=== PATIENT | male | born 1950 | race Caucasian/White ===

== ENCOUNTER → 2017-02-02 | Outpatient (CLI) | payer OTHER ==
[~2017-02-02] MED LIST: AMIT25TA9 PO; AMLO5TAB2 PO; ASP81CT PO; ASPI-84; ATOR40TA PO; ATRV10T PO; AVOD0.5CAP PO; CCLB10TRX; CYCL10TA9 PO; DICY20TA10 PO; DULO30CA; FESO8TAB PO; FLUT12AE4 IH; FLUT16SP22 NS; FLUT1DIS26 IH; HC A28.3 PR; HYDR-1231 PO; HYDR-31; HYDR-3583 PO; HYDR-3816 PO; HYDR1TAB75; HYOS0.1217 PO; HYOS0.1283 SL; MELA1TAB10 PO; NAPR500T3 PO; ONDA8TAB12 PO; ONDA8TAB9 PO; OSLT75C PO; PANT40TA2 PO; PNT40TEC; PREG150C PO; PROM25SU43 RC; PROP20TA23; PROP20TA5 PO; RABE20TA PO; SERT50TA9 PO; SIMV40TA2; SUCR1TAB36 PO; SUMA100T3 PO; TAMS0.4C2 PO; TMSL.4C; TRAM50TA2; TRM50T PO
--- NOTE | 2017-02-02 15:50 | Diagnostic Imaging Report ---
Non-vascular ultrasound of the lateral aspect of the left foot. INDICATION: Red painful lump for 35 years. FINDINGS: There is a 2 x 1.4 x 2.6 cm hyperechoic poorly defined lesion with no internal vascularity demonstrated with color Doppler seen along the lateral aspect of the left foot. Etiology is uncertain. IMPRESSION: 2 cm nonspecific hyperechoic mass corresponding to the palpable lesion in the lateral left aspect of the foot. Correlate clinically and with MRI evaluation if needed. Dictated by: Dictated on workstation # [id number]
== END ==
LOC: RAD 13:36
PROVIDERS: ATTEND Nurse Practitioner Community Health
DX: Q27.9 Congenital malformation of peripheral vascular system, unspecified (principal); R22.42 Localized swelling, mass and lump, left lower limb
CPT/HCPCS: 76881

== ENCOUNTER 2017-02-28 05:34 | Outpatient (CLI) | payer OTHER ==
[~2017-02-28] VITALS: Ht 172.7 cm; Wt 72.6 kg
== END 2017-02-28 11:19 ==
LOC: PREOP 05:34
PROVIDERS: ATTEND Surgery
DX: Z01.818 Encounter for other preprocedural examination (principal); R22.42 Localized swelling, mass and lump, left lower limb

== ENCOUNTER 2017-03-04 07:40 | Day surgery (SDC) | payer OTHER ==
[~2017-03-04] VITALS: Ht 172.7 cm; Wt 72.6 kg
[2017-03-04] MEDS ORDERED: ceFAZolin 1,000 MG (ANCEF) VIAL ONE (07:51)
[2017-03-04] MEDS ORDERED: NS (IVPB) 50 ML ONE ×2 (07:52→10:21)
[2017-03-04 08:05] VITALS: BP 160/104
[2017-03-04] MEDS ORDERED: FAMOTIDINE 20MG/2ML IV (PEPCID) IV ONE (08:15)
[2017-03-04] MEDS ORDERED: meTOprolol 5 MG/5 ML (LOPRESSOR) VIAL IV ONE (08:15)
[2017-03-04] MEDS: LACTATED RINGERS 1,000 ML IV PRN ×2 (08:24→11:12)
[2017-03-04] MEDS ORDERED: TIOT18CA2 IH (09:10)
[2017-03-04] MEDS ORDERED: fentaNYL INJECTION 100 MCG/2 ML AMP ONE (10:09)
[2017-03-04] MEDS ORDERED: ONDANSETRON 4 MG/2 ML (SDV) Z0FRAN ONE (10:09)
[2017-03-04] MEDS ORDERED: SEVOFLURANE (ULTANE) 15 ML INHAL SOLN ONE (10:09)
[2017-03-04] MEDS ORDERED: proPOfol 200 MG/20 ML (DIPRIVAN) VIAL IV ONE (10:09)
[2017-03-04] MEDS ORDERED: LIDOCAINE PF 2% 5 ML (XYLOCAINE) VIAL ONE (10:09)
[2017-03-04] MEDS ORDERED: MIDAZOLAM 2 MG/2 ML (VERSED) VIAL ONE ×2 (10:12→10:13)
[2017-03-04] MEDS ORDERED: BUP/EPI 0.25% 1:200,000 (MARCAINE) 10 ML VIAL IJ ONE (10:15)
--- NOTE | 2017-03-04 10:16 | Progress Note-Pre Operative ---
Pre-Operative Progress Note H&P Reviewed The H&P was reviewed, patient examined and no changes noted. Date Seen by Provider: Mar 04, 2017 Time Seen by Provider: 10:15 Date H&P Reviewed: Mar 04, 2017 Time H&P Reviewed: 10:16 Pre-Operative Diagnosis: lump of left foot SHINE ALLEN MD Mar 04, 2017 10:16 am
[2017-03-04] MEDS ORDERED: CLINDAMYCIN 600 MG/4ML (CLEOCIN) VIAL ONE (10:21)
[2017-03-04] MEDS ORDERED: LACTATED RINGERS 1,000 ML IV ONE (10:41)
--- NOTE | 2017-03-04 11:03 | Progress Note-Post Operative ---
Post-Operative Progess Note Surgeon (s)/Data Communications Engineer (s) Surgeon SHINE ALLEN MD Data Communications Engineer: NOT APPLICABLE Pre-Operative Diagnosis lump of left foot Post-Operative Diagnosis SAME Procedure & Operative Findings Date of Procedure 03/04/17 Procedure Performed/Findings EXCISION Anesthesia Type gEN. Estimated Blood Loss Estimated blood loss (mL): MINIMAL Specimens/Packing Specimens Removed LUMP FROM LEFT SHINE ALLEN MD Mar 04, 2017 11:03 am
[2017-03-04] MEDS ORDERED: HYDR-3812 PO (11:04)
--- NOTE | 2017-03-04 11:05 | Discharge Inst-Simple/Standard ---
Discharge Inst-Standard Discharge Medications New, Converted or Re-Newed RX: RX on Chart Patient Instructions/Follow Up Plan of Care/Instructions/FU: LEFT FOOT TO BE KEPT ELEVATED. dRESSING TO BE REPLACED WITH A bAND-aID IN 48 HOURS. fOLLOW-UP WITH MY NURSE IN 2 WEEKS FOR SUTURE REMOVAL Activity as Tolerated: Yes Discharge Diet: No Restrictions SHINE ALLEN MD Mar 04, 2017 11:05 am
[2017-03-04] MEDS ORDERED: morphine INJ 10 MG/ML 1ML (SYR OR VIAL) IVP PRN (11:15)
[2017-03-04] MEDS ORDERED: MEPERIDINE (DEMEROL) INJ 50 MG/ML IVP PRN (11:15)
[2017-03-04 12:10] VITALS: BP 155/100
[2017-03-04 12:40] VITALS: BP 150/85
--- NOTE | 2017-03-04 12:42 | OPERATIVE REPORT ---
DATE OF SERVICE: 03/04/2017 PREOPERATIVE DIAGNOSIS: A 2 cm lump, left lateral foot. POSTOPERATIVE DIAGNOSIS: A 2 cm lump, left lateral foot. OPERATION: Excision. SURGEON: Shine Allen MD ANESTHESIA: General anesthesia. BLOOD LOSS: Minimal. FLUIDS: 800 mL of crystalloids. TYPE OF WOUND: Type 1 was (clean wound). INDICATION FOR PROCEDURE: This gentleman presented with a painful lump along the lateral aspect of the left foot requiring histological diagnosis. He was offered formal excision to achieve this. Informed consent was obtained after reviewing the operative details and complications of postoperative wound infection and recurrence. DESCRIPTION OF PROCEDURE: He was placed supine on the operating table and general anesthesia induced. Clindamycin was administered intravenously as prophylaxis against wound infection. The left foot was prepared and draped in the usual sterile manner. Pre-emptive analgesia was established using 0.25% Marcaine with epinephrine. An elliptical incision about 4 cm long was made and the lesion excised down to the subcutaneous tissue. The defect was then closed using interrupted 3-0 nylon sutures. A nonadherent dressing was applied. He tolerated the procedure well, was extubated in the operating room and taken to the recovery room in a stable condition. Holland, sponges and instruments were correct at the end of the operation. Job ID: [id number] DocumentID: [id number] Dictated Date: 03/04/2017 11:02:14 Hospice Registered Nurse Date: 03/04/2017 12:41:45 Dictated By: SHINE ALLEN MD [facility]
[2017-03-07] MEDS ORDERED: ceFAZolin 1 GM/NS 50 ML IVPB IV ONE ×2 (07:45)
--- OUTSIDE RECORDS SUMMARY | 2017-03-09 12:07 | XMS REPORT ---
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
--- OUTSIDE RECORDS SUMMARY | 2017-03-09 12:08 | XMS REPORT ---
Author Author LASHAY BLACK [facility] Address [address] [place] [address] Care Team Providers Care Nursing Care Partner Name Role Phone LASHAY BLACK Unavailable PROBLEMS Type Condition ICD9-CM Code [id number] Code Onset Dates Condition Status SNOMED Code Problem Cervicalgia M54.2 Active 86092638 Problem Anxiety F41.9 Active 75724604 Problem Unspecified asthma, uncomplicated J45.909 Active 058984061 Problem Hypertension I10 Active 68447752 Problem Chronic obstructive pulmonary disease, unspecified J44.9 Active [id number] ALLERGIES No Known Allergies SOCIAL HISTORY No smoking Hx information available PLAN OF CARE VITAL SIGNS MEDICATIONS No Known Medications RESULTS No Results PROCEDURES No Known procedures IMMUNIZATIONS No Known Immunizations
--- OUTSIDE RECORDS SUMMARY | 2017-03-09 12:08 | XMS REPORT ---
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
--- OUTSIDE RECORDS SUMMARY | 2017-03-09 12:08 | XMS REPORT ---
Author Author LASHAY BLACK Organization [employer] Address Unknown Phone Unavailable Care Team Providers Care Volunteer Services Manager Name Role Phone LASHAY BLACK CP Unavailable Allergies No Known Allergies Problems Problem Type Condition Code Onset Dates Condition Status Problem Unspecified hearing loss 389.9 Active Problem Other chronic pain 338.29 Active Problem Asthma, unspecified, with (acute) exacerbation 493.92 Active Assessment Cervicalgia M54.2 Active Problem Anxiety F41.9 Active Problem Hypertension I10 Active Problem Cervicalgia M54.2 Active Problem Postconcussion syndrome 310.2 Active Problem Post-traumatic headache, unspecified 339.20 Active Problem Cervicalgia 723.1 Active 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
--- OUTSIDE RECORDS SUMMARY | 2017-03-09 12:08 | XMS REPORT ---
Author Author LASHAY BLACK [facility] Address [address] [place] [address] Care Team Providers Care Wood Crew Supervisor Name Role Phone LASHAY BLACK Unavailable PROBLEMS Type Condition ICD9-CM Code AYA13-LO Code Onset Dates Condition Status SNOMED Code Problem Cervicalgia M54.2 Active 46938663 Problem Anxiety F41.9 Active 80935402 Problem Unspecified asthma, uncomplicated J45.909 Active 322332607 Assessment Other chronic pain G89.29 Aug, Active 34884550 Problem Hypertension I10 Active 29506609 Problem Chronic obstructive pulmonary disease, unspecified J44.9 Active [id number] ALLERGIES No Known Allergies SOCIAL HISTORY No smoking Hx information available PLAN OF CARE VITAL SIGNS MEDICATIONS Medication Instructions Dosage Frequency Start Date End Date Duration Status Hydrocodone-Acetaminophen 7.5-325 MG Orally 3 times a day 1 tablet as needed for pain 8h Nov, 28 days Active RESULTS No Results PROCEDURES No Known procedures IMMUNIZATIONS No Known Immunizations
--- OUTSIDE RECORDS SUMMARY | 2017-03-09 12:08 | XMS REPORT ---
Author Author LASHAY BLACK Organization [employer] Address Unknown Phone Unavailable Care Team Providers Care Machine Shop Worker Name Role Phone LASHAY BLACK CP Unavailable [...] Start Date End Date Status Dosage Hydrocodone-Acetaminophen [facility] [address]-91 7.5-325 MG December 12, 2014 take 1 tablet by Oral route 3 times per day as needed for pain PRN Must last 28 days Results No Known Results Summary Purpose eClinicalWorks Submission
--- OUTSIDE RECORDS SUMMARY | 2017-03-09 12:08 | XMS REPORT ---
Author Author HAZEL VELA [facility] eClinical[employer] Address Unknown Phone Unavailable Care Team Providers Care Junior Architect Name Role Phone HAZEL VELA CP Unavailable Allergies, Adverse Reactions, Alerts Substance Reaction Event Type Penicillin V Potassium Info Not Available Drug Allergy Penicillamine Info Not Available Drug Allergy Cardura XL Info Not Available Drug Allergy Problems Problem Type Condition Code Onset Dates Condition Status Assessment Chest pain R07.9 Active Problem Asthma, unspecified, with (acute) exacerbation 493.92 Active Problem Unspecified hearing loss 389.9 Active Problem Hypertension I10 Active Problem Cervicalgia 723.1 Active Problem Anxiety F41.9 Active Problem Post-traumatic headache, unspecified 339.20 Active Problem Other chronic pain 338.29 Active 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 cyclobenzaprine [facility] [address]-88 10 mg November 25, 2014 1 tablet by Oral route 3 times per day PRN Hydrocodone-Acetaminophen [facility] [address]-70 7.5-325 MG Orally 3 times a day December 12, 2014 1 tablet as needed for pain Aspirin Adult Low Strength [facility] [address]-61 81 MG Orally Once a day 1 tablet Ibuprofen [facility] [address]-81 200 MG Orally every 6 hrs 1 tablet as needed Naproxen [facility] 48398300432 500 MG TAKE ONE TABLET BY MOUTH TWICE DAILY WITH FOOD Lidoderm [facility] [address]-03 5 %(700 mg/patch) Jun 28, 2012 1 PATCH by Topical route 1 time per day(remove patch(s) after 12 hours) Bentyl [facility] [address]-16 20 MG Orally Four times a day Oct 27, 2015 February 24, 2016 1 tablet Avodart [facility] [address]-38 0.5 MG Aug 13, 2014 take 1 capsule (0.5 mg) by oral route once daily Imitrex [facility] [address]-17 25 MG Orally Twice a day 1 tablet as needed Tamsulosin HCl [facility] [address]-66 0.4 MG Orally Once a day 1 capsule 30 minutes after the same meal each day Flonase Allergy Relief [facility] [address]-85 50 MCG/ACT Nasally twice a day December 18, 2015 1 spray in each nostril Advair Diskus [facility] [address]-59 250 mcg-50 mcg Inhalation May 03, 2014 1 puffs 2 times per day Lyrica [facility] [address]-48 150 MG Orally Twice a day February 18, 2015 1 capsule Sertraline HCl [facility] [address]-21 100 MG Orally Once a day 1 tablet Procedures Procedure Coding System Code Date Office Visit, Est Pt., Level 4 CPT-4 31064 December 31, 2015 MEASURE BLOOD OXYGEN LEVEL CPT-4 01593 December 31, 2015 Vital Signs Date/Time: December 31, 2015 Cardiac Monitoring Heart Rate 72 bpm Weight 172 lbs Height 68 in BMI 26.15 Index Oximetry 96 % Blood Pressure Diastolic 80 mmHg Blood Pressure Systolic 120 mmHg Results No Known Results Summary Purpose eClinicalWorks Submission
--- OUTSIDE RECORDS SUMMARY | 2017-03-09 12:08 | XMS REPORT ---
Author Author LASHAY BLACK Organization [employer] Address Unknown Phone Unavailable Care Team Providers Care Industrial Engineering Analyst Name Role Phone LASHAY BLACK CP Unavailable [...] Start Date End Date Status Dosage Hydrocodone-Acetaminophen [facility] [address]-74 7.5-325 MG December 12, 2014 take 1 tablet by Oral route 3 times per day as needed for pain PRN Must last 28 days Results No Known Results Summary Purpose eClinicalWorks Submission
--- OUTSIDE RECORDS SUMMARY | 2017-03-09 12:10 | XMS REPORT | Continuity of Care Document ---
Author Author [facility] Address Unknown Phone Unavailable Allergies Active Description Code Type Severity Reaction Onset Reported/Identified Relationship to Patient Clinical Status Yes Penicillins [id number] Drug Allergy Unknown N/A 07/11/2007 Yes Penicillins Drug Allergy N/A N/A 02/19/2010 Yes Penicillins Drug Allergy 02/19/2010 Yes Cardura XL 4 mg Tablet Extended Rel 24 hr Drug Allergy N/A N/A 04/20/2012 Yes Cardura XL 4 mg Tablet Extended Rel 24 hr Drug Allergy 04/20/2012 Medications Problems Date Dx Coded Attending Type Code Diagnosis Diagnosed By 08/21/2008 PARADISE LOPEZ DO 569.3 Bleeding Rectal 08/21/2008 PARADISE LOPEZ DO 719.42 Pain In Joint Involving Upper Arm 08/21/2008 PARADISE LOPEZ DO 719.46 Pain In Joint Involving Lower Leg 08/21/2008 PARADISE LOPEZ DO 569.3 Bleeding Rectal 08/21/2008 PARADISE LOPEZ DO 719.42 Pain In Joint Involving Upper Arm 08/21/2008 PARADISE LOPEZ DO 719.46 Pain In Joint Involving Lower Leg 08/21/2008 LASHAY BLACK APRN S 569.3 Bleeding Rectal 08/21/2008 LASHAY BLACK APRN S 719.42 Pain In Joint Involving Upper Arm 08/21/2008 LASHAY BLACK APRN S 719.46 Pain In Joint Involving Lower Leg 08/21/2008 569.3 Bleeding Rectal 08/21/2008 719.42 Pain In Joint Involving Upper Arm 08/21/2008 719.46 Pain In Joint Involving Lower Leg 08/21/2008 PARADISE LOPEZ DO 569.3 Bleeding Rectal 08/21/2008 PARADISE LOPEZ DO 719.42 Pain In Joint Involving Upper Arm 08/21/2008 PARADISE LOPEZ DO 719.46 Pain In Joint Involving Lower Leg 08/21/2008 LOPEZ DO, PARADISE K 569.3 Bleeding Rectal 08/21/2008 LOPEZ DO PARADISE K 719.42 Pain In Joint Involving Upper Arm 08/21/2008 LOPEZ DO, PARADISE K 719.46 Pain In Joint Involving Lower Leg 08/21/2008 LOPEZ DO, PARADISE K 569.3 Bleeding Rectal 08/21/2008 LOPEZ DO PARADISE K 719.42 Pain In Joint Involving Upper Arm 08/21/2008 LOPEZ DO PARADISE K 719.46 Pain In Joint Involving Lower Leg 08/21/2008 SOFIA CHILDS LASHAY S 569.3 Bleeding Rectal 08/21/2008 SOFIA CHILDS LASHAY S 719.42 Pain In Joint Involving Upper Arm 08/21/2008 SOFIA CHILDS LASHAY S 719.46 Pain In Joint Involving Lower Leg 08/21/2008 SOFIA CHILDS LASHAY S 569.3 Bleeding Rectal 08/21/2008 ARNAV BLACK APRNNDA S 719.42 Pain In Joint Involving Upper Arm 08/21/2008 ARNAV BLACK APRNNDA S 719.46 Pain In Joint Involving Lower Leg 08/21/2008 ESVIN LINDA MD 569.3 Bleeding Rectal 08/21/2008 ESVIN LINDA MD 719.42 Pain In Joint Involving Upper Arm 08/21/2008 ESVIN LINDA MD 719.46 Pain In Joint Involving Lower Leg 08/21/2008 SOFIA CHILDS LASHAY S 569.3 Bleeding Rectal 08/21/2008 ARNAV BLACK APRNNDA S 719.42 Pain In Joint Involving Upper Arm 08/21/2008 SOFIA CHILDS LASHAY S 719.46 Pain In Joint Involving Lower Leg 08/21/2008 SOFIA CHILDS LASHAY S 569.3 Bleeding Rectal 08/21/2008 SOFIA CHILDS LASHAY S 719.42 Pain In Joint Involving Upper Arm 08/21/2008 SOFIA CHILDS LASHAY S 719.46 Pain In Joint Involving Lower Leg 08/21/2008 SOFIA CHILDS LASHAY S 569.3 Bleeding Rectal 08/21/2008 SOFIA CHILDS LASHAY S 719.42 Pain In Joint Involving Upper Arm 08/21/2008 SOFIA JOB ANALYST LASHAY S 719.46 Pain In Joint Involving Lower Leg 08/21/2008 SOFIA JOB ANALYST, LASHAY S 569.3 Bleeding Rectal 08/21/2008 SOFIA JOB ANALYST, LASHAY S 719.42 Pain In Joint Involving Upper Arm 08/21/2008 SOFIA JOB ANALYST, LASHAY S 719.46 Pain In Joint Involving Lower Leg 08/21/2008 SOFIA JOB ANALYST, LASHAY S 569.3 Bleeding Rectal 08/21/2008 SOFIA JOB ANALYST, LASHAY S 719.42 Pain In Joint Involving Upper Arm 08/21/2008 SOFIA JOB ANALYST, LASHAY S 719.46 Pain In Joint Involving Lower Leg 08/21/2008 SOFIA JOB ANALYST LASHAY S 569.3 Bleeding Rectal 08/21/2008 SOFIA JOB ANALYST LASHAY S 719.42 Pain In Joint Involving Upper Arm 08/21/2008 SOFIA JOB ANALYST LASHAY S 719.46 Pain In Joint Involving Lower Leg 08/21/2008 HALEY DPM, KRYSTLE 569.3 Bleeding Rectal 08/21/2008 HALEY DPM, KRYSTLE 719.42 Pain In Joint Involving Upper Arm 08/21/2008 HALEY DPM, KRYSTLE 719.46 Pain In Joint Involving Lower Leg 08/21/2008 MADL JOB ANALYST, RAJIV L 569.3 Bleeding Rectal 08/21/2008 MADL JOB ANALYST, RAJIV L 719.42 Pain In Joint Involving Upper Arm 08/21/2008 MADL JOB ANALYST, RAJIV L 719.46 Pain In Joint Involving Lower Leg 08/21/2008 SOFIA JOB ANALYST, LASHAY S 569.3 Bleeding Rectal 08/21/2008 SOFIA JOB ANALYST, LASHAY S 719.42 Pain In Joint Involving Upper Arm 08/21/2008 SOFIA JOB ANALYST, LASHAY S 719.46 Pain In Joint Involving Lower Leg 09/23/2008 LOPEZ DO, PARADISE K 272.0 HYPERCHOLESTEROLEMIA PURE 09/23/2008 LOPEZ DO, PARADISE K 401.1 HYPERTENSION, BENIGN ESSENTIAL 09/23/2008 LOPEZ DO, PARADISE K 272.0 HYPERCHOLESTEROLEMIA PURE 09/23/2008 LOPEZ DO, PARADISE K 401.1 HYPERTENSION, BENIGN ESSENTIAL 09/23/2008 SOFIA JOB ANALYST, LASHAY S 272.0 HYPERCHOLESTEROLEMIA PURE 09/23/2008 SOFIA JOB ANALYST, LASHAY S 401.1 HYPERTENSION, BENIGN ESSENTIAL 09/23/2008 272.0 HYPERCHOLESTEROLEMIA PURE 09/23/2008 401.1 HYPERTENSION, BENIGN ESSENTIAL 09/23/2008 LOPEZ DO, PARADISE K 272.0 HYPERCHOLESTEROLEMIA PURE 09/23/2008 LOPEZ DO, PARADISE K 401.1 HYPERTENSION, BENIGN ESSENTIAL 09/23/2008 LOPEZ DO, PARADISE K 272.0 HYPERCHOLESTEROLEMIA PURE 09/23/2008 LOPEZ DO, PARADISE K 401.1 HYPERTENSION, BENIGN ESSENTIAL 09/23/2008 LOPEZ DO, PARADISE K 272.0 HYPERCHOLESTEROLEMIA PURE 09/23/2008 LOPEZ DO, PARADISE K 401.1 HYPERTENSION, BENIGN ESSENTIAL 09/23/2008 SOFIA JOB ANALYST, LASHAY S 272.0 HYPERCHOLESTEROLEMIA PURE 09/23/2008 SOFIA JOB ANALYST, LASHAY S 401.1 HYPERTENSION, BENIGN ESSENTIAL 09/23/2008 SOFIA JOB ANALYST, LASHAY S 272.0 HYPERCHOLESTEROLEMIA PURE 09/23/2008 SOFIA JOB ANALYST, LASHAY S 401.1 HYPERTENSION, BENIGN ESSENTIAL 09/23/2008 ESVIN LINDA MD 272.0 HYPERCHOLESTEROLEMIA PURE 09/23/2008 ESVIN LINDA MD 401.1 HYPERTENSION, BENIGN ESSENTIAL 09/23/2008 SOFIA JOB ANALYST, LASHAY S 272.0 HYPERCHOLESTEROLEMIA PURE 09/23/2008 SOFIA JOB ANALYST, LASHAY S 401.1 HYPERTENSION, BENIGN ESSENTIAL 09/23/2008 SOFIA JOB ANALYST, LASHAY S 272.0 HYPERCHOLESTEROLEMIA PURE 09/23/2008 SOFIA JOB ANALYST, LASHAY S 401.1 HYPERTENSION, BENIGN ESSENTIAL 09/23/2008 SOFIA JOB ANALYST, LASHAY S 272.0 HYPERCHOLESTEROLEMIA PURE 09/23/2008 SOFIA JOB ANALYST, ALSHAY S 401.1 HYPERTENSION, BENIGN ESSENTIAL 09/23/2008 SOFIA JOB ANALYST, LASHAY S 272.0 HYPERCHOLESTEROLEMIA PURE 09/23/2008 SOFIA JOB ANALYST, LASHAY S 401.1 HYPERTENSION, BENIGN ESSENTIAL 09/23/2008 SOFIA JOB ANALYST, LASHAY S 272.0 HYPERCHOLESTEROLEMIA PURE 09/23/2008 SOFIA JOB ANALYST, LASHAY S 401.1 HYPERTENSION, BENIGN ESSENTIAL 09/23/2008 SOFIA JOB ANALYST, LASHAY S 272.0 HYPERCHOLESTEROLEMIA PURE 09/23/2008 SOFIA JOB ANALYST, LASHAY S 401.1 HYPERTENSION, BENIGN ESSENTIAL 09/23/2008 HALEY DPM, KRYSTLE 272.0 HYPERCHOLESTEROLEMIA PURE 09/23/2008 HALEY DPM, KRYSTLE 401.1 HYPERTENSION, BENIGN ESSENTIAL 09/23/2008 MADL JOB ANALYST, RAJIV L 272.0 HYPERCHOLESTEROLEMIA PURE 09/23/2008 MADL JOB ANALYST, RAJIV L 401.1 HYPERTENSION, BENIGN ESSENTIAL 09/23/2008 SOFIA OLMOSN, LASHAY S 272.0 HYPERCHOLESTEROLEMIA PURE 09/23/2008 SOFIA JOB ANALYST, LASHAY S 401.1 HYPERTENSION, BENIGN ESSENTIAL 10/03/2008 PARADISE LOPEZ DO K 719.47 Pain In Joint Involving Ankle And Foot 10/03/2008 PARADISE LOPEZ DO K 719.47 Pain In Joint Involving Ankle And Foot 10/03/2008 LASHAY BLACK APRN S 719.47 Pain In Joint Involving Ankle And Foot 10/03/2008 719.47 Pain In Joint Involving Ankle And Foot 10/03/2008 PARADISE LOPEZ DO K 719.47 Pain In Joint Involving Ankle And Foot 10/03/2008 PARADISE LOPEZ DO K 719.47 Pain In Joint Involving Ankle And Foot 10/03/2008 PARADISE LOPEZ DO K 719.47 Pain In Joint Involving Ankle And Foot 10/03/2008 LASHAY BLACK APRN S 719.47 Pain In Joint Involving Ankle And Foot 10/03/2008 LASHAY BLACK APRN 719.47 Pain In Joint Involving Ankle And Foot 10/03/2008 ESVIN LINDA MD 719.47 Pain In Joint Involving Ankle And Foot 10/03/2008 LASHAY BLACK APRN S 719.47 Pain In Joint Involving Ankle And Foot 10/03/2008 LASHAY BLACK APRN S 719.47 Pain In Joint Involving Ankle And Foot 10/03/2008 LASHAY BLACK APRN S 719.47 Pain In Joint Involving Ankle And Foot 10/03/2008 LASHAY BLACK APRN S 719.47 Pain In Joint Involving Ankle And Foot 10/03/2008 SOFIA JOB ANALYST, LASHAY S 719.47 Pain In Joint Involving Ankle And Foot 10/03/2008 SOFIA JOB ANALYST, LASHAY S 719.47 Pain In Joint Involving Ankle And Foot 10/03/2008 HALEY DPKRYSTLE Gutierrez 719.47 Pain In Joint Involving Ankle And Foot 10/03/2008 MADL JOB ANALYST, RAJIV L 719.47 Pain In Joint Involving Ankle And Foot 10/03/2008 SOFIA JOB ANALYST, LASHAY S 719.47 Pain In Joint Involving Ankle And Foot 10/25/2008 LOPEZ DO, PARADISE K 726.79 Other Enthesopathy Of Ankle And Tarsus 10/25/2008 LOPEZ DO, PARADISE K 726.79 Other Enthesopathy Of Ankle And Tarsus 10/25/2008 SOFIA JOB ANALYST, LASHAY S 726.79 Other Enthesopathy Of Ankle And Tarsus 10/25/2008 726.79 Other Enthesopathy Of Ankle And Tarsus 10/25/2008 LOPEZ DO, PARADISE K 726.79 Other Enthesopathy Of Ankle And Tarsus 10/25/2008 LOPEZ DO, PARADISE K 726.79 Other Enthesopathy Of Ankle And Tarsus 10/25/2008 LOPEZ DO, PARADISE K 726.79 Other Enthesopathy Of Ankle And Tarsus 10/25/2008 SOFIA JOB ANALYST, LASHAY S 726.79 Other Enthesopathy Of Ankle And Tarsus 10/25/2008 SOFIA JOB ANALYST, LASHAY S 726.79 Other Enthesopathy Of Ankle And Tarsus 10/25/2008 ESVIN LINDA MD 726.79 Other Enthesopathy Of Ankle And Tarsus 10/25/2008 SOFIA JOB ANALYST, LASHAY S 726.79 Other Enthesopathy Of Ankle And Tarsus 10/25/2008 SOFIA JOB ANALYST, LASHAY S 726.79 Other Enthesopathy Of Ankle And Tarsus 10/25/2008 SOFIA JOB ANALYST, LASHAY S 726.79 Other Enthesopathy Of Ankle And Tarsus 10/25/2008 SOFIA JOB ANALYST, LASHAY S 726.79 Other Enthesopathy Of Ankle And Tarsus 10/25/2008 SOFIA JOB ANALYST, LASHAY S 726.79 Other Enthesopathy Of Ankle And Tarsus 10/25/2008 SOFIA JOB ANALYST, LASHAY S 726.79 Other Enthesopathy Of Ankle And Tarsus 10/25/2008 HALEY DPM, KRYSTLE 726.79 Other Enthesopathy Of Ankle And Tarsus 10/25/2008 MADL JOB ANALYST, RAJIV L 726.79 Other Enthesopathy Of Ankle And Tarsus 10/25/2008 SOFIA JOB ANALYST, LASHAY S 726.79 Other Enthesopathy Of Ankle And Tarsus 05/14/2009 LOPEZ DO, PARADISE K 789.00 Abdominal Pain Of Childhood 05/14/2009 LOPEZ DO, PARADISE K 789.00 Abdominal Pain Of Childhood 05/14/2009 SOFIA JOB ANALYST, LASHAY S 789.00 Abdominal Pain Of Childhood 05/14/2009 789.00 Abdominal Pain Of Childhood 05/14/2009 LOPEZ DO, PARADISE K 789.00 Abdominal Pain Of Childhood 05/14/2009 LOPEZ DO, PARADISE K 789.00 Abdominal Pain Of Childhood 05/14/2009 LOPEZ DO, PARADISE K 789.00 Abdominal Pain Of Childhood 05/14/2009 SOFIA JOB ANALYST, LASHAY S 789.00 Abdominal Pain Of Childhood 05/14/2009 SOFIA JOB ANALYST, LASHAY S 789.00 Abdominal Pain Of Childhood 05/14/2009 ESVIN LINDA MD 789.00 Abdominal Pain Of Childhood 05/14/2009 SOFIA JOB ANALYST, LASHAY S 789.00 Abdominal Pain Of Childhood 05/14/2009 SOFIA JOB ANALYST, LASHAY S 789.00 Abdominal Pain Of Childhood 05/14/2009 SOFIA JOB ANALYST, LASHAY S 789.00 Abdominal Pain Of Childhood 05/14/2009 SOFIA JOB ANALYST, LASHAY S 789.00 Abdominal Pain Of Childhood 05/14/2009 SOFIA JOB ANALYST, LASHAY S 789.00 Abdominal Pain Of Childhood 05/14/2009 SOFIA JOB ANALYST, LASHAY S 789.00 Abdominal Pain Of Childhood 05/14/2009 HALEY DPM, KRYSTLE 789.00 Abdominal Pain Of Childhood 05/14/2009 MADL JOB ANALYST, RAJIV L 789.00 Abdominal Pain Of Childhood 05/14/2009 SOFIA OLMOSN, LASHAY S 789.00 Abdominal Pain Of Childhood 05/21/2009 LOPEZ DO, PARADISE K 601.0 Prostatitis Acute Bacterial 05/21/2009 LOPEZ DO, PARADISE K 601.0 Prostatitis Acute Bacterial 05/21/2009 SOFIA JOB ANALYST, LASHAY S 601.0 Prostatitis Acute Bacterial 05/21/2009 601.0 Prostatitis Acute Bacterial 05/21/2009 LOPEZ DO, PARADISE K 601.0 Prostatitis Acute Bacterial 05/21/2009 LOPEZ DO, PARADISE K 601.0 Prostatitis Acute Bacterial 05/21/2009 LOPEZ DO, PARADISE K 601.0 Prostatitis Acute Bacterial 05/21/2009 SOFIA JOB ANALYST, LASHAY S 601.0 Prostatitis Acute Bacterial 05/21/2009 SOFIA JOB ANALYST, LASHAY S 601.0 Prostatitis Acute Bacterial 05/21/2009 ESVIN LINDA MD 601.0 Prostatitis Acute Bacterial 05/21/2009 SOFIA JOB ANALYST, LASHAY S 601.0 Prostatitis Acute Bacterial 05/21/2009 SOFIA JOB ANALYST, LASHAY S 601.0 Prostatitis Acute Bacterial 05/21/2009 SOFIA JOB ANALYST, LASHAY S 601.0 Prostatitis Acute Bacterial 05/21/2009 SOFIA JOB ANALYST, LASHAY S 601.0 Prostatitis Acute Bacterial 05/21/2009 SOFIA JOB ANALYST, LASHAY S 601.0 Prostatitis Acute Bacterial 05/21/2009 SOFIA JOB ANALYST, LASHAY S 601.0 Prostatitis Acute Bacterial 05/21/2009 HALEY WELCH, KRYSTLE 601.0 Prostatitis Acute Bacterial 05/21/2009 FIORDALIZA JOB ANALYST, RAJIV L 601.0 Prostatitis Acute Bacterial 05/21/2009 SOFIA JOB ANALYST, LASHAY S 601.0 Prostatitis Acute Bacterial 02/19/2010 LOPEZ DO, PARADISE K 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 02/19/2010 LOPEZ DO, PARADISE K 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 02/19/2010 SOFIA OLMOSN, LASHAY S 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 02/19/2010 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 02/19/2010 LOPEZ DO, PARADISE K 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 02/19/2010 LOPEZ DO, PARADISE K 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 02/19/2010 LOPEZ DO, PARADISE K 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 02/19/2010 SOFIA JOB ANALYST, LASHAY S 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 02/19/2010 SOFIA JOB ANALYST, LASHAY S 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 02/19/2010 ESVIN LINDA MD 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 02/19/2010 SOFIA JOB ANALYST, LASHAY S 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 02/19/2010 SOFIA JOB ANALYST, LASHAY S 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 02/19/2010 SOFIA JOB ANALYST, LASHAY S 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 02/19/2010 SOFIA JOB ANALYST, LASHAY S 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 02/19/2010 SOFIA JOB ANALYST, LASHAY S 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 02/19/2010 SOFIA JOB ANALYST, LASHAY S 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 02/19/2010 HALEY DPM, KRYSTLE 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 02/19/2010 MADL JOB ANALYST, RAJIV L 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 02/19/2010 SOFIA JOB ANALYST, LASHAY S 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 06/22/2010 LOPEZ DO, PARADISE K 788.1 Dysuria 06/22/2010 LOPEZ DO, PARADISE K 788.1 Dysuria 06/22/2010 SOFIA JOB ANALYST, LASHAY S 788.1 Dysuria 06/22/2010 788.1 Dysuria 06/22/2010 LOPEZ DO, PARADISE K 788.1 Dysuria 06/22/2010 LOPEZ DO, PARADISE K 788.1 Dysuria 06/22/2010 LOPEZ DO, PARADISE K 788.1 Dysuria 06/22/2010 SOFIA JOB ANALYST, LASHAY S 788.1 Dysuria 06/22/2010 SOFIA JOB ANALYST, LASHAY S 788.1 Dysuria 06/22/2010 ESVIN LINDA MD 788.1 Dysuria 06/22/2010 SOFIA JOB ANALYST, LASHAY S 788.1 Dysuria 06/22/2010 SOFIA JOB ANALYST, LASHAY S 788.1 Dysuria 06/22/2010 SOFIA JOB ANALYST, LASHAY S 788.1 Dysuria 06/22/2010 SOFIA JOB ANALYST, LASHAY S 788.1 Dysuria 06/22/2010 SOFIA JOB ANALYST, LASHAY S 788.1 Dysuria 06/22/2010 SOFIA JOB ANALYST, LASHAY S 788.1 Dysuria 06/22/2010 HALEY DPM, KRYSTLE 788.1 Dysuria 06/22/2010 MADL JOB ANALYST, RAJIV L 788.1 Dysuria 06/22/2010 SOFIA JOB ANALYST, LASHAY S 788.1 Dysuria 06/29/2010 LOPEZ DO, PARADISE K 465.9 Acute Upper Respiratory Infections Of Unspecified Site 06/29/2010 LOPEZ DO PARADISE K V70.0 GENERAL MEDICAL EXAM, ROUTINE, AT HEALTH CARE FACILITY 06/29/2010 LOPEZ DO PARADISE K 465.9 Acute Upper Respiratory Infections Of Unspecified Site 06/29/2010 LOPEZ DO PARADISE K V70.0 GENERAL MEDICAL EXAM, ROUTINE, AT HEALTH CARE FACILITY 06/29/2010 SOFIA CHILDS LASHAY S 465.9 Acute Upper Respiratory Infections Of Unspecified Site 06/29/2010 SOFIA CHILDS LASHAY S V70.0 GENERAL MEDICAL EXAM, ROUTINE, AT HEALTH CARE FACILITY 06/29/2010 465.9 Acute Upper Respiratory Infections Of Unspecified Site 06/29/2010 V70.0 GENERAL MEDICAL EXAM, ROUTINE, AT HEALTH CARE FACILITY 06/29/2010 LOPEZ DO, PARADISE K 465.9 Acute Upper Respiratory Infections Of Unspecified Site 06/29/2010 LOPEZ DO PARADISE K V70.0 GENERAL MEDICAL EXAM, ROUTINE, AT HEALTH CARE FACILITY 06/29/2010 LOPEZ DO PARADISE K 465.9 Acute Upper Respiratory Infections Of Unspecified Site 06/29/2010 LOPEZ DO, PARADISE K V70.0 GENERAL MEDICAL EXAM, ROUTINE, AT HEALTH CARE FACILITY 06/29/2010 LOPEZ DO, PARADISE K 465.9 Acute Upper Respiratory Infections Of Unspecified Site 06/29/2010 LOPEZ DO, PARADISE K V70.0 GENERAL MEDICAL EXAM, ROUTINE, AT HEALTH CARE FACILITY 06/29/2010 SOFIA CHILDS LASHAY S 465.9 Acute Upper Respiratory Infections Of Unspecified Site 06/29/2010 SOFIA JOB ANALYST, LASHAY S V70.0 GENERAL MEDICAL EXAM, ROUTINE, AT HEALTH CARE FACILITY 06/29/2010 SOFIA JOB ANALYST, LASHAY S 465.9 Acute Upper Respiratory Infections Of Unspecified Site 06/29/2010 SOFIA JOB ANALYST, LASHAY S V70.0 GENERAL MEDICAL EXAM, ROUTINE, AT HEALTH CARE FACILITY 06/29/2010 ESVIN LINDA MD 465.9 Acute Upper Respiratory Infections Of Unspecified Site 06/29/2010 ESVIN LINDA MD V70.0 GENERAL MEDICAL EXAM, ROUTINE, AT HEALTH CARE FACILITY 06/29/2010 SOFIA JOB ANALYST, LASHAY S 465.9 Acute Upper Respiratory Infections Of Unspecified Site 06/29/2010 SOFIA JOB ANALYST, LASHAY S V70.0 GENERAL MEDICAL EXAM, ROUTINE, AT HEALTH CARE FACILITY 06/29/2010 SOFIA JOB ANALYST, LASHAY S 465.9 Acute Upper Respiratory Infections Of Unspecified Site 06/29/2010 SOFIA JOB ANALYST, LASHAY S V70.0 GENERAL MEDICAL EXAM, ROUTINE, AT HEALTH CARE FACILITY 06/29/2010 SOFIA JOB ANALYST, LASHAY S 465.9 Acute Upper Respiratory Infections Of Unspecified Site 06/29/2010 SOFIA JOB ANALYST, LASHAY S V70.0 GENERAL MEDICAL EXAM, ROUTINE, AT HEALTH CARE FACILITY 06/29/2010 SOFIA JOB ANALYST, LASHAY S 465.9 Acute Upper Respiratory Infections Of Unspecified Site 06/29/2010 SOFIA JOB ANALYST, LASHAY S V70.0 GENERAL MEDICAL EXAM, ROUTINE, AT HEALTH CARE FACILITY 06/29/2010 SOFIA JOB ANALYST, LASHAY S 465.9 Acute Upper Respiratory Infections Of Unspecified Site 06/29/2010 SOFIA JOB ANALYST, LASHAY S V70.0 GENERAL MEDICAL EXAM, ROUTINE, AT HEALTH CARE FACILITY 06/29/2010 SOFIA JOB ANALYST, LASHAY S 465.9 Acute Upper Respiratory Infections Of Unspecified Site 06/29/2010 SOFIA JOB ANALYST, LASHAY S V70.0 GENERAL MEDICAL EXAM, ROUTINE, AT HEALTH CARE FACILITY 06/29/2010 HALEY DPM, KRYSTLE 465.9 Acute Upper Respiratory Infections Of Unspecified Site 06/29/2010 HALEY DPM, KRYSTLE V70.0 GENERAL MEDICAL EXAM, ROUTINE, AT HEALTH CARE FACILITY 06/29/2010 MADL JOB ANALYST, ARJIV L 465.9 Acute Upper Respiratory Infections Of Unspecified Site 06/29/2010 MADL JOB ANALYST, RAJIV L V70.0 GENERAL MEDICAL EXAM, ROUTINE, AT HEALTH CARE FACILITY 06/29/2010 SOFIA JOB ANALYST, LASHAY S 465.9 Acute Upper Respiratory Infections Of Unspecified Site 06/29/2010 SOFIA JOB ANALYST, LASHAY S V70.0 GENERAL MEDICAL EXAM, ROUTINE, AT HEALTH CARE FACILITY 07/06/2010 LOPEZ DO, PARADISE K 702.0 Actinic Keratosis 07/06/2010 LOPEZ DO, PARADISE K 702.0 Actinic Keratosis 07/06/2010 SOFIA JOB ANALYST, LASHAY S 702.0 Actinic Keratosis 07/06/2010 702.0 Actinic Keratosis 07/06/2010 LOPEZ DO, PARADISE K 702.0 Actinic Keratosis 07/06/2010 LOPEZ DO, PARADISE K 702.0 Actinic Keratosis 07/06/2010 LOPEZ DO, PARADISE K 702.0 Actinic Keratosis 07/06/2010 SOFIA JOB ANALYST, LASHAY S 702.0 Actinic Keratosis 07/06/2010 SOFIA JOB ANALYST, LASHAY S 702.0 Actinic Keratosis 07/06/2010 ALEXEI WELLER, ESVIN 702.0 Actinic Keratosis 07/06/2010 SOFIA JOB ANALYST, LASHAY S 702.0 Actinic Keratosis 07/06/2010 SOFIA JOB ANALYST, LASHAY S 702.0 Actinic Keratosis 07/06/2010 SOFIA JOB ANALYST, LASHAY S 702.0 Actinic Keratosis 07/06/2010 SOFIA JOB ANALYST, LASHAY S 702.0 Actinic Keratosis 07/06/2010 SOFIA JOB ANALYST, LASHAY S 702.0 Actinic Keratosis 07/06/2010 SOFIA JOB ANALYST, LASHAY S 702.0 Actinic Keratosis 07/06/2010 KRYSTLE MAN DPM 702.0 Actinic Keratosis 07/06/2010 MADL JOB ANALYST, RAJIV L 702.0 Actinic Keratosis 07/06/2010 SOFIA JOB ANALYST, LASHAY S 702.0 Actinic Keratosis 09/29/2010 Ot 530.81 ESOPHAGEAL REFLUX 09/29/2010 Ot 553.3 DIAPHRAGMATIC HERNIA 09/29/2010 Ot 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 09/29/2010 Ot 709.9 SKIN DISORDER NOS 09/29/2010 Ot V76.51 SCREEN MAL NEOP-COLON 06/15/2011 PARADISE LOPEZ DO K 729.1 Myalgia And Myositis Unspecified 06/15/2011 PARADISE LOPEZ DO K 729.1 Myalgia And Myositis Unspecified 06/15/2011 SOFIA CHILDS LASHAY S 729.1 Myalgia And Myositis Unspecified 06/15/2011 729.1 Myalgia And Myositis Unspecified 06/15/2011 PARADISE LOPEZ DO K 729.1 Myalgia And Myositis Unspecified 06/15/2011 PARADISE LOPEZ DO K 729.1 Myalgia And Myositis Unspecified 06/15/2011 PARADISE LOPEZ DO K 729.1 Myalgia And Myositis Unspecified 06/15/2011 SOFIA JOB ANALYST, LASHAY S 729.1 Myalgia And Myositis Unspecified 06/15/2011 SOFIA JOB ANALYST, LASHAY S 729.1 Myalgia And Myositis Unspecified 06/15/2011 ALEXEI WELLER, ESVIN 729.1 Myalgia And Myositis Unspecified 06/15/2011 SOFIA JOB ANALYST, LASHAY S 729.1 Myalgia And Myositis Unspecified 06/15/2011 SOFIA JOB ANALYST, LASHAY S 729.1 Myalgia And Myositis Unspecified 06/15/2011 SOFIA JOB ANALYST, LASHAY S 729.1 Myalgia And Myositis Unspecified 06/15/2011 SOFIA JOB ANALYST, LASHAY S 729.1 Myalgia And Myositis Unspecified 06/15/2011 SOFIA JOB ANALYST, LASHAY S 729.1 Myalgia And Myositis Unspecified 06/15/2011 SOFIA JOB ANALYST, LASHAY S 729.1 Myalgia And Myositis Unspecified 06/15/2011 HALEY WELCH, KRYSTLE 729.1 Myalgia And Myositis Unspecified 06/15/2011 MADL JOB ANALYSTRAJIV 729.1 Myalgia And Myositis Unspecified 06/15/2011 SOFIA JOB ANALYST, LASHAY S 729.1 Myalgia And Myositis Unspecified 07/27/2011 LOPEZ DO, PARADISE K 461.9 Sinusitis Acute 07/27/2011 LOPEZ DO, PARADISE K 466.0 Bronchitis, Acute 07/27/2011 LOPEZ DO, PARADISE K 461.9 Sinusitis Acute 07/27/2011 LOPEZ DO, PARADISE K 466.0 Bronchitis, Acute 07/27/2011 SOFIA JOB ANALYST, LASHAY S 461.9 Sinusitis Acute 07/27/2011 SOFIA JOB ANALYST, LASHAY S 466.0 Bronchitis, Acute 07/27/2011 461.9 Sinusitis Acute 07/27/2011 466.0 Bronchitis, Acute 07/27/2011 LOPEZ DO, PARADISE K 461.9 Sinusitis Acute 07/27/2011 LOPEZ DO, PARADISE K 466.0 Bronchitis, Acute 07/27/2011 LOPEZ DO, PARADISE K 461.9 Sinusitis Acute 07/27/2011 LOPEZ DO, PARADISE K 466.0 Bronchitis, Acute 07/27/2011 LOPEZ DO, PARADISE K 461.9 Sinusitis Acute 07/27/2011 LOPEZ DO, PARADISE K 466.0 Bronchitis, Acute 07/27/2011 SOFIA JOB ANALYST, LASHAY S 461.9 Sinusitis Acute 07/27/2011 SOFIA JOB ANALYST, LASHAY S 466.0 Bronchitis, Acute 07/27/2011 SOFIA JOB ANALYST, LASHAY S 461.9 Sinusitis Acute 07/27/2011 SOFIA JOB ANALYST, LASHAY S 466.0 Bronchitis, Acute 07/27/2011 ESVIN LINDA MD 461.9 Sinusitis Acute 07/27/2011 ESVIN LINDA MD 466.0 Bronchitis, Acute 07/27/2011 SOFIA JOB ANALYST, LASHAY S 461.9 Sinusitis Acute 07/27/2011 SOFIA JOB ANALYST, LASHAY S 466.0 Bronchitis, Acute 07/27/2011 SOFIA JOB ANALYST, LASHAY S 461.9 Sinusitis Acute 07/27/2011 SOFIA JOB ANALYST, LASHAY S 466.0 Bronchitis, Acute 07/27/2011 SOFIA JOB ANALYST, LASHAY S 461.9 Sinusitis Acute 07/27/2011 SOFIA JOB ANALYST, LASHAY S 466.0 Bronchitis, Acute 07/27/2011 SOFIA JOB ANALYST, LASHAY S 461.9 Sinusitis Acute 07/27/2011 SOFIA JOB ANALYST, LASHAY S 466.0 Bronchitis, Acute 07/27/2011 SOFIA JOB ANALYST, LASHAY S 461.9 Sinusitis Acute 07/27/2011 SOFIA JOB ANALYST, LASHAY S 466.0 Bronchitis, Acute 07/27/2011 SOFIA JOB ANALYST, LASHAY S 461.9 Sinusitis Acute 07/27/2011 SOFIA JOB ANALYST, LASHAY S 466.0 Bronchitis, Acute 07/27/2011 HALEY DPM, KRYSTLE 461.9 Sinusitis Acute 07/27/2011 HALEY DPM, KRYSTLE 466.0 Bronchitis, Acute 07/27/2011 MADL JOB ANALYST, RAJIV L 461.9 Sinusitis Acute 07/27/2011 MADL JOB ANALYST, RAJIV L 466.0 Bronchitis, Acute 07/27/2011 SOFIA JOB ANALYST, LASHAY S 461.9 Sinusitis Acute 07/27/2011 SOFIA JOB ANALYST, LASHAY S 466.0 Bronchitis, Acute 08/20/2011 LOPEZ DO, PARADISE K 455.6 UNSPECIFIED HEMORRHOIDS WITHOUT COMPLICATION 08/20/2011 LOEPZ DO, PARADISE K 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 AND OTHER LOWER URINARY TRACT SYMPTOMS (LUTS) 08/20/2011 LOPEZ DO, PARADISE K 455.6 UNSPECIFIED HEMORRHOIDS WITHOUT COMPLICATION 08/20/2011 LOPEZ DO, PARADISE K 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 AND OTHER LOWER URINARY TRACT SYMPTOMS (LUTS) 08/20/2011 SOFIA JOB ANALYST, LASHAY S 455.6 UNSPECIFIED HEMORRHOIDS WITHOUT COMPLICATION 08/20/2011 SOFIA JOB ANALYST, LASHAY S 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 AND OTHER LOWER URINARY TRACT SYMPTOMS (LUTS) 08/20/2011 455.6 UNSPECIFIED HEMORRHOIDS WITHOUT COMPLICATION 08/20/2011 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 AND OTHER LOWER URINARY TRACT SYMPTOMS (LUTS) 08/20/2011 LOPEZ DO, PARADISE K 455.6 UNSPECIFIED HEMORRHOIDS WITHOUT COMPLICATION 08/20/2011 LOPEZ DO, PARADISE K 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 AND OTHER LOWER URINARY TRACT SYMPTOMS (LUTS) 08/20/2011 LOPEZ DO, PARADISE K 455.6 UNSPECIFIED HEMORRHOIDS WITHOUT COMPLICATION 08/20/2011 LOPEZ DO, PARADISE K 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 AND OTHER LOWER URINARY TRACT SYMPTOMS (LUTS) 08/20/2011 LOPEZ DO, PARADISE K 455.6 UNSPECIFIED HEMORRHOIDS WITHOUT COMPLICATION 08/20/2011 LOPEZ DO, PARADISE K 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 AND OTHER LOWER URINARY TRACT SYMPTOMS (LUTS) 08/20/2011 SOFIA JOB ANALYST, LASHAY S 455.6 UNSPECIFIED HEMORRHOIDS WITHOUT COMPLICATION 08/20/2011 SOFIA JOB ANALYST, LASHAY S 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 AND OTHER LOWER URINARY TRACT SYMPTOMS (LUTS) 08/20/2011 SOFIA JOB ANALYST, LASHAY S 455.6 UNSPECIFIED HEMORRHOIDS WITHOUT COMPLICATION 08/20/2011 SOFIA JOB ANALYST, LASHAY S 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 AND OTHER LOWER URINARY TRACT SYMPTOMS (LUTS) 08/20/2011 ESVIN LINDA MD 455.6 UNSPECIFIED HEMORRHOIDS WITHOUT COMPLICATION 08/20/2011 ESVIN LINDA MD 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 AND OTHER LOWER URINARY TRACT SYMPTOMS (LUTS) 08/20/2011 SOFIA JOB ANALYST, LASHAY S 455.6 UNSPECIFIED HEMORRHOIDS WITHOUT COMPLICATION 08/20/2011 SOFIA JOB ANALYST, LASHAY S 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 AND OTHER LOWER URINARY TRACT SYMPTOMS (LUTS) 08/20/2011 SOFIA JOB ANALYST, LASHAY S 455.6 UNSPECIFIED HEMORRHOIDS WITHOUT COMPLICATION 08/20/2011 SOFIA JOB ANALYST, LASHAY S 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 AND OTHER LOWER URINARY TRACT SYMPTOMS (LUTS) 08/20/2011 SOIFA JOB ANALYST, LASHAY S 455.6 UNSPECIFIED HEMORRHOIDS WITHOUT COMPLICATION 08/20/2011 SOFIA JOB ANALYST, LASHAY S 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 AND OTHER LOWER URINARY TRACT SYMPTOMS (LUTS) 08/20/2011 SOFIA JOB ANALYST, LASHAY S 455.6 UNSPECIFIED HEMORRHOIDS WITHOUT COMPLICATION 08/20/2011 SOFIA JOB ANALYST, LASHAY S 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 AND OTHER LOWER URINARY TRACT SYMPTOMS (LUTS) 08/20/2011 SOFIA JOB ANALYST, LASHAY S 455.6 UNSPECIFIED HEMORRHOIDS WITHOUT COMPLICATION 08/20/2011 SOFIA JOB ANALYST, LASHAY S 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 AND OTHER LOWER URINARY TRACT SYMPTOMS (LUTS) 08/20/2011 SOFIA JOB ANALYST, LASHAY S 455.6 UNSPECIFIED HEMORRHOIDS WITHOUT COMPLICATION 08/20/2011 SOFIA JOB ANALYST, LASHAY S 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 AND OTHER LOWER URINARY TRACT SYMPTOMS (LUTS) 08/20/2011 HALEY DPM, KRYSTLE 455.6 UNSPECIFIED HEMORRHOIDS WITHOUT COMPLICATION 08/20/2011 HALEY DPM, KRYSTLE 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 AND OTHER LOWER URINARY TRACT SYMPTOMS (LUTS) 08/20/2011 MADL JOB ANALYST, RAJIV L 455.6 UNSPECIFIED HEMORRHOIDS WITHOUT COMPLICATION 08/20/2011 MADL JOB ANALYST, RAJIV L 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 AND OTHER LOWER URINARY TRACT SYMPTOMS (LUTS) 08/20/2011 SOFIA JOB ANALYST, LASHAY S 455.6 UNSPECIFIED HEMORRHOIDS WITHOUT COMPLICATION 08/20/2011 SOFIA JOB ANALYST, LASHAY S 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 AND OTHER LOWER URINARY TRACT SYMPTOMS (LUTS) 10/28/2011 LOPEZ DO PARADISE K 558.9 OTHER AND UNSPECIFIED NONINFECTIOUS GASTROENTERITIS AND COLITIS 10/28/2011 LOPEZ DO PARADISE K 564.00 CONSTIPATION 10/28/2011 LOPEZ DO PARADISE K 558.9 OTHER AND UNSPECIFIED NONINFECTIOUS GASTROENTERITIS AND COLITIS 10/28/2011 LOPEZ DO PARADISE K 564.00 CONSTIPATION 10/28/2011 SOFIA JOB ANALYST, LASHAY S 558.9 OTHER AND UNSPECIFIED NONINFECTIOUS GASTROENTERITIS AND COLITIS 10/28/2011 SOFIA JOB ANALYST, LASHAY S 564.00 CONSTIPATION 10/28/2011 558.9 OTHER AND UNSPECIFIED NONINFECTIOUS GASTROENTERITIS AND COLITIS 10/28/2011 564.00 CONSTIPATION 10/28/2011 LOPEZ DO, PARADISE K 558.9 OTHER AND UNSPECIFIED NONINFECTIOUS GASTROENTERITIS AND COLITIS 10/28/2011 LOPEZ DO, PARADISE K 564.00 CONSTIPATION 10/28/2011 LOPEZ DO, PARADISE K 558.9 OTHER AND UNSPECIFIED NONINFECTIOUS GASTROENTERITIS AND COLITIS 10/28/2011 LOPEZ DO, PARADISE K 564.00 CONSTIPATION 10/28/2011 LOPEZ DO, PARADISE K 558.9 OTHER AND UNSPECIFIED NONINFECTIOUS GASTROENTERITIS AND COLITIS 10/28/2011 LOPEZ DO, PARADISE K 564.00 CONSTIPATION 10/28/2011 ARNAV BLACK APRNNDA S 558.9 OTHER AND UNSPECIFIED NONINFECTIOUS GASTROENTERITIS AND COLITIS 10/28/2011 SOFIA CHILDS LASHAY S 564.00 CONSTIPATION 10/28/2011 SOFIA CHILDS LASHAY S 558.9 OTHER AND UNSPECIFIED NONINFECTIOUS GASTROENTERITIS AND COLITIS 10/28/2011 SOFIA CHILDS LASHAY S 564.00 CONSTIPATION 10/28/2011 ESVIN LINDA MD 558.9 OTHER AND UNSPECIFIED NONINFECTIOUS GASTROENTERITIS AND COLITIS 10/28/2011 ESVIN LINDA MD 564.00 CONSTIPATION 10/28/2011 ARNAV BLACK APRNNDA S 558.9 OTHER AND UNSPECIFIED NONINFECTIOUS GASTROENTERITIS AND COLITIS 10/28/2011 SOFIA JOB ANALYST, LASHAY S 564.00 CONSTIPATION 10/28/2011 SOFIA JOB ANALYST, LASHAY S 558.9 OTHER AND UNSPECIFIED NONINFECTIOUS GASTROENTERITIS AND COLITIS 10/28/2011 SOFIA JOB ANALYST, LASHAY S 564.00 CONSTIPATION 10/28/2011 SOFIA JOB ANALYST, LASHAY S 558.9 OTHER AND UNSPECIFIED NONINFECTIOUS GASTROENTERITIS AND COLITIS 10/28/2011 SOFIA JOB ANALYST, LASHAY S 564.00 CONSTIPATION 10/28/2011 SOFIA CHILDS LASHAY S 558.9 OTHER AND UNSPECIFIED NONINFECTIOUS GASTROENTERITIS AND COLITIS 10/28/2011 SOFIA JOB ANALYST, LASHAY S 564.00 CONSTIPATION 10/28/2011 SOFIA JOB ANALYST, LASHAY S 558.9 OTHER AND UNSPECIFIED NONINFECTIOUS GASTROENTERITIS AND COLITIS 10/28/2011 SOFIA JOB ANALYST, LASHAY S 564.00 CONSTIPATION 10/28/2011 SOFIA JOB ANALYST, LASHAY S 558.9 OTHER AND UNSPECIFIED NONINFECTIOUS GASTROENTERITIS AND COLITIS 10/28/2011 SOFIA JOB ANALYST, LASHAY S 564.00 CONSTIPATION 10/28/2011 HALEY DPM, KRYSTLE 558.9 OTHER AND UNSPECIFIED NONINFECTIOUS GASTROENTERITIS AND COLITIS 10/28/2011 HALEY DPM, KRYSTLE 564.00 CONSTIPATION 10/28/2011 MADL JOB ANALYST, RAJIV L 558.9 OTHER AND UNSPECIFIED NONINFECTIOUS GASTROENTERITIS AND COLITIS 10/28/2011 MADL JOB ANALYST, RAJIV L 564.00 CONSTIPATION 10/28/2011 SOFIA JOB ANALYST, LASHAY S 558.9 OTHER AND UNSPECIFIED NONINFECTIOUS GASTROENTERITIS AND COLITIS 10/28/2011 SOFIA JOB ANALYST, LASHAY S 564.00 CONSTIPATION 12/09/2011 LOPEZ DO, PARADISE K 338.29 CHRONIC PAIN 12/09/2011 LOPEZ DO, PARADISE K 338.29 CHRONIC PAIN 12/09/2011 SOFIA JOB ANALYST, LASHAY S 338.29 CHRONIC PAIN 12/09/2011 338.29 CHRONIC PAIN 12/09/2011 LOPEZ DO, PARADISE K 338.29 CHRONIC PAIN 12/09/2011 LOPEZ DO, PARADISE K 338.29 CHRONIC PAIN 12/09/2011 LOPEZ DO, PARADISE K 338.29 CHRONIC PAIN 12/09/2011 SOFIA JOB ANALYST, LASHAY S 338.29 CHRONIC PAIN 12/09/2011 SOFIA JOB ANALYST, LASHAY S 338.29 CHRONIC PAIN 12/09/2011 ESVIN LINDA MD 338.29 CHRONIC PAIN 12/09/2011 SOFIA JOB ANALYST, LASHAY S 338.29 CHRONIC PAIN 12/09/2011 SOFIA JOB ANALYST, LASHAY S 338.29 CHRONIC PAIN 12/09/2011 SOFIA JOB ANALYST, LASHAY S 338.29 CHRONIC PAIN 12/09/2011 SOFIA JOB ANALYST, LASHAY S 338.29 CHRONIC PAIN 12/09/2011 SOFIA JOB ANALYST, LASHAY S 338.29 CHRONIC PAIN 12/09/2011 SOFIA JOB ANALYST, LASHAY S 338.29 CHRONIC PAIN 12/09/2011 HALEY DPM, KRYSTLE 338.29 CHRONIC PAIN 12/09/2011 MADL JOB ANALYST, RAJIV L 338.29 CHRONIC PAIN 12/09/2011 SOFIA JOB ANALYST, LASHAY S 338.29 CHRONIC PAIN 12/23/2011 LOPEZ DO, PARADISE K 723.1 CERVICALGIA 12/23/2011 LOPEZ DO, PARADISE K 785.6 ENLARGEMENT OF LYMPH NODES 12/23/2011 LOPEZ DO, PARADISE K 723.1 CERVICALGIA 12/23/2011 LOPEZ DO, PARADISE K 785.6 ENLARGEMENT OF LYMPH NODES 12/23/2011 SOFIA JOB ANALYST, LASHAY S 723.1 CERVICALGIA 12/23/2011 SOFIA JOB ANALYST, LASHAY S 785.6 ENLARGEMENT OF LYMPH NODES 12/23/2011 723.1 CERVICALGIA 12/23/2011 785.6 ENLARGEMENT OF LYMPH NODES 12/23/2011 LOPEZ DO, PARADISE K 723.1 CERVICALGIA 12/23/2011 LOPEZ DO, PARADISE K 785.6 ENLARGEMENT OF LYMPH NODES 12/23/2011 LOPEZ DO, PARADISE K 723.1 CERVICALGIA 12/23/2011 LOPEZ DO, PARADISE K 785.6 ENLARGEMENT OF LYMPH NODES 12/23/2011 LOPEZ DO, PARADISE K 723.1 CERVICALGIA 12/23/2011 LOPEZ DO, PARADISE K 785.6 ENLARGEMENT OF LYMPH NODES 12/23/2011 SOFIA JOB ANALYST, LASHAY S 723.1 CERVICALGIA 12/23/2011 SOFIA JOB ANALYST, LASHAY S 785.6 ENLARGEMENT OF LYMPH NODES 12/23/2011 SOFIA JOB ANALYST, LASHAY S 723.1 CERVICALGIA 12/23/2011 SOFIA JOB ANALYST, LASHAY S 785.6 ENLARGEMENT OF LYMPH NODES 12/23/2011 ESVIN LINDA MD 723.1 CERVICALGIA 12/23/2011 ESVIN LINDA MD 785.6 ENLARGEMENT OF LYMPH NODES 12/23/2011 SOFIA JOB ANALYST, LASHAY S 723.1 CERVICALGIA 12/23/2011 SOFIA JOB ANALYST, LASHAY S 785.6 ENLARGEMENT OF LYMPH NODES 12/23/2011 SOFIA JOB ANALYST, LASHAY S 723.1 CERVICALGIA 12/23/2011 SOFIA JOB ANALYST, LASHAY S 785.6 ENLARGEMENT OF LYMPH NODES 12/23/2011 SOFIA JOB ANALYST, LASHAY S 723.1 CERVICALGIA 12/23/2011 SOFIA JOB ANALYST, LASHAY S 785.6 ENLARGEMENT OF LYMPH NODES 12/23/2011 SOFIA JOB ANALYST, LASHAY S 723.1 CERVICALGIA 12/23/2011 SOFIA JOB ANALYST, LASHAY S 785.6 ENLARGEMENT OF LYMPH NODES 12/23/2011 SOFIA JOB ANALYST, LASHAY S 723.1 CERVICALGIA 12/23/2011 SOFIA JOB ANALYST, LASHAY S 785.6 ENLARGEMENT OF LYMPH NODES 12/23/2011 SOFIA JOB ANALYST, LASHAY S 723.1 CERVICALGIA 12/23/2011 SOFIA JOB ANALYST, LASHAY S 785.6 ENLARGEMENT OF LYMPH NODES 12/23/2011 HALEY DPM, KRYSTLE 723.1 CERVICALGIA 12/23/2011 HALEY DPM, KRYSTLE 785.6 ENLARGEMENT OF LYMPH NODES 12/23/2011 MADL JOB ANALYST, RAJIV L 723.1 CERVICALGIA 12/23/2011 MADL JOB ANALYST, RAJIV L 785.6 ENLARGEMENT OF LYMPH NODES 12/23/2011 SOFIA JOB ANALYST, LASHAY S 723.1 CERVICALGIA 12/23/2011 SOFIA JOB ANALYST, LASHAY S 785.6 ENLARGEMENT OF LYMPH NODES 03/14/2012 LOPEZ DO, PARADISE K 389.9 UNSPECIFIED HEARING LOSS 03/14/2012 LOPEZ DO, PARADISE K 690.10 SEBORRHEIC DERMATITIS UNSPECIFIED 03/14/2012 LOPEZ DO, PARADISE K 389.9 UNSPECIFIED HEARING LOSS 03/14/2012 LOPEZ DO, PARADISE K 690.10 SEBORRHEIC DERMATITIS UNSPECIFIED 03/14/2012 SOFIA JOB ANALYST, LASHAY S 389.9 UNSPECIFIED HEARING LOSS 03/14/2012 SOFIA JOB ANALYST, LASHAY S 690.10 SEBORRHEIC DERMATITIS UNSPECIFIED 03/14/2012 389.9 UNSPECIFIED HEARING LOSS 03/14/2012 690.10 SEBORRHEIC DERMATITIS UNSPECIFIED 03/14/2012 LOPEZ DO, PARADISE K 389.9 UNSPECIFIED HEARING LOSS 03/14/2012 LOPEZ DO, PARADISE K 690.10 SEBORRHEIC DERMATITIS UNSPECIFIED 03/14/2012 LOPEZ DO, PARADISE K 389.9 UNSPECIFIED HEARING LOSS 03/14/2012 LOPEZ DO, PARADISE K 690.10 SEBORRHEIC DERMATITIS UNSPECIFIED 03/14/2012 LOPEZ DO, PARADISE K 389.9 UNSPECIFIED HEARING LOSS 03/14/2012 LOPEZ DO, PARADISE K 690.10 SEBORRHEIC DERMATITIS UNSPECIFIED 03/14/2012 ARNAV BLACK APRNNDA S 389.9 UNSPECIFIED HEARING LOSS 03/14/2012 BOB BLACK APRNA S 690.10 SEBORRHEIC DERMATITIS UNSPECIFIED 03/14/2012 BOB BLACK APRNA S 389.9 UNSPECIFIED HEARING LOSS 03/14/2012 LASHAY BLACK APRN S 690.10 SEBORRHEIC DERMATITIS UNSPECIFIED 03/14/2012 ESVIN LINDA MD 389.9 UNSPECIFIED HEARING LOSS 03/14/2012 ESVIN LINDA MD 690.10 SEBORRHEIC DERMATITIS UNSPECIFIED 03/14/2012 BOB BLACK APRNA S 389.9 UNSPECIFIED HEARING LOSS 03/14/2012 BOB BLACK APRNA S 690.10 SEBORRHEIC DERMATITIS UNSPECIFIED 03/14/2012 ARNAV BLACK APRNNDA S 389.9 UNSPECIFIED HEARING LOSS 03/14/2012 ARNAV BLACK APRNNDA S 690.10 SEBORRHEIC DERMATITIS UNSPECIFIED 03/14/2012 ARNAV BLACK APRNNDA S 389.9 UNSPECIFIED HEARING LOSS 03/14/2012 ARNAV BLACK APRNNDA S 690.10 SEBORRHEIC DERMATITIS UNSPECIFIED 03/14/2012 SOFIA CHILDS LASHAY S 389.9 UNSPECIFIED HEARING LOSS 03/14/2012 ARNAV BLACK APRNNDA S 690.10 SEBORRHEIC DERMATITIS UNSPECIFIED 03/14/2012 SOFIA CHILDS LASHAY S 389.9 UNSPECIFIED HEARING LOSS 03/14/2012 ARNAV BLACK APRNNDA S 690.10 SEBORRHEIC DERMATITIS UNSPECIFIED 03/14/2012 SOFIA JOB ANALYST, LASHAY S 389.9 UNSPECIFIED HEARING LOSS 03/14/2012 SOFIA JOB ANALYST, LASHAY S 690.10 SEBORRHEIC DERMATITIS UNSPECIFIED 03/14/2012 HALEY DPM, KRYSTLE 389.9 UNSPECIFIED HEARING LOSS 03/14/2012 HALEY DPM, KRYSTLE 690.10 SEBORRHEIC DERMATITIS UNSPECIFIED 03/14/2012 MADL JOB ANALYST, RAJIV L 389.9 UNSPECIFIED HEARING LOSS 03/14/2012 MADL JOB ANALYST, RAJIV L 690.10 SEBORRHEIC DERMATITIS UNSPECIFIED 03/14/2012 SOFIA JOB ANALYST, LASHAY S 389.9 UNSPECIFIED HEARING LOSS 03/14/2012 SOFIA JOB ANALYST, LASHAY S 690.10 SEBORRHEIC DERMATITIS UNSPECIFIED 07/11/2012 PARADISE LOPEZ DO K 493.92 ASTHMA WITH ACUTE EXACERBATION 07/11/2012 PARADISE LOPEZ DO K 493.92 ASTHMA WITH ACUTE EXACERBATION 07/11/2012 SOFIA CHILDS, LASHAY S 493.92 ASTHMA WITH ACUTE EXACERBATION 07/11/2012 493.92 ASTHMA WITH ACUTE EXACERBATION 07/11/2012 PARADISE LOPEZ DO K 493.92 ASTHMA WITH ACUTE EXACERBATION 07/11/2012 PARADISE LOPEZ DO K 493.92 ASTHMA WITH ACUTE EXACERBATION 07/11/2012 PARADISE LOPEZ DO K 493.92 ASTHMA WITH ACUTE EXACERBATION 07/11/2012 SOFIA CHILDS, LASHAY S 493.92 ASTHMA WITH ACUTE EXACERBATION 07/11/2012 SOFIA CHILDS, LASHAY S 493.92 ASTHMA WITH ACUTE EXACERBATION 07/11/2012 ESVIN LINDA MD 493.92 ASTHMA WITH ACUTE EXACERBATION 07/11/2012 SOFIA JOB ANALYST, LASHAY S 493.92 ASTHMA WITH ACUTE EXACERBATION 07/11/2012 SOFIA JOB ANALYST, LASHAY S 493.92 ASTHMA WITH ACUTE EXACERBATION 07/11/2012 SOFIA JOB ANALYST, LASHAY S 493.92 ASTHMA WITH ACUTE EXACERBATION 07/11/2012 SOFIA JOB ANALYST, LASHAY S 493.92 ASTHMA WITH ACUTE EXACERBATION 07/11/2012 SOFIA JOB ANALYST, LASHAY S 493.92 ASTHMA WITH ACUTE EXACERBATION 07/11/2012 SOFIA JOB ANALYST, LASHAY S 493.92 ASTHMA WITH ACUTE EXACERBATION 07/11/2012 HALEY DPMKRYSTLE 493.92 ASTHMA WITH ACUTE EXACERBATION 07/11/2012 MAGDALENOKuldeep JOB ANALYSTRAJIV 493.92 ASTHMA WITH ACUTE EXACERBATION 07/11/2012 SOFIA JOB ANALYST, LASHAY S 493.92 ASTHMA WITH ACUTE EXACERBATION 08/07/2012 LOPEZ DO, PARADISE K 729.2 NEURALGIA NEURITIS AND RADICULITIS UNSPECIFIED 08/07/2012 LOPEZ DO, PARADISE K V05.8 ZOSTAVAX DX 08/07/2012 LOPEZ DO, PARADISE K 729.2 NEURALGIA NEURITIS AND RADICULITIS UNSPECIFIED 08/07/2012 LOPEZ DO, PARADISE K V05.8 ZOSTAVAX DX 08/07/2012 SOFIA CHILDS, LASHAY S 729.2 NEURALGIA NEURITIS AND RADICULITIS UNSPECIFIED 08/07/2012 ARNAV BLACK APRNNDA S V05.8 ZOSTAVAX DX 08/07/2012 729.2 NEURALGIA NEURITIS AND RADICULITIS UNSPECIFIED 08/07/2012 V05.8 ZOSTAVAX DX 08/07/2012 LOPEZ DO, PARADISE K 729.2 NEURALGIA NEURITIS AND RADICULITIS UNSPECIFIED 08/07/2012 LOPEZ DO, PARADISE K V05.8 ZOSTAVAX DX 08/07/2012 LOPEZ DO, PARADISE K 729.2 NEURALGIA NEURITIS AND RADICULITIS UNSPECIFIED 08/07/2012 LOPEZ DO, PARADISE K V05.8 ZOSTAVAX DX 08/07/2012 LOPEZ DO, PARADISE K 729.2 NEURALGIA NEURITIS AND RADICULITIS UNSPECIFIED 08/07/2012 LOPEZ DO, PARADISE K V05.8 ZOSTAVAX DX 08/07/2012 SOFIA JOB ANALYST, LASHAY S 729.2 NEURALGIA NEURITIS AND RADICULITIS UNSPECIFIED 08/07/2012 SOFIA JOB ANALYST, LASHAY S V05.8 ZOSTAVAX DX 08/07/2012 SOFIA JOB ANALYST, LASHAY S 729.2 NEURALGIA NEURITIS AND RADICULITIS UNSPECIFIED 08/07/2012 ARNAV BLACK APRNNDA S V05.8 ZOSTAVAX DX 08/07/2012 ESVIN LINDA MD 729.2 NEURALGIA NEURITIS AND RADICULITIS UNSPECIFIED 08/07/2012 ESVIN LINDA MD V05.8 ZOSTAVAX DX 08/07/2012 SOFIA JOB ANALYST, LASHAY S 729.2 NEURALGIA NEURITIS AND RADICULITIS UNSPECIFIED 08/07/2012 SOFIA JOB ANALYST, LASHAY S V05.8 ZOSTAVAX DX 08/07/2012 SOFIA JOB ANALYST, LASHAY S 729.2 NEURALGIA NEURITIS AND RADICULITIS UNSPECIFIED 08/07/2012 SOFIA JOB ANALYST, LASHAY S V05.8 ZOSTAVAX DX 08/07/2012 SOFIA JOB ANALYST, LASHAY S 729.2 NEURALGIA NEURITIS AND RADICULITIS UNSPECIFIED 08/07/2012 SOFIA JOB ANALYST, LASHAY S V05.8 ZOSTAVAX DX 08/07/2012 SOFIA JOB ANALYST, LASHAY S 729.2 NEURALGIA NEURITIS AND RADICULITIS UNSPECIFIED 08/07/2012 SOFIA JOB ANALYST, LASHAY S V05.8 ZOSTAVAX DX 08/07/2012 SOFIA JOB ANALYST, LASHAY S 729.2 NEURALGIA NEURITIS AND RADICULITIS UNSPECIFIED 08/07/2012 SOFIA JOB ANALYST, LASHAY S V05.8 ZOSTAVAX DX 08/07/2012 SOFIA JOB ANALYST, LASHAY S 729.2 NEURALGIA NEURITIS AND RADICULITIS UNSPECIFIED 08/07/2012 SOFIA JOB ANALYST, LASHAY S V05.8 ZOSTAVAX DX 08/07/2012 HALEY DPM, KRYSTLE 729.2 NEURALGIA NEURITIS AND RADICULITIS UNSPECIFIED 08/07/2012 HALEY DPM, KRYSTLE V05.8 ZOSTAVAX DX 08/07/2012 MADL JOB ANALYST, RAJIV L 729.2 NEURALGIA NEURITIS AND RADICULITIS UNSPECIFIED 08/07/2012 MADL JOB ANALYST, RAJIV L V05.8 ZOSTAVAX DX 08/07/2012 SOFIA JOB ANALYST, LASHAY S 729.2 NEURALGIA NEURITIS AND RADICULITIS UNSPECIFIED 08/07/2012 SOFIA CHILDS LASHAY S V05.8 ZOSTAVAX DX 10/29/2012 Ot 487.1 FLU W RESP MANIFEST NEC 10/29/2012 Ot 786.2 COUGH 06/25/2013 LOPEZ DO, PARADISE K V04.81 FLU SHOT 06/25/2013 LOPEZ DO, PARADISE K V04.81 FLU SHOT 06/25/2013 LOPEZ DO, PARADISE K V04.81 FLU SHOT 06/25/2013 SOFIA JOB ANALYST, LASHAY S V04.81 FLU SHOT 06/25/2013 SOFIA JOB ANALYST, LASHAY S V04.81 FLU SHOT 06/25/2013 ESVIN LINDA MD V04.81 FLU SHOT 06/25/2013 SOFIA JOB ANALYST, LASHAY S V04.81 FLU SHOT 06/25/2013 SOFIA JOB ANALYST, LASHAY S V04.81 FLU SHOT 06/25/2013 SOFIA JOB ANALYST, LASHAY S V04.81 FLU SHOT 06/25/2013 SOFIA JOB ANALYST, LASHAY S V04.81 FLU SHOT 06/25/2013 SOFIA JOB ANALYST, LASHAY S V04.81 FLU SHOT 06/25/2013 SOFIA JOB ANALYST, LASHAY S V04.81 FLU SHOT 06/25/2013 HALEY DPM, KRYSTLE V04.81 FLU SHOT 06/25/2013 BEATRIZ MANCERA APRNNYA L V04.81 FLU SHOT 06/25/2013 SOFIA CHILDS LASHAY S V04.81 FLU SHOT 07/25/2013 LOPEZ DO, PARADISE K 786.2 COUGH 07/25/2013 LOPEZ DO, PARADISE K 786.2 COUGH 07/25/2013 SOFIA CHILDS, LASHAY S 786.2 COUGH 07/25/2013 SOFIA CHILDS, LASHAY S 786.2 COUGH 07/25/2013 ESVIN LINDA MD 786.2 COUGH 07/25/2013 SOFIA JOB ANALYST, LASHAY S 786.2 COUGH 07/25/2013 SOFIA JOB ANALYST, LASHAY S 786.2 COUGH 07/25/2013 SOFIA OLMOSN, LASHAY S 786.2 COUGH 07/25/2013 SOFIA OLMOSN, LASHAY S 786.2 COUGH 07/25/2013 SOFIA JOB ANALYST, LASHAY S 786.2 COUGH 07/25/2013 SOFIA JOB ANALYST, LASHAY S 786.2 COUGH 07/25/2013 HALEY DPM, KRYSTLE 786.2 COUGH 07/25/2013 MADL JOB ANALYST, RAJIV L 786.2 COUGH 07/25/2013 SOFIA JOB ANALYST, LASHAY S 786.2 COUGH 08/23/2013 LOPEZ DO, PARADISE K 338.11 PAIN - ACUTE PAIN DUE TO TRAUMA 08/23/2013 LOPEZ DO, PARADISE K 733.92 CHONDROMALACIA 08/23/2013 SOFIA JOB ANALYST, LASHAY S 338.11 PAIN - ACUTE PAIN DUE TO TRAUMA 08/23/2013 SOFIA JOB ANALYST, LASHAY S 733.92 CHONDROMALACIA 08/23/2013 SOFIA JOB ANALYST, LASHAY S 338.11 PAIN - ACUTE PAIN DUE TO TRAUMA 08/23/2013 SOFIA JOB ANALYST, LASHAY S 733.92 CHONDROMALACIA 08/23/2013 ESVIN LINDA MD 338.11 PAIN - ACUTE PAIN DUE TO TRAUMA 08/23/2013 ESVIN LINDA MD 733.92 CHONDROMALACIA 08/23/2013 SOFIA JOB ANALYST, LASHAY S 338.11 PAIN - ACUTE PAIN DUE TO TRAUMA 08/23/2013 SOFIA JOB ANALYST, LASHAY S 733.92 CHONDROMALACIA 08/23/2013 SOFIA JOB ANALYST, LASHAY S 338.11 PAIN - ACUTE PAIN DUE TO TRAUMA 08/23/2013 SOFIA JOB ANALYST, LASHAY S 733.92 CHONDROMALACIA 08/23/2013 SOFIA JOB ANALYST, LASHAY S 338.11 PAIN - ACUTE PAIN DUE TO TRAUMA 08/23/2013 SOFIA JOB ANALYST, LASHAY S 733.92 CHONDROMALACIA 08/23/2013 SOFIA JOB ANALYST, LASHAY S 338.11 PAIN - ACUTE PAIN DUE TO TRAUMA 08/23/2013 SOFIA JOB ANALYST, LASHAY S 733.92 CHONDROMALACIA 08/23/2013 SOFIA JOB ANALYST, LASHAY S 338.11 PAIN - ACUTE PAIN DUE TO TRAUMA 08/23/2013 SOFIA JOB ANALYST, LASHAY S 733.92 CHONDROMALACIA 08/23/2013 ARNAV BLACK APRNNDA S 338.11 PAIN - ACUTE PAIN DUE TO TRAUMA 08/23/2013 ARNAV BLACK APRNNDA S 733.92 CHONDROMALACIA 08/23/2013 HALEY DPM, KRYSTLE 338.11 PAIN - ACUTE PAIN DUE TO TRAUMA 08/23/2013 HALEY DPM, KRYSTLE 733.92 CHONDROMALACIA 08/23/2013 MADL JOB ANALYST, RAJIV L 338.11 PAIN - ACUTE PAIN DUE TO TRAUMA 08/23/2013 MADL JOB ANALYST, RAJIV L 733.92 CHONDROMALACIA 08/23/2013 SOFIA CHILDS LASHAY S 338.11 PAIN - ACUTE PAIN DUE TO TRAUMA 08/23/2013 ARNAV BLACK APRNNDA S 733.92 CHONDROMALACIA 10/16/2013 ARNAV BLACK APRNNDA S 389.9 HEARING LOSS UNSPEC 10/16/2013 ARNAV BLACK APRNNDA S 729.5 PAIN- HAND 10/16/2013 ARNAV BLACK APRNNDA S 389.9 HEARING LOSS UNSPEC 10/16/2013 ARNAV BLACK APRNNDA S 729.5 PAIN- HAND 10/16/2013 ESVIN LINDA MD 389.9 HEARING LOSS UNSPEC 10/16/2013 ESVIN LINDA MD 729.5 PAIN- HAND 10/16/2013 ARNAV BLACK APRNNDA S 389.9 HEARING LOSS UNSPEC 10/16/2013 ARNAV BLACK APRNNDA S 729.5 PAIN- HAND 10/16/2013 ARNAV BLACK APRNNDA S 389.9 HEARING LOSS UNSPEC 10/16/2013 SOFIA CHILDS LASHAY S 729.5 PAIN- HAND 10/16/2013 SOFIA CHILDS LASHAY S 389.9 HEARING LOSS UNSPEC 10/16/2013 ARNAV BLACK APRNNDA S 729.5 PAIN- HAND 10/16/2013 SOFIA CHILDS LASHAY S 389.9 HEARING LOSS UNSPEC 10/16/2013 ARNAV BLACK APRNNDA S 729.5 PAIN- HAND 10/16/2013 ARNAV BLACK APRNNDA S 389.9 HEARING LOSS UNSPEC 10/16/2013 SOFIA JOB ANALYST, LASHAY S 729.5 PAIN- HAND 10/16/2013 SOFIA JOB ANALYST, LASHAY S 389.9 HEARING LOSS UNSPEC 10/16/2013 SOFIA JOB ANALYST, LASHAY S 729.5 PAIN- HAND 10/16/2013 HALEY DPM, KRYSTLE 389.9 HEARING LOSS UNSPEC 10/16/2013 HALEY DPM, KRYSTLE 729.5 PAIN- HAND 10/16/2013 MADL JOB ANALYST, RAJIV L 389.9 HEARING LOSS UNSPEC 10/16/2013 MADL JOB ANALYST, RAJIV L 729.5 PAIN- HAND 10/16/2013 SOFIA JOB ANALYST, LASHAY S 389.9 HEARING LOSS UNSPEC 10/16/2013 SOFIA JOB ANALYST, LASHAY S 729.5 PAIN- HAND 02/22/2014 ALEXEI WELLER, ESVIN 728.85 SPASM OF MUSCLE 02/22/2014 SOFIA JOB ANALYST, LASHAY S 728.85 SPASM OF MUSCLE 02/22/2014 SOFIA JOB ANALYST, LASHAY S 728.85 SPASM OF MUSCLE 02/22/2014 SOFIA JOB ANALYST, LASHAY S 728.85 SPASM OF MUSCLE 02/22/2014 SOFIA JOB ANALYST, LASHAY S 728.85 SPASM OF MUSCLE 02/22/2014 SOFIA JOB ANALYST, LASHAY S 728.85 SPASM OF MUSCLE 02/22/2014 SOFIA JOB ANALYST, LASHAY S 728.85 SPASM OF MUSCLE 02/22/2014 HALEY DPM, KRYSTLE 728.85 SPASM OF MUSCLE 02/22/2014 MADL JOB ANALYST, RAJIV L 728.85 SPASM OF MUSCLE 02/22/2014 SOFIA JOB ANALYST, LASHAY S 728.85 SPASM OF MUSCLE 03/26/2014 SOFIA JOB ANALYST, LASHAY S 719.47 PAIN- FOOT 03/26/2014 SOFIA JOB ANALYST, LASHAY S 787.91 DIARRHEA 03/26/2014 SOFIA JOB ANALYST, LASHAY S 789.04 ABDOMINAL PAIN LEFT LOWER QUADRANT 03/26/2014 SOFIA JOB ANALYST, LASHAY S 719.47 PAIN- FOOT 03/26/2014 SOFIA CHILDS, LASHAY S 787.91 DIARRHEA 03/26/2014 SOFIA JOB ANALYST, LASHAY S 789.04 ABDOMINAL PAIN LEFT LOWER QUADRANT 03/26/2014 SOFIA JOB ANALYST, LASHAY S 719.47 PAIN- FOOT 03/26/2014 SOFIA JOB ANALYST, LASHAY S 787.91 DIARRHEA 03/26/2014 SOFIA JOB ANALYST, LASHAY S 789.04 ABDOMINAL PAIN LEFT LOWER QUADRANT 03/26/2014 SOFIA JOB ANALYST, LASHAY S 719.47 PAIN- FOOT 03/26/2014 SOFIA JOB ANALYST, LASHAY S 787.91 DIARRHEA 03/26/2014 SOFIA JOB ANALYST, LASHAY S 789.04 ABDOMINAL PAIN LEFT LOWER QUADRANT 03/26/2014 SOFIA JOB ANALYST, LASHAY S 719.47 PAIN- FOOT 03/26/2014 SOFIA JOB ANALYST, LASHAY S 787.91 DIARRHEA 03/26/2014 SOFIA JOB ANALYST, LASHAY S 789.04 ABDOMINAL PAIN LEFT LOWER QUADRANT 03/26/2014 SOFIA JOB ANALYST, LASHAY S 719.47 PAIN- FOOT 03/26/2014 SOFIA JOB ANALYST, LASHAY S 787.91 DIARRHEA 03/26/2014 SOFIA JOB ANALYST, LASHAY S 789.04 ABDOMINAL PAIN LEFT LOWER QUADRANT 03/26/2014 HALEY DPM, KRYSTLE 719.47 PAIN- FOOT 03/26/2014 HALEY DPM, KRYSTLE 787.91 DIARRHEA 03/26/2014 HALEY DPM, KRYSTLE 789.04 ABDOMINAL PAIN LEFT LOWER QUADRANT 03/26/2014 MADL JOB ANALYST, RAJVI L 719.47 PAIN- FOOT 03/26/2014 MADL JOB ANALYST, RAJIV L 787.91 DIARRHEA 03/26/2014 MADL JOB ANALYST, RAJIV L 789.04 ABDOMINAL PAIN LEFT LOWER QUADRANT 03/26/2014 SOFIA JOB ANALYST, LASHAY S 719.47 PAIN- FOOT 03/26/2014 SOFIA JOB ANALYST, LASHAY S 787.91 DIARRHEA 03/26/2014 SOFIA JOB ANALYST, LASHAY S 789.04 ABDOMINAL PAIN LEFT LOWER QUADRANT 04/30/2014 SOFIA JOB ANALYST, LASHAY S 719.40 ARTHRAIGIA UNSPEC 04/30/2014 SOFIA JOB ANALYST, LASHAY S 719.40 ARTHRAIGIA UNSPEC 04/30/2014 SOFIA JOB ANALYST, LASHAY S 719.40 ARTHRAIGIA UNSPEC 04/30/2014 SOFIA JOB ANALYST, LASHAY S 719.40 ARTHRAIGIA UNSPEC 04/30/2014 SOFIA JOB ANALYST, LASHAY S 719.40 ARTHRAIGIA UNSPEC 04/30/2014 HALEY DPM, KRYSTLE 719.40 ARTHRAIGIA UNSPEC 04/30/2014 MADL JOB ANALYST, RAJIV L 719.40 ARTHRAIGIA UNSPEC 04/30/2014 SOFIA JOB ANALYST, LASHAY S 719.40 ARTHRAIGIA UNSPEC 06/26/2014 CAMILA WELLER, DANGELO A Ot 723.1 06/26/2014 CAMILA WELLER, DANGELO A Ot 847.0 06/26/2014 CAMILA WELLER, DANGELO A Ot 959.01 06/26/2014 CAMILA WELLER, DANGELO A Ot E000.8 06/26/2014 CAMILA WELLER, DANGELO A Ot E812.0 07/04/2014 SOFIA JOB ANALYST, LASHAY S 289.3 LYMPHADENITIS (PRIMARY) 07/04/2014 SOFIA JOB ANALYST, LASHAY S 339.20 POSTTRAUMATIC HEADACHE UNSPECIFIED 07/04/2014 SOFIA JOB ANALYST, LASHAY S V03.82 PPV23 (PNEUMOVAX) DX 07/04/2014 SOFIA JOB ANALYST, LASHAY S V06.1 TDAP DX 07/04/2014 SOFIA JOB ANALYST, LASHAY S 289.3 LYMPHADENITIS (PRIMARY) 07/04/2014 SOFIA JOB ANALYST, LASHAY S 339.20 POSTTRAUMATIC HEADACHE UNSPECIFIED 07/04/2014 SOFIA JOB ANALYST, LASHAY S V03.82 PPV23 (PNEUMOVAX) DX 07/04/2014 SOFIA JOB ANALYST, LASHAY S V06.1 TDAP DX 07/04/2014 SOFIA JOB ANALYST, LASHAY S 289.3 LYMPHADENITIS (PRIMARY) 07/04/2014 SOFIA JOB ANALYST, LASHAY S 339.20 POSTTRAUMATIC HEADACHE UNSPECIFIED 07/04/2014 SOFIA JOB ANALYST, LASHAY S V03.82 PPV23 (PNEUMOVAX) DX 07/04/2014 SOFIA CHILDS, LASHAY S V06.1 TDAP DX 07/04/2014 HALEY DPM, KRYSTLE 289.3 LYMPHADENITIS (PRIMARY) 07/04/2014 HALEY DPM, KRYSTLE 339.20 POSTTRAUMATIC HEADACHE UNSPECIFIED 07/04/2014 HALEY DPM, KRYSTLE V03.82 PPV23 (PNEUMOVAX) DX 07/04/2014 HALEY DPM, KRYSTLE V06.1 TDAP DX 07/04/2014 MADL JOB ANALYST, RAJIV L 289.3 LYMPHADENITIS (PRIMARY) 07/04/2014 MADL JOB ANALYST, RAJIV L 339.20 POSTTRAUMATIC HEADACHE UNSPECIFIED 07/04/2014 MADL JOB ANALYST, RAJIV L V03.82 PPV23 (PNEUMOVAX) DX 07/04/2014 MADL JOB ANALYST, RAJIV L V06.1 TDAP DX 07/04/2014 BOB BLACK APRNA S 289.3 LYMPHADENITIS (PRIMARY) 07/04/2014 ARNAV BLACK APRNNDA S 339.20 POSTTRAUMATIC HEADACHE UNSPECIFIED 07/04/2014 ARNAV BLACK APRNNDA S V03.82 PPV23 (PNEUMOVAX) DX 07/04/2014 ARNAV BLACK APRNNDA S V06.1 TDAP DX 07/30/2014 BOB BLACK APRNA S 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 07/30/2014 ARNAV BLACK APRNNDA S 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 07/30/2014 HALEY DPM, KRYSTLE 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 07/30/2014 MAGDALENOL JOB ANALYST, RAJIV L 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 07/30/2014 ARNAV BLACK APRNNDA S 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 07/31/2014 LASHAY BLACK TUBE MOUNTER Ot 289.3 08/13/2014 LASHAY BLACK TUBE MOUNTER Ot 782.2 09/06/2014 HALEY DPM, KRYSTLE 727.42 GANGLION OF TENDON SHEATH 09/06/2014 MADL JOB ANALYST, RAJIV L 727.42 GANGLION OF TENDON SHEATH 09/06/2014 LASHAY BLACK APRN S 727.42 GANGLION OF TENDON SHEATH 10/04/2014 MAGDALENOL JOB ANALYSTRAJIV Almaguer L 465.9 UPPER RESPIRATORY INFECTION 10/04/2014 MADL JOB ANALYST, RAJIV L 719.41 PAIN IN JOINT INVOLVING SHOULDER REGION 10/04/2014 LASHAY BLACK APRN S 465.9 UPPER RESPIRATORY INFECTION 10/04/2014 LASHAY BLACK APRN S 719.41 PAIN IN JOINT INVOLVING SHOULDER REGION 10/31/2014 LASHAY BLACK TUBE MOUNTER Ot 289.3 10/31/2014 LASHAY BLACKP Ot 339.20 10/31/2014 LASHAY BLACKP Ot 782.2 12/09/2014 LASHAY BLACK APRN S 723.1 CERVICALGIA 12/09/2014 LASHAY BLACK APRN S 729.2 NEURALGIA NEURITIS AND RADICULITIS UNSPECIFIED 12/17/2014 Ot 573.8 12/17/2014 Ot 574.20 12/17/2014 Ot 530.81 12/17/2014 Ot 553.3 12/17/2014 Ot 569.3 12/17/2014 Ot 574.20 12/17/2014 Ot 709.9 12/17/2014 Ot V72.63 12/17/2014 Ot V72.81 12/17/2014 Ot V74.8 12/17/2014 LASHAY BLACKP Ot 289.3 12/19/2014 LASHAY BLACKP Ot 723.1 12/19/2014 LASHAY BLACKP Ot 729.2 12/19/2014 LASHAY BLACKP Ot V57.1 12/23/2014 LASHAY BLACKP Ot 723.1 12/23/2014 LASHAY BLACKP Ot 729.2 12/23/2014 LASHAY BLACKP Ot V57.1 12/31/2014 Ot 573.8 12/31/2014 Ot 574.20 12/31/2014 Ot 530.81 12/31/2014 Ot 553.3 12/31/2014 Ot 569.3 12/31/2014 Ot 574.20 12/31/2014 Ot 709.9 12/31/2014 Ot V72.63 12/31/2014 Ot V72.81 12/31/2014 Ot V74.8 12/31/2014 LASHAY BLACKP Ot 289.3 12/31/2014 LASHAY BLACK TUBE MOUNTER Ot 723.1 12/31/2014 LASHAY BLACKP Ot 729.2 12/31/2014 LASHAY BLACK TUBE MOUNTER Ot V57.1 12/31/2014 LASHAY BLACKP Ot 723.0 12/31/2014 LASHAY BLACKP Ot 723.1 12/31/2014 LASHAY BLACKP Ot 729.2 12/31/2014 LASHAY BLACKP Ot V57.1 12/31/2014 LASHAY BLACKP Ot 723.1 12/31/2014 LASHAY BLACKP Ot 729.2 12/31/2014 LASHAY BLACK TUBE MOUNTER Ot V57.1 02/14/2015 LASHAY BLACKP Ot 723.1 CERVICALGIA 02/14/2015 LASHAY BLACKP Ot 729.2 NEURALGIA/NEURITIS NOS 02/14/2015 LASHAY BLACKP Ot V57.1 PHYSICAL THERAPY NEC 11/18/2015 Ot 573.8 11/18/2015 Ot 574.20 11/18/2015 Ot 530.81 11/18/2015 Ot 553.3 11/18/2015 Ot 569.3 11/18/2015 Ot 574.20 11/18/2015 Ot 709.9 11/18/2015 Ot V72.63 11/18/2015 Ot V72.81 11/18/2015 Ot V74.8 11/18/2015 LASHAY BLACKP Ot 289.3 11/18/2015 LASHAY BLACKP Ot 723.0 11/18/2015 LASHAY BLACKP Ot M54.2 11/19/2015 Ot 573.8 11/19/2015 Ot 574.20 11/19/2015 Ot 530.81 11/19/2015 Ot 553.3 11/19/2015 Ot 569.3 11/19/2015 Ot 574.20 11/19/2015 Ot 709.9 11/19/2015 Ot V72.63 11/19/2015 Ot V72.81 11/19/2015 Ot V74.8 11/19/2015 SOFIALASHAY CRUZ TUBE MOUNTER Ot 289.3 11/19/2015 SOFIA LASHAY TUBE MOUNTER Ot 723.0 11/19/2015 SOFIAARNAVLASHAY TUBE MOUNTER Ot M54.2 11/20/2015 ERIC LOPEZ JOB ANALYST Ot I10 ESSENTIAL (PRIMARY) HYPERTENSION 11/20/2015 ERIC LOPEZ JOB ANALYST Ot R51 HEADACHE 11/21/2015 JERSON MORGAN MD Ot I10 ESSENTIAL (PRIMARY) HYPERTENSION 11/21/2015 JERSON MORGAN MD Ot R10.84 GENERALIZED ABDOMINAL PAIN 11/21/2015 JERSON MORGAN MD Ot R11.2 NAUSEA WITH VOMITING, UNSPECIFIED 11/21/2015 JERSON MORGAN MD Ot R51 HEADACHE 11/21/2015 JERSON MORGAN MD Ot Z79.899 OTHER MOCK UP BUILDER (CURRENT) DRUG THERAPY 11/21/2015 JERSON MORGAN MD, Ot Z87.891 PERSONAL HISTORY OF NICOTINE DEPENDENCE 11/21/2015 JERSON MORGAN MD Ot I10 11/21/2015 JERSON MORGAN MD Ot R10.84 11/21/2015 JERSON MORGAN MD Ot R11.2 11/21/2015 JERSON MORGAN MD Ot R51 11/21/2015 JERSON MORGAN MD Ot Z79.899 11/21/2015 JERSON MORGAN MD Ot Z87.891 02/02/2016 MORELIA HERNANDEZ DO Ot G89.29 OTHER CHRONIC PAIN 02/02/2016 MORELIA HERNANDEZ DO Ot K57.90 DVRTCLOS OF INTEST, PART UNSP, W/O PERF 02/02/2016 MORELIA HERNANDEZ DO Ot M54.5 LOW BACK PAIN 02/02/2016 MORELIA HERNANDEZ DO Ot R11.2 NAUSEA WITH VOMITING, UNSPECIFIED 02/02/2016 DAVID DO, OMRELIA K Ot R19.7 DIARRHEA, UNSPECIFIED 02/02/2016 DAVID DO, MORELIA K Ot Z79.891 MOCK UP BUILDER (CURRENT) USE OF OPIATE ANALGE 02/03/2016 DAVID DO, MORELIA K Ot G89.29 OTHER CHRONIC PAIN 02/03/2016 DAVID DO, MORELIA K Ot K57.90 DVRTCLOS OF INTEST, PART UNSP, W/O PERF 02/03/2016 DAVID DO, MORELIA K Ot M54.5 LOW BACK PAIN 02/03/2016 DAVID DO, MORELIA K Ot R11.2 NAUSEA WITH VOMITING, UNSPECIFIED 02/03/2016 DAVID DO, MORELIA K Ot R19.7 DIARRHEA, UNSPECIFIED 02/03/2016 DAVID DO, MORELIA K Ot Z79.891 ALF (CURRENT) USE OF OPIATE ANALGE 02/08/2016 DAVID DO, MORELIA K Ot G89.29 OTHER CHRONIC PAIN 02/08/2016 DAVID DO, MORELIA K Ot K57.90 DVRTCLOS OF INTEST, PART UNSP, W/O PERF 02/08/2016 DAVID DO, MORELIA K Ot M54.5 LOW BACK PAIN 02/08/2016 DAVID DO, MORELIA K Ot R11.2 NAUSEA WITH VOMITING, UNSPECIFIED 02/08/2016 DAVID DO, MORELIA K Ot R19.7 DIARRHEA, UNSPECIFIED 02/08/2016 DAVID DO, MORELIA K Ot Z79.891 MOCK UP BUILDER (CURRENT) USE OF OPIATE ANALGE 02/28/2016 DAVID DO, MORELIA K Ot G89.29 OTHER CHRONIC PAIN 02/28/2016 DAVID DO, MORELIA K Ot K57.90 DVRTCLOS OF INTEST, PART UNSP, W/O PERF 02/28/2016 DAVID DO, MORELIA K Ot M54.5 LOW BACK PAIN 02/28/2016 DAVID DO, MORELIA K Ot R11.2 NAUSEA WITH VOMITING, UNSPECIFIED 02/28/2016 DAVID DO, MORELIA K Ot R19.7 DIARRHEA, UNSPECIFIED 02/28/2016 DAVID DO, MORELIA K Ot Z79.891 ALF (CURRENT) USE OF OPIATE ANALGE 03/08/2016 Ot 573.8 LIVER DISORDERS NEC 03/08/2016 Ot 574.20 CHOLELITHIASIS NOS 03/08/2016 Ot 530.81 ESOPHAGEAL REFLUX 03/08/2016 Ot 553.3 DIAPHRAGMATIC HERNIA 03/08/2016 Ot 569.3 RECTAL ANAL HEMORRHAGE 03/08/2016 Ot 574.20 CHOLELITHIASIS NOS 03/08/2016 Ot 709.9 SKIN DISORDER NOS 03/08/2016 Ot V72.63 PRE-PROCEDURAL LABORATORY EXAMINATION 03/08/2016 Ot V72.81 [id number]-[id number] CARDIOVASCULAR 03/08/2016 Ot V74.8 SCREEN-BACTERIAL DIS NEC 03/08/2016 LASHAY BLACK Ot 289.3 LYMPHADENITIS NOS 03/08/2016 LASHAY BLACK Ot 723.0 CERVICAL SPINAL STENOSIS 03/08/2016 LASHAY BLACK Ot M54.2 CERVICALGIA 03/08/2016 MIRIAN WELLER FACC, ALI FACP CCDS Ot R07.9 CHEST PAIN, UNSPECIFIED 03/08/2016 Ot R07.9 CHEST PAIN, UNSPECIFIED 03/08/2016 MIRIAN WELLER FACC, ALI FACP CCDS Ot R07.9 CHEST PAIN, UNSPECIFIED 03/10/2016 Ot 573.8 LIVER DISORDERS NEC 03/10/2016 Ot 574.20 CHOLELITHIASIS NOS 03/10/2016 Ot 530.81 ESOPHAGEAL REFLUX 03/10/2016 Ot 553.3 DIAPHRAGMATIC HERNIA 03/10/2016 Ot 569.3 RECTAL ANAL HEMORRHAGE 03/10/2016 Ot 574.20 CHOLELITHIASIS NOS 03/10/2016 Ot 709.9 SKIN DISORDER NOS 03/10/2016 Ot V72.63 PRE-PROCEDURAL LABORATORY EXAMINATION 03/10/2016 Ot V72.81 LSOU-[id number]-KRDOTEMZA CARDIOVASCULAR 03/10/2016 Ot V74.8 SCREEN-BACTERIAL DIS NEC 03/10/2016 LASHAY BLACK Ot 289.3 LYMPHADENITIS NOS 03/10/2016 LASHAY BLACKP Ot 723.0 CERVICAL SPINAL STENOSIS 03/10/2016 LASHAY BLACKP Ot M54.2 CERVICALGIA 03/10/2016 MIRIAN WELLER FACC, ALI FACP CCDS Ot R07.9 CHEST PAIN, UNSPECIFIED 03/10/2016 Ot R07.9 CHEST PAIN, UNSPECIFIED 03/10/2016 JACKSON DO, KODY L Ot E86.0 DEHYDRATION 03/10/2016 JACKSON DO, KODY L Ot T67.5XXA HEAT EXHAUSTION, UNSPECIFIED, INITIAL EN 03/16/2016 LASHAY BLACK TUBE MOUNTER Ot M25.50 PAIN IN UNSPECIFIED JOINT 03/16/2016 LASHAY BLACK TUBE MOUNTER Ot R50.9 FEVER, UNSPECIFIED 05/25/2016 Ot R07.9 CHEST PAIN, UNSPECIFIED 05/25/2016 LASHAY BLACK TUBE MOUNTER Ot M25.50 PAIN IN UNSPECIFIED JOINT 05/25/2016 LASHAY BLACK TUBE MOUNTER Ot R50.9 FEVER, UNSPECIFIED 06/09/2016 LASHAY BLACK TUBE MOUNTER Ot 289.3 LYMPHADENITIS NOS 06/09/2016 LASHAY BLACK TUBE MOUNTER Ot 723.0 CERVICAL SPINAL STENOSIS 06/09/2016 LASHAY BLACK TUBE MOUNTER Ot M54.2 CERVICALGIA 06/09/2016 MIRIAN WELLER FAC, HAZEL BENNETT CCDS Ot R07.9 CHEST PAIN, UNSPECIFIED 06/09/2016 Ot R07.9 CHEST PAIN, UNSPECIFIED 06/09/2016 LASHAY BLACK TUBE MOUNTER Ot M25.50 PAIN IN UNSPECIFIED JOINT 06/09/2016 LASHAY BLACK TUBE MOUNTER Ot R50.9 FEVER, UNSPECIFIED 06/09/2016 DIMA FOSS APRN Ot G47.33 OBSTRUCTIVE SLEEP APNEA (ADULT) ( PEDIATR 06/14/2016 DIMA FOSS APRN Ot G47.33 OBSTRUCTIVE SLEEP APNEA (ADULT) ( PEDIATR 06/14/2016 DIMA FOSS APRN Ot J45.909 UNSPECIFIED ASTHMA, UNCOMPLICATED 06/14/2016 DIMA FOSS APRN Ot R06.02 SHORTNESS OF BREATH 06/14/2016 DIMA FOSS APRN Ot G47.33 OBSTRUCTIVE SLEEP APNEA (ADULT) ( PEDIATR 09/02/2016 ESTEVAN KINGSLEY DO Ot K21.9 GASTRO-ESOPHAGEAL REFLUX DISEASE WITHOUT 09/02/2016 ESTEVAN KINGSLEY DO Ot R19.7 DIARRHEA, UNSPECIFIED 09/02/2016 ESTEVAN KINGSLEY DO Ot Z01.818 ENCOUNTER FOR OTHER PREPROCEDURAL EXAMIN 09/03/2016 KINGSLEY DO, ESTEVAN D Ot K21.9 GASTRO-ESOPHAGEAL REFLUX DISEASE WITHOUT 09/03/2016 KINGSLEY DO, ESTEVAN D Ot R19.7 DIARRHEA, UNSPECIFIED 09/03/2016 KINGSLEY ARNAV [place]ENN[place] D Ot Z01.818 ENCOUNTER FOR OTHER PREPROCEDURAL EXAMIN 09/07/2016 DIMA FOSS APRN Ot G47.33 OBSTRUCTIVE SLEEP APNEA (ADULT) ( PEDIATR 09/07/2016 DIMA FOSS JOB ANALYST Ot J45.909 UNSPECIFIED ASTHMA, UNCOMPLICATED 09/07/2016 DIMA FOSS JOB ANALYST Ot R06.02 SHORTNESS OF BREATH 09/07/2016 KINGSLEY DO ESTEVAN D Ot D12.4 BENIGN NEOPLASM OF DESCENDING COLON 09/07/2016 KINGSLEY DO ESTEVAN D Ot K25.7 CHRONIC GASTRIC ULCER WITHOUT HEMORRHAGE 09/07/2016 KINGSLEY DO ESTEVAN D Ot K29.70 GASTRITIS, UNSPECIFIED, WITHOUT BLEEDING 09/07/2016 KINGSLEY DO ESTEVAN D Ot K44.9 DIAPHRAGMATIC HERNIA WITHOUT OBSTRUCTION 09/07/2016 KINGSLEY DO ESTEVAN D Ot K57.30 DVRTCLOS OF LG INT W/O PERFORATION OR AB 09/07/2016 KINGSLEY DO ESTEVAN D Ot R19.7 DIARRHEA, UNSPECIFIED 09/09/2016 KINGSLEY DO ESTEVAN D Ot D12.4 BENIGN NEOPLASM OF DESCENDING COLON 09/09/2016 KINGSLEY DO ESTEVAN D Ot K25.7 CHRONIC GASTRIC ULCER WITHOUT HEMORRHAGE 09/09/2016 KINGSLEY DO ESTEVAN D Ot K29.70 GASTRITIS, UNSPECIFIED, WITHOUT BLEEDING 09/09/2016 KINSGLEY DO ESTEVAN D Ot K44.9 DIAPHRAGMATIC HERNIA WITHOUT OBSTRUCTION 09/09/2016 KINGSLEY DO ESTEVAN D Ot K57.30 DVRTCLOS OF LG INT W/O PERFORATION OR AB 09/09/2016 KINGSLEY DO ESTEVAN D Ot R19.7 DIARRHEA, UNSPECIFIED 10/04/2016 DIMA FOSS APRN Ot G47.33 OBSTRUCTIVE SLEEP APNEA (ADULT) ( PEDIATR 10/04/2016 DIMA FOSS APRN Ot J45.909 UNSPECIFIED ASTHMA, UNCOMPLICATED 10/04/2016 DIMA FOSS APRN Ot R06.02 SHORTNESS OF BREATH 02/02/2017 SOFIA, LASHAY TUBE MOUNTER Ot 289.3 LYMPHADENITIS NOS 02/02/2017 LASHAY BLACK TUBE MOUNTER Ot 723.0 CERVICAL SPINAL STENOSIS 02/02/2017 BOB BLACKA TUBE MOUNTER Ot M54.2 CERVICALGIA 02/02/2017 MIRIAN HA, ALI [facility] CCDS Ot R07.9 CHEST PAIN, UNSPECIFIED 02/02/2017 Ot R07.9 CHEST PAIN, UNSPECIFIED 02/02/2017 LASHAY BLACK TUBE MOUNTER Ot M25.50 PAIN IN UNSPECIFIED JOINT 02/02/2017 LASHAY BLACK TUBE MOUNTER Ot R50.9 FEVER, UNSPECIFIED 02/02/2017 DIMA FOSS APRN Ot G47.33 OBSTRUCTIVE SLEEP APNEA (ADULT) ( PEDIATR 02/02/2017 DIMA FOSS APRN Ot J45.909 UNSPECIFIED ASTHMA, UNCOMPLICATED 02/02/2017 DIMA FOSS APRN Ot R06.02 SHORTNESS OF BREATH 02/18/2017 LASHAY BLACKP Ot 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 02/18/2017 LASHAY BLACK TUBE MOUNTER Ot R22.42 LOCALIZED SWELLING, MASS AND LUMP, LEFT 02/28/2017 LASHAY BLACK TUBE MOUNTER Ot 289.3 LYMPHADENITIS NOS 02/28/2017 LASHAY BLACK TUBE MOUNTER Ot 723.0 CERVICAL SPINAL STENOSIS 02/28/2017 LASHAY BLACK TUBE MOUNTER Ot M54.2 CERVICALGIA 02/28/2017 MIRIAN WELLER FACC, ALI [facility] CCDS Ot R07.9 CHEST PAIN, UNSPECIFIED 02/28/2017 Ot R07.9 CHEST PAIN, UNSPECIFIED 02/28/2017 LASHAY BLACK TUBE MOUNTER Ot M25.50 PAIN IN UNSPECIFIED JOINT 02/28/2017 LASHAY BLACK TUBE MOUNTER Ot R50.9 FEVER, UNSPECIFIED 02/28/2017 DIMA FOSS APRN Ot G47.33 OBSTRUCTIVE SLEEP APNEA (ADULT) ( PEDIATR 02/28/2017 DIMA FOSS APRN Ot J45.909 UNSPECIFIED ASTHMA, UNCOMPLICATED 02/28/2017 DIMA FOSS APRN Ot R06.02 SHORTNESS OF BREATH 02/28/2017 LASHAY BLACK TUBE MOUNTER Ot 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 02/28/2017 LASHAY BLACK [facility] Ot R22.42 LOCALIZED SWELLING, MASS AND LUMP, LEFT Procedures Code Description Performed By Performed On General S Jonah Navarrete 07/14/2012 60274 ROUTINE VENIPUNCTURE 07/21/2012 94179 CMP 07/21/2012 96372 LIPID PANEL 07/21 2291969 GFR CALC (RESULT ONLY) 07/21/2012 Podiatry Krystle Man 08/07/2012 66075 URINE DRUG SCREEN (IN-HOUSE) 10/11/2012 58857 XRAY KNEE RIGHT 3 VIEWS 06/25/2013 80191 URINE DRUG SCREEN (IN-HOUSE) 06/25/2013 26561 JOINT INJECTION- LARGE JOINT (SPECIFY MEDCIN DESCRIPTION) 06/30/2013 ORTHOPEDI EDUARDO GOMES 07/25/2013 44601 XRAY RIBS LEFT UNILATERAL 2 OR MORE VIEWS 08/23/2013 71816 XRAY HAND RIGHT MIN 3 VIEWS 10/16/2013 22746 ROUTINE VENIPUNCTURE 01/09/2014 45514 CBC 01/09/2014 2242411 GFR CALC (RESULT ONLY) 01/09/2014 82613 CMP 01/09/2014 74694 LIPID PANEL 01/09 67772 PSA TOTAL 2013 36021 TSH 01/09/2014 509060 [employer] DRUG SCREEN 01/11/2014 02786 ROUTINE VENIPUNCTURE 03/26/2014 71066 UA W/ CULTURE IF INDICATED 03/26/2014 69450 CBC 03/26/2014 62969 ROUTINE VENIPUNCTURE 04/30/2014 60739 SED/ESR RATE (IN HOUSE) 04/30/2014 76038 URIC ACID 2013 76229 CRP 04/30/2014 70127 RA FACTOR 2013 40867 ASO 05/01/2014 ANAANA TONY ANALYZER (SCREEN) 05/01/2014 073680 [employer] DRUG SCREEN 05/17/2014 53080 ROUTINE VENIPUNCTURE 07/04/2014 90993 CBC 07/05/2014 80225 US HEAD (SOFT TISSUE) ULTRASOUND, HEAD 07/10/2014 52791 MRI SOFT TISSUE NECK, W AND W/O CONTRAST 07/24/2014 50151 XRAY FOOT LEFT COMP MIN 3 VIEWS 07/30/2014 497922 [employer] DRUG SCREEN 08/13/2014 00933 ASPIRATE/INJ GANGLION CYST 09/06/2014 03191 XRAY SHOULDER RIGHT COMP 2 VIEWS 10/04/2014 05433 INFLUENZA A & B (IN-HOUSE) 10/04/2014 02089 EMG, ONE LIMB 07/2015 Neurology Ronda Jamaa 11/27/2014 40006 MRI SPINE (CERVICAL) W/O CONTRAST 12/17/2014 Results Test Result Range Methicillin resistant Staphylococcus aureus (MRSA) screening culture - 08:07 Methicillin resistant Staphylococcus aureus (MRSA) screening culture NEG NRG Encounters ACCT No. Visit Date/Time Discharge Status Pt. Type Provider Facility Loc./Unit Complaint [id number] 11/27/2014 00:00:00 11/27/2014 23: 59:59 CLS Outpatient LASHAY BLACK APRN [id number] 10/04/2014 08:27:00 10/04/2014 23: 59:59 CLS Outpatient FIORDALIZA OLMOSTripp RAJIV Kuldeep [id number] 09/06/2014 09:42:00 09/06/2014 23: 59:59 CLS Outpatient KRYSTLE MAN DPM [id number] 08/13/2014 09:10:00 08/13/2014 23: 59:59 CLS Outpatient LASHAY BLACK APRN [id number] 07/30/2014 08:38:00 07/30/2014 23: 59:59 CLS Outpatient LASHAY BLACK APRN [id number] 07/04/2014 17:44:00 07/04/2014 23: 59:59 CLS Outpatient LASHAY BLACK APRN [id number] 05/15/2014 09:11:00 05/15/2014 23: 59:59 CLS Outpatient LASHAY BLACK APRN [id number] 04/30/2014 08:35:00 04/30/2014 23: 59:59 CLS Outpatient LASHAY BLACK APRN [id number] 03/26/2014 11:24:00 03/26/2014 23: 59:59 CLS Outpatient LASHAY BLACK APRN [id number] 02/22/2014 13:14:00 02/22/2014 23: 59:59 CLS Outpatient ESVIN ILNDA MD [id number] 01/09/2014 08:29:00 01/09/2014 23: 59:59 CLS Outpatient LASHAY BLACK APRN [id number] 10/16/2013 10:54:00 10/16/2013 23: 59:59 CLS Outpatient LASHAY BLACK APRN Lea [id number] 08/23/2013 15:46:00 08/23/2013 23: 59:59 CLS Outpatient PARADISE LOPEZ DO [id number] 07/25/2013 15:57:00 07/25/2013 23: 59:59 CLS Outpatient PARADISE LOPEZ DO [id number] 06/29/2013 13:19:00 06/29/2013 23: 59:59 CLS Outpatient PARADISE LOPEZ DO [id number] 10/11/2012 14:34:00 10/11/2012 23: 59:59 CLS Outpatient LASHAY BLACK APRN Lea [id number] 08/07/2012 09:13:00 08/07/2012 23: 59:59 CLS Outpatient PARADISE LOPEZ DO [id number] 07/11/2012 15:52:00 07/11/2012 23:59 :59 CLS Outpatient PARADISE LOPEZ DO [id number] 02/23/2013 10:20:00 Document Registration
--- OUTSIDE RECORDS SUMMARY | 2017-03-09 12:10 | XMS REPORT ---
Author Author ALFREDO CISNEROS Organization [employer] Address Unknown Phone Unavailable Care Team Providers Care Audit Machine Operator Name Role Phone ALFREDO CISNEROS CP Unavailable Allergies, Adverse Reactions, Alerts Substance Reaction Event Type Penicillin V Potassium Info Not Available Drug Allergy Cardura XL Info Not Available Drug Allergy Problems Problem Type Condition Code Onset Dates Condition Status Problem Other chronic pain 338.29 Active Problem Postconcussion syndrome 310.2 Active Problem Post-traumatic headache, unspecified 339.20 Active Problem Diarrhea, unspecified type R19.7 Active Problem Cervicalgia M54.2 Active Problem Chronic obstructive pulmonary disease, unspecified COPD type J44.9 Active Problem Cervicalgia 723.1 Active 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 Problem Anxiety F41.9 Active Problem Hypertension I10 Active Assessment Diarrhea, unspecified type R19.7 Active Assessment Chronic obstructive pulmonary disease, unspecified COPD type J44.9 Active Problem Unspecified hearing loss 389.9 Active Problem Asthma, unspecified, with (acute) exacerbation 493.92 Active Medications Medication Code System Code Instructions Start Date End Date Status Dosage Flonase Allergy Relief [facility] [address]-79 50 MCG/ACT Nasally twice a day December 18, 2015 1 spray in each nostril ProAir HFA [facility] [address]-24 108 (90 Base) MCG/ACT Inhalation every 4 hrs Aug 17, 2016 2 puffs as needed Advair Diskus [facility] [address]-60 250 mcg-50 mcg Inhalation May 03, 2014 1 puffs 2 times per day Procedures Procedure Coding System Code Date Office Visit, Est Pt., Level 4 CPT-4 52460 Aug 17, 2016 Vital Signs Date/Time: Aug 17, 2016 Cardiac Monitoring Heart Rate 70 bpm Weight 177 lbs Height 68 in BMI 26.91 Index Blood Pressure Diastolic 88 mmHg Blood Pressure Systolic 130 mmHg Results No Known Results Summary Purpose [employer] Submission
--- OUTSIDE RECORDS SUMMARY | 2017-03-09 12:11 | XMS REPORT ---
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 Problem Postconcussion syndrome 310.2 Active Problem Cervicalgia 723.1 Active Problem Asthma, unspecified, with (acute) exacerbation 493.92 Active Problem Unspecified hearing loss 389.9 Active Problem Post-traumatic headache, unspecified 339.20 Active Problem Other chronic pain 338.29 Active Medications Medication Code System Code Instructions Start Date End Date Status Dosage Hydrocodone-Acetaminophen [facility] [address]-87 7.5-325 MG December 12, 2014 take 1 tablet by Oral route 3 times per day as needed for pain PRN Must last 28 days Results No Known Results Summary Purpose [employer] Submission
--- OUTSIDE RECORDS SUMMARY | 2017-03-09 12:11 | XMS REPORT ---
Author Author LASHAY BLACK Organization [employer] Address Unknown Phone Unavailable Care Team Providers Care Ladle Repairman Name Role Phone LASHAY BLACK CP Unavailable [...] Start Date End Date Status Dosage Hydrocodone-Acetaminophen [facility] [address]-84 7.5-325 MG December 12, 2014 take 1 tablet by Oral route 3 times per day as needed for pain PRN Must last 28 days Results No Known Results Summary Purpose eClinicalWorks Submission
--- OUTSIDE RECORDS SUMMARY | 2017-03-09 12:11 | XMS REPORT ---
Author Author LASHAY BLACK [facility] eClinicalWorks Address Unknown Phone Unavailable Care Team Providers Care Bobbin Drier Name Role Phone LASHAY BLACK Unavailable Allergies, Adverse Reactions, Alerts Substance Reaction Event Type Penicillin V Potassium Info Not Available Drug Allergy Cardura XL Info Not Available Drug Allergy Problems Problem Type Condition Code Onset Dates Condition Status Problem Unspecified hearing loss 389.9 Active Problem Other chronic pain 338.29 Active Problem Asthma, unspecified, with (acute) exacerbation 493.92 Active Assessment Other chronic pain G89.29 Active Assessment Mouth pain K13.79 Active Problem Anxiety F41.9 Active Problem Hypertension I10 Active Problem Cervicalgia M54.2 Active Problem Postconcussion syndrome 310.2 Active Problem Post-traumatic headache, unspecified 339.20 Active Problem Cervicalgia 723.1 Active 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 Medications Medication Code System Code Instructions Start Date End Date Status Dosage Peridex [facility] [address]-65 0.12 % Mouth/Throat swish and spit 2 times a day Jun 15, 2016 Jun 25, 2016 5 ml Flonase Allergy Relief [facility] [address]-25 50 MCG/ACT Nasally twice a day December 18, 2015 1 spray in each nostril Avodart [facility] 09361723599 0.5 MG TAKE ONE TABLET BY MOUTH ONCE DAILY Naproxen [facility] 42394451991 500 MG TAKE ONE TABLET BY MOUTH TWICE DAILY WITH FOOD Advair Diskus [facility] [address]-51 250 mcg-50 mcg Inhalation May 03, 2014 1 puffs 2 times per day Flomax [facility] 99357916345 0.4 MG TAKE ONE CAPSULE BY MOUTH DAILY Propranolol HCl [facility] [address]-42 60 MG Orally Twice a day TAKE ONE TABLET BY MOUTH TWICE DAILY cyclobenzaprine [facility] [address]-20 10 mg November 25, 2014 1 tablet by Oral route 3 times per day PRN Tamsulosin HCl [facility] [address]-57 0.4 MG Orally Once a day 1 capsule 30 minutes after the same meal each day Hydrocodone-Acetaminophen [facility] [address]-92 7.5-325 MG Orally 3 times a day December 12, 2014 1 tablet as needed for pain Amitriptyline HCl [facility] 22727133796 25 MG TAKE ONE TO TWO TABLETS BY MOUTH ONCE DAILY AT BEDTIME. Sertraline HCl [facility] [address]-69 100 MG Orally Once a day 1 tablet Aspirin Adult Low Strength [facility] [address]-23 81 MG Orally Once a day 1 tablet Procedures Procedure Coding System Code Date No Charge CPT-4 87733 Jun 15, 2016 Office Visit, Est Pt., Level 3 CPT-4 29220 Jun 15, 2016 Vital Signs Date/Time: Jun 15, 2016 Cardiac Monitoring Heart Rate 80 bpm Weight 175.0 lbs Height 68 in BMI 26.61 Index Blood Pressure Diastolic 90 mmHg Blood Pressure Systolic 130 mmHg Results Name Result Date Reference Range Unit Abnormality Flag [employer] Summary Purpose eClinicalWorks Submission
--- OUTSIDE RECORDS SUMMARY | 2017-03-09 12:11 | XMS REPORT ---
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 Problem Postconcussion syndrome 310.2 Active Problem Cervicalgia 723.1 Active Problem Asthma, unspecified, with (acute) exacerbation 493.92 Active Problem Unspecified hearing loss 389.9 Active Problem Post-traumatic headache, unspecified 339.20 Active Problem Other chronic pain 338.29 Active Medications No Known Medications Procedures Procedure Coding System Code Date SINGLE IMMUNIZATION ADMIN CPT-4 55091 Jul 03, 2015 FLUARIX QUAD (3 & UP)-GSK-2014 CPT-4 93712 Jul 03, 2015 Results No Known Results Immunizations Vaccine Administration Date FLUARIX QUAD (3 & UP)-GSK-2014Jul 03, 2015 Summary Purpose eClinicalWorks Submission
--- OUTSIDE RECORDS SUMMARY | 2017-03-09 12:11 | XMS REPORT ---
Author Author LASHAY BLACK Organization eClinicalWorks Address Unknown Phone Unavailable Care Team Providers Care Fundraising Assistant Name Role Phone LASHAY BLACK CP Unavailable [...] Instructions Start Date End Date Status Dosage Advair Diskus [facility] [address]-72 250 mcg-50 mcg Inhalation May 03, 2014 1 puffs 2 times per day Avodart [facility] [address]-17 0.5 MG Aug 13, 2014 take 1 capsule (0.5 mg) by oral route once daily Results No Known Results Summary Purpose eClinicalWorks Submission
--- OUTSIDE RECORDS SUMMARY | 2017-03-09 12:11 | XMS REPORT ---
Author Author LASHAY BLACK [facility] Address [address] [place] [address] Care Team Providers Care Admittance Attendant Name Role Phone LASHAY BLACK Unavailable PROBLEMS Type Condition ICD9-CM Code FVV89-UF Code Onset Dates Condition Status SNOMED Code Problem Cervicalgia M54.2 Active 23285660 Problem Anxiety F41.9 Active 12059563 Problem Unspecified asthma, uncomplicated J45.909 Active 074081989 Problem Hypertension I10 Active 05804224 Problem Chronic obstructive pulmonary disease, unspecified J44.9 Active [id number] ALLERGIES No Known Allergies SOCIAL HISTORY No smoking Hx information available PLAN OF CARE VITAL SIGNS MEDICATIONS Medication Instructions Dosage Frequency Start Date End Date Duration Status Lyrica 150 MG Orally Twice a day 1 capsule 12h Feb, 28 days Active RESULTS No Results PROCEDURES No Known procedures IMMUNIZATIONS No Known Immunizations
--- OUTSIDE RECORDS SUMMARY | 2017-03-09 12:11 | XMS REPORT ---
Author Author LASHAY BLACK Organization eClinicalWorks Address Unknown Phone Unavailable Care Team Providers Care Gear Cutting Machine Operator Name Role Phone LASHAY BLACK CP Unavailable Allergies No Known Allergies Problems Problem Type Condition Code Onset Dates Condition Status Problem Unspecified hearing loss 389.9 Active Problem Other chronic pain 338.29 Active Problem Asthma, unspecified, with (acute) exacerbation 493.92 Active Assessment Other chronic pain G89.29 Active Problem Anxiety F41.9 Active Problem Hypertension I10 Active Problem Cervicalgia M54.2 Active Problem Postconcussion syndrome 310.2 Active Problem Post-traumatic headache, unspecified 339.20 Active Problem Cervicalgia 723.1 Active 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
--- OUTSIDE RECORDS SUMMARY | 2017-03-09 12:11 | XMS REPORT ---
Author Author LASHAY BLACK [facility] eClinicalWorks Address Unknown Phone Unavailable Care Team Providers Care Parking Garage Manager Name Role Phone LASHAY BLACK CP Unavailable Allergies No Known Allergies Problems Problem Type Condition Code Onset Dates Condition Status Problem Unspecified hearing loss 389.9 Active Problem Other chronic pain 338.29 Active Problem Asthma, unspecified, with (acute) exacerbation 493.92 Active Assessment Hypertension I10 Active Problem Anxiety F41.9 Active Problem Hypertension I10 Active Problem Cervicalgia M54.2 Active Problem Postconcussion syndrome 310.2 Active Problem Post-traumatic headache, unspecified 339.20 Active Problem Cervicalgia 723.1 Active 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 74607175394 500 MG TAKE ONE TABLET BY MOUTH TWICE DAILY WITH FOOD Aspirin Adult Low Strength [facility] [address]-48 81 MG Orally Once a day 1 tablet [address]omax [facility] 28701050306 0.4 MG TAKE ONE CAPSULE BY MOUTH DAILY Amitriptyline HCl [facility] 32273946533 25 MG TAKE ONE TO TWO TABLETS BY MOUTH ONCE DAILY AT BEDTIME. Hydrocodone-Acetaminophen [facility] [address]-91 7.5-325 MG Orally 3 times a day December 12, 2014 1 tablet as needed for pain Advair Diskus [facility] [address]-77 250 mcg-50 mcg Inhalation May 03, 2014 1 puffs 2 times per day cyclobenzaprine [facility] [address]-78 10 mg November 25, 2014 1 tablet by Oral route 3 times per day PRN Tamsulosin HCl [facility] [address]-51 0.4 MG Orally Once a day 1 capsule 30 minutes after the same meal each day Avodart [facility] 25104775636 0.5 MG TAKE ONE TABLET BY MOUTH ONCE DAILY Sertraline HCl [facility] [address]-28 100 MG Orally Once a day 1 tablet Flonase Allergy Relief [facility] [address]-41 50 MCG/ACT Nasally twice a day December 18, 2015 1 spray in each nostril Propranolol HCl CR [facility] [address]-54 120 MG Orally Once a day Jul 15, 2016 1 capsule Results No Known Results Summary Purpose eClinicalWorks Submission
--- OUTSIDE RECORDS SUMMARY | 2017-03-09 12:12 | XMS REPORT ---
Author Author HEDY RICHMOND [facility] eClinicalWorks Address Unknown Phone Unavailable Care Team Providers Care Assistant Athletic Trainer Name Role Phone HEDY RICHMOND CP Unavailable Allergies, Adverse Reactions, Alerts Substance Reaction Event Type Penicillin V Potassium Info Not Available Drug Allergy Cardura XL Info Not Available Drug Allergy Problems Problem Type Condition Code Onset Dates Condition Status Problem Unspecified hearing loss 389.9 Active Problem Other chronic pain 338.29 Active Problem Asthma, unspecified, with (acute) exacerbation 493.92 Active Assessment Skin tags, multiple acquired L91.8 Active Problem Anxiety F41.9 Active Problem Hypertension I10 Active Problem Cervicalgia M54.2 Active Problem Postconcussion syndrome 310.2 Active Problem Post-traumatic headache, unspecified 339.20 Active Problem Cervicalgia 723.1 Active 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 Medications Medication Code System Code Instructions Start Date End Date Status Dosage Sertraline HCl [facility] [address]-83 100 MG Orally Once a day 1 tablet Naproxen [facility] 59967398115 500 MG TAKE ONE TABLET BY MOUTH TWICE DAILY WITH FOOD cyclobenzaprine [facility] [address]-31 10 mg November 25, 2014 1 tablet by Oral route 3 times per day PRN Flomax [facility] 29690112374 0.4 MG TAKE ONE CAPSULE BY MOUTH DAILY Hydrocodone-Acetaminophen [facility] [address]-46 7.5-325 MG Orally 3 times a day December 12, 2014 1 tablet as needed for pain Aspirin Adult Low Strength [facility] [address]-80 81 MG Orally Once a day 1 tablet Flonase Allergy Relief [facility] [address]-94 50 MCG/ACT Nasally twice a day December 18, 2015 1 spray in each nostril Tamsulosin HCl [facility] [address]-16 0.4 MG Orally Once a day 1 capsule 30 minutes after the same meal each day Amitriptyline HCl [facility] 28584340900 25 MG TAKE ONE TO TWO TABLETS BY MOUTH ONCE DAILY AT BEDTIME. Avodart [facility] 29168389849 0.5 MG TAKE ONE TABLET BY MOUTH ONCE DAILY Propranolol HCl CR [facility] [address]-22 120 MG Orally Once a day Jul 15, 2016 1 capsule Advair Diskus [facility] [address]-40 250 mcg-50 mcg Inhalation May 03, 2014 1 puffs 2 times per day Procedures Procedure Coding System Code Date Office Visit, Est Pt., Level 2 CPT-4 39687 Jul 23, 2016 REMOVAL OF SKIN TAGS CPT-4 23401 Jul 23, 2016 Vital Signs Date/Time: Jul 23, 2016 Cardiac Monitoring Heart Rate 74 bpm Weight 172.5 lbs Height 68 in BMI 26.23 Index Blood Pressure Diastolic 77 mmHg Blood Pressure Systolic 134 mmHg Results No Known Results Summary Purpose eClinicalWorks Submission
--- OUTSIDE RECORDS SUMMARY | 2017-03-09 12:12 | XMS REPORT ---
Author Author LASHAY BLACK Organization eClinicalWorks Address Unknown Phone Unavailable Care Team Providers Care Tourist Home Keeper Name Role Phone LASHAY BLACK CP Unavailable [...] Start Date End Date Status Dosage Lyrica [facility] [address]-11 150 MG Orally Twice a day February 18, 2015 1 capsule Results No Known Results Summary Purpose eClinicalWorks Submission
--- OUTSIDE RECORDS SUMMARY | 2017-03-09 12:12 | XMS REPORT ---
Author Author LASHAY BLACK [facility] eClinicalWorks Address Unknown Phone Unavailable Care Team Providers Care Hotel Services Supervisor Name Role Phone LASHAY BLACK Unavailable Allergies, Adverse Reactions, Alerts Substance Reaction Event Type Penicillin V Potassium Info Not Available Drug Allergy Penicillamine Info Not Available Drug Allergy Cardura XL Info Not Available Drug Allergy Problems Problem Type Condition Code Onset Dates Condition Status Assessment Fatigue R53.83 Active Assessment Chest pain, unspecified R07.9 Active Assessment Irritable bowel syndrome with diarrhea K58.0 Active Assessment Degenerative disc disease, cervical M50.30 Active 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 Problem Postconcussion syndrome 310.2 Active Problem Cervicalgia 723.1 Active Problem Asthma, unspecified, with (acute) exacerbation 493.92 Active Problem Unspecified hearing loss 389.9 Active Problem Post-traumatic headache, unspecified 339.20 Active Problem Other chronic pain 338.29 Active Medications Medication Code System Code Instructions Start Date End Date Status Dosage Propranolol HCl [facility] 24494119771 20 MG TAKE ONE TABLET BY MOUTH TWICE DAILY Amitriptyline HCl [facility] 24938167574 25 MG TAKE ONE TO TWO TABLETS BY MOUTH ONCE DAILY AT BEDTIME. Aspirin Adult Low Strength [facility] [address]-58 81 MG Orally Once a day 1 tablet Hydrocodone-Acetaminophen [facility] [address]-08 7.5-325 MG December 12, 2014 take 1 tablet by Oral route 3 times per day as needed for pain PRN Must last 28 days Advair Diskus [facility] [address]-12 250 mcg-50 mcg Inhalation May 03, 2014 1 puffs 2 times per day Lidoderm [facility] [address]-26 5 %(700 mg/patch) Jun 28, 2012 1 PATCH by Topical route 1 time per day(remove patch(s) after 12 hours) Naproxen [facility] 44672845261 500 MG TAKE ONE TABLET BY MOUTH TWICE DAILY WITH FOOD Lyrica [facility] [address]-31 150 MG Orally Twice a day February 18, 2015 1 capsule Flomax [facility] 23564448742 0.4 MG TAKE ONE CAPSULE BY MOUTH DAILY cyclobenzaprine [facility] [address]-47 10 mg November 25, 2014 1 tablet by Oral route 3 times per day PRN Bentyl [facility] [address]-02 20 MG Orally Four times a day Oct 27, 2015 February 24, 2016 1 tablet Avodart [facility] [address]-16 0.5 MG Aug 13, 2014 take 1 capsule (0.5 mg) by oral route once daily Sertraline HCl [facility] 19499214274 50 MG Orally Once a day 1 tablet Procedures Procedure Coding System Code Date COMPREHEN METABOLIC PANEL CPT-4 55273 Oct 27, 2015 ASSAY OF MAGNESIUM CPT-4 80899 Oct 27, 2015 COMPLETE CBC W/AUTO DIFF WBC CPT-4 38691 Oct 27, 2015 ASSAY THYROID STIM HORMONE CPT-4 20702 Oct 27, 2015 C-REACTIVE PROTEIN, HS CPT-4 83766 Oct 27, 2015 Office Visit, Est Pt., Level 3 CPT-4 37896 Oct 27, 2015 VENIPUNCT, ROUTINE* CPT-4 14713 Oct 27, 2015 Vital Signs Date/Time: Oct 27, 2015 Temperature 97.2 F Weight 167.4 lbs Height 68 in BMI 25.45 Index Blood Pressure Diastolic 90 mmHg Blood Pressure Systolic 130 mmHg Cardiac Monitoring Heart Rate 116 bpm Results Name Result Date Reference Range Unit Abnormality Flag TSH ----TSH 0.581 [id number] 0.450-4.500 uIU/mL CBC ----Basos 1 45962641 % ----MCV 88 02153375 79-97 fL ----Hematocrit 43.9 25585139 37.5-51.0 % ----Eos 1 75784134 % ----MCHC 35.5 23305274 31.5-35.7 g/dL ----Monocytes 9 59909790 % ----MCH 31.3 15993801 26.6-33.0 pg ----Lymphs 14 71510517 % ----Eos (Absolute) 0.1 07287998 0.0-0.4 x10E3/uL ----WBC 8.1 [id number] 3.4-10.8 x10E3/uL ----Monocytes(Absolute) 0.7 29338648 0.1-0.9 x10E3/uL ----Lymphs (Absolute) 1.1 81166931 0.7-3.1 x10E3/uL ----Hemoglobin 15.6 00918129 12.6-17.7 g/dL ----Neutrophils (Absolute) 6.0 33737504 1.4-7.0 x10E3/uL ----RBC 4.99 [id number] 4.14-5.80 x10E6/uL ----Immature Grans (Abs) 0.0 47078377 0.0-0.1 x10E3/uL ----Immature Granulocytes 0 88581734 % ----Neutrophils 75 12157282 % ----Baso (Absolute) 0.1 52179409 0.0-0.2 x10E3/uL ----RDW 14.0 71726212 12.3-15.4 % ----Platelets 265 36260909 150-379 x10E3/uL ROUTINE VENIPUNCTURE MAGNESIUM, SERUM ----Magnesium, Serum 2.0 13250515 1.6-2.3 mg/dL CRP, CARDIAC ----C-Reactive Protein, Cardiac 0.76 [id number] 0.00-3.00 mg/L CMP ----Creatinine, Serum 1.00 97705716 0.76-1.27 mg/dL ----BUN 16 47396458 8-27 mg/dL ----eGFR If Africn Am 92 99108618 >59 mL/min/1.73 ----eGFR If NonAfricn Am 80 02171191 >59 mL/min/1.73 ----Sodium, Serum 138 32306315 134-144 mmol/L ----BUN/Creatinine Ratio 16 68159904 10-22 ----Chloride, Serum 99 14668354 97-108 mmol/L ----Potassium, Serum 3.9 01301372 3.5-5.2 mmol/L ----Carbon Dioxide, Total 23 47467376 18-29 mmol/L ----Protein, Total, Serum 6.8 39793846 6.0-8.5 g/dL ----Calcium, Serum 9.7 39725297 8.6-10.2 mg/dL ----Globulin, Total 2.4 07812149 1.5-4.5 g/dL ----Albumin, Serum 4.4 17161595 3.6-4.8 g/dL ----Bilirubin, Total 0.6 20151027 0.0-1.2 mg/dL ----Glucose, Serum 76 75490497 65-99 mg/dL ----A/G Ratio 1.8 83612901 1.1-2.5 ----ALT (SGPT) 27 20151027 0-44 IU/L ----Alkaline Phosphatase, S 73 38021804 39-117 IU/L ----AST (SGOT) 28 [id number] 0-40 IU/L Summary Purpose eClinicalWorks Submission
--- OUTSIDE RECORDS SUMMARY | 2017-03-09 12:12 | XMS REPORT ---
Author Author LASHAY BLACK [facility] eClinicalWorks Address Unknown Phone Unavailable Care Team Providers Care Recreational Counselor Name Role Phone LASHAY BLACK Unavailable Allergies, Adverse Reactions, Alerts Substance Reaction Event Type Penicillamine Info Not Available Drug Allergy Cardura Xl 4 Mg Tablet Extended Rel 24 Hr Info Not Available Non Drug Allergy Problems Problem Type Condition Code Onset Dates Condition Status Assessment Post-traumatic headache, unspecified, not intractable G44.309 Active Assessment Cervicalgia M54.2 Active Assessment Headache R51 Active Assessment Unspecified intracranial injury without loss of consciousness, sequela S06.9X0S Active 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 Problem Postconcussion syndrome 310.2 Active Problem Cervicalgia 723.1 Active Problem Asthma, unspecified, with (acute) exacerbation 493.92 Active Problem Unspecified hearing loss 389.9 Active Problem Post-traumatic headache, unspecified 339.20 Active Problem Other chronic pain 338.29 Active Medications Medication Code System Code Instructions Start Date End Date Status Dosage Hydrocodone-Acetaminophen [facility] [address]-41 7.5-325 MG Rx to be filled on 07/24/15 December 12, 2014 take 1 tablet by Oral route 3 times per day as needed for pain PRN Must last 28 days Propranolol HCl [facility] 64686731858 20 MG TAKE ONE TABLET BY MOUTH TWICE DAILY Avodart [facility] [address]-09 0.5 MG Aug 13, 2014 take 1 capsule (0.5 mg) by oral route once daily Flomax [facility] 82391694075 0.4 MG TAKE ONE CAPSULE BY MOUTH DAILY Lyrica [facility] [address]-77 150 MG Orally Twice a day February 18, 2015 1 capsule Aspirin Adult Low Strength [facility] [address]-43 81 MG Orally Once a day 1 tablet Naproxen [facility] 96584761661 500 MG TAKE ONE TABLET BY MOUTH TWICE DAILY WITH FOOD Lidoderm [facility] [address]-45 5 %(700 mg/patch) Jun 28, 2012 1 PATCH by Topical route 1 time per day(remove patch(s) after 12 hours) cyclobenzaprine [facility] [address]-60 10 mg November 25, 2014 1 tablet by Oral route 3 times per day PRN Ibuprofen [facility] [address]-51 200 MG Orally every 6 hrs 1 tablet as needed Advair Diskus [facility] [address]-08 250 mcg-50 mcg Inhalation May 03, 2014 1 puffs 2 times per day Amitriptyline HCl [facility] 37810474080 25 MG TAKE ONE TO TWO TABLETS BY MOUTH ONCE DAILY AT BEDTIME. Sertraline HCl [facility] 46362101507 50 MG Orally Once a day 1 tablet Procedures Procedure Coding System Code Date Office Visit, Est Pt., Level 3 CPT-4 21053 Aug 13, 2015 Vital Signs Date/Time: Aug 13, 2015 Temperature 97.8 F Weight 168 lbs Height 68 in BMI 25.54 Index Blood Pressure Diastolic 82 mmHg Blood Pressure Systolic 130 mmHg Cardiac Monitoring Heart Rate 88 bpm Results No Known Results Summary Purpose eClinicalWorks Submission
--- OUTSIDE RECORDS SUMMARY | 2017-03-09 12:12 | XMS REPORT ---
Author Author LASHAY BLACK [facility] Address [address] [place] [address] Care Team Providers Care Speech Coach Name Role Phone LASHAY BLACK Unavailable PROBLEMS Type Condition ICD9-CM Code GQZ46-GX Code Onset Dates Condition Status SNOMED Code Assessment Other chronic pain G89.29 May, Active 23648764 Problem Cervicalgia M54.2 Active 69861464 Problem Anxiety F41.9 Active 00557548 Problem Unspecified asthma, uncomplicated J45.909 Active 632335303 Assessment Pain in right knee M25.561 May, Active 34629349 Problem Hypertension I10 Active 02439470 Problem Chronic obstructive pulmonary disease, unspecified J44.9 Active 60065041419750312 ALLERGIES Substance Reaction Event Type Date Status Penicillin V Potassium Unknown Drug Allergy May, Active Cardura XL Unknown Drug Allergy May, Active SOCIAL HISTORY No smoking Hx information available PLAN OF CARE VITAL SIGNS Height 68 in 2016-05-20 Weight 176.0 lbs 2016-05-20 Heart Rate 72 bpm 2016-05-20 Respiratory Rate 18 2016-05-20 BMI 26.76 kg/m2 2016-05-20 Blood pressure systolic 133 mmHg 2016-05-20 Blood pressure diastolic 83 mmHg 2016-05-20 MEDICATIONS Medication Instructions Dosage Frequency Start Date End Date Duration Status Aspirin Adult Low Strength 81 MG Orally Once a day 1 tablet 24h Active Sertraline HCl 100 MG Orally Once a day 1 tablet 24h Active Flonase Allergy Relief 50 MCG/ACT Nasally twice a day 1 spray in each nostril 12h Nov, Active Tamsulosin HCl 0.4 MG Orally Once a day 1 capsule 30 minutes after the same meal each day 24h 90 Active Avodart 0.5 MG TAKE ONE TABLET BY MOUTH ONCE DAILY 30 Active Propranolol HCl 60 MG Orally Twice a day TAKE ONE TABLET BY MOUTH TWICE DAILY 12h 30 Active cyclobenzaprine 10 mg 1 tablet by Oral route 3 times per day PRN Nov 30 Active Advair Diskus 250 mcg-50 mcg 1 puffs 2 times per day Apr, Active Naproxen 500 MG TAKE ONE TABLET BY MOUTH TWICE DAILY WITH FOOD 30 Active Flomax 0.4 MG TAKE ONE CAPSULE BY MOUTH DAILY 30 Active Hydrocodone-Acetaminophen 7.5-325 MG Orally 3 times a day 1 tablet as needed for pain 8h Nov, 28 days Active Lyrica 150 MG Orally Twice a day 1 capsule 12h Feb, 28 days Active Amitriptyline HCl 25 MG TAKE ONE TO TWO TABLETS BY MOUTH ONCE DAILY AT BEDTIME. 30 Active RESULTS No Results PROCEDURES Procedure Date Ordered Related Diagnosis Body Site JOINT INJECTION-LARGE JOINT 2016-05-20 N/A X-RAY EXAM OF KNEE, 3 May 20, 2016 Office Visit, Est Pt., Level 3 May 20, 2016 DRAIN/INJECT, JOINT/BURSA May 20, 2016 IMMUNIZATIONS No Known Immunizations
--- OUTSIDE RECORDS SUMMARY | 2017-03-09 12:13 | XMS REPORT ---
Author Author LASHAY BLACK Organization eClinicalWorks Address Unknown Phone Unavailable Care Team Providers Care Full Stack Php Developer Name Role Phone LASHAY BLACK CP Unavailable Allergies No Known Allergies Problems Problem Type Condition Code Onset Dates Condition Status Problem Unspecified hearing loss 389.9 Active Problem Other chronic pain 338.29 Active Problem Asthma, unspecified, with (acute) exacerbation 493.92 Active Problem Anxiety F41.9 Active Problem Hypertension I10 Active Problem Cervicalgia M54.2 Active Problem Postconcussion syndrome 310.2 Active Problem Post-traumatic headache, unspecified 339.20 Active Problem Cervicalgia 723.1 Active 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
--- OUTSIDE RECORDS SUMMARY | 2017-03-09 12:13 | XMS REPORT ---
Author Author LASHAY BLACK Organization eClinicalWorks Address Unknown Phone Unavailable Care Team Providers Care Poultry Farmer Egg Name Role Phone LASHAY BLACK CP Unavailable [...] Start Date End Date Status Dosage Lyrica [facility] [address]-06 150 MG Orally Twice a day February 18, 2015 1 capsule Results No Known Results Summary Purpose eClinicalWorks Submission
--- OUTSIDE RECORDS SUMMARY | 2017-03-09 12:13 | XMS REPORT ---
Author Author LASHAY BLACK Organization eClinicalWorks Address Unknown Phone Unavailable Care Team Providers Care Aircraft Avionics Technician Name Role Phone LASHAY BLACK CP Unavailable [...] Start Date End Date Status Dosage Lyrica [facility] [address]-67 150 MG Orally Twice a day February 18, 2015 1 capsule Results No Known Results Summary Purpose eClinicalWorks Submission
--- OUTSIDE RECORDS SUMMARY | 2017-03-09 12:13 | XMS REPORT ---
Author Author LASHAY BLACK Organization eClinical[employer] Address Unknown Phone Unavailable Care Team Providers Care Event Host Name Role Phone LASHAY BLACK CP Unavailable [...] Date End Date Status Dosage Hydrocodone-Acetaminophen [facility] [address]-22 7.5-325 MG Rx to be filled on 07/24/15 December 12, 2014 take 1 tablet by Oral route 3 times per day as needed for pain PRN Must last 28 days Results No Known Results Summary Purpose eClinicalWorks Submission
== END 2017-03-04 12:48 | disposition home or self-care (01) ==
LOC: SDC 07:40
PROVIDERS: ATTEND Surgery
DX: C44.709 Unspecified malignant neoplasm of skin of left lower limb, including hip (principal); J44.9 Chronic obstructive pulmonary disease, unspecified; J45.909 Unspecified asthma, uncomplicated; I10 Essential (primary) hypertension; F17.220 Nicotine dependence, chewing tobacco, uncomplicated; Z79.899 Other long term (current) drug therapy
CPT/HCPCS: 87081

== ENCOUNTER 2017-04-27 16:27 | Emergency (ER) | payer OTHER ==
[~2017-04-27] VITALS: Ht 172.7 cm; Wt 72.6 kg
[~2017-04-27 16:27] MED LIST changes: +HYDR-3812 PO; -NAPR500T3 PO; +NAPR500T4 PO; +TIOT18CA2 IH
--- OUTSIDE RECORDS SUMMARY | 2017-04-27 16:33 | XMS REPORT | Clinical Summary ---
Author Author [facility] Organization [facility] Address Unknown Phone Unavailable Care Team Providers Care Chancellor Name Role Phone PCP Unavailable Source Comments Some departments are not documenting in the electronic medical record. If you do not see the information that you expected, contact Release of Information in the Health Information Management department at [phone] for further assistance in locating additional records.[facility] Allergies Not on File Current Medications Not on file Active Problems Not on file Encounters Date Type Specialty Care Team Description 03/23/2017 Telephone Oncology Katy Saucedo, disaster recovery analyst from Last 3 Months Social History Tobacco Use Types Packs/Day Years Used Date Never Assessed Sex Assigned at Date Recorded Not on file Last Filed Vital Signs Not on file Plan of Treatment Health Maintenance Due Date Last Done Comments HEPATITIS C SCREENING 1950 PHYSICAL (COMPREHENSIVE) 1959 EXAM PERTUSSIS VACCINE 1963 TETANUS VACCINE 1969 COLORECTAL CANCER 2002 SCREENING SHINGLES VACCINE 2012 INFLUENZA VACCINE 05/20/2017 Results Not on filefrom Last 3 Months
--- OUTSIDE RECORDS SUMMARY | 2017-04-27 16:33 | XMS REPORT | Encounter Summary ---
Author Author [facility] Organization [facility] Address Unknown Phone Unavailable Care Team Providers Care Income Tax Manager Name Role Phone PCP Unavailable Reason for Visit * Reason Comments Referral Encounter Details Date Type Department Care Team Description 03/23/2017 Telephone [facility] Katy Saucedo, [facility] Exam [address] [place] [id number] Social History Tobacco Use Types Packs/Day Years Used Date Never Assessed Sex Assigned at Date Recorded Not on file as of this encounter Plan of Treatment Not on fileas of this encounter Visit Diagnoses Not on filein this encounter
[2017-04-27] MEDS ORDERED: TETANUS,DIPTH,PERTUSS P/F (BOOSTRIX) 0.5 ML VIAL IM STA (16:39)
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
--- NOTE | 2017-04-27 17:10 | Diagnostic Imaging Report ---
PROCEDURE: CT head and CT cervical spine without contrast. TECHNIQUE: Multiple contiguous axial images were obtained through the brain and cervical spine without the use of intravenous contrast. Sagittal and coronal reformations through the cervical spine were then performed. INDICATION: Injury. The patient was thrown from a horse. FINDINGS: CT head: There is no intracranial hemorrhage, edema or mass effect. There is no hydrocephalus. No extra-axial fluid collection is seen. The calvarium appears unremarkable. The orbits and the paranasal sinuses appear unremarkable. CT cervical spine: There is straightening of the cervical curvature. There is minimal anterior translation of C4 over C5 and minimal posterior translation of C5 over C6. There are prominent posterior osteophytes at C5/C6 level. Also at this level, there is moderate disc height loss seen. The alignment at the facet joints, at the lateral masses of C1 and C2 and at the atlanto-occipital joints is satisfactory. There is no widening of the predental space. Significant degenerative changes at the facet joints of C3/C4 and C4/C5 are seen, worse on the left side. There is bilateral severe foramina stenosis at C5/C6 level and moderate to severe foraminal stenosis on the left side at C4/C5. No fracture is seen. IMPRESSION: CT head: Unremarkable exam. CT cervical spine: Prominent degenerative disc and facet changes, worst at C5/C6 level with mild alignment abnormalities around C5 level are also probably degenerative related. No fracture is seen. Dictated by: Dictated on workstation # [id number]
[2017-04-27] MEDS ORDERED: LIDOCAINE 1% INJ 20 ML (XYLOCAINE) VIAL ONE (17:19)
[2017-04-27] MEDS ORDERED: LIDOCAINE 1% INJ 20 ML (XYLOCAINE) VIAL INJ STA (17:22)
[2017-04-27] MEDS ORDERED: KETOROLAC 30 MG/ML VIAL IVP STA (17:22)
[2017-04-27] MEDS ORDERED: fentaNYL INJECTION 100 MCG/2 ML AMP IVP STA (17:22)
[2017-04-27] MEDS ORDERED: ONDANSETRON 4 MG/2 ML (SDV) Z0FRAN IVP ONE (17:30)
[2017-04-27] MEDS ORDERED: ONDA8TAB9 PO (17:47)
[2017-04-27] MEDS ORDERED: CEPH-507 PO (17:47)
[2017-04-27] MEDS ORDERED: MECLIZINE 25 MG (ANTIVERT) TAB PO ONE (18:15)
[2017-04-27 18:45] VITALS: BP 135/82
== END 2017-04-27 18:45 | disposition home or self-care (01) ==
LOC: EDUNIT# 16:27 → ER 16:28
DX: S06.0X0A Concussion without loss of consciousness, initial encounter (principal); S01.01XA Laceration without foreign body of scalp, initial encounter; J44.9 Chronic obstructive pulmonary disease, unspecified; G47.30 Sleep apnea, unspecified; E78.00 Pure hypercholesterolemia, unspecified; I10 Essential (primary) hypertension; G43.909 Migraine, unspecified, not intractable, without status migrainosus; N40.0 Benign prostatic hyperplasia without lower urinary tract symptoms; K21.9 Gastro-esophageal reflux disease without esophagitis; M19.90 Unspecified osteoarthritis, unspecified site; M54.9 Dorsalgia, unspecified; G89.29 Other chronic pain; Z87.891 Personal history of nicotine dependence; Z90.49 Acquired absence of other specified parts of digestive tract; V80.010A Animal-rider injured by fall from or being thrown from horse in noncollision accident, initial encounter; W22.09XA Striking against other stationary object, initial encounter
CPT/HCPCS: 12001; 70450; 72125; 90471; 90715; 96374; 96375

== ENCOUNTER → 2017-07-06 | Outpatient (CLI) | payer OTHER ==
[~2017-07-06] MED LIST changes: +CEPH-507 PO; +GADOBUTROL 7.5 MMOL/7.5 ML (GADAVIST) VIAL IV ONE; +IOHEXOL 350 MG/ML 100 ML (OMNIPAQUE 350) VIAL IV ONE; +NAPR500T3 PO; -NAPR500T4 PO; +NS 100 ML (IVPB) BAG IV ONE
[2017-07-06 14:10] LABS: RED BLOOD COUNT 4.93 10^6/uL (4.35-5.85); WHITE BLOOD COUNT 6.5 10^3/uL (4.3-11.0)
[2017-07-06 14:11] LABS: BASOPHILS # (AUTO) 0.1 10^3/uL (0.0-0.1); BASOPHILS % (AUTO) 1 % (0-10); EOSINOPHILS # (AUTO) 0.2 10^3/uL (0.0-0.3); EOSINOPHILS % (AUTO) 4 % (0-10); LYMPHOCYTES # (AUTO) 1.4 X 10^3 (1.0-4.0); LYMPHOCYTES % (AUTO) 21 % (12-44); MEAN CORPUSCULAR HEMOGLOBIN 31 PG (25-34); MEAN CORPUSCULAR HGB CONC 34 G/DL (32-36); MEAN CORPUSCULAR VOLUME 91 FL (80-99); MEAN PLATELET VOLUME 9.2 FL (7.4-10.4); MONOCYTES # (AUTO) 0.4 X 10^3 (0.0-1.0); MONOCYTES % (AUTO) 6 % (0-12); NEUTROPHILS # (AUTO) 4.5 X 10^3 (1.8-7.8); NEUTROPHILS % (AUTO) 68 % (42-75); PLATELET COUNT 219 10^3/uL (130-400); RED CELL DISTRIBUTION WIDTH 12.7 % (10.0-14.5)
[2017-07-06 14:31] LABS: ALANINE AMINOTRANSFERASE 20 U/L (0-55); ANION GAP 8 MMOL/L (5-14); ASPARTATE AMINO TRANSFERASE 13 U/L (5-34); BILIRUBIN,TOTAL 0.6 MG/DL (0.1-1.0); BLOOD UREA NITROGEN 8 MG/DL (7-18); BUN/CREATININE RATIO 8; CALCIUM 9.1 MG/DL (8.5-10.1); CARBON DIOXIDE 23 MMOL/L (21-32); CHLORIDE 104 MMOL/L (98-107); CREATININE SERUM 0.96 MG/DL (0.60-1.30); GFR ESTIMATED > 60; GLUCOSE 148 MG/DL (70-105); POTASSIUM 4.1 MMOL/L (3.6-5.0); SODIUM 135 MMOL/L (135-145)
--- NOTE | 2017-07-06 17:11 | Diagnostic Imaging Report ---
PROCEDURE: MRI left lower extremity with and without contrast. TECHNIQUE: Multiplanar, multisequence pre and post contrast-enhanced MRI of the left lower extremity was accomplished. 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 7 mL of Gadavist is administered intravenously. FINDINGS: There is mild thickening and enhancement along the lateral aspect of the hindfoot with no discrete enhancing mass seen. These are probably related to the postsurgical changes based on the provided history of recent resection. In the subcutaneous tissues and in the muscles along the plantar aspect, there is normal signal with no soft tissue mass. There is no evidence of tumor extension into the bone. There is minimal fluid within the peroneal tendon sheaths suggestive of mild tenosynovitis. The alignment of the osseous structures along the tarsal bones, the tarsometatarsal joints and at the ankle and subtalar joints is satisfactory. There is however a minimal effusion at the ankle joint. The plantar fascia is not thickened. The Achilles tendon appears unremarkable. The extensor and flexor tendons visualized appear grossly unremarkable. IMPRESSION: There is skin thickening and minimal enhancement seen along the lateral lower aspect of the left foot at the skin level compatible with history of recent skin cancer resection. There is no definite nodular enhancement to suggest an obvious remaining tumor. There is no evidence of tumor extension into the deeper aspect of the subcutaneous fat or into the muscular layer. Dictated by: Dictated on workstation # [id number]
--- NOTE | 2017-07-06 18:10 | Diagnostic Imaging Report ---
PROCEDURE: CT chest, abdomen, and pelvis with contrast. TECHNIQUE: Multiple contiguous axial images were obtained through the chest, abdomen, and pelvis after the administration of intravenous contrast. INDICATION: Skin cancer. 100 mL of Omnipaque 350 is administered intravenously. FINDINGS: CT CHEST: There is a 7 mm nodule along the mid aspect of the right major fissure. This is partially visualized on CT abdomen from 02/02/2016 exam and is probably stable. Along the major fissure on the left side, a 7 mm nodule is also seen. This is above the level of the previous abdominal exam and no prior study is available for comparison. There is no significant consolidation or mass. The heart size is normal. No pleural or pericardial effusion. There is a low density right paratracheal lesion with density just above simple fluid. This could represent a duplication cyst rather than an enlarged lymph node. No mediastinal mass is seen otherwise. No axillary lymphadenopathy. No hilar lymphadenopathy seen. The osseous structures appear grossly unremarkable. CT ABDOMEN AND PELVIS: The liver demonstrates multiple hypoattenuating lesions generally similar to 02/02/2016 exam. This is up to 1.7 x 0.8 cm in the right hepatic dome likely related to hepatic cysts. Cholecystectomy clips are seen. The spleen, the adrenal glands, and the pancreas appear unremarkable. The kidneys have symmetric enhancement. No hydronephrosis. The urinary bladder appears unremarkable. There is diverticulosis. No diverticulitis. There is moderate amount of fecal material seen in the colon. The abdominal aorta is normal in caliber. No para-aortic significantly enlarged lymph node is seen. There are surgical changes with a mesh seen that has radiopaque markers along the inguinal regions probably related to prior hernia repair. There is asymmetric thickening in the left seminal vesicle laterally. This appears similar to 2016 exam. Mild thickening of the urinary bladder wall could relate to cystitis. The prostate is enlarged measuring 5 cm in transverse dimension. No retroperitoneal or pelvic lymphadenopathy or mass is seen. The osseous structures demonstrate mild degenerative changes. IMPRESSION: CT CHEST: 1. There are pulmonary nodules along the major fissure on both sides up to 7 mm in size. These are nonspecific in etiology. Followup exams recommended. 2. Low attenuation lobulated lesion in the right paratracheal area with density just above simple fluid is favored to be a duplication cyst rather than related to a lymph node enlargement. Followup exams or PET/CT evaluation would be helpful. CT ABDOMEN AND PELVIS: 1. Multiple low-attenuation lesions in the liver are likely cysts. 2. Asymmetric soft tissue thickening in the left seminal vesicles appear similar to 2016 exam, probably benign or a normal variant given its stability. 3. Mild urinary bladder wall thickening which could correlate with cystitis. 4. Diverticulosis. No diverticulitis. Dictated by: Dictated on workstation # [id number]
== END ==
LOC: RAD 13:57
PROVIDERS: ATTEND Internal Medicine Hematology
DX: C44.99 Other specified malignant neoplasm of skin, unspecified (principal); R91.8 Other nonspecific abnormal finding of lung field; K76.9 Liver disease, unspecified; K57.30 Diverticulosis of large intestine without perforation or abscess without bleeding; Z98.890 Other specified postprocedural states
CPT/HCPCS: 36415; 71260; 73720; 74177; 80053; 85025

== ENCOUNTER 2018-05-26 08:10 | Emergency (ER) | payer SELFPAY ==
[~2018-05-26] VITALS: Ht 172.7 cm; Wt 72.6 kg
[~2018-05-26 08:10] MED LIST changes: +ACHD5005 PO; -GADOBUTROL 7.5 MMOL/7.5 ML (GADAVIST) VIAL IV ONE; +HYDR-34 PO; -HYDR-3812 PO; -HYDR-3816 PO; -IOHEXOL 350 MG/ML 100 ML (OMNIPAQUE 350) VIAL IV ONE; +NAPR-915 PO; -NAPR500T3 PO; -NS 100 ML (IVPB) BAG IV ONE
[2018-05-26] MEDS ORDERED: ASPIRIN 81 MG CHEW (CHILDREN'S ASA) PO ONE (08:15)
[2018-05-26] MEDS ORDERED: NITROGLYCERIN 0.4 MG SL TABS BTL 25'S SL PRN (08:15)
--- OUTSIDE RECORDS SUMMARY | 2018-05-26 08:15 | XMS REPORT | Clinical Summary ---
Author Author [facility] Organization [facility] Address Unknown Phone Unavailable Care Team Providers Care Solution Architect Name Role Phone Alida Fabiannda CLINICAL SPECIALIST VASCULAR PCP Source Comments Some departments are not documenting in the electronic medical record. If you do not see the information that you expected, contact Release of Information in the Health Information Management department at [phone] for further assistance in locating additional records.[facility] Allergies Not on File Current Medications Prescription Sig. Disp. Refills Start End Date Status Date amitriptyline (ELAVIL) 25 TAKE 1 TO 2 TABLETS BY 0 06/27/20 Active mg tablet MOUTH ONCE DAILY AT 17 BEDTIME amLODIPine (NORVASC) 10 TAKE ONE TABLET BY MOUTH 1 06/29/20 Active mg tablet ONCE DAILY 17 dicyclomine (BENTYL) 20 TAKE ONE TABLET BY MOUTH 0 05/31/20 Active mg tablet FOUR TIMES DAILY 17 fluticasone (FLONASE) 50 USE ONE SPRAY IN EACH 0 05/24/20 Active mcg/actuation nasal spray NOSTRIL TWICE DAILY 17 HYDROcodone/acetaminophen TAKE ONE TABLET BY MOUTH 0 05/31/20 Active (NORCO) 7.5/325 mg tablet NEEDED FOR PAIN 3 17 TIMES A DAY pantoprazole DR TAKE ONE TABLET BY MOUTH 1 06/20/20 Active (PROTONIX) 40 mg tablet ONCE DAILY 17 INDERAL LA 120 mg capsule TAKE ONE CAPSULE BY MOUTH 0 06/07/20 Active ONCE DAILY 17 INDERAL LA 160 mg Cs24 TAKE ONE CAPSULE BY MOUTH 1 06/29/20 Active capsule ONCE DAILY 17 CARAFATE 1 gram tablet TAKE ONE TABLET BY MOUTH 1 05/10/20 Active FOUR TIMES DAILY BEFORE 17 MEALS AND AT BEDTIME trimethoprim/sulfamethoxa TAKE 1 TABLET BY MOUTH 0 03/17/20 Active zole (BACTRIM DS) 160/800 TWICE DAILY FOR 7 DAYS 17 mg tablet sumatriptan succinate TAKE ONE TABLET BY MOUTH 3 06/14/20 Active (IMITREX) 100 mg tablet TWICE DAILY NEEDED 17 FLOMAX 0.4 mg capsule TAKE ONE CAPSULE BY MOUTH 0 06/27/20 Active ONCE DAILY AFTER THE SAME 17 MEALS EACH DAY SPIRIVA WITH HANDIHALER INHALE CONTENTS OF ONE 6 06/09/20 Active 18 mcg capsule for CAPSULE BY MOUTH ONCE 17 inhaler DAILY (TWO INHALATIONS PER ONE CAPSULE) Active Problems Problem Noted Date Melanoma (HCC) 07/15/2017 Overview: Added automatically from request for surgery [id number] 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 Mr Hyman is a very pleasant 67 year old gentleman with past medical history of HTN, HLD, RODOLFO, COPD, recently diagnosed syringoid eccrine carcinoma who is presenting to to establish care and seek opinion from medical oncology. Patient was seen in the primary care clinic earlier this year and was noticed to have an abnormal growth on the lateral surface of the left foot. He was referred to a general surgeon down in [place], [place] and underwent excision of the lesion. Pathology came back for syringoid eccrine carcinoma which was invading the skeletal muscle and margins were positive. He was subsequently referred to for expert surgical opinion. However, patient does not have insurance and did not want to come up to due to financial constraints. After months of going back and forth, family was able to convince him to come down and meet the medical oncology team to discuss his diagnosis and subsequent plan for treatment and management. He tells me that if need any imaging and labs to be done, he can get them at [facility] since they have some sort of arrangement with that hospital and we can get work up done as needed. He is otherwise doing well. Other than pain multiple accidental injuries and dyspnea COPD, he does not believe he has many other ongoing issues. His weight is stable. Patient denies any fevers, chills, headaches, weakness, paresthesias, numbness, cough, shortness of air, chest pain, palpitations, syncope, leg swelling, nausea, vomiting, abdominal pain, diarrhea, joint pains, skin rash. Pathology: 03/06/17 Path Skin and subcutaneous tissue, left foot, excision --Malignant cutaneous adnexal neoplasm, favor syringoid eccrine carcinoma, with prominent perineural invasion and extension into the subcutaneous tissue and skeletal muscle; tumor extensively involves deep and transverse surgical margins. See full pathology report. Plan This is a particular rare tumor and we were only able to find case reports regarding management. We did see case reports of metastatic disease. He does have concerning risk factors for metastatic disease including deep invasion, involvement of surgical margins and perineural invasion. We do think it is important to obtain CT CAP to rule out metastatic disease before pursuing local treatment. In order to plan local treatment, MRI of the foot will be required. Patient/family stated that they have been able to get lab/imaging done [facility] [address] somehow and can get whatever we need through that hospital. So Ирина, our CNC, will arrange for this to be completed. We will also get routine labs as well. Once the imaging is available for review, I plan on discussing his case at the [facility]. RTC planned in 2 weeks after completion of imaging. Social History Tobacco Use Types Packs/Day Years Used Date Never Assessed Sex Assigned at Date Recorded Not on file Last Filed Vital Signs Vital Sign Reading Time Taken Blood Pressure 138/90 07/01/2017 9:44 AM CDT Pulse 65 07/01/2017 9:44 AM CDT Temperature 36.9 C (98.5 F) 07/01/2017 9:44 AM CDT Respiratory Rate 16 07/01/2017 9:44 AM CDT Oxygen Saturation 99% 07/01/2017 9:44 AM CDT Inhaled Oxygen - - Concentration Weight 75.8 kg (167 lb 3.2 oz) 07/01/2017 9:44 AM CDT Height 177.8 cm (5' 10") 07/01/2017 9:44 AM CDT Body Mass Index 23.99 07/01/2017 9:44 AM CDT Plan of Treatment Health Maintenance Due Date Last Done Comments HEPATITIS C SCREENING 1952 PHYSICAL (COMPREHENSIVE) 1959 EXAM PERTUSSIS VACCINE 1963 TETANUS VACCINE 1969 COLORECTAL CANCER 2002 SCREENING SHINGLES RECOMBINANT 2002 VACCINE (1 of 2) PNEUMONIA (PCV13/PPSV23) 2017 VACCINES (1 of 2 - PCV13) INFLUENZA VACCINE 06/19/2018 07/23/2008 Results Not on filefrom Last 3 Months
--- OUTSIDE RECORDS SUMMARY | 2018-05-26 08:16 | XMS REPORT ---
Author Author LASHAY BLACK Organization [facility] Address [address] [place] [address] Care Team Providers Care Truant Officer Name Role Phone LASHAY BLACK Unavailable PROBLEMS Type Condition ICD9-CM Code [id number] Code Onset Dates Condition Status SNOMED Code Problem Irritable bowel syndrome with diarrhea K58.0 Active 876245398 Problem Venous vascular malformations Q27.9 Active 593422705 Problem Chronic obstructive pulmonary disease, unspecified COPD type J44.9 Active 56832271 Problem Primary insomnia F51.01 Active 8412249 Problem Migraine without aura and without status migrainosus, not intractable G43.009 Active 776440181 Problem 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 114211181 Problem Hypercholesterolemia E78.00 Active 13987752 Problem Post concussion syndrome F07.81 Active 05134954 Problem Other headache syndrome G44.89 Active 735236139 Problem Decreased renal function N28.9 Active 35031968 Problem Unspecified asthma, uncomplicated J45.909 Active 639963833 Problem Cervicalgia M54.2 Active 53232142 Problem Other chronic pain G89.29 Active 97259394 Problem Hypertension I10 Active 11598066 Problem Idiopathic sleep related nonobstructive alveolar 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 Active 82874981 Problem Anxiety F41.9 Active 08102159 Problem Obstructive sleep apnea G47.33 Active 04918541 ALLERGIES No Information ENCOUNTERS Encounter Location Date Diagnosis [facility] [address] [facility] [id number], [place] [address] Apr, Other chronic pain G89.29 [facility] [address] [id number] [address] Mar, Other chronic pain G89.29 [facility] [address] [facility] [id number], [place] [address] Mar, Decreased renal function N28.9 [facility] [place] [facility] [id number] [place] [address] 55059- 5682 Feb, Xyphoidalgia R07.89 [facility] [id number] [place] [address] 53902- 7408 January, Arthralgia, unspecified joint M25.50 and Other chronic pain G89.29 [place] [address] [address]287- 8277 Dec, Drug-induced constipation K59.03 ; Fatigue, unspecified type R53.83 ; Forgetfulness R68.89 ; Other chronic pain G89.29 and Primary insomnia F51.01 [place] [address] 67245- 8906 Nov, [place] [address] 06405- 2565 Oct, Other chronic pain G89.29 [facility] [id number] [place] [address] 46869- 0050 Sep, Other chronic pain G89.29 [facility] [address] 76506- 5921 Sep, Other chronic pain G89.29 [place] [id number] [place] [address] 61186- 7817 Aug, Other chronic pain G89.29 [facility] [address] 35910- 5496 Jul, Other chronic pain G89.29 ; Encounter for immunization Z23 and Side effects of treatment, initial encounter T88.9XXA [place] [address] 16137- 6714 Jul, Other chronic pain G89.29 [facility] [id number] [place] [address] 04457 -8677 Jul, [facility] [address] [place] [address] 2048 Jul, Encounter for immunization Z23 [place] [address] 90834- 8862 Jun, Hypertension I10 ; Other headache syndrome G44.89 ; Post concussion syndrome F07.81 and Other chronic pain G89.29 [place] [address] 61835- 6559 May, [place] [address] 35007- 4167 May, Migraine without aura and without status migrainosus, not intractable G43.009 [place] [address] 91033- 0980 May, 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 [address]09- 9814 May, Other chronic pain G89.29 [place] [address] 27061- 9349 Apr, Chronic obstructive pulmonary disease, unspecified COPD type J44.9 [place] [address] 42553- 8541 Apr, Chronic obstructive pulmonary disease, unspecified COPD type J44.9 [place] [address] 00714- 8577 Apr, Other chronic pain G89.29 ; Irritable bowel syndrome with diarrhea K58.0 and Hypercholesterolemia E78.00 [place] [id number] [place] [address] 80703- 6462 Apr, Other chronic pain G89.29 [place] [address] 30195- 2854 Mar, Other chronic pain G89.29 [place] [address] 15810- 9232 Feb, 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 [facility] [address], [place] [address] 6617 Feb, Other chronic pain G89.29 [facility] [id number] [place] [address] 12831- 3454 Feb, [facility] [id number] [place] [address] 86660- 5950 January, [facility] [id number] [place] [address] 60045- 1995 January, Other chronic pain G89.29 [facility] [id number] [place] [address] 38943- 5826 January, [facility] [id number] [place] [address] 70889- 2206 January, [facility] [id number] [place] [address] 92882- 1044 January, Other chronic pain G89.29 ; Irritable bowel syndrome with diarrhea K58.0 and Hypercholesterolemia E78.00 [facility] [id number] [place] [address] 08001- 2140 January, Other chronic pain G89.29 ; Hypertension I10 ; Irritable bowel syndrome with diarrhea K58.0 ; Chronic obstructive pulmonary disease, unspecified COPD type J44.9 and Venous vascular malformations Q27.9 [facility] [id number], [place] [address] January, Acute otitis externa of right ear, unspecified type H60.501 [facility] [id number] [place] [address] 94440- 4712 Dec, Other chronic pain G89.29 [facility] [id number] [place] [address] 08875- 4514 Dec, Hypertension I10 [facility] [id number] [place] [address] 22027- 3403 Nov, Other chronic pain G89.29 [facility] [id number] [place] [address] 45492- 1911 Oct, Other chronic pain G89.29 [facility] [id number] [place] [address] 57186- 3517 Sep, Other chronic pain G89.29 [facility] [address] 72366- 0328 Sep, Hypertension I10 [facility] [id number] [place] [address] 96381- 6624 Sep, Other chronic pain G89.29 [facility] [address] 97479- 2932 Aug, Arthralgia, unspecified joint M25.50 ; Other chronic pain G89.29 ; Obstructive sleep apnea G47.33 and Idiopathic sleep related nonobstructive alveolar 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 [place] [id number] [place] [address] 37166- 9942 Aug, [facility] [address] 83581- 6831 Aug, Other chronic pain G89.29 [facility] [id number] [place] [address] 19027- 5300 Jul, Chronic obstructive pulmonary disease, unspecified COPD type J44.9 and Diarrhea, unspecified type R19.7 [facility] [id number] [place] [address] 92855- 1627 Jul, Other chronic pain G89.29 [facility] [id number] [place] [address] 59095- 3267 Jul, Skin tags, multiple acquired L91.8 [facility] [id number] [place] [address] 94862- 7651 Jun, [facility] [address] 99032- 0391 Jun, Hypertension I10 [place] [id number] [place] [address] 43644- 3973 May, Mouth pain K13.79 and Other chronic pain G89.29 [place] [id number] [place] [address] 20434- 9954 May, [place] [address] 94256- 0632 May, [place] [address] 24591- 4356 May, Pain in right knee M25.561 and Other chronic pain G89.29 [place] [address] 61635- 5097 Apr, Cervicalgia M54.[address] 15287- 7284 Mar, Cervicalgia M54.2 [place] [address] 59340- 3203 Feb, Fever, unspecified fever cause R50.9 and Arthralgia, unspecified joint M25.50 [place] [id number] [place] [address] 23090- 1373 15 Feb, 2016 Hypertension I10 and Chronic pain syndrome G89.4 [place] [id number] [place] [address] 21121- 1514 Feb, Cervicalgia M54.2 [place] [id number] [place] [address] 82411- 3960 January, [place] [address] 64098- 5008 13 Dec, 2015 Chest pain R07.9 ; Family history of early CAD Z82.49 ; Hypertension I10 ; Fatigue R53.83 and History of IBS Z87.19 [place] [id number] [place] [address] 75322- 5650 Dec, [facility] [id number] [place] [address] 77567- 1975 Nov, Allergic rhinitis J30.9 [facility] [address] 32632- 0789 Nov, [facility] [address] 18910- 8479 Nov, Hypertension I10 and Anxiety F41.9 [facility] [address] 87975- 3270 Nov, [place] [address] 97160- 2188 Oct, [place] [address] 17367- 2259 Oct, Chest pain R07.9 ; Family history of early CAD Z82.49 ; Hypertension I10 ; Fatigue R53.83 and History of IBS Z87.19 [place] [id number] [place] [address] 37777- 3932 Oct, [place] [address] 48624- 4476 Oct, Chest pain, unspecified R07.9 [place] [id number] [place] [address] 77888- 0173 08 Oct, 2015 Chest pain, unspecified R07.9 ; Irritable bowel syndrome with diarrhea K58.0 ; Fatigue R53.83 and Degenerative disc disease, cervical M50.30 [facility] [id number] [place] [address] 14969- 4734 Oct, [facility] [id number] [place] [address] 60580- 3044 Oct, [facility] [id number] [place] [address] 01398- 5538 Sep, [facility] [address] [id number] [address]- 2190 Sep, [facility] [id number] [place] [address] 60052- 9321 Aug, [facility] [id number] [place] [address] 03097- 1746 Aug, [facility] [id number] [place] [address] 217313- 2430 Aug, [facility] [id number] [place] [address] 31861- 1007 Jul, Cervicalgia M54.2 ; Headache R51 ; Post-traumatic headache, unspecified, not intractable G44.309 and Unspecified intracranial injury without loss of consciousness, sequela S06.9X0S [facility] [id number] [place] [address] 38326- 9474 Jul, [facility] [id number] [place] [address] 62030- 8636 Jul, [facility] [id number] [place] [address] 32459- 0713 Jun, [facility] [id number] [place] [address] 34198- 1550 Jun, Encounter for immunization Z23 [facility] [id number] [place] [address] 20207- 5499 Jun, [facility] [id number] [place] [address] 33906- 5632 May, [facility] [id number] [place] [address] 66393- 1627 May, [facility] [id number] [place] [address] 70401- 6755 Apr, [facility] [id number] [place] [address] 49595- 7162 Apr, [facility] [id number] [place] [address]- 1486 Apr, [facility] [address] [id number] [place] [address]- 4106 Mar, [facility] [place] [facility] [address] [id number] [place] [address]- 3307 Mar, [facility] [place] [facility] [address] [id number] [place] [address]- 3163 Mar, [facility] [place] [facility] [address] [id number] [place] [address]- 1942 Feb, [facility] [place] [facility] [address] [id number] [place] [address]- 4250 Feb, [facility] [place] [facility] [address] [id number] [place] [address]- 1463 January, [facility] [place] [facility] [address] [id number] [place] [address]- 7380 January, [facility] [place] [facility] [address] [id number] [place] [address]- 9676 Dec, [facility] [place] [facility] [address] [id number] [place] [address]- 2378 Dec, [facility] [place] [facility] [address] [id number] [place] [address]- 6417 Nov, [facility] [place] [facility] [address] [id number] [place] [address]- 3674 Nov, [facility] [place] [facility] [address] [id number] [place] [address]- 1058 Nov, [facility] [place] [facility] [address] [id number] [place] [address]- 6444 Nov, [facility] [place] [facility] [address] [id number] [place] [address]- 7071 Nov, [facility] [place] [facility] [address] [id number] [place] [address]- 2473 Nov, [facility] [place] [facility] [address] [id number] [place] [address]- 9910 Nov, [facility] [place] [facility] [address] [id number] [place] [address]- 1063 Nov, [facility] [place] [facility] [address] [id number] [place] [address]- 3434 Nov, [facility] [place] [facility] [address] [id number] [place] [address]- 3967 Nov, [facility] [place] [facility] [address] [id number] [place] [address]- 5075 Nov, [facility] [place] [facility] [address] [id number] [place] [address]- 9695 Nov, [facility] [place] [facility] [address] [id number] [place] [address]- 8545 Nov, [facility] [place] [facility] [address] [id number] [place] [address]- 3323 Nov, [facility] [place] [facility] [address] [id number] [place] [address]- 0844 Oct, [facility] [place] [facility] [address] [id number] [place] [address]- 5515 Oct, [facility] [place] [facility] [address] [id number] [place] [address]- 9715 Oct, [facility] [place] [facility] [address] [id number], [place] [address]- 2427 Oct, [facility] [place] [facility] [address] [id number] [place] [address]- 2173 Sep, [facility] [place] [facility] [address] [id number] [place] [address]- 1579 Sep, [facility] [place] [facility] [address] [id number] [place] [address]- 1080 Sep, [facility] [place] [facility] [address] [id number] [place] [address]- 1525 Sep, [facility] [address] [id number] [place] [address]- 5998 Sep, [facility] [place] [facility] [address] [id number] [place] [address]- 8150 Sep, [facility] [place] [facility] [address] [id number] [place] [address]- 5259 Sep, [facility] [place] [facility] [address] [id number] [place] [address]- 5163 Sep, [facility] [place] [facility] [address] [id number] [place] [address]- 6462 Aug, [facility] [place] [facility] [address] [id number] [place] [address]- 0011 Aug, [facility] [place] [facility] [address] [id number] [place] [address]- 5856 Aug, [facility] [place] [facility] [address] [id number] [place] [address]- 9070 Aug, [facility] [place] [facility] [address] [id number] [place] [address]- 9419 Aug, [facility] [place] [facility] [address] [id number] [place] [address]- 9018 Aug, [facility] [place] [facility] [address] [id number] [place] [address]- 7065 Aug, [facility] [place] [facility] [address] [id number] [place] [address]- 8865 Aug, [facility] [place] [facility] [address] [id number] [place] [address]- 3693 Jul, [facility] [place] [facility] [address] [id number] [place] [address]- 1955 Jul, [facility] [place] [facility] [address] [id number] [place] [address]- 1099 Jul, [facility] [place] [facility] [address] [id number] [place] [address]- 9389 Jul, [facility] [place] [facility] [address] [id number] [place] [address]- 8221 Jul, [facility] [place] [facility] [address] [id number] [place] [address]- 2492 Jul, [facility] [place] [facility] [address] [id number] [place] [address]- 3733 Jul, [facility] [place] [facility] [address] [id number] [place] [address]- 9142 Jul, [facility] [place] [facility] [address] [id number] [place] [address]- 4830 Jul, [facility] [place] [facility] [address] [id number] [place] [address]- 9645 Jul, [facility] [place] [facility] [address] [id number] [place] [address]- 7507 Jul, [facility] [place] [facility] [address] [id number] [place] [address]- 5510 Jun, [facility] [place] [facility] [address] [id number] [place] [address]- 8253 Jun, [facility] [place] [facility] [address] [id number] [place] [address]- 9920 Jun, [facility] [place] [facility] [address] [id number] [place] [address]- 5237 Jun, [facility] [place] [facility] [address] [id number] [place] [address]- 0670 Jun, [facility] [place] [facility] [address] [id number] [place] [address]- 0615 Jun, [facility] [place] [facility] [address] [id number] [place] [address]- 1583 Jun, [facility] [place] [facility] [address] [id number], [place] [address]- 2950 Jun, [facility] [place] [facility] [address] [id number] [place] [address]- 4428 Jun, [facility] [place] [facility] [address] [id number] [place] [address]- 6301 Jun, [facility] [place] [facility] [address] [id number] [place] [address]- 6488 Jun, [facility] [place] [facility] [address] [id number] [place] [address]- 9684 Jun, [facility] [place] [facility] [address] [id number] [place] [address]- 2050 Jun, [facility] [place] [facility] [address] [id number] [place] [address]- 9347 Jun, [facility] [place] [facility] [address] [id number] [place] [address]- 3988 Jun, [facility] [place] [facility] [address] [id number] [place] [address]- 0908 Jun, [facility] [place] [facility] [address] [id number] [place] [address]- 8313 Jun, [facility] [place] [facility] [address] [id number] [place] [address]- 4635 25 May, 2013 [facility] [place] [facility] [address] [id number], [place] [address]- 0823 11 May, 2013 [facility] [place] [facility] [address] [id number], [place] [address]- 7818 11 May, 2013 [facility] [place] [facility] [address] [id number] [place] [address]- 3925 04 Sep, 2013 [facility] [place] [facility] [address] [id number] [place] [address]- 8049 04 Sep, 2013 [facility] [place] [facility] [address] [id number] [place] [address]- 7941 03 Sep, 2013 [facility] [place] [facility] [address] [id number] [place] [address]- 8371 May, [facility] [place] [facility] [address] [id number] [place] [address]- 4507 Apr, [facility] [place] [facility] [address] [id number] [place] [address]- 3018 Apr, [facility] [place] [facility] [address] [id number] [place] [address]- 4522 Apr, [facility] [place] [facility] [address] [id number] [place] [address]- 9101 Apr, [facility] [place] [facility] [address] [id number] [place] [address]- 7439 Apr, [facility] [place] [facility] [address] [id number] [place] [address]- 6139 Apr, [facility] [place] [facility] [address] [id number] [place] [address]- 5352 Apr, [facility] [place] [facility] [address] [id number] [place] [address]- 4333 Apr, [facility] [place] [facility] [address] [id number] [place] [address] Apr, [facility] [place] [facility] [address] [id number] [place] [address] Apr, [facility] [place] [facility] [address] [id number] [place] [address] Apr, [facility] [place] [facility] [address] [id number] [place] [address] Mar, [facility] [place] [facility] [address] [id number] [place] [address] Mar, [facility] [place] [facility] [address] [id number] [place] [address] Mar, [facility] [place] [facility] [address] [id number] [place] [address] Mar, [facility] [place] [facility] [address] [id number] [place] [address] Feb, [facility] [place] [facility] [address] [id number] [place] [address] Feb, [facility] [place] [facility] [address] [id number] [place] [address] Feb, [facility] [place] [facility] [address] [id number] [place] [address] Feb, [facility] [place] [facility] [address] [id number] [place] [address] Feb, [facility] [place] [facility] [address] [id number] [place] [address] Feb, [facility] [place] [facility] [address] [id number] [place] [address]- [address] Feb, [facility] [place] [facility] [address] [id number] [place] [address] Feb, [facility] [place] [facility] [address] [id number] [place] [address] January, [facility] [place] [facility] [address] [id number] [place] [address] January, [facility] [place] [facility] [address] [id number] [place] [address] January, [facility] [place] [facility] [address] [id number] [place] [address] January, [facility] [place] [facility] [address] [id number] [place] [address] Dec, [facility] [place] [facility] [address] [id number] [place] [address] Dec, [facility] [place] [facility] [address] [id number] [place] [address] Dec, [facility] [place] [facility] [address] [id number] [place] [address] Dec, [facility] [address] [id number] [place] [address] Dec, [facility] [place] [facility] [address] [id number] [place] [address] Dec, [facility] [place] [facility] [address] [id number] [place] [address] Dec, [facility] [place] [facility] [address] [id number] [place] [address] Dec, [facility] [place] [facility] [address] [id number] [place] [address] Dec, [facility] [place] [facility] [address] [id number] [place] [address] Dec, [facility] [place] [facility] [address] [id number] [place] [address] Nov, [facility] [place] [facility] [address] [id number] [place] [address] Nov, [facility] [place] [facility] [address] [id number] [place] [address] Nov, [facility] [place] [facility] [address] [id number] [place] [address] Nov, [facility] [place] [facility] [address] [id number] [place] [address] Nov, [facility] [place] [facility] [address] [id number] [place] [address] Oct, [facility] [place] [facility] [address] [id number] [place] [address] Oct, [facility] [place] [facility] [address] [id number] [place] [address] Sep, [facility] [place] [facility] [address] [id number] [place] [address]- [address] Sep, [facility] [place] [facility] [address] [id number] [place] [address] Sep, [facility] [place] [facility] [address] [id number] [place] [address] Sep, [facility] [place] [facility] [address] [id number] [place] [address] Aug, [facility] [place] [facility] [address] [id number] [place] [address]- [address] Aug, [facility] [place] [facility] [address] [id number] [place] [address] Aug, [facility] [place] [facility] [address] [id number] [place] [address] Aug, [facility] [place] [facility] [address] [id number] [place] [address] Aug, [facility] [place] [facility] [address] [id number] [place] [address]- [address]40 Aug, [facility] [place] [facility] [address] [id number] [place] [address] Aug, [facility] [place] [facility] [address] [id number] [place] [address] Aug, [facility] [place] [facility] [address] [facility] [id number] [place] [address] Jul, [facility] [place] [facility] [address] [id number] [place] [address] Jul, [facility] [place] [facility] [address] [id number] [place] [address] 285[address] Jul, [facility] [place] [facility] [address] [id number] [place] [address]853 Jul, [facility] [place] [facility] [address] [id number] [place] [address] Jun, [facility] [place] [facility] [address] [id number] [place] [address] 15 Jun, 2013 [facility] [address] [id number] [place] [address] Jun, [facility] [place] [facility] [address] [id number] [place] [address] 8466 Jun, [facility] [place] [facility] [address] [facility] [id number] [place] [address] 2546 Jun, [facility] [place] [facility] [address] [id number] [place] [address] May, [facility] [place] [facility] [address] [id number] [place] [address] Apr, [facility] [place] [facility] [address] [id number] [place] [address] 4676 Apr, [facility] [place] [facility] [address] [id number] [place] [address] Mar, [facility] [place] [facility] [address] [id number], [place] [address] 118[address] Feb, [facility] [place] [facility] [address] [id number], [place] [address] Feb, [facility] [place] [facility] [address] [facility] [id number], [place] [address] January, [facility] [place] [facility] [address] [id number], [place] [address] January, [facility] [place] [facility] [address] [id number], [place] [address]46 January, [facility] [place] [facility] [address] [id number] [place] [address]- [address]46 Nov, [facility] [place] [facility] [address] [id number], [place] [address] Oct, [facility] [place] [facility] [address] [facility] [id number], [place] [address]- 2546 Oct, [facility] [place] [facility] [address] [id number] [place] [address]106 Oct, [facility] [address] [id number] [place] [address] 7747 Sep, [facility] [address] [id number] [place] [address]041 Sep, [facility] [address] [id number] [place] [address]- [address]357 Aug, [facility] [address] [id number] [place] [address] 6714 Aug, [facility] [address] [id number] [place] [address]366 Jul, [facility] [address] [id number] [place] [address] 8061 Jul, [facility] [address] [id number] [place] [address] 2072 Jul, [facility] [address] [id number] [place] [address]- 0445 Jul, [facility] [address] [id number] [place] [address] 3838 Jul, [facility] [address] [id number] [place] [address] 5981 Jul, [facility] [address] [id number] [place] [address] 9218 Jul, [facility] [address] [id number] [place] [address] 1364 Jul, [facility] [place] [facility] [address] [id number] [place] [address] 2008 Jul, [facility] [place] [facility] [address] [id number] [place] [address]307 Jul, [facility] [address] [id number] [place] [address] 5975 Jul, [facility] [place] [facility] [address] [id number] [place] [address] 2914 Jul, [facility] [place] [facility] [address] [id number] [place] [address]- 0346 Jul, [facility] [place] [facility] [address] [id number] [place] [address]- 5005 Jul, [facility] [place] [facility] [address] [id number] [place] [address]- 1153 Jun, [facility] [place] [facility] [address] [id number] [place] [address] Jun, [facility] [place] [facility] [address] [id number] [place] [address]- 1296 Jun, [facility] [place] [facility] [address] [id number] [place] [address]- 6590 Jun, [facility] [place] [facility] [address] [id number], [place] [address] Jun, [facility] [place] [facility] [address] [id number] [place] [address]- 1005 Jun, [facility] [place] [facility] [address] [facility] [id number], [place] [address]- 3[address] Jun, [facility] [place] [facility] [address] [facility] [id number], [place] [address]- 9878 Apr, [facility] [place] [facility] [address] [id number], [place] [address] 8329 Apr, [facility] [place] [facility] [address] [id number], [place] [address]- 0186 Mar, [facility] [place] [facility] [address] [id number], [place] [address]266 Feb, [facility] [place] [facility] [address] [facility] [id number], [place] [address]- 6796 Feb, [facility] [place] [facility] [address] [id number], [place] [address]- 2539 January, [facility] [address] [id number] [place] [address] 7264 January, [facility] [place] [facility] [address] [id number] [place] [address]- 5831 Dec, [facility] [address] [id number] [place] [address]- 5646 Dec, [facility] [place] [facility] [address] [id number] [place] [address] 3443 Nov, [facility] [address] [id number] [place] [address]- 8873 Oct, [facility] [place] [facility] [address] [id number] [place] [address]- 7856 Oct, [facility] [address] [id number] [place] [address]- 3234 Oct, [facility] [place] [facility] [address] [id number] [place] [address]- 7037 Sep, [facility] [address] [id number] [place] [address]- 9298 Aug, [facility] [address] [facility] [id number] [place] [address] 1850 Aug, [facility] [address] [id number] [place] [address]- 5515 Aug, [facility] [place] [facility] [address] [id number] [place] [address]- 8215 05 Aug, 2011 [facility] [place] [facility] [address] [id number] [place] [address]- 4229 Aug, [facility] [place] [facility] [address] [id number] [place] [address]- 9640 Jul, [facility] [place] [facility] [address] [id number] [place] [address]- 7119 Jul, [facility] [address] [facility] [id number], [place] [address]- 0424 Jul, [facility] [address] [facility] [id number], [place] [address]- 2917 Jul, [facility] [address] [facility] [id number], [place] [address]- 1086 Aug, [facility] [address] [facility] [id number] [place] [address]- 2000 Aug, [facility] [address] [facility] [id number] [place] [address]- 7234 Aug, [facility] [address] [facility] [id number] [place] [address]- 0797 Jun, [facility] [id number] [place] [address]- 4215 Jun, [facility] [id number] [place] [address]- 7517 Jun, [facility] [id number], [place] [address]- 9479 Jun, [facility] [id number] [place] [address]55[address]- 3955 Jun, [facility] [id number], [place] [address]- 0317 Jul, [facility] [id number], [place] [address] 4782 Jul, [facility] [id number], [place] [address]- 9858 Jun, [facility] [id number], [place] [address] 3245 Jun, IMMUNIZATIONS No Known Immunizations SOCIAL HISTORY Never Assessed REASON FOR VISIT Controlled Med Refill/PRN PLAN OF CARE VITAL SIGNS MEDICATIONS Medication Instructions Dosage Frequency Start Date End Date Duration Status Hydrocodone-Acetaminophen 7.5-325 MG Orally 3 times a day 1 tablet as needed for pain 8h 11 Justino, 2018 28 days Active RESULTS No Results PROCEDURES No Known procedures INSTRUCTIONS MEDICATIONS ADMINISTERED No Known Medications MEDICAL (GENERAL) HISTORY Type Description Date Medical History hypertension Medical History IBS Medical History lap band Medical History depression Medical History COPD Surgical History Gallbladder removal Surgical History Lap Band Surgical History Left Arm Repair Surgical History Right Leg Repair x2 Surgical History appendectomy Surgical History cysts removed from hand Surgical History hernia repair Surgical History colonoscopy - unsure of date Surgical History Left Foot Cyst removal 02/2017 Surgical History Horse fell on the PT and he had anum in his head 05/2017 Hospitalization History Surgeries Hospitalization History High bp, nausea 01/2016
--- OUTSIDE RECORDS SUMMARY | 2018-05-26 08:17 | XMS REPORT ---
Author Author LASHAY BLACK Organization 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 Role Phone LASHAY BLACK Unavailable PROBLEMS Type Condition ICD9-CM Code [id number] Code Onset Dates Condition Status SNOMED Code Problem Irritable bowel syndrome with diarrhea K58.0 Active 302803002 Problem Venous vascular malformations Q27.9 Active 971766786 Problem Chronic obstructive pulmonary disease, unspecified COPD type J44.9 Active 04233171 Problem Primary insomnia F51.01 Active 8593946 Problem Migraine without aura and without status migrainosus, not intractable G43.009 Active 252633159 Problem 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 255639093 Problem Hypercholesterolemia E78.00 Active 97233419 Problem Post concussion syndrome F07.81 Active 37655302 Problem Other headache syndrome G44.89 Active 154713742 Problem Decreased renal function N28.9 Active 88999353 Problem Unspecified asthma, uncomplicated J45.909 Active 625663134 Problem Cervicalgia M54.2 Active 09781131 Problem Other chronic pain G89.29 Active 98724790 Problem Hypertension I10 Active 36220477 Problem Idiopathic sleep related nonobstructive alveolar 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 Active 26588716 Problem Anxiety F41.9 Active 18749928 Problem Obstructive sleep apnea G47.33 Active 42303196 ALLERGIES No Information ENCOUNTERS Encounter Location Date Diagnosis [facility] [address] [facility] [id number] [address] Apr, Other chronic pain G89.29 [facility] [address] [id number] [address] Mar, Other chronic pain G89.29 [facility] [address] [facility] [id number], [place] [address] Mar, Decreased renal function N28.9 [facility] [place] [facility] [id number] [place] [address] 17196- 6644 Feb, Xyphoidalgia R07.89 [facility] [id number] [place] [address] 60088- 5130 January, Arthralgia, unspecified joint M25.50 and Other chronic pain G89.29 [place] [address] [address]54- 1375 Dec, Drug-induced constipation K59.03 ; Fatigue, unspecified type R53.83 ; Forgetfulness R68.89 ; Other chronic pain G89.29 and Primary insomnia F51.01 [place] [address] 00203- 8961 Nov, [place] [address] 52248- 2815 Oct, Other chronic pain G89.29 [facility] [id number] [place] [address] 30147- 3939 Sep, Other chronic pain G89.29 [facility] [address] 51829- 7771 Sep, Other chronic pain G89.29 [place] [id number] [place] [address] 58757- 2108 Aug, Other chronic pain G89.29 [facility] [address] 34408- 3438 Jul, Other chronic pain G89.29 ; Encounter for immunization Z23 and Side effects of treatment, initial encounter T88.9XXA [place] [address] 86882- 0965 Jul, Other chronic pain G89.[address] [facility] [id number] [place] [address] 87126 -5799 Jul, [facility] [address] [place] [address]- 4[address] Jul, Encounter for immunization Z23 [place] [address] 34116- 2663 Jun, Hypertension I10 ; Other headache syndrome G44.89 ; Post concussion syndrome F07.81 and Other chronic pain G89.29 [place] [address] 90838- 2041 May, [place] [address] 53275- 0823 May, Migraine without aura and without status migrainosus, not intractable G43.009 [place] [address] 63204- 7293 May, 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 24183- 6222 May, Other chronic pain G89.29 [place] [address] 62940- 9279 Apr, Chronic obstructive pulmonary disease, unspecified COPD type J44.9 [place] [address] 71860- 9469 Apr, Chronic obstructive pulmonary disease, unspecified COPD type J44.9 [place] [address] 73394- 0997 Apr, Other chronic pain G89.29 ; Irritable bowel syndrome with diarrhea K58.0 and Hypercholesterolemia E78.00 [place] [id number] [place] [address] 83269- 9765 Apr, Other chronic pain G89.29 [place] [address] 40880- 6750 Mar, Other chronic pain G89.29 [place] [address] 17656- 5987 Feb, 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 [address] [address] 1695 Feb, Other chronic pain G89.29 [facility] [address] [place] [address] 15872- 5623 Feb, [facility] [id number] [place] [address] 16033- 2484 January, [facility] [id number] [place] [address] 22541- 1154 January, Other chronic pain G89.29 [facility] [id number] [place] [address] 71982- 8166 January, [facility] [id number] [place] [address] 57246- 9223 January, [facility] [id number] [place] [address] 34878- 2047 January, Other chronic pain G89.29 ; Irritable bowel syndrome with diarrhea K58.[address] [facility] [id number] [place] [address] 92485- 1057 January, Other chronic pain G89.29 ; Hypertension I10 ; Irritable bowel syndrome with diarrhea K58.0 ; Chronic obstructive pulmonary disease, unspecified COPD type J44.9 and Venous vascular malformations Q27.[address] [facility] [address] [address] January, Acute otitis externa of right ear, unspecified type H60.501 [facility] [address] [place] [address] 02290- 6778 Dec, Other chronic pain G89.29 [facility] [id number] [place] [address] 54931- 2725 Dec, Hypertension I10 [facility] [id number] [place] [address] 25257- 1117 Nov, Other chronic pain G89.29 [facility] [id number] [place] [address] 82304- 5220 Oct, Other chronic pain G89.29 [facility] [id number] [place] [address] 84889- 8301 Sep, Other chronic pain G89.29 [facility] [address] 90906- 4069 Sep, Hypertension I10 [facility] [id number] [place] [address] 23606- 6145 Sep, Other chronic pain G89.29 [facility] [address] 17756- 6091 Aug, Arthralgia, unspecified joint M25.50 ; Other chronic pain G89.29 ; Obstructive sleep apnea G47.33 and Idiopathic sleep related nonobstructive alveolar 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 [place] [id number] [place] [address] 94604- 7695 Aug, [facility] [address] 77478- 9009 Aug, Other chronic pain G89.29 [facility] [id number] [place] [address] 89792- 7873 Jul, Chronic obstructive pulmonary disease, unspecified COPD type J44.9 and Diarrhea, unspecified type R19.7 [facility] [id number] [place] [address] 96391- 4011 Jul, Other chronic pain G89.29 [facility] [id number] [place] [address] 74756- 1100 Jul, Skin tags, multiple acquired L91.8 [facility] [id number] [place] [address] 08470- 7531 Jun, [facility] [address] 98625- 6828 Jun, Hypertension I10 [place] [id number] [place] [address] 72192- 5655 May, Mouth pain K13.79 and Other chronic pain G89.29 [place] [id number] [place] [address] 92153- 0571 May, [place] [address] 04636- 3427 May, [place] [address] 08613- 0163 May, Pain in right knee M25.561 and Other chronic pain G89.29 [place] [address] 02613- 0673 Apr, Cervicalgia M54.[address] 88900- 2585 Mar, Cervicalgia M54.2 [place] [address] 33572- 4659 Feb, Fever, unspecified fever cause R50.9 and Arthralgia, unspecified joint M25.50 [place] [id number] [place] [address] 65077- 8438 15 Feb, 2016 Hypertension I10 and Chronic pain syndrome G89.4 [place] [id number] [place] [address] 02216- 7491 Feb, Cervicalgia M54.2 [place] [id number] [place] [address] 17857- 7636 January, [place] [address] 88813- 5431 13 Dec, 2015 Chest pain R07.9 ; Family history of early CAD Z82.49 ; Hypertension I10 ; Fatigue R53.83 and History of IBS Z87.19 [place] [id number] [place] [address] 44344- 9696 Dec, [facility] [id number] [place] [address] 27046- 6764 Nov, Allergic rhinitis J30.9 [facility] [address] 55511- 4944 Nov, [facility] [address] 40087- 3398 Nov, Hypertension I10 [address]9 [facility] [address] 88432- 0444 Nov, [place] [address] 22821- 7251 Oct, [place] [address] 67834- 9332 Oct, Chest pain R07.9 ; Family history of early CAD Z82.49 ; Hypertension I10 ; Fatigue R53.83 and History of IBS Z87.19 [place] [id number] [place] [address] 84425- 3171 Oct, [place] [address] 15914- 9044 Oct, Chest pain, unspecified R07.9 [place] [id number] [place] [address] 08420- 0693 08 Oct, 2015 Chest pain, unspecified R07.9 ; Irritable bowel syndrome with diarrhea K58.0 ; Fatigue R53.83 and Degenerative disc disease, cervical M50.30 [facility] [id number] [place] [address] 92674- 8874 Oct, [facility] [id number] [place] [address] 16664- 8825 Oct, [facility] [id number] [place] [address] 05635- 5805 Sep, [facility] [address] [id number] [address]- 8403 Sep, [facility] [id number] [place] [address] 09833- 9877 Aug, [facility] [id number] [place] [address] 63972- 6198 Aug, [facility] [id number] [place] [address] 759430- 5703 Aug, [facility] [id number] [place] [address] 06604- 2478 Jul, Cervicalgia M54.2 ; Headache R51 ; Post-traumatic headache, unspecified, not intractable G44.309 and Unspecified intracranial injury without loss of consciousness, sequela S06.9X0S [facility] [address] [place] [address] 11171- 1404 Jul, [facility] [id number] [place] [address] 82835- 8344 Jul, [facility] [address] [place] [address] 40075- 7410 Jun, [facility] [id number] [place] [address] 26095- 1013 Jun, Encounter for immunization Z23 [facility] [address] [place] [address] 47132- 7850 Jun, [facility] [id number] [place] [address] 64591- 2374 May, [facility] [address] [place] [address] 34144- 7943 May, [facility] [id number] [place] [address] 58781- 5031 Apr, [facility] [address] [place] [address] 32810- 4140 Apr, [facility] [id number] [place] [address]- 1128 Apr, [facility] [address] [id number] [place] [address]- 6068 Mar, [facility] [place] [facility] [address] [id number] [place] [address]- 5490 Mar, [facility] [place] [facility] [address] [id number] [place] [address]- 5900 Mar, [facility] [place] [facility] [address] [id number] [place] [address]- 7816 Feb, [facility] [place] [facility] [address] [id number] [place] [address]- 4198 Feb, [facility] [place] [facility] [address] [id number] [place] [address]- 8366 January, [facility] [place] [facility] [address] [id number] [place] [address]- 0388 January, [facility] [place] [facility] [address] [id number] [place] [address]- 6253 Dec, [facility] [place] [facility] [address] [id number] [place] [address]- 9980 Dec, [facility] [place] [facility] [address] [id number] [place] [address]- 1987 Nov, [facility] [place] [facility] [address] [id number] [place] [address]- 8757 Nov, [facility] [place] [facility] [address] [id number] [place] [address]- 5704 Nov, [facility] [place] [facility] [address] [id number] [place] [address]- 6089 Nov, [facility] [place] [facility] [address] [id number] [place] [address]- 4602 Nov, [facility] [place] [facility] [address] [id number] [place] [address]- 6617 Nov, [facility] [place] [facility] [address] [id number] [place] [address]- 8544 Nov, [facility] [place] [facility] [address] [id number] [place] [address]- 3835 Nov, [facility] [place] [facility] [address] [id number] [place] [address]- 5873 Nov, [facility] [place] [facility] [address] [id number] [place] [address]- 8231 Nov, [facility] [place] [facility] [address] [id number] [place] [address]- 5380 Nov, [facility] [place] [facility] [address] [id number] [place] [address]- 6436 Nov, [facility] [place] [facility] [address] [id number] [place] [address]- 3757 Nov, [facility] [place] [facility] [address] [id number] [place] [address]- 9984 Nov, [facility] [place] [facility] [address] [id number] [place] [address]- 0832 Oct, [facility] [place] [facility] [address] [id number] [place] [address]- 2979 Oct, [facility] [place] [facility] [address] [id number] [place] [address]- 5299 Oct, [facility] [place] [facility] [address] [id number], [place] [address]- 6252 Oct, [facility] [place] [facility] [address] [id number] [place] [address]- 6960 Sep, [facility] [place] [facility] [address] [id number] [place] [address]- 5784 Sep, [facility] [place] [facility] [address] [id number] [place] [address]- 3453 Sep, [facility] [place] [facility] [address] [id number] [place] [address]- 0335 Sep, [facility] [address] [id number] [place] [address]- 7738 Sep, [facility] [place] [facility] [address] [id number] [place] [address]- 1474 Sep, [facility] [place] [facility] [address] [id number] [place] [address]- 3597 Sep, [facility] [place] [facility] [address] [id number] [place] [address]- 6212 Sep, [facility] [place] [facility] [address] [id number] [place] [address]- 4649 Aug, [facility] [place] [facility] [address] [id number] [place] [address]- 2377 Aug, [facility] [place] [facility] [address] [id number] [place] [address]- 3703 Aug, [facility] [place] [facility] [address] [id number] [place] [address]- 8494 Aug, [facility] [place] [facility] [address] [id number] [place] [address]- 8233 Aug, [facility] [place] [facility] [address] [id number] [place] [address]- 6428 Aug, [facility] [place] [facility] [address] [id number] [place] [address]- 6956 Aug, [facility] [place] [facility] [address] [id number] [place] [address]- 1595 Aug, [facility] [place] [facility] [address] [id number] [place] [address]- 2696 Jul, [facility] [place] [facility] [address] [id number] [place] [address]- 0887 Jul, [facility] [place] [facility] [address] [id number] [place] [address]- 4659 Jul, [facility] [place] [facility] [address] [id number] [place] [address]- 7839 Jul, [facility] [place] [facility] [address] [id number] [place] [address]- 4211 Jul, [facility] [place] [facility] [address] [id number] [place] [address]- 9235 Jul, [facility] [place] [facility] [address] [id number] [place] [address]- 5787 Jul, [facility] [place] [facility] [address] [id number] [place] [address]- 5531 Jul, [facility] [place] [facility] [address] [id number] [place] [address]- 6242 Jul, [facility] [place] [facility] [address] [id number] [place] [address]- 9327 Jul, [facility] [place] [facility] [address] [id number] [place] [address]- 3720 Jul, [facility] [place] [facility] [address] [id number] [place] [address]- 8661 Jun, [facility] [place] [facility] [address] [id number] [place] [address]- 2577 Jun, [facility] [place] [facility] [address] [id number] [place] [address]- 9450 Jun, [facility] [place] [facility] [address] [id number] [place] [address]- 4202 Jun, [facility] [place] [facility] [address] [id number] [place] [address]- 8643 Jun, [facility] [place] [facility] [address] [id number] [place] [address]- 3576 Jun, [facility] [place] [facility] [address] [id number] [place] [address]- 9709 Jun, [facility] [place] [facility] [address] [id number], [place] [address]- 6578 Jun, [facility] [place] [facility] [address] [id number] [place] [address]- 8884 Jun, [facility] [place] [facility] [address] [id number] [place] [address]- 9034 Jun, [facility] [place] [facility] [address] [id number] [place] [address]- 8697 Jun, [facility] [place] [facility] [address] [id number] [place] [address]- 9128 Jun, [facility] [place] [facility] [address] [id number] [place] [address]- 5326 Jun, [facility] [place] [facility] [address] [id number] [place] [address]- 0487 Jun, [facility] [place] [facility] [address] [id number] [place] [address]- 9971 Jun, [facility] [place] [facility] [address] [id number] [place] [address]- 7381 Jun, [facility] [place] [facility] [address] [id number] [place] [address]- 7707 Jun, [facility] [place] [facility] [address] [id number] [place] [address]- 2113 25 May, 2013 [facility] [place] [facility] [address] [id number], [place] [address]- 9185 11 May, 2013 [facility] [place] [facility] [address] [id number], [place] [address]- 7769 11 May, 2013 [facility] [place] [facility] [address] [id number] [place] [address]- 0695 04 Sep, 2013 [facility] [place] [facility] [address] [id number] [place] [address]- 7032 04 Sep, 2013 [facility] [place] [facility] [address] [id number] [place] [address]- 3615 03 Sep, 2013 [facility] [place] [facility] [address] [id number] [place] [address] May, [facility] [place] [facility] [address] [id number] [place] [address] Apr, [facility] [place] [facility] [address] [id number] [place] [address] Apr, [facility] [place] [facility] [address] [id number] [place] [address] Apr, [facility] [place] [facility] [address] [id number] [place] [address] Apr, [facility] [place] [facility] [address] [id number] [place] [address] Apr, [facility] [place] [facility] [address] [id number] [place] [address] Apr, [facility] [place] [facility] [address] [id number] [place] [address] Apr, [facility] [place] [facility] [address] [id number] [place] [address] Apr, [facility] [place] [facility] [address] [id number] [place] [address] Apr, [facility] [place] [facility] [address] [id number] [place] [address] Apr, [facility] [place] [facility] [address] [id number] [place] [address] Apr, [facility] [place] [facility] [address] [id number] [place] [address] Mar, [facility] [place] [facility] [address] [id number] [place] [address] Mar, [facility] [place] [facility] [address] [id number] [place] [address] Mar, [facility] [place] [facility] [address] [id number] [place] [address] Mar, [facility] [place] [facility] [address] [id number] [place] [address] Feb, [facility] [place] [facility] [address] [id number] [place] [address] Feb, [facility] [place] [facility] [address] [id number] [place] [address] Feb, [facility] [place] [facility] [address] [id number] [place] [address] Feb, [facility] [place] [facility] [address] [id number] [place] [address] Feb, [facility] [place] [facility] [address] [id number] [place] [address] Feb, [facility] [place] [facility] [address] [id number] [place] [address] Feb, [facility] [place] [facility] [address] [id number] [place] [address] Feb, [facility] [place] [facility] [address] [id number] [place] [address] January, [facility] [place] [facility] [address] [id number] [place] [address] January, [facility] [place] [facility] [address] [id number] [place] [address] January, [facility] [place] [facility] [address] [id number] [place] [address] January, [facility] [place] [facility] [address] [id number] [place] [address] Dec, [facility] [place] [facility] [address] [id number] [place] [address] Dec, [facility] [place] [facility] [address] [id number] [place] [address] Dec, [facility] [place] [facility] [address] [id number] [place] [address] Dec, [facility] [address] [id number] [place] [address] Dec, [facility] [place] [facility] [address] [id number] [place] [address] Dec, [facility] [place] [facility] [address] [id number] [place] [address] Dec, [facility] [place] [facility] [address] [id number] [place] [address] Dec, [facility] [place] [facility] [address] [id number] [place] [address] Dec, [facility] [place] [facility] [address] [id number] [place] [address] Dec, [facility] [place] [facility] [address] [id number] [place] [address] Nov, [facility] [place] [facility] [address] [id number] [place] [address] Nov, [facility] [place] [facility] [address] [id number] [place] [address] Nov, [facility] [place] [facility] [address] [id number] [place] [address] Nov, [facility] [place] [facility] [address] [address] [id number] [place] [address] Nov, [facility] [place] [facility] [address] [id number] [place] [address] Oct, [facility] [place] [facility] [address] [id number] [place] [address] Oct, [facility] [place] [facility] [address] [id number] [place] [address] Sep, [facility] [place] [facility] [address] [id number] [place] [address] Sep, [facility] [place] [facility] [address] [id number] [place] [address] Sep, [facility] [place] [facility] [address] [id number] [place] [address] Sep, [facility] [place] [facility] [address] [id number] [place] [address] Aug, [facility] [place] [facility] [address] [id number] [place] [address] Aug, [facility] [place] [facility] [address] [id number] [place] [address] Aug, [facility] [place] [facility] [address] [id number] [place] [address] Aug, [facility] [place] [facility] [address] [id number] [place] [address] Aug, [facility] [place] [facility] [address] [id number] [place] [address] 9420 Aug, [facility] [place] [facility] [address] [id number] [place] [address] 4626 Aug, [facility] [place] [facility] [address] [id number] [place] [address] Aug, [facility] [place] [facility] [address] [facility] [id number] [place] [address] Jul, [facility] [place] [facility] [address] [id number] [place] [address] 6684 Jul, [facility] [place] [facility] [address] [id number] [place] [address] 9549 Jul, [facility] [place] [facility] [address] [id number] [place] [address] Jul, [facility] [place] [facility] [address] [id number] [place] [address] Jun, [facility] [place] [facility] [address] [id number] [place] [address] 15 Jun, 2013 [facility] [address] [id number] [place] [address] Jun, [facility] [place] [facility] [address] [id number] [place] [address] 3096 Jun, [facility] [place] [facility] [address] [facility] [id number] [place] [address] 2546 Jun, [facility] [place] [facility] [address] [id number] [place] [address] 5788 May, [facility] [place] [facility] [address] [id number] [place] [address]- [address] Apr, [facility] [place] [facility] [address] [id number] [place] [address] 9666 Apr, [facility] [place] [facility] [address] [id number] [place] [address] 48[address] Mar, [facility] [place] [facility] [address] [id number], [place] [address] Feb, [facility] [place] [facility] [address] [id number], [place] [address] Feb, [facility] [place] [facility] [address] [facility] [id number][place] [address] January, [facility] [place] [facility] [address] [id number], [place] [address] January, [facility] [place] [facility] [address] [id number], [place] [address] January, [facility] [place] [facility] [address] [id number] [place] [address]46 Nov, [facility] [place] [facility] [address] [id number], [place] [address] Oct, [facility] [place] [facility] [address] [facility] [id number], [place] [address] Oct, [facility] [place] [facility] [address] [id number] [place] [address]85 Oct, [facility] [address] [id number] [place] [address]161 Sep, [facility] [address] [id number] [place] [address] Sep, [facility] [address] [id number] [place] [address] 0000 Aug, [facility] [address] [id number] [place] [address] 0744 Aug, [facility] [address] [id number] [place] [address]- 0068 Jul, [facility] [address] [id number] [place] [address] 1637 Jul, [facility] [address] [id number] [place] [address]- 0549 Jul, [facility] [address] [id number] [place] [address] 5[address] Jul, [facility] [address] [id number] [place] [address] 74[address] Jul, [facility] [address] [id number] [place] [address] 7588 Jul, [facility] [address] [id number] [place] [address]- 4847 Jul, [facility] [address] [id number] [place] [address] 5857 Jul, [facility] [place] [facility] [address] [id number] [place] [address]- 8787 Jul, [facility] [place] [facility] [address] [id number] [place] [address] 4544 Jul, [facility] [address] [id number] [place] [address]- 1875 Jul, [facility] [place] [facility] [address] [id number] [place] [address]- 4582 Jul, [facility] [place] [facility] [address] [id number] [place] [address]- 4116 Jul, [facility] [place] [facility] [address] [id number] [place] [address]- 7046 Jul, [facility] [place] [facility] [address] [id number] [place] [address] 8930 Jun, [facility] [place] [facility] [address] [id number] [place] [address] Jun, [facility] [place] [facility] [address] [id number] [place] [address]- 2286 Jun, [facility] [place] [facility] [address] [id number] [place] [address]- 1328 Jun, [facility] [place] [facility] [address] [id number], [place] [address] Jun, [facility] [place] [facility] [address] [id number] [place] [address]- 7281 Jun, [facility] [place] [facility] [address] [facility] [id number], [place] [address]- 4338 Jun, [facility] [place] [facility] [address] [facility] [id number], [place] [address] 1378 Apr, [facility] [place] [facility] [address] [id number], [place] [address]- 9763 Apr, [facility] [place] [facility] [address] [id number], [place] [address]- 4708 Mar, [facility] [place] [facility] [address] [id number], [place] [address]- 7016 Feb, [facility] [place] [facility] [address] [facility] [id number], [place] [address]- 6146 Feb, [facility] [place] [facility] [address] [id number], [place] [address]- 8191 January, [facility] [address] [id number] [place] [address]- 1059 January, [facility] [place] [facility] [address] [id number] [place] [address]- 0560 Dec, [facility] [address] [id number] [place] [address]- 0046 Dec, [facility] [place] [facility] [address] [id number] [place] [address]- 5693 Nov, [facility] [address] [id number] [place] [address] 1971 Oct, [facility] [place] [facility] [address] [id number] [place] [address] 1956 Oct, [facility] [address] [id number] [place] [address]- 3225 Oct, [facility] [place] [facility] [address] [id number] [place] [address]- 0936 Sep, [facility] [address] [id number] [place] [address]- 8332 Aug, [facility] [address] [facility] [id number] [place] [address]- 8568 Aug, [facility] [address] [id number] [place] [address]- 3907 Aug, [facility] [place] [facility] [address] [id number] [place] [address]- 8165 05 Aug, 2011 [facility] [place] [facility] [address] [id number] [place] [address]- 2490 Aug, [facility] [place] [facility] [address] [id number] [place] [address]- 4322 Jul, [facility] [place] [facility] [address] [id number] [place] [address]- [address] Jul, [facility] [address] [facility] [id number], [place] [address] Jul, [facility] [address] [facility] [id number] [address]99 Jul, [facility] [address] [facility] [id number] [address] 8659 Aug, [facility] [address] [facility] [id number] [place] [address]- 2784 Aug, [facility] [address] [facility] [id number] [place] [address]- 1543 Aug, [facility] [id number] [place] [address]- 9772 Jun, [facility] [id number] [place] [address]- 9366 Jun, [facility] [id number] [place] [address]- 5392 Jun, [facility] [id number] [address]15 Jun, [facility] [id number] [place] [address]- 6686 Jun, [facility] [address] [address] 0382 Jul, [facility] [address] [address] 7033 Jul, [facility] [address] [id number], [place] [address] Jun, [facility] [address] [address] 8773 Jun, IMMUNIZATIONS No Known Immunizations SOCIAL HISTORY Never Assessed REASON FOR VISIT lab order PLAN OF CARE VITAL SIGNS MEDICATIONS Unknown Medications RESULTS No Results PROCEDURES No Known [...]
--- OUTSIDE RECORDS SUMMARY | 2018-05-26 08:18 | XMS REPORT ---
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 Name Role Phone LASHAY BLACK Unavailable PROBLEMS Type Condition ICD9-CM Code CLM97-PF Code Onset Dates Condition Status SNOMED Code Problem Irritable bowel syndrome with diarrhea K58.0 Active 311618137 Problem Venous vascular malformations Q27.9 Active 788451177 Problem Chronic obstructive pulmonary disease, unspecified COPD type J44.9 Active 76074367 Problem Primary insomnia F51.01 Active 2603448 Problem Migraine without aura and without status migrainosus, not intractable G43.009 Active 978104739 Problem 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 487696536 Problem Hypercholesterolemia E78.00 Active 17999846 Problem Post concussion syndrome F07.81 Active 71885999 Problem Other headache syndrome G44.89 Active 475376802 Problem Decreased renal function N28.9 Active 67757771 Problem Unspecified asthma, uncomplicated J45.909 Active 998189361 Problem Cervicalgia M54.2 Active 31031125 Problem Other chronic pain G89.29 Active 03588364 Problem Hypertension I10 Active 63625148 Problem Idiopathic sleep related nonobstructive alveolar 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 Active 44180487 Problem Anxiety F41.9 Active 37686298 Problem Obstructive sleep apnea G47.33 Active 83992949 ALLERGIES Substance Reaction Event Type Date Status Prevagen Unknown Drug Allergy Feb, Active Penicillin V Potassium Unknown Drug Allergy Feb, Active Cardura XL Unknown Drug Allergy Feb, Active ENCOUNTERS Encounter Location Date Diagnosis [facility] [address] [facility] [id number] [address] Apr, Other chronic pain G89.29 [facility] [address] [facility] [id number] [place] [address] 70[address] Mar, Other chronic pain G89.29 [facility] [id number] [place] [address] 31459- 6743 Mar, Decreased renal function N28.9 [facility] [id number] [place] [address] 00924- 2903 Feb, Xyphoidalgia R07.89 [facility] [id number] [place] [address] 93014- 2689 January, Arthralgia, unspecified joint M25.50 and Other chronic pain G89.29 [facility] [id number] [place] [address] 46689- 6380 Dec, Drug-induced constipation K59.03 ; Fatigue, unspecified type R53.83 ; Forgetfulness R68.89 ; Other chronic pain G89.29 and Primary insomnia F51.01 [facility] [id number] [place] [address] 96313- 8536 Nov, [facility] [id number] [place] [address] 57084- 7696 Oct, Other chronic pain G89.29 [facility] [id number] [place] [address] 83508- 7854 Sep, Other chronic pain G89.29 [facility] [id number] [place] [address] 24681- 7263 Sep, Other chronic pain G89.29 [facility] [id number] [place] [address] 36768- 5127 Aug, Other chronic pain G89.29 [facility] [id number] [place] [address] 10946- 2271 Jul, Other chronic pain G89.29 ; Encounter for immunization Z23 and Side effects of treatment, initial encounter T88.9XXA [facility] [id number] [place] [address] 59108- 6827 07 Jul, 2017 Other chronic pain G89.29 [facility] [id number] [place] [address] 70161 -2023 Jul, [place] [address] 48606- 0439 Jul, Encounter for immunization Z23 [place] [id number] [place] [address] 60366- 5588 Jun, Hypertension I10 ; Other headache syndrome G44.89 ; Post concussion syndrome F07.81 and Other chronic pain G89.29 [place] [address] 25169- 5359 May, [place] [address] 08016- 2449 May, Migraine without aura and without status migrainosus, not intractable G43.009 [place] [id number] [place] [address] 51613- 5320 May, 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 [place] [id number] [place] [address] 43385- 8363 May, Other chronic pain G89.29 [place] [address] 54717- 5905 Apr, Chronic obstructive pulmonary disease, unspecified COPD type J44.9 [place] [id number] [place] [address] 20000- 3189 Apr, Chronic obstructive pulmonary disease, unspecified COPD type J44.9 [place] [id number] [place] [address] 11082- 1490 Apr, Other chronic pain G89.29 ; Irritable bowel syndrome with diarrhea K58.0 and Hypercholesterolemia E78.00 [place] [id number] [place] [address] 40078- 6278 Apr, Other chronic pain G89.29 [place] [id number] [place] [address] 70976- 9754 Mar, Other chronic pain G89.29 [facility] [id number] [address] 4626 Feb, 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 [facility] [id number] [place] [address] 27363- 2988 Feb, Other chronic pain G89.29 [facility] [id number] [place] [address] 77823- 7923 Feb, [facility] [id number] [place] [address] 16180- 2058 January, [place] [id number] [place] [address] 06533- 1889 January, Other chronic pain G89.29 [facility] [id number] [place] [address] 45620- 3114 January, [facility] [id number] [place] [address] 86137- 8847 January, [facility] [id number] [place] [address] 67764- 5131 January, Other chronic pain G89.29 ; Irritable bowel syndrome with diarrhea K58.0 and Hypercholesterolemia E78.00 [facility] [id number] [place] [address] 38647- 3781 January, Other chronic pain G89.29 ; Hypertension I10 ; Irritable bowel syndrome with diarrhea K58.0 ; Chronic obstructive pulmonary disease, unspecified COPD type J44.9 and Venous vascular malformations Q27.9 [facility] [id number] [place] [address] 33227 -8441 January, Acute otitis externa of right ear, unspecified type H60.501 [facility] [id number] [place] [address] 96267- 7781 Dec, Other chronic pain G89.29 [facility] [id number] [place] [address] 16614- 8786 Dec, Hypertension I10 [facility] [id number] [place] [address] 95869- 7930 Nov, Other chronic pain G89.29 [facility] [id number] [place] [address] 90285- 3975 Oct, Other chronic pain G89.29 [facility] [id number] [place] [address] 14391- 7360 Sep, Other chronic pain G89.29 [facility] [id number] [place] [address] 78949- 6111 Sep, Hypertension I10 [facility] [address] 83587- 9195 Sep, Other chronic pain G89.29 [facility] [id number] [place] [address] 71824- 2963 Aug, Arthralgia, unspecified joint M25.50 ; Other chronic pain G89.29 ; Obstructive sleep apnea G47.33 and Idiopathic sleep related nonobstructive alveolar 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 [place] [id number] [place] [address] 57963- 1529 Aug, [facility] [id number] [place] [address] 18396- 6935 Aug, Other chronic pain G89.29 [facility] [id number] [place] [address] 07230- 6509 Jul, Chronic obstructive pulmonary disease, unspecified COPD type J44.9 and Diarrhea, unspecified type R19.7 [facility] [id number] [place] [address] 39545- 4607 Jul, Other chronic pain G89.29 [facility] [id number] [place] [address] 79203- 5279 Jul, Skin tags, multiple acquired L91.8 [facility] [id number] [place] [address] 88478- 5455 Jun, [facility] [id number] [place] [address] 37765- 9279 Jun, Hypertension I10 [place] [id number] [place] [address] 88599- 9922 May, Mouth pain K13.79 and Other chronic pain G89.29 [place] [id number] [place] [address] 99394- 1927 May, [place] [id number] [place] [address] 42969- 1511 May, [place] [address] 50712- 2907 May, Pain in right knee M25.561 and Other chronic pain G89.29 [place] [id number] [place] [address] 08673- 3640 Apr, Cervicalgia M54.2 [place] [id number] [place] [address] 94491- 1717 Mar, Cervicalgia M54.2 [place] [address] 21548- 6560 Feb, Fever, unspecified fever cause R50.9 and Arthralgia, unspecified joint M25.50 [place] [id number] [place] [address] 84017- 1564 Feb, Hypertension I10 and Chronic pain syndrome G89.4 [place] [id number] [place] [address] 78207- 3599 08 Feb, 2016 Cervicalgia M54.2 [place] [id number] [place] [address] 65035- 9844 January, [place] [id number] [place] [address] 84352- 6413 13 Dec, 2015 Chest pain R07.9 ; Family history of early CAD Z82.49 ; Hypertension I10 ; Fatigue R53.83 and History of IBS Z87.19 [place] [id number] [place] [address] 55452- 7961 Dec, [place] [address] 03044- 5739 Nov, Allergic rhinitis J30.9 [place] [address] 50414- 0305 Nov, [place] [address] 89873- 7752 Nov, Hypertension I10 and Anxiety F41.9 [place] [address] 30159- 6315 Nov, [place] [address] 52699- 2494 Oct, [place] [address] 03642- 1577 Oct, Chest pain R07.9 ; Family history of early CAD Z82.49 ; Hypertension I10 ; Fatigue R53.83 and History of IBS Z87.19 [place] [address] 62794- 0193 Oct, [place] [id number] [place] [address] 87827- 7352 Oct, Chest pain, unspecified R07.9 [place] [address] 25493- 9442 Oct, Chest pain, unspecified R07.9 ; Irritable bowel syndrome with diarrhea K58.0 ; Fatigue R53.83 and Degenerative disc disease, cervical M50.30 [place] [id number] [place] [address] 42757- 1303 08 Oct, 2015 [place] [address] 00084- 4503 Oct, [place] [id number] [place] [address] 96166- 7243 Sep, [facility] [id number] [place] [address] 27258- 3180 Sep, [facility] [id number] [place] [address] 38796- 6941 Aug, [facility] [id number] [place] [address] 19840- 1627 Aug, [facility] [id number] [place] [address] 64436- 8005 Aug, [facility] [id number] [place] [address] 93983- 0779 Jul, Cervicalgia M54.2 ; Headache R51 ; Post-traumatic headache, unspecified, not intractable G44.309 and Unspecified intracranial injury without loss of consciousness, sequela S06.9X0S [facility] [id number] [place] [address] 61151- 4502 Jul, [facility] [id number] [place] [address] 39030- 3655 Jul, [facility] [id number] [place] [address] 91120- 6795 Jun, [facility] [id number] [place] [address] 46983- 9759 Jun, Encounter for immunization Z23 [facility] [id number] [place] [address] 29039- 1200 Jun, [facility] [id number] [place] [address] 13715- 5451 May, [facility] [id number] [place] [address] [id number]- 6471 May, [facility] [id number] [place] [address] 86401- 6664 Apr, [facility] [place] [facility] [address] [id number] [place] [address]- 3630 Apr, [facility] [place] [facility] [address] [id number] [place] [address]- 8735 Apr, [facility] [place] [facility] [address] [id number] [place] [address]- 9196 Mar, [facility] [place] [facility] [address] [id number] [place] [address]- 3940 Mar, [facility] [place] [facility] [address] [id number] [place] [address]- 6981 Mar, [facility] [place] [facility] [address] [id number] [place] [address]- 4799 Feb, [facility] [place] [facility] [address] [id number] [place] [address]- 9836 Feb, [facility] [place] [facility] [address] [id number] [place] [address]- 2918 January, [facility] [place] [facility] [address] [id number] [place] [address]- 8393 January, [facility] [place] [facility] [address] [id number] [place] [address]- 0937 Dec, [facility] [place] [facility] [address] [id number] [place] [address]- 7679 Dec, [facility] [place] [facility] [address] [id number] [place] [address]- 9187 Nov, [facility] [place] [facility] [address] [id number] [place] [address]- 3830 Nov, [facility] [place] [facility] [address] [id number] [place] [address]- 2415 Nov, [facility] [place] [facility] [address] [id number] [place] [address]- 2387 Nov, [facility] [place] [facility] [address] [id number] [place] [address]- 8818 Nov, [facility] [place] [facility] [address] [id number] [place] [address]- 6123 Nov, [facility] [place] [facility] [address] [id number] [place] [address]- 3605 Nov, [facility] [place] [facility] [address] [id number] [place] [address]- 1203 Nov, [facility] [place] [facility] [address] [id number] [place] [address]- 4757 Nov, [facility] [place] [facility] [address] [id number] [place] [address]- 7326 Nov, [facility] [place] [facility] [address] [id number] [place] [address]- 1953 Nov, [facility] [place] [facility] [address] [id number] [place] [address]- 7392 Nov, [facility] [place] [facility] [address] [id number] [place] [address]- 6616 Nov, [facility] [place] [facility] [address] [id number] [place] [address]- 1143 Nov, [facility] [place] [facility] [address] [id number] [place] [address]- 3764 Oct, [facility] [place] [facility] [address] [id number] [place] [address]- 8277 Oct, [facility] [place] [facility] [address] [id number] [place] [address]- 6179 Oct, [facility] [place] [facility] [address] [id number] [place] [address]- 1965 Oct, [facility] [place] [facility] [address] [id number] [place] [address]- 6049 Sep, [facility] [place] [facility] [address] [id number] [place] [address]- 7768 Sep, [facility] [place] [facility] [address] [id number] [place] [address]- 1982 Sep, [facility] [address] [id number] [place] [address]- 1766 Sep, [facility] [address] [id number] [place] [address]- 5348 Sep, [facility] [address] [id number] [place] [address]- 9523 Sep, [facility] [address] [id number] [place] [address]- 3081 Sep, [facility] [address] [id number] [place] [address]- 7384 Sep, [facility] [address] [id number] [place] [address]- 0371 Aug, [facility] [address] [id number] [place] [address]- 6255 Aug, [facility] [address] [id number] [place] [address]- 1056 Aug, [facility] [address] [id number] [place] [address]- 0182 Aug, [facility] [address] [id number] [place] [address]- 0450 Aug, [facility] [place] [facility] [address] [id number] [place] [address]- 1169 Aug, [facility] [address] [id number] [place] [address]- 3335 Aug, [facility] [place] [facility] [address] [id number] [place]36 Aug, [facility] [place] [facility] [address] [id number] [place] [address]- 9580 Jul, [facility] [place] [facility] [address] [id number] [place] [address]- 6915 Jul, [facility] [place] [facility] [address] [id number] [place] [address]- 3047 Jul, [facility] [place] [facility] [address] [id number] [place] [address]- 1586 Jul, [facility] [place] [facility] [address] [id number] [place] [address]- 4031 Jul, [facility] [place] [facility] [address] [id number] [place] [address]- 8836 Jul, [facility] [place] [facility] [address] [id number] [place] [address]- 1184 Jul, [facility] [place] [facility] [address] [id number] [place] [address]- 2716 Jul, [facility] [place] [facility] [address] [id number] [place] [address]- 3328 Jul, [facility] [place] [facility] [address] [id number] [place] [address]- 7564 Jul, [facility] [place] [facility] [address] [id number] [place] [address]- 3362 Jul, [facility] [place] [facility] [address] [id number] [place] [address]- 8940 Jun, [facility] [place] [facility] [address] [id number] [place] [address]- 0003 Jun, [facility] [place] [facility] [address] [id number] [place] [address]- 1502 Jun, [facility] [place] [facility] [address] [id number] [place] [address]- 3743 Jun, [facility] [place] [facility] [address] [id number] [place] [address]- 5087 Jun, [facility] [place] [facility] [address] [id number] [place] [address]- 9944 Jun, [facility] [place] [facility] [address] [id number] [place] [address]- 1895 Jun, [facility] [place] [facility] [address] [id number] [place] [address]- 1927 Jun, [facility] [place] [facility] [address] [id number] [place] [address]- 3908 Jun, [facility] [place] [facility] [address] [id number] [place] [address]- 4374 24 Jun, 2014 [facility] [place] [facility] [address] [id number] [place] [address]- 8997 17 Jun, 2014 [facility] [place] [facility] [address] [id number] [place] [address]- 1494 Jun, [facility] [place] [facility] [address] [id number] [place] [address]- 4559 Jun, [facility] [place] [facility] [address] [id number] [place] [address]- 7540 Jun, [facility] [place] [facility] [address] [id number] [place] [address]- 8396 Jun, [facility] [place] [facility] [address] [id number] [place] [address]- 1280 Jun, [facility] [place] [facility] [address] [facility] [id number] [place] [address]- 6731 07 Jun, 2014 [facility] [place] [facility] [address] [id number] [place] [address]- 6962 25 May, 2013 [facility] [place] [facility] [address] [id number] [place] [address]- 8923 11 May, 2013 [facility] [place] [facility] [address] [id number] [place] [address] 11 May, 2013 [facility] [place] [facility] [address] [id number] [place] [address] 04 Sep, 2013 [facility] [place] [facility] [address] [facility] [id number] [place] [address] 04 Sep, 2013 [facility] [place] [facility] [address] [id number] [place] [address] May, [facility] [place] [facility] [address] [id number] [place] [address] May, [facility] [place] [facility] [address] [id number] [place] [address] Apr, [facility] [place] [facility] [address] [id number] [place] [address] Apr, [facility] [place] [facility] [address] [id number] [place] [address] Apr, [facility] [place] [facility] [address] [id number] [place] [address] Apr, [facility] [place] [facility] [address] [id number] [place] [address] Apr, [facility] [place] [facility] [address] [id number] [place] [address] Apr, [facility] [place] [facility] [address] [id number] [place] [address] Apr, [facility] [place] [facility] [address] [id number] [place] [address] Apr, [facility] [place] [facility] [address] [id number] [place] [address] Apr, [facility] [place] [facility] [address] [id number] [place] [address] Apr, [facility] [place] [facility] [address] [id number] [place] [address] Apr, [facility] [place] [facility] [address] [id number] [place] [address] Mar, [facility] [place] [facility] [address] [id number] [place] [address] Mar, [facility] [place] [facility] [address] [id number] [place] [address] Mar, [facility] [place] [facility] [address] [id number] [place] [address] Mar, [facility] [place] [facility] [address] [id number] [place] [address] Feb, [facility] [place] [facility] [address] [id number] [place] [address] Feb, [facility] [place] [facility] [address] [id number] [place] [address] Feb, [facility] [place] [facility] [address] [id number] [place] [address] Feb, [facility] [place] [facility] [address] [id number] [place] [address] Feb, [facility] [place] [facility] [address] [id number] [place] [address] Feb, [facility] [place] [facility] [address] [id number] [place] [address] Feb, [facility] [place] [facility] [address] [id number] [place] [address] Feb, [facility] [place] [facility] [address] [id number] [place] [address] January, [facility] [place] [facility] [address] [id number] [place] [address] January, [facility] [place] [facility] [address] [id number] [place] [address] January, [facility] [place] [facility] [address] [id number] [place] [address] January, [facility] [place] [facility] [address] [id number] [place] [address] Dec, [facility] [place] [facility] [address] [id number] [place] [address] Dec, [facility] [place] [facility] [address] [id number] [place] [address] Dec, [facility] [place] [facility] [address] [id number] [place] [address] Dec, [facility] [place] [facility] [address] [id number] [place] [address] Dec, [facility] [place] [facility] [address] [id number] [place] [address] Dec, [facility] [place] [facility] [address] [id number] [place] [address] Dec, [facility] [place] [facility] [address] [id number] [place] [address] Dec, [facility] [place] [facility] [address] [id number] [place] [address] Dec, [facility] [place] [facility] [address] [id number] [place] [address] Dec, [facility] [place] [facility] [address] [id number] [place] [address] Nov, [facility] [place] [facility] [address] [id number] [place] [address] Nov, [facility] [place] [facility] [address] [id number] [place] [address] Nov, [facility] [place] [facility] [address] [id number] [place] [address] Nov, [facility] [place] [facility] [address] [id number] [place] [address] Nov, [facility] [place] [facility] [address] [id number] [place] [address] Oct, [facility] [place] [facility] [address] [id number] [place] [address] Oct, [facility] [place] [facility] [address] [id number] [place] [address] Sep, [facility] [place] [facility] [address] [id number] [place] [address] Sep, [facility] [address] [id number] [place] [address] Sep, [facility] [address] [id number] [place] [address] Sep, [facility] [address] [id number] [place] [address] Aug, [facility] [address] [id number] [place] [address] Aug, [facility] [address] [id number] [place] [address] Aug, [facility] [address] [id number] [place] [address] Aug, [facility] [address] [id number] [place] [address] Aug, [facility] [address] [id number] [place] [address] Aug, [facility] [address] [id number] [place] [address] Aug, [facility] [place] [facility] [address] [id number] [place] [address] Aug, [facility] [place] [facility] [address] [id number] [place] [address] Jul, [facility] [place] [facility] [address] [id number] [place] [address] Jul, [facility] [place] [facility] [address] [id number] [place] [address] Jul, [facility] [place] [facility] [address] [id number] [place] [address] Jul, [facility] [place] [facility] [address] [id number] [place] [address] 15 Jun, 2013 [facility] [place] [facility] [address] [id number] [place] [address] 15 Jun, 2013 [facility] [place] [facility] [address] [id number] [place] [address] 132[address] Jun, [facility] [place] [facility] [address] [id number] [place] [address] Jun, [facility] [place] [facility] [address] [id number] [place] [address] 8144 Jun, [facility] [place] [facility] [address] [id number] [place] [address] 44[address] May, [facility] [place] [facility] [address] [id number] [place] [address] Apr, [facility] [place] [facility] [address] [id number] [place] [address] 79[address] Apr, [facility] [place] [facility] [address] [id number] [place] [address] Mar, [facility] [place] [facility] [address] [id number] [place] [address] 7028 Feb, [facility] [place] [facility] [address] [id number] [place] [address] 99[address] Feb, [facility] [place] [facility] [address] [id number] [place] [address] January, [facility] [place] [facility] [address] [id number] [place] [address] 69[address] January, [facility] [place] [facility] [address] [id number] [place] [address] 8712 January, [facility] [place] [facility] [address] [id number] [place] [address] 8694 Nov, [facility] [place] [facility] [address] [id number] [place] [address]463 Oct, [facility] [place] [facility] [address] [id number] [place] [address] 05 Oct, 2012 [facility] [place] [facility] [address] [id number] [place] [address] 36[address] Oct, [facility] [place] [facility] [address] [id number] [place] [address] 73[address] Sep, [facility] [place] [facility] [address] [id number] [place] [address] Sep, [facility] [place] [facility] [address] [id number] [place] [address] Aug, [facility] [place] [facility] [address] [id number] [place] [address] 7651 Aug, [facility] [place] [facility] [address] [id number] [place] [address]- 9686 Jul, [facility] [place] [facility] [address] [id number] [place] [address]- 78[address] Jul, [facility] [place] [facility] [address] [id number] [place] [address] 8970 Jul, [facility] [place] [facility] [address] [id number] [place] [address]- [address]605 Jul, [facility] [place] [facility] [address] [id number] [place] [address] 47[address] Jul, [facility] [place] [facility] [address] [id number] [place] [address]- 5467 Jul, [facility] [place] [facility] [address] [id number] [place] [address]- 0980 Jul, [facility] [place] [facility] [address] [id number] [place] [address] 2735 Jul, [facility] [place] [facility] [address] [id number] [place] [address]- 2516 Jul, [facility] [place] [facility] [address] [id number] [place] [address] Jul, [facility] [place] [facility] [address] [id number] [place] [address]- 1364 Jul, [facility] [place] [facility] [address] [id number] [place] [address]- 3028 Jul, [facility] [place] [facility] [address] [facility] [id number] [place] [address]- 3965 Jul, [facility] [place] [facility] [address] [id number] [place] [address] 9900 Jul, [facility] [place] [facility] [address] [id number] [place] [address]- 3357 Jun, [facility] [place] [facility] [address] [id number] [place] [address]- 8036 Jun, [facility] [place] [facility] [address] [facility] [id number] [place] [address]- 5521 Jun, [facility] [place] [facility] [address] [id number] [place] [address]- 3097 Jun, [facility] [place] [facility] [address] [facility] [id number] [place] [address]- 5644 Jun, [facility] [place] [facility] [address] [facility] [id number] [place] [address]- 4227 Jun, [facility] [place] [facility] [address] [facility] [id number] [place] [address]- 8559 Jun, [facility] [place] [facility] [address] [id number] [place] [address]- 5[address] Apr, [facility] [place] [facility] [address] [id number] [place] [address]- 5419 Apr, [facility] [place] [facility] [address] [facility] [id number] [place] [address]- 28[address] Mar, [facility] [place] [facility] [address] [facility] [id number] [place] [address]- 4534 Feb, [facility] [place] [facility] [address] [id number] [place] [address]- 4830 Feb, [facility] [address] [id number] [place] [address]- 5254 January, [facility] [address] [id number] [place] [address]- 4836 January, [facility] [address] [id number] [place] [address]- 9816 Dec, [facility] [address] [id number] [place] [address]- 3076 Dec, [facility] [address] [id number] [place] [address]- 7032 Nov, [facility] [address] [id number] [place] [address]- 3616 Oct, [facility] [address] [facility] [id number] [place] [address]- 1040 Oct, [facility] [address] [facility] [id number] [place] [address]- 7147 Oct, [facility] [address] [id number] [place] [address]- [address]93 Sep, [facility] [address] [facility] [id number] [place] [address]- 5910 Aug, [facility] [address] [id number] [place] [address]- 3666 14 Aug, 2011 [facility] [address] [id number] [place] [address]- 9341 Aug, [facility] [place] [facility] [address] [id number] [place] [address]- 7641 05 Aug, 2011 [facility] [place] [facility] [address] [facility] [id number] [place] [address]- 2546 02 Aug, 2011 [facility] [address] [facility] [id number] [place] [address]- 5847 Jul, [facility] [address] [facility] [id number] [place] [address]- [address]882 Jul, [facility] [address] [facility] [id number] [place] [address]- 5936 Jul, [facility] [address] [facility] [id number] [place] [address]- 6446 Jul, [facility] [address] [facility] [id number] [place] [address]- 7976 Aug, [facility] [address] [facility] [id number] [place] [address]- 0319 Aug, [facility] [address] [facility] [id number] [place] [address]- 5476 Aug, [facility] [address] [facility] [id number] [place] [address]- 0835 Jun, [facility] [address] [facility] [id number] [place] [address]- 6613 Jun, [facility] [address] [facility] [id number] [place] [address]- 4953 Jun, [facility] [address] [facility] [id number] [place] [address]- 7868 Jun, [facility] [id number] [address]- [address] Jun, [facility] [address] [id number] [place] [address]- 9672 Jul, [facility] [address] [facility] [id number] [place] [address]- 7201 Jul, [facility] [address] [facility] [id number] [place] [address]- 6448 Jun, [facility] [address] [facility] [id number] [place] [address]- 4[address] Jun, IMMUNIZATIONS No Known Immunizations SOCIAL HISTORY Never Assessed REASON FOR VISIT Stomach ache, PT reports he has some pain in his chest that he is able to get rid of but not this time. PT notes its a hard lump -[facility] PLAN OF CARE Activity Details Follow Up 2 Months Reason:abd pain VITAL SIGNS Height 68 in 2018-03-15 Weight 162.2 lbs 2018-03-15 Temperature 97.6 degrees Fahrenheit 2018-03-15 Heart Rate 76 bpm 2018-03-15 Respiratory Rate 20 2018-03-15 Oximetry on room air:98 % 2018-03-15 BMI 24.66 kg/m2 2018-03-15 Blood pressure systolic 120 mmHg 2018-03-15 Blood pressure diastolic 80 mmHg 2018-03-15 MEDICATIONS Medication Instructions Dosage Frequency Start Date End Date Duration Status Flonase Allergy Relief 50 MCG/ACT Nasally twice a day 1 spray in each nostril 12h Nov, Active Flomax 0.4 MG TAKE ONE CAPSULE BY MOUTH DAILY 30 Active Tamsulosin HCl 0.4 MG Orally Once a day 1 capsule 30 minutes after the same meal each day 24h 30 Active Sertraline HCl 100 MG Orally Once a day 1 tablet 24h 90 Active Imitrex 100 MG Orally Twice a day 1 tablet as needed 12h Active Amlodipine Besylate 10 mg Orally Once a day 1 tablet 24h Jun, 90 days Active Advair Diskus 250 mcg-50 mcg 1 puffs 2 times per day Apr, Active Aricept 5 mg Orally Once a day 1 tablet at bedtime 24h Dec, 30 day(s) Active Amitriptyline HCl 25 MG TAKE ONE TO TWO TABLETS BY MOUTH ONCE DAILY AT BEDTIME. 30 Active Hydrocodone-Acetaminophen 7.5-325 MG Orally 3 times a day 1 tablet as needed for pain 8h Oct, 28 days Active Bentyl 20 MG Orally Four times a day 1 tablet 6h 30 Active Propranolol HCl ER 160 MG Orally Once a day 1 capsule 24h Jun, 90 days Active ProAir HFA 108 (90 Base) MCG/ACT Inhalation every 4 hrs 2 puffs as needed 4h Jul, Active Spiriva HandiHaler 18 MCG Inhalation Once a day 1 capsule 24h January, 30 days Active Aspirin Adult Low Strength 81 MG Orally Once a day 1 tablet 24h Active cyclobenzaprine 10 mg 1 tablet by Oral route 3 times per day PRN Nov 30 Active Carafate 1 GM TAKE ONE TABLET BY MOUTH FOUR TIMES DAILY BEFORE MEALS AND AT BEDTIME 30 Active Protonix 40 MG Orally Once a day 1 capsule 24h Active PredniSONE 20 mg Orally Once a day 2 tablet 24h Feb, Mar, 05 days Active Ondansetron HCl 8 MG TAKE ONE TABLET BY MOUTH THREE TIMES DAILY NEEDED FOR NAUSEA 6 Active RESULTS No Results PROCEDURES Procedure Date Ordered Result Body Site COMPLETE CBC W/AUTO DIFF WBC March 15, 2018 COMPREHEN METABOLIC PANEL March 15, 2018 RBC SED RATE, NONAUTOMATED March 15, 2018 C-REACTIVE PROTEIN March 15, 2018 X-RAY EXAM CHEST 2 VIEWS March 15, 2018 INSTRUCTIONS MEDICATIONS ADMINISTERED No Known Medications MEDICAL [...]
--- OUTSIDE RECORDS SUMMARY | 2018-05-26 08:18 | XMS REPORT ---
Author Author LASHAY BLACK Organization [facility] Address [address] [place] [address] Care Team Providers Care Performance Instructor Name Role Phone LASHAY BLACK Unavailable PROBLEMS Type Condition ICD9-CM Code [id number] Code Onset Dates Condition Status SNOMED Code Problem Irritable bowel syndrome with diarrhea K58.0 Active 138309966 Problem Venous vascular malformations Q27.9 Active 049484498 Problem Chronic obstructive pulmonary disease, unspecified COPD type J44.9 Active 89782642 Problem Primary insomnia F51.01 Active 0882810 Problem Migraine without aura and without status migrainosus, not intractable G43.009 Active 516441245 Problem 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 829431435 Problem Hypercholesterolemia E78.00 Active 93429241 Problem Post concussion syndrome F07.81 Active 19524641 Problem Other headache syndrome G44.89 Active 310958499 Problem Decreased renal function N28.9 Active 99117986 Problem Unspecified asthma, uncomplicated J45.909 Active 710266276 Problem Cervicalgia M54.2 Active 15246889 Problem Other chronic pain G89.29 Active 51380603 Problem Hypertension I10 Active 55961368 Problem Idiopathic sleep related nonobstructive alveolar 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 Active 72417550 Problem Anxiety F41.9 Active 25876880 Problem Obstructive sleep apnea G47.33 Active 42983243 ALLERGIES No Information ENCOUNTERS Encounter Location Date Diagnosis [facility] [address] [facility] [id number] [address] Apr, Other chronic pain G89.29 [facility] [address] [id number] [address] Mar, Other chronic pain G89.29 [facility] [address] [facility] [id number], [place] [address] Mar, Decreased renal function N28.9 [facility] [place] [facility] [id number] [place] [address] 55232- 8745 Feb, Xyphoidalgia R07.89 [facility] [id number] [place] [address] 03438- 9352 January, Arthralgia, unspecified joint M25.50 and Other chronic pain G89.29 [place] [address] [address]187- 0040 Dec, Drug-induced constipation K59.03 ; Fatigue, unspecified type R53.83 ; Forgetfulness R68.89 ; Other chronic pain G89.29 and Primary insomnia F51.01 [place] [address] 72654- 8809 Nov, [place] [address] 10361- 3601 Oct, Other chronic pain G89.29 [facility] [id number] [place] [address] 32819- 9866 Sep, Other chronic pain G89.29 [facility] [address] 49055- 4829 Sep, Other chronic pain G89.29 [place] [id number] [place] [address] 58185- 1067 Aug, Other chronic pain G89.29 [facility] [address] 46880- 9016 Jul, Other chronic pain G89.29 ; Encounter for immunization Z23 and Side effects of treatment, initial encounter T88.9XXA [place] [address] 64556- 5971 Jul, Other chronic pain G89.29 [facility] [id number] [place] [address] 78496 -2787 Jul, [facility] [address] [place] [address]- 67[address] Jul, Encounter for immunization Z23 [place] [address] 63751- 0938 Jun, Hypertension I10 ; Other headache syndrome G44.89 ; Post concussion syndrome F07.81 and Other chronic pain G89.29 [place] [address] 43116- 9320 May, [place] [address] 13369- 1164 May, Migraine without aura and without status migrainosus, not intractable G43.009 [place] [address] 96706- 1500 May, 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 17547- 4855 May, Other chronic pain G89.29 [place] [address] 34975- 1092 Apr, Chronic obstructive pulmonary disease, unspecified COPD type J44.9 [place] [address] 20914- 7735 Apr, Chronic obstructive pulmonary disease, unspecified COPD type J44.9 [place] [address] 35957- 6651 Apr, Other chronic pain G89.29 ; Irritable bowel syndrome with diarrhea K58.0 and Hypercholesterolemia E78.00 [place] [id number] [place] [address] 57390- 9642 Apr, Other chronic pain G89.29 [place] [address] 74381- 0052 Mar, Other chronic pain G89.29 [place] [address] 99692- 2725 Feb, 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 [facility] [address] [address] 0957 Feb, Other chronic pain G89.29 [facility] [id number] [place] [address] 84629- 1689 Feb, [facility] [id number] [place] [address] 61762- 4037 January, [facility] [id number] [place] [address] 05727- 7392 January, Other chronic pain G89.29 [facility] [id number] [place] [address] 45692- 7336 January, [facility] [id number] [place] [address] 76137- 6206 January, [facility] [id number] [place] [address] 89171- 0133 January, Other chronic pain G89.29 ; Irritable bowel syndrome with diarrhea K58.0 and Hypercholesterolemia E78.00 [facility] [id number] [place] [address] 43990- 8751 January, Other chronic pain G89.29 ; Hypertension I10 ; Irritable bowel syndrome with diarrhea K58.0 ; Chronic obstructive pulmonary disease, unspecified COPD type J44.9 and Venous vascular malformations Q27.9 [facility] [address] [address] January, Acute otitis externa of right ear, unspecified type H60.501 [facility] [id number] [place] [address] 01804- 7386 Dec, Other chronic pain G89.29 [facility] [id number] [place] [address] 54394- 5730 Dec, Hypertension I10 [facility] [id number] [place] [address] 89082- 2838 Nov, Other chronic pain G89.29 [facility] [id number] [place] [address] 38828- 3398 Oct, Other chronic pain G89.29 [facility] [id number] [place] [address] 35402- 6961 Sep, Other chronic pain G89.29 [facility] [address] 69526- 4620 Sep, Hypertension I10 [facility] [id number] [place] [address] 57229- 5901 Sep, Other chronic pain G89.29 [facility] [address] 52656- 2159 Aug, Arthralgia, unspecified joint M25.50 ; Other chronic pain G89.29 ; Obstructive sleep apnea G47.33 and Idiopathic sleep related nonobstructive alveolar 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 [place] [id number] [place] [address] 59110- 0784 Aug, [facility] [address] 04363- 5215 Aug, Other chronic pain G89.29 [facility] [id number] [place] [address] 47863- 8457 Jul, Chronic obstructive pulmonary disease, unspecified COPD type J44.9 and Diarrhea, unspecified type R19.7 [facility] [id number] [place] [address] 09831- 6199 Jul, Other chronic pain G89.29 [facility] [id number] [place] [address] 33179- 0704 Jul, Skin tags, multiple acquired L91.8 [facility] [id number] [place] [address] 97793- 5979 Jun, [facility] [address] 41358- 9732 Jun, Hypertension I10 [place] [id number] [place] [address] 82035- 1933 May, Mouth pain K13.79 and Other chronic pain G89.29 [place] [id number] [place] [address] 34216- 0049 May, [place] [address] 65386- 3188 May, [place] [address] 05800- 0800 May, Pain in right knee M25.561 and Other chronic pain G89.29 [place] [address] 28255- 4410 Apr, Cervicalgia M54.[address] 58609- 8022 Mar, Cervicalgia M54.2 [place] [address] 80005- 2613 Feb, Fever, unspecified fever cause R50.9 and Arthralgia, unspecified joint M25.50 [place] [id number] [place] [address] 93221- 4986 15 Feb, 2016 Hypertension I10 and Chronic pain syndrome G89.4 [place] [id number] [place] [address] 33027- 3589 Feb, Cervicalgia M54.2 [place] [id number] [place] [address] 72207- 5875 January, [place] [address] 28626- 2191 13 Dec, 2015 Chest pain R07.9 ; Family history of early CAD Z82.49 ; Hypertension I10 ; Fatigue R53.83 and History of IBS Z87.19 [place] [id number] [place] [address] 05990- 3748 Dec, [facility] [id number] [place] [address] 75784- 6199 Nov, Allergic rhinitis J30.9 [facility] [address] 98525- 9745 Nov, [facility] [address] 69553- 6907 Nov, Hypertension I10 and Anxiety F41.9 [facility] [address] 70156- 2573 Nov, [place] [address] 58832- 8898 Oct, [place] [address] 30891- 6463 Oct, Chest pain R07.9 ; Family history of early CAD Z82.49 ; Hypertension I10 ; Fatigue R53.83 and History of IBS Z87.19 [place] [id number] [place] [address] 76705- 9971 Oct, [place] [address] 54583- 3821 Oct, Chest pain, unspecified R07.9 [place] [id number] [place] [address] 86734- 5410 08 Oct, 2015 Chest pain, unspecified R07.9 ; Irritable bowel syndrome with diarrhea K58.0 ; Fatigue R53.83 and Degenerative disc disease, cervical M50.30 [facility] [id number] [place] [address] 44332- 7240 Oct, [facility] [id number] [place] [address] 59189- 1047 Oct, [facility] [id number] [place] [address] 72954- 0263 Sep, [facility] [address] [id number] [address]- 9944 Sep, [facility] [id number] [place] [address] 71808- 0093 Aug, [facility] [id number] [place] [address] 94972- 9332 Aug, [facility] [id number] [place] [address] 518478- 2403 Aug, [facility] [id number] [place] [address] 72454- 5178 Jul, Cervicalgia M54.2 ; Headache R51 ; Post-traumatic headache, unspecified, not intractable G44.309 and Unspecified intracranial injury without loss of consciousness, sequela S06.9X0S [facility] [id number] [place] [address] 17297- 9209 Jul, [facility] [id number] [place] [address] 84815- 4463 Jul, [facility] [id number] [place] [address] 64394- 9524 Jun, [facility] [id number] [place] [address] 01702- 9530 Jun, Encounter for immunization Z23 [facility] [id number] [place] [address] 89289- 9918 Jun, [facility] [id number] [place] [address] 03314- 1919 May, [facility] [id number] [place] [address] 98485- 8744 May, [facility] [id number] [place] [address] 47549- 1548 Apr, [facility] [id number] [place] [address] 23602- 8372 Apr, [facility] [id number] [place] [address]- 6742 Apr, [facility] [address] [id number] [place] [address]- 6383 Mar, [facility] [place] [facility] [address] [id number] [place] [address]- 6707 Mar, [facility] [place] [facility] [address] [id number] [place] [address]- 2393 Mar, [facility] [place] [facility] [address] [id number] [place] [address]- 7353 Feb, [facility] [place] [facility] [address] [id number] [place] [address]- 0214 Feb, [facility] [place] [facility] [address] [id number] [place] [address]- 5455 January, [facility] [place] [facility] [address] [id number] [place] [address]- 8783 January, [facility] [place] [facility] [address] [id number] [place] [address]- 6507 Dec, [facility] [place] [facility] [address] [id number] [place] [address]- 7280 Dec, [facility] [place] [facility] [address] [id number] [place] [address]- 0322 Nov, [facility] [place] [facility] [address] [id number] [place] [address]- 2906 Nov, [facility] [place] [facility] [address] [id number] [place] [address]- 9360 Nov, [facility] [place] [facility] [address] [id number] [place] [address]- 6603 Nov, [facility] [place] [facility] [address] [id number] [place] [address]- 0702 Nov, [facility] [place] [facility] [address] [id number] [place] [address]- 1938 Nov, [facility] [place] [facility] [address] [id number] [place] [address]- 8969 Nov, [facility] [place] [facility] [address] [id number] [place] [address]- 1276 Nov, [facility] [place] [facility] [address] [id number] [place] [address]- 1293 Nov, [facility] [place] [facility] [address] [id number] [place] [address]- 3132 Nov, [facility] [place] [facility] [address] [id number] [place] [address]- 2036 Nov, [facility] [place] [facility] [address] [id number] [place] [address]- 2426 Nov, [facility] [place] [facility] [address] [id number] [place] [address]- 9566 Nov, [facility] [place] [facility] [address] [id number] [place] [address]- 7092 Nov, [facility] [place] [facility] [address] [id number] [place] [address]- 9707 Oct, [facility] [place] [facility] [address] [id number] [place] [address]- 3166 Oct, [facility] [place] [facility] [address] [id number] [place] [address]- 5652 Oct, [facility] [place] [facility] [address] [id number] [address]- 2378 Oct, [facility] [place] [facility] [address] [id number] [place] [address]- 2013 Sep, [facility] [place] [facility] [address] [id number] [place] [address]- 8855 Sep, [facility] [place] [facility] [address] [id number] [place] [address]- 0298 Sep, [facility] [place] [facility] [address] [id number] [place] [address]- 2023 Sep, [facility] [address] [id number] [place] [address]- 8265 Sep, [facility] [place] [facility] [address] [id number] [place] [address]- 7719 Sep, [facility] [place] [facility] [address] [id number] [place] [address]- 7131 Sep, [facility] [place] [facility] [address] [id number] [place] [address]- 3686 Sep, [facility] [place] [facility] [address] [id number] [place] [address]- 1421 Aug, [facility] [place] [facility] [address] [id number] [place] [address]- 7099 Aug, [facility] [place] [facility] [address] [id number] [place] [address]- 0098 Aug, [facility] [place] [facility] [address] [id number] [place] [address]- 2733 Aug, [facility] [place] [facility] [address] [id number] [place] [address]- 3340 Aug, [facility] [place] [facility] [address] [id number] [place] [address]- 7990 Aug, [facility] [place] [facility] [address] [id number] [place] [address]- 8483 Aug, [facility] [place] [facility] [address] [id number] [place] [address]- 2846 Aug, [facility] [place] [facility] [address] [id number] [place] [address]- 4718 Jul, [facility] [place] [facility] [address] [id number] [place] [address]- 8239 Jul, [facility] [place] [facility] [address] [id number] [place] [address]- 7043 Jul, [facility] [place] [facility] [address] [id number] [place] [address]- 7848 Jul, [facility] [place] [facility] [address] [id number] [place] [address]- 4019 Jul, [facility] [place] [facility] [address] [id number] [place] [address]- 5435 Jul, [facility] [place] [facility] [address] [id number] [place] [address]- 9150 Jul, [facility] [place] [facility] [address] [id number] [place] [address]- 7085 Jul, [facility] [place] [facility] [address] [id number] [place] [address]- 3396 Jul, [facility] [place] [facility] [address] [id number] [place] [address]- 7577 Jul, [facility] [place] [facility] [address] [id number] [place] [address]- 0643 Jul, [facility] [place] [facility] [address] [id number] [place] [address]- 2496 Jun, [facility] [place] [facility] [address] [id number] [place] [address]- 2219 Jun, [facility] [place] [facility] [address] [id number] [place] [address]- 2849 Jun, [facility] [place] [facility] [address] [id number] [place] [address]- 1252 Jun, [facility] [place] [facility] [address] [id number] [place] [address]- 7479 Jun, [facility] [place] [facility] [address] [id number] [place] [address]- 0071 Jun, [facility] [place] [facility] [address] [id number] [place] [address]- 8926 Jun, [facility] [place] [facility] [address] [id number], [place] [address]- 8835 Jun, [facility] [place] [facility] [address] [id number] [place] [address]- 0120 Jun, [facility] [place] [facility] [address] [id number] [place] [address]- 7172 Jun, [facility] [place] [facility] [address] [id number] [place] [address]- 5988 Jun, [facility] [place] [facility] [address] [id number] [place] [address]- 5932 Jun, [facility] [place] [facility] [address] [id number] [place] [address]- 1636 Jun, [facility] [place] [facility] [address] [id number] [place] [address]- 2612 Jun, [facility] [place] [facility] [address] [id number] [place] [address]- 1191 Jun, [facility] [place] [facility] [address] [id number] [place] [address]- 0040 Jun, [facility] [place] [facility] [address] [id number] [place] [address]- 9056 Jun, [facility] [place] [facility] [address] [id number] [place] [address]- 0281 25 May, 2013 [facility] [place] [facility] [address] [id number], [place] [address]- 7486 11 May, 2013 [facility] [place] [facility] [address] [id number], [place] [address]- 3329 11 May, 2013 [facility] [place] [facility] [address] [id number] [place] [address]- 1723 04 Sep, 2013 [facility] [place] [facility] [address] [id number] [place] [address]- 6523 04 Sep, 2013 [facility] [place] [facility] [address] [id number] [place] [address]- 9294 03 Sep, 2013 [facility] [place] [facility] [address] [id number] [place] [address]- 6029 May, [facility] [place] [facility] [address] [id number] [place] [address]- 9741 Apr, [facility] [place] [facility] [address] [id number] [place] [address]- 7152 Apr, [facility] [place] [facility] [address] [id number] [place] [address]- 1575 Apr, [facility] [place] [facility] [address] [id number] [place] [address]- 1047 Apr, [facility] [place] [facility] [address] [id number] [place] [address]- 2603 Apr, [facility] [place] [facility] [address] [id number] [place] [address]- 8128 Apr, [facility] [place] [facility] [address] [id number] [place] [address]- 9173 Apr, [facility] [place] [facility] [address] [id number] [place] [address]- 7921 Apr, [facility] [place] [facility] [address] [id number] [place] [address]- 1482 Apr, [facility] [place] [facility] [address] [id number] [place] [address]- 3560 Apr, [facility] [place] [facility] [address] [id number] [place] [address] Apr, [facility] [place] [facility] [address] [id number] [place] [address] Mar, [facility] [place] [facility] [address] [id number] [place] [address] Mar, [facility] [place] [facility] [address] [id number] [place] [address] Mar, [facility] [place] [facility] [address] [id number] [place] [address] Mar, [facility] [place] [facility] [address] [id number] [place] [address] Feb, [facility] [place] [facility] [address] [id number] [place] [address] Feb, [facility] [place] [facility] [address] [id number] [place] [address] Feb, [facility] [place] [facility] [address] [id number] [place] [address] Feb, [facility] [place] [facility] [address] [id number] [place] [address] Feb, [facility] [place] [facility] [address] [id number] [place] [address] Feb, [facility] [place] [facility] [address] [id number] [place] [address] Feb, [facility] [place] [facility] [address] [id number] [place] [address] Feb, [facility] [place] [facility] [address] [id number] [place] [address] January, [facility] [place] [facility] [address] [id number] [place] [address] January, [facility] [place] [facility] [address] [id number] [place] [address] January, [facility] [place] [facility] [address] [id number] [place] [address] January, [facility] [place] [facility] [address] [id number] [place] [address] Dec, [facility] [place] [facility] [address] [id number] [place] [address] Dec, [facility] [place] [facility] [address] [id number] [place] [address] Dec, [facility] [place] [facility] [address] [id number] [place] [address] Dec, [facility] [address] [id number] [place] [address] Dec, [facility] [place] [facility] [address] [id number] [place] [address] Dec, [facility] [place] [facility] [address] [id number] [place] [address] Dec, [facility] [place] [facility] [address] [id number] [place] [address] Dec, [facility] [place] [facility] [address] [id number] [place] [address] Dec, [facility] [place] [facility] [address] [id number] [place] [address] Dec, [facility] [place] [facility] [address] [id number] [place] [address] Nov, [facility] [place] [facility] [address] [id number] [place] [address] Nov, [facility] [place] [facility] [address] [id number] [place] [address] Nov, [facility] [place] [facility] [address] [id number] [place] [address] Nov, [facility] [place] [facility] [address] [id number] [place] [address] Nov, [facility] [place] [facility] [address] [id number] [place] [address] Oct, [facility] [place] [facility] [address] [id number] [place] [address] Oct, [facility] [place] [facility] [address] [id number] [place] [address] Sep, [facility] [place] [facility] [address] [id number] [place] [address] Sep, [facility] [place] [facility] [address] [id number] [place] [address] Sep, [facility] [place] [facility] [address] [id number] [place] [address] Sep, [facility] [place] [facility] [address] [id number] [place] [address] Aug, [facility] [place] [facility] [address] [id number] [place] [address] Aug, [facility] [place] [facility] [address] [id number] [place] [address] Aug, [facility] [place] [facility] [address] [id number] [place] [address] Aug, [facility] [facility] [address] [id number] [place] [address] Aug, [facility] [place] [facility] [address] [id number] [place] [address] Aug, [facility] [place] [facility] [address] [id number] [place] [address] Aug, [facility] [place] [facility] [address] [id number] [place] [address] Aug, [facility] [place] [facility] [address] [facility] [id number] [place] [address] Jul, [facility] [place] [facility] [address] [id number] [place] [address] Jul, [facility] [place] [facility] [address] [id number] [place] [address] Jul, [facility] [place] [address] [id number] [place] [address] Jul, [facility] [address] [id number] [place] [address] Jun, [facility] [place] [facility] [address] [id number] [place] [address] 15 Jun, 2013 [facility] [address] [id number] [place] [address] Jun, [facility] [place] [facility] [address] [id number] [place] [address]646 Jun, [facility] [place] [facility] [address] [facility] [id number] [place] [address]46 Jun, [facility] [place] [facility] [address] [id number] [place] [address] 9080 May, [facility] [place] [facility] [address] [id number] [place] [address] 7780 Apr, [facility] [place] [facility] [address] [id number] [place] [address] 7716 Apr, [facility] [place] [facility] [address] [id number] [place] [address] Mar, [facility] [address] [id number], [place] [address] Feb, [facility] [address] [id number], [place] [address] Feb, [facility] [address] [facility] [id number], [place] [address] January, [facility] [address] [id number], [place] [address]46 January, [facility] [address] [id number], [place] [address] January, [facility] [address] [id number] [place] [address]- [address] Nov, [facility] [address] [id number], [place] [address] Oct, [facility] [address] [facility] [id number], [place] [address] Oct, [facility] [address] [id number] [place] [address]378 Oct, [facility] [address] [id number] [place] [address]481 Sep, [facility] [address] [id number] [place] [address] Sep, [facility] [address] [id number] [place] [address] Aug, [facility] [address] [id number] [place] [address] 8680 Aug, [facility] [address] [id number] [place] [address] 8958 Jul, [facility] [address] [id number] [place] [address] 3961 Jul, [facility] [address] [id number] [place] [address]- 6947 Jul, [facility] [address] [id number] [place] [address] 6[address] Jul, [facility] [address] [id number] [place] [address]- [address] Jul, [facility] [address] [id number] [place] [address] 9413 Jul, [facility] [address] [id number] [place] [address]- 1688 Jul, [facility] [address] [id number] [place] [address] 6662 Jul, [facility] [address] [id number] [place] [address] 7558 Jul, [facility] [address] [id number] [place] [address] 5877 Jul, [facility] [address] [id number] [place] [address]- 7447 Jul, [facility] [address] [id number] [place] [address]- 7657 Jul, [facility] [address] [id number] [place] [address]- 2906 Jul, [facility] [address] [id number] [place] [address]- 0783 Jul, [facility] [address] [id number] [place] [address]- 9660 Jun, [facility] [address] [id number] [place] [address] Jun, [facility] [address] [id number] [place] [address]- 3166 Jun, [facility] [address] [id number] [place] [address]- 1552 Jun, [facility] [address] [id number], [place] [address]- 2628 Jun, [facility] [address] [id number] [place] [address]- 9270 Jun, [facility] [address] [facility] [id number], [place] [address] Jun, [facility] [address] [facility] [id number], [place] [address]- 9539 Apr, [facility] [address] [id number], [place] [address] 7479 Apr, [facility] [address] [id number], [place] [address]30 Mar, [facility] [address] [id number], [place] [address]- 3096 Feb, [facility] [address] [facility] [id number], [place] [address] 8666 Feb, [facility] [address] [id number], [place] [address] 5188 January, [facility] [address] [id number] [place] [address]- 0753 January, [facility] [address] [id number] [place] [address]- 8512 Dec, [facility] [address] [id number] [place] [address]- 1716 Dec, [facility] [address] [id number] [place] [address]- 8251 Nov, [facility] [address] [id number] [place] [address]- 2061 Oct, [facility] [address] [id number] [place] [address]- 7506 Oct, [facility] [address] [id number] [place] [address]- 4541 Oct, [facility] [address] [id number] [place] [address]- 9286 Sep, [facility] [address] [id number] [place] [address]- 4449 Aug, [facility] [address] [facility] [id number] [place] [address]- 1358 Aug, [facility] [address] [id number] [place] [address]- 1838 Aug, [facility] [address] [id number] [place] [address]- 1763 05 Aug, 2011 [facility] [address] [id number] [place] [address]- 0369 Aug, [facility] [address] [id number] [place] [address]- 0402 Jul, [facility] [address] [id number] [place] [address]- 9042 Jul, [facility] [address] [facility] [id number], [place] [address]101 Jul, [facility] [address] [facility] [id number] [place] [address]- 9002 Jul, [facility] [address] [facility] [id number], [place] [address]- 0165 Aug, [facility] [address] [facility] [id number] [place] [address]- 5417 Aug, [facility] [address] [facility] [id number] [place] [address]- 9928 Aug, [facility] [id number] [place] [address] 850001- 5963 Jun, [facility] [id number] [place] [address] 512433- 0035 Jun, [facility] [id number] [place] [address]- 3240 Jun, [facility] [id number], [place] [address]- 1853 Jun, [facility] [id number], [place] [address]- 0532 Jun, [facility] [id number], [place] [address]- 6640 Jul, [facility] [id number], [place] [address]- 0321 Jul, [facility] [address] [id number], [place] [address]- 7179 Jun, [facility] [id number] [id number] Jun, IMMUNIZATIONS No Known Immunizations SOCIAL HISTORY Never Assessed REASON FOR VISIT Pain management (chronic) PLAN OF CARE Activity Details Follow Up 3 Months Reason:chornic pain VITAL SIGNS Height 68 in 2018-02-15 Temperature 97.6 degrees Fahrenheit 2018-02-15 Heart Rate 68 bpm 2018-02-15 Respiratory Rate 20 2018-02-15 Blood pressure systolic 112 mmHg 2018-02-15 Blood pressure diastolic 78 mmHg 2018-02-15 MEDICATIONS Unknown Medications RESULTS No Results PROCEDURES [...]
--- OUTSIDE RECORDS SUMMARY | 2018-05-26 08:19 | XMS REPORT ---
Author Author LASHAY BLACK Organization [facility] [place] Address [address] [place] [address] Care Team Providers Care C[employer]er [employer] Name Role Phone LASHAY BLACK Unavailable PROBLEMS Type Condition ICD9-CM Code RHO53-TY Code Onset Dates Condition Status SNOMED Code Problem Irritable bowel syndrome with diarrhea K58.0 Active 438305886 Problem Venous vascular malformations Q27.9 Active 267543974 Problem Chronic obstructive pulmonary disease, unspecified COPD type J44.9 Active 28503939 Problem Primary insomnia F51.01 Active 5722531 Problem Migraine without aura and without status migrainosus, not intractable G43.009 Active 755864611 Problem 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 774939854 Problem Hypercholesterolemia E78.00 Active 58563732 Problem Post concussion syndrome F07.81 Active 58971062 Problem Other headache syndrome G44.89 Active 118319873 Problem Decreased renal function N28.9 Active 31673205 Problem Unspecified asthma, uncomplicated J45.909 Active 167289507 Problem Cervicalgia M54.2 Active 72298956 Problem Other chronic pain G89.29 Active 60846410 Problem Hypertension I10 Active 84521493 Problem Idiopathic sleep related nonobstructive alveolar 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 Active 14152720 Problem Anxiety F41.9 Active 59912530 Problem Obstructive sleep apnea G47.33 Active 68460049 ALLERGIES Substance Reaction Event Type Date Status Prevagen Unknown Drug Allergy Dec, Active Penicillin V Potassium Unknown Drug Allergy Dec, Active Cardura XL Unknown Drug Allergy Dec, Active ENCOUNTERS Encounter Location Date Diagnosis [facility] [place] [address] [facility] [id number] [address] Mar, Other chronic pain G89.29 [facility] [place] [address] [facility] [id number] [address] Mar, Decreased renal function N28.9 [facility] [place] [address] [place] [id number] [place] [address] 27250- 1487 Feb, Xyphoidalgia R07.89 [facility] [place] [address] [address] January, Arthralgia, unspecified joint M25.50 and Other chronic pain G89.29 [place] [address] 462357- 5297 Dec, Drug-induced constipation K59.03 ; Fatigue, unspecified type R53.83 ; Forgetfulness R68.89 ; Other chronic pain G89.29 and Primary insomnia F51.01 [place] [address] 48787- 20[address] Nov, [place] [address] 11022- 9335 Oct, Other chronic pain G89.29 [facility] [place] [address] [address]- [address] Sep, Other chronic pain G89.29 [facility] [place] [address] [address]- 3011 Sep, Other chronic pain G89.29 [place] [address] 42906- 1910 Aug, Other chronic pain G89.29 [facility] [place] [address] [address]- [address] Jul, Other chronic pain G89.29 ; Encounter for immunization Z23 and Side effects of treatment, initial encounter T88.9XXA [facility] [place] [address] 12[address]- 7250 Jul, Other chronic pain G89.29 [facility] [address] [place] [id number] [place] [address] 85677 -9990 Jul, [facility] [place] [address] [place] [address] Jul, Encounter for immunization Z23 [place] [address] 27374- 8343 Jun, Hypertension I10 ; Other headache syndrome G44.89 ; Post concussion syndrome F07.81 and Other chronic pain G89.29 [place] [address] 10309- 7260 May, [place] [address] 10038- 3368 May, Migraine without aura and without status migrainosus, not intractable G43.009 [place] [address] 56920- 2646 May, 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 [address]77- 7906 May, Other chronic pain G89.29 [place] [address] 35484- 2779 Apr, Chronic obstructive pulmonary disease, unspecified COPD type J44.9 [place] [address] 71008- 9330 Apr, Chronic obstructive pulmonary disease, unspecified COPD type J44.9 [place] [address] [place] [id number] [place] [address] 69859- 9940 Apr, Other chronic pain G89.29 ; Irritable bowel syndrome with diarrhea K58.0 and Hypercholesterolemia E78.00 [place] [address] 49521- 6059 Apr, Other chronic pain G89.29 [place] [address] 20555- 2664 Mar, Other chronic pain G89.29 [place] [address] [place] [id number] [place] [address] 09598- 0084 Feb, 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 [facility] [place] [address] [address] Feb, Other chronic pain G89.29 [facility] [place] [address] [place] [address] 91858- 5298 Feb, [facility] [place] [address] [place] [address] 55490- 8659 January, [facility] [place] [address] [place] [id number] [place] [address] 29215- 2595 January, Other chronic pain G89.29 [facility] [place] [address] [place] [id number] [place] [address] 11608- 5337 January, [facility] [place] [address] [place] [id number] [place] [address] 14543- 0774 January, [facility] [place] [address] [place] [id number] [place] [address] 40506- 1781 January, Other chronic pain G89.29 ; Irritable bowel syndrome with diarrhea K58.0 and Hypercholesterolemia E78.00 [facility] [place] [address] [place] [id number] [place] [address] 62827- 9928 January, Other chronic pain G89.29 ; Hypertension I10 ; Irritable bowel syndrome with diarrhea K58.0 ; Chronic obstructive pulmonary disease, unspecified COPD type J44.9 and Venous vascular malformations Q27.9 [facility] [address], [place] [address] January, Acute otitis externa of right ear, unspecified type H60.501 [facility] [place] [address], [place] [address] Dec, Other chronic pain G89.29 [facility] [place] [address] [place] [address] 53243- 4920 Dec, Hypertension I10 [facility] [place] [address] [place] [address] 73589- 4283 Nov, Other chronic pain G89.29 [facility] [place] [address] [place] [address] 21326- 1594 Oct, Other chronic pain G89.29 [facility] [place] [address] [place] [id number] [place] [address] 40377- 8510 Sep, Other chronic pain G89.29 [facility] [place] [address] [place] [id number] [place] [address] 70026- 0594 Sep, Hypertension I10 [facility] [place] [address] [place] [id number] [place] [address] 66980- 5278 Sep, Other chronic pain G89.29 [facility] [place] [address] 84367- 8873 Aug, Arthralgia, unspecified joint M25.50 ; Other chronic pain G89.29 ; Obstructive sleep apnea G47.33 and Idiopathic sleep related nonobstructive alveolar 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 [place] [address] [place] [id number] [place] [address] 51907- 6517 Aug, [facility] [place] [address] [place] [id number] [place] [address] 71319- 7433 Aug, Other chronic pain G89.29 [facility] [place] [address] [place] [id number] [place] [address] 10859- 3996 Jul, Chronic obstructive pulmonary disease, unspecified COPD type J44.9 and Diarrhea, unspecified type R19.7 [place] [address] [place] [id number] [place] [address] 55602- 3032 Jul, Other chronic pain G89.29 [facility] [place] [address] [place] [id number] [place] [address] 09520- 4999 Jul, Skin tags, multiple acquired L91.8 [facility] [place] [address] [place] [id number] [place] [address] 06634- 5197 Jun, [facility] [place] [address] [place] [id number] [place] [address] 21035- 7402 Jun, Hypertension I10 [place] [address] [place] [address] 13298- 5089 May, Mouth pain K13.79 and Other chronic pain G89.29 [place] [address] [place] [id number] [place] [address] 36565- 6942 May, [place] [address] [place] [id number] [place] [address] 82277- 1056 May, [place] [address] [place] [id number] [place] [address] 02253- 8970 May, Pain in right knee M25.561 and Other chronic pain G89.29 [place] [address] 02803- 4755 Apr, Cervicalgia M54.2 [place] [id number] [place] [address] 49788- 8629 Mar, Cervicalgia M54.2 [place] [address] [place] [id number] [place] [address] 33864- 1696 Feb, Fever, unspecified fever cause R50.9 and Arthralgia, unspecified joint M25.50 [place] [address] [place] [id number] [place] [address] 32222- 3825 15 Feb, 2016 Hypertension I10 and Chronic pain syndrome G89.4 [place] [id number] [place] [address] 20642- 1037 Feb, Cervicalgia M54.2 [place] [address] [place] [id number] [place] [address] 96044- 4597 January, [place] [address] 99968- 4391 13 Dec, 2015 Chest pain R07.9 ; Family history of early CAD Z82.49 ; Hypertension I10 ; Fatigue R53.83 and History of IBS Z87.19 [place] [id number] [place] [address] 61157- 6738 Dec, [facility] [place] [address] [address]- 8085 Nov, Allergic rhinitis J30.9 [facility] [place] [address] [place] [id number] [place] [address] 76095- 0991 14 Nov, 2015 [facility] [place] [address] [place] [id number] [place] [address] 38203- 6047 Nov, Hypertension I10 and Anxiety F41.9 [facility] [place] [address] [place] [id number] [place] [address] 78070- 3895 Nov, [facility] [place] [address] [place] [id number] [place] [address] 40389- 4404 Oct, [place] [address] [place] [id number] [place] [address] 21970- 3175 Oct, Chest pain R07.9 ; Family history of early CAD Z82.49 ; Hypertension I10 ; Fatigue R53.83 and History of IBS Z87.19 [place] [address] [place] [id number] [place] [address] 96866- 0290 Oct, [facility] [place] [address] [place] [id number] [place] [address] 87307- 4502 Oct, Chest pain, unspecified R07.9 [facility] [place] [address] [place] [id number] [place] [address] 83309- 6340 08 Oct, 2015 Chest pain, unspecified R07.9 ; Irritable bowel syndrome with diarrhea K58.0 ; Fatigue R53.83 and Degenerative disc disease, cervical M50.30 [facility] [place] [address] [place] [id number] [place] [address] 14282- 4317 Oct, [facility] [place] [address] [place] [id number] [place] [address] 20660- 3337 Oct, [facility] [place] [address] [place] [address] 28134- 8377 Sep, [facility] [place] [address] [place] [id number] [place] [address] 63477- 2660 Sep, [facility] [place] [address] [place] [id number] [place] [address] 29020- 6448 Aug, [facility] [place] [address] [place] [id number] [place] [address] 81521- 1244 Aug, [facility] [place] [address] [place] [id number] [place] [address] 683788- 1575 Aug, [facility] [place] [address] [place] [id number] [place] [address] 95325- 7442 Jul, Cervicalgia M54.2 ; Headache R51 ; Post-traumatic headache, unspecified, not intractable G44.309 and Unspecified intracranial injury without loss of consciousness, sequela S06.9X0S [facility] [place] [address] [place] [id number] [place] [address] 10557- 0372 Jul, [facility] [place] [address] [place] [id number] [place] [address] 05724- 3792 Jul, [facility] [place] [address] [place] [id number] [place] [address] 71783- 2948 Jun, [facility] [place] [address] [place] [id number] [place] [address] 51024- 4595 Jun, Encounter for immunization Z23 [facility] [place] [address] [place] [id number] [place] [address] 29844- 7356 Jun, [facility] [place] [address] [place] [id number] [place] [address] 64893- 5774 May, [facility] [place] [address] [place] [id number] [place] [address] 30669- 3631 May, [facility] [place] [address] [place] [id number] [place] [address] 45121- 7411 Apr, [facility] [place] [address] [place] [id number] [place] [address] 25195- 9542 Apr, [facility] [place] [address] [place] [address]- 8043 Apr, [facility] [place] [facility] [address] [id number] [place] [address]- 8723 Mar, [facility] [place] [facility] [address] [id number] [place] [address]- 7187 Mar, [facility] [place] [facility] [address] [id number] [place] [address]- 5014 Mar, [facility] [place] [facility] [address] [id number] [place] [address]- 6949 Feb, [facility] [place] [facility] [address] [id number] [place] [address]- 2441 Feb, [facility] [place] [facility] [address] [id number] [place] [address]- 3173 January, [facility] [place] [facility] [address] [id number] [place] [address]- 1364 January, [facility] [place] [facility] [address] [id number] [place] [address]- 4332 Dec, [facility] [place] [facility] [address] [id number] [place] [address]- 3133 Dec, [facility] [place] [facility] [address] [id number] [place] [address]- 5202 Nov, [facility] [place] [facility] [address] [id number] [place] [address]- 6158 Nov, [facility] [place] [facility] [address] [id number] [place] [address]- 8672 Nov, [facility] [place] [facility] [address] [id number] [place] [address]- 0922 Nov, [facility] [place] [facility] [address] [id number] [place] 3104 Nov, [facility] [place] [facility] [address] [id number] [place] [address]- 8174 Nov, [facility] [place] [facility] [address] [id number] [place] [address]- 7483 Nov, [facility] [place] [facility] [address] [id number] [place] [address]- 7330 Nov, [facility] [place] [facility] [address] [id number] [place] [address]- 1253 Nov, [facility] [place] [facility] [address] [id number] [place] [address]- 9315 Nov, [facility] [place] [facility] [address] [id number] [place] [address]- 0071 Nov, [facility] [place] [facility] [address] [id number] [place] [address]- 2239 Nov, [facility] [place] [facility] [address] [id number] [place] [address]- 7195 Nov, [facility] [place] [facility] [address] [id number] [place] [address]- 4468 Nov, [facility] [place] [facility] [address] [id number] [place] [address]- 2519 Oct, [facility] [place] [facility] [address] [id number] [place] [address]- 6116 Oct, [facility] [place] [facility] [address] [id number] [place] [address]- 3840 Oct, [facility] [place] [facility] [address] [id number], [place] [address]- 5182 Oct, [facility] [place] [facility] [address] [id number] [place] [address]- 9961 Sep, [facility] [place] [facility] [address] [id number] [place] [address]- 9705 Sep, [facility] [place] [facility] [address] [id number], [place] [address]- 4438 Sep, [facility] [place] [facility] [address] [id number], [place] [address]- 5433 Sep, [facility] [address] [id number] [place] [address]- 3849 Sep, [facility] [place] [facility] [address] [id number] [place] [address]- 4445 Sep, [facility] [place] [facility] [address] [facility] [id number] [place] [address]- 6727 Sep, [facility] [place] [facility] [address] [id number] [place] [address]- 9216 Sep, [facility] [place] [facility] [address] [id number] [place] [address]- 9961 Aug, [facility] [place] [facility] [address] [id number] [place] [address]- 6399 Aug, [facility] [place] [facility] [address] [facility] [id number] [place] [address]- 4418 Aug, [facility] [place] [facility] [address] [id number] [place] [address]- 2796 Aug, [facility] [place] [facility] [address] [id number] [place] [address]- 9862 Aug, [facility] [place] [facility] [address] [facility] [id number] [place] [address]- 9765 Aug, [facility] [place] [facility] [address] [id number] [place] [address]- 8794 Aug, [facility] [place] [facility] [address] [id number], [place] [address]- 3470 Aug, [facility] [place] [facility] [address] [id number] [place] [address]- 0998 Jul, [facility] [place] [facility] [address] [id number] [place] [address]- 0963 Jul, [facility] [place] [facility] [address] [facility] [id number] [place] [address]- 6749 Jul, [facility] [place] [facility] [address] [id number] [place] [address]- 8637 Jul, [facility] [place] [facility] [address] [id number] [place] [address]- 2394 Jul, [facility] [place] [facility] [address] [id number] [place] [address]- 4150 Jul, [facility] [place] [facility] [address] [id number] [place] [address]- 3390 Jul, [facility] [place] [facility] [address] [id number] [place] [address]- 5936 Jul, [facility] [place] [facility] [address] [id number] [place] [address]- 9876 Jul, [facility] [place] [facility] [address] [id number] [place] [address]- 4720 Jul, [facility] [place] [facility] [address] [id number] [place] [address]- 6840 Jul, [facility] [place] [facility] [address] [id number] [place] [address]- 7847 Jun, [facility] [place] [facility] [address] [id number] [place] [address] Jun, [facility] [place] [facility] [address] [id number] [place] [address] Jun, [facility] [place] [facility] [address] [id number] [place] [address] Jun, [facility] [place] [facility] [address] [id number] [place] [address] Jun, [facility] [place] [facility] [address] [id number] [place] [address] Jun, [facility] [place] [facility] [address] [id number] [place] [address] Jun, [facility] [place] [facility] [address] [id number] [place] [address] Jun, [facility] [place] [facility] [address] [id number] [place] [address] Jun, [facility] [place] [facility] [address] [id number] [place] [address] Jun, [facility] [place] [facility] [address] [id number] [place] [address] Jun, [facility] [place] [facility] [address] [id number] [place] [address] Jun, [facility] [place] [facility] [address] [id number] [place] [address] Jun, [facility] [place] [facility] [address] [id number] [place] [address] Jun, [facility] [place] [facility] [address] [id number] [place] [address] Jun, [facility] [place] [facility] [address] [id number] [place] [address] Jun, [facility] [place] [facility] [address] [id number] [place] [address] Jun, [facility] [place] [facility] [address] [id number] [place] [address] 25 May, 2013 [facility] [place] [facility] [address] [id number], [place] [address] 11 May, 2013 [facility] [place] [facility] [address] [id number], [place] [address] 11 May, 2013 [facility] [place] [facility] [address] [id number] [place] [address] 04 Sep, 2013 [facility] [place] [facility] [address] [id number], [place] [address] 04 Sep, 2013 [facility] [place] [facility] [address] [id number], [place] [address] 03 Sep, 2013 [facility] [place] [facility] [address] [id number] [place] [address] May, [facility] [place] [facility] [address] [id number] [place] [address] Apr, [facility] [place] [facility] [address] [id number] [place] [address] Apr, [facility] [place] [facility] [address] [id number] [place] [address] Apr, [facility] [place] [facility] [address] [id number] [place] [address] Apr, [facility] [place] [facility] [address] [id number] [place] [address] Apr, [facility] [place] [facility] [address] [id number] [place] [address] Apr, [facility] [place] [facility] [address] [id number] [place] [address] Apr, [facility] [place] [facility] [address] [id number] [place] [address] Apr, [facility] [place] [facility] [address] [id number] [place] [address] Apr, [facility] [place] [facility] [address] [id number] [place] [address] Apr, [facility] [place] [facility] [address] [id number] [place] [address] Apr, [facility] [place] [facility] [address] [id number] [place] [address] Mar, [facility] [place] [facility] [address] [id number] [place] [address] Mar, [facility] [place] [facility] [address] [id number] [place] [address] 80[address] Mar, [facility] [place] [facility] [address] [id number] [place] [address] Mar, [facility] [place] [facility] [address] [id number] [place] [address] Feb, [facility] [place] [facility] [address] [id number] [place] [address] 36[address] Feb, [facility] [place] [facility] [address] [id number] [place] [address] Feb, [facility] [place] [facility] [address] [id number] [place] [address] Feb, [facility] [place] [facility] [address] [id number] [place] [address]227 Feb, [facility] [place] [facility] [address] [id number] [place] [address] Feb, [facility] [place] [facility] [address] [id number] [place] [address] 70[address] Feb, [facility] [place] [facility] [address] [id number] [place] [address] Feb, [facility] [place] [facility] [address] [id number] [place] [address] 7098 January, [facility] [place] [facility] [address] [id number] [place] [address] January, [facility] [place] [facility] [address] [id number] [place] [address] 1481 January, [facility] [place] [facility] [address] [id number] [place] [address]300 January, [facility] [place] [facility] [address] [id number] [place] [address]951 Dec, [facility] [place] [facility] [address] [id number] [place] [address] 8329 Dec, [facility] [place] [facility] [address] [id number] [place] [address] 9332 Dec, [facility] [place] [facility] [address] [id number] [place] [address] 9072 Dec, [facility] [place] [facility] [address] [id number] [place] [address] 4524 Dec, [facility] [place] [facility] [address] [id number] [place] [address] 5079 Dec, [facility] [place] [facility] [address] [id number] [place] [address] 5055 Dec, [facility] [place] [facility] [address] [id number] [place] [address] 1675 Dec, [facility] [place] [facility] [address] [id number] [place] [address] 0557 Dec, [facility] [place] [facility] [address] [id number] [place] [address] 5654 Dec, [facility] [place] [facility] [address] [id number] [place] [address] 8678 Nov, [facility] [place] [facility] [address] [id number] [place] [address]- 1138 Nov, [facility] [place] [facility] [address] [id number] [place] [address] 6865 Nov, [facility] [place] [facility] [address] [id number] [place] [address] 9483 Nov, [facility] [place] [facility] [address] [id number] [place] [address] 1330 Nov, [facility] [place] [facility] [address] [id number] [place] [address]- 5529 Oct, [facility] [place] [facility] [address] [id number] [place] [address] 1769 Oct, [facility] [place] [facility] [address] [id number] [place] [address] 3877 Sep, [facility] [place] [facility] [address] [id number] [place] [address] 3607 Sep, [facility] [place] [facility] [address] [id number] [place] [address] 8918 Sep, [facility] [address] [id number] [place] [address] 1175 Sep, [facility] [place] [facility] [address] [id number] [place] [address]- 7176 Aug, [facility] [place] [facility] [address] [id number] [place] [address] 9940 Aug, [facility] [place] [facility] [address] [id number] [place] [address] 4274 Aug, [facility] [place] [facility] [address] [id number] [place] [address] Aug, [facility] [place] [facility] [address] [id number] [place] [address] 4696 Aug, [facility] [place] [facility] [address] [id number] [place] [address]- 5518 Aug, [facility] [address] [id number] [place] [address] 2634 Aug, [facility] [place] [facility] [address] [id number] [place] [address] 5[address] Aug, [facility] [place] [facility] [address] [id number] [place] [address] 2915 Jul, [facility] [place] [facility] [address] [id number] [place] [address] Jul, [facility] [place] [facility] [address] [id number] [place] [address] 8232 Jul, [facility] [place] [facility] [address] [id number] [place] [address] 5857 Jul, [facility] [place] [facility] [address] [id number] [place] [address] 2446 Jun, [facility] [place] [facility] [address] [id number] [place] [address] 7607 Jun, [facility] [address] [id number] [place] [address] 2749 Jun, [facility] [place] [facility] [address] [id number] [place] [address]- 2460 Jun, [facility] [place] [facility] [address] [id number] [place] [address] 6554 Jun, [facility] [place] [facility] [address] [id number] [place] [address]- 0698 May, [facility] [place] [facility] [address] [id number] [place] [address] 7955 Apr, [facility] [place] [facility] [address] [id number] [place] [address]- 1665 Apr, [facility] [place] [facility] [address] [id number] [place] [address] 8729 Mar, [facility] [place] [facility] [address] [id number], [place] [address] Feb, [facility] [place] [facility] [address] [id number] [place] [address] 5009 Feb, [facility] [place] [facility] [address] [id number], [place] [address]168 January, [facility] [place] [facility] [address] [id number], [place] [address] 69[address] January, [facility] [place] [facility] [address] [id number], [place] [address] 86[address] January, [facility] [place] [facility] [address] [id number] [place] [address]- 3627 Nov, [facility] [place] [facility] [address] [id number], [place] [address] 7622 Oct, [facility] [place] [facility] [address] [id number] [place] [address]- 5758 Oct, [facility] [place] [facility] [address] [id number] [place] [address]- 0091 Oct, [facility] [address] [id number] [place] [address]- 4767 Sep, [facility] [place] [facility] [address] [id number] [place] [address]- 6238 Sep, [facility] [address] [id number] [place] [address]- 1409 Aug, [facility] [place] [facility] [address] [id number] [place] [address]- 0195 Aug, [facility] [address] [id number] [place] [address]- 0070 Jul, [facility] [place] [facility] [address] [id number] [place] [address]- 4408 Jul, [facility] [address] [id number] [place] [address]- 3248 Jul, [facility] [place] [facility] [address] [id number] [place] [address]- 5919 Jul, [facility] [place] [facility] [address] [id number] [place] [address]- 1824 Jul, [facility] [place] [facility] [address] [id number] [place] [address]- 9779 Jul, [facility] [place] [facility] [address] [id number] [place] [address]- 8406 Jul, [facility] [place] [facility] [address] [id number] [place] [address]- 3809 Jul, [facility] [place] [facility] [address] [id number] [place] [address]- 4327 Jul, [facility] [place] [facility] [address] [id number] [place] [address]- 0509 Jul, [facility] [place] [facility] [address] [id number] [place] [address]- 8019 Jul, [facility] [place] [facility] [address] [id number] [place] [address] 2549 Jul, [facility] [place] [facility] [address] [id number] [place] [address]- 7938 Jul, [facility] [place] [facility] [address] [id number] [place] [address]- 0522 Jul, [facility] [place] [facility] [address] [id number] [place] [address]- 8538 Jun, [facility] [place] [facility] [address] [id number] [place] [address]- 0924 Jun, [facility] [place] [facility] [address] [id number] [place] [address]- 2459 Jun, [facility] [place] [facility] [address] [id number] [place] [address]- 4021 Jun, [facility] [place] [facility] [address] [id number] [place] [address]- 3002 Jun, [facility] [place] [facility] [address] [id number] [place] [address]- 9984 Jun, [facility] [place] [facility] [address] [id number] [place] [address]- 6884 Jun, [facility] [place] [facility] [address] [id number] [place] [address]- 3509 Apr, [facility] [place] [facility] [address] [id number], [place] [address]- 3621 Apr, [facility] [place] [facility] [address] [id number] [place] [address]- 1767 Mar, [facility] [place] [facility] [address] [id number] [place] [address]- 7566 Feb, [facility] [place] [facility] [address] [id number] [place] [address] 2546 Feb, [facility] [place] [facility] [address] [id number] [place] [address]- 7437 January, [facility] [address] [id number] [place] [address]- 6318 January, [facility] [place] [facility] [address] [id number] [place] [address]- 1796 Dec, [facility] [address] [id number] [place] [address]- 8786 Dec, [facility] [place] [facility] [address] [id number] [place] [address]- 5045 Nov, [facility] [address] [id number] [place] [address]- 9955 Oct, [facility] [place] [facility] [address] [id number] [place] [address]- 9916 Oct, [facility] [address] [facility] [id number] [place] [address]- 6780 Oct, [facility] [place] [facility] [address] [id number] [place] [address]- 3224 Sep, [facility] [address] [facility] [id number] [place] [address]- 7178 Aug, [facility] [place] [facility] [address] [facility] [id number] [place] [address]- 9324 Aug, [facility] [address] [id number] [place] [address]- 1309 Aug, [facility] [place] [facility] [address] [id number] [place] [address]- 6860 Aug, [facility] [place] [facility] [address] [id number] [place] [address]- 9587 Aug, [facility] [place] [facility] [address] [facility] [id number] [place] [address]- 8305 Jul, [facility] [place] [facility] [address] [facility] [id number] [place] [address]- 6182 Jul, [facility] [place] [facility] [address] [facility] [id number], [place] [address]- 7810 Jul, [facility] [place] [address], [place] [address] Jul, [facility] [place] [address] [facility] [id number], [place] [address] 2548 Aug, [facility] [place] [address] [facility] [id number], [place] [address] 2547 Aug, [facility] [place] [address] [facility] [id number], [place] [address]- 2758 Aug, [facility] [place] [id number] [place] [address]- 3904 Jun, [facility] [place] [id number] [address]20 Jun, [facility] [place] [id number] [address]32 Jun, [facility] [place] [id number], [place] [address]- 1013 Jun, [facility] [place] [address], [place] [address]- 7033 Jun, [facility] [place] [address], [place] [address]- 9992 Jul, [facility] [place] [address] [address] Jul, [facility] [place] [address], [place] [address]- 2554 Jun, [facility] [place] [address] [address] Jun, IMMUNIZATIONS No Known Immunizations SOCIAL HISTORY Never Assessed REASON FOR VISIT Pain management (chronic)-Kvng RODRIGUEZ, PT battels with constipation, forgetfulness, and tired PLAN OF CARE Activity Details Follow Up 4 Weeks Reason:forgetfulness VITAL SIGNS Height 68 in 2017-12-21 Weight 167.9 lbs 2017-12-21 Temperature 97.7 degrees Fahrenheit 2017-12-21 Heart Rate 78 bpm 2017-12-21 Respiratory Rate 20 2017-12-21 BMI 25.53 kg/m2 2017-12-21 Blood pressure systolic 126 mmHg 2017-12-21 Blood pressure diastolic 68 mmHg 2017-12-21 MEDICATIONS Medication Instructions Dosage Frequency Start Date End Date Duration Status Flonase Allergy Relief 50 MCG/ACT Nasally twice a day 1 spray in each nostril 12h Nov, Active ProAir HFA 108 (90 Base) MCG/ACT Inhalation every 4 hrs 2 puffs as needed 4h Jul, Active Tamsulosin HCl 0.4 MG Orally Once a day 1 capsule 30 minutes after the same meal each day 24h 30 Active Flomax 0.4 MG TAKE ONE CAPSULE BY MOUTH DAILY 30 Active Spiriva HandiHaler 18 MCG Inhalation Once a day 1 capsule 24h January, 30 days Active Amitriptyline HCl 25 MG TAKE ONE TO TWO TABLETS BY MOUTH ONCE DAILY AT BEDTIME. 30 Active Advair Diskus 250 mcg-50 mcg 1 puffs 2 times per day Apr, Active Cortisporin 3.5-67805-4 Otic Three times a day 4 drops into affected ear 8h January, 10 days Not-Taking Naproxen 500 MG TAKE ONE TABLET BY MOUTH TWICE DAILY WITH FOOD 30 Not-Taking Imitrex 100 MG Orally Twice a day 1 tablet as needed 12h Active Bentyl 20 MG Orally Four times a day 1 tablet 6h 30 Active Carafate 1 GM TAKE ONE TABLET BY MOUTH FOUR TIMES DAILY BEFORE MEALS AND AT BEDTIME 30 Active Aspirin Adult Low Strength 81 MG Orally Once a day 1 tablet 24h Active Hydrocodone-Acetaminophen 7.5-325 MG Orally 3 times a day 1 tablet as needed for pain 8h Oct, 28 days Active Amlodipine Besylate 10 mg Orally Once a day 1 tablet 24h Jun, 90 days Active cyclobenzaprine 10 mg 1 tablet by Oral route 3 times per day PRN Nov 30 Active Aricept 5 mg Orally Once a day 1 tablet at bedtime 24h Dec, 30 day(s) Active Sertraline HCl 100 MG Orally Once a day 1 tablet 24h 90 Active Propranolol HCl ER 160 MG Orally Once a day 1 capsule 24h Jun, 90 days Not-Taking RESULTS No Results PROCEDURES Procedure Date Ordered Result Body Site DRUG SCREEN AMPHETAMINES 09/20December 21, 2017 DRUG TEST PRSMV CHEM ANLYZR December 21, 2017 COMPLETE CBC W/AUTO DIFF WBC December 21, 2017 ASSAY THYROID STIM HORMONE December 21, 2017 VENIPUNCT, ROUTINE* December 21, 2017 COMPREHEN METABOLIC PANEL December 21, 2017 INSTRUCTIONS MEDICATIONS ADMINISTERED No Known Medications MEDICAL [...]
--- OUTSIDE RECORDS SUMMARY | 2018-05-26 08:20 | XMS REPORT ---
Author Author LASHAY BLACK Organization [facility] Address [address] [place] [address] Care Team Providers Care Billing Control Clerk Name Role Phone LASHAY BLACK Unavailable PROBLEMS Type Condition ICD9-CM Code [id number] Code Onset Dates Condition Status SNOMED Code Problem Irritable bowel syndrome with diarrhea K58.0 Active 642113810 Problem Venous vascular malformations Q27.9 Active 058491584 Problem Chronic obstructive pulmonary disease, unspecified COPD type J44.9 Active 84324997 Problem Primary insomnia F51.01 Active 5375788 Problem Migraine without aura and without status migrainosus, not intractable G43.009 Active 400850310 Problem 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 662529080 Problem Hypercholesterolemia E78.00 Active 25539901 Problem Post concussion syndrome F07.81 Active 20246454 Problem Other headache syndrome G44.89 Active 953229020 Problem Decreased renal function N28.9 Active 72955036 Problem Unspecified asthma, uncomplicated J45.909 Active 041279490 Problem Cervicalgia M54.2 Active 14845881 Problem Other chronic pain G89.29 Active 33334902 Problem Hypertension I10 Active 70006180 Problem Idiopathic sleep related nonobstructive alveolar 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 Active 13188094 Problem Anxiety F41.9 Active 71884802 Problem Obstructive sleep apnea G47.33 Active 49657489 ALLERGIES No Information ENCOUNTERS Encounter Location Date Diagnosis [facility] [address] [facility] [id number] [address] Mar, Other chronic pain G89.29 [facility] [address] [id number] [address] Mar, Decreased renal function N28.9 [facility] [address] [facility] [id number], [place] [address] Feb, Xyphoidalgia R07.89 [facility] [id number] [place] [address] 45126- 7044 January, Arthralgia, unspecified joint M25.50 and Other chronic pain G89.29 [facility] [id number] [place] [address] 76952- 0101 Dec, Drug-induced constipation K59.03 ; Fatigue, unspecified type R53.83 ; Forgetfulness R68.89 ; Other chronic pain G89.29 and Primary insomnia F51.01 [facility] [id number] [place] [address] 46931- 4570 Nov, [place] [id number] [place] [address] 79194- 4774 Oct, Other chronic pain G89.29 [facility] [id number] [place] [address] 54140- 6328 Sep, Other chronic pain G89.29 [facility] [id number] [place] [address] 37448- 5364 Sep, Other chronic pain G89.29 [facility] [id number] [place] [address] 84052- 8074 05 Aug, 2017 Other chronic pain G89.29 [facility] [id number] [place] [address] 10313- 5895 Jul, Other chronic pain G89.29 ; Encounter for immunization Z23 and Side effects of treatment, initial encounter T88.9XXA [facility] [id number] [place] [address] 88471- 1785 07 Jul, 2017 Other chronic pain G89.29 [facility] [id number] [place] [address] 51734 -2517 Jul, [facility] [id number] [place] [address] 92007- 5473 Jul, Encounter for immunization Z23 [facility] [address] [place] [address]- 2778 Jun, Hypertension I10 ; Other headache syndrome G44.89 ; Post concussion syndrome F07.81 and Other chronic pain G89.29 [facility] [id number] [place] [address] 59322- 6283 May, [place] [id number] [place] [address] 62336- 4683 May, Migraine without aura and without status migrainosus, not intractable G43.009 [facility] [id number] [place] [address] 57295- 1478 22 May, 2017 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 [place] [address] 87567- 4734 May, Other chronic pain G89.29 [place] [address] 39826- 6111 Apr, Chronic obstructive pulmonary disease, unspecified COPD type J44.9 [facility] [id number] [place] [address] 88451- 3026 Apr, Chronic obstructive pulmonary disease, unspecified COPD type J44.9 [facility] [id number] [place] [address] 28824- 2776 Apr, Other chronic pain G89.29 ; Irritable bowel syndrome with diarrhea K58.0 and Hypercholesterolemia E78.00 [facility] [id number] [place] [address] 87038- 8668 Apr, Other chronic pain G89.29 [facility] [facility] [id number] [place] [address] 68445- 4072 Mar, Other chronic pain G89.29 [facility] [facility] [id number] [place] [address] 89948- 7058 Feb, 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 [place] [address] 68730- 5374 Feb, Other chronic pain G89.29 [facility] [address] [address] 6084 Feb, [facility] [id number] [place] [address] 96042- 1392 January, [facility] [id number] [place] [address] 88393- 3688 January, Other chronic pain G89.29 [facility] [id number] [place] [address] 68477- 8661 January, [facility] [id number] [place] [address] 52692- 5204 January, [facility] [id number] [place] [address] 83110- 7003 January, Other chronic pain G89.29 ; Irritable bowel syndrome with diarrhea K58.0 and Hypercholesterolemia E78.00 [facility] [id number] [place] [address] 83850- 3749 January, Other chronic pain G89.29 ; Hypertension I10 ; Irritable bowel syndrome with diarrhea K58.0 ; Chronic obstructive pulmonary disease, unspecified COPD type J44.9 and Venous vascular malformations Q27.9 [facility] [address] [address] January, Acute otitis externa of right ear, unspecified type H60.501 [facility] [address] [address]- 3105 Dec, Other chronic pain G89.29 [facility] [address] [place] [address] 02070- 5620 Dec, Hypertension I10 [facility] [id number] [place] [address] 36890- 4193 Nov, Other chronic pain G89.29 [facility] [address] [place] [address] 12446- 5110 Oct, Other chronic pain G89.29 [facility] [address] [place] [address] 13487- 3887 Sep, Other chronic pain G89.29 [facility] [id number] [place] [address] 31842- 2660 Sep, Hypertension I10 [facility] [id number] [place] [address] 87600- 9510 Sep, Other chronic pain G89.29 [facility] [id number] [place] [address] 24756- 7297 Aug, Arthralgia, unspecified joint M25.50 ; Other chronic pain G89.29 ; Obstructive sleep apnea G47.33 and Idiopathic sleep related nonobstructive alveolar 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 [facility] [id number] [place] [address] 95819- 5586 Aug, [facility] [id number] [place] [address] 43212- 3505 Aug, Other chronic pain G89.29 [facility] [id number] [place] [address] 12489- 5542 Jul, Chronic obstructive pulmonary disease, unspecified COPD type J44.9 and Diarrhea, unspecified type R19.7 [facility] [id number] [place] [address] 42876- 3339 Jul, Other chronic pain G89.29 [facility] [id number] [place] [address] 51104- 5230 Jul, Skin tags, multiple acquired L91.8 [facility] [id number] [place] [address] 16641- 8369 Jun, [facility] [id number] [place] [address] 73877- 7005 Jun, Hypertension I10 [facility] [id number] [place] [address] 99352- 6067 May, Mouth pain K13.79 and Other chronic pain G89.29 [place] [facility] [id number] [place] [address] 32333- 1872 May, [place] [id number] [place] [address] 66177- 0653 May, [place] [id number] [place] [address] 42842- 9667 May, Pain in right knee M25.561 and Other chronic pain G89.29 [place] [address] 71786- 1892 Apr, Cervicalgia M54.2 [place] [address] 85923- 3820 Mar, Cervicalgia M54.2 [place] [address] 45749- 0133 Feb, Fever, unspecified fever cause R50.9 and Arthralgia, unspecified joint M25.50 [place] [id number] [place] [address] 86386- 6168 15 Feb, 2016 Hypertension I10 and Chronic pain syndrome G89.4 [facility] [facility] [id number] [place] [address] 18277- 9173 08 Feb, 2016 Cervicalgia M54.2 [place] [id number] [place] [address] 98439- 7866 January, [place] [id number] [place] [address] 18774- 1826 13 Dec, 2015 Chest pain R07.9 ; Family history of early CAD Z82.49 ; Hypertension I10 ; Fatigue R53.83 and History of IBS Z87.19 [place] [id number] [place] [address] 41703- 5470 Dec, [place] [address] 87091- 6240 Nov, Allergic rhinitis J30.9 [facility] [id number] [place] [address] 14219- 8189 Nov, [facility] [address] 20274- 3808 Nov, Hypertension I10 and Anxiety F41.9 [facility] [address] 03772- 3456 Nov, [facility] [address] 00499- 0330 Oct, [place] [address] 20836- 6766 Oct, Chest pain R07.9 ; Family history of early CAD Z82.49 ; Hypertension I10 ; Fatigue R53.83 and History of IBS Z87.19 [place] [address] 43511- 0268 Oct, [place] [id number] [place] [address] 10744- 8425 Oct, Chest pain, unspecified R07.9 [place] [address] 94784- 7787 08 Oct, 2015 Chest pain, unspecified R07.9 ; Irritable bowel syndrome with diarrhea K58.0 ; Fatigue R53.83 and Degenerative disc disease, cervical M50.30 [place] [id number] [place] [address] 59131- 5342 Oct, [facility] [id number] [place] [address] 65822- 1468 Oct, [facility] [address] 32389- 5271 Sep, [facility] [id number] [place] [address] 77567- 2140 Sep, [place] [address] [place] [address]- 8311 Aug, [facility] [id number] [place] [address] 60281- 5246 Aug, [facility] [id number] [place] [address] 490309- 9760 Aug, [facility] [id number] [place] [address] 55189- 7664 Jul, Cervicalgia M54.2 ; Headache R51 ; Post-traumatic headache, unspecified, not intractable G44.309 and Unspecified intracranial injury without loss of consciousness, sequela S06.9X0S [facility] [id number] [place] [address] 93438- 7898 Jul, [facility] [id number] [place] [address] 29518- 6128 Jul, [facility] [id number] [place] [address] 70816- 5214 Jun, [facility] [id number] [place] [address] 91641- 9109 Jun, Encounter for immunization Z23 [facility] [id number] [place] [address] 54017- 5086 Jun, [facility] [id number] [place] [address] 06101- 5084 May, [facility] [id number] [place] [address] 21197- 9474 May, [facility] [id number] [place] [address] 30823- 6678 Apr, [facility] [id number] [place] [address] 02802- 8332 Apr, [facility] [id number] [place] [address] 686749- 4541 Apr, [facility] [id number] [place] [address] 13926- 2100 Mar, [facility] [place] [facility] [address] [id number] [place] [address]- 8141 Mar, [facility] [place] [facility] [address] [id number] [place] [address]- 2563 Mar, [facility] [place] [facility] [address] [id number] [place] [address]- 9885 Feb, [facility] [place] [facility] [address] [id number] [place] [address]- 2361 Feb, [facility] [place] [facility] [address] [id number] [place] [address]- 1039 January, [facility] [place] [facility] [address] [id number] [place] [address]- 6744 January, [facility] [place] [facility] [address] [facility] [id number] [place] [address]- 4124 Dec, [facility] [place] [facility] [address] [id number] [place] [address]- 2329 Dec, [facility] [place] [facility] [address] [id number] [place] [address]- 3758 Nov, [facility] [place] [facility] [address] [facility] [id number] [place] [address]- 7441 Nov, [facility] [place] [facility] [address] [id number] [place] [address]- 8959 Nov, [facility] [place] [facility] [address] [id number] [place] [address]- 4589 Nov, [facility] [place] [facility] [address] [id number] [place] [address]- 0093 Nov, [facility] [place] [facility] [address] [facility] [id number] [place] [address]- 5536 Nov, [facility] [place] [facility] [address] [facility] [id number] [place] [address]- 5210 Nov, [facility] [place] [facility] [address] [id number] [place] [address]- 7235 Nov, [facility] [place] [facility] [address] [id number] [place] [address]- 2822 Nov, [facility] [place] [facility] [address] [id number] [place] [address]- 5819 Nov, [facility] [place] [facility] [address] [id number] [place] [address]- 2128 Nov, [facility] [place] [facility] [address] [id number] [place] [address]- 1374 Nov, [facility] [place] [facility] [address] [id number] [place] [address]- 5195 Nov, [facility] [place] [facility] [address] [id number] [place] [address]- 9323 Nov, [facility] [place] [facility] [address] [id number] [place] [address]- 4212 Oct, [facility] [place] [facility] [address] [id number] [place] [address]- 2764 Oct, [facility] [place] [facility] [address] [id number] [place] [address]- 8002 Oct, [facility] [place] [facility] [address] [id number] [place] [address]- 1913 Oct, [facility] [place] [facility] [address] [id number] [place] [address]- 3226 Sep, [facility] [place] [facility] [address] [id number] [place] [address]- 4633 Sep, [facility] [place] [facility] [address] [id number] [place] [address]- 3005 Sep, [facility] [place] [facility] [address] [id number] [place] [address]- 6067 Sep, [facility] [place] [facility] [address] [id number] [place] [address]- 8581 Sep, [facility] [place] [facility] [address] [id number] [place] [address]- 6956 Sep, [facility] [place] [facility] [address] [id number] [place] [address]- 5286 Sep, [facility] [place] [facility] [address] [id number] [place] [address]- 4583 Sep, [facility] [place] [facility] [address] [id number] [place] [address]- 2663 Aug, [facility] [place] [facility] [address] [id number] [place] [address]- 6161 Aug, [facility] [place] [facility] [address] [id number] [place] [address]- 0381 Aug, [facility] [place] [facility] [address] [id number] [place] [address]- 1786 Aug, [facility] [place] [facility] [address] [id number] [place] [address]- 1111 Aug, [facility] [place] [facility] [address] [id number] [place] [address]- 2186 Aug, [facility] [place] [facility] [address] [id number] [place] [address]- 8669 Aug, [facility] [place] [facility] [address] [id number] [place] [address]- 9680 Aug, [facility] [place] [facility] [address] [id number] [place] [address]- 3230 Jul, [facility] [place] [facility] [address] [id number] [place] [address]- 9092 Jul, [facility] [place] [facility] [address] [id number] [place] [address]- 6548 Jul, [facility] [place] [facility] [address] [id number] [place] [address]- 4180 Jul, [facility] [place] [facility] [address] [id number] [place] [address]- 7651 Jul, [facility] [place] [facility] [address] [id number] [place] [address]- 0185 Jul, [facility] [place] [facility] [address] [id number] [place] [address]- 3758 Jul, [facility] [place] [facility] [address] [id number] [place] [address]- 4181 Jul, [facility] [place] [facility] [address] [id number] [place] [address]- 0129 Jul, [facility] [place] [facility] [address] [id number] [place] [address]- 1657 Jul, [facility] [place] [facility] [address] [id number] [place] [address]- 6094 Jul, [facility] [place] [facility] [address] [id number] [place] [address]- 6632 Jun, [facility] [place] [facility] [address] [id number] [place] [address]- 2888 Jun, [facility] [place] [facility] [address] [id number] [place] [address]- 1164 Jun, [facility] [place] [facility] [address] [id number] [place] [address]- 6346 Jun, [facility] [place] [facility] [address] [id number] [place] [address]- 0064 Jun, [facility] [place] [facility] [address] [id number] [place] [address]- 8681 Jun, [facility] [place] [facility] [address] [id number] [place] [address]- 6757 Jun, [facility] [place] [facility] [address] [id number] [place] [address]- 5326 Jun, [facility] [place] [facility] [address] [id number] [place] [address]- 0579 Jun, [facility] [place] [facility] [address] [id number] [place] [address]- 8702 24 Jun, 2014 [facility] [place] [facility] [address] [id number] [place] [address]- 1613 Jun, [facility] [place] [facility] [address] [id number] [place] [address]- 7796 Jun, [facility] [place] [facility] [address] [id number] [place] [address]- 6482 Jun, 2013 [facility] [place] [facility] [address] [id number] [place] [address]- 6657 Jun, [facility] [place] [facility] [address] [id number] [place] [address]- 9013 Jun, [facility] [place] [facility] [address] [id number] [place] [address]- 7953 Jun, [facility] [place] [facility] [address] [id number] [place] [address]- 9508 Jun, [facility] [place] [facility] [address] [id number] [place] [address]- 9712 25 Sep, 2013 [facility] [place] [facility] [address] [id number], [place] [address]- 0727 11 Sep, 2013 [facility] [place] [facility] [address] [id number], [place] [address]- 0507 11 Sep, 2013 [facility] [place] [facility] [address] [id number], [place] [address]- 7593 04 Sep, 2013 [facility] [place] [facility] [address] [id number], [place] [address]- 6048 04 Sep, 2013 [facility] [place] [facility] [address] [id number], [place] [address]- 9604 03 Sep, 2013 [facility] [place] [facility] [address] [id number], [place] [address]- 5342 03 Sep, 2013 [facility] [place] [facility] [address] [id number], [place] [address]- 1150 Apr, [facility] [place] [facility] [address] [id number] [place] [address]- 4395 Apr, [facility] [place] [facility] [address] [id number] [place] [address]- 7230 Apr, [facility] [place] [facility] [address] [id number] [place] [address]- 6742 Apr, [facility] [place] [facility] [address] [id number] [place] [address]- 2223 Apr, [facility] [place] [facility] [address] [id number] [place] [address]- 6836 Apr, [facility] [place] [facility] [address] [id number] [place] [address] Apr, [facility] [place] [facility] [address] [id number] [place] [address] Apr, [facility] [place] [facility] [address] [id number] [place] [address] Apr, [facility] [place] [facility] [address] [id number] [place] [address] Apr, [facility] [place] [facility] [address] [id number] [place] [address] Apr, [facility] [place] [facility] [address] [id number] [place] [address] Mar, [facility] [place] [facility] [address] [id number] [place] [address] Mar, [facility] [place] [facility] [address] [id number] [place] [address] Mar, [facility] [place] [facility] [address] [id number] [place] [address] Mar, [facility] [place] [facility] [address] [id number] [place] [address] Feb, [facility] [place] [facility] [address] [id number] [place] [address] Feb, [facility] [place] [facility] [address] [id number] [place] [address] Feb, [facility] [place] [facility] [address] [id number] [place] [address] Feb, [facility] [place] [facility] [address] [id number] [place] [address] Feb, [facility] [place] [facility] [address] [id number] [place] [address] Feb, [facility] [place] [facility] [address] [id number] [place] [address] Feb, [facility] [place] [facility] [address] [id number] [place] [address] Feb, [facility] [place] [facility] [address] [id number] [place] [address] January, [facility] [place] [facility] [address] [id number] [place] [address] January, [facility] [place] [facility] [address] [id number] [place] [address] January, [facility] [place] [facility] [address] [id number] [place] [address] January, [facility] [place] [facility] [address] [id number] [place] [address] Dec, [facility] [place] [facility] [address] [id number] [place] [address] Dec, [facility] [place] [facility] [address] [id number] [place] [address]- [address] Dec, [facility] [place] [facility] [address] [id number] [place] [address] Dec, [facility] [place] [facility] [address] [id number] [place] [address] Dec, [facility] [place] [facility] [address] [id number] [place] [address] Dec, [facility] [place] [facility] [address] [id number] [place] [address] Dec, [facility] [place] [facility] [address] [id number] [place] [address]- [address] Dec, [facility] [place] [facility] [address] [id number] [place] [address] Dec, [facility] [place] [facility] [address] [id number] [place] [address] Dec, [facility] [place] [facility] [address] [id number] [place] [address] Nov, [facility] [place] [facility] [address] [id number] [place] [address] Nov, [facility] [place] [facility] [address] [id number] [place] [address] Nov, [facility] [place] [facility] [address] [id number] [place] [address] Nov, [facility] [place] [facility] [address] [id number] [place] [address] Nov, [facility] [place] [facility] [address] [id number] [place] [address] Oct, [facility] [place] [facility] [address] [id number] [place] [address] Oct, [facility] [place] [facility] [address] [id number] [place] [address] Sep, [facility] [place] [facility] [address] [id number] [place] [address] Sep, [facility] [place] [facility] [address] [id number] [place] Sep, [facility] [place] [facility] [address] [id number] [place] [address] Sep, [facility] [address] [id number] [place] [address] Aug, [facility] [facility] [address] [id number] [place] [address] Aug, [facility] [address] [id number] [place] [address] 05 Aug, 2013 [facility] [address] [id number] [place] [address] Aug, [facility] [address] [id number] [place] [address] Aug, [facility] [address] [id number] [place] [address] Aug, [facility] [address] [facility] [id number] [place] [address] Aug, [facility] [address] [id number] [place] [address] Aug, [facility] [address] [id number] [place] [address] Jul, [facility] [address] [facility] [id number] [place] [address] Jul, [facility] [place] [facility] [address] [id number] [place] [address] Jul, [facility] [place] [facility] [address] [facility] [id number], [place] [address] Jul, [facility] [place] [facility] [address] [id number] [place] [address] 15 Jun, 2013 [facility] [place] [facility] [address] [facility] [id number] [place] [address] Jun, [facility] [place] [facility] [address] [id number] [place] [address] Jun, [facility] [place] [facility] [address] [id number] [place] [address] Jun, [facility] [place] [facility] [address] [id number] [place] [address] Jun, [facility] [place] [facility] [address] [id number] [place] [address] 07[address] May, [facility] [place] [facility] [address] [id number] [place] [address] Apr, [facility] [place] [facility] [address] [id number] [place] [address]26 Apr, [facility] [place] [facility] [address] [id number] [place] [address] Mar, [facility] [place] [facility] [address] [id number] [place] [address] Feb, [facility] [place] [facility] [address] [id number] [place] [address] Feb, [facility] [place] [facility] [address] [id number] [place] [address] January, [facility] [place] [facility] [address] [id number] [place] [address] January, [facility] [place] [facility] [address] [id number] [place] [address] January, [facility] [place] [facility] [address] [id number], [place] [address] Nov, [facility] [place] [facility] [address] [id number] [place] [address] Oct, [facility] [place] [facility] [address] [id number] [place] [address]46 Oct, [facility] [place] [facility] [address] [id number] [place] [address]46 Oct, [facility] [place] [facility] [address] [id number], [place] [address] Sep, [facility] [place] [facility] [address] [id number] [place] [address] Sep, [facility] [place] [facility] [address] [id number] [place] [address] Aug, [facility] [place] [facility] [address] [id number] [place] [address] Aug, [facility] [place] [facility] [address] [id number] [place] [address] 8437 Jul, [facility] [place] [facility] [address] [id number] [place] [address] 8457 Jul, [facility] [place] [facility] [address] [id number] [place] [address] Jul, [facility] [place] [facility] [address] [id number] [place] [address] 0781 Jul, [facility] [place] [facility] [address] [id number], [place] [address] Jul, [facility] [place] [facility] [address] [id number] [place] [address] Jul, [facility] [place] [facility] [address] [id number] [place] [address]45 Jul, [facility] [place] [facility] [address] [id number] [place] [address] Jul, [facility] [place] [facility] [address] [id number], [place] [address] Jul, [facility] [place] [facility] [address] [id number], [place] [address] Jul, [facility] [place] [facility] [address] [id number], [place] [address] Jul, [facility] [place] [facility] [address] [id number], [place] [address] Jul, [facility] [place] [facility] [address] [id number] [place] [address] 4198 Jul, [facility] [place] [facility] [address] [id number] [place] [address] 1144 Jul, [facility] [place] [facility] [address] [id number] [place] [address] 7159 Jun, [facility] [place] [facility] [address] [id number] [place] [address] 7521 Jun, [facility] [place] [facility] [address] [id number] [place] [address] 6[address] Jun, [facility] [place] [facility] [address] [id number] [place] [address]- 0983 Jun, [facility] [place] [facility] [address] [id number] [place] [address] 2174 Jun, [facility] [place] [facility] [address] [id number] [place] [address] 7340 Jun, [facility] [place] [facility] [address] [id number] [place] [address]- 2487 Jun, [facility] [place] [facility] [address] [id number] [place] [address] 2947 Apr, [facility] [place] [facility] [address] [id number] [place] [address] 1649 Apr, [facility] [place] [facility] [address] [id number] [place] [address] 3291 Mar, [facility] [place] [facility] [address] [id number] [place] [address] 7939 Feb, [facility] [place] [facility] [address] [id number] [place] [address] 2206 Feb, [facility] [place] [facility] [address] [id number] [place] [address] 4864 January, [facility] [place] [facility] [address] [id number] [place] [address] 2407 January, [facility] [address] [id number] [place] [address] 6445 Dec, [facility] [place] [facility] [address] [id number] [place] [address] 7289 Dec, [facility] [place] [facility] [address] [id number] [place] [address]- 9455 Nov, [facility] [place] [facility] [address] [id number] [place] [address] 1905 Oct, [facility] [place] [facility] [address] [id number] [place] [address] Oct, [facility] [place] [facility] [address] [id number] [place] [address]- 5203 Oct, [facility] [place] [facility] [address] [id number] [place] [address]- 2063 Sep, [facility] [place] [facility] [address] [id number] [place] [address] 5997 Aug, [facility] [place] [facility] [address] [id number] [place] [address]- 5457 Aug, [facility] [place] [facility] [address] [id number] [place] [address]- 2756 Aug, [facility] [place] [facility] [address] [id number] [place] [address]- 1628 Aug, [facility] [place] [facility] [address] [id number], [place] [address]70 Aug, [facility] [place] [facility] [address] [id number] [place] [address]- 1634 Jul, [facility] [place] [facility] [address] [id number] [place] [address]- 9765 Jul, [facility] [place] [facility] [address] [id number] [place] [address]- 0972 Jul, [facility] [place] [facility] [id number], [place] [address] 08 Jul, 2011 [facility] [id number], [place] [address] Aug, [facility] [id number], [place] [address] 4036 Aug, [facility] [id number], [place] [address]- 8437 Aug, [facility] [id number], [place] [address]- 9444 Jun, [facility] [id number] [place] [address]- [address]35 Jun, [facility] [id number], [place] [address]- 8527 Jun, [facility] [id number] [place] [address]- [address]443 Jun, [facility] [id number], [place] [address] Jun, [facility] [id number], [place] [address] 3318 Jul, [facility] [address], [place] [address] 459[address] Jul, [facility] [id number], [place] [address]- [address] Jun, [facility] [id number], [place] [address] Jun, IMMUNIZATIONS No Known Immunizations SOCIAL HISTORY Never Assessed REASON FOR VISIT [place] Update PLAN OF CARE VITAL SIGNS MEDICATIONS Unknown [...]
--- OUTSIDE RECORDS SUMMARY | 2018-05-26 08:21 | XMS REPORT ---
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 Role Phone LASHAY BLACK Unavailable PROBLEMS Type Condition ICD9-CM Code [id number] Code Onset Dates Condition Status SNOMED Code Problem Irritable bowel syndrome with diarrhea K58.0 Active 033215466 Problem Venous vascular malformations Q27.9 Active 182918309 Problem Chronic obstructive pulmonary disease, unspecified COPD type J44.9 Active 63275728 Problem Primary insomnia F51.01 Active 6279384 Problem Migraine without aura and without status migrainosus, not intractable G43.009 Active 227804959 Problem 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33 Active 08430851 ALLERGIES No Information ENCOUNTERS Encounter Location Date Diagnosis [facility] [address] [facility] [id number] [address] Mar, Decreased renal function N28.9 [facility] [address] [id number] [address] Feb, Xyphoidalgia R07.89 [facility] [address] [id number] [address] January, Arthralgia, unspecified joint M25.50 and Other chronic pain G89.29 [facility] [id number] [place] [address] 01795- 7812 Dec, Drug-induced constipation K59.03 ; Fatigue, unspecified type R53.83 ; Forgetfulness R68.89 ; Other chronic pain G89.29 and Primary insomnia F51.01 [facility] [address] [address]- [address] Nov, [place] [id number] [place] [address] 46680- 6461 Oct, Other chronic pain G89.29 [place] [address] 28730- 7604 Sep, Other chronic pain G89.29 [place] [id number] [place] [address] 03318- 7658 Sep, Other chronic pain G89.29 [place] [id number] [place] [address] 37130- 2466 Aug, Other chronic pain G89.29 [place] [address] 9[address]01- 4062 Jul, Other chronic pain G89.29 ; Encounter for immunization Z23 and Side effects of treatment, initial encounter T88.9XXA [facility] [id number] [place] [address] 63577- 1082 Jul, Other chronic pain G89.29 [facility] [id number] [place] [address] 41240 -0608 Jul, [facility] [address] 90923- 2103 Jul, Encounter for immunization Z23 [facility] [id number] [place] [address] 55750- 0241 Jun, Hypertension I10 ; Other headache syndrome G44.89 ; Post concussion syndrome F07.81 and Other chronic pain G89.29 [place] [id number] [place] [address] 18455- 6069 May, [facility] [id number] [place] [address] 20826- 4146 25 May, 2017 Migraine without aura and without status migrainosus, not intractable G43.009 [place] [id number] [place] [address] 22646- 2045 May, 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 [place] [id number] [place] [address] 44902- 7830 May, Other chronic pain G89.29 [place] [id number] [place] [address] 44426- 3216 Apr, Chronic obstructive pulmonary disease, unspecified COPD type J44.9 [place] [id number] [place] [address] 11988- 7330 Apr, Chronic obstructive pulmonary disease, unspecified COPD type J44.9 [place] [id number] [place] [address] 68646- 4885 Apr, Other chronic pain G89.29 ; Irritable bowel syndrome with diarrhea K58.0 and Hypercholesterolemia E78.00 [place] [id number] [place] [address] 21593- 3995 Apr, Other chronic pain G89.29 [place] [id number] [place] [address] 46500- 9418 Mar, Other chronic pain G89.29 [place] [id number] [place] [address] 40291- 3925 Feb, 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 [facility] [id number] [place] [address] 01005- 3988 Feb, Other chronic pain G89.29 [place] [id number] [place] [address] 67438- 4879 Feb, [facility] [address] [address] 269[address] January, [facility] [id number] [place] [address] 11730- 8097 January, Other chronic pain G89.29 [facility] [id number] [place] [address] 88540- 9373 January, [facility] [id number] [place] [address] 48988- 7847 January, [facility] [id number] [place] [address] 18498- 9936 January, Other chronic pain G89.29 ; Irritable bowel syndrome with diarrhea K58.0 and Hypercholesterolemia E78.00 [facility] [id number] [place] [address] 45646- 5228 January, Other chronic pain G89.29 ; Hypertension I10 ; Irritable bowel syndrome with diarrhea K58.0 ; Chronic obstructive pulmonary disease, unspecified COPD type J44.9 and Venous vascular malformations Q27.9 [facility] [id number] [place] [address] 38756 -8774 January, Acute otitis externa of right ear, unspecified type H60.501 [facility] [id number] [place] [address] 75869- 8236 Dec, Other chronic pain G89.29 [facility] [id number] [place] [address] 73785- 9946 Dec, Hypertension I10 [facility] [id number] [place] [address] 95667- 8395 Nov, Other chronic pain G89.29 [facility] [id number] [place] [address] 57205- 4155 Oct, Other chronic pain G89.29 [facility] [id number] [place] [address] 06548- 9863 Sep, Other chronic pain G89.29 [facility] [id number] [place] [address] 51200- 7385 Sep, Hypertension I10 [facility] [address] 50794- 9023 Sep, Other chronic pain G89.29 [facility] [address] 54617- 6098 Aug, Arthralgia, unspecified joint M25.50 ; Other chronic pain G89.29 ; Obstructive sleep apnea G47.33 and Idiopathic sleep related nonobstructive alveolar 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 [place] [address] 32406- 8709 Aug, [place] [address] 31326- 5056 Aug, Other chronic pain G89.29 [place] [address] 77664- 4504 Jul, Chronic obstructive pulmonary disease, unspecified COPD type J44.9 and Diarrhea, unspecified type R19.7 [place] [id number] [place] [address] 81213- 0554 Jul, Other chronic pain G89.29 [place] [id number] [place] [address] 10739- 7367 Jul, Skin tags, multiple acquired L91.8 [facility] [address] 05062- 2575 Jun, [place] [address] 74165- 5803 Jun, Hypertension I10 [facility] [address] 49595- 6708 May, Mouth pain K13.79 and Other chronic pain G89.29 [place] [address] 85185- 7932 May, [facility] [id number] [place] [address] 13065- 1111 May, [place] [address] 49812- 8705 May, Pain in right knee M25.561 and Other chronic pain G89.29 [place] [address] 07020- 8438 Apr, Cervicalgia M54.2 [place] [address] 50116- 8942 Mar, Cervicalgia M54.2 [place] [address] 37996- 3504 Feb, Fever, unspecified fever cause R50.9 and Arthralgia, unspecified joint M25.50 [place] [address] 02098- 2552 15 Feb, 2016 Hypertension I10 and Chronic pain syndrome G89.4 [place] [address] 27912- 4266 Feb, Cervicalgia M54.2 [place] [id number] [place] [address] 17535- 5991 January, [place] [id number] [place] [address] 95619- 6740 Dec, Chest pain R07.9 ; Family history of early CAD Z82.49 ; Hypertension I10 ; Fatigue R53.83 and History of IBS Z87.19 [place] [address] 73711- 8222 Dec, [place] [address] 60154- 0660 31 Nov, 2015 Allergic rhinitis J30.9 [place] [address] 31881- 7845 14 Nov, 2015 [facility] [id number] [place] [address] 82803- 2482 Nov, Hypertension I10 and Anxiety F41.9 [place] [address] 73907- 1604 Nov, [facility] [address] 06625- 6886 Oct, [facility] [address] 49348- 4006 Oct, Chest pain R07.9 ; Family history of early CAD Z82.49 ; Hypertension I10 ; Fatigue R53.83 and History of IBS Z87.19 [place] [address] 82028- 3045 Oct, [place] [address] 57807- 6455 Oct, Chest pain, unspecified R07.9 [place] [id number] [place] [address] 09964- 0805 Oct, Chest pain, unspecified R07.9 ; Irritable bowel syndrome with diarrhea K58.0 ; Fatigue R53.83 and Degenerative disc disease, cervical M50.30 [place] [id number] [place] [address] 03585- 2452 Oct, [facility] [id number] [place] [address] 76786- 6902 Oct, [facility] [id number] [place] [address] 95470- 8819 Sep, [facility] [address] 98974- 3924 Sep, [facility] [id number] [place] [address] 22411- 4834 Aug, [facility] [address] 59624- 9773 Aug, [facility] [id number] [place] [address] 06480- 1395 Aug, [facility] [id number] [place] [address] 554992- 4170 Jul, Cervicalgia M54.2 ; Headache R51 ; Post-traumatic headache, unspecified, not intractable G44.309 and Unspecified intracranial injury without loss of consciousness, sequela S06.9X0S [facility] [id number] [place] [address] 77930- 8343 Jul, [facility] [id number] [place] [address] 98817- 9630 Jul, [facility] [id number] [place] [address] 12943- 1587 Jun, [facility] [id number] [place] [address] 86341- 9481 Jun, Encounter for immunization Z23 [facility] [id number] [place] [address] 55229- 3370 Jun, [facility] [id number] [place] [address] 34208- 0162 May, [facility] [id number] [place] [address] 37195- 2418 May, [facility] [id number] [place] [address] 21168- 6108 Apr, [facility] [id number] [place] [address] 70029- 5912 Apr, [facility] [id number] [place] [address] 914816- 9628 Apr, [facility] [id number] [place] [address] 852860- 2680 Mar, [facility] [id number] [place] [address] 67717- 9283 Mar, [facility] [place] [facility] [address] [id number] [place] [address]- 8161 Mar, [facility] [place] [facility] [address] [id number] [place] [address]- 1642 Feb, [facility] [place] [facility] [address] [id number] [place] [address]- 1384 Feb, [facility] [place] [facility] [address] [id number] [place] [address]- 8181 January, [facility] [place] [facility] [address] [id number] [place] [address]- 8715 January, [facility] [place] [facility] [address] [id number] [place] [address]- 7866 Dec, [facility] [place] [facility] [address] [id number] [place] [address]- 9673 Dec, [facility] [place] [facility] [address] [id number] [place] [address]- 2923 Nov, [facility] [place] [facility] [address] [id number] [place] [address]- 2949 Nov, [facility] [place] [facility] [address] [id number] [place] [address]- 8283 Nov, [facility] [place] [facility] [address] [id number] [place] [address]- 0706 Nov, [facility] [place] [facility] [address] [id number], [place] [address]- 4465 Nov, [facility] [place] [facility] [address] [id number] [place] [address]- 7107 Nov, [facility] [place] [facility] [address] [id number] [place] [address]- 4379 Nov, [facility] [place] [facility] [address] [id number] [place] [address]- 7199 Nov, [facility] [place] [facility] [address] [id number] [place] [address]- 2417 Nov, [facility] [place] [facility] [address] [id number] [place] [address]- 3685 Nov, [facility] [place] [facility] [address] [id number] [place] [address]- 0435 Nov, [facility] [place] [facility] [address] [id number] [place] [address]- 3464 Nov, [facility] [place] [facility] [address] [id number] [place] [address]- 2900 Nov, [facility] [place] [facility] [address] [id number] [place] [address]- 5316 Nov, [facility] [place] [facility] [address] [id number] [place] [address]- 7574 Oct, [facility] [place] [facility] [address] [id number] [place] [address]- 4635 Oct, [facility] [place] [facility] [address] [id number] [place] [address]- 5987 Oct, [facility] [place] [facility] [address] [id number] [place] [address]- 3944 Oct, [facility] [place] [facility] [address] [facility] [id number] [place] [address]- 8678 Sep, [facility] [place] [facility] [address] [id number] [place] [address]- 1766 Sep, [facility] [place] [facility] [address] [id number] [place] [address]- 9327 Sep, [facility] [place] [facility] [address] [id number] [place] [address]- 2956 Sep, [facility] [place] [facility] [address] [id number] [place] [address]- 6345 Sep, [facility] [place] [facility] [address] [id number] [place] [address]- 1704 Sep, [facility] [place] [facility] [address] [id number] [place] [address]- 1437 Sep, [facility] [place] [facility] [address] [id number] [place] [address]- 9810 Sep, [facility] [place] [facility] [address] [id number] [place] [address]- 3770 Aug, [facility] [place] [facility] [address] [id number] [place] [address]- 7137 Aug, [facility] [place] [facility] [address] [id number] [place] [address]- 7132 Aug, [facility] [place] [facility] [address] [id number] [place] [address]- 3859 Aug, [facility] [place] [facility] [address] [id number] [place] [address]- 8905 Aug, [facility] [place] [facility] [address] [id number] [place] [address]- 2953 Aug, [facility] [place] [facility] [address] [id number] [place] [address]- 8454 Aug, [facility] [place] [facility] [address] [id number] [place] [address]- 4756 Aug, [facility] [place] [facility] [address] [id number] [place] [address]- 1124 Jul, [facility] [place] [facility] [address] [id number] [place] [address]- 3000 Jul, [facility] [place] [facility] [address] [id number] [place] [address]- 2110 Jul, [facility] [place] [facility] [address] [id number] [place] 5072 Jul, [facility] [place] [facility] [address] [id number] [place] 2418 Jul, [facility] [place] [facility] [address] [id number] [place] [address]- 2482 Jul, [facility] [place] [facility] [address] [id number] [place] [address]- 9428 Jul, [facility] [place] [facility] [address] [id number] [place] [address]- 5058 Jul, [facility] [place] [facility] [address] [id number] [place] [address]- 5404 Jul, [facility] [place] [facility] [address] [id number] [place] [address]- 0429 Jul, [facility] [place] [facility] [address] [id number] [place] [address]- 8267 Jul, [facility] [place] [facility] [address] [id number] [place] [address]- 5821 Jun, [facility] [place] [facility] [address] [id number] [place] [address]- 3550 Jun, [facility] [place] [facility] [address] [id number] [place] [address]- 6114 Jun, [facility] [place] [facility] [address] [id number] [place] [address]- 6891 Jun, [facility] [place] [facility] [address] [id number] [place] [address]- 6673 Jun, [facility] [place] [facility] [address] [id number] [place] [address]- 8546 Jun, [facility] [place] [facility] [address] [id number], [place] [address]- 7445 Jun, [facility] [place] [facility] [address] [id number] [place] [address]- 6437 Jun, [facility] [place] [facility] [address] [id number] [place] [address]- 9625 Jun, [facility] [place] [facility] [address] [id number], [place] [address]- 1984 Jun, [facility] [place] [facility] [address] [id number] [place] [address]- 8620 17 Jun, 2013 [facility] [place] [facility] [address] [id number] [place] [address]- 4360 16 Jun, 2013 [facility] [place] [facility] [address] [id number] [place] 3806 16 Jun, 2013 [facility] [place] [facility] [address] [id number] [place] [address]- 3049 Jun, 2013 [facility] [place] [facility] [address] [id number] [place] [address]- 7762 Jun, 2013 [facility] [place] [facility] [address] [id number] [place] [address]- 9521 Jun, [facility] [place] [facility] [address] [id number] [place] [address]- 6461 Jun, 2013 [facility] [place] [facility] [address] [id number] [place] [address]- 4505 25 May, 2013 [facility] [place] [facility] [address] [id number] [place] [address] 2544 11 May, 2013 [facility] [place] [facility] [address] [id number] [place] [address]- 2548 11 May, 2013 [facility] [place] [facility] [address] [id number] [place] [address] 2545 04 May, 2013 [facility] [place] [facility] [address] [id number] [place] [address]- 2544 04 May, 2013 [facility] [place] [facility] [address] [id number] [place] [address] 2544 03 May, 2013 [facility] [place] [facility] [address] [id number] [place] [address] 2546 May, 2013 [facility] [place] [facility] [address] [id number] [place] [address]- 4724 Apr, [facility] [place] [facility] [address] [id number] [place] [address]- 8006 Apr, [facility] [place] [facility] [address] [id number] [place] [address]- 0161 Apr, [facility] [place] [facility] [address] [id number] [place] [address]- 7985 Apr, [facility] [place] [facility] [address] [id number] [place] [address]- 5367 Apr, [facility] [place] [facility] [address] [id number] [place] [address]- 2098 Apr, [facility] [place] [facility] [address] [id number] [place] [address]- 9820 Apr, [facility] [place] [facility] [address] [id number] [place] [address]- 3948 Apr, [facility] [place] [facility] [address] [id number] [place] [address]- 7023 Apr, [facility] [place] [facility] [address] [id number] [place] [address]- 2151 Apr, [facility] [place] [facility] [address] [id number] [place] [address]- 0425 Apr, [facility] [place] [facility] [address] [id number] [place] [address]- 8761 Mar, [facility] [place] [facility] [address] [id number] [place] [address]- 9054 Mar, [facility] [place] [facility] [address] [id number], [place] [address]- 2499 Mar, [facility] [place] [facility] [address] [id number] [place] [address]- 0377 Mar, [facility] [place] [facility] [address] [id number] [place] [address] Feb, [facility] [place] [facility] [address] [id number] [place] [address] Feb, [facility] [place] [facility] [address] [id number] [place] [address] Feb, [facility] [place] [facility] [address] [id number] [place] [address] Feb, [facility] [place] [facility] [address] [id number] [place] [address] Feb, [facility] [place] [facility] [address] [id number] [place] [address] Feb, [facility] [place] [facility] [address] [id number] [place] [address] Feb, [facility] [place] [facility] [address] [id number] [place] [address] Feb, [facility] [place] [facility] [address] [id number] [place] [address] January, [facility] [place] [facility] [address] [id number] [place] [address] January, [facility] [place] [facility] [address] [id number] [place] [address] January, [facility] [place] [facility] [address] [id number] [place] [address] January, [facility] [place] [facility] [address] [id number] [place] [address] Dec, [facility] [place] [facility] [address] [id number] [place] [address] Dec, [facility] [place] [facility] [address] [id number] [place] [address] Dec, [facility] [place] [facility] [address] [id number] [place] [address]- [address] Dec, [facility] [place] [facility] [address] [id number] [place] [address]- [address] Dec, [facility] [place] [facility] [address] [id number] [place] [address]- [address] Dec, [facility] [place] [facility] [address] [id number] [place] [address]- [address] Dec, [facility] [place] [facility] [address] [id number] [place] [address]- [address] Dec, [facility] [place] [facility] [address] [id number] [place] [address]- [address] Dec, [facility] [place] [facility] [address] [id number] [place] [address]- [address] Dec, [facility] [place] [facility] [address] [id number] [place] [address]- [address] Nov, [facility] [place] [facility] [address] [id number] [place] [address] Nov, [facility] [place] [facility] [address] [id number] [place] [address]- [address] Nov, [facility] [place] [facility] [address] [id number] [place] [address]- [address] Nov, [facility] [place] [facility] [address] [id number] [place] [address]- [address] Nov, [facility] [place] [facility] [address] [id number] [place] [address]- [address] Oct, [facility] [place] [facility] [address] [id number] [place] [address] Oct, [facility] [place] [facility] [address] [id number] [place] [address]- [address] Sep, [facility] [place] [facility] [address] [id number] [place] [address]- [address] Sep, [facility] [place] [facility] [address] [id number] [place] [address]- [address] Sep, [facility] [place] [facility] [address] [id number] [place] [address] Sep, [facility] [place] [facility] [address] [id number], [place] [address] Aug, [facility] [place] [facility] [address] [id number] [place] [address] Aug, [facility] [place] [facility] [address] [id number], [place] [address] Aug, [facility] [place] [facility] [address] [facility] [id number] [place] [address]- [address]26 Aug, [facility] [place] [facility] [address] [id number], [place] [address] Aug, [facility] [place] [facility] [address] [facility] [id number] [place] [address]- [address] Aug, [facility] [place] [facility] [address] [facility] [id number] [place] [address]- [address] Aug, [facility] [place] [facility] [address] [facility] [id number], [place] [address] Aug, [facility] [place] [facility] [address] [facility] [id number], [place] [address] Jul, [facility] [place] [facility] [address] [facility] [id number], [place] [address] Jul, [facility] [place] [facility] [address] [facility] [id number], [place] [address] Jul, [facility] [place] [facility] [address] [facility] [id number][place] [address] Jul, [facility] [place] [facility] [address] [facility] [id number], [place] [address] Jun, [facility] [place] [facility] [address] [facility] [id number], [place] [address] Jun, [facility] [place] [facility] [address] [facility] [id number], [place] [address] Jun, [facility] [place] [facility] [address] [facility] [id number], [place] [address] Jun, [facility] [place] [facility] [address] [id number] [place] [address] 07 Jun, 2013 [facility] [address] [id number] [place] [address] May, [facility] [place] [facility] [address] [id number] [place] [address] Apr, [facility] [place] [facility] [address] [id number] [place] [address] Apr, [facility] [place] [facility] [address] [id number] [place] [address] Mar, [facility] [place] [facility] [address] [id number] [place] [address] Feb, [facility] [place] [facility] [address] [id number] [place] [address] Feb, [facility] [place] [facility] [address] [id number] [place] [address] January, [facility] [address] [id number] [place] [address] January, [facility] [place] [facility] [address] [id number] [place] [address] January, [facility] [place] [facility] [address] [id number] [place] [address] Nov, [facility] [place] [facility] [address] [id number] [place] [address] Oct, [facility] [place] [facility] [address] [id number] [place] [address] Oct, [facility] [place] [facility] [address] [id number] [place] [address] Oct, [facility] [place] [facility] [address] [id number] [place] [address] Sep, [facility] [place] [facility] [address] [id number] [place] [address] Sep, [facility] [place] [facility] [address] [id number] [place] [address]- [address] Aug, [facility] [place] [facility] [address] [id number] [place] [address] 8589 Aug, [facility] [place] [facility] [address] [id number] [place] [address] 2797 Jul, [facility] [place] [facility] [address] [id number] [place] [address]- [address]32 Jul, [facility] [place] [facility] [address] [id number] [place] [address]- 8676 Jul, [facility] [place] [facility] [address] [id number] [place] [address]- 8271 Jul, [facility] [place] [facility] [address] [id number] [place] [address] 60[address] Jul, [facility] [place] [facility] [address] [id number], [place] [address] Jul, [facility] [place] [facility] [address] [id number] [place] [address] 79[address] Jul, [facility] [place] [facility] [address] [id number] [place] [address]- 0710 Jul, [facility] [place] [facility] [address] [id number], [place] [address] Jul, [facility] [place] [facility] [address] [id number], [place] [address] Jul, [facility] [place] [facility] [address] [id number], [place] [address]- [address] Jul, [facility] [place] [facility] [address] [id number], [place] [address] Jul, [facility] [place] [facility] [address] [id number], [place] [address] Jul, [facility] [place] [facility] [address] [id number] [place] [address]- 7769 Jul, [facility] [address] [id number] [place] [address]- [address]171 Jun, [facility] [place] [facility] [address] [id number] [place] [address]- 7[address] Jun, [facility] [address] [id number] [place] [address]- 7335 Jun, [facility] [place] [facility] [address] [id number] [place] [address]- 5860 Jun, [facility] [address] [id number] [place] [address]- 6[address] Jun, [facility] [place] [facility] [address] [id number] [place] [address]- 7739 Jun, [facility] [address] [id number] [place] [address]- 7614 Jun, [facility] [address] [id number] [place] [address]- 2828 Apr, [facility] [place] [facility] [address] [id number] [place] [address]- 0633 Apr, [facility] [address] [id number] [place] [address]- [address] Mar, [facility] [place] [facility] [address] [id number] [place] [address]- [address]60 Feb, [facility] [place] [facility] [address] [id number] [place] [address]- 1488 Feb, [facility] [place] [facility] [address] [id number] [place] [address]800 January, [facility] [place] [facility] [address] [id number] [place] [address]- 6546 January, [facility] [place] [facility] [address] [id number] [place] [address]- 2934 Dec, [facility] [place] [facility] [address] [id number] [place] [address]- 0073 Dec, [facility] [place] [facility] [address] [id number] [place] [address]- 6206 Nov, [facility] [place] [facility] [address] [id number] [place] [address]- 7156 Oct, [facility] [place] [facility] [address] [id number] [place] [address]- 2250 Oct, [facility] [place] [facility] [address] [id number] [place] [address]- 0213 Oct, [facility] [place] [facility] [address] [id number] [place] [address]- 4013 Sep, [facility] [place] [facility] [address] [id number] [place] [address]- [address]48 14 Aug, 2011 [facility] [place] [facility] [address] [id number] [place] [address]- 9465 14 Aug, 2011 [facility] [place] [facility] [address] [id number] [place] [address]- 9863 Aug, [facility] [place] [facility] [address] [id number] [place] [address]- 0973 Aug, [facility] [place] [facility] [address] [id number] [place] [address]- 0660 Aug, [facility] [place] [facility] [address] [id number], [place] [address] Jul, [facility] [place] [facility] [address] [id number] [place] [address]- 3923 Jul, [facility] [place] [facility] [address] [id number] [place] [address]- 0411 Jul, [facility] [place] [facility] [address] [id number] [place] [address]- 0202 Jul, [facility] [place] [facility] [id number], [place] [address] Aug, [facility] [id number], [place] [address] Aug, [facility] [id number], [place] [address]- 79[address] Aug, [facility] [id number] [place] [address]- 8986 Jun, [facility] [id number] [place] [address]- 2590 Jun, [facility] [id number] [place] [address]- 8653 Jun, [facility] [id number] [place] [address]- 9477 Jun, [facility] [id number] [place] [address]- 2704 Jun, [facility] [id number] [place] [address]- 5662 Jul, [facility] [id number] [place] [address]- 4204 Jul, [facility] [id number], [place] [address]- [address] Jun, [facility] [id number], [place] [address] 8757 Jun, IMMUNIZATIONS No Known Immunizations SOCIAL HISTORY Never Assessed REASON FOR VISIT Controlled Med Refill 11/16/17 PLAN OF CARE VITAL SIGNS MEDICATIONS Medication Instructions Dosage Frequency Start Date End Date Duration Status Hydrocodone-Acetaminophen 7.5-325 MG Orally 3 times a day 1 tablet as needed for pain 8h Oct, 28 days Active RESULTS No Results PROCEDURES [...]
--- OUTSIDE RECORDS SUMMARY | 2018-05-26 08:22 | XMS REPORT ---
Author Author LASHAY BLACK Organization [facility] Address [address] [place] [address] Care Team Providers Care Aviation Engineer Name Role Phone LASHAY BLACK Unavailable PROBLEMS Type Condition ICD9-CM Code [id number] Code Onset Dates Condition Status SNOMED Code Problem Irritable bowel syndrome with diarrhea K58.0 Active 479817872 Problem Venous vascular malformations Q27.9 Active 160437595 Problem Chronic obstructive pulmonary disease, unspecified COPD type J44.9 Active 33298266 Problem Primary insomnia F51.01 Active 8434774 Problem Migraine without aura and without status migrainosus, not intractable G43.009 Active 293123984 Problem 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 044154765 Problem Hypercholesterolemia E78.00 Active 89922284 Problem Post concussion syndrome F07.81 Active 71540977 Problem Other headache syndrome G44.89 Active 369169664 Problem Unspecified asthma, uncomplicated J45.909 Active 340303172 Problem Cervicalgia M54.2 Active 54962568 Problem Other chronic pain G89.29 Active 31527443 Problem Hypertension I10 Active 05769412 Problem Idiopathic sleep related nonobstructive alveolar 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 Active 53833023 Problem Anxiety F41.9 Active 30629112 Problem Obstructive sleep apnea G47.33 Active 44285782 ALLERGIES Substance Reaction Event Type Date Status Penicillin V Potassium Unknown Drug Allergy Jun, Active Cardura XL Unknown Drug Allergy Jun, Active ENCOUNTERS Encounter Location Date Diagnosis [facility] [address] [facility] [id number] [address] January, [facility] [address] [facility] [id number], [place] [address] Dec, Drug-induced constipation K59.03 ; Fatigue, unspecified type R53.83 ; Forgetfulness R68.89 ; Other chronic pain G89.29 and Primary insomnia F51.01 [facility] [id number] [place] [address] 00299- 2851 Nov, [facility] [id number] [place] [address] 80236- 0816 Oct, Other chronic pain G89.29 [facility] [id number] [place] [address] 86876- 8737 Sep, Other chronic pain G89.29 [facility] [id number] [place] [address] 62998- 9949 Sep, Other chronic pain G89.29 [place] [address] [address]- [address] 05 Aug, 2017 Other chronic pain G89.29 [facility] [id number] [place] [address] 67299- 6301 Jul, Other chronic pain G89.29 ; Encounter for immunization Z23 and Side effects of treatment, initial encounter T88.9XXA [facility] [id number] [place] [address] 93756- 9012 07 Jul, 2017 Other chronic pain G89.29 [facility] [id number] [place] [address] 07160 -5071 Jul, [facility] [id number] [place] [address] 05815- 9592 Jul, Encounter for immunization Z23 [facility] [id number] [place] [address] 25910- 7245 Jun, Hypertension I10 ; Other headache syndrome G44.89 ; Post concussion syndrome F07.81 and Other chronic pain G89.29 [facility] [id number] [place] [address] 09060- 8640 May, [facility] [id number] [place] [address] 80111- 5644 May, Migraine without aura and without status migrainosus, not intractable G43.009 [facility] [address] [address] May, 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 [facility] [id number] [place] [address] 93128- 9506 May, Other chronic pain G89.29 [facility] [id number] [place] [address] 43399- 8846 Apr, Chronic obstructive pulmonary disease, unspecified COPD type J44.9 [facility] [id number] [place] [address] 37236- 0907 Apr, Chronic obstructive pulmonary disease, unspecified COPD type J44.9 [facility] [id number] [place] [address] 66899- 8993 Apr, Other chronic pain G89.29 ; Irritable bowel syndrome with diarrhea K58.0 and Hypercholesterolemia E78.00 [facility] [id number] [place] [address] 98073- 7593 Apr, Other chronic pain G89.29 [facility] [id number] [place] [address] 84072- 3207 Mar, Other chronic pain G89.29 [facility] [id number] [place] [address] 54384- 8822 Feb, 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 [facility] [id number] [place] [address] 61706- 5288 Feb, Other chronic pain G89.29 [facility] [address], [place] [address] 3737 Feb, [facility] [id number] [place] [address] 79433- 1916 January, [facility] [id number] [place] [address] 51549- 9675 January, Other chronic pain G89.29 [facility] [id number] [address] 6380 January, [facility] [id number] [place] [address] 43656- 4194 January, [facility] [id number] [place] [address] 17560- 8185 January, Other chronic pain G89.29 ; Irritable bowel syndrome with diarrhea K58.0 and Hypercholesterolemia E78.00 [facility] [id number] [place] [address] 37529- 1177 January, Other chronic pain G89.29 ; Hypertension I10 ; Irritable bowel syndrome with diarrhea K58.0 ; Chronic obstructive pulmonary disease, unspecified COPD type J44.9 and Venous vascular malformations Q27.9 [facility] [id number] [place] [address] 71845 -9330 January, Acute otitis externa of right ear, unspecified type H60.501 [facility] [id number] [place] [address] 07674- 6665 Dec, Other chronic pain G89.29 [facility] [id number] [place] [address] 05725- 8924 Dec, Hypertension I10 [facility] [id number] [place] [address] 81798- 1419 Nov, Other chronic pain G89.29 [facility] [id number] [place] [address] 62275- 7642 Oct, Other chronic pain G89.29 [facility] [id number] [place] [address] 82507- 9428 Sep, Other chronic pain G89.29 [facility] [id number] [place] [address] 50675- 2539 Sep, Hypertension I10 [facility] [id number] [place] [address] 18145- 3133 Sep, Other chronic pain G89.29 [facility] [id number] [place] [address] 26709- 8981 Aug, Arthralgia, unspecified joint M25.50 ; Other chronic pain G89.29 ; Obstructive sleep apnea G47.33 and Idiopathic sleep related nonobstructive alveolar 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 [facility] [id number] [place] [address] 66521- 4885 Aug, [place] [id number] [place] [address] 69732- 3386 Aug, Other chronic pain G89.29 [place] [id number] [place] [address] 42465- 1533 Jul, Chronic obstructive pulmonary disease, unspecified COPD type J44.9 and Diarrhea, unspecified type R19.7 [place] [id number] [place] [address] 74551- 5514 Jul, Other chronic pain G89.29 [place] [id number] [place] [address] 15178- 7843 Jul, Skin tags, multiple acquired L91.8 [place] [id number] [place] [address] 65311- 7812 Jun, [place] [id number] [place] [address] 65311- 6070 Jun, Hypertension I10 [place] [id number] [place] [address] 85779- 7642 May, Mouth pain K13.79 and Other chronic pain G89.29 [facility] [id number] [place] [address] 72735- 4143 May, [place] [id number] [place] [address] 61613- 8232 May, [facility] [id number] [place] [address] 76072- 7121 May, Pain in right knee M25.561 and Other chronic pain G89.29 [place] [address], [place] [address]- 1646 Apr, Cervicalgia M54.2 [place] [id number] [place] [address] 47618- 8443 Mar, Cervicalgia M54.2 [place] [id number] [place] [address] 88562- 2104 27 Feb, 2016 Fever, unspecified fever cause R50.9 and Arthralgia, unspecified joint M25.50 [place] [id number] [place] [address] 83608- 2899 15 Feb, 2016 Hypertension I10 and Chronic pain syndrome G89.4 [place] [id number] [place] [address] 58528- 8086 08 Feb, 2016 Cervicalgia M54.2 [place] [id number] [place] [address] 19150- 6597 January, [place] [id number] [place] [address] 05048- 2683 13 Dec, 2015 Chest pain R07.9 ; Family history of early CAD Z82.49 ; Hypertension I10 ; Fatigue R53.83 and History of IBS Z87.19 [place] [id number] [place] [address] 86374- 4636 Dec, [place] [id number] [place] [address] 68418- 7448 Nov, Allergic rhinitis J30.9 [place] [id number] [place] [address] 15151- 2621 Nov, [place] [id number] [place] [address] 65847- 0411 Nov, Hypertension I10 and Anxiety F41.9 [place] [id number] [place] [address] 34307- 2960 Nov, [place] [id number] [place] [address] 64655- 6099 Oct, [facility] [id number] [place] [address] 66193- 7229 Oct, Chest pain R07.9 ; Family history of early CAD Z82.49 ; Hypertension I10 ; Fatigue R53.83 and History of IBS Z87.19 [facility] [address] 91520- 6553 Oct, [facility] [id number] [place] [address] 48061- 4360 Oct, Chest pain, unspecified R07.9 [place] [address] 53458- 4732 08 Oct, 2015 Chest pain, unspecified R07.9 ; Irritable bowel syndrome with diarrhea K58.0 ; Fatigue R53.83 and Degenerative disc disease, cervical M50.30 [facility] [id number] [place] [address] 73833- 0490 Oct, [facility] [id number] [place] [address] 01950- 1301 Oct, [facility] [id number] [place] [address] 12140- 0764 Sep, [facility] [id number] [place] [address] 22173- 4172 Sep, [facility] [id number] [place] [address] 07926- 6740 Aug, [facility] [id number] [place] [address] 25854- 6790 Aug, [facility] [id number] [place] [address] 15480- 4836 Aug, [facility] [id number] [place] [address] 73899- 3370 Jul, Cervicalgia M54.2 ; Headache R51 ; Post-traumatic headache, unspecified, not intractable G44.309 and Unspecified intracranial injury without loss of consciousness, sequela S06.9X0S [facility] [id number] [place] [address] 643775- 6620 Jul, [facility] [id number] [place] [address] 23083- 1096 Jul, [facility] [id number] [place] [address] 81662- 9678 Jun, [facility] [id number] [place] [address] 67111- 9569 Jun, Encounter for immunization Z23 [facility] [id number] [place] [address] 33954- 5830 Jun, [facility] [id number] [place] [address] 97175- 4220 May, [facility] [id number] [place] [address] 35892- 0025 May, [facility] [id number] [place] [address] 52892- 3894 Apr, [facility] [id number] [place] [address] 68027- 6931 Apr, [facility] [address], [place] [address]- 5392 Apr, [facility] [id number] [place] [address] 95934- 2627 Mar, [facility] [id number] [place] [address] 858227- 6790 Mar, [facility] [id number] [place] [address] 60590- 8030 Mar, [facility] [id number] [address]- 0740 Feb, [facility] [address] [place] [address]- 8463 Feb, [facility] [place] [facility] [address] [id number] [place] [address]- 8267 January, [facility] [place] [facility] [address] [id number] [place] [address]- 7154 January, [facility] [place] [facility] [address] [id number] [place] [address]- 5982 Dec, [facility] [place] [facility] [address] [id number] [place] [address]- 5337 Dec, [facility] [place] [facility] [address] [id number] [place] [address]- 5410 Nov, [facility] [place] [facility] [address] [id number] [place] [address]- 8717 Nov, [facility] [place] [facility] [address] [id number] [place] [address]- 9946 Nov, [facility] [place] [facility] [address] [id number] [place] [address]- 1463 Nov, [facility] [place] [facility] [address] [id number] [place] [address]- 3193 Nov, [facility] [place] [facility] [address] [id number] [place] [address]- 6245 Nov, [facility] [place] [facility] [address] [id number] [place] [address]- 6010 Nov, [facility] [place] [facility] [address] [id number] [place] [address]- 8931 Nov, [facility] [place] [facility] [address] [id number] [place] [address]- 5507 Nov, [facility] [place] [facility] [address] [id number] [place] 1445 Nov, [facility] [place] [facility] [address] [id number] [place] [address]- 0093 Nov, [facility] [place] [facility] [address] [id number] [place] [address]- 9919 Nov, [facility] [place] [facility] [address] [id number] [place] [address]- 6249 Nov, [facility] [place] [facility] [address] [id number] [place] [address]- 9338 Nov, [facility] [place] [facility] [address] [id number] [place] [address]- 0921 Oct, [facility] [place] [facility] [address] [id number] [place] [address]- 0061 Oct, [facility] [place] [facility] [address] [id number] [place] [address]- 1461 Oct, [facility] [place] [facility] [address] [id number] [place] [address]- 6455 Oct, [facility] [place] [facility] [address] [id number] [place] [address]- 8432 Sep, [facility] [place] [facility] [address] [id number] [place] [address]- 7190 Sep, [facility] [place] [facility] [address] [id number] [place] [address]- 0957 Sep, [facility] [place] [facility] [address] [id number] [place] [address]- 1207 Sep, [facility] [place] [facility] [address] [id number] [place] [address]- 3102 Sep, [facility] [place] [facility] [address] [id number] [place] [address]- 3951 Sep, [facility] [place] [facility] [address] [id number] [place] [address]- 7031 Sep, [facility] [place] [facility] [address] [id number] [place] [address]- 5178 Sep, [facility] [place] [facility] [address] [id number] [place] [address]- 6793 Aug, [facility] [place] [facility] [address] [id number] [place] [address]- 1619 Aug, [facility] [place] [facility] [address] [id number] [place] [address]- 9566 Aug, [facility] [place] [facility] [address] [id number] [place] [address]- 1227 Aug, [facility] [place] [facility] [address] [id number] [place] [address]- 3387 Aug, [facility] [place] [facility] [address] [id number] [place] [address]- 2163 Aug, [facility] [place] [facility] [address] [id number] [place] [address]- 6613 Aug, [facility] [place] [facility] [address] [id number] [place] [address]- 3130 Aug, [facility] [place] [facility] [address] [id number] [place] [address]- 0347 Jul, [facility] [place] [facility] [address] [id number] [place] [address]- 6986 Jul, [facility] [place] [facility] [address] [id number] [place] [address]- 9732 Jul, [facility] [place] [facility] [address] [id number] [place] [address]- 3192 Jul, [facility] [place] [facility] [address] [id number], [place] [address]- 1597 Jul, [facility] [place] [facility] [address] [id number] [place] [address]- 6801 Jul, [facility] [place] [facility] [address] [id number] [place] [address]- 6258 Jul, [facility] [place] [facility] [address] [id number] 3003 Jul, [facility] [place] [facility] [address] [id number] [place] [address]- 0915 Jul, [facility] [place] [facility] [address] [id number] [place] [address]- 1652 Jul, [facility] [place] [facility] [address] [id number] [place] [address]- 4324 Jul, [facility] [place] [facility] [address] [id number] [place] [address]- 3357 Jun, [facility] [place] [facility] [address] [id number] [place] 9519 Jun, [facility] [place] [facility] [address] [id number] [place] [address]- 5992 Jun, [facility] [place] [facility] [address] [id number] [place] [address]- 1053 Jun, [facility] [place] [facility] [address] [id number] [place] [address]- 8806 Jun, [facility] [place] [facility] [address] [id number] [place] [address]- 3829 Jun, [facility] [place] [facility] [address] [id number] [place] [address]- 3703 Jun, [facility] [place] [facility] [address] [id number] [place] [address]- 3916 Jun, [facility] [place] [facility] [address] [id number] [place] [address]- 1932 Jun, [facility] [place] [facility] [address] [id number] [place] 9118 24 Jun, 2014 [facility] [place] [facility] [address] [id number] [place] [address]- 6688 Jun, [facility] [place] [facility] [address] [id number] [place] [address]- 3161 16 Jun, 2014 [facility] [place] [facility] [address] [id number] [place] [address]- 6800 16 Jun, 2014 [facility] [place] [facility] [address] [id number] [place] [address]- 7400 Jun, [facility] [place] [facility] [address] [id number] [place] [address]- 4630 Jun, [facility] [place] [facility] [address] [id number] [place] [address]- 9752 Jun, [facility] [place] [facility] [address] [id number] [place] [address]- 9155 Jun, [facility] [place] [facility] [address] [id number] [place] [address] 25 May, 2013 [facility] [place] [facility] [address] [id number] [place] [address] May, 2013 [facility] [place] [facility] [address] [id number] [place] [address] May, 2013 [facility] [place] [facility] [address] [id number], [place] [address] 04 May, 2013 [facility] [place] [facility] [address] [id number] [place] [address] 04 May, 2013 [facility] [place] [facility] [address] [id number] [place] [address] May, [facility] [place] [facility] [address] [id number], [place] [address] May, 2013 [facility] [place] [facility] [address] [id number], [place] [address] Apr, [facility] [place] [facility] [address] [id number] [place] [address] Apr, [facility] [place] [facility] [address] [id number], [place] [address] Apr, [facility] [place] [facility] [address] [id number] [place] [address] Apr, [facility] [place] [facility] [address] [id number] [place] [address] Apr, [facility] [place] [facility] [address] [id number] [place] [address] Apr, [facility] [place] [facility] [address] [id number] [place] [address] Apr, [facility] [place] [facility] [address] [id number] [place] [address] Apr, [facility] [place] [facility] [address] [id number] [place] [address] Apr, [facility] [place] [facility] [address] [id number] [place] [address] Apr, [facility] [place] [facility] [address] [id number] [place] [address] Apr, [facility] [place] [facility] [address] [id number] [place] [address] Mar, [facility] [place] [facility] [address] [id number] [place] [address] Mar, [facility] [place] [facility] [address] [id number] [place] [address] Mar, [facility] [place] [facility] [address] [id number] [place] [address] Mar, [facility] [place] [facility] [address] [id number] [place] [address] Feb, [facility] [place] [facility] [address] [id number] [place] [address] Feb, [facility] [place] [facility] [address] [id number] [place] [address] Feb, [facility] [place] [facility] [address] [id number] [place] [address] Feb, [facility] [place] [facility] [address] [id number] [place] [address] Feb, [facility] [place] [facility] [address] [id number] [place] [address] Feb, [facility] [place] [facility] [address] [id number] [place] [address] Feb, [facility] [place] [facility] [address] [id number] [place] [address] Feb, [facility] [place] [facility] [address] [id number] [place] [address] January, [facility] [place] [facility] [address] [id number] [place] [address] January, [facility] [place] [facility] [address] [id number] [place] [address] January, [facility] [place] [facility] [address] [id number] [place] [address] January, [facility] [place] [facility] [address] [id number] [place] [address] Dec, [facility] [place] [facility] [address] [id number] [place] [address] Dec, [facility] [place] [facility] [address] [id number] [place] [address] Dec, [facility] [place] [facility] [address] [id number] [place] [address] Dec, [facility] [place] [facility] [address] [id number] [place] [address] Dec, [facility] [place] [facility] [address] [id number] [place] [address] Dec, [facility] [place] [facility] [address] [id number] [place] [address]79 Dec, [facility] [place] [facility] [address] [id number] [place] [address] Dec, [facility] [place] [facility] [address] [id number] [place] [address] Dec, [facility] [place] [facility] [address] [id number] [place] [address] Dec, [facility] [place] [facility] [address] [id number] [place] [address] Nov, [facility] [place] [facility] [address] [id number] [place] [address] Nov, [facility] [place] [facility] [address] [id number] [place] [address] Nov, [facility] [place] [facility] [address] [id number] [place] [address] Nov, [facility] [place] [facility] [address] [id number] [place] [address] Nov, [facility] [place] [facility] [address] [facility] [id number] [place] [address] Oct, [facility] [place] [facility] [address] [id number] [place] [address] Oct, [facility] [place] [facility] [address] [id number] [place] [address] Sep, [facility] [place] [facility] [address] [facility] [id number] [place] [address] Sep, [facility] [place] [facility] [address] [id number] [place] [address] Sep, [facility] [place] [facility] [address] [id number] [place] [address] Sep, [facility] [place] [facility] [address] [id number] [place] [address] Aug, [facility] [place] [facility] [address] [id number] [place] [address] Aug, [facility] [place] [facility] [address] [facility] [id number] [place] [address] Aug, [facility] [place] [facility] [address] [id number] [place] [address] 05 Aug, 2012 [facility] [place] [facility] [address] [id number] [place] [address] Aug, [facility] [place] [facility] [address] [id number] [place] [address] Aug, [facility] [place] [facility] [address] [id number] [place] [address] Aug, [facility] [place] [facility] [address] [id number] [place] [address] 1298 Aug, [facility] [place] [facility] [address] [id number] [place] [address] Jul, [facility] [place] [facility] [address] [id number] [place] [address] Jul, [facility] [place] [facility] [address] [id number] [place] [address] Jul, [facility] [place] [facility] [address] [id number] [place] [address] Jul, [facility] [place] [facility] [address] [id number] [place] [address] Jun, [facility] [place] [facility] [address] [facility] [id number] [place] [address] Jun, [facility] [place] [facility] [address] [id number] [place] [address]26 Jun, [facility] [place] [facility] [address] [id number] [place] [address] 45[address] Jun, [facility] [place] [facility] [address] [id number] [place] [address]98 Jun, [facility] [place] [facility] [address] [id number] [place] [address] May, [facility] [place] [facility] [address] [id number] [place] [address] Apr, [facility] [address] [id number] [place] [address] Apr, [facility] [place] [facility] [address] [id number] [place] [address] Mar, [facility] [place] [facility] [address] [id number] [place] [address] 1417 Feb, [facility] [place] [facility] [address] [id number] [place] [address] Feb, [facility] [place] [facility] [address] [id number] [place] [address] January, [facility] [place] [facility] [address] [id number] [place] [address] January, [facility] [place] [facility] [address] [id number] [place] [address] January, [facility] [place] [facility] [address] [id number] [place] [address] 7668 Nov, [facility] [place] [facility] [address] [id number] [place] [address] Oct, [facility] [place] [facility] [address] [id number] [place] [address] Oct, [facility] [place] [facility] [address] [id number] [place] [address] 9206 Oct, [facility] [place] [facility] [address] [id number], [place] [address] Sep, [facility] [place] [facility] [address] [id number] [place] [address] 285[address] Sep, [facility] [place] [facility] [address] [id number] [place] [address] Aug, [facility] [place] [facility] [address] [id number] [place] [address] 2546 Aug, [facility] [place] [facility] [address] [id number] [place] [address] 8616 Jul, [facility] [place] [facility] [address] [id number] [place] [address] Jul, [facility] [place] [facility] [address] [id number] [place] [address] Jul, [facility] [place] [facility] [address] [id number] [place] [address] 9665 Jul, [facility] [place] [facility] [address] [id number] [place] [address] 9845 Jul, [facility] [place] [facility] [address] [id number] [place] [address] 74[address] Jul, [facility] [place] [facility] [address] [id number] [place] [address] 2488 Jul, [facility] [place] [facility] [address] [id number] [place] [address]- 5498 Jul, [facility] [place] [facility] [address] [id number] [place] [address] 6539 Jul, [facility] [place] [facility] [address] [id number] [place] [address] 7182 Jul, [facility] [place] [facility] [address] [facility] [id number] [place] [address]26 Jul, [facility] [place] [facility] [address] [id number] [place] [address] 3330 Jul, [facility] [place] [facility] [address] [id number], [place] [address] Jul, [facility] [place] [facility] [address] [id number] [place] [address] 7966 Jul, [facility] [place] [facility] [address] [id number] [place] [address] 6960 Jun, [facility] [place] [facility] [address] [id number] [place] [address] 6854 Jun, [facility] [place] [facility] [address] [id number] [place] [address] 4409 Jun, [facility] [place] [facility] [address] [id number] [place] [address] 9777 Jun, [facility] [place] [facility] [address] [id number] [place] [address]- 5428 Jun, [facility] [place] [facility] [address] [id number] [place] [address]- 6313 Jun, [facility] [place] [facility] [address] [id number] [place] [address]- 7294 Jun, [facility] [place] [facility] [address] [id number] [place] [address]- 7281 Apr, [facility] [place] [facility] [address] [id number] [place] [address] 5608 Apr, [facility] [place] [facility] [address] [id number] [place] [address]- 2082 Mar, [facility] [place] [facility] [address] [id number] [place] [address]- 7148 Feb, [facility] [place] [facility] [address] [id number] [place] [address]- 9827 Feb, [facility] [place] [facility] [address] [id number] [place] [address] 56[address] January, [facility] [place] [facility] [address] [id number], [place] [address] January, [facility] [place] [facility] [address] [id number] [place] [address]- 6033 Dec, [facility] [place] [facility] [address] [id number] [place] [address]- 3025 Dec, [facility] [place] [facility] [address] [id number] [place] [address]- 3336 Nov, [facility] [place] [facility] [address] [id number], [place] [address] Oct, [facility] [address] [id number] [place] [address]- 4355 Oct, [facility] [address] [id number] [place] [address]- 9716 08 Oct, 2011 [facility] [address] [id number] [place] [address]- 9160 Sep, [facility] [address] [id number] [place] [address]- 0480 14 Aug, 2011 [facility] [address] [id number] [place] [address] 14 Aug, 2011 [facility] [address] [id number] [place] [address]- 7999 Aug, [facility] [address] [facility] [id number] [place] [address]- 8170 05 Aug, 2011 [facility] [address] [id number] [place] [address]- [address]336 Aug, [facility] [address] [id number] [place] [address]- 8416 Jul, [facility] [address] [facility] [id number] [place] [address] 8050 Jul, [facility] [address] [id number] [place] [address]- 0303 Jul, [facility] [place] [facility] [address] [id number] [place] [address]- 0128 Jul, [facility] [place] [facility] [address] [id number] [place] [address]- 4042 29 Aug, 2010 [facility] [place] [facility] [address] [id number] [place] [address]- 1097 28 Aug, 2010 [facility] [place] [facility] [address] [facility] [id number] [place] [address]- 0662 13 Aug, 2010 [facility] [place] [facility] [id number], [place] [address] Jun, [facility] [id number], [place] [address] Jun, [facility] [id number], [place] [address] 2540 Jun, [facility] [id number] [address] Jun, [facility] [id number] Jun, [facility] [id number] [place] [address] 48[address]73- 3877 Jul, [facility] [address] [id number], [place] [address] Jul, [facility] [address] [id number], [place] [address] 4[address] Jun, [facility] [id number], [place] [address] 1768 Jun, IMMUNIZATIONS No Known Immunizations SOCIAL HISTORY Never Assessed REASON FOR VISIT Pain management (chronic), PT has been having an increase in headaches and high BP-Kvng RODRIGUEZ PLAN OF CARE Activity Details Follow Up 4 Weeks Reason:FU for BP VITAL SIGNS Height 68 in 2017-06-29 Weight 170.2 lbs 2017-06-29 Temperature 98.1 degrees Fahrenheit 2017-06-29 Heart Rate 72 bpm 2017-06-29 Respiratory Rate 18 2017-06-29 BMI 25.88 kg/m2 2017-06-29 Blood pressure systolic 162 mmHg 2017-06-29 Blood pressure diastolic 102 mmHg 2017-06-29 MEDICATIONS Medication Instructions Dosage Frequency Start Date End Date Duration Status Bentyl 20 MG Orally Four times a day 1 tablet 6h 30 Active Amlodipine Besylate 10 mg Orally Once a day 1 tablet 24h Jun, 90 days Active Hydrocodone-Acetaminophen 7.5-325 MG Orally 3 times a day 1 tablet as needed for pain 8h Jun, Jul, 28 days Active Carafate 1 GM TAKE ONE TABLET BY MOUTH FOUR TIMES DAILY BEFORE MEALS AND AT BEDTIME 30 Active Propranolol HCl ER 160 MG Orally Once a day 1 capsule 24h Jun, 90 days Active cyclobenzaprine 10 mg 1 tablet by Oral route 3 times per day PRN Nov 30 Active Flonase Allergy Relief 50 MCG/ACT Nasally twice a day 1 spray in each nostril 12h Nov, Active Advair Diskus 250 mcg-50 mcg 1 puffs 2 times per day Apr, Active Sertraline HCl 100 MG Orally Once a day 1 tablet 24h 90 Active Aspirin Adult Low Strength 81 MG Orally Once a day 1 tablet 24h Active Spiriva HandiHaler 18 MCG Inhalation Once a day 1 capsule 24h January, 30 days Active Tamsulosin HCl 0.4 MG Orally Once a day 1 capsule 30 minutes after the same meal each day 24h 30 Active Imitrex 100 MG Orally Twice a day 1 tablet as needed 12h Active ProAir HFA 108 (90 Base) MCG/ACT Inhalation every 4 hrs 2 puffs as needed 4h Jul, Active Amitriptyline HCl 25 MG TAKE ONE TO TWO TABLETS BY MOUTH ONCE DAILY AT BEDTIME. 30 Active Flomax 0.4 MG TAKE ONE CAPSULE BY MOUTH DAILY 30 Active RESULTS No Results PROCEDURES No Known [...]
--- OUTSIDE RECORDS SUMMARY | 2018-05-26 08:22 | XMS REPORT ---
Author Author LASHAY BLACK Organization [facility] Address [address] [place] [address] Care Team Providers Care Electrical Instrument Technician Name Role Phone LASHAY BLACK Unavailable PROBLEMS Type Condition ICD9-CM Code PRP40-GY Code Onset Dates Condition Status SNOMED Code Problem Obstructive sleep apnea G47.33 Active 29239111 Problem Chronic obstructive pulmonary disease, unspecified COPD type J44.9 Active 25801945 Problem Irritable bowel syndrome with diarrhea K58.0 Active 307336697 Problem Migraine without aura and without status migrainosus, not intractable G43.009 Active 478494249 Problem Post concussion syndrome F07.81 Active 15098497 Problem Hypercholesterolemia E78.00 Active 71973383 Problem Venous vascular malformations Q27.9 Active 248094984 Problem Other headache syndrome G44.89 Active 684903286 Problem 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 260653200 Problem Anxiety F41.9 Active 24818220 Problem Cervicalgia M54.2 Active 93967324 Problem Unspecified asthma, uncomplicated J45.909 Active 224566768 Problem Other chronic pain G89.29 Active 54086218 Problem Hypertension I10 Active 86575438 Problem Idiopathic sleep related nonobstructive alveolar 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 Active 58960843 ALLERGIES No Information ENCOUNTERS Encounter Location Date Diagnosis [facility] [address] [facility] [id number] [address] Dec, [facility] [address], [place] [address] Nov, [facility] [address], [place] [address] Oct, Other chronic pain G89.29 [facility] [id number], [place] [address] Sep, Other chronic pain G89.29 [facility] [id number] [place] [address] 72808- 7518 Sep, Other chronic pain G89.29 [facility] [id number] [place] [address] 03717- 6470 Aug, Other chronic pain G89.29 [facility] [address] [address]- 3200 Jul, Other chronic pain G89.29 ; Encounter for immunization Z23 and Side effects of treatment, initial encounter T88.9XXA [facility] [address] [address]- [address] Jul, Other chronic pain G89.29 [facility] [id number] [place] [address] 35431 -9447 Jul, [facility] [address] 8[address]- [address] Jul, Encounter for immunization Z23 [facility] [id number] [place] [address] 10923- 5500 Jun, Hypertension I10 ; Other headache syndrome G44.89 ; Post concussion syndrome F07.81 and Other chronic pain G89.29 [place] [id number] [place] [address] 04588- 9864 May, [facility] [id number] [place] [address] 79905- 5682 May, Migraine without aura and without status migrainosus, not intractable G43.009 [facility] [id number] [place] [address] 49670- 2391 May, 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 [facility] [id number] [place] [address] 70962- 9078 12 May, 2017 Other chronic pain G89.29 [facility] [address] 49015- 8337 Apr, Chronic obstructive pulmonary disease, unspecified COPD type J44.9 [facility] [id number] [place] [address] 15851- 3717 Apr, Chronic obstructive pulmonary disease, unspecified COPD type J44.9 [facility] [id number] [place] [address] 00838- 2484 Apr, Other chronic pain G89.29 ; Irritable bowel syndrome with diarrhea K58.0 and Hypercholesterolemia E78.00 [facility] [id number] [place] [address] 34726- 6712 Apr, Other chronic pain G89.29 [facility] [id number] [place] [address] 38787- 0868 Mar, Other chronic pain G89.29 [facility] [id number] [place] [address] 88103- 0238 Feb, 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 [facility] [id number] [place] [address] 35336- 3845 Feb, Other chronic pain G89.29 [facility] [id number] [place] [address] 86647- 5739 Feb, [facility] [id number] [place] [address] 66037- 0550 January, [facility] [id number] [place] [address] 14193- 1347 January, Other chronic pain G89.29 [facility] [address], [place] [address] 7720 January, [facility] [id number] [place] [address] 95114- 9992 January, [facility] [id number] [place] [address] 14637- 8916 January, Other chronic pain G89.29 ; Irritable bowel syndrome with diarrhea K58.0 and Hypercholesterolemia E78.00 [facility] [address] [place] [address] 63673- 0886 January, Other chronic pain G89.29 ; Hypertension I10 ; Irritable bowel syndrome with diarrhea K58.0 ; Chronic obstructive pulmonary disease, unspecified COPD type J44.9 and Venous vascular malformations Q27.9 [facility] [id number] [place] [address] 39221 -6516 January, Acute otitis externa of right ear, unspecified type H60.501 [facility] [id number] [place] [address] 44897- 6196 Dec, Other chronic pain G89.29 [place] [id number] [place] [address] 31842- 0717 Dec, Hypertension I10 [place] [id number] [place] [address] 71324- 1555 Nov, Other chronic pain G89.29 [facility] [id number] [place] [address] 51104- 8531 Oct, Other chronic pain G89.29 [facility] [id number] [place] [address] 99380- 0336 Sep, Other chronic pain G89.29 [facility] [address] [place] [address] 78023- 5794 Sep, Hypertension I10 [facility] [id number] [place] [address] 39572- 3694 Sep, Other chronic pain G89.29 [facility] [id number] [place] [address] 71750- 4243 Aug, Arthralgia, unspecified joint M25.50 ; Other chronic pain G89.29 ; Obstructive sleep apnea G47.33 and Idiopathic sleep related nonobstructive alveolar 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 [facility] [id number] [place] [address] 71066- 0507 Aug, [place] [id number] [place] [address] 61035- 3928 Aug, Other chronic pain G89.29 [facility] [id number] [place] [address] 20453- 4090 Jul, Chronic obstructive pulmonary disease, unspecified COPD type J44.9 and Diarrhea, unspecified type R19.7 [facility] [id number] [place] [address] 04292- 0097 Jul, Other chronic pain G89.29 [facility] [id number] [place] [address] 27983- 3765 Jul, Skin tags, multiple acquired L91.8 [facility] [id number] [place] [address] 83497- 0789 Jun, [facility] [id number] [place] [address] 83572- 8436 Jun, Hypertension I10 [facility] [id number] [place] [address] 97805- 5214 May, Mouth pain K13.79 and Other chronic pain G89.29 [facility] [id number] [place] [address] 13546- 0094 May, [facility] [id number] [place] [address] 58305- 2368 May, [facility] [id number] [place] [address] 17985 254 May, Pain in right knee M25.561 and Other chronic pain G89.29 [facility] [id number] [place] [address] 53664- 1416 Apr, Cervicalgia M54.2 [facility] [id number] [place] [address] 93078- 7310 Mar, Cervicalgia M54.2 [facility] [id number] [place] [address] 07186- 4249 Feb, Fever, unspecified fever cause R50.9 and Arthralgia, unspecified joint M25.50 [place] [address] 86684- 5549 15 Feb, 2016 Hypertension I10 and Chronic pain syndrome G89.4 [place] [address] 20034- 2620 08 Feb, 2016 Cervicalgia M54.2 [place] [address] 97996- 9316 January, [place] [address] 07268- 7573 Dec, Chest pain R07.9 ; Family history of early CAD Z82.49 ; Hypertension I10 ; Fatigue R53.83 and History of IBS Z87.19 [place] [address] 19941- 8060 Dec, [place] [address] 47032- 7047 Nov, Allergic rhinitis J30.9 [place] [address] 39511- 5732 Nov, [place] [id number] [place] [address] 75559- 9006 Nov, Hypertension I10 and Anxiety F41.9 [place] [address] 79001- 8127 Nov, [place] [address] 44635- 3515 Oct, [place] [address] 62328- 8926 Oct, Chest pain R07.9 ; Family history of early CAD Z82.49 ; Hypertension I10 ; Fatigue R53.83 and History of IBS Z87.19 [place] [address] 49136- 8329 Oct, [facility] [id number] [place] [address] 21905- 7841 Oct, Chest pain, unspecified R07.9 [facility] [id number] [place] [address] 65129- 4545 Oct, Chest pain, unspecified R07.9 ; Irritable bowel syndrome with diarrhea K58.0 ; Fatigue R53.83 and Degenerative disc disease, cervical M50.30 [facility] [id number] [place] [address] 73144- 5792 Oct, [facility] [id number] [place] [address] 36410- 7637 Oct, [facility] [id number] [place] [address] 14753- 9169 Sep, [facility] [id number] [place] [address] 05013- 2567 Sep, [facility] [id number] [place] [address] 09636- 4527 Aug, [facility] [id number] [place] [address] 91748- 1378 Aug, [facility] [id number] [place] [address] 58546- 1756 Aug, [facility] [id number] [place] [address] 08524- 9189 Jul, Cervicalgia M54.2 ; Headache R51 ; Post-traumatic headache, unspecified, not intractable G44.309 and Unspecified intracranial injury without loss of consciousness, sequela S06.9X0S [facility] [id number] [place] [address] 00931- 3207 Jul, [facility] [id number] [place] [address] 41206- 8676 Jul, [facility] [id number] [address]- 6488 Jun, [facility] [address] [id number] [place] [address]- 0912 Jun, Encounter for immunization Z23 [facility] [place] [facility] [address] [id number] [place] [address]- 8446 Jun, [facility] [place] [facility] [address] [id number] [place] [address]- 2653 May, [facility] [place] [facility] [address] [id number] [place] [address]- 6406 May, [facility] [place] [facility] [address] [id number] [place] [address]- 6030 Apr, [facility] [place] [facility] [address] [id number] [place] [address]- 7889 Apr, [facility] [place] [facility] [address] [id number] [place] [address]- 3094 Apr, [facility] [place] [facility] [address] [id number] [place] [address]- 8533 Mar, [facility] [place] [facility] [address] [id number] [place] [address]- 8417 Mar, [facility] [place] [facility] [address] [facility] [id number] [place] [address]- 0922 Mar, [facility] [place] [facility] [address] [id number] [place] [address]- 6760 Feb, [facility] [place] [facility] [address] [id number] [place] [address]- 0990 Feb, [facility] [place] [facility] [address] [id number] [place] [address]- 1862 January, [facility] [place] [facility] [address] [id number] [place] [address]- 9186 January, [facility] [place] [facility] [address] [id number] [place] [address]- 7481 14 Dec, 2014 [facility] [place] [facility] [address] [id number] [place] [address]- 4110 Dec, [facility] [place] [facility] [address] [id number] [place] [address]- 6015 Nov, [facility] [place] [facility] [address] [id number] [place] [address]- 6678 Nov, [facility] [place] [facility] [address] [id number] [place] [address]- 2270 Nov, [facility] [place] [facility] [address] [id number] [place] [address]- 8926 Nov, [facility] [place] [facility] [address] [id number] [place] [address]- 6982 Nov, [facility] [place] [facility] [address] [id number] [place] [address]- 4849 Nov, [facility] [place] [facility] [address] [id number] [place] [address]- 2322 Nov, [facility] [place] [facility] [address] [id number] [place] [address]- 4625 Nov, [facility] [place] [facility] [address] [id number] [place] [address]- 2602 Nov, [facility] [place] [facility] [address] [id number], [place] [address]- 9616 Nov, [facility] [place] [facility] [address] [id number], [place] [address]- 2638 Nov, [facility] [place] [facility] [address] [id number] [place] [address]- 8551 Nov, [facility] [place] [facility] [address] [id number] [place] [address]- 2773 Nov, [facility] [place] [facility] [address] [id number] [place] [address]- 9170 Nov, [facility] [place] [facility] [address] [id number] [place] [address]- 5147 Oct, [facility] [address] [id number] [place] [address]- 6818 Oct, [facility] [place] [facility] [address] [id number] [place] [address]- 7556 Oct, [facility] [address] [id number] [place] [address]- 7462 Oct, [facility] [place] [facility] [address] [id number] [place] [address]- 7559 Sep, [facility] [address] [id number] [place] [address]- 9579 Sep, [facility] [address] [id number] [place] [address]- 4227 Sep, [facility] [address] [id number] [place] [address]- 2136 Sep, [facility] [address] [id number] [place] [address]- 1687 Sep, [facility] [address] [id number] [place] [address]- 8611 Sep, [facility] [address] [facility] [id number] [place] [address]- 4079 Sep, [facility] [place] [facility] [address] [id number] [place] [address]- 4835 Sep, [facility] [place] [facility] [address] [id number] [place] [address]- 9787 Aug, [facility] [place] [facility] [address] [id number] [place] 3799 Aug, [facility] [place] [facility] [address] [id number] [place] [address]- 2356 Aug, [facility] [place] [facility] [address] [id number] [place] [address]- 4203 Aug, [facility] [place] [facility] [address] [id number] [place] [address]- 3828 Aug, [facility] [place] [facility] [address] [id number] [place] [address]- 8349 Aug, [facility] [place] [facility] [address] [id number] [place] [address]- 2879 Aug, [facility] [place] [facility] [address] [id number] [place] [address]- 7927 Aug, [facility] [place] [facility] [address] [id number] [place] [address]- 6688 Jul, [facility] [place] [facility] [address] [id number] [place] [address]- 7005 Jul, [facility] [place] [facility] [address] [id number] [place] [address]- 4028 Jul, [facility] [place] [facility] [address] [id number] [place] [address]- 8236 Jul, [facility] [place] [facility] [address] [id number] [place] [address]- 4254 Jul, [facility] [place] [facility] [address] [id number], [place] [address]- 4442 Jul, [facility] [place] [facility] [address] [id number], [place] [address]- 8978 Jul, [facility] [place] [facility] [address] [id number], [place] [address]- 1239 Jul, [facility] [place] [facility] [address] [id number], [place] [address]- 1179 Jul, [facility] [place] [facility] [address] [id number], [place] [address]- 0138 Jul, [facility] [place] [facility] [address] [id number], [place] [address]- 1398 Jul, [facility] [place] [facility] [address] [id number], [place] [address]- 6763 30 Jun, 2013 [facility] [place] [facility] [address] [id number] [place] [address]- 0221 30 Jun, 2013 [facility] [place] [facility] [address] [id number] [place] [address]- 7122 30 Jun, 2013 [facility] [place] [facility] [address] [id number] [place] [address]- 9876 30 Jun, 2013 [facility] [place] [facility] [address] [id number] [place] [address]- 6533 Jun, 2013 [facility] [place] [facility] [address] [id number] [place] [address]- 1801 Jun, 2013 [facility] [place] [facility] [address] [id number] [place] [address]- 3707 Jun, 2013 [facility] [place] [facility] [address] [id number], [place] [address]- 1613 Jun, 2013 [facility] [place] [facility] [address] [id number], [place] [address]- 1357 Jun, 2013 [facility] [place] [facility] [address] [id number] [place] [address]- 9770 24 Jun, 2013 [facility] [place] [facility] [address] [id number], [place] [address]- 7146 Jun, 2013 [facility] [place] [facility] [address] [id number], [place] [address]- 7291 16 Jun, 2013 [facility] [place] [facility] [address] [id number], [place] [address]- 8024 16 Jun, 2013 [facility] [place] [facility] [address] [id number], [place] [address]- 2176 Jun, 2013 [facility] [place] [facility] [address] [facility] [id number], [place] [address]- 2139 Jun, 2013 [facility] [place] [facility] [address] [facility] [id number], [place] [address]- 5387 Jun, 2013 [facility] [place] [facility] [address] [id number] [place] [address]- 4618 07 Jun, 2014 [facility] [place] [facility] [address] [id number] [place] [address]- 9882 25 May, 2013 [facility] [place] [facility] [address] [id number] [place] [address] 2546 11 May, 2013 [facility] [place] [facility] [address] [id number] [place] [address] 2546 11 May, 2013 [facility] [place] [facility] [address] [id number] [place] [address]- 4559 04 May, 2013 [facility] [place] [facility] [address] [id number] [place] [address]- 5387 04 May, 2013 [facility] [place] [facility] [address] [id number] [place] [address]- 6644 03 May, 2013 [facility] [place] [facility] [address] [id number] [place] [address]- 7789 03 May, 2013 [facility] [place] [facility] [address] [id number] [place] [address]- 7857 Apr, [facility] [place] [facility] [address] [id number] [place] [address]- 0417 Apr, [facility] [place] [facility] [address] [id number] [place] [address]- 2983 15 Apr, 2014 [facility] [place] [facility] [address] [id number] [place] [address] 15 Apr, 2014 [facility] [place] [facility] [address] [id number] [place] [address] 14 Apr, 2014 [facility] [place] [facility] [address] [id number] [place] [address] Apr, [facility] [place] [facility] [address] [id number] [place] [address] Apr, [facility] [place] [facility] [address] [id number] [place] [address] Apr, [facility] [place] [facility] [address] [id number] [place] [address] Apr, [facility] [place] [facility] [address] [id number] [place] [address] Apr, [facility] [place] [facility] [address] [id number] [place] [address] Apr, [facility] [place] [facility] [address] [id number] [place] [address] Mar, [facility] [place] [facility] [address] [id number] [place] [address] Mar, [facility] [place] [facility] [address] [id number] [place] [address] Mar, [facility] [place] [facility] [address] [id number] [place] [address] Mar, [facility] [place] [facility] [address] [id number] [place] [address] Feb, [facility] [place] [facility] [address] [id number] [place] [address] Feb, [facility] [place] [facility] [address] [id number] [place] [address] Feb, [facility] [place] [facility] [address] [id number] [place] [address] Feb, [facility] [place] [facility] [address] [id number] [place] [address] Feb, [facility] [place] [facility] [address] [id number] [place] [address] Feb, [facility] [place] [facility] [address] [id number] [place] [address] Feb, [facility] [place] [facility] [address] [id number] [place] [address] Feb, [facility] [place] [facility] [address] [id number] [place] [address] January, [facility] [place] [facility] [address] [id number] [place] [address] January, [facility] [place] [facility] [address] [id number] [place] [address] January, [facility] [place] [facility] [address] [id number] [place] [address] January, [facility] [place] [facility] [address] [id number] [place] [address] Dec, [facility] [place] [facility] [address] [id number] [place] [address] Dec, [facility] [place] [facility] [address] [id number] [place] [address] Dec, [facility] [place] [facility] [address] [id number] [place] [address] Dec, [facility] [place] [facility] [address] [id number] [place] [address] Dec, [facility] [place] [facility] [address] [id number] [place] [address] Dec, [facility] [place] [facility] [address] [id number] [place] [address] Dec, [facility] [place] [facility] [address] [id number] [place] [address] Dec, [facility] [place] [facility] [address] [id number] [place] [address] Dec, [facility] [place] [facility] [address] [id number] [place] [address] Dec, [facility] [place] [facility] [address] [id number] [place] [address] Nov, [facility] [place] [facility] [address] [id number] [place] [address] Nov, [facility] [place] [facility] [address] [id number] [place] [address] Nov, [facility] [place] [facility] [address] [id number] [place] [address] Nov, [facility] [place] [facility] [address] [id number] [place] [address] Nov, [facility] [place] [facility] [address] [id number] [place] [address] Oct, [facility] [place] [facility] [address] [id number] [place] [address] Oct, [facility] [place] [facility] [address] [id number] [place] [address] Sep, [facility] [place] [facility] [address] [id number] [place] [address] Sep, [facility] [place] [facility] [address] [id number] [place] [address] Sep, [facility] [place] [facility] [address] [id number] [place] [address] Sep, [facility] [place] [facility] [address] [id number] [place] [address] Aug, [facility] [place] [facility] [address] [id number] [place] [address] Aug, [facility] [place] [facility] [address] [id number], [place] [address] Aug, [facility] [place] [facility] [address] [id number] [place] [address] Aug, [facility] [place] [facility] [address] [id number] [place] [address] Aug, [facility] [place] [facility] [address] [id number] [place] [address] Aug, [facility] [place] [facility] [address] [id number], [place] [address] Aug, [facility] [place] [facility] [address] [id number] [place] [address] Aug, [facility] [place] [facility] [address] [id number], [place] [address] Jul, [facility] [place] [facility] [address] [id number] [place] [address] Jul, [facility] [place] [facility] [address] [id number] [place] [address] Jul, [facility] [place] [facility] [address] [id number] [place] [address] Jul, [facility] [place] [facility] [address] [id number] [place] [address] Jun, [facility] [place] [facility] [address] [id number] [address] Jun, [facility] [place] [facility] [address] [id number] [place] [address] 5867 Jun, [facility] [place] [facility] [address] [id number], [place] [address] Jun, [facility] [place] [facility] [address] [facility] [id number], [place] [address] Jun, [facility] [place] [facility] [address] [id number], [place] [address] May, [facility] [place] [facility] [address] [id number], [place] [address] Apr, [facility] [place] [facility] [address] [id number], [place] [address] Apr, [facility] [place] [facility] [address] [id number], [place] [address] Mar, [facility] [place] [facility] [address] [id number] [place] [address] Feb, [facility] [place] [facility] [address] [id number] [place] [address] Feb, [facility] [address] [id number] [place] [address] January, [facility] [place] [facility] [address] [id number] [place] [address] January, [facility] [address] [id number] [place] [address] January, [facility] [place] [facility] [address] [id number] [place] [address] Nov, [facility] [address] [id number] [place] [address] Oct, [facility] [address] [id number] [place] [address] Oct, [facility] [address] [id number] [place] [address] Oct, [facility] [address] [id number] [place] [address] Sep, [facility] [address] [id number] [place] [address] Sep, [facility] [address] [id number] [place] [address] Aug, [facility] [address] [id number] [place] [address] Aug, [facility] [place] [facility] [address] [id number] [place] [address] Jul, [facility] [place] [facility] [address] [id number] [place] [address] Jul, [facility] [place] [facility] [address] [id number] [place] [address] Jul, [facility] [place] [facility] [address] [id number] [place] [address] 8540 Jul, [facility] [place] [facility] [address] [id number] [place] [address] Jul, [facility] [place] [facility] [address] [id number], [place] [address] Jul, [facility] [place] [facility] [address] [facility] [id number] [place] [address] Jul, [facility] [place] [facility] [address] [id number], [place] [address] Jul, [facility] [place] [facility] [address] [id number] [place] [address] Jul, [facility] [place] [facility] [address] [id number], [place] [address] Jul, [facility] [place] [facility] [address] [facility] [id number], [place] [address] Jul, [facility] [place] [facility] [address] [id number], [place] [address]- 6[address] Jul, [facility] [place] [facility] [address] [id number], [place] [address] Jul, [facility] [place] [facility] [address] [facility] [id number], [place] [address] Jul, [facility] [place] [facility] [address] [id number], [place] [address] Jun, [facility] [place] [facility] [address] [id number], [place] [address]- 6686 Jun, [facility] [place] [facility] [address] [id number], [place] [address]- [address] Jun, [facility] [place] [facility] [address] [facility] [id number], [place] [address]- [address] Jun, [facility] [place] [facility] [address] [facility] [id number], [place] [address]- [address] Jun, [facility] [place] [facility] [address] [id number] [place] [address]- 6138 Jun, [facility] [address] [id number] [place] [address] 8657 Jun, [facility] [place] [facility] [address] [id number] [place] [address]- 4226 Apr, [facility] [place] [facility] [address] [id number] [place] [address] 8076 Apr, [facility] [place] [facility] [address] [id number] [place] [address] 4381 Mar, [facility] [place] [facility] [address] [id number] [place] [address]- 4185 Feb, [facility] [place] [facility] [address] [id number] [place] [address]- 7286 Feb, [facility] [place] [facility] [address] [facility] [id number] [place] [address]365 January, [facility] [place] [facility] [address] [id number] [place] [address] 8444 January, [facility] [place] [facility] [address] [facility] [id number] [place] [address]- 3874 Dec, [facility] [place] [facility] [address] [facility] [id number] [place] [address]- 6983 Dec, [facility] [place] [facility] [address] [id number] [place] [address]- 4819 Nov, [facility] [place] [facility] [address] [facility] [id number] [place] [address]- 8971 Oct, [facility] [place] [facility] [address] [id number] [place] [address]- 4666 Oct, [facility] [place] [facility] [address] [facility] [id number] [place] [address]- 2546 Oct, [facility] [place] [facility] [address] [facility] [id number] [place] [address] Sep, [facility] [place] [facility] [address] [id number] [place] [address]- 2371 14 Aug, 2011 [facility] [place] [facility] [address] [id number] [place] [address]- 8394 14 Aug, 2011 [facility] [place] [facility] [address] [id number] [place] [address]- 4440 13 Aug, 2011 [facility] [place] [facility] [address] [id number] [place] [address]- 9508 05 Aug, 2011 [facility] [place] [facility] [address] [id number] [place] [address]- 2283 02 Aug, 2011 [facility] [place] [facility] [address] [id number] [place] [address]- 0454 Jul, [facility] [place] [facility] [address] [id number] [place] [address]- 3142 Jul, [facility] [place] [facility] [address] [id number] [place] [address]- 6476 Jul, [facility] [place] [facility] [address] [id number] [place] [address]- 5951 Jul, [facility] [place] [facility] [address] [id number], [place] [address]- 5828 29 Aug, 2010 [facility] [place] [facility] [address] [id number], [place] [address]- 3180 28 Aug, 2010 [facility] [place] [facility] [address] [id number], [place] [address]- [address]161 13 Aug, 2010 [facility] [place] [facility] [address] [id number], [place] [address]- 4834 Jun, [facility] [place] [facility] [address] [id number], [place] [address]- 68[address] Jun, [facility] [place] [facility] [address] [id number], [place] [address]- [address]491 Jun, [facility] [place] [facility] [address] [id number], [place] [address]- [address] Jun, [facility] [address] [facility] [id number], [place] [address]- [address]645 Jun, [facility] [address] [facility] [id number], [place] [address]- 6[address] Jul, [facility] [address] [facility] [id number], [place] [address] 25[address] Jul, [facility] [address] [facility] [id number], [place] [address]- [address]90 Jun, [facility] [address] [facility] [id number], [place] [address]- [address] Jun, IMMUNIZATIONS No Known Immunizations SOCIAL HISTORY Never Assessed REASON FOR VISIT Controlled Med Refill 04/06/2017 PLAN OF CARE VITAL SIGNS MEDICATIONS Medication Instructions Dosage Frequency Start Date End Date Duration Status Hydrocodone-Acetaminophen 7.5-325 MG Orally 3 times a day 1 tablet as needed for pain 8h Mar, 28 days Active RESULTS No Results PROCEDURES [...]
--- OUTSIDE RECORDS SUMMARY | 2018-05-26 08:23 | XMS REPORT ---
Author Author LASHAY BLACK Organization [facility] Address [address] [place] [address] Care Team Providers Care Ad Setter Name Role Phone LASHAY BLACK Unavailable PROBLEMS Type Condition ICD9-CM Code [id number] Code Onset Dates Condition Status SNOMED Code Problem Irritable bowel syndrome with diarrhea K58.0 Active 166965796 Problem Venous vascular malformations Q27.9 Active 247703625 Problem Chronic obstructive pulmonary disease, unspecified COPD type J44.9 Active 65341137 Problem Primary insomnia F51.01 Active 7865803 Problem Migraine without aura and without status migrainosus, not intractable G43.009 Active 546714194 Problem 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 956729418 Problem Hypercholesterolemia E78.00 Active 12441995 Problem Post concussion syndrome F07.81 Active 46392747 Problem Other headache syndrome G44.89 Active 728994929 Problem Unspecified asthma, uncomplicated J45.909 Active 576226127 Problem Cervicalgia M54.2 Active 94816592 Problem Other chronic pain G89.29 Active 71065844 Problem Hypertension I10 Active 26351076 Problem Idiopathic sleep related nonobstructive alveolar 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 Active 66152311 Problem Anxiety F41.9 Active 43850273 Problem Obstructive sleep apnea G47.33 Active 77465254 ALLERGIES No Information ENCOUNTERS Encounter Location Date Diagnosis [facility] [id number] [address] January, [facility] [id number] [place] [address] 44565- 6798 Dec, Drug-induced constipation K59.03 ; Fatigue, unspecified type R53.83 ; Forgetfulness R68.89 ; Other chronic pain G89.29 and Primary insomnia F51.01 [facility] [id number] [place] [address] 05246- 9396 Nov, [facility] [id number] [place] [address] 88579- 6135 Oct, Other chronic pain G89.29 [facility] [id number] [place] [address] 44397- 7804 Sep, Other chronic pain G89.29 [facility] [id number] [place] [address] 70643- 2698 Sep, Other chronic pain G89.29 [facility] [id number] [place] [address] 08884- 9682 Aug, Other chronic pain G89.29 [place] [address] 54183- 5280 Jul, Other chronic pain G89.29 ; Encounter for immunization Z23 and Side effects of treatment, initial encounter T88.9XXA [place] [address] 05333- 1349 Jul, Other chronic pain G89.29 [facility] [id number] [place] [address] 33348 -7738 Jul, [facility] [id number] [place] [address] 25354- 9809 Jul, Encounter for immunization Z23 [facility] [id number] [place] [address] 28552- 5636 Jun, Hypertension I10 ; Other headache syndrome G44.89 ; Post concussion syndrome F07.81 and Other chronic pain G89.29 [facility] [id number] [place] [address] 94988- 8293 May, [place] [address] 71830- 5005 May, Migraine without aura and without status migrainosus, not intractable G43.009 [facility] [id number] [place] [address] 84242- 9960 May, 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 [facility] [id number] [place] [address] 09432- 0774 May, Other chronic pain G89.29 [facility] [id number] [place] [address] 78987- 2633 Apr, Chronic obstructive pulmonary disease, unspecified COPD type J44.9 [facility] [id number] [place] [address] 63251- 3750 Apr, Chronic obstructive pulmonary disease, unspecified COPD type J44.9 [facility] [id number] [place] [address] 93931- 9642 Apr, Other chronic pain G89.29 ; Irritable bowel syndrome with diarrhea K58.0 and Hypercholesterolemia E78.00 [place] [id number] [place] [address] 92190- 3816 Apr, Other chronic pain G89.29 [facility] [id number] [place] [address] 84715- 2132 Mar, Other chronic pain G89.29 [facility] [id number] [place] [address] 97424- 8304 Feb, 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 [place] [address] [address]- 3057 Feb, Other chronic pain G89.29 [facility] [id number] [place] [address] 02856- 4419 Feb, [facility] [id number] [place] [address] 31016- 4673 January, [facility] [id number] [place] [address] 00961- 4363 January, Other chronic pain G89.29 [facility] [id number] [place] [address] 13579- 8058 January, [place] [id number] [place] [address] 90366- 6127 January, [facility] [id number] [place] [address] 97315- 1342 January, Other chronic pain G89.29 ; Irritable bowel syndrome with diarrhea K58.0 and Hypercholesterolemia E78.00 [facility] [id number] [place] [address] 04011- 1008 January, Other chronic pain G89.29 ; Hypertension I10 ; Irritable bowel syndrome with diarrhea K58.0 ; Chronic obstructive pulmonary disease, unspecified COPD type J44.9 and Venous vascular malformations Q27.9 [facility] [id number] [place] [address] 63589 -2900 January, Acute otitis externa of right ear, unspecified type H60.501 [facility] [id number] [place] [address] 82813- 2855 Dec, Other chronic pain G89.29 [facility] [id number] [place] [address] 29608- 5435 Dec, Hypertension I10 [facility] [id number] [place] [address] 95325- 6451 Nov, Other chronic pain G89.29 [facility] [id number] [place] [address] 16583- 9618 Oct, Other chronic pain G89.29 [facility] [id number] [place] [address] 51956- 7085 Sep, Other chronic pain G89.29 [facility] [id number] [place] [address] 23677- 7239 Sep, Hypertension I10 [facility] [id number] [place] [address] 41805- 0443 Sep, Other chronic pain G89.29 [facility] [id number] [place] [address] 39035- 9576 Aug, Arthralgia, unspecified joint M25.50 ; Other chronic pain G89.29 ; Obstructive sleep apnea G47.33 and Idiopathic sleep related nonobstructive alveolar 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 [place] [id number] [place] [address] 79392- 5821 Aug, [place] [address] 66983- 2314 Aug, Other chronic pain G89.29 [place] [address] 14361- 2418 Jul, Chronic obstructive pulmonary disease, unspecified COPD type J44.9 and Diarrhea, unspecified type R19.7 [place] [address] 81988- 4016 Jul, Other chronic pain G89.29 [place] [address] 38708- 8159 Jul, Skin tags, multiple acquired L91.8 [place] [address] 01243- 1684 Jun, [place] [address] 13374- 4776 Jun, Hypertension I10 [place] [address] 84924- 0713 May, Mouth pain K13.79 and Other chronic pain G89.29 [place] [id number] [place] [address] 46895- 1000 May, [place] [address] 42809- 7131 May, [place] [address] 73411- 1685 May, Pain in right knee M25.561 and Other chronic pain G89.29 [place] [address] 65638- 1109 Apr, Cervicalgia M54.2 [place] [address] 41031- 5055 Mar, Cervicalgia M54.2 [place] [address] 23930- 7028 27 Feb, 2016 Fever, unspecified fever cause R50.9 and Arthralgia, unspecified joint M25.50 [place] [address] 68845- 5799 15 Feb, 2016 Hypertension I10 and Chronic pain syndrome G89.4 [place] [address] 57343- 5632 08 Feb, 2016 Cervicalgia M54.2 [place] [address] 79569- 7031 January, [place] [address] 60757- 2265 Dec, Chest pain R07.9 ; Family history of early CAD Z82.49 ; Hypertension I10 ; Fatigue R53.83 and History of IBS Z87.19 [place] [address] 83046- 4482 Dec, [place] [address] 94219- 6005 Nov, Allergic rhinitis J30.9 [place] [address] 75398- 1561 Nov, [place] [address] 83687- 3588 Nov, Hypertension I10 and Anxiety F41.9 [place] [address] 37069- 7798 Nov, [place] [address] 44782- 7675 Oct, [place] [id number] [place] [address] 73354- 3455 10 Oct, 2015 Chest pain R07.9 ; Family history of early CAD Z82.49 ; Hypertension I10 ; Fatigue R53.83 and History of IBS Z87.19 [place] [id number] [place] [address] 55895- 3810 Oct, [place] [address] 56347- 0139 Oct, Chest pain, unspecified R07.9 [place] [id number] [place] [address] 29124- 6803 Oct, Chest pain, unspecified R07.9 ; Irritable bowel syndrome with diarrhea K58.0 ; Fatigue R53.83 and Degenerative disc disease, cervical M50.30 [place] [id number] [place] [address] 75235- 8229 Oct, [place] [id number] [place] [address] 98890- 3289 Oct, [place] [id number] [place] [address] 61236- 7730 Sep, [place] [id number] [place] [address] 59093- 3954 Sep, [place] [id number] [place] [address] 30851- 4837 Aug, [facility] [id number] [place] [address] 27512- 0072 Aug, [place] [id number] [place] [address] 90725- 3297 Aug, [facility] [id number] [place] [address] 72098- 8631 Jul, Cervicalgia M54.2 ; Headache R51 ; Post-traumatic headache, unspecified, not intractable G44.309 and Unspecified intracranial injury without loss of consciousness, sequela S06.9X0S [facility] [place] [facility] [id number] [place] [address]- 7564 Jul, [facility] [place] [facility] [address] [place] [address]- 3092 Jul, [facility] [place] [facility] [address] [place] [address]- 9096 Jun, [facility] [place] [facility] [id number] [place] [address] 49021- 4251 Jun, Encounter for immunization Z23 [facility] [place] [facility] [id number] [place] [address], [place] [address]- 8332 Jun, [facility] [place] [facility] [id number] [place] [address] 87169- 6190 May, [facility] [place] [facility] [id number] [place] [address] 23067- 0893 May, [facility] [place] [facility] [id number] [address]- 6455 Apr, [facility] [place] [facility] [address] [place] [address], [place] [address]- 2205 Apr, [facility] [place] [facility] [address], [place] [address]- 5583 Apr, [facility] [place] [facility] [address], [place] [address]- 1592 Mar, [facility] [place] [facility] [address] [address]- 5358 Mar, [facility] [place] [facility] [address] [address]- 9442 Mar, [facility] [place] [facility] [address] [address]- 9309 Feb, [facility] [place] [facility] [address] [address]- 0177 Feb, [facility] [place] [facility] [address] [id number] [place] [address]- 1094 January, [facility] [place] [facility] [address] [id number] [place] [address]- 3874 January, [facility] [place] [facility] [address] [id number] [place] [address]- 7558 Dec, [facility] [place] [facility] [address] [id number] [place] [address]- 6029 Dec, [facility] [place] [facility] [address] [id number] [place] [address]- 1013 Nov, [facility] [place] [facility] [address] [id number] [place] [address]- 9001 Nov, [facility] [place] [facility] [address] [id number] [place] [address]- 9815 Nov, [facility] [place] [facility] [address] [id number] [place] [address]- 4712 Nov, [facility] [place] [facility] [address] [id number] [place] [address]- 5592 Nov, [facility] [place] [facility] [address] [id number] [place] [address]- 9777 Nov, [facility] [place] [facility] [address] [id number] [place] [address]- 2855 Nov, [facility] [place] [facility] [address] [id number] [place] [address]- 0815 Nov, [facility] [place] [facility] [address] [id number] [place] [address]- 5471 Nov, [facility] [place] [facility] [address] [id number] [place] [address]- 7973 Nov, [facility] [place] [facility] [address] [id number] [place] [address]- 9296 Nov, [facility] [place] [facility] [address] [id number] [place] [address]- 6770 Nov, [facility] [place] [facility] [address] [id number] [place] [address]- 5486 Nov, [facility] [place] [facility] [address] [id number] [place] [address]- 6906 Nov, [facility] [place] [facility] [address] [id number] [place] [address]- 6240 Oct, [facility] [place] [facility] [address] [id number] [place] [address]- 0834 Oct, [facility] [place] [facility] [address] [id number] [place] [address]- 6058 Oct, [facility] [place] [facility] [address] [id number] [place] [address]- 9105 Oct, [facility] [place] [facility] [address] [id number] [place] [address]- 0524 Sep, [facility] [place] [facility] [address] [id number] [place] [address]- 7883 Sep, [facility] [place] [facility] [address] [id number] [place] [address]- 4453 Sep, [facility] [place] [facility] [address] [id number] [place] [address]- 7398 Sep, [facility] [place] [facility] [address] [id number] [place] [address]- 3322 Sep, [facility] [place] [facility] [address] [id number] [place] [address]- 7231 Sep, [facility] [place] [facility] [address] [id number] [place] [address]- 1072 Sep, [facility] [place] [facility] [address] [id number] [place] [address]- 4578 Sep, [facility] [place] [facility] [address] [id number] [place] [address]- 3612 Aug, [facility] [place] [facility] [address] [id number] [place] [address]- 8226 Aug, [facility] [place] [facility] [address] [id number] [place] [address]- 5817 Aug, [facility] [place] [facility] [address] [id number] [place] [address]- 1468 Aug, [facility] [place] [facility] [address] [id number] [place] 9374 Aug, [facility] [place] [facility] [address] [id number] [place] [address]- 6725 Aug, [facility] [place] [facility] [address] [id number] [place] [address]- 1721 Aug, [facility] [place] [facility] [address] [id number] [place] [address]- 8995 Aug, [facility] [place] [facility] [address] [id number] [place] [address]- 3619 Jul, [facility] [place] [facility] [address] [id number] [place] [address]- 8925 Jul, [facility] [place] [facility] [address] [id number] [place] [address]- 4290 Jul, [facility] [place] [facility] [address] [id number] [place] [address]- 7527 Jul, [facility] [place] [facility] [address] [id number] [place] [address]- 3326 Jul, [facility] [place] [facility] [address] [id number] [place] [address]- 0145 Jul, [facility] [place] [facility] [address] [id number] [place] 9220 Jul, [facility] [place] [facility] [address] [id number] [place] [address]- 2961 Jul, [facility] [place] [facility] [address] [id number] [place] [address]- 6790 Jul, [facility] [place] [facility] [address] [id number] [place] [address]- 8437 Jul, [facility] [place] [facility] [address] [id number] [place] [address]- 0080 Jul, [facility] [place] [facility] [address] [id number] [place] [address]- 8574 Jun, [facility] [place] [facility] [address] [id number] [place] [address]- 1883 Jun, [facility] [place] [facility] [address] [id number] [place] 8760 Jun, [facility] [place] [facility] [address] [id number] [place] [address]- 5436 Jun, [facility] [place] [facility] [address] [id number] [place] [address]- 2197 Jun, [facility] [place] [facility] [address] [id number] [place] [address]- 0022 Jun, [facility] [place] [facility] [address] [id number] [place] [address]- 6863 Jun, [facility] [place] [facility] [address] [id number] [place] [address]- 0281 Jun, [facility] [place] [facility] [address] [id number] [address]- 9035 Jun, [facility] [place] [facility] [address] [id number], [place] [address]- 3247 Jun, [facility] [place] [facility] [address] [id number] [place] [address]- 7806 Jun, [facility] [place] [facility] [address] [id number] [place] [address]- 2772 Jun, [facility] [place] [facility] [address] [id number], [place] [address]- 2992 Jun, [facility] [place] [facility] [address] [id number], [place] [address]- 0999 Jun, [facility] [place] [facility] [address] [id number] [place] [address]- 8100 Jun, [facility] [place] [facility] [address] [id number] [place] [address]- 1826 Jun, [facility] [place] [facility] [address] [id number] [place] [address]- 5025 Jun, [facility] [place] [facility] [address] [id number] [place] [address]- 0691 25 May, 2014 [facility] [place] [facility] [address] [id number] [place] [address]- 1867 11 May, 2014 [facility] [place] [facility] [address] [id number] [place] [address]- 1404 11 May, 2014 [facility] [place] [facility] [address] [id number] [place] [address]- 1230 04 May, 2014 [facility] [place] [facility] [address] [id number] [place] [address]- 3655 04 May, 2014 [facility] [place] [facility] [address] [id number] [place] [address]- 4127 03 May, 2014 [facility] [place] [facility] [address] [id number] [place] [address]- 6347 03 May, 2014 [facility] [place] [facility] [address] [id number] [place] [address]- 2017 Apr, [facility] [place] [facility] [address] [id number] [place] [address]- 9352 Apr, [facility] [place] [facility] [address] [id number] [place] [address]- 9433 15 Apr, 2014 [facility] [place] [facility] [address] [id number] [place] [address]- 9102 15 Apr, 2014 [facility] [place] [facility] [address] [id number] [place] [address]- 9726 14 Apr, 2014 [facility] [place] [facility] [address] [id number] [place] [address]- 1413 Apr, [facility] [place] [facility] [address] [id number] [place] [address]- 8949 Apr, [facility] [place] [facility] [address] [id number] [place] [address]- 6877 Apr, [facility] [place] [facility] [address] [id number] [place] [address]- 1524 Apr, [facility] [place] [facility] [address] [id number] [place] [address]- 9866 Apr, [facility] [place] [facility] [address] [id number] [place] [address]- 3912 Apr, [facility] [place] [facility] [address] [id number] [place] [address]- 9446 Mar, [facility] [place] [facility] [address] [id number] [place] [address]- 9404 Mar, [facility] [place] [facility] [address] [id number] [place] [address]- 0513 Mar, [facility] [place] [facility] [address] [id number] [place] [address]- 8871 Mar, [facility] [place] [facility] [address] [id number] [place] [address]- 8438 Feb, [facility] [place] [facility] [address] [id number] [place] [address]- 5201 Feb, [facility] [place] [facility] [address] [id number] [place] [address]- 2208 Feb, [facility] [place] [facility] [address] [id number] [place] [address]- 0780 Feb, [facility] [place] [facility] [address] [id number] [place] [address]- 9552 Feb, [facility] [place] [facility] [address] [id number] [place] [address]- 8241 Feb, [facility] [place] [facility] [address] [id number] [place] [address]- 5011 Feb, [facility] [place] [facility] [address] [id number] [place] [address]- 0626 Feb, [facility] [place] [facility] [address] [id number] [place] [address] January, [facility] [place] [facility] [address] [id number] [place] [address] January, [facility] [place] [facility] [address] [id number] [place] [address] January, [facility] [place] [facility] [address] [id number] [place] [address] January, [facility] [place] [facility] [address] [id number] [place] [address] Dec, [facility] [place] [facility] [address] [id number] [place] [address] Dec, [facility] [place] [facility] [address] [id number] [place] [address] Dec, [facility] [place] [facility] [address] [id number] [place] [address] Dec, [facility] [place] [facility] [address] [id number] [place] [address] Dec, [facility] [place] [facility] [address] [id number] [place] [address]- [address] Dec, [facility] [place] [facility] [address] [id number] [place] [address] Dec, [facility] [place] [facility] [address] [id number] [place] [address]- [address] Dec, [facility] [place] [facility] [address] [id number] [place] [address]- [address] Dec, [facility] [place] [facility] [address] [id number] [place] [address]- [address] Dec, [facility] [place] [facility] [address] [id number] [place] [address] Nov, [facility] [place] [facility] [address] [id number] [place] [address]- [address] Nov, [facility] [place] [facility] [address] [id number] [place] [address]- [address] Nov, [facility] [place] [facility] [address] [id number] [place] [address]- [address] Nov, [facility] [place] [facility] [address] [id number] [place] [address]- [address] Nov, [facility] [place] [facility] [address] [id number] [place] [address]- [address] Oct, [facility] [place] [facility] [address] [id number] [place] [address]- [address] Oct, [facility] [place] [facility] [address] [id number] [place] [address]- [address] Sep, [facility] [place] [facility] [address] [id number] [place] [address] Sep, [facility] [place] [facility] [address] [id number] [place] [address]- [address] Sep, [facility] [place] [facility] [address] [id number] [place] [address]- [address] Sep, [facility] [place] [facility] [address] [id number] [place] [address]- [address] Aug, [facility] [place] [facility] [address] [id number] [place] Aug, [facility] [place] [facility] [address] [id number] [place] [address] Aug, [facility] [place] [facility] [address] [id number] [place] [address]- [address] Aug, [facility] [place] [facility] [address] [id number] [place] [address]- [address] Aug, [facility] [place] [facility] [address] [id number] [place] [address]- [address] Aug, [facility] [place] [facility] [address] [id number] [place] [address] Aug, [facility] [place] [facility] [address] [id number] [place] [address]- [address] Aug, [facility] [address] [id number] [place] [address] Jul, [facility] [place] [facility] [address] [id number] [place] [address] Jul, [facility] [address] [id number] [place] [address] Jul, [facility] [place] [facility] [address] [id number] [place] [address] Jul, [facility] [place] [facility] [address] [id number] [place] [address]- [address] Jun, [facility] [place] [facility] [address] [id number] [place] [address] Jun, [facility] [place] [facility] [address] [id number] [place] [address]- [address] Jun, [facility] [place] [facility] [address] [id number] [address] Jun, [facility] [place] [facility] [address] [id number] [place] [address]- [address] Jun, [facility] [place] [facility] [address] [id number] [place] [address]- [address] May, [facility] [place] [facility] [address] [id number] [address] Apr, [facility] [place] [facility] [address] [id number], [place] [address] Apr, [facility] [address] [id number] [place] [address] Mar, [facility] [address] [id number] [place] [address] Feb, [facility] [address] [id number] [place] [address] Feb, [facility] [address] [id number] [place] [address] January, [facility] [address] [id number] [place] [address] January, [facility] [address] [id number] [place] [address] January, [facility] [address] [facility] [id number] [place] [address] Nov, [facility] [address] [id number] [place] [address] Oct, [facility] [address] [id number] [place] [address] Oct, [facility] [address] [id number] [place] [address] Oct, [facility] [address] [id number] [place] [address] Sep, [facility] [address] [id number], [place] [address] Sep, [facility] [address] [id number] [place] [address] Aug, [facility] [place] [facility] [address] [id number] [place] [address] Aug, [facility] [address] [id number] [place] [address] Jul, [facility] [place] [facility] [address] [id number] [place] [address] Jul, [facility] [place] [facility] [address] [id number] [place] [address] Jul, [facility] [place] [facility] [address] [id number] [place] [address] Jul, [facility] [place] [facility] [address] [id number] [place] [address] Jul, [facility] [place] [facility] [address] [id number] [place] [address] Jul, [facility] [place] [facility] [address] [id number] [place] [address] 15[address] Jul, [facility] [place] [facility] [address] [id number] [place] [address] Jul, [facility] [place] [facility] [address] [id number] [place] [address] Jul, [facility] [place] [facility] [address] [id number] [place] [address] Jul, [facility] [place] [facility] [address] [id number] [place] [address]- 8669 Jul, [facility] [place] [facility] [address] [id number] [place] [address] 117[address] Jul, [facility] [place] [facility] [address] [id number] [place] [address]- 66[address] Jul, [facility] [place] [facility] [address] [id number] [place] [address] 2836 Jul, [facility] [place] [facility] [address] [id number] [place] [address]- 5668 Jun, [facility] [place] [facility] [address] [id number] [place] [address] Jun, [facility] [place] [facility] [address] [id number] [place] [address]- [address]68 Jun, [facility] [place] [facility] [address] [id number] [place] [address]- 9967 Jun, [facility] [place] [facility] [address] [id number] [place] [address]- 96[address] Jun, [facility] [place] [facility] [address] [id number] [place] [address]- 9516 Jun, [facility] [place] [facility] [address] [id number] [place] [address]- 7[address] Jun, [facility] [place] [facility] [address] [id number] [place] [address] 16[address] Apr, [facility] [place] [facility] [address] [id number] [place] [address]164 Apr, [facility] [place] [facility] [address] [id number] [place] [address] Mar, [facility] [place] [facility] [address] [id number] [place] [address] 72[address] Feb, [facility] [place] [facility] [address] [id number] [place] [address] 12[address] Feb, [facility] [place] [facility] [address] [facility] [id number] [place] [address]842 January, [facility] [place] [facility] [address] [id number], [place] [address] January, [facility] [place] [facility] [address] [id number], [place] [address] Dec, [facility] [place] [facility] [address] [id number] [place] [address] Dec, [facility] [place] [facility] [address] [id number], [place] [address] Nov, [facility] [place] [facility] [address] [id number] [place] [address] 39[address] Oct, [facility] [place] [facility] [address] [id number] [place] [address] 09 Oct, 2011 [facility] [address] [id number] [place] [address] 08 Oct, 2011 [facility] [address] [id number] [place] [address]- 1748 Sep, [facility] [address] [id number] [place] [address]- [address] 14 Aug, 2011 [facility] [address] [id number] [place] [address]- [address] 14 Aug, 2011 [facility] [address] [id number] [place] [address] 6948 Aug, [facility] [address] [facility] [id number] [place] [address] 05 Aug, 2011 [facility] [address] [facility] [id number] [place] [address]- 7585 Aug, [facility] [address] [id number] [place] [address]- 8788 Jul, [facility] [address] [facility] [id number] [place] [address]- [address] Jul, [facility] [address] [facility] [id number] [place] [address]- 9833 Jul, [facility] [address] [id number] [place] [address]- 1610 Jul, [facility] [address] [id number] [place] [address]- [address]130 29 Aug, 2010 [facility] [address] [id number] [place] [address]- [address]248 28 Aug, 2010 [facility] [place] [facility] [address] [facility] [id number] [place] [address]- [address]94 13 Aug, 2010 [facility] [address] [facility] [id number] [place] [address]- 6226 Jun, [facility] [address] [id number], [place] [address] Jun, [facility] [id number], [place] [address] Jun, [facility] [id number], [place] [address] Jun, [facility] [id number], [place] [address] Jun, [facility] [id number], [place] [address] Jul, [facility] [id number], [place] [address] Jul, [facility] [id number], [place] [address]- [address] Jun, [facility] [id number], [place] [address] Jun, IMMUNIZATIONS No Known Immunizations SOCIAL HISTORY Never Assessed REASON FOR VISIT Referral Request PLAN OF CARE VITAL SIGNS MEDICATIONS Unknown [...]
--- OUTSIDE RECORDS SUMMARY | 2018-05-26 08:24 | XMS REPORT ---
Author Author LASHAY BLACK [facility] Address [address] [place] [address] Care Team Providers Care Pyroglazer Name Role Phone LASHAY BLACK Unavailable PROBLEMS Type Condition ICD9-CM Code FDF03-LV Code Onset Dates Condition Status SNOMED Code Problem Irritable bowel syndrome with diarrhea K58.0 Active 979405615 Problem Venous vascular malformations Q27.9 Active 717114157 Problem Chronic obstructive pulmonary disease, unspecified COPD type J44.9 Active 10986498 Problem Primary insomnia F51.01 Active 0953405 Problem Migraine without aura and without status migrainosus, not intractable G43.009 Active 982360091 Problem 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 982160905 Problem Hypercholesterolemia E78.00 Active 30930179 Problem Post concussion syndrome F07.81 Active 81041157 Problem Other headache syndrome G44.89 Active 645391762 Problem Unspecified asthma, uncomplicated J45.909 Active 117486721 Problem Cervicalgia M54.2 Active 53744779 Problem Other chronic pain G89.29 Active 70507524 Problem Hypertension I10 Active 72781765 Problem Idiopathic sleep related nonobstructive alveolar 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 Active 38404173 Problem Anxiety F41.9 Active 18897690 Problem Obstructive sleep apnea G47.33 Active 84862060 ALLERGIES Substance Reaction Event Type Date Status Prevagen Unknown Drug Allergy Jul, Active Penicillin V Potassium Unknown Drug Allergy Jul, Active Cardura XL Unknown Drug Allergy Jul, Active ENCOUNTERS Encounter Location Date Diagnosis [facility] [address] [facility] [id number] [address] January, Arthralgia, unspecified joint M25.50 and Other chronic pain G89.29 [facility] [address] [facility] [id number] [address] Dec, Drug-induced constipation K59.03 ; Fatigue, unspecified type R53.83 ; Forgetfulness R68.89 ; Other chronic pain G89.29 and Primary insomnia F51.01 [facility] [id number] [place] [address] 79538- 8102 Nov, [facility] [id number] [place] [address] 92732- 8602 Oct, Other chronic pain G89.29 [facility] [address] [address]28- 7104 Sep, Other chronic pain G89.29 [facility] [id number] [place] [address] 29780- 5146 Sep, Other chronic pain G89.29 [place] [id number] [place] [address] 12059- 1045 Aug, Other chronic pain G89.29 [place] [address] 65277- 7660 Jul, Other chronic pain G89.29 ; Encounter for immunization Z23 and Side effects of treatment, initial encounter T88.9XXA [place] [id number] [place] [address] 70449- 0097 07 Jul, 2017 Other chronic pain G89.29 [facility] [id number] [place] [address] 41924 -3901 Jul, [facility] [id number] [place] [address] 91970- 8680 Jul, Encounter for immunization Z23 [facility] [id number] [place] [address] 12334- 6799 Jun, Hypertension I10 ; Other headache syndrome G44.89 ; Post concussion syndrome F07.81 and Other chronic pain G89.29 [facility] [id number] [place] [address] 67900- 3806 May, [facility] [address] 35203- 3726 May, Migraine without aura and without status migrainosus, not intractable G43.009 [facility] [id number] [place] [address] 89490- 9526 May, 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 [facility] [id number] [place] [address] 00024- 9063 May, Other chronic pain G89.29 [facility] [id number] [place] [address] 22300- 1655 Apr, Chronic obstructive pulmonary disease, unspecified COPD type J44.9 [facility] [id number] [place] [address] 30738- 8735 Apr, Chronic obstructive pulmonary disease, unspecified COPD type J44.9 [facility] [id number] [place] [address] 50824- 3880 Apr, Other chronic pain G89.29 ; Irritable bowel syndrome with diarrhea K58.0 and Hypercholesterolemia E78.00 [facility] [id number] [place] [address] 21032- 4834 Apr, Other chronic pain G89.29 [facility] [id number] [place] [address] 46781- 0189 Mar, Other chronic pain G89.29 [facility] [id number] [place] [address] 93873- 7847 Feb, 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 [facility] [id number] [place] [address] 94472- 1206 Feb, Other chronic pain G89.29 [facility] [id number] [place] [address] 07161- 0191 Feb, [facility] [id number] [place] [address] 03309- 3683 January, [facility] [id number] [place] [address] 78554- 7781 January, Other chronic pain G89.29 [facility] [id number] [place] [address] 41592- 8303 January, [facility] [id number] [place] [address] 59660- 4565 January, [facility] [id number] [place] [address] 74380- 1447 January, Other chronic pain G89.29 ; Irritable bowel syndrome with diarrhea K58.0 and Hypercholesterolemia E78.00 [facility] [id number] [place] [address] 49420- 9026 January, Other chronic pain G89.29 ; Hypertension I10 ; Irritable bowel syndrome with diarrhea K58.0 ; Chronic obstructive pulmonary disease, unspecified COPD type J44.9 and Venous vascular malformations Q27.9 [facility] [id number] [place] [address] 63379 -0906 January, Acute otitis externa of right ear, unspecified type H60.501 [facility] [id number] [place] [address] 03329- 4798 Dec, Other chronic pain G89.29 [facility] [id number] [place] [address] 51617- 2221 Dec, Hypertension I10 [facility] [id number] [place] [address] 53231- 0441 Nov, Other chronic pain G89.29 [facility] [id number] [place] [address] 40660- 1661 Oct, Other chronic pain G89.29 [facility] [id number] [place] [address] 69423- 1011 Sep, Other chronic pain G89.29 [facility] [id number] [place] [address] 70589- 4027 Sep, Hypertension I10 [facility] [id number] [place] [address] 03473- 8102 Sep, Other chronic pain G89.29 [facility] [address] 64310- 8370 Aug, Arthralgia, unspecified joint M25.50 ; Other chronic pain G89.29 ; Obstructive sleep apnea G47.33 and Idiopathic sleep related nonobstructive alveolar 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 [place] [address] 20826- 5517 Aug, [place] [address] 73641- 7835 Aug, Other chronic pain G89.29 [place] [address] 95677- 7009 Jul, Chronic obstructive pulmonary disease, unspecified COPD type J44.9 and Diarrhea, unspecified type R19.7 [place] [address] 30249- 2882 Jul, Other chronic pain G89.29 [place] [address] 21981- 8732 Jul, Skin tags, multiple acquired L91.8 [place] [address] 91336- 3333 Jun, [place] [address] 53507- 8466 Jun, Hypertension I10 [place] [id number] [place] [address] 93579- 1363 May, Mouth pain K13.79 and Other chronic pain G89.29 [place] [address] [place] [address]- 0284 May, [place] [address] 49032- 9455 May, [place] [address] 24577- 3750 May, Pain in right knee M25.561 and Other chronic pain G89.29 [place] [address] 95595- 8669 Apr, Cervicalgia M54.2 [place] [address] 25008- 4107 Mar, Cervicalgia M54.2 [place] [address] 87823- 9342 27 Feb, 2016 Fever, unspecified fever cause R50.9 and Arthralgia, unspecified joint M25.50 [place] [address] 95407- 2050 15 Feb, 2016 Hypertension I10 and Chronic pain syndrome G89.4 [place] [address] 92475- 9455 08 Feb, 2016 Cervicalgia M54.2 [place] [address] 64540- 3570 January, [place] [address] 02912- 0361 13 Dec, 2015 Chest pain R07.9 ; Family history of early CAD Z82.49 ; Hypertension I10 ; Fatigue R53.83 and History of IBS Z87.19 [place] [address] 74289- 2366 Dec, [place] [address] 77063- 3522 Nov, Allergic rhinitis J30.9 [place] [address] 20100- 6704 14 Nov, 2015 [place] [address] 70454- 0484 08 Nov, 2015 Hypertension I10 and Anxiety F41.9 [place] [address] [place] [address]- 4516 Nov, [facility] [id number] [place] [address] 56219- 6490 Oct, [facility] [id number] [place] [address] 75419- 8719 Oct, Chest pain R07.9 ; Family history of early CAD Z82.49 ; Hypertension I10 ; Fatigue R53.83 and History of IBS Z87.19 [facility] [id number] [place] [address] 22151- 5038 Oct, [facility] [address] 26692- 0691 Oct, Chest pain, unspecified R07.9 [facility] [id number] [place] [address] 24904- 1763 Oct, Chest pain, unspecified R07.9 ; Irritable bowel syndrome with diarrhea K58.0 ; Fatigue R53.83 and Degenerative disc disease, cervical M50.30 [facility] [id number] [place] [address] 74938- 3168 Oct, [facility] [id number] [place] [address] 69867- 4525 Oct, [facility] [id number] [place] [address] 27167- 1095 Sep, [facility] [id number] [place] [address] 39983- 2814 Sep, [facility] [id number] [place] [address] 22675- 5487 Aug, [facility] [id number] [place] [address] 66514- 6463 Aug, [facility] [id number] [place] [address] 14650- 5687 Aug, [facility] [address] [place] [address]- 9791 Jul, Cervicalgia M54.2 ; Headache R51 ; Post-traumatic headache, unspecified, not intractable G44.309 and Unspecified intracranial injury without loss of consciousness, sequela S06.9X0S [facility] [address] [id number] [address]- 6335 Jul, [facility] [id number] [place] [address] 53211- 0622 Jul, [facility] [id number] [place] [address] 01413- 0743 Jun, [facility] [id number] [place] [address] 03795- 5345 Jun, Encounter for immunization Z23 [facility] [id number] [place] [address] 26315- 6395 Jun, [facility] [id number] [place] [address] 77997- 4051 May, [facility] [id number] [place] [address] 80280- 1374 May, [facility] [id number] [place] [address] 82991- 7286 Apr, [facility] [id number] [place] [address] 63415- 5420 Apr, [facility] [id number] [place] [address] 89830- 7002 Apr, [facility] [id number] [place] [address] 00323- 1413 Mar, [facility] [id number] [place] [address] 30523- 4746 Mar, [facility] [id number] [place] [address] 68700- 2596 Mar, [facility] [address] [place] [address]- 0279 Feb, [facility] [place] [facility] [address] [id number] [place] [address]- 3266 Feb, [facility] [place] [facility] [address] [id number] [place] [address]- 4585 January, [facility] [place] [facility] [address] [id number] [place] [address]- 3565 January, [facility] [place] [facility] [address] [id number] [place] [address]- 4421 Dec, [facility] [place] [facility] [address] [id number] [place] [address]- 9991 Dec, [facility] [place] [facility] [address] [id number] [place] [address]- 7339 Nov, [facility] [place] [facility] [address] [id number] [place] [address]- 2265 Nov, [facility] [place] [facility] [address] [id number] [place] [address]- 8010 Nov, [facility] [place] [facility] [address] [id number] [place] [address]- 7192 Nov, [facility] [place] [facility] [address] [id number] [place] [address]- 0534 Nov, [facility] [place] [facility] [address] [id number] [place] [address]- 3289 Nov, [facility] [place] [facility] [address] [id number] [place] [address]- 1908 Nov, [facility] [place] [facility] [address] [id number] [place] [address]- 3119 Nov, [facility] [place] [facility] [address] [id number] [place] 4413 Nov, [facility] [place] [facility] [address] [id number] [place] [address]- 1481 Nov, [facility] [place] [facility] [address] [id number] [place] [address]- 5643 Nov, [facility] [place] [facility] [address] [id number] [place] [address]- 8138 Nov, [facility] [place] [facility] [address] [id number] [place] [address]- 7984 Nov, [facility] [place] [facility] [address] [id number] [place] [address]- 3870 Nov, [facility] [place] [facility] [address] [id number] [place] [address]- 9060 Oct, [facility] [place] [facility] [address] [id number] [place] [address]- 4252 Oct, [facility] [place] [facility] [address] [id number] [place] [address]- 1223 Oct, [facility] [place] [facility] [address] [id number] [place] [address]- 0788 Oct, [facility] [place] [facility] [address] [id number] [place] [address]- 1334 Sep, [facility] [place] [facility] [address] [id number] [place] [address]- 2258 Sep, [facility] [place] [facility] [address] [id number] [place] [address]- 5610 Sep, [facility] [place] [facility] [address] [id number] [place] [address]- 2154 Sep, [facility] [place] [facility] [address] [id number] [place] [address]- 8589 Sep, [facility] [place] [facility] [address] [id number] [place] [address]- 8408 Sep, [facility] [place] [facility] [address] [id number] [place] [address]- 7750 Sep, [facility] [place] [facility] [address] [id number], [place] [address]- 1521 Sep, [facility] [place] [facility] [address] [id number] [place] [address]- 6143 Aug, [facility] [place] [facility] [address] [id number] [place] 7827 Aug, [facility] [place] [facility] [address] [id number] [place] [address]- 9261 Aug, [facility] [place] [facility] [address] [id number] [place] [address]- 2978 Aug, [facility] [place] [facility] [address] [id number] [place] [address]- 1986 Aug, [facility] [place] [facility] [address] [id number] [place] [address]- 6983 Aug, [facility] [place] [facility] [address] [id number] [place] [address]- 4153 Aug, [facility] [place] [facility] [address] [id number] [place] [address]- 3490 Aug, [facility] [place] [facility] [address] [id number] [place] [address]- 3353 Jul, [facility] [place] [facility] [address] [id number] [place] [address]- 2651 Jul, [facility] [place] [facility] [address] [id number], [place] [address]- 9972 Jul, [facility] [place] [facility] [address] [id number] [place] [address]- 5100 Jul, [facility] [place] [facility] [address] [id number] [place] [address]- 3063 Jul, [facility] [place] [facility] [address] [id number] [place] [address]- 8286 Jul, [facility] [place] [facility] [address] [id number] [place] [address]- 7463 Jul, [facility] [place] [facility] [address] [id number] [place] [address]- 3958 Jul, [facility] [place] [facility] [address] [id number] [place] [address]- 2045 Jul, [facility] [place] [facility] [address] [id number] [place] [address]- 8777 Jul, [facility] [place] [facility] [address] [id number] [place] [address]- 8740 Jul, [facility] [place] [facility] [address] [id number] [place] [address]- 3407 Jun, [facility] [place] [facility] [address] [id number] [place] [address]- 3029 Jun, [facility] [place] [facility] [address] [id number] [place] [address]- 7140 Jun, [facility] [place] [facility] [address] [id number] [place] [address]- 0032 Jun, [facility] [place] [facility] [address] [id number] [place] [address]- 7283 Jun, [facility] [place] [facility] [address] [id number] [place] [address]- 6783 Jun, [facility] [place] [facility] [address] [id number] [place] [address]- 1433 Jun, [facility] [place] [facility] [address] [id number] [place] [address]- 7750 Jun, [facility] [place] [facility] [address] [id number] [place] [address]- 7226 Jun, [facility] [place] [facility] [address] [id number] [place] [address]- 0869 24 Jun, 2014 [facility] [place] [facility] [address] [id number] [place] [address]- 0511 17 Jun, 2014 [facility] [place] [facility] [address] [id number] [place] [address]- 9956 Jun, [facility] [place] [facility] [address] [id number] [place] [address]- 1200 16 Jun, 2014 [facility] [place] [facility] [address] [id number] [place] [address]- 7046 Jun, [facility] [place] [facility] [address] [id number] [place] [address]- 1513 Jun, [facility] [place] [facility] [address] [id number] [place] [address]- 6070 Jun, [facility] [place] [facility] [address] [id number] [place] [address]- 0076 Jun, [facility] [place] [facility] [address] [id number] [place] [address]- 2914 25 May, 2014 [facility] [place] [facility] [address] [id number] [place] [address]- 8153 May, [facility] [place] [facility] [address] [id number] [place] [address]- 8251 11 May, 2014 [facility] [place] [facility] [address] [id number] [place] [address]- 6193 04 May, 2014 [facility] [place] [facility] [address] [id number] [place] [address]- 6440 04 May, 2014 [facility] [place] [facility] [address] [id number] [place] [address]- 1552 May, 2013 [facility] [place] [facility] [address] [id number], [place] [address]- 9491 May, [facility] [place] [facility] [address] [id number] [place] [address]- 5955 Apr, [facility] [place] [facility] [address] [id number] [place] [address]- 9896 Apr, [facility] [place] [facility] [address] [id number] [place] [address]- 7060 15 Apr, 2014 [facility] [place] [facility] [address] [id number] [place] [address]- 3962 15 Apr, 2014 [facility] [place] [facility] [address] [id number] [place] [address]- 3592 Apr, [facility] [place] [facility] [address] [id number] [place] [address]- 4014 Apr, [facility] [place] [facility] [address] [id number] [place] [address]- 3943 Apr, [facility] [place] [facility] [address] [id number] [place] [address]- 1219 Apr, [facility] [place] [facility] [address] [id number] [place] [address]- 1852 Apr, [facility] [place] [facility] [address] [id number] [place] [address] Apr, [facility] [place] [facility] [address] [id number] [place] [address] Apr, [facility] [place] [facility] [address] [id number] [place] [address] Mar, [facility] [place] [facility] [address] [id number] [place] [address] Mar, [facility] [place] [facility] [address] [id number] [place] [address] Mar, [facility] [place] [facility] [address] [id number] [place] [address] Mar, [facility] [place] [facility] [address] [id number] [place] [address] Feb, [facility] [place] [facility] [address] [id number] [place] [address] Feb, [facility] [place] [facility] [address] [id number] [place] [address] Feb, [facility] [place] [facility] [address] [id number] [place] [address] Feb, [facility] [place] [facility] [address] [id number] [place] [address] Feb, [facility] [place] [facility] [address] [id number] [place] [address] Feb, [facility] [place] [facility] [address] [id number] [place] [address] Feb, [facility] [place] [facility] [address] [id number] [place] [address] Feb, [facility] [place] [facility] [address] [id number] [place] [address] January, [facility] [place] [facility] [address] [id number] [place] [address] January, [facility] [place] [facility] [address] [id number] [place] [address] January, [facility] [place] [facility] [address] [id number] [place] [address] January, [facility] [place] [facility] [address] [id number] [place] [address] Dec, [facility] [place] [facility] [address] [id number] [place] [address] Dec, [facility] [place] [facility] [address] [id number] [place] [address] Dec, [facility] [place] [facility] [address] [id number] [place] [address] Dec, [facility] [place] [facility] [address] [id number] [place] [address] Dec, [facility] [place] [facility] [address] [id number] [place] [address]- [address] Dec, [facility] [place] [facility] [address] [id number] [place] [address] Dec, [facility] [place] [facility] [address] [id number] [place] [address] Dec, [facility] [place] [facility] [address] [id number] [place] [address] Dec, [facility] [place] [facility] [address] [id number] [place] [address] Dec, [facility] [place] [facility] [address] [id number] [place] [address] Nov, [facility] [place] [facility] [address] [id number] [place] [address] Nov, [facility] [place] [facility] [address] [id number] [place] [address] Nov, [facility] [place] [facility] [address] [id number] [place] [address] Nov, [facility] [place] [facility] [address] [id number] [place] [address] Nov, [facility] [place] [facility] [address] [id number] [place] [address] Oct, [facility] [place] [facility] [address] [id number] [place] [address] Oct, [facility] [place] [facility] [address] [id number] [place] [address] Sep, [facility] [place] [facility] [address] [id number] [place] [address] Sep, [facility] [place] [facility] [address] [id number] [place] [address] Sep, [facility] [place] [facility] [address] [id number] [place] [address] Sep, [facility] [place] [facility] [address] [id number] [place] [address] Aug, [facility] [place] [facility] [address] [id number] [place] [address] Aug, [facility] [place] [facility] [address] [id number] [place] [address] 05 Aug, 2012 [facility] [address] [id number] [place] [address] Aug, 2012 [facility] [place] [facility] [address] [id number] [place] [address] Aug, 2012 [facility] [address] [id number] [place] [address] Aug, 2012 [facility] [place] [facility] [address] [id number] [place] [address] Aug, [facility] [address] [id number] [place] [address] Aug, [facility] [address] [id number] [place] [address] Jul, [facility] [place] [facility] [address] [id number] [place] [address] Jul, [facility] [address] [id number] [place] [address] Jul, [facility] [place] [facility] [address] [id number] [place] [address] Jul, [facility] [address] [facility] [address] [facility] [id number] [address] Jun, [facility] [place] [facility] [address] [id number] [place] [address] Jun, [facility] [place] [facility] [address] [id number] [address] Jun, [facility] [place] [facility] [address] [id number] [place] [address] Jun, [facility] [place] [facility] [address] [facility] [id number] [place] [address] Jun, [facility] [place] [facility] [address] [id number] [place] [address] May, [facility] [address] [id number] [place] [address] Apr, [facility] [place] [facility] [address] [id number] [place] [address] Apr, [facility] [address] [id number] [place] [address] Mar, [facility] [place] [facility] [address] [id number] [place] [address] Feb, [facility] [address] [id number] [place] [address] Feb, [facility] [place] [facility] [address] [id number] [place] [address] January, [facility] [address] [id number] [place] [address] January, [facility] [address] [id number] [place] [address] January, [facility] [address] [id number] [place] [address] Nov, [facility] [address] [id number] [place] [address] Oct, [facility] [place] [facility] [address] [id number] [place] [address] Oct, [facility] [place] [facility] [address] [id number], [place] [address] Oct, [facility] [place] [facility] [address] [id number] [place] [address] Sep, [facility] [place] [facility] [address] [id number] [place] [address] Sep, [facility] [place] [facility] [address] [id number] [place] [address] Aug, [facility] [place] [facility] [address] [id number] [place] [address] Aug, [facility] [place] [facility] [address] [id number] [place] [address] Jul, [facility] [place] [facility] [address] [id number] [place] [address] Jul, [facility] [place] [facility] [address] [id number] [place] [address] Jul, [facility] [place] [facility] [address] [id number] [place] [address] Jul, [facility] [place] [facility] [address] [id number] [place] [address] Jul, [facility] [place] [facility] [address] [id number] [place] [address] 60[address] Jul, [facility] [place] [facility] [address] [id number] [place] [address] Jul, [facility] [place] [facility] [address] [id number] [place] [address] 69[address] Jul, [facility] [place] [facility] [address] [id number] [place] [address] Jul, [facility] [place] [facility] [address] [facility] [id number] [place] [address] Jul, [facility] [place] [facility] [address] [id number] [place] [address] Jul, [facility] [place] [facility] [address] [id number], [place] [address] Jul, [facility] [place] [facility] [address] [id number] [place] [address] Jul, [facility] [place] [facility] [address] [id number] [place] [address] Jul, [facility] [place] [facility] [address] [id number], [place] [address] Jun, [facility] [place] [facility] [address] [id number] [place] [address] Jun, [facility] [place] [facility] [address] [id number] [place] [address]- [address] Jun, [facility] [place] [facility] [address] [id number] [place] [address] 8395 Jun, [facility] [place] [facility] [address] [id number] [place] [address] 2083 Jun, [facility] [place] [facility] [address] [id number] [place] [address] Jun, [facility] [place] [facility] [address] [id number] [place] [address] Jun, [facility] [place] [facility] [address] [id number] [place] [address] 75[address] Apr, [facility] [place] [facility] [address] [id number] [place] [address] Apr, [facility] [place] [facility] [address] [id number] [place] [address] 7928 Mar, [facility] [place] [facility] [address] [id number] [place] [address] Feb, [facility] [place] [facility] [address] [id number] [place] [address] 46[address] Feb, [facility] [place] [facility] [address] [id number] [place] [address] January, [facility] [place] [facility] [address] [id number] [place] [address]- 3764 January, [facility] [place] [facility] [address] [id number] [place] [address]- 6865 Dec, [facility] [place] [facility] [address] [id number] [place] [address] 3899 Dec, [facility] [place] [facility] [address] [id number] [place] [address]64 Nov, [facility] [address] [id number] [place] [address] 26[address] Oct, [facility] [address] [id number] [place] [address] Oct, [facility] [address] [id number] [place] [address]- 9163 Oct, [facility] [address] [id number] [place] [address]- 8035 Sep, [facility] [address] [id number] [place] [address]- 9656 Aug, [facility] [address] [id number] [place] [address]- 49[address] 14 Aug, 2011 [facility] [address] [id number] [place] [address] 44[address] Aug, [facility] [address] [id number] [place] [address]- [address] 05 Aug, 2011 [facility] [address] [id number] [place] [address]- 65[address] Aug, [facility] [place] [facility] [address] [facility] [id number] [place] [address]- [address]11 Jul, [facility] [address] [id number], [place] [address] Jul, [facility] [place] [facility] [address] [id number] [place] [address]- 67[address] Jul, [facility] [place] [facility] [address] [id number] [place] [address]- 9359 Jul, [facility] [place] [facility] [address] [id number] [place] [address]- 2829 29 Aug, 2010 [facility] [place] [facility] [address] [id number] [place] [address]- 2911 Aug, [facility] [place] [facility] [id number] [address] [address] Aug, [facility] [id number], [place] [address] Jun, [facility] [id number], [place] [address]- 85[address] Jun, [facility] [id number] [address] Jun, [facility] [id number], [place] [address]- [address] Jun, [facility] [address] [place] [id number] [place] [address]- [address] Jun, [facility] [id number], [place] [address]- 92[address] Jul, [facility] [id number] [place] [address]- [address] Jul, [facility] [id number], [place] [address]- 118[address] Jun, [facility] [id number] [address] [address] Jun, IMMUNIZATIONS Vaccine Route Administration Date Status PCV 13 IM Intramuscular Aug 01, 2017 Administered SOCIAL HISTORY Never Assessed REASON FOR VISIT Pain management (chronic)--Sanna De Souza MA PLAN OF CARE Activity Details Follow Up 3 Months Reason:chronic pain VITAL SIGNS Height 68 in 2017-08-01 Weight 170.5 lbs 2017-08-01 Temperature 98.2 degrees Fahrenheit 2017-08-01 Heart Rate 78 bpm 2017-08-01 Respiratory Rate 20 2017-08-01 BMI 25.92 kg/m2 2017-08-01 Blood pressure systolic 120 mmHg 2017-08-01 Blood pressure diastolic 90 mmHg 2017-08-01 MEDICATIONS Medication Instructions Dosage Frequency Start Date End Date Duration Status Aspirin Adult Low Strength 81 MG Orally Once a day 1 tablet 24h Active Imitrex 100 MG Orally Twice a day 1 tablet as needed 12h Active Spiriva HandiHaler 18 MCG Inhalation Once a day 1 capsule 24h January, 30 days Active cyclobenzaprine 10 mg 1 tablet by Oral route 3 times per day PRN Nov 30 Active Propranolol HCl ER 160 MG Orally Once a day 1 capsule 24h Jun, 90 days Active ProAir HFA 108 (90 Base) MCG/ACT Inhalation every 4 hrs 2 puffs as needed 4h Jul, Active Hydrocodone-Acetaminophen 7.5-325 MG Orally 3 times a day 1 tablet as needed for pain 8h Jul, 28 days Active Tamsulosin HCl 0.4 MG Orally Once a day 1 capsule 30 minutes after the same meal each day 24h 30 Active Amlodipine Besylate 10 mg Orally Once a day 1 tablet 24h Jun, 90 days Active Carafate 1 GM TAKE ONE TABLET BY MOUTH FOUR TIMES DAILY BEFORE MEALS AND AT BEDTIME 30 Active Bentyl 20 MG Orally Four times a day 1 tablet 6h 30 Active Sertraline HCl 100 MG Orally Once a day 1 tablet 24h 90 Active Cortisporin 3.5-60180-9 Otic Three times a day 4 drops into affected ear 8h January, 10 days Not-Taking Flomax 0.4 MG TAKE ONE CAPSULE BY MOUTH DAILY 30 Active Flonase Allergy Relief 50 MCG/ACT Nasally twice a day 1 spray in each nostril 12h Nov, Active Naproxen 500 MG TAKE ONE TABLET BY MOUTH TWICE DAILY WITH FOOD 30 Not-Taking Advair Diskus 250 mcg-50 mcg 1 puffs 2 times per day Apr, Active Amitriptyline HCl 25 MG TAKE ONE TO TWO TABLETS BY MOUTH ONCE DAILY AT BEDTIME. 30 Active RESULTS No Results PROCEDURES Procedure Date Ordered Result Body Site PCV 13 Aug 01, 2017 SINGLE IMMUNIZATION ADMIN Aug 01, 2017 INSTRUCTIONS MEDICATIONS ADMINISTERED No Known Medications [...]
--- OUTSIDE RECORDS SUMMARY | 2018-05-26 08:25 | XMS REPORT ---
Author Author LASHAY BLACK Organization [facility] Address [address] [place] [address] Care Team Providers Care Director Product Development Name Role Phone LASHAY BLACK Unavailable PROBLEMS Type Condition ICD9-CM Code TTF36-QE Code Onset Dates Condition Status SNOMED Code Problem Obstructive sleep apnea G47.33 Active 58842650 Problem Chronic obstructive pulmonary disease, unspecified COPD type J44.9 Active 30211292 Problem Irritable bowel syndrome with diarrhea K58.0 Active 245422159 Problem Migraine without aura and without status migrainosus, not intractable G43.009 Active 182970535 Problem Post concussion syndrome F07.81 Active 62035125 Problem Hypercholesterolemia E78.00 Active 78642235 Problem Venous vascular malformations Q27.9 Active 565939421 Problem Other headache syndrome G44.89 Active 309447248 Problem 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 061439434 Problem Anxiety F41.9 Active 34207234 Problem Cervicalgia M54.2 Active 51872089 Problem Unspecified asthma, uncomplicated J45.909 Active 404307225 Problem Other chronic pain G89.29 Active 41241156 Problem Hypertension I10 Active 93083876 Problem 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
--- OUTSIDE RECORDS SUMMARY | 2018-05-26 08:25 | XMS REPORT ---
Author Author LASHAY BLACK Organization [facility] Address [address] [place] [address] Care Team Providers Care Level Glass Vial Filler Name Role Phone LASHAY BLACK Unavailable PROBLEMS Type Condition ICD9-CM Code [id number] Code Onset Dates Condition Status SNOMED Code Problem Irritable bowel syndrome with diarrhea K58.0 Active 101815799 Problem Venous vascular malformations Q27.9 Active 585073066 Problem Chronic obstructive pulmonary disease, unspecified COPD type J44.9 Active 82366299 Problem Primary insomnia F51.01 Active 1209533 Problem Migraine without aura and without status migrainosus, not intractable G43.009 Active 320860872 Problem 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 472697021 Problem Hypercholesterolemia E78.00 Active 65436161 Problem Post concussion syndrome F07.81 Active 08157071 Problem Other headache syndrome G44.89 Active 685771563 Problem Unspecified asthma, uncomplicated J45.909 Active 237597176 Problem Cervicalgia M54.2 Active 76742151 Problem Other chronic pain G89.29 Active 64635544 Problem Hypertension I10 Active 56586351 Problem Idiopathic sleep related nonobstructive alveolar 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 Active 31543022 Problem Anxiety F41.9 Active 30888987 Problem Obstructive sleep apnea G47.33 Active 33525476 ALLERGIES No Information ENCOUNTERS Encounter Location Date Diagnosis [facility] [id number] [address] January, [facility] [id number] [place] [address] 79694- 9283 Dec, Drug-induced constipation K59.03 ; Fatigue, unspecified type R53.83 ; Forgetfulness R68.89 ; Other chronic pain G89.29 and Primary insomnia F51.01 [facility] [id number] [place] [address] 22445- 5571 Nov, [facility] [id number] [place] [address] 43131- 2217 Oct, Other chronic pain G89.29 [facility] [id number] [place] [address] 46010- 3892 Sep, Other chronic pain G89.29 [facility] [id number] [place] [address] 77458- 7771 Sep, Other chronic pain G89.29 [facility] [id number] [place] [address] 49666- 6307 Aug, Other chronic pain G89.29 [place] [address] 17409- 9237 Jul, Other chronic pain G89.29 ; Encounter for immunization Z23 and Side effects of treatment, initial encounter T88.9XXA [place] [address] 85943- 4632 Jul, Other chronic pain G89.29 [facility] [id number] [place] [address] 56537 -5408 Jul, [facility] [id number] [place] [address] 93253- 6538 Jul, Encounter for immunization Z23 [facility] [id number] [place] [address] 11934- 0876 Jun, Hypertension I10 ; Other headache syndrome G44.89 ; Post concussion syndrome F07.81 and Other chronic pain G89.29 [facility] [id number] [place] [address] 11875- 8337 May, [place] [address] 55645- 1185 May, Migraine without aura and without status migrainosus, not intractable G43.009 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 [id number] [place] [address] 48278- 1087 May, Other chronic pain G89.29 [facility] [id number] [place] [address] 66449- 1455 Apr, Chronic obstructive pulmonary disease, unspecified COPD type J44.9 [facility] [id number] [place] [address] 78723- 7565 Apr, Chronic obstructive pulmonary disease, unspecified COPD type J44.9 [facility] [id number] [place] [address] 07878- 0629 Apr, Other chronic pain G89.29 ; Irritable bowel syndrome with diarrhea K58.0 and Hypercholesterolemia E78.00 [place] [id number] [place] [address] 88561- 8758 Apr, Other chronic pain G89.29 [facility] [id number] [place] [address] 12013- 2003 Mar, Other chronic pain G89.29 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 [id number] [place] [address] 91455- 2273 Feb, [facility] [id number] [place] [address] 81085- 1346 January, [facility] [id number] [place] [address] 60426- 7691 January, Other chronic pain G89.29 [facility] [id number] [place] [address] 71782- 9934 January, [place] [id number] [place] [address] 80076- 6433 January, [facility] [id number] [place] [address] 54727- 1891 January, Other chronic pain G89.29 ; Irritable bowel syndrome with diarrhea K58.0 and Hypercholesterolemia E78.00 [facility] [id number] [place] [address] 30151- 9872 January, Other chronic pain G89.29 ; Hypertension I10 ; Irritable bowel syndrome with diarrhea K58.0 ; Chronic obstructive pulmonary disease, unspecified COPD type J44.9 and Venous vascular malformations Q27.9 [facility] [id number] [place] [address] 97109 -1855 January, Acute otitis externa of right ear, unspecified type H60.501 [facility] [id number] [place] [address] 87497- 1733 Dec, Other chronic pain G89.29 [facility] [id number] [place] [address] 43883- 2361 Dec, Hypertension I10 [facility] [id number] [place] [address] 90467- 8525 Nov, Other chronic pain G89.29 [facility] [id number] [place] [address] 97674- 5862 Oct, Other chronic pain G89.29 [facility] [id number] [place] [address] 61259- 3925 Sep, Other chronic pain G89.29 [facility] [id number] [place] [address] 64604- 0262 Sep, Hypertension I10 [facility] [id number] [place] [address] 58738- 1872 Sep, Other chronic pain G89.29 [facility] [id number] [place] [address] 85125- 0742 Aug, Arthralgia, unspecified joint M25.50 ; Other chronic pain G89.29 ; Obstructive sleep apnea G47.33 and Idiopathic sleep related nonobstructive alveolar 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 [place] [id number] [place] [address] 63169- 4067 Aug, [place] [address] 41535- 1230 Aug, Other chronic pain G89.29 [place] [address] 96239- 0854 Jul, Chronic obstructive pulmonary disease, unspecified COPD type J44.9 and Diarrhea, unspecified type R19.7 [place] [address] 94155- 8474 Jul, Other chronic pain G89.29 [place] [address] 91681- 5330 Jul, Skin tags, multiple acquired L91.8 [place] [address] 57540- 6916 Jun, [place] [address] 53353- 6681 Jun, Hypertension I10 [place] [address] 07055- 4251 May, Mouth pain K13.79 and Other chronic pain G89.29 [place] [id number] [place] [address] 52713- 5551 May, [place] [address] 45813- 0520 May, [place] [address] 05386- 7751 May, Pain in right knee M25.561 and Other chronic pain G89.29 [place] [address] 28156- 3311 Apr, Cervicalgia M54.2 [place] [address] 68559- 8732 Mar, Cervicalgia M54.2 [place] [address] 72260- 5693 27 Feb, 2016 Fever, unspecified fever cause R50.9 and Arthralgia, unspecified joint M25.50 [place] [address] 22827- 7073 15 Feb, 2016 Hypertension I10 and Chronic pain syndrome G89.4 [place] [address] 92816- 7440 08 Feb, 2016 Cervicalgia M54.2 [place] [address] 74251- 1055 January, [place] [address] 87009- 2680 Dec, Chest pain R07.9 ; Family history of early CAD Z82.49 ; Hypertension I10 ; Fatigue R53.83 and History of IBS Z87.19 [place] [address] 97384- 9200 Dec, [place] [address] 31312- 3766 Nov, Allergic rhinitis J30.9 [place] [address] 44083- 0699 Nov, [place] [address] 24255- 5345 Nov, Hypertension I10 and Anxiety F41.9 [place] [address] 25506- 0046 Nov, [place] [address] 28364- 4969 Oct, [place] [id number] [place] [address] 65853- 3037 10 Oct, 2015 Chest pain R07.9 ; Family history of early CAD Z82.49 ; Hypertension I10 ; Fatigue R53.83 and History of IBS Z87.19 [place] [id number] [place] [address] 33635- 5500 Oct, [place] [address] 63915- 1610 Oct, Chest pain, unspecified R07.9 [place] [id number] [place] [address] 01530- 3483 Oct, Chest pain, unspecified R07.9 ; Irritable bowel syndrome with diarrhea K58.0 ; Fatigue R53.83 and Degenerative disc disease, cervical M50.30 [place] [id number] [place] [address] 48413- 8994 Oct, [place] [id number] [place] [address] 92859- 3649 Oct, [place] [id number] [place] [address] 14693- 3621 Sep, [place] [id number] [place] [address] 16309- 4646 Sep, [place] [id number] [place] [address] 10637- 0116 Aug, [facility] [id number] [place] [address] 44705- 6606 Aug, [place] [id number] [place] [address] 48636- 0343 Aug, [facility] [id number] [place] [address] 52774- 2883 Jul, Cervicalgia M54.2 ; Headache R51 ; Post-traumatic headache, unspecified, not intractable G44.309 and Unspecified intracranial injury without loss of consciousness, sequela S06.9X0S [facility] [place] [facility] [id number] [address]- 6732 Jul, [facility] [place] [facility] [id number] [place] [address]- 0194 Jul, [facility] [place] [facility] [id number] [place] [address]- 7446 Jun, [facility] [place] [facility] [id number] [place] [address] 86946- 9463 Jun, Encounter for immunization Z23 [facility] [place] [facility] [id number] [place] [address], [place] [address]- 3529 Jun, [facility] [place] [facility] [id number] [place] [address] 80482- 9508 May, [facility] [id number] [place] [address] 88071- 1642 May, [facility] [place] [facility] [id number] [address]- 2364 Apr, [facility] [place] [facility] [id number] [place] [address], [place] [address]- 0815 Apr, [facility] [place] [facility] [address] [address]- 5244 Apr, [facility] [place] [facility] [address] [address]- 7391 Mar, [facility] [place] [facility] [address] [address]- 2777 Mar, [facility] [place] [facility] [address] [address]- 2567 Mar, [facility] [place] [facility] [address] [address]- 6916 Feb, [facility] [place] [facility] [address] [address]- 0346 Feb, [facility] [place] [facility] [address] [id number] [place] [address]- 4529 January, [facility] [place] [facility] [address] [id number] [place] [address]- 4239 January, [facility] [place] [facility] [address] [id number] [place] [address]- 1037 Dec, [facility] [place] [facility] [address] [id number] [place] [address]- 8843 Dec, [facility] [place] [facility] [address] [id number] [place] [address]- 4549 Nov, [facility] [place] [facility] [address] [id number] [place] [address]- 6740 Nov, [facility] [place] [facility] [address] [id number] [place] [address]- 9981 Nov, [facility] [place] [facility] [address] [id number] [place] [address]- 2459 Nov, [facility] [place] [facility] [address] [id number] [place] [address]- 9536 Nov, [facility] [place] [facility] [address] [id number] [place] [address]- 7226 Nov, [facility] [place] [facility] [address] [id number] [place] [address]- 8937 Nov, [facility] [place] [facility] [address] [id number] [place] [address]- 0738 Nov, [facility] [place] [facility] [address] [id number] [place] [address]- 6173 Nov, [facility] [place] [facility] [address] [id number] [place] [address]- 7079 Nov, [facility] [place] [facility] [address] [id number] [place] [address]- 6706 Nov, [facility] [place] [facility] [address] [id number] [place] [address]- 2798 Nov, [facility] [place] [facility] [address] [id number] [place] [address]- 5751 Nov, [facility] [place] [facility] [address] [id number] [place] [address]- 5701 Nov, [facility] [place] [facility] [address] [id number] [place] [address]- 2191 Oct, [facility] [place] [facility] [address] [id number] [place] [address]- 4357 Oct, [facility] [place] [facility] [address] [id number] [place] [address]- 4105 Oct, [facility] [place] [facility] [address] [id number] [place] [address]- 0026 Oct, [facility] [place] [facility] [address] [id number] [place] [address]- 5295 Sep, [facility] [place] [facility] [address] [id number] [place] [address]- 8665 Sep, [facility] [place] [facility] [address] [id number] [place] [address]- 2827 Sep, [facility] [place] [facility] [address] [id number] [place] [address]- 9733 Sep, [facility] [place] [facility] [address] [id number] [place] [address]- 9197 Sep, [facility] [place] [facility] [address] [id number] [place] [address]- 3114 Sep, [facility] [place] [facility] [address] [id number] [place] [address]- 9536 Sep, [facility] [place] [facility] [address] [id number] [place] [address]- 1504 Sep, [facility] [place] [facility] [address] [id number] [place] [address]- 7440 Aug, [facility] [place] [facility] [address] [id number] [place] [address]- 6907 Aug, [facility] [address] [id number] [place] [address]- 7932 Aug, [facility] [place] [facility] [address] [id number] [place] [address]- 1386 Aug, [facility] [place] [facility] [address] [id number] [place] 6244 Aug, [facility] [place] [facility] [address] [id number] [place] [address]- 3130 Aug, [facility] [place] [facility] [address] [id number] [place] [address]- 7681 Aug, [facility] [place] [facility] [address] [id number] [place] [address]- 5513 Aug, [facility] [place] [facility] [address] [id number] [place] [address]- 3382 Jul, [facility] [place] [facility] [address] [id number] [place] [address]- 9372 Jul, [facility] [place] [facility] [address] [id number] [place] [address]- 3938 Jul, [facility] [place] [facility] [address] [id number] [place] [address]- 4564 Jul, [facility] [place] [facility] [address] [id number] [place] [address]- 0189 Jul, [facility] [place] [facility] [address] [id number] [place] [address]- 2680 Jul, [facility] [place] [facility] [address] [id number] [place] 6776 Jul, [facility] [place] [facility] [address] [id number] [place] [address]- 5654 Jul, [facility] [place] [facility] [address] [id number] [place] [address]- 2485 Jul, [facility] [place] [facility] [address] [id number] [place] [address]- 7932 Jul, [facility] [place] [facility] [address] [id number] [place] [address]- 1100 Jul, [facility] [place] [facility] [address] [id number] [place] [address]- 5189 Jun, [facility] [place] [facility] [address] [id number] [place] [address]- 9853 Jun, [facility] [place] [facility] [address] [id number] [place] 7750 Jun, [facility] [place] [facility] [address] [id number] [place] [address]- 0236 Jun, [facility] [place] [facility] [address] [id number] [place] [address]- 9816 Jun, [facility] [place] [facility] [address] [id number] [place] [address]- 5984 Jun, [facility] [place] [facility] [address] [id number] [place] [address]- 6335 Jun, [facility] [place] [facility] [address] [id number] [place] [address]- 8629 Jun, [facility] [place] [facility] [address] [id number] [address]- 6512 Jun, [facility] [place] [facility] [address] [id number], [place] [address]- 3808 Jun, [facility] [place] [facility] [address] [id number] [place] [address]- 5164 Jun, [facility] [place] [facility] [address] [id number] [place] [address]- 4016 Jun, [facility] [place] [facility] [address] [id number], [place] [address]- 5522 Jun, [facility] [place] [facility] [address] [id number], [place] [address]- 7751 Jun, [facility] [place] [facility] [address] [id number] [place] [address]- 0349 Jun, [facility] [place] [facility] [address] [id number] [place] [address]- 8629 Jun, [facility] [place] [facility] [address] [id number] [place] [address]- 3909 Jun, [facility] [place] [facility] [address] [id number] [place] [address]- 2829 25 May, 2014 [facility] [place] [facility] [address] [id number] [place] [address]- 0931 11 May, 2014 [facility] [place] [facility] [address] [id number] [place] [address]- 1011 11 May, 2014 [facility] [place] [facility] [address] [id number] [place] [address] 04 May, 2014 [facility] [place] [facility] [address] [id number] [place] [address] 04 May, 2014 [facility] [place] [facility] [address] [id number] [place] [address] 03 May, 2014 [facility] [place] [facility] [address] [id number] [place] [address] 03 May, 2014 [facility] [place] [facility] [address] [id number] [place] [address] Apr, [facility] [place] [facility] [address] [id number] [place] [address] Apr, [facility] [place] [facility] [address] [id number] [place] [address] 15 Apr, 2014 [facility] [place] [facility] [address] [id number] [place] [address] 15 Apr, 2014 [facility] [place] [facility] [address] [id number] [place] [address] 14 Apr, 2014 [facility] [place] [facility] [address] [id number] [place] [address] Apr, [facility] [place] [facility] [address] [id number] [place] [address] Apr, [facility] [place] [facility] [address] [id number] [place] [address] Apr, [facility] [place] [facility] [address] [id number] [place] [address] Apr, [facility] [place] [facility] [address] [id number] [place] [address] Apr, [facility] [place] [facility] [address] [id number] [place] [address] Apr, [facility] [place] [facility] [address] [id number] [place] [address] Mar, [facility] [place] [facility] [address] [id number] [place] [address] Mar, [facility] [place] [facility] [address] [id number] [place] [address] Mar, [facility] [place] [facility] [address] [id number] [place] [address] Mar, [facility] [place] [facility] [address] [id number] [place] [address] Feb, [facility] [place] [facility] [address] [id number] [place] [address] Feb, [facility] [place] [facility] [address] [id number] [place] [address] Feb, [facility] [place] [facility] [address] [id number] [place] [address] Feb, [facility] [place] [facility] [address] [id number] [place] [address] Feb, [facility] [place] [facility] [address] [id number] [place] [address] Feb, [facility] [place] [facility] [address] [id number] [place] [address] Feb, [facility] [place] [facility] [address] [id number] [place] [address] Feb, [facility] [place] [facility] [address] [id number] [place] [address] January, [facility] [place] [facility] [address] [id number] [place] [address] January, [facility] [place] [facility] [address] [id number] [place] [address] January, [facility] [place] [facility] [address] [id number] [place] [address] January, [facility] [place] [facility] [address] [id number] [place] [address] Dec, [facility] [place] [facility] [address] [id number] [place] [address] Dec, [facility] [place] [facility] [address] [id number] [place] [address] Dec, [facility] [place] [facility] [address] [id number] [place] [address]- [address] Dec, [facility] [place] [facility] [address] [id number] [place] [address]- [address] Dec, [facility] [place] [facility] [address] [id number] [place] [address]- 8253 Dec, [facility] [place] [facility] [address] [id number] [place] [address] Dec, [facility] [place] [facility] [address] [id number] [place] [address] 6843 Dec, [facility] [place] [facility] [address] [id number] [place] [address] 39[address] Dec, [facility] [place] [facility] [address] [id number] [place] [address]- 7066 Dec, [facility] [place] [facility] [address] [id number] [place] [address] 1497 Nov, [facility] [place] [facility] [address] [id number] [place] [address] 98[address] Nov, [facility] [place] [facility] [address] [id number] [place] [address]- [address] Nov, [facility] [place] [facility] [address] [id number] [place] [address]- [address] Nov, [facility] [place] [facility] [address] [id number] [place] [address] Nov, [facility] [place] [facility] [address] [id number] [place] [address]- 75[address] Oct, [facility] [place] [facility] [address] [id number] [place] [address] Oct, [facility] [place] [facility] [address] [id number] [place] [address] Sep, [facility] [place] [facility] [address] [id number] [place] [address] Sep, [facility] [place] [facility] [address] [id number] [place] [address] Sep, [facility] [place] [facility] [address] [id number] [place] [address] Sep, [facility] [place] [facility] [address] [id number] [place] [address] Aug, [facility] [place] [facility] [address] [id number] [place] [address] Aug, [facility] [place] [facility] [address] [id number] [place] [address] Aug, [facility] [place] [facility] [address] [id number] [place] [address] Aug, [facility] [place] [facility] [address] [id number] [place] [address] Aug, [facility] [place] [facility] [address] [id number] [place] [address] Aug, [facility] [place] [facility] [address] [id number] [place] [address] Aug, [facility] [place] [facility] [address] [id number] [place] [address] Aug, [facility] [address] [id number] [place] [address] Jul, [facility] [place] [facility] [address] [id number] [place] [address] 1625 Jul, [facility] [address] [id number] [place] [address] Jul, [facility] [place] [facility] [address] [id number] [place] [address] Jul, [facility] [place] [facility] [address] [id number] [place] [address] Jun, [facility] [place] [facility] [address] [id number] [place] [address] Jun, [facility] [place] [facility] [address] [id number] [place] [address] Jun, [facility] [place] [facility] [address] [id number], [place] [address] Jun, [facility] [place] [facility] [address] [id number] [place] [address] Jun, [facility] [place] [facility] [address] [id number] [place] [address] May, [facility] [place] [facility] [address] [id number], [place] [address] Apr, [facility] [place] [facility] [address] [id number] [address] Apr, [facility] [address] [id number] [place] [address] 1787 Mar, [facility] [address] [id number] [place] [address] 43[address] Feb, [facility] [address] [id number] [place] [address] Feb, [facility] [address] [id number] [place] [address] 48[address] January, [facility] [address] [id number] [place] [address] 2019 January, [facility] [address] [id number] [place] [address] January, [facility] [address] [facility] [id number] [place] [address] Nov, [facility] [address] [id number] [place] [address] 26[address] Oct, [facility] [address] [id number] [place] [address] Oct, [facility] [address] [id number] [place] [address] 7690 Oct, [facility] [address] [id number] [place] [address] Sep, [facility] [address] [id number], [place] [address] Sep, [facility] [address] [id number] [place] [address] 2890 Aug, [facility] [place] [facility] [address] [id number] [place] [address]- 3088 Aug, [facility] [address] [id number] [place] [address]- 4750 Jul, [facility] [place] [facility] [address] [id number] [place] [address] 9479 Jul, [facility] [place] [facility] [address] [id number] [place] [address] 1288 Jul, [facility] [place] [facility] [address] [id number] [place] [address] Jul, [facility] [place] [facility] [address] [id number] [place] [address] 4[address] Jul, [facility] [place] [facility] [address] [id number] [place] [address] 8223 Jul, [facility] [place] [facility] [address] [id number] [place] [address]- 9906 Jul, [facility] [place] [facility] [address] [id number] [place] [address] 8271 Jul, [facility] [place] [facility] [address] [id number] [place] [address] 4920 Jul, [facility] [place] [facility] [address] [id number] [place] [address] 6409 Jul, [facility] [place] [facility] [address] [id number] [place] [address]- 8069 Jul, [facility] [place] [facility] [address] [id number] [place] [address]- 0065 Jul, [facility] [place] [facility] [address] [id number] [place] [address] 4934 Jul, [facility] [place] [facility] [address] [id number] [place] [address] 0376 Jul, [facility] [place] [facility] [address] [id number] [place] [address]- 5822 Jun, [facility] [place] [facility] [address] [id number] [place] [address]- 2200 Jun, [facility] [place] [facility] [address] [id number] [place] [address]- 2890 Jun, [facility] [place] [facility] [address] [id number] [place] [address] 1910 Jun, [facility] [place] [facility] [address] [id number] [place] [address]- 0794 Jun, [facility] [place] [facility] [address] [id number] [place] [address]- 8903 Jun, [facility] [place] [facility] [address] [id number] [place] [address]- 7521 Jun, [facility] [place] [facility] [address] [id number] [place] [address]- 0121 Apr, [facility] [place] [facility] [address] [id number] [place] [address]- 2132 Apr, [facility] [place] [facility] [address] [id number] [place] [address]- 6509 Mar, [facility] [place] [facility] [address] [id number] [place] [address]- 9018 Feb, [facility] [place] [facility] [address] [id number] [place] [address]- 0099 Feb, [facility] [place] [facility] [address] [facility] [id number] [place] [address]- 9039 January, [facility] [place] [facility] [address] [id number], [place] [address] January, [facility] [place] [facility] [address] [id number], [place] [address] 8843 Dec, [facility] [place] [facility] [address] [id number] [place] [address]- 8546 Dec, [facility] [place] [facility] [address] [id number], [place] [address] 3186 Nov, [facility] [place] [facility] [address] [id number] [place] [address]- 6286 Oct, [facility] [place] [facility] [address] [id number] [place] [address]- 3730 09 Oct, 2011 [facility] [address] [id number] [place] [address]- 7534 08 Oct, 2011 [facility] [address] [id number] [place] [address] 3839 Sep, [facility] [address] [id number] [place] [address]- 9109 14 Aug, 2011 [facility] [address] [id number] [place] [address]- 9061 14 Aug, 2011 [facility] [address] [id number] [place] [address]- 3290 Aug, [facility] [address] [facility] [id number] [place] [address]- 3662 05 Aug, 2011 [facility] [address] [facility] [id number] [place] [address]- 3420 Aug, [facility] [address] [id number] [place] [address]- 8428 Jul, [facility] [address] [facility] [id number] [place] [address]- 3593 Jul, [facility] [address] [facility] [id number] [place] [address]- 3582 Jul, [facility] [address] [id number] [place] [address]- 0939 Jul, [facility] [address] [id number] [place] [address]- 5007 29 Aug, 2010 [facility] [address] [id number] [place] [address]- 8791 28 Aug, 2010 [facility] [place] [facility] [address] [facility] [id number] [place] [address]- 0374 13 Aug, 2010 [facility] [address] [facility] [id number] [place] [address]- 5042 Jun, [facility] [address] [id number] [address] Jun, [facility] [id number], [place] [address] Jun, [facility] [id number], [place] [address]- [address] Jun, [facility] [id number], [place] [address]- 6350 Jun, [facility] [id number], [place] [address]- 2654 Jul, [facility] [id number], [place] [address]- 8[address] Jul, [facility] [id number], [place] [address]- 68[address] Jun, [facility] [id number] [address]- 9421 Jun, IMMUNIZATIONS No Known Immunizations SOCIAL HISTORY Never Assessed REASON FOR VISIT Elevated BP- FY PLAN OF CARE VITAL SIGNS MEDICATIONS Unknown [...]
--- OUTSIDE RECORDS SUMMARY | 2018-05-26 08:26 | XMS REPORT ---
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 Name Role Phone LASHAY BLACK Unavailable PROBLEMS Type Condition ICD9-CM Code [id number] Code Onset Dates Condition Status SNOMED Code Problem Irritable bowel syndrome with diarrhea K58.0 Active 038793996 Problem Venous vascular malformations Q27.9 Active 909189050 Problem Chronic obstructive pulmonary disease, unspecified COPD type J44.9 Active 33746691 Problem Primary insomnia F51.01 Active 7609893 Problem Migraine without aura and without status migrainosus, not intractable G43.009 Active 760186005 Problem 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 771794482 Problem Hypercholesterolemia E78.00 Active 03756013 Problem Post concussion syndrome F07.81 Active 92598789 Problem Other headache syndrome G44.89 Active 502593939 Problem Unspecified asthma, uncomplicated J45.909 Active 317720887 Problem Cervicalgia M54.2 Active 21160336 Problem Other chronic pain G89.29 Active 74222034 Problem Hypertension I10 Active 20226030 Problem Idiopathic sleep related nonobstructive alveolar 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 Active 42800582 Problem Anxiety F41.9 Active 58110406 Problem Obstructive sleep apnea G47.33 Active 93884882 ALLERGIES No Information ENCOUNTERS Encounter Location Date Diagnosis [facility] [address] [facility] [id number] [address] January, Arthralgia, unspecified joint M25.50 and Other chronic pain G89.29 [facility] [address] [id number], [place] [address] Dec, Drug-induced constipation K59.03 ; Fatigue, unspecified type R53.83 ; Forgetfulness R68.89 ; Other chronic pain G89.29 and Primary insomnia F51.01 [facility] [id number] [place] [address] 08068- 8251 Nov, [facility] [address] [address]- [address]68 Oct, Other chronic pain G89.29 [facility] [address] [address]- [address] Sep, Other chronic pain G89.29 [facility] [address] [address]02- 8486 Sep, Other chronic pain G89.29 [place] [address] 05703- 2683 Aug, Other chronic pain G89.29 [place] [facility] [address] 72970- 4980 Jul, Other chronic pain G89.29 ; Encounter for immunization Z23 and Side effects of treatment, initial encounter T88.9XXA [facility] [id number] [place] [address] 23539- 4085 Jul, Other chronic pain G89.29 [facility] [id number] [place] [address] 55876 -3629 Jul, [place] [id number] [place] [address] 77735- 1341 Jul, Encounter for immunization Z23 [facility] [address] 33893- 7492 Jun, Hypertension I10 ; Other headache syndrome G44.89 ; Post concussion syndrome F07.81 and Other chronic pain G89.29 [facility] [facility] [id number] [place] [address] 25276- 7355 May, [place] [address] 16426- 2591 May, Migraine without aura and without status migrainosus, not intractable G43.009 [facility] [address], [place] [address] May, 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 [facility] [id number] [place] [address] 44941- 3904 May, Other chronic pain G89.29 [facility] [id number] [place] [address] 62690- 4069 Apr, Chronic obstructive pulmonary disease, unspecified COPD type J44.9 [facility] [id number] [place] [address] 30074- 6547 Apr, Chronic obstructive pulmonary disease, unspecified COPD type J44.9 [facility] [id number] [place] [address] 84100- 2825 Apr, Other chronic pain G89.29 ; Irritable bowel syndrome with diarrhea K58.0 and Hypercholesterolemia E78.00 [facility] [id number] [place] [address] 95628- 0157 Apr, Other chronic pain G89.29 [facility] [id number] [place] [address] 04680- 0896 Mar, Other chronic pain G89.29 [facility] [id number] [place] [address] 18691- 6625 Feb, 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 [facility] [address], [place] [address] 8164 Feb, Other chronic pain G89.29 [facility] [address], [place] [address] 3135 Feb, [facility] [id number] [place] [address] 92472- 8066 January, [facility] [address], [place] [address] January, Other chronic pain G89.29 [facility] [id number] [place] [address] 03008- 6183 January, [facility] [id number] [place] [address] 01021- 6634 January, [facility] [id number] [place] [address] 44174- 0870 January, Other chronic pain G89.29 ; Irritable bowel syndrome with diarrhea K58.0 and Hypercholesterolemia E78.00 [facility] [id number] [place] [address] 17223- 1832 January, Other chronic pain G89.29 ; Hypertension I10 ; Irritable bowel syndrome with diarrhea K58.0 ; Chronic obstructive pulmonary disease, unspecified COPD type J44.9 and Venous vascular malformations Q27.9 [facility] [id number] [place] [address] 95691 -1073 January, Acute otitis externa of right ear, unspecified type H60.501 [facility] [id number] [place] [address] 41308- 5220 Dec, Other chronic pain G89.29 [facility] [id number] [place] [address] 53382- 9127 Dec, Hypertension I10 [facility] [id number] [place] [address] 71210- 6842 Nov, Other chronic pain G89.29 [facility] [id number] [place] [address] 35128- 2373 Oct, Other chronic pain G89.29 [facility] [id number] [place] [address] 43628- 7235 Sep, Other chronic pain G89.29 [facility] [id number] [place] [address] 97792- 3692 Sep, Hypertension I10 [facility] [id number] [place] [address] 63833- 0638 Sep, Other chronic pain G89.29 [facility] [id number] [place] [address] 23347- 6085 Aug, Arthralgia, unspecified joint M25.50 ; Other chronic pain G89.29 ; Obstructive sleep apnea G47.33 and Idiopathic sleep related nonobstructive alveolar 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 [facility] [id number] [place] [address] 27889- 6232 Aug, [facility] [facility] [id number] [place] [address] 17828- 7352 Aug, Other chronic pain G89.29 [place] [facility] [id number] [place] [address] 20259- 9316 Jul, Chronic obstructive pulmonary disease, unspecified COPD type J44.9 and Diarrhea, unspecified type R19.7 [place] [facility] [id number] [place] [address] 90310- 6035 Jul, Other chronic pain G89.29 [facility] [id number] [place] [address] 22039- 8959 Jul, Skin tags, multiple acquired L91.8 [facility] [id number] [place] [address] 07143- 5790 Jun, [facility] [facility] [id number] [place] [address] 41545- 1533 Jun, Hypertension I10 [facility] [facility] [id number] [place] [address] 84877- 0128 May, Mouth pain K13.79 and Other chronic pain G89.29 [facility] [id number] [place] [address] 22874- 3365 May, [facility] [id number] [place] [address] 21972- 0543 May, [facility] [id number] [place] [address] 49316- 9109 May, Pain in right knee M25.561 and Other chronic pain G89.29 [place] [id number] [place] [address] 14250- 5993 Apr, Cervicalgia M54.2 [place] [address] 75534- 3836 Mar, Cervicalgia M54.2 [place] [id number] [place] [address] 17971- 7840 27 Feb, 2016 Fever, unspecified fever cause R50.9 and Arthralgia, unspecified joint M25.50 [place] [address] 38219- 2969 15 Feb, 2016 Hypertension I10 and Chronic pain syndrome G89.4 [place] [address] 82695- 5786 08 Feb, 2016 Cervicalgia M54.2 [place] [address] 08105- 7144 January, [place] [id number] [place] [address] 09322- 2535 Dec, Chest pain R07.9 ; Family history of early CAD Z82.49 ; Hypertension I10 ; Fatigue R53.83 and History of IBS Z87.19 [place] [id number] [place] [address] 77204- 7846 Dec, [place] [id number] [place] [address] 51037- 8269 31 Nov, 2015 Allergic rhinitis J30.9 [place] [id number] [place] [address] 69479- 3818 14 Nov, [address] 92073- 6536 08 Nov, 2015 Hypertension I10 and Anxiety F41.9 [place] [id number] [place] [address] 29573- 9028 Nov, [place] [address] 94320- 1979 Oct, [facility] [id number] [place] [address] 12858- 7079 Oct, Chest pain R07.9 ; Family history of early CAD Z82.49 ; Hypertension I10 ; Fatigue R53.83 and History of IBS Z87.19 [facility] [id number] [place] [address] 49689- 7142 Oct, [facility] [id number] [place] [address] 26218- 0563 Oct, Chest pain, unspecified R07.9 [place] [address] 01273- 7913 Oct, Chest pain, unspecified R07.9 ; Irritable bowel syndrome with diarrhea K58.0 ; Fatigue R53.83 and Degenerative disc disease, cervical M50.30 [facility] [id number] [place] [address] 01975- 3865 Oct, [facility] [id number] [place] [address] 54670- 3048 Oct, [facility] [id number] [place] [address] 63798- 3059 Sep, [facility] [id number] [place] [address] 10288- 5800 Sep, [facility] [id number] [place] [address] 30783- 7421 Aug, [facility] [id number] [place] [address] 45848- 3787 Aug, [facility] [id number] [place] [address] 99499- 7342 Aug, [facility] [id number] [place] [address] 22638- 9601 Jul, Cervicalgia M54.2 ; Headache R51 ; Post-traumatic headache, unspecified, not intractable G44.309 and Unspecified intracranial injury without loss of consciousness, sequela S06.9X0S [facility] [address] [address]234 Jul, [facility] [address] 0085 Jul, [facility] [id number] [place] [address] 832519- 7527 Jun, [facility] [id number] [place] [address] 164864- 0025 Jun, Encounter for immunization Z23 [facility] [id number] [place] [address] 08825- 8240 Jun, [facility] [id number] [place] [address] 64493- 3996 May, [facility] [id number] [place] [address] 26657- 9697 May, [facility] [id number] [place] [address] 06848- 9574 Apr, [facility] [id number] [place] [address] 61791- 7249 Apr, [facility] [address], [place] [address]- 0587 Apr, [facility] [address] [place] [address] 75393- 1901 Mar, [facility] [address], [place] [address]- 5280 Mar, [facility] [address] [address]- 9941 Mar, [facility] [address] 4635 Feb, [facility] [id number] [place] [address] 90545- 4081 Feb, [facility] [place] [facility] [address] [id number] [place] [address]- 6583 January, [facility] [place] [facility] [address] [id number] [place] [address]- 4297 January, [facility] [place] [facility] [address] [id number] [place] [address]- 5025 Dec, [facility] [place] [facility] [address] [id number] [place] [address]- 9001 Dec, [facility] [place] [facility] [address] [id number] [place] [address]- 4180 Nov, [facility] [place] [facility] [address] [id number] [place] [address]- 2689 Nov, [facility] [place] [facility] [address] [id number] [place] [address]- 2021 Nov, [facility] [place] [facility] [address] [id number] [place] [address]- 0653 Nov, [facility] [place] [facility] [address] [id number] [place] [address]- 4864 Nov, [facility] [place] [facility] [address] [id number] [place] [address]- 8342 Nov, [facility] [place] [facility] [address] [id number] [place] [address]- 3712 Nov, [facility] [place] [facility] [address] [id number] [place] [address]- 4909 Nov, [facility] [place] [facility] [address] [id number] [place] [address]- 7756 Nov, [facility] [place] [facility] [address] [id number] [place] [address]- 5210 Nov, [facility] [place] [facility] [address] [id number] [place] [address]- 8285 Nov, [facility] [place] [facility] [address] [id number] [place] [address]- 7696 Nov, [facility] [place] [facility] [address] [id number] [place] [address]- 1473 Nov, [facility] [place] [facility] [address] [id number] [place] [address]- 2543 Nov, [facility] [place] [facility] [address] [id number] [place] [address]- 4285 Oct, [facility] [place] [facility] [address] [id number] [place] [address]- 9142 Oct, [facility] [place] [facility] [address] [id number] [place] [address]- 0300 Oct, [facility] [place] [facility] [address] [id number] [place] [address]- 4228 Oct, [facility] [place] [facility] [address] [id number] [place] [address]- 4773 Sep, [facility] [place] [facility] [address] [id number] [place] [address]- 6264 Sep, [facility] [place] [facility] [address] [id number] [place] [address]- 0394 Sep, [facility] [place] [facility] [address] [id number] [place] [address]- 4230 Sep, [facility] [place] [facility] [address] [id number] [place] [address]- 9749 Sep, [facility] [place] [facility] [address] [id number] [place] [address]- 2188 Sep, [facility] [place] [facility] [address] [id number] [place] [address]- 6383 Sep, [facility] [place] [facility] [address] [id number] [place] [address]- 8495 Sep, [facility] [place] [facility] [address] [id number] [place] [address]- 1172 Aug, [facility] [place] [facility] [address] [id number] [place] 8929 Aug, [facility] [place] [facility] [address] [id number] [place] [address]- 5160 Aug, [facility] [place] [facility] [address] [id number] [place] 6173 Aug, [facility] [place] [facility] [address] [id number] [place] 1446 Aug, [facility] [place] [facility] [address] [id number] [place] [address]- 2732 Aug, [facility] [place] [facility] [address] [id number] [place] [address]- 7218 Aug, [facility] [place] [facility] [address] [id number] [place] [address]- 6648 Aug, [facility] [place] [facility] [address] [id number] [place] [address]- 6508 Jul, [facility] [place] [facility] [address] [id number] [place] [address]- 6202 Jul, [facility] [place] [facility] [address] [id number] [place] [address]- 6353 Jul, [facility] [place] [facility] [address] [id number], [place] [address]- 3547 Jul, [facility] [place] [facility] [address] [id number], [place] [address]- 3231 Jul, [facility] [place] [facility] [address] [id number] [place] [address]- 5234 Jul, [facility] [place] [facility] [address] [id number] [place] [address]- 0451 Jul, [facility] [place] [facility] [address] [id number] [place] 6950 Jul, [facility] [place] [facility] [address] [id number] [place] [address]- 2026 Jul, [facility] [place] [facility] [address] [id number] [place]- 5702 Jul, [facility] [place] [facility] [address] [id number] [place] 7159 Jul, [facility] [place] [facility] [address] [id number] [place] 8990 Jun, [facility] [place] [facility] [address] [id number] [place] [address]- 7704 Jun, [facility] [place] [facility] [address] [id number] [place] [address]- 7456 Jun, [facility] [place] [facility] [address] [id number] [place] [address]- 1920 Jun, [facility] [place] [facility] [address] [id number] [place] [address]- 3294 Jun, [facility] [place] [facility] [address] [id number] [place] [address]- 6326 Jun, [facility] [place] [facility] [address] [id number] [place] [address]- 9660 Jun, [facility] [place] [facility] [address] [id number] [place] [address]- 4316 Jun, [facility] [place] [facility] [address] [id number] [place] [address]- 0031 Jun, [facility] [place] [facility] [address] [id number] [place] [address]- 7462 24 Jun, 2014 [facility] [place] [facility] [address] [id number] [place] [address]- 7278 17 Jun, 2014 [facility] [place] [facility] [address] [id number] [place] [address]- 1285 16 Jun, 2013 [facility] [place] [facility] [address] [id number] [place] 7736 16 Jun, 2014 [facility] [place] [facility] [address] [id number] [place] [address]- 8448 09 Jun, 2014 [facility] [place] [facility] [address] [id number] [place] [address]- 9833 Jun, [facility] [place] [facility] [address] [id number] [place] [address]- 3025 Jun, [facility] [place] [facility] [address] [id number] [place] [address]- 0078 Jun, [facility] [place] [facility] [address] [id number] [place] [address]- 7569 25 May, 2013 [facility] [place] [facility] [address] [id number] [place] [address]- 6425 11 May, 2013 [facility] [place] [facility] [address] [id number] [place] [address]- 0562 May, 2013 [facility] [place] [facility] [address] [id number] [place] [address]- 9289 04 May, 2013 [facility] [place] [facility] [address] [id number] [place] [address]- 0392 04 May, 2014 [facility] [place] [facility] [address] [id number] [place] [address]- 8551 May, [facility] [place] [facility] [address] [id number] [place] [address]- 6473 May, [facility] [place] [facility] [address] [id number], [place] [address]- 8661 Apr, [facility] [place] [facility] [address] [id number] [place] [address]- 3332 Apr, [facility] [place] [facility] [address] [id number] [place] [address]- 4958 Apr, [facility] [place] [facility] [address] [id number] [place] [address]- 1098 Apr, [facility] [place] [facility] [address] [id number] [place] [address]- 5945 Apr, [facility] [place] [facility] [address] [id number] [place] [address]- 5911 Apr, [facility] [place] [facility] [address] [id number] [place] [address]- 0146 Apr, [facility] [place] [facility] [address] [id number] [place] [address]- 9754 Apr, [facility] [place] [facility] [address] [id number] [place] [address]- 9743 Apr, [facility] [place] [facility] [address] [id number] [place] [address]- 1147 Apr, [facility] [place] [facility] [address] [id number] [place] [address]- 5694 Apr, [facility] [place] [facility] [address] [id number] [place] [address]- 5205 Mar, [facility] [place] [facility] [address] [id number] [place] [address]- 0065 Mar, [facility] [place] [facility] [address] [id number] [place] [address]- 7738 Mar, [facility] [place] [facility] [address] [id number] [place] [address]- 0600 Mar, [facility] [place] [facility] [address] [id number] [place] [address]- 3001 Feb, [facility] [place] [facility] [address] [id number] [place] [address]- 3906 Feb, [facility] [place] [facility] [address] [id number] [place] [address] Feb, [facility] [place] [facility] [address] [id number] [place] [address] Feb, [facility] [place] [facility] [address] [id number] [place] [address] Feb, [facility] [place] [facility] [address] [id number] [place] [address] Feb, [facility] [place] [facility] [address] [id number] [place] [address] Feb, [facility] [place] [facility] [address] [id number] [place] [address] Feb, [facility] [place] [facility] [address] [id number] [place] [address] January, [facility] [place] [facility] [address] [id number] [place] [address] January, [facility] [place] [facility] [address] [id number] [place] [address] January, [facility] [place] [facility] [address] [id number] [place] [address] January, [facility] [place] [facility] [address] [id number] [place] [address] Dec, [facility] [place] [facility] [address] [id number] [place] [address] Dec, [facility] [place] [facility] [address] [id number] [place] [address] Dec, [facility] [place] [facility] [address] [id number] [place] [address]- [address]81 Dec, [facility] [place] [facility] [address] [id number] [place] [address] Dec, [facility] [place] [facility] [address] [id number] [place] [address] Dec, [facility] [place] [facility] [address] [id number] [place] [address]- [address] Dec, [facility] [place] [facility] [address] [id number] [place] [address] Dec, [facility] [place] [facility] [address] [id number] [place] [address] Dec, [facility] [place] [facility] [address] [id number] [place] [address] Dec, [facility] [place] [facility] [address] [id number] [place] [address] Nov, [facility] [place] [facility] [address] [id number] [place] [address] Nov, [facility] [place] [facility] [address] [id number] [place] [address] Nov, [facility] [place] [facility] [address] [id number] [place] [address]- [address] Nov, [facility] [place] [facility] [address] [id number] [place] [address] Nov, [facility] [place] [facility] [address] [id number] [place] [address] Oct, [facility] [place] [facility] [address] [id number] [place] [address] Oct, [facility] [place] [facility] [address] [id number] [place] [address] Sep, [facility] [place] [facility] [address] [id number] [place] [address] Sep, [facility] [place] [facility] [address] [id number] [place] [address] Sep, [facility] [place] [facility] [address] [id number], [place] [address] Sep, [facility] [place] [facility] [address] [id number] [place] [address] Aug, [facility] [place] [facility] [address] [id number] [place] [address] Aug, [facility] [place] [facility] [address] [facility] [id number] [place] [address] Aug, [facility] [place] [facility] [address] [id number] [place] [address] 05 Aug, 2012 [facility] [address] [id number] [place] [address] Aug, 2012 [facility] [place] [facility] [address] [id number] [place] [address] Aug, [facility] [place] [facility] [address] [id number] [place] [address] Aug, 2012 [facility] [place] [facility] [address] [id number] [place] [address] Aug, [facility] [place] [facility] [address] [id number] [place] [address] Jul, [facility] [place] [facility] [address] [id number] [place] [address] Jul, [facility] [place] [facility] [address] [facility] [id number] [place] [address]- [address] Jul, [facility] [place] [facility] [address] [id number] [place] [address] Jul, [facility] [place] [facility] [address] [facility] [id number] [place] [address] Jun, [facility] [place] [facility] [address] [facility] [id number] [place] [address]- [address] Jun, [facility] [place] [facility] [address] [facility] [id number] [place] [address]- [address] Jun, [facility] [place] [facility] [address] [id number], [place] [address] Jun, [facility] [place] [facility] [address] [id number] [place] [address] Jun, [facility] [place] [facility] [address] [facility] [id number], [place] [address] May, [facility] [place] [facility] [address] [id number], [place] [address] Apr, [facility] [place] [facility] [address] [id number] [place] [address] Apr, [facility] [address] [id number] [place] [address] Mar, [facility] [address] [id number] [place] [address] Feb, [facility] [address] [id number] [place] [address] Feb, [facility] [address] [id number] [place] [address] January, [facility] [address] [id number] [place] [address] January, [facility] [address] [id number] [place] [address] January, [facility] [address] [id number] [place] [address] Nov, [facility] [address] [id number] [place] [address] Oct, [facility] [address] [id number] [place] [address] Oct, [facility] [address] [id number] [place] [address] Oct, [facility] [address] [id number], [place] [address] Sep, [facility] [address] [id number] [place] [address] Sep, [facility] [address] [id number] [place] [address] Aug, [facility] [place] [facility] [address] [id number] [place] [address] Aug, [facility] [address] [id number], [place] [address] Jul, [facility] [place] [facility] [address] [id number] [place] [address] Jul, [facility] [place] [facility] [address] [id number] [place] [address] Jul, [facility] [place] [facility] [address] [facility] [id number] [place] [address] Jul, [facility] [place] [facility] [address] [id number] [place] [address] Jul, [facility] [place] [facility] [address] [id number] [place] [address] Jul, [facility] [place] [facility] [address] [facility] [id number] [place] [address] Jul, [facility] [place] [facility] [address] [id number], [place] [address] Jul, [facility] [place] [facility] [address] [facility] [id number] [place] [address] Jul, [facility] [place] [facility] [address] [facility] [id number], [place] [address] Jul, [facility] [place] [facility] [address] [facility] [id number], [place] [address] Jul, [facility] [place] [facility] [address] [facility] [id number], [place] [address] Jul, [facility] [place] [facility] [address] [facility] [id number], [place] [address] Jul, [facility] [place] [facility] [address] [id number], [place] [address] Jul, [facility] [place] [facility] [address] [facility] [id number], [place] [address] Jun, [facility] [place] [facility] [address] [facility] [id number], [place] [address] Jun, [facility] [place] [facility] [address] [id number] [place] [address] Jun, [facility] [place] [facility] [address] [id number] [place] [address] Jun, [facility] [place] [facility] [address] [id number] [place] [address] 9666 Jun, [facility] [place] [facility] [address] [id number] [place] [address]- [address] Jun, [facility] [place] [facility] [address] [id number] [place] [address]70 Jun, [facility] [place] [facility] [address] [id number] [place] [address] Apr, [facility] [place] [facility] [address] [id number] [place] [address] Apr, [facility] [place] [facility] [address] [id number] [place] [address] Mar, [facility] [place] [facility] [address] [id number] [place] [address]147 Feb, [facility] [place] [facility] [address] [id number] [place] [address] Feb, [facility] [place] [facility] [address] [id number] [place] [address] January, [facility] [place] [facility] [address] [id number] [place] [address]656 January, [facility] [place] [facility] [address] [id number] [place] [address] Dec, [facility] [place] [facility] [address] [id number] [place] [address]- [address] Dec, [facility] [place] [facility] [address] [id number] [place] [address] Nov, [facility] [place] [facility] [address] [id number] [place] [address]- 6[address] Oct, [facility] [place] [facility] [address] [id number] [place] [address] 1274 Oct, [facility] [place] [facility] [address] [id number] [place] [address]- [address]34 Oct, [facility] [place] [facility] [address] [facility] [id number] [place] [address]- 16[address] Sep, [facility] [place] [facility] [address] [id number] [place] [address]- 2557 Aug, [facility] [place] [facility] [address] [id number] [place] [address]- 6362 Aug, [facility] [place] [facility] [address] [id number] [place] [address]- 0711 Aug, [facility] [place] [facility] [address] [id number] [place] [address]- 7692 Aug, [facility] [place] [facility] [address] [id number] [place] [address]- 4670 Aug, [facility] [place] [facility] [address] [id number] [place] [address] Jul, [facility] [place] [facility] [address] [id number] [place] [address]- 0[address] Jul, [facility] [place] [facility] [address] [id number] [place] [address]- 6267 Jul, [facility] [place] [facility] [address] [id number], [place] [address] Jul, [facility] [place] [facility] [address] [id number] [place] [address]- 1727 Aug, [facility] [place] [facility] [address] [id number] [place] [address]- 4655 Aug, [facility] [place] [facility] [address] [facility] [id number] [place] [address]- 6483 Aug, [facility] [place] [facility] [address] [id number] [id number] Jun, [facility] [id number], [place] [address] Jun, [facility] [id number], [place] [address]- [address] Jun, [facility] [id number], [place] [address]- 1602 Jun, [facility] [id number], [place] [address]- [address] Jun, [facility] [id number] [place] [address]- [address] Jul, [facility] [id number], [place] [address]- [address] Jul, [facility] [address] [address] Jun, [facility] [address] [id number], [place] [address] Jun, IMMUNIZATIONS No Known Immunizations SOCIAL HISTORY Never Assessed REASON FOR VISIT Controlled Med Refill 09/21/17 PLAN OF CARE VITAL SIGNS MEDICATIONS Medication Instructions Dosage Frequency Start Date End Date Duration Status Hydrocodone-Acetaminophen 7.5-325 MG Orally 3 times a day 1 tablet as needed for pain 8h Sep, 28 days Active RESULTS No Results PROCEDURES [...]
--- OUTSIDE RECORDS SUMMARY | 2018-05-26 08:27 | XMS REPORT ---
Author Author LASHAY BLACK Organization [facility] Address [address] [place] [address] Care Team Providers Care Chief Radiology Name Role Phone LASHAY BLACK Unavailable PROBLEMS Type Condition ICD9-CM Code CPQ08-IB Code Onset Dates Condition Status SNOMED Code Problem Irritable bowel syndrome with diarrhea K58.0 Active 202079927 Problem Venous vascular malformations Q27.9 Active 352545437 Problem Chronic obstructive pulmonary disease, unspecified COPD type J44.9 Active 51072308 Problem Primary insomnia F51.01 Active 8166958 Problem Migraine without aura and without status migrainosus, not intractable G43.009 Active 268448498 Problem 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 217644954 Problem Hypercholesterolemia E78.00 Active 28796813 Problem Post concussion syndrome F07.81 Active 25034599 Problem Other headache syndrome G44.89 Active 595686156 Problem Unspecified asthma, uncomplicated J45.909 Active 208309929 Problem Cervicalgia M54.2 Active 07184308 Problem Other chronic pain G89.29 Active 16128857 Problem Hypertension I10 Active 36623966 Problem Idiopathic sleep related nonobstructive alveolar 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 Active 58770463 Problem Anxiety F41.9 Active 95856806 Problem Obstructive sleep apnea G47.33 Active 63486923 ALLERGIES No Information ENCOUNTERS Encounter Location Date Diagnosis [facility] [address] [address] January, [facility] [id number] [place] [address] 73491- 4481 Dec, Drug-induced constipation K59.03 ; Fatigue, unspecified type R53.83 ; Forgetfulness R68.89 ; Other chronic pain G89.29 and Primary insomnia F51.01 [facility] [id number] [place] [address] 58718- 4871 Nov, [facility] [id number] [place] [address] 96410- 5306 Oct, Other chronic pain G89.29 [facility] [id number] [place] [address] 98530- 5632 Sep, Other chronic pain G89.29 [facility] [id number] [place] [address] 22572- 1593 Sep, Other chronic pain G89.29 [facility] [id number] [place] [address] 49997- 9712 Aug, Other chronic pain G89.29 [place] [address] 17410- 8106 Jul, Other chronic pain G89.29 ; Encounter for immunization Z23 and Side effects of treatment, initial encounter T88.9XXA [place] [address] [address]17- 8753 Jul, Other chronic pain G89.29 [facility] [id number] [place] [address] 12265 -0192 Jul, [facility] [id number] [place] [address] 79690- 8922 Jul, Encounter for immunization Z23 [facility] [id number] [place] [address] 20622- 6361 Jun, Hypertension I10 ; Other headache syndrome G44.89 ; Post concussion syndrome F07.81 and Other chronic pain G89.29 [facility] [id number] [place] [address] 07113- 0120 May, [place] [address] 35359- 5630 May, Migraine without aura and without status migrainosus, not intractable G43.009 [facility] [id number] [place] [address] 15555- 2589 May, 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 [facility] [address] [place] [address] 14102- 0308 May, Other chronic pain G89.29 [facility] [id number] [place] [address] 08839- 6571 Apr, Chronic obstructive pulmonary disease, unspecified COPD type J44.9 [facility] [id number] [place] [address] 28527- 8515 Apr, Chronic obstructive pulmonary disease, unspecified COPD type J44.9 [facility] [id number] [place] [address] 40608- 7018 Apr, Other chronic pain G89.29 ; Irritable bowel syndrome with diarrhea K58.0 and Hypercholesterolemia E78.00 [place] [id number] [place] [address] 31993- 3430 Apr, Other chronic pain G89.29 [facility] [id number] [place] [address] 74877- 5531 Mar, Other chronic pain G89.29 [facility] [id number] [place] [address] 59774- 7828 Feb, 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 [place] [address] [address] 1092 Feb, Other chronic pain G89.29 [facility] [address] [place] [address] 64612- 7130 Feb, [facility] [id number] [place] [address] 42252- 3401 January, [facility] [id number] [place] [address] 78249- 4247 January, Other chronic pain G89.29 [facility] [id number] [place] [address] 99710- 2303 January, [place] [id number] [place] [address] 55803- 6873 January, [facility] [id number] [place] [address] 31293- 8858 January, Other chronic pain G89.29 ; Irritable bowel syndrome with diarrhea K58.0 and Hypercholesterolemia E78.00 [facility] [id number] [place] [address] 13008- 7129 January, Other chronic pain G89.29 ; Hypertension I10 ; Irritable bowel syndrome with diarrhea K58.0 ; Chronic obstructive pulmonary disease, unspecified COPD type J44.9 and Venous vascular malformations Q27.9 [facility] [id number] [place] [address] 59134 -6822 January, Acute otitis externa of right ear, unspecified type H60.501 [facility] [id number] [place] [address] 31974- 0861 Dec, Other chronic pain G89.29 [facility] [id number] [place] [address] 10780- 7941 Dec, Hypertension I10 [facility] [id number] [place] [address] 35743- 6765 Nov, Other chronic pain G89.29 [facility] [id number] [place] [address] 07524- 4807 Oct, Other chronic pain G89.29 [facility] [id number] [place] [address] 35507- 2778 Sep, Other chronic pain G89.29 [facility] [id number] [place] [address] 03867- 3857 Sep, Hypertension I10 [facility] [id number] [place] [address] 58799- 0110 Sep, Other chronic pain G89.29 [facility] [id number] [place] [address] 44671- 3260 Aug, Arthralgia, unspecified joint M25.50 ; Other chronic pain G89.29 ; Obstructive sleep apnea G47.33 and Idiopathic sleep related nonobstructive alveolar 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 [place] [id number] [place] [address] 86862- 0620 Aug, [place] [address] 08989- 0977 Aug, Other chronic pain G89.29 [place] [address] 22537- 9916 Jul, Chronic obstructive pulmonary disease, unspecified COPD type J44.9 and Diarrhea, unspecified type R19.7 [place] [address] 35978- 0611 Jul, Other chronic pain G89.29 [place] [address] 70782- 9772 Jul, Skin tags, multiple acquired L91.8 [place] [address] 31727- 2304 Jun, [place] [address] 99355- 5353 Jun, Hypertension I10 [place] [address] 84482- 7479 May, Mouth pain K13.79 and Other chronic pain G89.29 [place] [id number] [place] [address] 74298- 3929 May, [place] [address] 25430- 0714 May, [place] [address] 21526- 9677 May, Pain in right knee M25.561 and Other chronic pain G89.29 [place] [address] 17232- 4230 Apr, Cervicalgia M54.2 [place] [address] 84506- 3136 Mar, Cervicalgia M54.2 [place] [address] 83411- 6937 27 Feb, 2016 Fever, unspecified fever cause R50.9 and Arthralgia, unspecified joint M25.50 [place] [address] 91602- 4585 15 Feb, 2016 Hypertension I10 and Chronic pain syndrome G89.4 [place] [address] 41185- 4350 08 Feb, 2016 Cervicalgia M54.2 [place] [address] 46113- 0895 January, [place] [address] 65133- 6412 Dec, Chest pain R07.9 ; Family history of early CAD Z82.49 ; Hypertension I10 ; Fatigue R53.83 and History of IBS Z87.19 [place] [address] 02919- 6449 Dec, [place] [address] 76626- 1371 Nov, Allergic rhinitis J30.9 [place] [address] 78589- 7686 Nov, [place] [address] 28544- 7219 Nov, Hypertension I10 and Anxiety F41.9 [place] [address] 00902- 7307 Nov, [place] [address] 49009- 1166 Oct, [place] [id number] [place] [address] 31376- 3567 10 Oct, 2015 Chest pain R07.9 ; Family history of early CAD Z82.49 ; Hypertension I10 ; Fatigue R53.83 and History of IBS Z87.19 [place] [id number] [place] [address] 03095- 1576 Oct, [place] [address] 90744- 0388 Oct, Chest pain, unspecified R07.9 [place] [id number] [place] [address] 85136- 8890 Oct, Chest pain, unspecified R07.9 ; Irritable bowel syndrome with diarrhea K58.0 ; Fatigue R53.83 and Degenerative disc disease, cervical M50.30 [place] [id number] [place] [address] 36766- 0441 Oct, [place] [id number] [place] [address] 27517- 6628 Oct, [place] [id number] [place] [address] 72687- 6827 Sep, [place] [id number] [place] [address] 93078- 8109 Sep, [place] [id number] [place] [address] 38863- 7987 Aug, [facility] [id number] [place] [address] 40542- 7763 Aug, [place] [id number] [place] [address] 83658- 9452 Aug, [facility] [id number] [place] [address] 59139- 1002 Jul, Cervicalgia M54.2 ; Headache R51 ; Post-traumatic headache, unspecified, not intractable G44.309 and Unspecified intracranial injury without loss of consciousness, sequela S06.9X0S [facility] [place] [facility] [id number] [address]- 8708 Jul, [facility] [place] [facility] [address] [address]- 6642 Jul, [facility] [place] [facility] [address] [place] [address]- 7725 Jun, [facility] [place] [facility] [id number] [place] [address] 63505- 8314 Jun, Encounter for immunization Z23 [facility] [place] [facility] [id number] [place] [address], [place] [address]- 2384 Jun, [facility] [place] [facility] [id number] [place] [address] 76798- 4051 May, [facility] [place] [id number] [place] [address] 15860- 9948 May, [facility] [place] [facility] [id number] [address]- 3102 Apr, [facility] [place] [facility] [address] [place] [address], [place] [address]- 3497 Apr, [facility] [place] [facility] [address], [place] [address]- 0461 Apr, [facility] [place] [facility] [address], [place] [address]- 0403 Mar, [facility] [place] [facility] [address], [place] [address]- 1054 Mar, [facility] [place] [facility] [address], [place] [address]- 2828 Mar, [facility] [place] [facility] [address], [place] [address]- 6648 Feb, [facility] [place] [facility] [address], [place] [address]- 4902 Feb, [facility] [place] [facility] [address] [id number] [place] [address]- 8389 January, [facility] [place] [facility] [address] [id number] [place] [address]- 8088 January, [facility] [place] [facility] [address] [id number] [place] [address]- 5912 Dec, [facility] [place] [facility] [address] [id number] [place] [address]- 7989 Dec, [facility] [place] [facility] [address] [id number] [place] [address]- 1009 Nov, [facility] [place] [facility] [address] [id number] [place] [address]- 6550 Nov, [facility] [place] [facility] [address] [id number] [place] [address]- 2372 Nov, [facility] [place] [facility] [address] [id number] [place] [address]- 8730 Nov, [facility] [place] [facility] [address] [id number] [place] [address]- 8273 Nov, [facility] [place] [facility] [address] [id number] [place] [address]- 6745 Nov, [facility] [place] [facility] [address] [id number] [place] [address]- 3253 Nov, [facility] [place] [facility] [address] [id number] [place] [address]- 7925 Nov, [facility] [place] [facility] [address] [id number] [place] [address]- 9383 Nov, [facility] [place] [facility] [address] [id number] [place] [address]- 6101 Nov, [facility] [place] [facility] [address] [id number] [place] [address]- 8906 Nov, [facility] [place] [facility] [address] [id number] [place] [address]- 9208 Nov, [facility] [place] [facility] [address] [id number] [place] [address]- 3071 Nov, [facility] [place] [facility] [address] [id number] [place] [address]- 5082 Nov, [facility] [place] [facility] [address] [id number] [place] [address]- 5045 Oct, [facility] [place] [facility] [address] [id number] [place] [address]- 7592 Oct, [facility] [place] [facility] [address] [id number] [place] [address]- 6715 Oct, [facility] [place] [facility] [address] [id number] [place] [address]- 2376 Oct, [facility] [place] [facility] [address] [id number] [place] [address]- 3733 Sep, [facility] [place] [facility] [address] [id number] [place] [address]- 1400 Sep, [facility] [place] [facility] [address] [id number] [place] [address]- 8730 Sep, [facility] [place] [facility] [address] [id number] [place] [address]- 9199 Sep, [facility] [place] [facility] [address] [id number] [place] [address]- 6082 Sep, [facility] [place] [facility] [address] [id number] [place] [address]- 0945 Sep, [facility] [place] [facility] [address] [id number] [place] [address]- 3783 Sep, [facility] [place] [facility] [address] [id number] [place] [address]- 8359 Sep, [facility] [place] [facility] [address] [id number] [place] [address]- 6011 Aug, [facility] [place] [facility] [address] [id number] [place] [address]- 6947 Aug, [facility] [place] [address] [id number] [place] [address]- 5976 Aug, [facility] [place] [facility] [address] [id number] [place] [address]- 6937 Aug, [facility] [place] [facility] [address] [id number] [place] 3105 Aug, [facility] [place] [facility] [address] [id number] [place] [address]- 2765 Aug, [facility] [place] [facility] [address] [id number] [place] [address]- 1416 Aug, [facility] [place] [facility] [address] [id number] [place] [address]- 9725 Aug, [facility] [place] [facility] [address] [id number] [place] [address]- 0311 Jul, [facility] [place] [facility] [address] [id number] [place] [address]- 5827 Jul, [facility] [place] [facility] [address] [id number] [place] [address]- 7927 Jul, [facility] [place] [facility] [address] [id number] [place] [address]- 8380 Jul, [facility] [place] [facility] [address] [id number] [place] [address]- 4617 Jul, [facility] [place] [facility] [address] [id number] [place] [address]- 8444 Jul, [facility] [place] [facility] [address] [id number] [place] 3569 Jul, [facility] [place] [facility] [address] [id number] [place] [address]- 0429 Jul, [facility] [place] [facility] [address] [id number] [place] [address]- 7843 Jul, [facility] [place] [facility] [address] [id number] [place] [address]- 2170 Jul, [facility] [place] [facility] [address] [id number] [place] [address]- 8343 Jul, [facility] [place] [facility] [address] [id number] [place] [address]- 8717 Jun, [facility] [place] [facility] [address] [id number] [place] [address]- 9932 Jun, [facility] [place] [facility] [address] [id number] [place] 3620 Jun, [facility] [place] [facility] [address] [id number] [place] [address]- 8717 Jun, [facility] [place] [facility] [address] [id number] [place] [address]- 0855 Jun, [facility] [place] [facility] [address] [id number] [place] [address]- 4058 Jun, [facility] [place] [facility] [address] [id number] [place] [address]- 2420 Jun, [facility] [place] [facility] [address] [id number] [place] [address]- 3011 Jun, [facility] [place] [facility] [address] [id number] [address]- 2070 Jun, [facility] [place] [facility] [address] [id number], [place] [address]- 9788 Jun, [facility] [place] [facility] [address] [id number] [place] [address]- 2185 Jun, [facility] [place] [facility] [address] [id number] [place] [address]- 4073 Jun, [facility] [place] [facility] [address] [id number], [place] [address]- 1357 Jun, [facility] [place] [facility] [address] [id number], [place] [address]- 5405 Jun, [facility] [place] [facility] [address] [id number] [place] [address]- 5844 Jun, [facility] [place] [facility] [address] [id number] [place] [address]- 7147 Jun, [facility] [place] [facility] [address] [id number] [place] [address]- 5388 Jun, [facility] [place] [facility] [address] [id number] [place] [address]- 1782 25 May, 2014 [facility] [place] [facility] [address] [id number] [place] [address]- 0828 11 May, 2014 [facility] [place] [facility] [address] [id number] [place] [address]- 3168 11 May, 2014 [facility] [place] [facility] [address] [id number] [place] [address]- 6793 04 May, 2014 [facility] [place] [facility] [address] [id number] [place] [address]- 8832 04 May, 2014 [facility] [place] [facility] [address] [id number] [place] [address]- 1068 03 May, 2014 [facility] [place] [facility] [address] [id number] [place] [address]- 2857 03 May, 2014 [facility] [place] [facility] [address] [id number] [place] [address]- 1759 Apr, [facility] [place] [facility] [address] [id number] [place] [address]- 7644 Apr, [facility] [place] [facility] [address] [id number] [place] [address]- 0715 15 Apr, 2014 [facility] [place] [facility] [address] [id number] [place] [address]- 5273 15 Apr, 2014 [facility] [place] [facility] [address] [id number] [place] [address]- 2298 14 Apr, 2014 [facility] [place] [facility] [address] [id number] [place] [address]- 7721 Apr, [facility] [place] [facility] [address] [id number] [place] [address]- 5455 Apr, [facility] [place] [facility] [address] [id number] [place] [address]- 2229 Apr, [facility] [place] [facility] [address] [id number] [place] [address]- 8858 Apr, [facility] [place] [facility] [address] [id number] [place] [address]- 4483 Apr, [facility] [place] [facility] [address] [id number] [place] [address]- 9683 Apr, [facility] [place] [facility] [address] [id number] [place] [address]- 5126 Mar, [facility] [place] [facility] [address] [id number] [place] [address]- 6459 Mar, [facility] [place] [facility] [address] [id number] [place] [address]- 7338 Mar, [facility] [place] [facility] [address] [id number] [place] [address] Mar, [facility] [place] [facility] [address] [id number] [place] [address] Feb, [facility] [place] [facility] [address] [id number] [place] [address] Feb, [facility] [place] [facility] [address] [id number] [place] [address] Feb, [facility] [place] [facility] [address] [id number] [place] [address] Feb, [facility] [place] [facility] [address] [id number] [place] [address] Feb, [facility] [place] [facility] [address] [id number] [place] [address] Feb, [facility] [place] [facility] [address] [id number] [place] [address] Feb, [facility] [place] [facility] [address] [id number] [place] [address] Feb, [facility] [place] [facility] [address] [id number] [place] [address] January, [facility] [place] [facility] [address] [id number] [place] [address] January, [facility] [place] [facility] [address] [id number] [place] [address] January, [facility] [place] [facility] [address] [id number] [place] [address] January, [facility] [place] [facility] [address] [id number] [place] [address] Dec, [facility] [place] [facility] [address] [id number] [place] [address] Dec, [facility] [place] [facility] [address] [id number] [place] [address] Dec, [facility] [place] [facility] [address] [id number] [place] [address] Dec, [facility] [place] [facility] [address] [id number] [place] [address] Dec, [facility] [place] [facility] [address] [id number] [place] [address] Dec, [facility] [place] [facility] [address] [id number] [place] [address] Dec, [facility] [place] [facility] [address] [id number] [place] [address] Dec, [facility] [place] [facility] [address] [id number] [place] [address] Dec, [facility] [place] [facility] [address] [id number] [place] [address] Dec, [facility] [place] [facility] [address] [id number] [place] [address] Nov, [facility] [place] [facility] [address] [id number] [place] [address] Nov, [facility] [place] [facility] [address] [id number] [place] [address] Nov, [facility] [place] [facility] [address] [id number] [place] [address] Nov, [facility] [place] [facility] [address] [id number] [place] [address] Nov, [facility] [place] [facility] [address] [id number] [place] [address] Oct, [facility] [place] [facility] [address] [id number] [place] [address] Oct, [facility] [place] [facility] [address] [id number] [place] [address] Sep, [facility] [place] [facility] [address] [id number] [place] [address]- [address] Sep, [facility] [place] [facility] [address] [id number] [place] [address]- 9610 Sep, [facility] [place] [facility] [address] [id number] [place] [address] Sep, [facility] [place] [facility] [address] [id number] [place] [address] Aug, [facility] [place] [facility] [address] [id number] [place] [address] Aug, [facility] [place] [facility] [address] [id number] [place] [address]- [address] Aug, [facility] [place] [facility] [address] [id number] [place] [address] Aug, [facility] [place] [facility] [address] [id number] [place] [address] Aug, [facility] [place] [facility] [address] [id number] [place] [address]- [address] Aug, [facility] [place] [facility] [address] [id number] [place] [address] Aug, [facility] [place] [facility] [address] [id number] [place] [address] Aug, [facility] [address] [id number] [place] [address] Jul, [facility] [place] [facility] [address] [id number] [place] [address] Jul, [facility] [address] [id number] [place] [address] Jul, [facility] [place] [facility] [address] [id number] [place] [address]- [address] Jul, [facility] [place] [facility] [address] [id number] [place] [address] Jun, [facility] [place] [facility] [address] [id number] [place] [address] Jun, [facility] [place] [facility] [address] [id number] [place] [address]- [address] Jun, [facility] [place] [facility] [address] [id number] [address] Jun, [facility] [place] [facility] [address] [id number] [place] [address]- [address] Jun, [facility] [place] [facility] [address] [id number] [place] [address] May, [facility] [place] [facility] [address] [id number] [address] Apr, [facility] [facility] [address] [id number], [place] [address] Apr, [facility] [address] [id number] [place] [address] Mar, [facility] [address] [id number] [place] [address] Feb, [facility] [address] [id number] [place] [address] Feb, [facility] [address] [id number] [place] [address] January, [facility] [address] [id number] [place] [address] January, [facility] [address] [id number] [place] [address] January, [facility] [address] [facility] [id number] [place] [address] Nov, [facility] [address] [id number] [place] [address] Oct, [facility] [address] [id number] [place] [address] Oct, [facility] [address] [id number] [place] [address] Oct, [facility] [address] [id number] [place] [address] Sep, [facility] [address] [id number], [place] [address] Sep, [facility] [address] [id number] [place] [address] Aug, [facility] [facility] [address] [id number] [place] [address] Aug, [facility] [address] [id number] [place] [address] Jul, [facility] [address] [id number] [place] [address] Jul, [facility] [place] [facility] [address] [id number] [place] [address] Jul, [facility] [address] [id number] [place] [address] Jul, [facility] [address] [id number] [place] [address] 269[address] Jul, [facility] [address] [id number] [place] [address] Jul, [facility] [address] [id number] [place] [address] Jul, [facility] [address] [id number] [place] [address] Jul, [facility] [address] [id number] [place] [address] Jul, [facility] [address] [id number] [place] [address] Jul, [facility] [address] [id number] [place] [address] Jul, [facility] [address] [id number] [place] [address] Jul, [facility] [address] [id number] [place] [address] Jul, [facility] [address] [id number] [place] [address] 85[address] Jul, [facility] [address] [id number] [place] [address] Jun, [facility] [address] [id number] [place] [address] Jun, [facility] [address] [id number] [place] [address] Jun, [facility] [address] [id number] [place] [address] Jun, [facility] [address] [id number] [place] [address] Jun, [facility] [address] [id number] [place] [address] 6[address] Jun, [facility] [address] [id number] [place] [address] Jun, [facility] [address] [id number] [place] [address] 164[address] Apr, [facility] [address] [id number] [place] [address] Apr, [facility] [address] [id number] [place] [address] Mar, [facility] [address] [id number] [place] [address] Feb, [facility] [address] [id number] [place] [address] Feb, [facility] [address] [facility] [id number] [place] [address] January, [facility] [address] [id number], [place] [address] January, [facility] [address] [id number], [place] [address] Dec, [facility] [address] [id number] [place] [address] Dec, [facility] [address] [id number], [place] [address] Nov, [facility] [address] [id number] [place] [address] Oct, [facility] [address] [id number] [place] [address] 09 Oct, 2011 [facility] [address] [id number] [place] [address]- [address] 08 Oct, 2011 [facility] [address] [id number] [place] [address] Sep, [facility] [address] [id number] [place] [address]- [address]67 14 Aug, 2011 [facility] [address] [id number] [place] [address] 14 Aug, 2011 [facility] [address] [id number] [place] [address] 42[address] Aug, [facility] [address] [facility] [id number] [place] [address] 05 Aug, 2011 [facility] [address] [facility] [id number] [place] [address] Aug, [facility] [address] [id number] [place] [address] 8918 Jul, [facility] [address] [facility] [id number] [place] [address] 8425 Jul, [facility] [address] [facility] [id number] [place] [address] 9345 Jul, [facility] [address] [id number] [place] [address] 2469 Jul, [facility] [address] [id number] [place] [address] 29 Aug, 2010 [facility] [address] [id number] [place] [address] 48[address] 28 Aug, 2010 [facility] [address] [facility] [id number] [place] [address] 13 Aug, 2010 [facility] [address] [facility] [id number] [place] [address]- [address] Jun, [facility] [address] [id number], [place] [address] Jun, [facility] [address] [id number], [place] [address] Jun, [facility] [address] [id number], [place] [address] Jun, [facility] [id number], [place] [address] Jun, [facility] [id number], [place] [address] 280[address] Jul, [facility] [id number], [place] [address] Jul, [facility] [id number], [place] [address] Jun, [facility] [address] [id number], [place] [address] Jun, IMMUNIZATIONS No Known Immunizations SOCIAL HISTORY Never Assessed REASON FOR VISIT Controlled Med Refill 06/01/2017 PLAN OF CARE VITAL SIGNS MEDICATIONS Medication Instructions Dosage Frequency Start Date End Date Duration Status Hydrocodone-Acetaminophen 7.5-325 MG Orally 3 times a day 1 tablet as needed for pain 8h May, 28 days Active RESULTS No Results PROCEDURES [...]
--- OUTSIDE RECORDS SUMMARY | 2018-05-26 08:28 | XMS REPORT ---
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 Active 27796783 Problem Other chronic pain G89.29 Active 21299671 Problem Unspecified asthma, uncomplicated J45.909 Active 178207426 Problem Hypertension I10 Active 97687292 Problem Anxiety F41.9 Active 84043541 Problem Cervicalgia M54.2 Active 26077632 Problem Migraine without aura and without status migrainosus, not intractable G43.009 Active 406031492 Problem 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
--- OUTSIDE RECORDS SUMMARY | 2018-05-26 08:28 | XMS REPORT ---
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 496609590 Problem Hypercholesterolemia E78.00 Active 16534093 Problem Chronic obstructive pulmonary disease, unspecified COPD type J44.9 Active 80572208 Problem 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
--- OUTSIDE RECORDS SUMMARY | 2018-05-26 08:28 | XMS REPORT ---
Author Author LASHAY BLACK [facility] Address [address] [place] [address] Care Team Providers Care Trapeze Artist Name Role Phone LASHAY BLACK Unavailable PROBLEMS Type Condition ICD9-CM Code LLD59-JV Code Onset Dates Condition Status SNOMED Code Problem Irritable bowel syndrome with diarrhea K58.0 Active 893778054 Problem Venous vascular malformations Q27.9 Active 224207845 Problem Chronic obstructive pulmonary disease, unspecified COPD type J44.9 Active 78669865 Problem Primary insomnia F51.01 Active 4729642 Problem Migraine without aura and without status migrainosus, not intractable G43.009 Active 249556001 Problem 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 435289676 Problem Hypercholesterolemia E78.00 Active 98795000 Problem Post concussion syndrome F07.81 Active 85378699 Problem Other headache syndrome G44.89 Active 731341697 Problem Unspecified asthma, uncomplicated J45.909 Active 321434146 Problem Cervicalgia M54.2 Active 77756524 Problem Other chronic pain G89.29 Active 49242200 Problem Hypertension I10 Active 29960570 Problem Idiopathic sleep related nonobstructive alveolar 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 Active 66621381 Problem Anxiety F41.9 Active 00738410 Problem Obstructive sleep apnea G47.33 Active 97164010 ALLERGIES No Information ENCOUNTERS Encounter Location Date Diagnosis [facility] [address] [facility] [id number] [address] January, Arthralgia, unspecified joint M25.50 and Other chronic pain G89.29 [facility] [address] [id number] [address] Dec, Drug-induced constipation K59.03 ; Fatigue, unspecified type R53.83 ; Forgetfulness R68.89 ; Other chronic pain G89.29 and Primary insomnia F51.01 [facility] [id number] [place] [address] 10807- 4922 Nov, [facility] [address] [address]- 8111 Oct, Other chronic pain G89.29 [facility] [address] 81048- 2642 Sep, Other chronic pain G89.29 [facility] [address] 78457- 1079 Sep, Other chronic pain G89.29 [place] [address] 77787- 9169 Aug, Other chronic pain G89.29 [place] [address] 79493- 2789 Jul, Other chronic pain G89.29 ; Encounter for immunization Z23 and Side effects of treatment, initial encounter T88.9XXA [facility] [id number] [place] [address] 89014- 0159 Jul, Other chronic pain G89.29 [facility] [id number] [place] [address] 31745 -9799 Jul, [place] [id number] [place] [address] 75496- 4409 Jul, Encounter for immunization Z23 [facility] [address] 47060- 8899 Jun, Hypertension I10 ; Other headache syndrome G44.89 ; Post concussion syndrome F07.81 and Other chronic pain G89.29 [place] [id number] [place] [address] 63591- 7312 May, [place] [address] 28336- 0449 May, Migraine without aura and without status migrainosus, not intractable G43.009 [facility] [address]005[address] [address] 3[address] May, 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 [facility] [address] [place] [address] 22947- 5848 May, Other chronic pain G89.29 [facility] [address] [place] [address] 91136- 8073 Apr, Chronic obstructive pulmonary disease, unspecified COPD type J44.9 [facility] [id number] [place] [address] 58403- 5164 Apr, Chronic obstructive pulmonary disease, unspecified COPD type J44.9 [facility] [id number] [place] [address] 68395- 6466 Apr, Other chronic pain G89.29 ; Irritable bowel syndrome with diarrhea K58.0 and Hypercholesterolemia E78.00 [facility] [id number] [place] [address] 59080- 9516 Apr, Other chronic pain G89.29 [facility] [address] [place] [address] 22105- 6424 Mar, Other chronic pain G89.29 [facility] [address] [place] [address] 39378- 3828 Feb, 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 [facility] [address] [address] 8389 Feb, Other chronic pain G89.29 [facility] [address] [address] 6606 Feb, [facility] [id number] [place] [address] 38612- 3466 January, [facility] [address] [address] 6857 January, Other chronic pain G89.29 [facility] [id number] [place] [address] 37696- 2883 January, [facility] [id number] [place] [address] 08375- 8330 January, [facility] [id number] [place] [address] 02838- 6475 January, Other chronic pain G89.29 ; Irritable bowel syndrome with diarrhea K58.0 and Hypercholesterolemia E78.00 [facility] [id number] [place] [address] 34158- 8900 January, Other chronic pain G89.29 ; Hypertension I10 ; Irritable bowel syndrome with diarrhea K58.0 ; Chronic obstructive pulmonary disease, unspecified COPD type J44.9 and Venous vascular malformations Q27.9 [facility] [address] [place] [address] 14152 -9464 January, Acute otitis externa of right ear, unspecified type H60.501 [facility] [id number] [place] [address] 39750- 1884 Dec, Other chronic pain G89.29 [facility] [id number] [place] [address] 30821- 9020 Dec, Hypertension I10 [facility] [id number] [place] [address] 60541- 2886 Nov, Other chronic pain G89.29 [facility] [address] [place] [address] 61957- 3965 Oct, Other chronic pain G89.29 [facility] [address] [place] [address] 87499- 0787 Sep, Other chronic pain G89.29 [facility] [id number] [place] [address] 54676- 1869 Sep, Hypertension I10 [facility] [id number] [place] [address] 25304- 0692 Sep, Other chronic pain G89.29 [facility] [id number] [place] [address] 98426- 1851 Aug, Arthralgia, unspecified joint M25.50 ; Other chronic pain G89.29 ; Obstructive sleep apnea G47.33 and Idiopathic sleep related nonobstructive alveolar 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 [facility] [id number] [place] [address] 65977- 1032 Aug, [place] [id number] [place] [address] 20013- 1915 Aug, Other chronic pain G89.29 [place] [id number] [place] [address] 06244- 2338 Jul, Chronic obstructive pulmonary disease, unspecified COPD type J44.9 and Diarrhea, unspecified type R19.7 [place] [id number] [place] [address] 01609- 8940 Jul, Other chronic pain G89.29 [place] [id number] [place] [address] 58845- 2350 Jul, Skin tags, multiple acquired L91.8 [place] [id number] [place] [address] 01678- 7025 Jun, [place] [id number] [place] [address] 64608- 3712 Jun, Hypertension I10 [place] [id number] [place] [address] 40668- 4396 May, Mouth pain K13.79 and Other chronic pain G89.29 [facility] [id number] [place] [address] 71908- 5966 May, [facility] [id number] [place] [address] 66211- 4065 May, [facility] [id number] [place] [address] 26875- 3208 May, Pain in right knee M25.561 and Other chronic pain G89.29 [place] [id number] [place] [address] 11693- 5198 Apr, Cervicalgia M54.2 [place] [address] 24354- 8774 Mar, Cervicalgia M54.2 [place] [id number] [place] [address] 27255- 4768 27 Feb, 2016 Fever, unspecified fever cause R50.9 and Arthralgia, unspecified joint M25.50 [place] [address] 67396- 5340 15 Feb, 2016 Hypertension I10 and Chronic pain syndrome G89.4 [place] [address] 38091- 5467 08 Feb, 2016 Cervicalgia M54.2 [place] [address] 72924- 0076 January, [place] [id number] [place] [address] 62853- 1780 Dec, Chest pain R07.9 ; Family history of early CAD Z82.49 ; Hypertension I10 ; Fatigue R53.83 and History of IBS Z87.19 [place] [id number] [place] [address] 87938- 1640 Dec, [place] [id number] [place] [address] 45473- 9775 31 Nov, 2015 Allergic rhinitis J30.9 [place] [id number] [place] [address] 59717- 4420 14 Nov, [address] 51403- 8255 08 Nov, 2015 Hypertension I10 and Anxiety F41.9 [place] [id number] [place] [address] 63476- 7527 Nov, [place] [address] 37181- 0945 Oct, [facility] [id number] [place] [address] 15470- 0973 Oct, Chest pain R07.9 ; Family history of early CAD Z82.49 ; Hypertension I10 ; Fatigue R53.83 and History of IBS Z87.19 [facility] [id number] [place] [address] 31641- 2054 Oct, [facility] [id number] [place] [address] 29913- 7719 Oct, Chest pain, unspecified R07.9 [place] [address] 79014- 4651 Oct, Chest pain, unspecified R07.9 ; Irritable bowel syndrome with diarrhea K58.0 ; Fatigue R53.83 and Degenerative disc disease, cervical M50.30 [facility] [id number] [place] [address] 89143- 3751 Oct, [facility] [id number] [place] [address] 99527- 7976 Oct, [facility] [id number] [place] [address] 54300- 0251 Sep, [facility] [id number] [place] [address] 50419- 5889 Sep, [facility] [id number] [place] [address] 02822- 3983 Aug, [facility] [id number] [place] [address] 58106- 5379 Aug, [facility] [id number] [place] [address] 71748- 8785 Aug, [facility] [id number] [place] [address] 56752- 7146 Jul, Cervicalgia M54.2 ; Headache R51 ; Post-traumatic headache, unspecified, not intractable G44.309 and Unspecified intracranial injury without loss of consciousness, sequela S06.9X0S [facility] [address] 8769 Jul, [facility] [address] [place] 5566 Jul, [facility] [id number] [place] [address] 927087- 8242 Jun, [facility] [id number] [place] [address] 556089- 6522 Jun, Encounter for immunization Z23 [facility] [id number] [place] [address] 33460- 1030 Jun, [facility] [id number] [place] [address] 79900- 1883 May, [facility] [id number] [place] [address] 50639- 8419 May, [facility] [address] [place] [address] 42534- 7480 Apr, [facility] [id number] [place] [address] 33528- 5889 Apr, [facility] [address], [place] [address]- 7752 Apr, [facility] [address] [place] [address] 21275- 7196 Mar, [facility] [address] [address]- 1385 Mar, [facility] [address] [address]- 5500 Mar, [facility] [address] 9527 Feb, [facility] [id number] [place] [address] 89289- 4048 Feb, [facility] [place] [facility] [address] [id number] [place] [address]- 0562 January, [facility] [place] [facility] [address] [id number] [place] [address]- 3778 January, [facility] [place] [facility] [address] [id number] [place] [address]- 1602 Dec, [facility] [place] [facility] [address] [id number] [place] [address]- 2246 Dec, [facility] [place] [facility] [address] [id number] [place] [address]- 7167 Nov, [facility] [place] [facility] [address] [id number] [place] [address]- 5402 Nov, [facility] [place] [facility] [address] [id number] [place] [address]- 3268 Nov, [facility] [place] [facility] [address] [id number] [place] [address]- 4370 Nov, [facility] [place] [facility] [address] [id number] [place] [address]- 3337 Nov, [facility] [place] [facility] [address] [id number] [place] [address]- 2482 Nov, [facility] [place] [facility] [address] [id number] [place] [address]- 6139 Nov, [facility] [place] [facility] [address] [id number] [place] [address]- 6525 Nov, [facility] [place] [facility] [address] [id number] [place] [address]- 2661 Nov, [facility] [place] [facility] [address] [id number] [place] [address]- 1587 Nov, [facility] [place] [facility] [address] [id number] [place] [address]- 6967 Nov, [facility] [place] [facility] [address] [id number] [place] [address]- 5058 Nov, [facility] [place] [facility] [address] [id number] [place] [address]- 7461 Nov, [facility] [place] [facility] [address] [id number] [place] [address]- 4286 Nov, [facility] [place] [facility] [address] [id number] [place] [address]- 5464 Oct, [facility] [place] [facility] [address] [id number] [place] [address]- 5567 Oct, [facility] [place] [facility] [address] [id number] [place] [address]- 8625 Oct, [facility] [place] [facility] [address] [id number] [place] [address]- 3977 Oct, [facility] [place] [facility] [address] [id number] [place] [address]- 0668 Sep, [facility] [place] [facility] [address] [id number] [place] [address]- 5585 Sep, [facility] [place] [facility] [address] [id number] [place] [address]- 8897 Sep, [facility] [place] [facility] [address] [id number] [place] [address]- 9616 Sep, [facility] [place] [facility] [address] [id number] [place] [address]- 5609 Sep, [facility] [place] [facility] [address] [id number] [place] [address]- 3185 Sep, [facility] [place] [facility] [address] [id number] [place] [address]- 9751 Sep, [facility] [place] [facility] [address] [id number] [place] [address]- 6383 Sep, [facility] [place] [facility] [address] [id number] [place] [address]- 7100 Aug, [facility] [place] [facility] [address] [id number] [place]- 7949 Aug, [facility] [place] [facility] [address] [id number] [place] [address]- 2679 Aug, [facility] [place] [facility] [address] [id number] [place] 2737 Aug, [facility] [place] [facility] [address] [id number] [place] 8577 Aug, [facility] [place] [facility] [address] [id number] [place] [address]- 0771 Aug, [facility] [place] [facility] [address] [id number] [place] [address]- 7744 Aug, [facility] [place] [facility] [address] [id number] [place] [address]- 1105 Aug, [facility] [place] [facility] [address] [id number] [place] [address]- 1951 Jul, [facility] [place] [facility] [address] [id number] [place] [address]- 1441 Jul, [facility] [place] [facility] [address] [id number] [place] [address]- 3913 Jul, [facility] [place] [facility] [address] [id number] [address]- 0951 Jul, [facility] [place] [facility] [address] [id number], [place] [address]- 3708 Jul, [facility] [place] [facility] [address] [id number] [place] [address]- 9299 Jul, [facility] [place] [facility] [address] [id number] [place] [address]- 5535 Jul, [facility] [place] [facility] [address] [id number] [place] 5117 Jul, [facility] [place] [facility] [address] [id number] [place] [address]- 2148 Jul, [facility] [place] [facility] [address] [id number] [place] 3579 Jul, [facility] [place] [facility] [address] [id number] [place] 3113 Jul, [facility] [place] [facility] [address] [id number] [place] 4589 Jun, [facility] [place] [facility] [address] [id number] [place] [address]- 1054 Jun, [facility] [place] [facility] [address] [id number] [place] [address]- 7004 Jun, [facility] [place] [facility] [address] [id number] [place] [address]- 7607 Jun, [facility] [place] [facility] [address] [id number] [place] [address]- 5554 Jun, [facility] [place] [facility] [address] [id number] [place] [address]- 8216 Jun, [facility] [place] [facility] [address] [id number] [place] [address]- 2932 Jun, [facility] [place] [facility] [address] [id number] [place] [address]- 8466 Jun, [facility] [place] [facility] [address] [id number] [place] [address]- 8910 Jun, [facility] [place] [facility] [address] [id number] [place] [address]- 3677 24 Jun, 2014 [facility] [place] [facility] [address] [id number] [place] [address]- 7013 17 Jun, 2014 [facility] [place] [facility] [address] [id number] [place] [address]- 7667 16 Jun, 2013 [facility] [place] [facility] [address] [id number] [place] 3149 16 Jun, 2014 [facility] [place] [facility] [address] [id number] [place] [address]- 1755 09 Jun, 2014 [facility] [place] [facility] [address] [id number] [place] [address]- 2482 Jun, [facility] [place] [facility] [address] [id number] [place] [address]- 8525 Jun, [facility] [place] [facility] [address] [id number] [place] [address]- 3467 Jun, [facility] [place] [facility] [address] [id number] [place] [address]- 6547 25 May, 2013 [facility] [place] [facility] [address] [id number] [place] [address]- 0320 11 May, 2013 [facility] [place] [facility] [address] [id number] [place] [address]- 2676 May, 2013 [facility] [place] [facility] [address] [id number] [place] [address]- 4183 04 May, 2013 [facility] [place] [facility] [address] [id number] [place] [address]- 4816 04 May, 2014 [facility] [place] [facility] [address] [id number] [place] [address]- 5893 May, [facility] [place] [facility] [address] [id number] [place] [address]- 6202 May, [facility] [place] [facility] [address] [id number] [address]- 4952 Apr, [facility] [place] [facility] [address] [id number] [place] [address]- 9175 Apr, [facility] [place] [facility] [address] [id number] [place] [address]- 9528 Apr, [facility] [place] [facility] [address] [id number] [place] [address]- 0450 Apr, [facility] [place] [facility] [address] [id number] [place] [address]- 5551 Apr, [facility] [place] [facility] [address] [id number] [place] [address]- 6221 Apr, [facility] [place] [facility] [address] [id number] [place] [address]- 7004 Apr, [facility] [place] [facility] [address] [id number] [place] [address]- 2191 Apr, [facility] [place] [facility] [address] [id number] [place] [address] Apr, [facility] [place] [facility] [address] [id number] [place] [address] Apr, [facility] [place] [facility] [address] [id number] [place] [address] Apr, [facility] [place] [facility] [address] [id number] [place] [address] Mar, [facility] [place] [facility] [address] [id number] [place] [address] Mar, [facility] [place] [facility] [address] [id number] [place] [address] Mar, [facility] [place] [facility] [address] [id number] [place] [address] Mar, [facility] [place] [facility] [address] [id number] [place] [address] Feb, [facility] [place] [facility] [address] [id number] [place] [address] Feb, [facility] [place] [facility] [address] [id number] [place] [address] Feb, [facility] [place] [facility] [address] [id number] [place] [address] Feb, [facility] [place] [facility] [address] [id number] [place] [address] Feb, [facility] [place] [facility] [address] [id number] [place] [address] Feb, [facility] [place] [facility] [address] [id number] [place] [address] Feb, [facility] [place] [facility] [address] [id number] [place] [address]- 2015 Feb, [facility] [place] [facility] [address] [id number] [place] [address] January, [facility] [place] [facility] [address] [id number] [place] [address] January, [facility] [place] [facility] [address] [id number] [place] [address] January, [facility] [place] [facility] [address] [id number] [place] [address] January, [facility] [place] [facility] [address] [id number] [place] [address] Dec, [facility] [place] [facility] [address] [id number] [place] [address] Dec, [facility] [place] [facility] [address] [id number] [place] [address] Dec, [facility] [place] [facility] [address] [id number] [place] [address] Dec, [facility] [place] [facility] [address] [id number] [place] [address] Dec, [facility] [place] [facility] [address] [id number] [place] [address] Dec, [facility] [place] [facility] [address] [id number] [place] [address]- [address] Dec, [facility] [place] [facility] [address] [id number] [place] [address] Dec, [facility] [place] [facility] [address] [id number] [place] [address] Dec, [facility] [place] [facility] [address] [id number] [place] [address] Dec, [facility] [place] [facility] [address] [id number] [place] [address]- [address] Nov, [facility] [place] [facility] [address] [id number] [place] [address] Nov, [facility] [place] [facility] [address] [id number] [place] [address]- [address] Nov, [facility] [place] [facility] [address] [id number] [place] [address]- [address] Nov, [facility] [place] [facility] [address] [id number] [place] [address]- [address] Nov, [facility] [place] [facility] [address] [id number] [place] [address] Oct, [facility] [place] [facility] [address] [id number] [place] [address]- [address] Oct, [facility] [place] [facility] [address] [id number] [place] [address] Sep, [facility] [place] [facility] [address] [id number] [place] [address] Sep, [facility] [place] [facility] [address] [id number] [place] [address]- [address] Sep, [facility] [place] [facility] [address] [id number] [address] Sep, [facility] [place] [facility] [address] [id number] [place] [address] Aug, [facility] [place] [facility] [address] [id number] [place] [address] Aug, [facility] [place] [facility] [address] [facility] [id number] [place] [address] Aug, [facility] [place] [facility] [address] [id number] [place] [address] 05 Aug, 2012 [facility] [address] [id number] [place] [address]- [address] Aug, 2012 [facility] [place] [facility] [address] [id number] [place] [address] Aug, [facility] [place] [facility] [address] [id number] [place] [address] Aug, 2012 [facility] [place] [facility] [address] [id number] [place] [address] Aug, [facility] [place] [facility] [address] [id number] [place] [address] Jul, [facility] [place] [facility] [address] [id number] [place] [address] Jul, [facility] [place] [facility] [address] [facility] [id number] [place] [address] Jul, [facility] [place] [facility] [address] [id number] [place] [address] 1138 Jul, [facility] [place] [facility] [address] [facility] [id number] [place] [address] Jun, [facility] [place] [facility] [address] [facility] [id number] [place] [address] Jun, [facility] [place] [facility] [address] [facility] [id number] [place] [address] Jun, [facility] [place] [facility] [address] [id number] [address] Jun, [facility] [place] [facility] [address] [id number] [place] [address] Jun, [facility] [place] [facility] [address] [facility] [id number] [address] May, [facility] [place] [facility] [address] [id number] [address] Apr, [facility] [place] [facility] [address] [id number] [place] [address] 8[address] Apr, [facility] [address] [id number] [place] [address] Mar, [facility] [address] [id number] [place] [address] Feb, [facility] [address] [id number] [place] [address] 58[address] Feb, [facility] [address] [id number] [place] [address] 69[address] January, [facility] [address] [id number] [place] [address] January, [facility] [address] [id number] [place] [address]36 January, [facility] [address] [id number] [place] [address]006 Nov, [facility] [address] [id number] [place] [address]- 0664 Oct, [facility] [address] [id number] [place] [address] 1386 Oct, [facility] [address] [id number] [place] [address] 2896 Oct, [facility] [address] [id number][place] [address] Sep, [facility] [address] [id number] [place] [address] Sep, [facility] [address] [id number] [place] [address] 4826 Aug, [facility] [place] [facility] [address] [id number] [place] [address] Aug, [facility] [address] [id number] [address] Jul, [facility] [place] [facility] [address] [id number] [place] [address]883 Jul, [facility] [place] [facility] [address] [id number] [place] [address]702 Jul, [facility] [place] [facility] [address] [facility] [id number] [place] [address] Jul, [facility] [place] [facility] [address] [id number] [place] [address] 8182 Jul, [facility] [place] [facility] [address] [id number] [place] [address] 18[address] Jul, [facility] [place] [facility] [address] [facility] [id number] [place] [address]150 Jul, [facility] [place] [facility] [address] [id number], [place] [address] Jul, [facility] [place] [facility] [address] [facility] [id number] [place] [address] 7261 Jul, [facility] [place] [facility] [address] [facility] [id number], [place] [address] 4[address] Jul, [facility] [place] [facility] [address] [facility] [id number][place] [address]- 69[address] Jul, [facility] [place] [facility] [address] [facility] [id number][place] [address] Jul, [facility] [place] [facility] [address] [facility] [id number][place] [address] 9[address] Jul, [facility] [place] [facility] [address] [id number] [address] Jul, [facility] [place] [facility] [address] [facility] [id number] [address] Jun, [facility] [place] [facility] [address] [facility] [id number][place] [address] 28[address] Jun, [facility] [place] [facility] [address] [id number] [place] [address] 5503 Jun, [facility] [place] [facility] [address] [id number] [place] [address]- 4263 Jun, [facility] [place] [facility] [address] [id number] [place] [address]- 1536 Jun, [facility] [place] [facility] [address] [id number] [place] [address]- 0399 Jun, [facility] [place] [facility] [address] [id number] [place] [address]- 5283 Jun, [facility] [place] [facility] [address] [id number] [place] [address]- 6018 Apr, [facility] [place] [facility] [address] [id number] [place] [address]- 5895 Apr, [facility] [place] [facility] [address] [id number] [place] [address]- 5230 Mar, [facility] [place] [facility] [address] [id number] [place] [address]- 5781 Feb, [facility] [place] [facility] [address] [id number] [place] [address]- 3352 Feb, [facility] [place] [facility] [address] [id number] [place] [address]- 0586 January, [facility] [place] [facility] [address] [id number] [place] [address]- 0556 January, [facility] [place] [facility] [address] [id number] [place] [address]- 7648 Dec, [facility] [place] [facility] [address] [id number] [place] [address]- 0936 Dec, [facility] [place] [facility] [address] [id number] [place] [address]- 2886 Nov, [facility] [place] [facility] [address] [id number] [place] [address] 1967 Oct, [facility] [place] [facility] [address] [id number] [place] [address]- 6234 Oct, [facility] [place] [facility] [address] [id number] [place] [address]- 3432 Oct, [facility] [place] [facility] [address] [facility] [id number] [place] [address]- 8481 Sep, [facility] [place] [facility] [address] [id number] [place] [address]- 2591 Aug, [facility] [place] [facility] [address] [id number] [place] [address]- 5850 Aug, [facility] [place] [facility] [address] [id number] [place] [address]- 7424 Aug, [facility] [place] [facility] [address] [id number] [place] [address]- 2518 Aug, [facility] [place] [facility] [address] [id number] [place] [address]- 1930 Aug, [facility] [place] [facility] [address] [id number] [place] [address]- 7153 Jul, [facility] [place] [facility] [address] [id number] [place] [address]- 1523 Jul, [facility] [place] [facility] [address] [id number] [place] [address]- 8228 Jul, [facility] [place] [facility] [address] [id number], [place] [address]- 4299 Jul, [facility] [place] [facility] [address] [id number] [place] [address]- 7626 Aug, [facility] [place] [facility] [address] [id number] [place] [address]- 4397 Aug, [facility] [place] [facility] [address] [facility] [id number] [place] [address]- 3280 Aug, [facility] [place] [facility] [address] [id number] [address] Jun, [facility] [id number], [place] [address]- [address] Jun, [facility] [id number], [place] [address]- 1147 Jun, [facility] [id number] [address] Jun, [facility] [id number] [address] Jun, [facility] [id number] [place] [address] 85[address]67- 6712 Jul, [facility] [address]00565100[place], [place] [address]- 9[address] Jul, [facility] [id number], [place] [address]- [address] Jun, [facility] [address] [id number], [place] [address]- 6068 Jun, IMMUNIZATIONS No Known Immunizations SOCIAL HISTORY Never Assessed REASON FOR VISIT Controlled Med Refill- 08/24/17 PLAN OF CARE VITAL SIGNS MEDICATIONS Medication Instructions Dosage Frequency Start Date End Date Duration Status Hydrocodone-Acetaminophen 7.5-325 MG Orally 3 times a day 1 tablet as needed for pain 8h Aug, 28 days Active RESULTS No Results PROCEDURES [...]
--- OUTSIDE RECORDS SUMMARY | 2018-05-26 08:28 | XMS REPORT ---
Author Author LASHAY BLACK [facility] Address [address] [place] [address] Care Team Providers Care Inspector Fuel Hose Name Role Phone LASHAY BLACK Unavailable PROBLEMS Type Condition ICD9-CM Code HAF93-AR Code Onset Dates Condition Status SNOMED Code Problem Irritable bowel syndrome with diarrhea K58.0 Active 889188822 Problem Venous vascular malformations Q27.9 Active 408593836 Problem Chronic obstructive pulmonary disease, unspecified COPD type J44.9 Active 38941718 Problem Primary insomnia F51.01 Active 8495115 Problem Migraine without aura and without status migrainosus, not intractable G43.009 Active 566619148 Problem 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 203688349 Problem Hypercholesterolemia E78.00 Active 35602795 Problem Post concussion syndrome F07.81 Active 89886579 Problem Other headache syndrome G44.89 Active 728823128 Problem Unspecified asthma, uncomplicated J45.909 Active 347896636 Problem Cervicalgia M54.2 Active 92694554 Problem Other chronic pain G89.29 Active 03141201 Problem Hypertension I10 Active 91391965 Problem Idiopathic sleep related nonobstructive alveolar 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 Active 05862035 Problem Anxiety F41.9 Active 84276749 Problem Obstructive sleep apnea G47.33 Active 00181045 ALLERGIES No Information ENCOUNTERS Encounter Location Date Diagnosis [facility] [address] [facility] [place] [id number] [address] January, Arthralgia, unspecified joint M25.50 and Other chronic pain G89.29 [facility] [address] [id number] [address] Dec, Drug-induced constipation K59.03 ; Fatigue, unspecified type R53.83 ; Forgetfulness R68.89 ; Other chronic pain G89.29 and Primary insomnia F51.01 [facility] [id number] [place] [address] 18556- 2103 Nov, [facility] [address] [address]- 4006 Oct, Other chronic pain G89.29 [facility] [address] [address]46- 5678 Sep, Other chronic pain G89.29 [facility] [address] 29626- 0799 Sep, Other chronic pain G89.29 [place] [address] [address]35- 1663 Aug, Other chronic pain G89.29 [place] [address] 96413- 0142 Jul, Other chronic pain G89.29 ; Encounter for immunization Z23 and Side effects of treatment, initial encounter T88.9XXA [facility] [id number] [place] [address] 62124- 8441 Jul, Other chronic pain G89.29 [facility] [id number] [place] [address] 35367 -4649 Jul, [place] [id number] [place] [address] 02206- 5466 Jul, Encounter for immunization Z23 [facility] [address] 30450- 3932 Jun, Hypertension I10 ; Other headache syndrome G44.89 ; Post concussion syndrome F07.81 and Other chronic pain G89.29 [place] [id number] [place] [address] 08834- 1310 May, [place] [address] 70944- 9729 May, Migraine without aura and without status migrainosus, not intractable G43.009 [facility] [address] [address] 8[address] May, 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 [facility] [address] [place] [address] 63058- 8687 May, Other chronic pain G89.29 [facility] [address] [place] [address] 29784- 7465 Apr, Chronic obstructive pulmonary disease, unspecified COPD type J44.9 [facility] [id number] [place] [address] 61607- 5235 Apr, Chronic obstructive pulmonary disease, unspecified COPD type J44.9 [facility] [id number] [place] [address] 37960- 9379 Apr, Other chronic pain G89.29 ; Irritable bowel syndrome with diarrhea K58.0 and Hypercholesterolemia E78.00 [facility] [id number] [place] [address] 70705- 1346 Apr, Other chronic pain G89.29 [facility] [address] [place] [address] 83919- 1809 Mar, Other chronic pain G89.29 [facility] [id number] [place] [address] 82150- 0325 Feb, 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 [facility] [address] [address] 3740 Feb, Other chronic pain G89.29 [facility] [address] [address] 2408 Feb, [facility] [id number] [place] [address] 43851- 5924 January, [facility] [address] [address] 9869 January, Other chronic pain G89.29 [facility] [id number] [place] [address] 89131- 2996 January, [facility] [id number] [place] [address] 71032- 6494 January, [facility] [id number] [place] [address] 61958- 7363 January, Other chronic pain G89.29 ; Irritable bowel syndrome with diarrhea K58.0 and Hypercholesterolemia E78.00 [facility] [id number] [place] [address] 83576- 6511 January, Other chronic pain G89.29 ; Hypertension I10 ; Irritable bowel syndrome with diarrhea K58.0 ; Chronic obstructive pulmonary disease, unspecified COPD type J44.9 and Venous vascular malformations Q27.9 [facility] [address] [place] [address] 63925 -5221 January, Acute otitis externa of right ear, unspecified type H60.501 [facility] [id number] [place] [address] 75535- 1813 Dec, Other chronic pain G89.29 [facility] [id number] [place] [address] 42081- 9094 Dec, Hypertension I10 [facility] [id number] [place] [address] 98088- 7792 Nov, Other chronic pain G89.29 [facility] [address] [place] [address] 07671- 9143 Oct, Other chronic pain G89.29 [facility] [address] [place] [address] 77381- 8886 Sep, Other chronic pain G89.29 [facility] [id number] [place] [address] 57445- 8511 Sep, Hypertension I10 [facility] [id number] [place] [address] 66090- 8580 Sep, Other chronic pain G89.29 [facility] [id number] [place] [address] 82167- 0489 Aug, Arthralgia, unspecified joint M25.50 ; Other chronic pain G89.29 ; Obstructive sleep apnea G47.33 and Idiopathic sleep related nonobstructive alveolar 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 [facility] [id number] [place] [address] 05602- 3232 Aug, [place] [id number] [place] [address] 36254- 8095 Aug, Other chronic pain G89.29 [place] [id number] [place] [address] 61523- 2280 Jul, Chronic obstructive pulmonary disease, unspecified COPD type J44.9 and Diarrhea, unspecified type R19.7 [place] [id number] [place] [address] 67805- 1596 Jul, Other chronic pain G89.29 [place] [id number] [place] [address] 37904- 1342 Jul, Skin tags, multiple acquired L91.8 [place] [id number] [place] [address] 68774- 2035 Jun, [place] [id number] [place] [address] 91485- 2224 Jun, Hypertension I10 [place] [id number] [place] [address] 17373- 0079 May, Mouth pain K13.79 and Other chronic pain G89.29 [facility] [id number] [place] [address] 28805- 0272 May, [facility] [id number] [place] [address] 73227- 5073 May, [facility] [id number] [place] [address] 32138- 9197 May, Pain in right knee M25.561 and Other chronic pain G89.29 [place] [id number] [place] [address] 53388- 0807 Apr, Cervicalgia M54.2 [place] [address] 84800- 2608 Mar, Cervicalgia M54.2 [place] [id number] [place] [address] 26183- 4590 27 Feb, 2016 Fever, unspecified fever cause R50.9 and Arthralgia, unspecified joint M25.50 [place] [address] 68718- 8310 15 Feb, 2016 Hypertension I10 and Chronic pain syndrome G89.4 [place] [address] 18125- 9524 08 Feb, 2016 Cervicalgia M54.2 [place] [address] 99618- 3880 January, [place] [id number] [place] [address] 00650- 3263 Dec, Chest pain R07.9 ; Family history of early CAD Z82.49 ; Hypertension I10 ; Fatigue R53.83 and History of IBS Z87.19 [place] [id number] [place] [address] 42511- 4270 Dec, [place] [id number] [place] [address] 28080- 1511 31 Nov, 2015 Allergic rhinitis J30.9 [place] [id number] [place] [address] 71069- 6172 14 Nov, [address] 19384- 4865 08 Nov, 2015 Hypertension I10 and Anxiety F41.9 [place] [id number] [place] [address] 18376- 5370 Nov, [place] [address] 21642- 4931 Oct, [facility] [id number] [place] [address] 15262- 9893 Oct, Chest pain R07.9 ; Family history of early CAD Z82.49 ; Hypertension I10 ; Fatigue R53.83 and History of IBS Z87.19 [facility] [id number] [place] [address] 12558- 2631 Oct, [facility] [id number] [place] [address] 05293- 6780 Oct, Chest pain, unspecified R07.9 [place] [address] 92818- 9194 Oct, Chest pain, unspecified R07.9 ; Irritable bowel syndrome with diarrhea K58.0 ; Fatigue R53.83 and Degenerative disc disease, cervical M50.30 [facility] [id number] [place] [address] 03946- 5919 Oct, [facility] [id number] [place] [address] 95253- 2030 Oct, [facility] [id number] [place] [address] 82542- 3872 Sep, [facility] [id number] [place] [address] 33675- 6311 Sep, [facility] [id number] [place] [address] 37338- 5624 Aug, [facility] [id number] [place] [address] 85404- 0904 Aug, [facility] [id number] [place] [address] 00153- 9255 Aug, [facility] [id number] [place] [address] 92455- 8169 Jul, Cervicalgia M54.2 ; Headache R51 ; Post-traumatic headache, unspecified, not intractable G44.309 and Unspecified intracranial injury without loss of consciousness, sequela S06.9X0S [facility] [address] 3029 Jul, [facility] [id number] 8015 Jul, [facility] [id number] [place] [address] 925750- 8448 Jun, [facility] [id number] [place] [address] 732089- 2473 Jun, Encounter for immunization Z23 [facility] [id number] [place] [address] 37954- 7997 Jun, [facility] [id number] [place] [address] 18806- 9386 May, [facility] [id number] [place] [address] 71097- 0702 May, [facility] [address] [place] [address] 82762- 8158 Apr, [facility] [id number] [place] [address] 93307- 8680 Apr, [facility] [address] [address]- 4988 Apr, [facility] [address] [place] [address] 75401- 1413 Mar, [facility] [address] [address]- 4680 Mar, [facility] [id number] [address]- 1464 Mar, [facility] [address] 9928 Feb, [facility] [id number] [place] [address] 65427- 3102 Feb, [facility] [place] [facility] [address] [id number] [place] [address]- 5835 January, [facility] [place] [facility] [address] [id number] [place] [address]- 5752 January, [facility] [place] [facility] [address] [id number] [place] [address]- 8915 Dec, [facility] [place] [facility] [address] [id number] [place] [address]- 5362 Dec, [facility] [place] [facility] [address] [id number] [place] [address]- 7054 Nov, [facility] [place] [facility] [address] [id number] [place] [address]- 0331 Nov, [facility] [place] [facility] [address] [id number] [place] [address]- 5752 Nov, [facility] [place] [facility] [address] [id number] [place] [address]- 5169 Nov, [facility] [place] [facility] [address] [id number] [place] [address]- 2536 Nov, [facility] [place] [facility] [address] [id number] [place] [address]- 7520 Nov, [facility] [place] [facility] [address] [id number] [place] [address]- 5085 Nov, [facility] [place] [facility] [address] [id number] [place] [address]- 9130 Nov, [facility] [place] [facility] [address] [id number] [place] [address]- 7147 Nov, [facility] [place] [facility] [address] [id number] [place] [address]- 8339 Nov, [facility] [place] [facility] [address] [id number] [place] [address]- 3392 Nov, [facility] [place] [facility] [address] [id number] [place] [address]- 3302 Nov, [facility] [place] [facility] [address] [id number] [place] [address]- 7682 Nov, [facility] [place] [facility] [address] [id number] [place] [address]- 3027 Nov, [facility] [place] [facility] [address] [id number] [place] [address]- 2004 Oct, [facility] [place] [facility] [address] [id number] [place] [address]- 9576 Oct, [facility] [place] [facility] [address] [id number] [place] [address]- 2947 Oct, [facility] [place] [facility] [address] [id number] [place] [address]- 0009 Oct, [facility] [place] [facility] [address] [id number] [place] [address]- 8885 Sep, [facility] [place] [facility] [address] [id number] [place] [address]- 9869 Sep, [facility] [place] [facility] [address] [id number] [place] [address]- 4719 Sep, [facility] [place] [facility] [address] [id number] [place] [address]- 7894 Sep, [facility] [place] [facility] [address] [id number] [place] [address]- 7739 Sep, [facility] [place] [facility] [address] [id number] [place] [address]- 8303 Sep, [facility] [place] [facility] [address] [id number] [place] [address]- 9711 Sep, [facility] [place] [facility] [address] [id number] [place] [address]- 2638 Sep, [facility] [place] [facility] [address] [id number] [place] [address]- 4400 Aug, [facility] [place] [facility] [address] [id number] [place] 2070 Aug, [facility] [place] [facility] [address] [id number] [place] [address]- 7091 Aug, [facility] [place] [facility] [address] [id number] [place] 2320 Aug, [facility] [place] [facility] [address] [id number] [place] 2417 Aug, [facility] [place] [facility] [address] [id number] [place] [address]- 2648 Aug, [facility] [place] [facility] [address] [id number] [place] [address]- 0476 Aug, [facility] [place] [facility] [address] [id number] [place] [address]- 4690 Aug, [facility] [place] [facility] [address] [id number] [place] [address]- 1980 Jul, [facility] [place] [facility] [address] [id number] [place] [address]- 4913 Jul, [facility] [place] [facility] [address] [id number] [place] [address]- 7651 Jul, [facility] [place] [facility] [address] [id number] [address]- 0190 Jul, [facility] [place] [facility] [address] [id number] [address]- 5527 Jul, [facility] [place] [facility] [address] [id number] [place] [address]- 9570 Jul, [facility] [place] [facility] [address] [id number] [place] [address]- 6297 Jul, [facility] [place] [facility] [address] [id number] [place] 5730 Jul, [facility] [place] [facility] [address] [id number] [place] [address]- 2441 Jul, [facility] [place] [facility] [address] [id number] [place] 3217 Jul, [facility] [place] [facility] [address] [id number] [place] 0351 Jul, [facility] [place] [facility] [address] [id number] [place] 8521 Jun, [facility] [place] [facility] [address] [id number] [place] [address]- 1835 Jun, [facility] [place] [facility] [address] [id number] [place] [address]- 0247 Jun, [facility] [place] [facility] [address] [id number] [place] [address]- 8965 Jun, [facility] [place] [facility] [address] [id number] [place] [address]- 8374 Jun, [facility] [place] [facility] [address] [id number] [place] [address]- 6301 Jun, [facility] [place] [facility] [address] [id number] [place] [address]- 5319 Jun, [facility] [place] [facility] [address] [id number] [place] [address]- 3267 Jun, [facility] [place] [facility] [address] [id number] [place] [address]- 1819 Jun, [facility] [place] [facility] [address] [id number] [place] [address]- 7451 24 Jun, 2014 [facility] [place] [facility] [address] [id number] [place] [address]- 9609 17 Jun, 2014 [facility] [place] [facility] [address] [id number] [place] [address]- 4806 16 Jun, 2013 [facility] [place] [facility] [address] [id number] [place] 6352 16 Jun, 2014 [facility] [place] [facility] [address] [id number] [place] [address]- 7649 09 Jun, 2014 [facility] [place] [facility] [address] [id number] [place] [address]- 2703 Jun, [facility] [place] [facility] [address] [id number] [place] [address]- 4105 Jun, [facility] [place] [facility] [address] [id number] [place] [address]- 0115 Jun, [facility] [place] [facility] [address] [id number] [place] [address]- 1498 25 May, 2013 [facility] [place] [facility] [address] [id number] [place] [address]- 8429 11 May, 2013 [facility] [place] [facility] [address] [id number] [place] [address]- 2165 May, 2013 [facility] [place] [facility] [address] [id number] [place] [address]- 4000 04 May, 2013 [facility] [place] [facility] [address] [id number] [place] [address]- 5599 04 May, 2014 [facility] [place] [facility] [address] [id number] [place] [address]- 6964 May, [facility] [place] [facility] [address] [id number] [place] [address]- 3717 May, [facility] [place] [facility] [address] [id number] [address]- 8639 Apr, [facility] [place] [facility] [address] [id number] [place] [address]- 6086 Apr, [facility] [place] [facility] [address] [id number] [place] [address]- 3645 Apr, [facility] [place] [facility] [address] [id number] [place] [address]- 7492 Apr, [facility] [place] [facility] [address] [id number] [place] [address] Apr, [facility] [place] [facility] [address] [id number] [place] [address] Apr, [facility] [place] [facility] [address] [id number] [place] [address] Apr, [facility] [place] [facility] [address] [id number] [place] [address] Apr, [facility] [place] [facility] [address] [id number] [place] [address] Apr, [facility] [place] [facility] [address] [id number] [place] [address] Apr, [facility] [place] [facility] [address] [id number] [place] [address] Apr, [facility] [place] [facility] [address] [id number] [place] [address] Mar, [facility] [place] [facility] [address] [id number] [place] [address] Mar, [facility] [place] [facility] [address] [id number] [place] [address] Mar, [facility] [place] [facility] [address] [id number] [place] [address] Mar, [facility] [place] [facility] [address] [id number] [place] [address] Feb, [facility] [place] [facility] [address] [id number] [place] [address] Feb, [facility] [place] [facility] [address] [id number] [place] [address] Feb, [facility] [place] [facility] [address] [id number] [place] [address] Feb, [facility] [place] [facility] [address] [id number] [place] [address] Feb, [facility] [place] [facility] [address] [id number] [place] [address] Feb, [facility] [place] [facility] [address] [id number] [place] [address] Feb, [facility] [place] [facility] [address] [id number] [place] [address] Feb, [facility] [place] [facility] [address] [id number] [place] [address] January, [facility] [place] [facility] [address] [id number] [place] [address] January, [facility] [place] [facility] [address] [id number] [place] [address] January, [facility] [place] [facility] [address] [id number] [place] [address] January, [facility] [place] [facility] [address] [id number] [place] [address] Dec, [facility] [place] [facility] [address] [id number] [place] [address] Dec, [facility] [place] [facility] [address] [id number] [place] [address] Dec, [facility] [place] [facility] [address] [id number] [place] [address] Dec, [facility] [place] [facility] [address] [id number] [place] [address] Dec, [facility] [place] [facility] [address] [id number] [place] [address] Dec, [facility] [place] [facility] [address] [id number] [place] [address] Dec, [facility] [place] [facility] [address] [id number] [place] [address] Dec, [facility] [place] [facility] [address] [id number] [place] [address] Dec, [facility] [place] [facility] [address] [id number] [place] [address] Dec, [facility] [place] [facility] [address] [id number] [place] [address] Nov, [facility] [place] [facility] [address] [id number] [place] [address]- [address] Nov, [facility] [place] [facility] [address] [id number] [place] [address] Nov, [facility] [place] [facility] [address] [id number] [place] [address] Nov, [facility] [place] [facility] [address] [id number] [place] [address] Nov, [facility] [place] [facility] [address] [address] [id number] [place] [address] Oct, [facility] [place] [facility] [address] [id number] [place] [address] Oct, [facility] [place] [facility] [address] [id number] [place] [address] Sep, [facility] [place] [facility] [address] [id number] [place] [address] Sep, [facility] [place] [facility] [address] [id number] [place] [address] Sep, [facility] [place] [facility] [address] [id number] [place] [address] Sep, [facility] [place] [facility] [address] [id number] [place] [address] Aug, [facility] [place] [facility] [address] [id number] [place] [address] Aug, [facility] [place] [facility] [address] [facility] [id number] [place] [address] Aug, [facility] [place] [facility] [address] [id number] [place] [address] 05 Aug, 2012 [facility] [address] [id number] [place] [address] Aug, 2012 [facility] [place] [facility] [address] [id number] [place] [address] Aug, [facility] [place] [facility] [address] [id number] [place] [address] Aug, 2012 [facility] [place] [facility] [address] [id number] [place] [address] Aug, [facility] [place] [facility] [address] [id number] [place] [address] Jul, [facility] [place] [facility] [address] [id number] [place] [address] Jul, [facility] [place] [facility] [address] [facility] [id number] [place] [address] Jul, [facility] [place] [facility] [address] [id number] [place] [address] Jul, [facility] [place] [facility] [address] [facility] [id number] [place] [address] Jun, [facility] [place] [facility] [address] [facility] [id number] [place] [address] Jun, [facility] [place] [facility] [address] [facility] [id number] [place] [address] Jun, [facility] [place] [facility] [address] [id number] [place] [address] Jun, [facility] [place] [facility] [address] [id number] [place] [address] Jun, [facility] [place] [facility] [address] [facility] [id number] [place] [address] May, [facility] [place] [facility] [address] [id number] [place] [address] Apr, [facility] [place] [facility] [address] [id number] [place] [address] Apr, [facility] [address] [id number] [place] [address] Mar, [facility] [address] [id number] [place] [address] Feb, [facility] [address] [id number] [place] [address] Feb, [facility] [address] [id number] [place] [address] January, [facility] [address] [id number] [place] [address] 98[address] January, [facility] [address] [id number] [place] [address] January, [facility] [address] [id number] [place] [address] Nov, [facility] [address] [id number] [place] [address] Oct, [facility] [address] [id number] [place] [address] 1806 Oct, [facility] [address] [id number] [place] [address] Oct, [facility] [address] [id number] [place] [address] Sep, [facility] [address] [id number] [place] [address] Sep, [facility] [address] [id number] [place] [address] Aug, [facility] [place] [facility] [address] [id number] [place] [address] Aug, [facility] [address] [id number] [place] [address] Jul, [facility] [place] [facility] [address] [id number] [place] [address] Jul, [facility] [place] [facility] [address] [id number] [place] [address] Jul, [facility] [place] [facility] [address] [facility] [id number] [place] [address] Jul, [facility] [place] [facility] [address] [id number] [place] [address] 30[address] Jul, [facility] [place] [facility] [address] [id number] [place] [address] Jul, [facility] [place] [facility] [address] [facility] [id number] [place] [address] 5[address] Jul, [facility] [place] [facility] [address] [id number] [place] [address] Jul, [facility] [place] [facility] [address] [facility] [id number] [place] [address] Jul, [facility] [place] [facility] [address] [facility] [id number] [place] [address] 15[address] Jul, [facility] [place] [facility] [address] [facility] [id number] [place] [address]- 66[address] Jul, [facility] [place] [facility] [address] [facility] [id number] [place] [address] 8981 Jul, [facility] [place] [facility] [address] [facility] [id number] [place] [address] 7787 Jul, [facility] [place] [facility] [address] [id number] [place] [address] 32[address] Jul, [facility] [place] [facility] [address] [facility] [id number] [place] [address]- 4485 Jun, [facility] [place] [facility] [address] [facility] [id number] [place] [address]- 7110 Jun, [facility] [place] [facility] [address] [id number] [place] [address]- 7783 Jun, [facility] [place] [facility] [address] [id number] [place] [address]- 1803 Jun, [facility] [place] [facility] [address] [id number] [place] [address] Jun, [facility] [place] [facility] [address] [id number] [place] [address]- 4046 Jun, [facility] [place] [facility] [address] [id number] [place] [address]- 0308 Jun, [facility] [place] [facility] [address] [id number] [place] [address]- 3739 Apr, [facility] [place] [facility] [address] [id number] [place] [address]- 5807 Apr, [facility] [place] [facility] [address] [id number] [place] [address]- 4260 Mar, [facility] [place] [facility] [address] [id number] [place] [address]- 9538 Feb, [facility] [place] [facility] [address] [id number] [place] [address]- 1085 Feb, [facility] [place] [facility] [address] [id number] [place] [address]- 9530 January, [facility] [place] [facility] [address] [id number] [place] [address]- 6896 January, [facility] [place] [facility] [address] [id number] [place] [address]- 2815 Dec, [facility] [place] [facility] [address] [id number] [place] [address]- 3766 Dec, [facility] [place] [facility] [address] [id number] [place] [address]- 9806 Nov, [facility] [place] [facility] [address] [id number] [place] [address]- 1864 Oct, [facility] [place] [facility] [address] [id number] [place] [address]- 2788 Oct, [facility] [place] [facility] [address] [id number] [place] [address]- 8225 Oct, [facility] [place] [facility] [address] [facility] [id number] [place] [address]- 2514 Sep, [facility] [place] [facility] [address] [id number] [place] [address]- 3153 Aug, [facility] [place] [facility] [address] [id number] [place] [address]- 3155 Aug, [facility] [place] [facility] [address] [id number] [place] [address]- 3318 Aug, [facility] [place] [facility] [address] [id number] [place] [address]- 0015 Aug, [facility] [place] [facility] [address] [id number] [place] [address]- 3132 Aug, [facility] [place] [facility] [address] [id number] [place] [address]- 2770 Jul, [facility] [place] [facility] [address] [id number] [place] [address]- 0167 Jul, [facility] [place] [facility] [address] [id number] [place] [address]- 9756 Jul, [facility] [place] [facility] [address] [id number] [place] [address]- 9510 Jul, [facility] [place] [facility] [address] [id number] [place] [address]- 1815 Aug, [facility] [place] [facility] [address] [id number] [place] [address]- 9395 Aug, [facility] [place] [facility] [address] [facility] [id number] [place] [address]- 7770 Aug, [facility] [place] [facility] [address] [id number] [id number] Jun, [facility] [id number] [address] Jun, [facility] [id number] [address]- 3955 Jun, [facility] [id number] [address]- 8506 Jun, [facility] [id number] [address]- 9623 Jun, [facility] [id number] [place] [address]- [address] Jul, [facility] [id number] [address]- 7433 Jul, [facility] [id number] [address] Jun, [facility] [address] [id number] [address]- 6063 Jun, IMMUNIZATIONS No Known Immunizations SOCIAL HISTORY Never Assessed REASON FOR VISIT Controlled Med Refill 10/19/17 PLAN OF CARE VITAL SIGNS MEDICATIONS Medication [...]
--- OUTSIDE RECORDS SUMMARY | 2018-05-26 08:29 | XMS REPORT ---
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 Name Role Phone LASHAY BLACK Unavailable PROBLEMS Type Condition ICD9-CM Code [id number] Code Onset Dates Condition Status SNOMED Code Problem Irritable bowel syndrome with diarrhea K58.0 Active 619293582 Problem Venous vascular malformations Q27.9 Active 707929297 Problem Chronic obstructive pulmonary disease, unspecified COPD type J44.9 Active 73931518 Problem Primary insomnia F51.01 Active 7336162 Problem Migraine without aura and without status migrainosus, not intractable G43.009 Active 942369127 Problem 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 811389086 Problem Hypercholesterolemia E78.00 Active 34145008 Problem Post concussion syndrome F07.81 Active 82723085 Problem Other headache syndrome G44.89 Active 237845652 Problem Unspecified asthma, uncomplicated J45.909 Active 796206273 Problem Cervicalgia M54.2 Active 19244673 Problem Other chronic pain G89.29 Active 88205230 Problem Hypertension I10 Active 71851348 Problem Idiopathic sleep related nonobstructive alveolar 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 Active 70917532 Problem Anxiety F41.9 Active 52851767 Problem Obstructive sleep apnea G47.33 Active 17977373 ALLERGIES No Information ENCOUNTERS Encounter Location Date Diagnosis [facility] [id number] [address] January, [facility] [id number] [place] [address] 91370- 3609 Dec, Drug-induced constipation K59.03 ; Fatigue, unspecified type R53.83 ; Forgetfulness R68.89 ; Other chronic pain G89.29 and Primary insomnia F51.01 [facility] [id number] [place] [address] 23330- 7805 Nov, [facility] [id number] [place] [address] 78788- 3841 Oct, Other chronic pain G89.29 [facility] [id number] [place] [address] 82305- 8924 Sep, Other chronic pain G89.29 [facility] [id number] [place] [address] 45829- 8228 Sep, Other chronic pain G89.29 [facility] [id number] [place] [address] 32940- 0383 Aug, Other chronic pain G89.29 [place] [address] 32920- 9881 Jul, Other chronic pain G89.29 ; Encounter for immunization Z23 and Side effects of treatment, initial encounter T88.9XXA [place] [address] 18858- 1217 Jul, Other chronic pain G89.29 [facility] [id number] [place] [address] 95279 -2387 Jul, [facility] [id number] [place] [address] 09448- 5733 Jul, Encounter for immunization Z23 [facility] [id number] [place] [address] 74935- 8322 Jun, Hypertension I10 ; Other headache syndrome G44.89 ; Post concussion syndrome F07.81 and Other chronic pain G89.29 [facility] [id number] [place] [address] 53763- 5188 May, [place] [address] 30369- 2600 May, Migraine without aura and without status migrainosus, not intractable G43.009 [facility] [id number] [place] [address] 83089- 2830 May, 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 [facility] [id number] [place] [address] 18745- 2140 May, Other chronic pain G89.29 [facility] [id number] [place] [address] 81388- 5239 Apr, Chronic obstructive pulmonary disease, unspecified COPD type J44.9 [facility] [id number] [place] [address] 33374- 1599 Apr, Chronic obstructive pulmonary disease, unspecified COPD type J44.9 [facility] [id number] [place] [address] 24497- 1794 Apr, Other chronic pain G89.29 ; Irritable bowel syndrome with diarrhea K58.0 and Hypercholesterolemia E78.00 [place] [id number] [place] [address] 66513- 5136 Apr, Other chronic pain G89.29 [facility] [id number] [place] [address] 57302- 5315 Mar, Other chronic pain G89.29 [facility] [id number] [place] [address] 15294- 6194 Feb, 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 [place] [address] [address]- 3231 Feb, Other chronic pain G89.29 [facility] [id number] [place] [address] 15324- 5861 Feb, [facility] [id number] [place] [address] 54868- 9262 January, [facility] [id number] [place] [address] 12876- 3935 January, Other chronic pain G89.29 [facility] [id number] [place] [address] 71240- 7256 January, [place] [id number] [place] [address] 75257- 2949 January, [facility] [id number] [place] [address] 46609- 6351 January, Other chronic pain G89.29 ; Irritable bowel syndrome with diarrhea K58.0 and Hypercholesterolemia E78.00 [facility] [id number] [place] [address] 29571- 8497 January, Other chronic pain G89.29 ; Hypertension I10 ; Irritable bowel syndrome with diarrhea K58.0 ; Chronic obstructive pulmonary disease, unspecified COPD type J44.9 and Venous vascular malformations Q27.9 [facility] [id number] [place] [address] 87830 -2373 January, Acute otitis externa of right ear, unspecified type H60.501 [facility] [id number] [place] [address] 60412- 6756 Dec, Other chronic pain G89.29 [facility] [id number] [place] [address] 47761- 8352 Dec, Hypertension I10 [facility] [id number] [place] [address] 39953- 8270 Nov, Other chronic pain G89.29 [facility] [id number] [place] [address] 89112- 3374 Oct, Other chronic pain G89.29 [facility] [id number] [place] [address] 98250- 3159 Sep, Other chronic pain G89.29 [facility] [id number] [place] [address] 22527- 9200 Sep, Hypertension I10 [facility] [id number] [place] [address] 87154- 1477 Sep, Other chronic pain G89.29 [facility] [id number] [place] [address] 60281- 4809 Aug, Arthralgia, unspecified joint M25.50 ; Other chronic pain G89.29 ; Obstructive sleep apnea G47.33 and Idiopathic sleep related nonobstructive alveolar 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 [facility] [id number] [place] [address] 12927- 9122 Aug, [place] [address] 75555- 3040 Aug, Other chronic pain G89.29 [place] [address] 93543- 5147 Jul, Chronic obstructive pulmonary disease, unspecified COPD type J44.9 and Diarrhea, unspecified type R19.7 [place] [address] 02211- 0232 Jul, Other chronic pain G89.29 [place] [address] 07736- 1584 Jul, Skin tags, multiple acquired L91.8 [place] [address] 34759- 3780 Jun, [place] [address] 24091- 1878 Jun, Hypertension I10 [place] [address] 16357- 9447 May, Mouth pain K13.79 and Other chronic pain G89.29 [place] [id number] [place] [address] 98299- 3114 May, [place] [address] 14481- 8463 May, [place] [address] 64410- 9426 May, Pain in right knee M25.561 and Other chronic pain G89.29 [place] [address] 55304- 2394 Apr, Cervicalgia M54.2 [place] [address] 49693- 2170 Mar, Cervicalgia M54.2 [place] [address] 18339- 9564 27 Feb, 2016 Fever, unspecified fever cause R50.9 and Arthralgia, unspecified joint M25.50 [place] [address] 76529- 5655 15 Feb, 2016 Hypertension I10 and Chronic pain syndrome G89.4 [place] [address] 80197- 0206 08 Feb, 2016 Cervicalgia M54.2 [place] [address] 59469- 9758 January, [place] [address] 54663- 4116 Dec, Chest pain R07.9 ; Family history of early CAD Z82.49 ; Hypertension I10 ; Fatigue R53.83 and History of IBS Z87.19 [place] [address] 34863- 6581 Dec, [place] [address] 58201- 5163 Nov, Allergic rhinitis J30.9 [place] [address] 09541- 4848 Nov, [place] [address] 09276- 8833 Nov, Hypertension I10 and Anxiety F41.9 [place] [address] 69276- 1456 Nov, [place] [address] 00416- 0734 Oct, [place] [id number] [place] [address] 07120- 7040 10 Oct, 2015 Chest pain R07.9 ; Family history of early CAD Z82.49 ; Hypertension I10 ; Fatigue R53.83 and History of IBS Z87.19 [place] [id number] [place] [address] 54924- 1094 Oct, [place] [address] 09105- 2538 Oct, Chest pain, unspecified R07.9 [place] [id number] [place] [address] 93091- 7605 Oct, Chest pain, unspecified R07.9 ; Irritable bowel syndrome with diarrhea K58.0 ; Fatigue R53.83 and Degenerative disc disease, cervical M50.30 [place] [id number] [place] [address] 36378- 7618 Oct, [place] [id number] [place] [address] 67601- 1256 Oct, [place] [id number] [place] [address] 68722- 2892 Sep, [place] [id number] [place] [address] 21083- 4118 Sep, [place] [id number] [place] [address] 17688- 6711 Aug, [facility] [id number] [place] [address] 48994- 1826 Aug, [place] [id number] [place] [address] 46389- 5038 Aug, [facility] [id number] [place] [address] 90825- 3262 Jul, Cervicalgia M54.2 ; Headache R51 ; Post-traumatic headache, unspecified, not intractable G44.309 and Unspecified intracranial injury without loss of consciousness, sequela S06.9X0S [facility] [place] [facility] [id number] [address]- 0846 Jul, [facility] [place] [facility] [address] [place] [address]- 9455 Jul, [facility] [place] [facility] [address] [address]- 8551 Jun, [facility] [place] [facility] [id number] [place] [address] 99557- 5836 Jun, Encounter for immunization Z23 [facility] [place] [facility] [id number] [place] [address], [place] [address]- 4190 Jun, [facility] [place] [facility] [id number] [place] [address] 88324- 7864 May, [facility] [place] [facility] [id number] [place] [address] 57993- 3515 May, [facility] [place] [facility] [id number] [address]- 4417 Apr, [facility] [place] [facility] [address] [place] [address], [place] [address]- 6506 Apr, [facility] [place] [facility] [address], [place] [address]- 2023 Apr, [facility] [place] [facility] [address] [address]- 1871 Mar, [facility] [place] [facility] [address] [address]- 6386 Mar, [facility] [place] [facility] [address] [address]- 6487 Mar, [facility] [place] [facility] [address] [address]- 7958 Feb, [facility] [place] [facility] [address] [address]- 4952 Feb, [facility] [place] [facility] [address] [id number] [place] [address]- 2439 January, [facility] [place] [facility] [address] [id number] [place] [address]- 2115 January, [facility] [place] [facility] [address] [id number] [place] [address]- 9208 Dec, [facility] [place] [facility] [address] [id number] [place] [address]- 2490 Dec, [facility] [place] [facility] [address] [id number] [place] [address]- 7074 Nov, [facility] [place] [facility] [address] [id number] [place] [address]- 1775 Nov, [facility] [place] [facility] [address] [id number] [place] [address]- 3760 Nov, [facility] [place] [facility] [address] [id number] [place] [address]- 6267 Nov, [facility] [place] [facility] [address] [id number] [place] [address]- 4891 Nov, [facility] [place] [facility] [address] [id number] [place] [address]- 4210 Nov, [facility] [place] [facility] [address] [id number] [place] [address]- 1892 Nov, [facility] [place] [facility] [address] [id number] [place] [address]- 9106 Nov, [facility] [place] [facility] [address] [id number] [place] [address]- 7365 Nov, [facility] [place] [facility] [address] [id number] [place] [address]- 9095 Nov, [facility] [place] [facility] [address] [id number] [place] [address]- 8306 Nov, [facility] [place] [facility] [address] [id number] [place] [address]- 5599 Nov, [facility] [place] [facility] [address] [id number] [place] [address]- 8970 Nov, [facility] [place] [facility] [address] [id number] [place] [address]- 5572 Nov, [facility] [place] [facility] [address] [id number] [place] [address]- 4932 Oct, [facility] [place] [facility] [address] [id number] [place] [address]- 4242 Oct, [facility] [place] [facility] [address] [id number] [place] [address]- 1751 Oct, [facility] [place] [facility] [address] [id number] [place] [address]- 5754 Oct, [facility] [place] [facility] [address] [id number] [place] [address]- 0924 Sep, [facility] [place] [facility] [address] [id number] [place] [address]- 2437 Sep, [facility] [place] [facility] [address] [id number] [place] [address]- 8424 Sep, [facility] [place] [facility] [address] [id number] [place] [address]- 9448 Sep, [facility] [place] [facility] [address] [id number] [place] [address]- 3373 Sep, [facility] [place] [facility] [address] [id number] [place] [address]- 7737 Sep, [facility] [place] [facility] [address] [id number] [place] [address]- 4040 Sep, [facility] [place] [facility] [address] [id number] [place] [address]- 7264 Sep, [facility] [place] [facility] [address] [id number] [place] [address]- 4854 Aug, [facility] [place] [facility] [address] [id number] [place] [address]- 1637 Aug, [facility] [place] [facility] [address] [id number] [place] [address]- 7917 Aug, [facility] [place] [facility] [address] [id number] [place] [address]- 8332 Aug, [facility] [place] [facility] [address] [id number] [place] 5644 Aug, [facility] [place] [facility] [address] [id number] [place] [address]- 0323 Aug, [facility] [place] [facility] [address] [id number] [place] [address]- 8343 Aug, [facility] [place] [facility] [address] [id number] [place] [address]- 0862 Aug, [facility] [place] [facility] [address] [id number] [place] [address]- 9656 Jul, [facility] [place] [facility] [address] [id number] [place] [address]- 0631 Jul, [facility] [place] [facility] [address] [id number] [place] [address]- 5737 Jul, [facility] [place] [facility] [address] [id number] [place] [address]- 4592 Jul, [facility] [place] [facility] [address] [id number] [place] [address]- 6171 Jul, [facility] [place] [facility] [address] [id number] [place] [address]- 8898 Jul, [facility] [place] [facility] [address] [id number] [place] 2994 Jul, [facility] [place] [facility] [address] [id number] [place] [address]- 0116 Jul, [facility] [place] [facility] [address] [id number] [place] [address]- 1373 Jul, [facility] [place] [facility] [address] [id number] [place] [address]- 2570 Jul, [facility] [place] [facility] [address] [id number] [place] [address]- 9199 Jul, [facility] [place] [facility] [address] [id number] [place] [address]- 4740 Jun, [facility] [place] [facility] [address] [id number] [place] [address]- 7763 Jun, [facility] [place] [facility] [address] [id number] [place] 5476 Jun, [facility] [place] [facility] [address] [id number] [place] [address]- 9031 Jun, [facility] [place] [facility] [address] [id number] [place] [address]- 6249 Jun, [facility] [place] [facility] [address] [id number] [place] [address]- 7755 Jun, [facility] [place] [facility] [address] [id number] [place] [address]- 5792 Jun, [facility] [place] [facility] [address] [id number] [place] [address]- 6314 Jun, [facility] [place] [facility] [address] [id number], [place] [address]- 4894 Jun, [facility] [place] [facility] [address] [id number], [place] [address]- 7605 Jun, [facility] [place] [facility] [address] [id number] [place] [address]- 3268 Jun, [facility] [place] [facility] [address] [id number] [place] [address]- 4974 Jun, [facility] [place] [facility] [address] [id number], [place] [address]- 3910 Jun, [facility] [place] [facility] [address] [id number], [place] [address]- 0040 Jun, [facility] [place] [facility] [address] [id number] [place] [address]- 3843 Jun, [facility] [place] [facility] [address] [id number] [place] [address]- 9539 Jun, [facility] [place] [facility] [address] [id number] [place] [address]- 0627 Jun, [facility] [place] [facility] [address] [id number] [place] [address]- 9072 25 May, 2014 [facility] [place] [facility] [address] [id number] [place] [address]- 0757 11 May, 2014 [facility] [place] [facility] [address] [id number] [place] [address]- 7042 11 May, 2014 [facility] [place] [facility] [address] [id number] [place] [address]- 9252 04 May, 2014 [facility] [place] [facility] [address] [id number] [place] [address]- 6392 04 May, 2014 [facility] [place] [facility] [address] [id number] [place] [address]- 8022 03 May, 2014 [facility] [place] [facility] [address] [id number] [place] [address]- 6610 03 May, 2014 [facility] [place] [facility] [address] [id number] [place] [address]- 2279 Apr, [facility] [place] [facility] [address] [id number] [place] [address]- 6651 Apr, [facility] [place] [facility] [address] [id number] [place] [address]- 3762 15 Apr, 2014 [facility] [place] [facility] [address] [id number] [place] [address]- 6945 15 Apr, 2014 [facility] [place] [facility] [address] [id number] [place] [address]- 0129 14 Apr, 2014 [facility] [place] [facility] [address] [id number] [place] [address]- 2587 Apr, [facility] [place] [facility] [address] [id number] [place] [address] Apr, [facility] [place] [facility] [address] [id number] [place] [address] Apr, [facility] [place] [facility] [address] [id number] [place] [address] Apr, [facility] [place] [facility] [address] [id number] [place] [address] Apr, [facility] [place] [facility] [address] [id number] [place] [address] Apr, [facility] [place] [facility] [address] [id number] [place] [address] Mar, [facility] [place] [facility] [address] [id number] [place] [address] Mar, [facility] [place] [facility] [address] [id number] [place] [address] Mar, [facility] [place] [facility] [address] [id number] [place] [address] Mar, [facility] [place] [facility] [address] [id number] [place] [address] Feb, [facility] [place] [facility] [address] [id number] [place] [address] Feb, [facility] [place] [facility] [address] [id number] [place] [address] Feb, [facility] [place] [facility] [address] [id number] [place] [address] Feb, [facility] [place] [facility] [address] [id number] [place] [address] 240[address] Feb, [facility] [place] [facility] [address] [id number] [place] [address] Feb, [facility] [place] [facility] [address] [id number] [place] [address] Feb, [facility] [place] [facility] [address] [id number] [place] [address] Feb, [facility] [place] [facility] [address] [id number] [place] [address] January, [facility] [place] [facility] [address] [id number] [place] [address] January, [facility] [place] [facility] [address] [id number] [place] [address] January, [facility] [place] [facility] [address] [id number] [place] [address] January, [facility] [place] [facility] [address] [id number] [place] [address]- 164[address] Dec, [facility] [place] [facility] [address] [id number] [place] [address] 3867 Dec, [facility] [place] [facility] [address] [id number] [place] [address] Dec, [facility] [place] [facility] [address] [id number] [place] [address] Dec, [facility] [place] [facility] [address] [id number] [place] [address] Dec, [facility] [place] [facility] [address] [id number] [place] [address] 37[address] Dec, [facility] [place] [facility] [address] [id number] [place] [address] 2599 Dec, [facility] [place] [facility] [address] [id number] [place] [address] Dec, [facility] [place] [facility] [address] [id number] [place] [address] Dec, [facility] [place] [facility] [address] [id number] [place] [address]- 2526 Dec, [facility] [place] [facility] [address] [id number] [place] [address] Nov, [facility] [place] [facility] [address] [id number] [place] [address] Nov, [facility] [place] [facility] [address] [id number] [place] [address] 1486 Nov, [facility] [place] [facility] [address] [id number] [place] [address]- 1452 Nov, [facility] [place] [facility] [address] [id number] [place] [address] Nov, [facility] [place] [facility] [address] [id number] [place] [address] 8927 Oct, [facility] [place] [facility] [address] [id number] [place] [address] Oct, [facility] [place] [facility] [address] [id number] [place] [address] Sep, [facility] [place] [facility] [address] [id number] [place] [address] Sep, [facility] [place] [facility] [address] [id number] [place] [address]- 4704 Sep, [facility] [place] [facility] [address] [id number] [place] [address] Sep, [facility] [place] [facility] [address] [id number] [place] [address] Aug, [facility] [place] [facility] [address] [id number] [place] [address] Aug, [facility] [place] [facility] [address] [id number] [place] [address]- [address] Aug, [facility] [place] [facility] [address] [id number] [place] [address] Aug, [facility] [place] [facility] [address] [id number] [place] [address] 39[address] Aug, [facility] [place] [facility] [address] [id number] [place] [address] Aug, [facility] [place] [facility] [address] [id number] [place] [address] Aug, [facility] [place] [facility] [address] [id number] [place] [address] Aug, [facility] [place] [facility] [address] [id number] [place] [address] Jul, [facility] [place] [facility] [address] [id number] [place] [address] Jul, [facility] [address] [id number] [place] [address] Jul, [facility] [place] [facility] [address] [id number] [place] [address] Jul, [facility] [place] [facility] [address] [id number] [place] [address] Jun, [facility] [place] [facility] [address] [id number] [place] [address] Jun, [facility] [place] [facility] [address] [id number] [place] [address] Jun, [facility] [place] [facility] [address] [id number], [place] [address] Jun, [facility] [place] [facility] [address] [id number] [place] [address] Jun, [facility] [place] [facility] [address] [id number] [place] [address] May, [facility] [place] [facility] [address] [id number], [place] [address] Apr, [facility] [place] [facility] [address] [id number], [place] [address] Apr, [facility] [address] [id number] [place] [address] Mar, [facility] [address] [id number] [place] [address] Feb, [facility] [address] [id number] [place] [address] Feb, [facility] [address] [id number] [place] [address] January, [facility] [address] [id number] [place] [address] January, [facility] [address] [id number] [place] [address] January, [facility] [address] [facility] [id number] [place] [address] Nov, [facility] [address] [id number] [place] [address] Oct, [facility] [address] [id number] [place] [address] Oct, [facility] [address] [id number] [place] [address] Oct, [facility] [address] [id number] [place] [address] Sep, [facility] [address] [id number], [place] [address] Sep, [facility] [address] [id number] [place] [address] Aug, [facility] [place] [facility] [address] [id number] [place] [address] Aug, [facility] [address] [id number] [place] [address] Jul, [facility] [place] [facility] [address] [id number] [place] [address] Jul, [facility] [place] [facility] [address] [id number] [place] [address] Jul, [facility] [place] [facility] [address] [id number] [place] [address] Jul, [facility] [place] [facility] [address] [id number] [place] [address] Jul, [facility] [place] [facility] [address] [id number] [place] [address] Jul, [facility] [place] [facility] [address] [id number] [place] [address] Jul, [facility] [place] [facility] [address] [id number] [place] [address] Jul, [facility] [place] [facility] [address] [id number] [place] [address] Jul, [facility] [place] [facility] [address] [id number] [place] [address] Jul, [facility] [place] [facility] [address] [id number] [place] [address] Jul, [facility] [place] [facility] [address] [id number] [place] [address] Jul, [facility] [place] [facility] [address] [id number] [place] [address] Jul, [facility] [place] [facility] [address] [id number] [place] [address] Jul, [facility] [place] [facility] [address] [id number] [place] [address]7 Jun, [facility] [place] [facility] [address] [id number] [place] [address] Jun, [facility] [place] [facility] [address] [id number] [place] [address] 75[address] Jun, [facility] [place] [facility] [address] [id number] [place] [address] 73[address] Jun, [facility] [place] [facility] [address] [id number] [place] [address]- [address] Jun, [facility] [place] [facility] [address] [id number] [place] [address] 8080 Jun, [facility] [place] [facility] [address] [id number] [place] [address] Jun, [facility] [place] [facility] [address] [id number] [place] [address] 28[address] Apr, [facility] [place] [facility] [address] [id number] [place] [address] Apr, [facility] [place] [facility] [address] [id number] [place] [address] Mar, [facility] [place] [facility] [address] [id number] [place] [address]- 77[address] Feb, [facility] [place] [facility] [address] [id number] [place] [address] Feb, [facility] [place] [facility] [address] [facility] [id number] [place] [address] January, [facility] [place] [facility] [address] [id number], [place] [address] January, [facility] [place] [facility] [address] [id number], [place] [address] Dec, [facility] [place] [facility] [address] [id number] [place] [address]- 57[address] Dec, [facility] [place] [facility] [address] [id number], [place] [address] Nov, [facility] [place] [facility] [address] [id number] [place] [address] 8[address] Oct, [facility] [place] [facility] [address] [id number] [place] [address]- [address] 09 Oct, 2011 [facility] [address] [id number] [place] [address]- [address] 08 Oct, 2011 [facility] [address] [id number] [place] [address] 29[address] Sep, [facility] [address] [id number] [place] [address]- [address] 14 Aug, 2011 [facility] [address] [id number] [place] [address] 14 Aug, 2011 [facility] [address] [id number] [place] [address]- 12[address] Aug, [facility] [address] [facility] [id number] [place] [address]- 9[address] 05 Aug, 2011 [facility] [address] [facility] [id number] [place] [address]- 0885 Aug, [facility] [address] [id number] [place] [address]- [address] Jul, [facility] [address] [facility] [id number] [place] [address]- 225[address] Jul, [facility] [address] [facility] [id number] [place] [address]- [address] Jul, [facility] [address] [id number] [place] [address]- 6[address] Jul, [facility] [address] [id number] [place] [address]- 5[address] 29 Aug, 2010 [facility] [address] [id number] [place] [address]- 1610 28 Aug, 2010 [facility] [place] [facility] [address] [facility] [id number] [place] [address]- 9[address] 13 Aug, 2010 [facility] [address] [facility] [id number] [place] [address]- 97[address] Jun, [facility] [address] [id number], [place] [address] Jun, [facility] [id number], [place] [address] Jun, [facility] [id number], [place] [address]67 Jun, [facility] [id number], [place] [address] Jun, [facility] [id number], [place] [address] Jul, [facility] [id number], [place] [address] Jul, [facility] [id number], [place] [address] Jun, [facility] [address] [id number], [place] [address] Jun, IMMUNIZATIONS Vaccine Route Administration Date Status FLUARIX QUAD (3 AND UP) 2016 IM Intramuscular Jul 22, 2017 Administered SOCIAL HISTORY Never Assessed REASON FOR VISIT Flu shot---[place],[facility] PLAN OF CARE VITAL SIGNS MEDICATIONS Unknown Medications RESULTS No Results PROCEDURES Procedure Date Ordered Result Body Site FLUARIX QUAD (3 AND UP) 2016Jul 22, 2017 SINGLE IMMUNIZATION ADMIN Jul 22, 2017 INSTRUCTIONS MEDICATIONS ADMINISTERED No Known Medications [...]
--- OUTSIDE RECORDS SUMMARY | 2018-05-26 08:30 | XMS REPORT ---
Author Author LASHAY BLACK Organization [facility] Address [address] [place] [address] Care Team Providers Care Special Forces Warrant Officer Name Role Phone LASHAY BLACK Unavailable PROBLEMS Type Condition ICD9-CM Code [id number] Code Onset Dates Condition Status SNOMED Code Problem Obstructive sleep apnea G47.33 Active 41927858 Problem Chronic obstructive pulmonary disease, unspecified COPD type J44.9 Active 18416830 Problem Irritable bowel syndrome with diarrhea K58.0 Active 165339062 Problem Migraine without aura and without status migrainosus, not intractable G43.009 Active 104102807 Problem Post concussion syndrome F07.81 Active 05392057 Problem Hypercholesterolemia E78.00 Active 91054962 Problem Venous vascular malformations Q27.9 Active 370192151 Problem Other headache syndrome G44.89 Active 758703313 Problem 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
--- OUTSIDE RECORDS SUMMARY | 2018-05-26 08:30 | XMS REPORT ---
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 286041392 Problem Hypercholesterolemia E78.00 Active 04746841 Problem Chronic obstructive pulmonary disease, unspecified COPD type J44.9 Active 92837488 Problem Idiopathic sleep related nonobstructive alveolar 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 Active 02208370 Problem Venous vascular malformations Q27.9 Active 646773338 Problem Irritable bowel syndrome with diarrhea K58.0 Active [id number] ALLERGIES Unknown Allergies SOCIAL HISTORY No smoking Hx information available PLAN OF CARE VITAL SIGNS MEDICATIONS Medication Instructions Dosage Frequency Start Date End Date Duration Status Hydrocodone-Acetaminophen 7.5-325 MG Orally 3 times a day 1 tablet as needed for pain 8h Sep, 28 days Active RESULTS No Results PROCEDURES No Known procedures IMMUNIZATIONS No Known Immunizations
--- OUTSIDE RECORDS SUMMARY | 2018-05-26 08:30 | XMS REPORT ---
Author Author LASHAY BLACK Organization [facility] Address [address] [place] [address] Care Team Providers Care Area Coordinator Name Role Phone LASHAY BLACK Unavailable PROBLEMS Type Condition ICD9-CM Code BEU52-UB Code Onset Dates Condition Status SNOMED Code Problem Obstructive sleep apnea G47.33 Active 88017189 Problem Chronic obstructive pulmonary disease, unspecified COPD type J44.9 Active 44207691 Problem Irritable bowel syndrome with diarrhea K58.0 Active 858377332 Problem Migraine without aura and without status migrainosus, not intractable G43.009 Active 051490415 Problem Post concussion syndrome F07.81 Active 11325657 Problem Hypercholesterolemia E78.00 Active 52191734 Problem Venous vascular malformations Q27.9 Active 809447528 Problem Other headache syndrome G44.89 Active 479734359 Problem 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
--- OUTSIDE RECORDS SUMMARY | 2018-05-26 08:30 | XMS REPORT ---
Author Author LASHAY BLACK Organization [facility] [place] [facility] Address [address] [place] [address] Care Team Providers Care Generator Switchboard Operator Name Role Phone LASHAY BLACK Unavailable PROBLEMS Type Condition ICD9-CM Code BFD10-[id number] Code Onset Dates Condition Status SNOMED Code Problem Obstructive sleep apnea G47.33 Active 35629776 Problem Chronic obstructive pulmonary disease, unspecified COPD type J44.9 Active 09329537 Problem Irritable bowel syndrome with diarrhea K58.0 Active 857482870 Problem Migraine without aura and without status migrainosus, not intractable G43.009 Active 912409167 Problem Post concussion syndrome F07.81 Active 88456844 Problem Hypercholesterolemia E78.00 Active 51556277 Problem Venous vascular malformations Q27.9 Active 193029850 Problem Other headache syndrome G44.89 Active 410113512 Problem 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
--- OUTSIDE RECORDS SUMMARY | 2018-05-26 08:30 | XMS REPORT ---
Author Author LASHAY BLACK Organization [facility] Address [address] [place] [address] Care Team Providers Care Chief Meteorologist Name Role Phone LASHAY BLACK Unavailable PROBLEMS Type Condition ICD9-CM Code ZUR48-RD Code Onset Dates Condition Status SNOMED Code Problem Obstructive sleep apnea G47.33 Active 89802548 Problem Chronic obstructive pulmonary disease, unspecified COPD type J44.9 Active 73899378 Problem Irritable bowel syndrome with diarrhea K58.0 Active 723073248 Problem Migraine without aura and without status migrainosus, not intractable G43.009 Active 629583047 Problem Post concussion syndrome F07.81 Active 47758699 Problem Hypercholesterolemia E78.00 Active 08698306 Problem Venous vascular malformations Q27.9 Active 386658649 Problem Other headache syndrome G44.89 Active 517350975 Problem 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
--- OUTSIDE RECORDS SUMMARY | 2018-05-26 08:30 | XMS REPORT ---
Author Author LASHAY BLACK [facility] Address [address] [place] [address] Care Team Providers Care Chalk Molding Machine Operator Name Role Phone LASHAY BLACK Unavailable PROBLEMS Type Condition ICD9-CM Code VDR84-WA Code Onset Dates Condition Status SNOMED Code Problem Obstructive sleep apnea G47.33 Active 34551712 Problem Chronic obstructive pulmonary disease, unspecified COPD type J44.9 Active 39379511 Problem Irritable bowel syndrome with diarrhea K58.0 Active 974165291 Problem Migraine without aura and without status migrainosus, not intractable G43.009 Active 530745212 Problem Post concussion syndrome F07.81 Active 32482673 Problem Hypercholesterolemia E78.00 Active 18809915 Problem Venous vascular malformations Q27.9 Active 795307409 Problem Other headache syndrome G44.89 Active 906568977 Problem 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 837577479 Problem Anxiety F41.9 Active 17505977 Problem Cervicalgia M54.2 Active 55764617 Problem Unspecified asthma, uncomplicated J45.909 Active 556555104 Problem Other chronic pain G89.29 Active 18646876 Problem Hypertension I10 Active 58810909 Problem Idiopathic sleep related nonobstructive alveolar 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 Active 82030023 ALLERGIES Substance Reaction Event Type Date Status Penicillin V Potassium Unknown Drug Allergy January, Active Cardura XL Unknown Drug Allergy January, Active SOCIAL HISTORY Never Assessed PLAN OF CARE Activity Details Follow Up 3 Months Reason:pain mgmt VITAL SIGNS Height 68 in 2017-01-26 Weight 170 lbs 2017-01-26 Temperature 98.4 degrees Fahrenheit 2017-01-26 Heart Rate 64 bpm 2017-01-26 Respiratory Rate 18 2017-01-26 BMI 25.85 kg/m2 2017-01-26 Blood pressure systolic 130 mmHg 2017-01-26 Blood pressure diastolic 90 mmHg 2017-01-26 MEDICATIONS Medication Instructions Dosage Frequency Start Date End Date Duration Status Advair Diskus 250 mcg-50 mcg 1 puffs 2 times per day Apr, Active Flomax 0.4 MG TAKE ONE CAPSULE BY MOUTH DAILY 30 Active Aspirin Adult Low Strength 81 MG Orally Once a day 1 tablet 24h Active Sertraline HCl 100 MG Orally Once a day 1 tablet 24h 90 Active Propranolol HCl CR 120 MG Orally Once a day 1 capsule 24h 27 Jun, 2016 90 days Active Flonase Allergy Relief 50 MCG/ACT Nasally twice a day 1 spray in each nostril 12h Nov, Active Ondansetron HCl 8 MG TAKE ONE TABLET BY MOUTH THREE TIMES DAILY NEEDED FOR NAUSEA 6 Active Naproxen 500 MG TAKE ONE TABLET BY MOUTH TWICE DAILY WITH FOOD 30 Active Amitriptyline HCl 25 MG TAKE ONE TO TWO TABLETS BY MOUTH ONCE DAILY AT BEDTIME. 30 Active Bentyl 20 MG Orally Four times a day 1 tablet 6h 30 Active Cortisporin 3.5-57891-6 Otic Three times a day 4 drops into affected ear 8h January, 10 days Active ProAir HFA 108 (90 Base) MCG/ACT Inhalation every 4 hrs 2 puffs as needed 4h Jul, Active Amitiza 8 MCG Orally Twice a day 1 capsule with food 12h January, January, 15 days Active cyclobenzaprine 10 mg 1 tablet by Oral route 3 times per day PRN Nov 30 Active Spiriva HandiHaler 18 MCG Inhalation 2 times a day 1 capsule 12h January, Aug, 30 days Active Hydrocodone-Acetaminophen 7.5-325 MG Orally 3 times a day 1 tablet as needed for pain 8h Dec, 28 days Active RESULTS Name Result Date Reference Range LIPID PANEL 2017-01-26 Cholesterol, Total 232 100-199 Triglycerides 159 0-149 HDL Cholesterol 40 >39 VLDL Cholesterol Alec 32 5-40 LDL Cholesterol Calc 160 0-99 Comment: CMP 2017-01-26 Glucose, Serum 73 65-99 BUN 8 8-27 Creatinine, Serum 1.00 0.76-1.27 eGFR If NonAfricn Am 79 >59 eGFR If Africn Am 92 >59 BUN/Creatinine Ratio 8 10-24 Sodium, Serum 138 134-144 Potassium, Serum 4.2 3.5-5.2 Chloride, Serum 97 96-106 Carbon Dioxide, Total 25 18-29 Calcium, Serum 9.5 8.6-10.2 Protein, Total, Serum 6.9 6.0-8.5 Albumin, Serum 4.4 3.6-4.8 Globulin, Total 2.5 1.5-4.5 A/G Ratio 1.8 1.2-2.2 Bilirubin, Total 0.5 0.0-1.2 Alkaline Phosphatase, S 76 39-117 AST (SGOT) 18 0-40 ALT (SGPT) 21 0-44 AMERITOX 2017-01-26 Ultrasound : Soft Tissue (specify location) 2017-02-02 PROCEDURES Procedure Date Ordered Result Body Site No Charge January 26, 2017 COMPREHEN METABOLIC PANEL January 26, 2017 VENIPUNCT, ROUTINE* January 26, 2017 LIPID PANEL January 26, 2017 IMMUNIZATIONS No Known Immunizations MEDICAL (GENERAL) HISTORY [...]
--- OUTSIDE RECORDS SUMMARY | 2018-05-26 08:30 | XMS REPORT ---
Author Author LASHAY BLACK [facility] Address [address] [place] [address] Care Team Providers Care Mechanical Inspector Name Role Phone LASHAY BLACK Unavailable PROBLEMS Type Condition ICD9-CM Code [id number] Code Onset Dates Condition Status SNOMED Code Problem Obstructive sleep apnea G47.33 Active 39015260 Problem Chronic obstructive pulmonary disease, unspecified COPD type J44.9 Active 20669782 Problem Irritable bowel syndrome with diarrhea K58.0 Active 716925069 Problem Migraine without aura and without status migrainosus, not intractable G43.009 Active 917625833 Problem Post concussion syndrome F07.81 Active 34795015 Problem Hypercholesterolemia E78.00 Active 28281540 Problem Venous vascular malformations Q27.9 Active 027592542 Problem Other headache syndrome G44.89 Active 534343819 Problem 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 244160316 Problem Anxiety F41.9 Active 21648663 Problem Cervicalgia M54.2 Active 49406949 Problem Unspecified asthma, uncomplicated J45.909 Active 510514318 Problem Other chronic pain G89.29 Active 69138030 Problem Hypertension I10 Active 86546343 Problem Idiopathic sleep related nonobstructive alveolar 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 Active 18680046 ALLERGIES No Information SOCIAL HISTORY Never Assessed PLAN OF CARE VITAL SIGNS MEDICATIONS Medication Instructions Dosage Frequency Start Date End Date Duration Status Hydrocodone-Acetaminophen 7.5-325 MG Orally 3 times a day 1 tablet as needed for pain 8h January, 28 days Active RESULTS No Results PROCEDURES [...]
--- OUTSIDE RECORDS SUMMARY | 2018-05-26 08:31 | XMS REPORT ---
Author Author LASHAY BLACK Organization [facility] Address [address] [place] [address] Care Team Providers Care Lithopress Operator Name Role Phone LASHAY BLACK Unavailable PROBLEMS Type Condition ICD9-CM Code [id number] Code Onset Dates Condition Status SNOMED Code Problem Obstructive sleep apnea G47.33 Active 54827805 Problem Chronic obstructive pulmonary disease, unspecified COPD type J44.9 Active 57627276 Problem Irritable bowel syndrome with diarrhea K58.0 Active 821726729 Problem Migraine without aura and without status migrainosus, not intractable G43.009 Active 969156503 Problem Post concussion syndrome F07.81 Active 35950780 Problem Hypercholesterolemia E78.00 Active 73694370 Problem Venous vascular malformations Q27.9 Active 289981250 Problem Other headache syndrome G44.89 Active 095546594 Problem 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 112038588 Problem Anxiety F41.9 Active 62923753 Problem Cervicalgia M54.2 Active 03024704 Problem Unspecified asthma, uncomplicated J45.909 Active 665797116 Problem Other chronic pain G89.29 Active 41752139 Problem Hypertension I10 Active 56091076 Problem Idiopathic sleep related nonobstructive alveolar 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 Active 97675744 ALLERGIES Substance Reaction Event Type Date Status Penicillin V Potassium Unknown Drug Allergy Feb, Active Cardura XL Unknown Drug Allergy Feb, Active ENCOUNTERS Encounter Location Date Diagnosis [facility] [address] [facility] [id number], [place] [address] Dec, [facility] [address] [facility] [id number], [place] [address] Nov, [facility] [address] [facility] [id number], [place] [address] Oct, Other chronic pain G89.29 [place] [id number] [place] [address] 80071- 8621 Sep, Other chronic pain G89.29 [facility] [address] [address]- [address] Sep, Other chronic pain G89.29 [facility] [id number] [place] [address] 73757- 6108 Aug, Other chronic pain G89.29 [facility] [address] [address] 1982 Jul, Other chronic pain G89.29 ; Encounter for immunization Z23 and Side effects of treatment, initial encounter T88.9XXA [place] [id number] [place] [address] 58162- 0109 Jul, Other chronic pain G89.29 [facility] [address] [address] Jul, [facility] [id number] [place] [address] 37454- 9319 Jul, Encounter for immunization Z23 [place] [address] [address]282- 8523 Jun, Hypertension I10 ; Other headache syndrome G44.89 ; Post concussion syndrome F07.81 and Other chronic pain G89.29 [place] [id number] [place] [address] 83572- 7452 May, [facility] [address] [address]37- 4652 May, Migraine without aura and without status migrainosus, not intractable G43.009 [place] [id number] [place] [address] 50272- 9460 May, 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 [place] [id number] [place] [address] 65659- 2664 May, Other chronic pain G89.29 [facility] [address] [address] Apr, Chronic obstructive pulmonary disease, unspecified COPD type J44.9 [facility] [id number] [place] [address] 06821- 8824 Apr, Chronic obstructive pulmonary disease, unspecified COPD type J44.9 [facility] [id number] [place] [address] 16781- 3615 Apr, Other chronic pain G89.29 ; Irritable bowel syndrome with diarrhea K58.0 and Hypercholesterolemia E78.00 [facility] [id number] [place] [address] 04458- 8114 Apr, Other chronic pain G89.29 [facility] [id number] [place] [address] 09035- 0269 Mar, Other chronic pain G89.29 [facility] [id number] [place] [address] 88525- 2252 Feb, 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 [facility] [id number] [place] [address] 02515- 6889 Feb, Other chronic pain G89.29 [facility] [id number] [place] [address] 16217- 4697 Feb, [facility] [id number] [place] [address] 04833- 1934 January, [facility] [id number] [place] [address] 12607- 4342 January, Other chronic pain G89.29 [facility] [id number] [place] [address] 57336- 5567 January, [facility] [id number] [place] [address] 32725- 3875 January, [facility] [id number] [place] [address] 82458- 6574 January, Other chronic pain G89.29 ; Irritable bowel syndrome with diarrhea K58.0 and Hypercholesterolemia E78.00 [facility] [address] 96332- 4614 January, Other chronic pain G89.29 ; Hypertension I10 ; Irritable bowel syndrome with diarrhea K58.0 ; Chronic obstructive pulmonary disease, unspecified COPD type J44.9 and Venous vascular malformations Q27.9 [facility] [address] [address]98 -[address] January, Acute otitis externa of right ear, unspecified type H60.501 [place] [address] 59410- 7513 Dec, Other chronic pain G89.29 [place] [address] 60863- 8100 Dec, Hypertension I10 [place] [address] 59347- 9006 Nov, Other chronic pain G89.29 [facility] [address] 28266- 2743 Oct, Other chronic pain G89.29 [place] [address] 74854- 3409 Sep, Other chronic pain G89.29 [place] [address] 25394- 9923 Sep, Hypertension I10 [facility] [address] 90793- 3809 Sep, Other chronic pain G89.29 [place] [address] 77379- 7248 Aug, Arthralgia, unspecified joint M25.50 ; Other chronic pain G89.29 ; Obstructive sleep apnea G47.33 and Idiopathic sleep related nonobstructive alveolar 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 [place] [id number] [place] [address] 29241- 9688 Aug, [facility] [id number] [place] [address] 79181- 5135 Aug, Other chronic pain G89.29 [facility] [id number] [place] [address] 08370- 7261 Jul, Chronic obstructive pulmonary disease, unspecified COPD type J44.9 and Diarrhea, unspecified type R19.7 [facility] [id number] [place] [address] 66082- 0993 Jul, Other chronic pain G89.29 [place] [address] 00770- 1360 Jul, Skin tags, multiple acquired L91.8 [facility] [id number] [place] [address] 66993- 4817 Jun, [facility] [address] 32516- 5391 Jun, Hypertension I10 [facility] [id number] [place] [address] 38573- 1187 May, Mouth pain K13.79 and Other chronic pain G89.29 [facility] [id number] [place] [address] 24212- 7859 May, [facility] [id number] [place] [address] 30515 2546 May, [facility] [id number] [place] [address] 52709 2549 May, Pain in right knee M25.561 and Other chronic pain G89.29 [facility] [id number] [place] [address] 98510- 3556 Apr, Cervicalgia M54.2 [facility] [id number] [place] [address] 28218- 5030 Mar, Cervicalgia M54.2 [place] [id number] [place] [address] 97209- 5256 27 Feb, 2016 Fever, unspecified fever cause R50.9 and Arthralgia, unspecified joint M25.50 [place] [id number] [place] [address] 54877- 3359 15 Feb, 2016 Hypertension I10 and Chronic pain syndrome G89.4 [place] [address] 15537- 1891 08 Feb, 2016 Cervicalgia M54.2 [place] [address] 10285- 3190 11 Jan, 2016 [place] [address] 15660- 5331 13 Dec, 2015 Chest pain R07.9 ; Family history of early CAD Z82.49 ; Hypertension I10 ; Fatigue R53.83 and History of IBS Z87.19 [place] [id number] [place] [address] 41765- 3196 Dec, [place] [id number] [place] [address] 48037- 5449 Nov, Allergic rhinitis J30.9 [place] [id number] [place] [address] 35624- 1211 Nov, [place] [id number] [place] [address] 73419- 9501 Nov, Hypertension I10 and Anxiety F41.9 [place] [id number] [place] [address] 46062- 2411 Nov, [place] [address] 21840- 9676 Oct, [place] [id number] [place] [address] 36104- 3654 10 Oct, 2015 Chest pain R07.9 ; Family history of early CAD Z82.49 ; Hypertension I10 ; Fatigue R53.83 and History of IBS Z87.19 [facility] [id number] [place] [address] 77107- 6876 Oct, [facility] [address] 38276- 4336 Oct, Chest pain, unspecified R07.9 [facility] [address] 41842- 3836 Oct, Chest pain, unspecified R07.9 ; Irritable bowel syndrome with diarrhea K58.0 ; Fatigue R53.83 and Degenerative disc disease, cervical M50.30 [facility] [address] 09194- 9123 Oct, [facility] [address] 33282- 2549 Oct, [facility] [address] 50670- 3560 Sep, [facility] [id number] [place] [address] 06385- 4293 Sep, [facility] [address] 64538- 0212 Aug, [facility] [id number] [place] [address] 49859- 4303 Aug, [facility] [address] 25762- 7851 Aug, [facility] [id number] [place] [address] 61643- 2875 Jul, Cervicalgia M54.2 ; Headache R51 ; Post-traumatic headache, unspecified, not intractable G44.309 and Unspecified intracranial injury without loss of consciousness, sequela S06.9X0S [facility] [id number] [place] [address] 09364- 9472 Jul, [facility] [address] [place] [address]- 6781 Jul, [facility] [address] [id number] [place] [address]- 1485 Jun, [facility] [address] [id number] 1327 Jun, Encounter for immunization Z23 [facility] [id number] [place] [address], [place] [address]- 4585 Jun, [facility] [place] [facility] [id number] [place] [address], [place] [address]- 2354 May, [facility] [address] [facility] [id number] [place] [address], [place] [address]- 6989 May, [facility] [address] [facility] [id number] [place] [address], [place] [address]- 1583 Apr, [facility] [id number] [place] [address], [place] [address]- 8686 Apr, [facility] [address] [facility] [id number], [place] [address]- 2755 Apr, [facility] [place] [facility] [id number] [place] [address], [place] [address]- 2100 Mar, [facility] [address] [facility] [id number], [place] [address]- 5457 Mar, [facility] [place] [facility] [id number] [place] [address]- 5199 Mar, [facility] [place] [facility] [address] [id number], [place] [address]- 1298 Feb, [facility] [place] [facility] [address] [facility] [id number] [place] [address]- 0432 Feb, [facility] [place] [facility] [address] [facility] [id number] [place] [address]- 9857 January, [facility] [place] [facility] [address] [facility] [id number], [place] [address]- 7397 January, [facility] [place] [facility] [address] [id number] [place] [address]- 4087 14 Dec, 2014 [facility] [place] [facility] [address] [id number] [place] [address]- 9509 Dec, [facility] [place] [facility] [address] [id number] [place] [address]- 9034 Nov, [facility] [place] [facility] [address] [id number] [place] [address]- 3759 Nov, [facility] [place] [facility] [address] [id number] [place] [address]- 1041 Nov, [facility] [place] [facility] [address] [id number] [place] [address]- 2838 Nov, [facility] [place] [facility] [address] [id number] [place] [address]- 8229 Nov, [facility] [place] [facility] [address] [id number] [place] [address]- 4150 Nov, [facility] [place] [facility] [address] [id number] [place] [address]- 0004 Nov, [facility] [place] [facility] [address] [id number] [place] [address]- 3052 Nov, [facility] [place] [facility] [address] [id number] [place] [address]- 2390 Nov, [facility] [place] [facility] [address] [id number] [place] [address]- 5896 Nov, [facility] [place] [facility] [address] [id number] [place] [address]- 9298 Nov, [facility] [place] [facility] [address] [id number] [place] [address]- 7491 Nov, [facility] [place] [facility] [address] [id number] [place] [address]- 6287 Nov, [facility] [place] [facility] [address] [id number], [place] [address]- 0763 Nov, [facility] [place] [facility] [address] [id number] [place] [address]- 1106 Oct, [facility] [place] [facility] [address] [id number] [place] [address]- 8988 Oct, [facility] [place] [facility] [address] [id number] [place] [address]- 6076 Oct, [facility] [place] [facility] [address] [id number] [place] [address]- 5170 Oct, [facility] [place] [facility] [address] [id number] [place] [address]- 9454 Sep, [facility] [place] [facility] [address] [id number] [place] [address]- 8265 Sep, [facility] [place] [facility] [address] [id number] [place] [address]- 9822 Sep, [facility] [place] [facility] [address] [id number] [place] [address]- 0643 Sep, [facility] [place] [facility] [address] [id number] [place] [address]- 2779 Sep, [facility] [place] [facility] [address] [facility] [id number] [place] [address]- 3083 Sep, [facility] [place] [facility] [address] [id number] [place] [address]- 8429 Sep, [facility] [place] [facility] [address] [id number], [place] [address]- 0812 Sep, [facility] [place] [facility] [address] [id number] [place] [address]- 7378 Aug, [facility] [place] [facility] [address] [id number] [place] [address]- 0328 Aug, [facility] [place] [facility] [address] [id number] [place] [address]- 1785 Aug, [facility] [place] [facility] [address] [id number] [place] [address]- 1198 Aug, [facility] [place] [facility] [address] [id number] [place] [address]- 5371 Aug, [facility] [place] [facility] [address] [id number] [place] [address]- 2611 Aug, [facility] [place] [facility] [address] [id number] [place] [address]- 4944 Aug, [facility] [place] [facility] [address] [id number] [place] [address]- 3963 Aug, [facility] [place] [facility] [address] [id number] [place] [address]- 2597 Jul, [facility] [place] [facility] [address] [id number] [place] [address]- 8104 Jul, [facility] [place] [facility] [address] [id number] [place] [address]- 8997 Jul, [facility] [place] [facility] [address] [id number] [place] [address]- 1228 Jul, [facility] [place] [facility] [address] [id number] [place] [address]- 3557 Jul, [facility] [place] [facility] [address] [id number] [place] [address]- 7013 Jul, [facility] [place] [facility] [address] [id number] [place] [address]- 9700 Jul, [facility] [place] [facility] [address] [id number] [place] [address]- 0090 Jul, [facility] [place] [facility] [address] [id number] [place] [address]- 8380 Jul, [facility] [place] [facility] [address] [id number] [place] [address]- 7125 Jul, [facility] [place] [facility] [address] [id number] [place] [address]- 2140 Jul, [facility] [place] [facility] [address] [id number] [place] 0770 Jun, [facility] [place] [facility] [address] [id number] [place] [address]- 4763 Jun, [facility] [place] [facility] [address] [id number] [place] 8295 Jun, [facility] [place] [facility] [address] [id number] [place] 6379 Jun, [facility] [place] [facility] [address] [id number] [place] [address]- 5817 Jun, [facility] [place] [facility] [address] [id number] [place] [address]- 6348 Jun, [facility] [place] [facility] [address] [id number] [place] [address]- 8566 Jun, [facility] [place] [facility] [address] [id number] [place] [address]- 6154 Jun, [facility] [place] [facility] [address] [id number] [place] [address]- 7963 Jun, [facility] [place] [facility] [address] [id number] [place] [address]- 1772 Jun, [facility] [place] [facility] [address] [id number], [place] [address]- 5632 Jun, [facility] [place] [facility] [address] [id number], [place] [address]- 3316 Jun, 2013 [facility] [place] [facility] [address] [id number] [place] 1152 Jun, [facility] [place] [facility] [address] [id number] 0144 Jun, [facility] [place] [facility] [address] [id number][place] 1665 Jun, [facility] [place] [facility] [address] [id number] [place] [address]- 9517 07 Jun, 2014 [facility] [place] [facility] [address] [id number] [place] [address]- 8020 07 Jun, 2014 [facility] [place] [facility] [address] [id number] [place] [address]- 1695 25 May, 2013 [facility] [place] [facility] [address] [id number] [place] [address]- 0183 11 May, 2013 [facility] [place] [facility] [address] [id number] [place] [address]- 6110 11 May, 2013 [facility] [place] [facility] [address] [id number] [place] [address]- 5634 04 May, 2014 [facility] [place] [facility] [address] [id number] [place] [address]- 7536 04 May, 2014 [facility] [place] [facility] [address] [id number] [place] [address]- 2380 May, [facility] [place] [facility] [address] [id number] [place] [address]- 3072 May, [facility] [place] [facility] [address] [id number] [place] [address]- 2315 Apr, [facility] [place] [facility] [address] [id number] [place] [address]- 6597 Apr, [facility] [place] [facility] [address] [id number] [place] [address]- 2068 15 Apr, 2014 [facility] [place] [facility] [address] [id number] [place] [address]- 7045 15 Apr, 2014 [facility] [place] [facility] [address] [id number] [place] [address]- 6406 14 Apr, 2014 [facility] [place] [facility] [address] [id number] [place] [address]- 9215 Apr, [facility] [place] [facility] [address] [id number] [place] [address]- 7343 Apr, [facility] [place] [facility] [address] [id number] [place] [address]- 2657 Apr, [facility] [place] [facility] [address] [id number] [place] [address]- 3596 Apr, [facility] [place] [facility] [address] [id number] [place] [address] Apr, [facility] [place] [facility] [address] [id number] [place] [address] Apr, [facility] [place] [facility] [address] [id number] [place] [address] Mar, [facility] [place] [facility] [address] [id number] [place] [address] Mar, [facility] [place] [facility] [address] [id number] [place] [address] Mar, [facility] [place] [facility] [address] [id number] [place] [address] Mar, [facility] [place] [facility] [address] [id number] [place] [address] Feb, [facility] [place] [facility] [address] [id number] [place] [address] Feb, [facility] [place] [facility] [address] [id number] [place] [address] Feb, [facility] [place] [facility] [address] [id number] [place] [address] Feb, [facility] [place] [facility] [address] [id number] [place] [address] Feb, [facility] [place] [facility] [address] [id number] [place] [address] Feb, [facility] [place] [facility] [address] [id number] [place] [address] Feb, [facility] [place] [facility] [address] [id number] [place] [address] Feb, [facility] [place] [facility] [address] [id number] [place] [address] January, [facility] [place] [facility] [address] [id number] [place] [address] January, [facility] [place] [facility] [address] [id number] [place] [address] January, [facility] [place] [facility] [address] [id number] [place] [address] January, [facility] [place] [facility] [address] [id number] [place] [address] Dec, [facility] [place] [facility] [address] [id number] [place] [address] Dec, [facility] [place] [facility] [address] [id number] [place] [address] Dec, [facility] [place] [facility] [address] [id number] [place] [address] Dec, [facility] [place] [facility] [address] [id number] [place] [address] Dec, [facility] [place] [facility] [address] [id number] [place] [address] Dec, [facility] [place] [facility] [address] [id number] [place] [address] Dec, [facility] [place] [facility] [address] [id number] [place] [address] Dec, [facility] [place] [facility] [address] [id number] [place] [address] Dec, [facility] [place] [facility] [address] [id number] [place] [address] Dec, [facility] [place] [facility] [address] [id number] [place] [address] Nov, [facility] [place] [facility] [address] [id number] [place] [address] Nov, [facility] [place] [facility] [address] [id number] [place] [address] Nov, [facility] [place] [facility] [address] [id number] [place] [address] Nov, [facility] [place] [facility] [address] [id number] [place] [address] Nov, [facility] [place] [facility] [address] [id number] [place] [address] Oct, [facility] [place] [facility] [address] [id number] [place] [address] Oct, [facility] [place] [facility] [address] [id number] [place] [address] Sep, [facility] [place] [facility] [address] [id number] [place] [address] Sep, [facility] [place] [facility] [address] [id number] [place] [address] Sep, [facility] [place] [facility] [address] [id number] [place] [address] Sep, [facility] [place] [facility] [address] [id number] [place] [address] Aug, [facility] [place] [facility] [address] [address] [id number] [place] [address] Aug, [facility] [place] [facility] [address] [id number] [place] [address] Aug, [facility] [place] [facility] [address] [id number] [place] [address] Aug, [facility] [place] [facility] [address] [id number] [place] [address] Aug, [facility] [place] [facility] [address] [id number] [place] [address] Aug, [facility] [place] [facility] [address] [id number] [place] [address] Aug, [facility] [place] [facility] [address] [id number] [place] [address] Aug, [facility] [place] [facility] [address] [facility] [id number] [place] [address] Jul, [facility] [place] [facility] [address] [id number] [place] [address] Jul, [facility] [place] [facility] [address] [id number] [place] [address] Jul, [facility] [place] [facility] [address] [id number] [place] [address] Jul, [facility] [place] [facility] [address] [facility] [id number] [place] [address] Jun, [facility] [place] [facility] [address] [id number], [place] [address] Jun, [facility] [place] [facility] [address] [id number], [place] [address] Jun, [facility] [place] [facility] [address] [facility] [id number], [place] [address] Jun, [facility] [place] [facility] [address] [id number], [place] [address] Jun, [facility] [place] [facility] [address] [id number], [place] [address] May, [facility] [place] [facility] [address] [id number], [place] [address] Apr, [facility] [place] [facility] [address] [id number], [place] [address] Apr, [facility] [place] [facility] [address] [facility] [id number], [place] [address] Mar, [facility] [place] [facility] [address] [id number] [place] [address] 07 Feb, 2013 [facility] [address] [id number] [place] [address] Feb, [facility] [address] [id number] [place] [address] January, [facility] [address] [id number] [place] [address] January, [facility] [address] [id number] [place] [address] January, [facility] [address] [id number] [place] [address] Nov, [facility] [address] [id number] [place] [address] Oct, [facility] [address] [id number] [place] [address] Oct, [facility] [address] [id number] [place] [address] Oct, [facility] [address] [id number] [place] [address] Sep, [facility] [address] [facility] [id number] [place] [address] Sep, [facility] [address] [id number] [place] [address] 5661 Aug, [facility] [address] [id number] [place] [address]42 Aug, [facility] [place] [facility] [address] [id number] [place] [address]757 Jul, [facility] [place] [facility] [address] [id number] [place] [address]46 Jul, [facility] [address] [id number] [place] [address] Jul, [facility] [place] [facility] [address] [id number] [place] [address] 7[address] Jul, [facility] [place] [facility] [address] [id number] [place] [address] 3658 Jul, [facility] [place] [facility] [address] [id number] [place] [address] Jul, [facility] [place] [facility] [address] [id number] [place] [address] 1437 Jul, [facility] [place] [facility] [address] [id number] [place] [address] 2434 Jul, [facility] [place] [facility] [address] [id number] [place] [address] 4935 Jul, [facility] [place] [facility] [address] [facility] [id number] [place] [address] 9373 Jul, [facility] [place] [facility] [address] [id number], [place] [address] Jul, [facility] [place] [facility] [address] [facility] [id number], [place] [address] Jul, [facility] [place] [facility] [address] [facility] [id number], [place] [address] Jul, [facility] [place] [facility] [address] [facility] [id number], [place] [address] 45[address] Jul, [facility] [place] [facility] [address] [id number], [place] [address] Jun, [facility] [place] [facility] [address] [id number], [place] [address] 9040 Jun, [facility] [place] [facility] [address] [id number], [place] [address] 8[address] Jun, [facility] [place] [facility] [address] [facility] [id number], [place] [address] 84[address] Jun, [facility] [place] [facility] [address] [id number], [place] [address] 7[address] Jun, [facility] [address] [id number] [place] [address] 6357 Jun, [facility] [place] [facility] [address] [id number] [place] [address] 1857 Jun, [facility] [place] [facility] [address] [facility] [id number] [place] [address]- 8106 Apr, [facility] [place] [facility] [address] [id number] [place] [address] 3830 Apr, [facility] [place] [facility] [address] [id number] [place] [address] 3173 Mar, [facility] [place] [facility] [address] [facility] [id number] [place] [address] 53[address] Feb, [facility] [id number] [address] Feb, [facility] [place] [facility] [address] [facility] [id number] [place] [address] 4[address] January, [facility] [address] [id number] [address] January, [facility] [place] [facility] [address] [facility] [id number] [place] [address]- 0377 Dec, [facility] [place] [facility] [address] [facility] [id number], [place] [address] 9945 Dec, [facility] [place] [facility] [address] [facility] [id number], [place] [address] 6685 Nov, [facility] [place] [facility] [address] [facility] [id number] [place] [address]- 5615 Oct, [facility] [place] [facility] [address] [facility] [id number], [place] [address]- 2445 Oct, [facility] [place] [facility] [address] [id number], [place] [address] 3452 Oct, [facility] [place] [facility] [address] [id number] [place] [address]- 3543 Sep, [facility] [place] [facility] [address] [id number] [place] [address]- 9683 14 Aug, 2011 [facility] [place] [facility] [address] [id number] [place] [address]- 4692 14 Aug, 2011 [facility] [place] [facility] [address] [id number] [place] [address]- 1199 Aug, [facility] [place] [facility] [address] [id number] [place] [address]- [address]39 05 Aug, 2011 [facility] [place] [facility] [address] [id number] [place] [address]- 4945 Aug, [facility] [place] [facility] [address] [id number] [place] [address]- 7263 Jul, [facility] [place] [facility] [address] [id number] [place] [address]- 8143 Jul, [facility] [place] [facility] [address] [id number] [place] [address]- 8254 Jul, [facility] [place] [facility] [address] [id number] [place] [address]- 7169 08 Jul, 2011 [facility] [place] [facility] [address] [id number] [place] [address]- 8237 29 Aug, 2010 [facility] [place] [facility] [address] [id number] [place] [address]- 7815 28 Aug, 2010 [facility] [place] [facility] [address] [id number] [place] [address]- 2534 13 Aug, 2010 [facility] [place] [facility] [address] [id number] [place] [address]- 7982 25 Jun, 2010 [facility] [place] [facility] [address] [id number] [place] [address]- 9412 18 Jun, 2010 [facility] [place] [facility] [address] [id number] [place] [address] Jun, [facility] [address] [facility] [id number] [place] [address] Jun, [facility] [address] [facility] [id number], [place] [address] 4[address] Jun, [facility] [address] [facility] [id number], [place] [address]- 7343 Jul, [facility] [address] [facility] [id number][place] [address] Jul, [facility] [address] [facility] [id number], [place] [address]- 7415 Jun, [facility] [address] [facility] [id number], [place] [address]- 4[address] Jun, IMMUNIZATIONS No Known Immunizations SOCIAL HISTORY Never Assessed REASON FOR VISIT possible cancer of foot - Here to follow up after seeing Dr. Navarrete and [facility] and there is a knot on left foot that they say is cancer. - Padmini RODRIGUEZ PLAN OF CARE Activity Details Follow Up prn Reason: VITAL SIGNS Height 68 in 2017-03-17 Weight 169.3 lbs 2017-03-17 Temperature 98.6 degrees Fahrenheit 2017-03-17 Heart Rate 76 bpm 2017-03-17 Respiratory Rate 18 2017-03-17 BMI 25.74 kg/m2 2017-03-17 Blood pressure systolic 145 mmHg 2017-03-17 Blood pressure diastolic 101 mmHg 2017-03-17 MEDICATIONS Medication Instructions Dosage Frequency Start Date End Date Duration Status Bentyl 20 MG Orally Four times a day 1 tablet 6h 30 Active Flonase Allergy Relief 50 MCG/ACT Nasally twice a day 1 spray in each nostril 12h Nov, Active Sertraline HCl 100 MG Orally Once a day 1 tablet 24h 90 Active cyclobenzaprine 10 mg 1 tablet by Oral route 3 times per day PRN Nov 30 Active Amitriptyline HCl 25 MG TAKE ONE TO TWO TABLETS BY MOUTH ONCE DAILY AT BEDTIME. 30 Active Carafate 1 GM TAKE ONE TABLET BY MOUTH FOUR TIMES DAILY BEFORE MEALS AND AT BEDTIME 30 Active Flomax 0.4 MG TAKE ONE CAPSULE BY MOUTH DAILY 30 Active Aspirin Adult Low Strength 81 MG Orally Once a day 1 tablet 24h Active Ondansetron HCl 8 MG TAKE ONE TABLET BY MOUTH THREE TIMES DAILY NEEDED FOR NAUSEA 6 Active Cortisporin 3.5-53762-4 Otic Three times a day 4 drops into affected ear 8h January, 10 days Active Spiriva HandiHaler 18 MCG Inhalation 2 times a day 1 capsule 12h January, Aug, 30 days Active Naproxen 500 MG TAKE ONE TABLET BY MOUTH TWICE DAILY WITH FOOD 30 Active Advair Diskus 250 mcg-50 mcg 1 puffs 2 times per day Apr, Active Propranolol HCl ER 120 MG Orally Once a day 1 capsule 24h Jun, 90 days Active ProAir HFA 108 (90 Base) MCG/ACT Inhalation every 4 hrs 2 puffs as needed 4h Jul, Active Hydrocodone-Acetaminophen 7.5-325 MG Orally 3 times a day 1 tablet as needed for pain 8h 20 Feb, 2017 28 days Active RESULTS No Results PROCEDURES [...]
--- OUTSIDE RECORDS SUMMARY | 2018-05-26 08:32 | XMS REPORT ---
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 955325808 Problem Hypercholesterolemia E78.00 Active 27460420 Problem Venous vascular malformations Q27.9 Active 696681041 Problem Idiopathic sleep related nonobstructive alveolar 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 Active 43525467 Problem Irritable bowel syndrome with diarrhea K58.0 Active 341480124 Problem Chronic obstructive pulmonary disease, unspecified COPD type J44.9 Active 90775033 ALLERGIES Substance Reaction Event Type Date Status Penicillin V Potassium Unknown Drug Allergy Aug, Active Cardura XL Unknown Drug Allergy Aug, Active SOCIAL HISTORY No smoking Hx information available PLAN OF CARE Activity Details Follow Up 4 Months Reason:chronic pain VITAL SIGNS Height 68 in 2016-08-31 Weight 178.2 lbs 2016-08-31 Temperature 97.9 degrees Fahrenheit 2016-08-31 Heart Rate 72 bpm 2016-08-31 Respiratory Rate 18 2016-08-31 BMI 27.09 kg/m2 2016-08-31 Blood pressure systolic 136 mmHg 2016-08-31 Blood pressure diastolic 90 mmHg 2016-08-31 MEDICATIONS Medication Instructions Dosage Frequency Start Date End Date Duration Status cyclobenzaprine 10 mg 1 tablet by Oral route 3 times per day PRN Nov 30 Active Amitriptyline HCl 25 MG TAKE ONE TO TWO TABLETS BY MOUTH ONCE DAILY AT BEDTIME. 30 Active Flomax 0.4 MG TAKE ONE CAPSULE BY MOUTH DAILY 30 Active Advair Diskus 250 mcg-50 mcg 1 puffs 2 times per day Apr, Active ProAir HFA 108 (90 Base) MCG/ACT Inhalation every 4 hrs 2 puffs as needed 4h Jul, Active Hydrocodone-Acetaminophen 7.5-325 MG Orally 3 times a day 1 tablet as needed for pain 8h Nov, 28 days Active Avodart 0.5 MG TAKE ONE TABLET BY MOUTH ONCE DAILY 30 Active Aspirin Adult Low Strength 81 MG Orally Once a day 1 tablet 24h Active Sertraline HCl 100 MG Orally Once a day 1 tablet 24h 90 Active Naproxen 500 MG TAKE ONE TABLET BY MOUTH TWICE DAILY WITH FOOD 30 Active Propranolol HCl CR 120 MG Orally Once a day 1 capsule 24h Jun, 90 days Active RESULTS No Results PROCEDURES Procedure Date Ordered Related Diagnosis Body Site Office Visit, Est Pt., Level 3 Aug 31, 2016 IMMUNIZATIONS No Known Immunizations
[2018-05-26 08:44] LABS: BASOPHILS % (AUTO) 0 % (0-10); EOSINOPHILS # (AUTO) 0.1 10^3/uL (0.0-0.3); EOSINOPHILS % (AUTO) 2 % (0-10); HEMATOCRIT 47 % (40-54); HEMOGLOBIN 16.1 G/DL (13.3-17.7); LYMPHOCYTES % (AUTO) 13 % (12-44); MEAN CORPUSCULAR HEMOGLOBIN 31 PG (25-34); MEAN CORPUSCULAR HGB CONC 35 G/DL (32-36); MEAN CORPUSCULAR VOLUME 89 FL (80-99); MEAN PLATELET VOLUME 9.7 FL (7.4-10.4); MONOCYTES # (AUTO) 0.6 X 10^3 (0.0-1.0); MONOCYTES % (AUTO) 7 % (0-12); NEUTROPHILS # (AUTO) 6.1 X 10^3 (1.8-7.8); NEUTROPHILS % (AUTO) 78 % (42-75); PLATELET COUNT 236 10^3/uL (130-400); RED BLOOD COUNT 5.23 10^6/uL (4.35-5.85); RED CELL DISTRIBUTION WIDTH 13.4 % (10.0-14.5); WHITE BLOOD COUNT 7.8 10^3/uL (4.3-11.0)
[2018-05-26 08:58] LABS: PROTHROMBIN TIME PATIENT 13.3 SEC (12.2-14.7)
--- NOTE | 2018-05-26 09:01 | Diagnostic Imaging Report ---
INDICATION: Chest pain x3 days. Frontal chest obtained at 8:40 a.m. and compared to 06/09/2016. FINDINGS: Heart and mediastinal silhouette are normal in appearance. The lungs are clear. There is no pneumothorax or pleural fluid. IMPRESSION: Negative chest, no change from prior study. Dictated by: Dictated on workstation # [id number]
[2018-05-26 09:12] LABS: ALANINE AMINOTRANSFERASE 23 U/L (0-55); ALBUMIN 4.3 GM/DL (3.2-4.5); ALKALINE PHOSPHATASE 60 U/L (40-136); AMYLASE 65 U/L (25-125); BILIRUBIN,TOTAL 0.9 MG/DL (0.1-1.0); BUN/CREATININE RATIO 12; CALCIUM 9.4 MG/DL (8.5-10.1); CARBON DIOXIDE 22 MMOL/L (21-32); CHLORIDE 105 MMOL/L (98-107); CREATINE KINASE 66 U/L (30-200); CREATININE SERUM 0.94 MG/DL (0.60-1.30); GFR ESTIMATED > 60; GLUCOSE 102 MG/DL (70-105); LIPASE 7 U/L (8-78); MAGNESIUM 2.3 MG/DL (1.8-2.4); POTASSIUM 3.9 MMOL/L (3.6-5.0); SODIUM 138 MMOL/L (135-145); TOTAL PROTEIN 6.9 GM/DL (6.4-8.2)
[2018-05-26] MEDS ORDERED: NITROGLYCERIN 2% OINT 1 GM UNIT DOSE PACKET TOP ONE (09:15)
[2018-05-26] MEDS ORDERED: morphine INJ 10 MG/ML 1ML (SYR OR VIAL) IVP STA (09:15)
[2018-05-26 09:22] LABS: CREATINE KINASE MB 4.6 NG/ML (<6.6); MYOGLOBIN SERUM 42.9 NG/ML (10.0-92.0)
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
[2018-05-26] MEDS ORDERED: ENOXAPARIN 80 MG/0.8 ML (LOVENOX) SYR SC ONE (09:45)
[2018-05-26 11:09] VITALS: BP 119/81
== END 2018-05-26 10:59 | disposition short-term general hospital (02) ==
LOC: EDUNIT# 08:10 → ER 08:12
DX: R07.89 Other chest pain (principal); I10 Essential (primary) hypertension; J44.9 Chronic obstructive pulmonary disease, unspecified; G47.30 Sleep apnea, unspecified; E78.00 Pure hypercholesterolemia, unspecified; G43.909 Migraine, unspecified, not intractable, without status migrainosus; K21.9 Gastro-esophageal reflux disease without esophagitis; Z87.19 Personal history of other diseases of the digestive system; Z88.0 Allergy status to penicillin; Z79.51 Long term (current) use of inhaled steroids; Z87.891 Personal history of nicotine dependence; Z98.890 Other specified postprocedural states; Z85.9 Personal history of malignant neoplasm, unspecified
CPT/HCPCS: 36415; 71045; 80053; 82150; 82550; 82553; 83690; 83735; 83874; 83880; 84484; 85025; 85610; 85730; 93005; 93041; 96372; 96374

== ENCOUNTER 2018-12-19 15:18 | Observation (INO) | payer OTHER ==
[~2018-12-19] VITALS: Ht 172.7 cm; Wt 76.5 kg
[2018-12-19] VITALS (7 sets, daily range): BP systolic 126–172; BP diastolic 102–125
[2018-12-19] MEDS ORDERED: fentaNYL INJECTION 100 MCG/2 ML AMP ONE (15:25)
[2018-12-19] MEDS ORDERED: fentaNYL INJECTION 100 MCG/2 ML AMP IVP STA (15:26)
[2018-12-19 15:33] LABS: BASOPHILS # (AUTO) 0.1 10^3/uL (0.0-0.1); BASOPHILS % (AUTO) 1 % (0-10); EOSINOPHILS # (AUTO) 0.2 10^3/uL (0.0-0.3); EOSINOPHILS % (AUTO) 3 % (0-10); HEMATOCRIT 47 % (40-54); HEMOGLOBIN 16.1 G/DL (13.3-17.7); LYMPHOCYTES # (AUTO) 1.1 X 10^3 (1.0-4.0); LYMPHOCYTES % (AUTO) 13 % (12-44); MEAN CORPUSCULAR HEMOGLOBIN 31 PG (25-34); MEAN CORPUSCULAR HGB CONC 34 G/DL (32-36); MEAN CORPUSCULAR VOLUME 89 FL (80-99); MEAN PLATELET VOLUME 9.1 FL (7.4-10.4); MONOCYTES # (AUTO) 0.4 X 10^3 (0.0-1.0); MONOCYTES % (AUTO) 5 % (0-12); NEUTROPHILS # (AUTO) 6.8 X 10^3 (1.8-7.8); NEUTROPHILS % (AUTO) 79 % (42-75); PLATELET COUNT 246 10^3/uL (130-400); WHITE BLOOD COUNT 8.6 10^3/uL (4.3-11.0)
[2018-12-19] MEDS ORDERED: NS IV 1000 ML 1,000 ML IV ONE (15:47)
--- NOTE | 2018-12-19 15:53 | NUR ---
TO ROOM REPORTS PAIN BETTR BUT NOT GONE.
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
[2018-12-19 16:02] LABS: ALBUMIN 4.5 GM/DL (3.2-4.5); BILIRUBIN,TOTAL 0.4 MG/DL (0.1-1.0); CALCIUM 9.8 MG/DL (8.5-10.1); CREATININE SERUM 1.91 MG/DL (0.60-1.30); POTASSIUM 4.7 MMOL/L (3.6-5.0); TOTAL PROTEIN 7.5 GM/DL (6.4-8.2)
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
--- NOTE | 2018-12-19 16:05 | NUR ---
CAME TO DESK REPORTS PAIN COMING BACK NOTIFIED MEDS ORDERED
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
[2018-12-19] MEDS ORDERED: HYDROmorphone 2 MG/ML VIAL (DILAUDID) IV ONE ×2 (16:15→17:15)
--- NOTE | 2018-12-19 16:34 | NUR ---
TO CT PER W/C
--- NOTE | 2018-12-19 16:57 | NUR ---
BACK FROM CT
[2018-12-19] MEDS ORDERED: HYDROmorphone 2 MG/ML VIAL (DILAUDID) IV PRN (17:15)
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
--- NOTE | 2018-12-19 17:53 | NUR ---
SA02 89 % PATIENT PLACED ON 2L 02 DR NOTIFIED
--- NOTE | 2018-12-19 18:19 | NUR ---
DR CASTLE TALKED TO HOUSE SUP ABOUT GETTING ICU BED.
--- NOTE | 2018-12-19 18:32 | NUR ---
ICU BED 7 GIVEN PATIENT UNABLE TO GO TO ICU INTILL AFTER SHIFT CHANGE.
--- NOTE | 2018-12-19 18:36 | NUR ---
DR TO ROOM TO TALK WITH FAMILY
--- OUTSIDE RECORDS SUMMARY | 2018-12-19 18:38 | XMS REPORT | Clinical Summary ---
Author Author [facility] Organization [facility] Address Unknown Phone Unavailable Care Team Providers Care Viscosity Inspector Name Role Phone Shaina Fabian SCHOOL MANAGER PCP Source Comments Some departments are not documenting in the electronic medical record. If you do not see the information that you expected, contact Release of Information in the Health Information Management department at [phone] for further assistance in locating additional records.[facility] Allergies Not on File Medications End Date Status Medication Sig Dispensed Refills Start Date Active amitriptyline (ELAVIL) 25 TAKE 1 TO 2 0 mg tablet TABLETS BY 7 MOUTH ONCE DAILY AT BEDTIME Active amLODIPine (NORVASC) 10 TAKE ONE 1 mg tablet TABLET BY 7 MOUTH ONCE DAILY Active dicyclomine (BENTYL) 20 TAKE ONE 0 mg tablet TABLET BY 7 MOUTH FOUR TIMES DAILY Active fluticasone (FLONASE) 50 USE ONE SPRAY 0 mcg/actuation nasal spray IN EACH 7 NOSTRIL TWICE DAILY Active HYDROcodone/acetaminophen TAKE ONE 0 (NORCO) 7.5/325 mg tablet TABLET BY 7 MOUTH NEEDED FOR PAIN 3 TIMES A DAY Active pantoprazole DR TAKE ONE 1 (PROTONIX) 40 mg tablet TABLET BY 7 MOUTH ONCE DAILY Active INDERAL LA 120 mg capsule TAKE ONE 0 CAPSULE BY 7 MOUTH ONCE DAILY Active INDERAL LA 160 mg Cs24 TAKE ONE capsule CAPSULE BY 7 MOUTH ONCE DAILY Active CARAFATE 1 gram tablet TAKE ONE 1 TABLET BY 7 MOUTH FOUR TIMES DAILY BEFORE MEALS AND AT BEDTIME Active trimethoprim/sulfamethoxa TAKE 1 TABLET 0 zole (BACTRIM DS) 160/800 BY MOUTH 7 mg tablet TWICE DAILY FOR 7 DAYS Active sumatriptan succinate TAKE ONE 3 (IMITREX) 100 mg tablet TABLET BY 7 MOUTH TWICE DAILY NEEDED Active FLOMAX 0.4 mg capsule TAKE ONE 0 CAPSULE BY 7 MOUTH ONCE DAILY AFTER THE SAME MEALS EACH DAY Active SPIRIVA WITH HANDIHALER INHALE 6 18 mcg capsule for CONTENTS OF 7 inhaler ONE CAPSULE BY MOUTH ONCE DAILY (TWO INHALATIONS PER ONE CAPSULE) Active Problems Problem Noted Date Melanoma 07/15/2017 Overview: Added automatically from request for surgery [id number] 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 [...] be done, he can get them at [facility] since they have some sort of arrangement [...] have been able to get [facility] somehow and can get whatever we need through that hospital. So Ирина, our CNC, will arrange for this to be completed. We will also get routine labs as well. Once the imaging is available for review, I plan on discussing his case at the [facility]. RTC planned in 2 weeks after completion of imaging. Social History Date Tobacco Use Types Packs/Day Years Used Never Assessed Sex Assigned at Date Recorded Not on file Industry Job Start Date Occupation Not on file Not on file Not on file Travel End Travel History Travel Start No recent travel history available. Last Filed Vital Signs Time Taken Vital Sign Reading 07/01/2017 9:44 AM CDT Blood Pressure 138/90 07/01/2017 9:44 AM CDT Pulse 65 07/01/2017 9:44 AM CDT Temperature 36.9 C (98.5 F) 07/01/2017 9:44 AM CDT Respiratory Rate 16 07/01/2017 9:44 AM CDT Oxygen Saturation 99% - Inhaled Oxygen - Concentration 07/01/2017 9:44 AM CDT Weight 75.8 kg (167 lb 3.2 oz) 07/01/2017 9:44 AM CDT Height 177.8 cm (5' 10") 07/01/2017 9:44 AM CDT Body Mass Index 23.99 Plan of Treatment Health Maintenance Due Date Last Done Comments HEPATITIS C SCREENING 1952 PHYSICAL (COMPREHENSIVE) 1959 EXAM DTAP/TDAP VACCINES (1 - 1970 Tdap) COLORECTAL CANCER 2002 SCREENING SHINGLES RECOMBINANT 2002 VACCINE (1 of 2) PNEUMONIA (PCV13/PPSV23) 2017 VACCINES (1 of 2 - PCV13) INFLUENZA VACCINE 04/19/2018 07/23/2008 Results Not on filefrom Last 3 Months Advance Directives Patient has advance care planning documents on file. For more information, please contact: [address] [place] [address]
--- OUTSIDE RECORDS SUMMARY | 2018-12-19 18:39 | XMS REPORT ---
Author Author LASHAY BLACK Organization [facility] Address [address] [place] [address] Care Team Providers Care Rn Referral Name Role Phone LASHAY BLACK Unavailable PROBLEMS Type Condition ICD9-CM Code KAM45-CX Code Onset Dates Condition Status SNOMED Code Problem Irritable bowel syndrome with diarrhea K58.0 Active 781092298 Problem Venous vascular malformations Q27.9 Active 604605413 Problem Chronic obstructive pulmonary disease, unspecified COPD type J44.9 Active 99583558 Problem Primary insomnia F51.01 Active 6692479 Problem Migraine without aura and without status migrainosus, not intractable G43.009 Active 974717303 Problem 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 626615176 Problem Hypercholesterolemia E78.00 Active 90113285 Problem Post concussion syndrome F07.81 Active 91328280 Problem Other headache syndrome G44.89 Active 619143778 Problem Decreased renal function N28.9 Active 71888058 Problem Unspecified asthma, uncomplicated J45.909 Active 133173401 Problem Cervicalgia M54.2 Active 15404078 Problem Other chronic pain G89.29 Active 19701301 Problem Hypertension I10 Active 82943435 Problem Idiopathic sleep related nonobstructive alveolar 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 Active 09078873 Problem Anxiety F41.9 Active 52741311 Problem Obstructive sleep apnea G47.33 Active 71145901 ALLERGIES Substance Reaction Event Type Date Status Prevagen Unknown Drug Allergy Aug, Active Penicillin V Potassium Unknown Drug Allergy Aug, Active Cardura XL Unknown Drug Allergy Aug, Active ENCOUNTERS Encounter Location Date Diagnosis [facility] [address] [id number] [address] Aug, Irritable bowel syndrome with diarrhea K58.0 ; Other chronic pain G89.29 and Primary insomnia F51.01 [facility] [id number] [place] [address] 73645- 3483 Aug, Other chronic pain G89.29 [facility] [id number] [place] [address] 63540- 2629 Jul, Other chronic pain G89.29 [facility] [id number] [place] [address] 15498- 2193 Jun, Encounter for immunization Z23 [facility] [address] [address]149- 3788 Jun, Other chronic pain G89.29 [facility] [id number] [place] [address] 44513- 2885 Apr, Other chronic pain G89.29 [place] [facility] [id number] [place] [address] 69362- 7771 Mar, Other chronic pain G89.29 [facility] [id number] [place] [address] 39765- 1657 Mar, Decreased renal function N28.9 [facility] [id number] [place] [address] 27632- 6226 Feb, Xyphoidalgia R07.89 [place] [id number] [place] [address] 57618- 9282 January, Arthralgia, unspecified joint M25.50 and Other chronic pain G89.29 [facility] [id number] [place] [address] 38821- 6157 Dec, Drug-induced constipation K59.03 ; Fatigue, unspecified type R53.83 ; Forgetfulness R68.89 ; Other chronic pain G89.29 and Primary insomnia F51.01 [facility] [id number] [place] [address] 09624- 8062 Nov, [facility] [id number] [place] [address] 21882- 6552 Oct, Other chronic pain G89.29 [facility] [address] [place] [address] 5994 Sep, Other chronic pain G89.29 [facility] [id number] [place] [address] 85006- 7656 Sep, Other chronic pain G89.29 [place] [id number] [place] [address] 94910- 0874 Aug, Other chronic pain G89.29 [place] [address] 31029- 5974 Jul, Other chronic pain G89.29 ; Encounter for immunization Z23 and Side effects of treatment, initial encounter T88.9XXA [place] [address] 20918- 7997 Jul, Other chronic pain G89.29 [facility] [id number] [place] [address] 89168 -0889 Jul, [facility] [address] 60711- 1582 Jul, Encounter for immunization Z23 [place] [address] 67985- 5259 Jun, Hypertension I10 ; Other headache syndrome G44.89 ; Post concussion syndrome F07.81 and Other chronic pain G89.29 [place] [id number] [place] [address] 94843- 9626 May, [facility] [address] 13014- 5562 May, Migraine without aura and without status migrainosus, not intractable G43.009 [place] [id number] [place] [address] 79266- 4235 22 May, 2017 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 [place] [id number] [place] [address] 13589- 8936 12 May, 2017 Other chronic pain G89.29 [facility] [address] [address] Apr, Chronic obstructive pulmonary disease, unspecified COPD type J44.9 [facility] [id number] [place] [address] 59731- 6139 Apr, Chronic obstructive pulmonary disease, unspecified COPD type J44.9 [facility] [id number] [place] [address] 16186- 1543 Apr, Other chronic pain G89.29 ; Irritable bowel syndrome with diarrhea K58.0 and Hypercholesterolemia E78.00 [facility] [id number] [place] [address] 39561- 9582 Apr, Other chronic pain G89.29 [facility] [id number] [place] [address] 13157- 3623 Mar, Other chronic pain G89.29 [facility] [id number] [place] [address] 27181- 5430 Feb, 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 [facility] [id number] [place] [address] 13045- 2524 Feb, Other chronic pain G89.29 [facility] [id number] [place] [address] 48632- 1053 Feb, [facility] [id number] [place] [address] 18348- 0440 January, [facility] [id number] [place] [address] 17152- 1508 January, Other chronic pain G89.29 [facility] [address] [id number] [address]- 8294 January, [facility] [id number] [place] [address] 62620- 0856 January, [facility] [address] [address] 6570 January, Other chronic pain G89.29 ; Irritable bowel syndrome with diarrhea K58.0 and Hypercholesterolemia E78.00 [facility] [id number] [place] [address] 95008- 4528 January, Other chronic pain G89.29 ; Hypertension I10 ; Irritable bowel syndrome with diarrhea K58.0 ; Chronic obstructive pulmonary disease, unspecified COPD type J44.9 and Venous vascular malformations Q27.9 [facility] [address] 00988 -0351 January, Acute otitis externa of right ear, unspecified type H60.501 [place] [address] 70383- 9261 Dec, Other chronic pain G89.29 [place] [address] 95518- 2115 Dec, Hypertension I10 [place] [address] 19227- 0365 Nov, Other chronic pain G89.29 [facility] [address] 44379- 2934 Oct, Other chronic pain G89.29 [place] [address] 14270- 3714 Sep, Other chronic pain G89.29 [place] [id number] [place] [address] 36093- 5964 Sep, Hypertension I10 [facility] [id number] [place] [address] 64855- 2771 Sep, Other chronic pain G89.29 [place] [address] 00999- 0914 Aug, Arthralgia, unspecified joint M25.50 ; Other chronic pain G89.29 ; Obstructive sleep apnea G47.33 and Idiopathic sleep related nonobstructive alveolar 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 [place] [address] 98168- 7808 Aug, [facility] [id number] [place] [address] 27458- 9318 Aug, Other chronic pain G89.29 [facility] [id number] [place] [address] 91858- 2801 Jul, Chronic obstructive pulmonary disease, unspecified COPD type J44.9 and Diarrhea, unspecified type R19.7 [facility] [id number] [place] [address] 86771- 1187 Jul, Other chronic pain G89.29 [place] [id number] [place] [address] 04486- 3116 Jul, Skin tags, multiple acquired L91.8 [place] [id number] [place] [address] 50331- 9206 Jun, [facility] [address] 56726- 5492 Jun, Hypertension I10 [facility] [id number] [place] [address] 28233- 8851 May, Mouth pain K13.79 and Other chronic pain G89.29 [facility] [id number] [place] [address] 15076- 2737 May, [facility] [id number] [place] [address] 62874- 2951 May, [facility] [id number] [place] [address] 21352- 2544 May, Pain in right knee M25.561 and Other chronic pain G89.29 [facility] [id number] [place] [address] 40122- 7416 Apr, Cervicalgia M54.2 [facility] [id number] [place] [address] 39584- 9995 Mar, Cervicalgia M54.2 [facility] [id number] [place] [address] 74902- 2358 27 Feb, 2016 Fever, unspecified fever cause R50.9 and Arthralgia, unspecified joint M25.50 [place] [id number] [place] [address] 95655- 2917 15 Feb, 2016 Hypertension I10 and Chronic pain syndrome G89.[address] 48457- 1342 08 Feb, 2016 Cervicalgia M54.2 [place] [address] 25737- 4142 January, [address] 19899- 5806 13 Dec, 2015 Chest pain R07.9 ; Family history of early CAD Z82.49 ; Hypertension I10 ; Fatigue R53.83 and History of IBS Z87.19 [id number] [place] [address] 40535- 0419 Dec, [place] [id number] [place] [address] 81157- 8071 Nov, Allergic rhinitis J30.9 [place] [id number] [place] [address] 54659- 1925 Nov, [place] [id number] [place] [address] 23242- 5614 Nov, Hypertension I10 and Anxiety F41.9 [place] [id number] [place] [address] 65929- 6173 Nov, [place] [address] 78552- 4725 Oct, [place] [address] 92722- 6899 10 Oct, 2015 Chest pain R07.9 ; Family history of early CAD Z82.49 ; Hypertension I10 ; Fatigue R53.83 and History of IBS Z87.19 [facility] [id number] [place] [address] 26605- 7076 Oct, [facility] [address] 92882- 2956 Oct, Chest pain, unspecified R07.9 [facility] [id number] [place] [address] 56786- 2476 Oct, Chest pain, unspecified R07.9 ; Irritable bowel syndrome with diarrhea K58.0 ; Fatigue R53.83 and Degenerative disc disease, cervical M50.30 [place] [address] 89648- 0706 Oct, [facility] [address] 81591- 1125 Oct, [facility] [address] 44775- 5110 Sep, [facility] [id number] [place] [address] 23987- 5479 Sep, [facility] [address] 82927- 2709 Aug, [facility] [id number] [place] [address] 56765- 0104 Aug, [facility] [id number] [place] [address] 66525- 5643 Aug, [facility] [id number] [place] [address] 19847- 2544 Jul, Cervicalgia M54.2 ; Headache R51 ; Post-traumatic headache, unspecified, not intractable G44.309 and Unspecified intracranial injury without loss of consciousness, sequela S06.9X0S [facility] [id number] [place] [address] 52658- 2136 Jul, [facility] [address] 48456- 1877 Jul, [facility] [address] [id number] [place] [address]- 7838 Jun, [facility] [address] [facility] [id number] [address]- 7964 Jun, Encounter for immunization Z23 [facility] [address] [facility] [id number] [place] [address]- 0735 Jun, [facility] [place] [facility] [address] [id number] [place] [address] 75677- 3207 May, [facility] [place] [facility] [address] [id number] [place] [address], [place] [address]- 9591 May, [facility] [place] [facility] [address] [facility] [id number] [place] [address] 78748- 4334 Apr, [facility] [id number] [place] [address] 18017- 6919 Apr, [facility] [place] [facility] [address] [id number] [address]- 0788 Apr, [facility] [place] [facility] [address] [address]- 4652 Mar, [facility] [place] [facility] [address] [facility] [id number], [place] [address]- 0037 Mar, [facility] [place] [facility] [address] [id number] [address]- 4525 Mar, [facility] [place] [facility] [address] [facility] [id number], [place] [address]- 7361 Feb, [facility] [place] [facility] [address] [id number], [place] [address]- 0721 Feb, [facility] [place] [facility] [address] [facility] [id number] 4952 January, [facility] [place] [facility] [id number] [place] [address]- 4754 January, [facility] [place] [facility] [address] [id number] [place] [address]- 1713 14 Dec, 2014 [facility] [place] [facility] [address] [id number] [place] [address]- 6657 13 Dec, 2014 [facility] [place] [facility] [address] [id number] [place] [address]- 0624 26 Nov, 2014 [facility] [place] [facility] [address] [id number] [place] [address]- 3116 Nov, [facility] [place] [facility] [address] [id number] [place] [address]- 8338 Nov, [facility] [place] [facility] [address] [id number] [place] [address]- 8997 Nov, [facility] [place] [facility] [address] [id number] [place] [address]- 0773 Nov, [facility] [place] [facility] [address] [id number] [place] [address]- 7151 Nov, [facility] [place] [facility] [address] [id number] [place] [address]- 8101 Nov, [facility] [place] [facility] [address] [id number] [place] [address]- 2894 Nov, [facility] [place] [facility] [address] [id number] [place] [address]- 2706 Nov, [facility] [place] [facility] [address] [id number] [place] [address]- 1645 Nov, [facility] [place] [facility] [address] [id number] [place] [address]- 1684 Nov, [facility] [place] [facility] [address] [id number] [place] [address]- 2320 Nov, [facility] [place] [facility] [address] [id number] [place] [address]- 8146 Nov, [facility] [place] [facility] [address] [id number] [place] [address]- 5109 Nov, [facility] [place] [facility] [address] [id number] [place] [address]- 1210 Oct, [facility] [place] [facility] [address] [id number] [place] [address]- 1621 Oct, [facility] [place] [facility] [address] [id number] [place] [address]- 9738 Oct, [facility] [place] [facility] [address] [id number] [place] [address]- 5271 Oct, [facility] [place] [facility] [address] [id number] [place] [address]- 7377 Sep, [facility] [place] [facility] [address] [id number] [place] [address]- 5089 Sep, [facility] [place] [facility] [address] [id number] [place] [address]- 0525 Sep, [facility] [place] [facility] [address] [id number] [place] [address]- 5414 Sep, [facility] [place] [facility] [address] [id number] [place] [address]- 4075 Sep, [facility] [place] [facility] [address] [id number] [place] [address]- 2904 Sep, [facility] [place] [facility] [address] [id number] [place] [address]- 4521 Sep, [facility] [place] [facility] [address] [id number] [place] [address]- 8113 Sep, [facility] [place] [facility] [address] [id number] [place] [address]- 2816 Aug, [facility] [place] [facility] [address] [id number] [place] 4345 Aug, [facility] [place] [facility] [address] [id number] [place] [address]- 9669 Aug, [facility] [place] [facility] [address] [id number] [place] [address]- 7097 Aug, [facility] [place] [facility] [address] [id number] [place] [address]- 8647 Aug, [facility] [place] [facility] [address] [id number] [place] [address]- 9876 Aug, [facility] [place] [facility] [address] [id number] [place] [address]- 2064 Aug, [facility] [place] [facility] [address] [id number] [place] [address]- 2422 Aug, [facility] [place] [facility] [address] [id number] [place] [address]- 1931 Jul, [facility] [place] [facility] [address] [id number] [place] [address]- 9587 Jul, [facility] [place] [facility] [address] [id number] [place] [address]- 2870 Jul, [facility] [place] [facility] [address] [id number] [place] [address]- 1416 Jul, [facility] [place] [facility] [address] [id number] [place] [address]- 9595 Jul, [facility] [place] [facility] [address] [id number] [place] [address]- 8617 Jul, [facility] [place] [facility] [address] [id number] [place] [address]- 9309 Jul, [facility] [place] [facility] [address] [id number] [place] [address]- 2345 Jul, [facility] [place] [facility] [address] [id number] [place] [address]- 1329 Jul, [facility] [place] [facility] [address] [id number] [place] [address]- 1534 Jul, [facility] [place] [facility] [address] [id number] [place] [address]- 8304 Jul, [facility] [place] [facility] [address] [id number] [place] [address]- 8852 Jun, 2013 [facility] [place] [facility] [address] [id number] [place] [address]- 9332 Jun, [facility] [place] [facility] [address] [id number] [place] 5336 Jun, [facility] [place] [facility] [address] [id number] [place] [address]- 7674 Jun, [facility] [place] [facility] [address] [id number] [place] [address]- 4453 Jun, [facility] [place] [facility] [address] [id number] [place] [address]- 5095 Jun, [facility] [place] [facility] [address] [id number] [place] [address]- 3836 Jun, [facility] [place] [facility] [address] [id number] [place] [address]- 7310 Jun, [facility] [place] [facility] [address] [id number] [place] [address]- 4434 Jun, [facility] [place] [facility] [address] [id number] [place] [address]- 1556 Jun, [facility] [place] [facility] [address] [id number], [place] [address]- 5437 Jun, [facility] [place] [facility] [address] [id number], [place] [address]- 4141 Jun, [facility] [place] [facility] [address] [id number], [place] [address]- 4712 Jun, [facility] [place] [facility] [address] [id number][place] 3093 Jun, [facility] [place] [facility] [address] [id number][place] 2301 Jun, [facility] [place] [facility] [address] [id number], [place] [address]- 0778 07 Jun, 2014 [facility] [place] [facility] [address] [id number] [place] [address]- 1397 07 Jun, 2014 [facility] [place] [facility] [address] [id number] [place] [address]- 2831 25 May, 2014 [facility] [place] [facility] [address] [id number] [place] [address] May, [facility] [place] [facility] [address] [id number] [place] [address] 11 May, 2014 [facility] [place] [facility] [address] [id number] [place] [address] May, [facility] [place] [facility] [address] [id number] [place] [address] May, [facility] [place] [facility] [address] [id number] [place] [address] May, [facility] [place] [facility] [address] [id number] [place] [address] May, [facility] [place] [facility] [address] [id number] [place] [address] Apr, [facility] [place] [facility] [address] [id number] [place] [address] Apr, [facility] [place] [facility] [address] [id number] [place] [address] Apr, [facility] [place] [facility] [address] [id number] [place] [address] Apr, [facility] [place] [facility] [address] [id number] [place] [address] 14 Apr, 2014 [facility] [place] [facility] [address] [id number] [place] [address] Apr, [facility] [place] [facility] [address] [id number] [place] [address] Apr, [facility] [place] [facility] [address] [id number] [place] [address] Apr, [facility] [place] [facility] [address] [id number] [place] [address] Apr, [facility] [place] [facility] [address] [id number] [place] [address] Apr, [facility] [place] [facility] [address] [id number] [place] [address] Apr, [facility] [place] [facility] [address] [id number] [place] [address] Mar, [facility] [place] [facility] [address] [id number] [place] [address] Mar, [facility] [place] [facility] [address] [id number] [place] [address] Mar, [facility] [place] [facility] [address] [id number] [place] [address] Mar, [facility] [place] [facility] [address] [id number] [place] [address] Feb, [facility] [place] [facility] [address] [id number] [place] [address] Feb, [facility] [place] [facility] [address] [id number] [place] [address] Feb, [facility] [place] [facility] [address] [id number] [place] [address] Feb, [facility] [place] [facility] [address] [id number] [place] [address] Feb, [facility] [place] [facility] [address] [id number] [place] [address] Feb, [facility] [place] [facility] [address] [id number] [place] [address] Feb, [facility] [place] [facility] [address] [id number] [place] [address] Feb, [facility] [place] [facility] [address] [id number] [place] [address] January, [facility] [place] [facility] [address] [id number] [place] [address] January, [facility] [place] [facility] [address] [id number] [place] [address] January, [facility] [place] [facility] [address] [id number] [place] [address] January, [facility] [place] [facility] [address] [id number] [place] [address] Dec, [facility] [place] [facility] [address] [id number] [place] [address] Dec, [facility] [place] [facility] [address] [id number] [place] [address] Dec, [facility] [place] [facility] [address] [id number] [place] [address] Dec, [facility] [facility] [address] [id number] [place] [address] Dec, [facility] [place] [facility] [address] [id number] [place] [address] Dec, [facility] [place] [facility] [address] [id number] [place] [address] Dec, [facility] [place] [facility] [address] [id number] [place] [address] Dec, [facility] [place] [facility] [address] [id number] [place] [address] Dec, [facility] [place] [facility] [address] [id number] [place] [address] 1461 Dec, [facility] [place] [facility] [address] [id number] [place] [address] Nov, [facility] [place] [facility] [address] [id number] [place] [address] Nov, [facility] [place] [facility] [address] [id number] [place] [address] Nov, [facility] [place] [facility] [address] [id number] [place] [address] Nov, [facility] [place] [facility] [address] [id number] [place] [address] 8430 Nov, [facility] [place] [facility] [address] [id number] [place] [address]484 Oct, [facility] [place] [facility] [address] [id number] [place] [address] Oct, [facility] [place] [facility] [address] [id number] [place] [address] Sep, [facility] [place] [facility] [address] [id number] [place] [address] 5868 Sep, [facility] [place] [facility] [address] [id number] [place] [address] 9974 Sep, [facility] [place] [facility] [address] [id number] [place] [address] Sep, [facility] [place] [facility] [address] [id number] [place] [address] 3083 Aug, [facility] [place] [facility] [address] [id number] [place] [address] Aug, [facility] [place] [facility] [address] [id number] [place] [address] 9428 Aug, [facility] [place] [facility] [address] [id number] [place] [address] Aug, [facility] [place] [facility] [address] [id number] [place] [address] Aug, [facility] [place] [facility] [address] [id number] [place] [address]324 Aug, [facility] [place] [facility] [address] [id number] [place] [address] 2541 Aug, [facility] [place] [facility] [address] [id number] [place] [address] 7332 Aug, [facility] [place] [facility] [address] [id number] [place] [address] 2548 Jul, [facility] [place] [facility] [address] [id number] [place] [address] 4195 Jul, [facility] [place] [facility] [address] [id number] [place] [address] 4696 Jul, [facility] [place] [address] [id number] [place] [address]507 Jul, [facility] [place] [address] [id number] [place] [address] 5983 Jun, [facility] [place] [facility] [address] [id number] [place] [address] 6861 Jun, [facility] [place] [facility] [address] [id number] [place] [address] 1614 Jun, [facility] [facility] [address] [id number] [place] [address] 2915 Jun, [facility] [place] [facility] [address] [id number] [place] [address] 2916 Jun, [facility] [address] [id number], [place] [address] May, [facility] [address] [id number] [place] [address] Apr, [facility] [place] [facility] [address] [id number] [place] [address] 2546 Apr, [facility] [place] [address] [id number] [place] [address]40 Mar, [facility] [address] [id number] [place] [address]286 Feb, [facility] [address] [id number] [place] [address] Feb, [facility] [address] [id number] [place] [address]- 0716 January, [facility] [address] [id number] [place] [address]36 January, [facility] [address] [id number] [place] [address] 4286 January, [facility] [address] [id number] [place] [address] 3824 Nov, [facility] [address] [id number] [place] [address] 3185 Oct, [facility] [address] [facility] [id number] [place] [address] 2296 Oct, [facility] [address] [id number] [place] [address] 6002 Oct, [facility] [address] [id number] [place] [address] 4175 Sep, [facility] [address] [facility] [id number] [place] [address] 5288 Sep, [facility] [address] [id number], [place] [address] Aug, [facility] [address] [id number] [place] [address] 2870 Aug, [facility] [address] [id number] [place] [address]- 3702 Jul, [facility] [address] [id number] [place] [address] 4360 Jul, [facility] [address] [facility] [id number] [place] [address] 6921 Jul, [facility] [address] [id number] [place] [address] 8559 Jul, [facility] [address] [id number] [place] [address] 7212 Jul, [facility] [address] [id number] [place] [address]- 7705 Jul, [facility] [address] [id number] [place] [address] 9098 Jul, [facility] [address] [id number] [place] [address] 0347 Jul, [facility] [address] [id number] [place] [address]- 0733 Jul, [facility] [address] [id number] [place] [address] 5701 Jul, [facility] [address] [id number] [place] [address] 5130 Jul, [facility] [address] [id number] [place] [address]- 0728 Jul, [facility] [address] [id number] [place] [address]- 6826 Jul, [facility] [address] [facility] [id number] [place] [address]- 7873 Jul, [facility] [address] [id number] [place] [address] 0412 Jun, [facility] [address] [id number] [place] [address]- 7183 Jun, [facility] [address] [id number] [place] [address]- 9900 Jun, [facility] [address] [id number] [place] [address]- 7866 Jun, [facility] [address] [id number] [place] [address]- 9941 Jun, [facility] [address] [id number] [place] [address]- 7781 Jun, [facility] [address] [id number] [place] [address]- 9661 Jun, [facility] [address] [id number] [place] [address]- 8306 Apr, [facility] [address] [id number] [place] [address]- 0006 Apr, [facility] [address] [id number] [place] [address]- 4054 Mar, [facility] [address] [id number] [place] [address]- 7220 Feb, [facility] [address] [id number] [place] [address]- 1254 Feb, [facility] [address] [id number] [place] [address]- 5481 January, [facility] [address] [id number] [place] [address]- 2557 January, [facility] [address] [facility] [id number] [place] [address]- 6471 Dec, [facility] [address] [id number] [place] [address]- 3636 Dec, [facility] [address] [id number], [place] [address] 3112 Nov, [facility] [address] [id number] [place] [address]- 5904 Oct, [facility] [address] [id number], [place] [address] 1476 Oct, [facility] [address] [facility] [id number] [place] [address]- 3256 Oct, [facility] [address] [id number] [place] [address]- 2506 19 Sep, 2011 [facility] [address] [id number] [place] [address]- 0062 14 Aug, 2011 [facility] [address] [id number] [place] [address]- 5803 14 Aug, 2011 [facility] [address] [id number] [place] [address]- 5496 13 Aug, 2011 [facility] [address] [id number] [place] [address]- 1816 05 Aug, 2011 [facility] [address] [id number] [place] [address]- 7198 02 Aug, 2011 [facility] [address] [id number] [place] [address]- 5322 Jul, [facility] [address] [id number] [place] [address]- 3613 Jul, [facility] [address] [id number] [place] [address]- 4427 Jul, [facility] [address] [id number] [place] [address]- 4859 08 Jul, 2011 [facility] [address] [id number] [place] [address]- 8797 29 Aug, 2010 [facility] [address] [id number] [place] [address]- 9068 28 Aug, 2010 [facility] [address] [id number] [place] [address]- 6457 13 Aug, 2010 [facility] [address] [id number] [place] [address]- 0777 25 Jun, 2010 [facility] [address] [id number] [place] [address]- 4864 18 Jun, 2010 [facility] [address] [id number] [place] [address]- 2326 Jun, [facility] [address] [facility] [id number], [place] [address] 0476 Jun, [facility] [id number], [place] [address] 1723 Jun, [facility] [address] [id number] [address] 2068 Jul, [facility] [id number] [address] [address] Jul, [facility] [address] [id number], [place] [address] 8781 Jun, [facility] [id number], [place] [address] Jun, IMMUNIZATIONS No Known Immunizations SOCIAL HISTORY Never Assessed REASON FOR VISIT Pain management (chronic) Pt in for follow up, states he has been having constipation for days then diarrhea for days afterward MICHAEL Alexander PLAN OF CARE Activity Details Follow Up 3 Months Reason:chronic pain VITAL SIGNS Height 68 in 2018-08-30 Weight 167.7 lbs 2018-08-30 Temperature 97.9 degrees Fahrenheit 2018-08-30 Heart Rate 76 bpm 2018-08-30 Respiratory Rate 18 2018-08-30 BMI 25.5 kg/m2 2018-08-30 Blood pressure systolic 128 mmHg 2018-08-30 Blood pressure diastolic 68 mmHg 2018-08-30 MEDICATIONS Medication Instructions Dosage Frequency Start Date End Date Duration Status Amlodipine Besylate 10 mg Orally Once a day 1 tablet 24h Jun, 90 days Active Aricept 5 mg Orally Once a day 1 tablet at bedtime 24h Dec, 30 day(s) Active Imitrex 100 MG Orally Twice a day 1 tablet as needed 12h Active Aspirin Adult Low Strength 81 MG Orally Once a day 1 tablet 24h Active Ondansetron HCl 8 MG TAKE ONE TABLET BY MOUTH THREE TIMES DAILY NEEDED FOR NAUSEA 6 Active Carafate 1 GM TAKE ONE TABLET BY MOUTH FOUR TIMES DAILY BEFORE MEALS AND AT BEDTIME 30 Active Propranolol HCl ER 160 MG Orally Once a day 1 capsule 24h 90 days Active Protonix 40 MG Orally Once a day 1 capsule 24h Active Spiriva HandiHaler 18 MCG Inhalation Once a day 1 capsule 24h January, 30 days Active Bentyl 20 MG Orally Four times a day 1 tablet 6h 30 Active Advair Diskus 250 mcg-50 mcg 1 puffs 2 times per day Apr, Active Hydrocodone-Acetaminophen 7.5-325 MG Orally 3 times a day 1 tablet as needed for pain 8h Aug, 28 days Active Sertraline HCl 100 MG Orally Once a day 1 tablet 24h 90 Active Colace 100 MG Orally 2 times a day 1 capsule as needed 12h Aug, 30 day(s) Active Trazodone HCl 50 MG Orally Once a day 1- 2 tablet at bedtime as needed 24h Aug, Active ProAir HFA 108 (90 Base) MCG/ACT Inhalation every 4 hrs 2 puffs as needed 4h Jul, Active Tamsulosin HCl 0.4 MG Orally Once a day 1 capsule 30 minutes after the same meal each day 24h 30 Active RESULTS No Results PROCEDURES No [...]
--- OUTSIDE RECORDS SUMMARY | 2018-12-19 18:39 | XMS REPORT ---
Author Author LASHAY BLACK Organization [facility] Address [address] [place] [address] Care Team Providers Care Pheresis Specialist Name Role Phone LASHAY BLACK Unavailable PROBLEMS Type Condition ICD9-CM Code [id number] Code Onset Dates Condition Status SNOMED Code Problem Irritable bowel syndrome with diarrhea K58.0 Active 172479354 Problem Venous vascular malformations Q27.9 Active 642955386 Problem Chronic obstructive pulmonary disease, unspecified COPD type J44.9 Active 18170817 Problem Primary insomnia F51.01 Active 0194071 Problem Migraine without aura and without status migrainosus, not intractable G43.009 Active 466767123 Problem 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 840477028 Problem Hypercholesterolemia E78.00 Active 38240759 Problem Post concussion syndrome F07.81 Active 83221019 Problem Other headache syndrome G44.89 Active 790935183 Problem Decreased renal function N28.9 Active 40353669 Problem Unspecified asthma, uncomplicated J45.909 Active 005739329 Problem Cervicalgia M54.2 Active 38887744 Problem Other chronic pain G89.29 Active 14710635 Problem Hypertension I10 Active 46177087 Problem Idiopathic sleep related nonobstructive alveolar 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 Active 26763169 Problem Anxiety F41.9 Active 92329621 Problem Obstructive sleep apnea G47.33 Active 28029212 ALLERGIES No Information ENCOUNTERS Encounter Location Date Diagnosis [facility] [address] [facility] [id number] [address] Aug, [facility] [address] [address] Aug, Other chronic pain G89.29 [facility] [id number] [address] Jul, Other chronic pain G89.29 [place] [id number] [place] [address] 21239- 5511 Jun, Encounter for immunization Z23 [place] [address] 06808- 7140 Jun, Other chronic pain G89.29 [place] [id number] [place] [address] 99256- 3371 Apr, Other chronic pain G89.29 [place] [id number] [place] [address] 80405- 5772 Mar, Other chronic pain G89.29 [place] [address] 99348- 0750 Mar, Decreased renal function N28.9 [place] [id number] [place] [address] 47866- 5016 Feb, Xyphoidalgia R07.89 [place] [id number] [place] [address] 55514- 1957 January, Arthralgia, unspecified joint M25.50 and Other chronic pain G89.29 [place] [id number] [place] [address] 81534- 3702 Dec, Drug-induced constipation K59.03 ; Fatigue, unspecified type R53.83 ; Forgetfulness R68.89 ; Other chronic pain G89.29 and Primary insomnia F51.01 [place] [id number] [place] [address] 50308- 3860 Nov, [place] [id number] [place] [address] 24830- 1129 Oct, Other chronic pain G89.29 [place] [id number] [place] [address] 26312- 8925 Sep, Other chronic pain G89.29 [place] [id number] [place] [address] 06229- 8477 Sep, Other chronic pain G89.29 [facility] [id number] [place] [address] 21557- 3944 Aug, Other chronic pain G89.29 [facility] [address] 44828- 6658 Jul, Other chronic pain G89.29 ; Encounter for immunization Z23 and Side effects of treatment, initial encounter T88.9XXA [place] [address] 58846- 3179 Jul, Other chronic pain G89.29 [facility] [address] 83536 -9285 Jul, [place] [address] 37146- 5979 Jul, Encounter for immunization Z23 [place] [address] 89463- 3029 Jun, Hypertension I10 ; Other headache syndrome G44.89 ; Post concussion syndrome F07.81 and Other chronic pain G89.29 [place] [address] 32790- 7488 May, [place] [address] 65397- 2972 May, Migraine without aura and without status migrainosus, not intractable G43.009 [place] [address] 74219- 0196 May, 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 [place] [address] 49816- 6068 May, Other chronic pain G89.29 [facility] [address] 84002- 0546 Apr, Chronic obstructive pulmonary disease, unspecified COPD type J44.9 [facility] [address] 34480- 5350 Apr, Chronic obstructive pulmonary disease, unspecified COPD type J44.9 [facility] [id number] [place] [address] 93737- 8416 Apr, Other chronic pain G89.29 ; Irritable bowel syndrome with diarrhea K58.0 and Hypercholesterolemia E78.00 [facility] [address], [place] [address] 4966 Apr, Other chronic pain G89.29 [facility] [id number] [place] [address] 40112- 7302 Mar, Other chronic pain G89.29 [facility] [id number] [place] [address] 21274- 8727 Feb, 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 [facility] [id number] [place] [address] 69690- 3173 Feb, Other chronic pain G89.29 [facility] [address] [id number] [address] 0557 Feb, [facility] [address] [place] [address] 30281- 6995 January, [facility] [address], [place] [address] 9248 January, Other chronic pain G89.29 [facility] [address], [place] [address] 8671 January, [facility] [address] [address] 5467 January, [facility] [id number] [address] January, Other chronic pain G89.29 ; Irritable bowel syndrome with diarrhea K58.0 and Hypercholesterolemia E78.00 [facility] [address], [place] [address] 1986 January, Other chronic pain G89.29 ; Hypertension I10 ; Irritable bowel syndrome with diarrhea K58.0 ; Chronic obstructive pulmonary disease, unspecified COPD type J44.9 and Venous vascular malformations Q27.9 [facility] [id number] [place] [address] 99808 -9442 January, Acute otitis externa of right ear, unspecified type H60.501 [facility] [id number] [place] [address] 61769- 8738 Dec, Other chronic pain G89.29 [facility] [address] 75917- 0863 Dec, Hypertension I10 [place] [address] 46767- 6054 Nov, Other chronic pain G89.29 [facility] [address] 48946- 3588 Oct, Other chronic pain G89.29 [facility] [address] 03038- 0606 Sep, Other chronic pain G89.29 [facility] [address] 05634- 0163 Sep, Hypertension I10 [facility] [id number] [place] [address] 65886- 6291 Sep, Other chronic pain G89.29 [facility] [id number] [place] [address] 06825- 2469 Aug, Arthralgia, unspecified joint M25.50 ; Other chronic pain G89.29 ; Obstructive sleep apnea G47.33 and Idiopathic sleep related nonobstructive alveolar 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 [place] [address] 65956- 9364 Aug, [facility] [id number] [place] [address] 77972- 9143 Aug, Other chronic pain G89.29 [facility] [id number] [place] [address] 50951- 0422 Jul, Chronic obstructive pulmonary disease, unspecified COPD type J44.9 and Diarrhea, unspecified type R19.7 [place] [id number] [place] [address] 44399- 8224 Jul, Other chronic pain G89.29 [place] [address] 15926- 2796 Jul, Skin tags, multiple acquired L91.8 [place] [address] 70060- 6856 Jun, [place] [address] 31156- 3255 Jun, Hypertension I10 [place] [address] 87169- 6193 May, Mouth pain K13.79 and Other chronic pain G89.29 [place] [id number] [place] [address] 49825- 6993 May, [place] [address] 05197- 2823 May, [place] [id number] [place] [address] 83507- 3687 May, Pain in right knee M25.561 and Other chronic pain G89.29 [place] [id number] [place] [address] 39785- 3786 Apr, Cervicalgia M54.2 [place] [id number] [place] [address] 10923- 5931 Mar, Cervicalgia M54.2 [place] [id number] [place] [address] 30866- 8866 Feb, Fever, unspecified fever cause R50.9 and Arthralgia, unspecified joint M25.50 [place] [id number] [place] [address] 76499- 2848 15 Feb, 2016 Hypertension I10 and Chronic pain syndrome G89.4 [place] [id number] [place] [address] 92796- 2037 Feb, Cervicalgia M54.2 [facility] [id number] [place] [address] 98819- 8586 January, [facility] [address] 67782- 3833 Dec, Chest pain R07.9 ; Family history of early CAD Z82.49 ; Hypertension I10 ; Fatigue R53.83 and History of IBS Z87.19 [place] [id number] [place] [address] 43753- 8643 Dec, [place] [id number] [place] [address] 71713- 8423 Nov, Allergic rhinitis J30.9 [place] [id number] [place] [address] 02593- 3229 Nov, [place] [id number] [place] [address] 53781- 4601 Nov, Hypertension I10 and Anxiety F41.9 [place] [id number] [place] [address] 90950- 9563 Nov, [place] [id number] [place] [address] 46181- 8259 Oct, [place] [id number] [place] [address] 19208- 3588 Oct, Chest pain R07.9 ; Family history of early CAD Z82.49 ; Hypertension I10 ; Fatigue R53.83 and History of IBS Z87.19 [facility] [id number] [place] [address] 29525- 9488 Oct, [place] [address] 68456- 6728 Oct, Chest pain, unspecified R07.9 [facility] [id number] [place] [address] 56534- 7680 Oct, Chest pain, unspecified R07.9 ; Irritable bowel syndrome with diarrhea K58.0 ; Fatigue R53.83 and Degenerative disc disease, cervical M50.30 [facility] [id number] [place] [address] 64953- 1547 Oct, [facility] [id number] [place] [address] 06930- 9023 Oct, [facility] [address] 37532- 7011 Sep, [facility] [id number] [place] [address] 43379- 7729 Sep, [facility] [address] 41503- 7562 Aug, [facility] [id number] [place] [address] 40761- 5509 Aug, [facility] [id number] [place] [address] 99774- 0808 Aug, [facility] [id number] [place] [address] 01367- 3184 Jul, Cervicalgia M54.2 ; Headache R51 ; Post-traumatic headache, unspecified, not intractable G44.309 and Unspecified intracranial injury without loss of consciousness, sequela S06.9X0S [facility] [id number] [place] [address] 79681- 9920 Jul, [facility] [id number] [place] [address] 71886- 7987 Jul, [facility] [id number] [place] [address] 93948- 4592 Jun, [facility] [address] 81436- 7242 Jun, Encounter for immunization Z23 [facility] [address] [id number] [place] [address]- 9216 Jun, [facility] [place] [facility] [address] [id number] [place] [address]- 3066 08 May, 2015 [facility] [address] [facility] [id number] [place] [address]- 7559 May, [facility] [place] [facility] [address] [id number] [place] [address]- 1159 Apr, [facility] [address] [id number] [place] [address], [place] [address]- 9215 Apr, [facility] [place] [facility] [address] [id number] [place] [address]- 4020 Apr, [facility] [address] [facility] [id number], [place] [address]- 1695 Mar, [facility] [place] [facility] [address] [facility] [id number], [place] [address]- 7657 Mar, [facility] [place] [facility] [address] [facility] [id number] [place] [address]- 1025 Mar, [facility] [place] [facility] [address] [facility] [id number] [place] [address]- 2514 Feb, [facility] [place] [facility] [address] [facility] [id number], [place] [address]- 1598 Feb, [facility] [place] [facility] [address] [facility] [id number], [place] [address]- 6738 January, [facility] [place] [facility] [address] [id number], [place] [address]- 6391 January, [facility] [place] [facility] [address] [facility] [id number], [place] [address]- 6261 Dec, [facility] [place] [facility] [address] [facility] [id number], [place] [address]- 6413 Dec, [facility] [place] [facility] [address] [id number] [place] [address]- 3288 Nov, [facility] [place] [facility] [address] [id number] [place] [address]- 9203 Nov, [facility] [place] [facility] [address] [id number] [place] [address]- 5782 Nov, [facility] [place] [facility] [address] [id number] [place] [address]- 4554 Nov, [facility] [place] [facility] [address] [id number] [place] [address]- 8107 Nov, [facility] [place] [facility] [address] [id number] [place] [address]- 3659 Nov, [facility] [place] [facility] [address] [id number] [place] [address]- 8669 Nov, [facility] [place] [facility] [address] [id number] [place] [address]- 1760 Nov, [facility] [place] [facility] [address] [id number] [place] [address]- 0118 Nov, [facility] [place] [facility] [address] [id number] [place] [address]- 9968 Nov, [facility] [place] [facility] [address] [id number] [place] [address]- 4232 Nov, [facility] [place] [facility] [address] [id number] [place] [address]- 4046 Nov, [facility] [place] [facility] [address] [id number] [place] [address]- 6073 Nov, [facility] [place] [facility] [address] [id number] [place] [address]- 2339 Nov, [facility] [place] [facility] [address] [id number] [place] [address]- 9543 Oct, [facility] [place] [facility] [address] [id number] [place] [address]- 7979 Oct, [facility] [place] [facility] [address] [id number] [place] [address]- 7192 Oct, [facility] [place] [facility] [address] [id number] [place] 9700 Oct, [facility] [place] [facility] [address] [id number] [place] [address]- 4897 Sep, [facility] [place] [facility] [address] [id number] [place] [address]- 5543 Sep, [facility] [place] [facility] [address] [id number] [place] [address]- 8222 Sep, [facility] [place] [facility] [address] [id number] [place] [address]- 5158 Sep, [facility] [place] [facility] [address] [id number] [place] [address]- 2785 Sep, [facility] [place] [facility] [address] [id number] [place] [address]- 2802 Sep, [facility] [place] [facility] [address] [id number] [place] [address]- 2766 Sep, [facility] [place] [facility] [address] [id number] [place] [address]- 2111 Sep, [facility] [place] [facility] [address] [id number], [place] [address]- 5566 Aug, [facility] [place] [facility] [address] [id number] [place] [address]- 3215 Aug, [facility] [place] [facility] [address] [id number] [place] [address]- 5054 Aug, [facility] [place] [facility] [address] [id number] [place] [address]- 2833 Aug, [facility] [place] [facility] [address] [id number] [place] [address]- 6733 Aug, [facility] [place] [facility] [address] [id number] [place] [address]- 4327 Aug, [facility] [place] [facility] [address] [id number] [place] [address]- 6858 Aug, [facility] [place] [facility] [address] [id number] [place] [address]- 8911 Aug, [facility] [place] [facility] [address] [id number] [place] [address]- 8640 Jul, [facility] [place] [facility] [address] [id number] [place] [address]- 8918 Jul, [facility] [place] [facility] [address] [id number] [place] [address]- 3794 Jul, [facility] [place] [facility] [address] [id number] [place] [address]- 3876 Jul, [facility] [place] [facility] [address] [id number] [place] [address]- 5661 Jul, [facility] [place] [facility] [address] [id number] [place] [address]- 8645 Jul, [facility] [place] [facility] [address] [id number] [place] [address]- 2254 Jul, [facility] [place] [facility] [address] [id number] [place] [address]- 7115 Jul, [facility] [place] [facility] [address] [id number] [place] [address]- 5396 Jul, [facility] [place] [facility] [address] [id number] [place] [address]- 9103 Jul, [facility] [place] [facility] [address] [id number] [place] 6339 Jul, [facility] [place] [facility] [address] [id number] [place] [address]- 1321 Jun, [facility] [place] [facility] [address] [id number] [place] 8006 Jun, [facility] [place] [facility] [address] [id number] [place] [address]- 6137 Jun, 2013 [facility] [place] [facility] [address] [id number] [place] [address]- 2718 Jun, [facility] [place] [facility] [address] [id number] [place] [address]- 4509 Jun, [facility] [place] [facility] [address] [id number] [place] [address]- 6461 Jun, 2013 [facility] [place] [facility] [address] [id number] [place] [address]- 6976 Jun, [facility] [place] [facility] [address] [id number] [place] [address]- 5887 Jun, [facility] [place] [facility] [address] [id number] [place] [address]- 4909 Jun, [facility] [place] [facility] [address] [id number] [place] [address]- 1726 Jun, [facility] [place] [facility] [address] [id number] [place] [address]- 7846 Jun, [facility] [place] [facility] [address] [id number] [place] [address]- 5028 Jun, 2013 [facility] [place] [facility] [address] [id number], [place] [address]- 1270 Jun, [facility] [place] [facility] [address] [id number], [place] [address]- 1285 Jun, [facility] [place] [facility] [address] [id number] [place] [address]- 7400 Jun, [facility] [place] [facility] [address] [id number] [place] 4427 Jun, 2013 [facility] [place] [facility] [address] [id number] [place] 2597 Jun, 2013 [facility] [place] [facility] [address] [id number] [place] [address]- 5561 25 May, 2013 [facility] [place] [facility] [address] [id number] [place] [address]- 0116 11 May, 2013 [facility] [place] [facility] [address] [id number] [place] [address]- 4040 11 May, 2013 [facility] [place] [facility] [address] [id number] [place] [address]- 5437 04 May, 2013 [facility] [place] [facility] [address] [id number] [place] [address]- 8782 04 May, 2013 [facility] [place] [facility] [address] [id number] [place] [address]- 9008 03 May, 2013 [facility] [place] [facility] [address] [id number] [place] [address]- 5475 May, 2013 [facility] [place] [facility] [address] [id number] [place] [address]- 8105 Apr, [facility] [place] [facility] [address] [id number] [place] [address]- 8995 Apr, [facility] [place] [facility] [address] [id number] [place] [address]- 1204 Apr, [facility] [place] [facility] [address] [id number] [place] [address] Apr, [facility] [place] [facility] [address] [id number] [place] [address] 14 Apr, 2014 [facility] [place] [facility] [address] [id number] [place] [address] Apr, [facility] [place] [facility] [address] [id number] [place] [address] Apr, [facility] [place] [facility] [address] [id number] [place] [address] Apr, [facility] [place] [facility] [address] [id number] [place] [address] Apr, [facility] [place] [facility] [address] [id number] [place] [address] Apr, [facility] [place] [facility] [address] [id number] [place] [address] Apr, [facility] [place] [facility] [address] [id number] [place] [address] Mar, [facility] [place] [facility] [address] [id number] [place] [address] Mar, [facility] [place] [facility] [address] [id number] [place] [address] Mar, [facility] [place] [facility] [address] [id number] [place] [address] Mar, [facility] [place] [facility] [address] [id number] [place] [address] Feb, [facility] [place] [facility] [address] [id number] [place] [address] Feb, [facility] [place] [facility] [address] [id number] [place] [address] Feb, [facility] [place] [facility] [address] [id number] [place] [address]- 8435 Feb, [facility] [place] [facility] [address] [id number] [place] [address] Feb, [facility] [place] [facility] [address] [id number] [place] [address] Feb, [facility] [place] [facility] [address] [id number] [place] [address]- [address] Feb, [facility] [place] [facility] [address] [id number] [place] [address] Feb, [facility] [place] [facility] [address] [id number] [place] [address] 39[address] January, [facility] [place] [facility] [address] [id number] [place] [address] January, [facility] [place] [facility] [address] [id number] [place] [address] January, [facility] [place] [facility] [address] [id number] [place] [address]- [address] January, [facility] [place] [facility] [address] [id number] [place] [address]- [address] Dec, [facility] [place] [facility] [address] [id number] [place] [address]- [address] Dec, [facility] [place] [facility] [address] [id number] [place] [address]- 31[address] Dec, [facility] [place] [facility] [address] [id number] [place] [address]- 6[address] Dec, [facility] [place] [facility] [address] [id number] [place] [address]- 1007 Dec, [facility] [place] [facility] [address] [id number] [place] [address]- [address]60 Dec, [facility] [place] [facility] [address] [id number] [place] [address]- [address] Dec, [facility] [place] [facility] [address] [id number] [place] [address]141 Dec, [facility] [place] [facility] [address] [id number] [place] [address]- [address] Dec, [facility] [place] [facility] [address] [id number] [place] [address]- 89[address] Dec, [facility] [place] [facility] [address] [id number] [place] [address] Nov, [facility] [place] [facility] [address] [id number] [place] [address]991 Nov, [facility] [place] [facility] [address] [id number] [place] [address] Nov, [facility] [place] [facility] [address] [id number] [place] [address] Nov, [facility] [address] [id number] [place] [address] Nov, [facility] [address] [id number] [place] [address] Oct, [facility] [address] [id number] [place] [address] Oct, [facility] [address] [id number] [place] [address] Sep, [facility] [address] [id number] [place] [address] Sep, [facility] [address] [facility] [id number] [place] [address] Sep, [facility] [address] [facility] [id number] [place] [address] Sep, [facility] [address] [id number] [place] [address] Aug, [facility] [address] [id number] [place] [address] Aug, [facility] [address] [facility] [id number] [place] [address] Aug, [facility] [place] [facility] [address] [id number] [place] [address] Aug, [facility] [address] [id number] [place] [address] Aug, [facility] [place] [facility] [address] [id number] [place] [address] Aug, [facility] [place] [facility] [address] [facility] [id number] [place] [address] Aug, [facility] [address] [facility] [id number] [place] [address] Aug, [facility] [place] [facility] [address] [id number] [place] [address] Jul, [facility] [place] [facility] [address] [id number] [place] [address] Jul, [facility] [place] [facility] [address] [id number] [place] [address] Jul, [facility] [place] [facility] [address] [id number] [place] [address] Jul, [facility] [place] [facility] [address] [id number] [place] [address] Jun, [facility] [place] [facility] [address] [id number] [place] [address] Jun, [facility] [place] [facility] [address] [facility] [id number] [place] [address] 12[address] Jun, [facility] [place] [facility] [address] [id number], [place] [address] Jun, [facility] [place] [facility] [address] [id number] [place] [address] 30[address] Jun, [facility] [place] [facility] [address] [id number], [place] [address] May, [facility] [place] [facility] [address] [facility] [id number], [place] [address] Apr, [facility] [place] [facility] [address] [id number], [place] [address] Apr, [facility] [place] [facility] [address] [id number], [place] [address] Mar, [facility] [place] [facility] [address] [id number], [place] [address] Feb, [facility] [place] [facility] [address] [facility] [id number], [place] [address] Feb, [facility] [place] [facility] [address] [id number], [place] [address] January, [facility] [address] [id number] [place] [address] January, [facility] [address] [id number] [place] [address] January, [facility] [address] [id number] [place] [address] 137[address] Nov, [facility] [place] [facility] [address] [id number] [place] [address]48 Oct, [facility] [address] [id number] [place] [address] Oct, [facility] [place] [facility] [address] [id number] [place] [address]- 35[address] Oct, [facility] [address] [id number] [place] [address] Sep, [facility] [address] [id number] [place] [address]24 Sep, [facility] [address] [id number] [place] [address] Aug, [facility] [address] [facility] [id number] [place] [address] Aug, [facility] [address] [id number] [place] [address] Jul, [facility] [place] [facility] [address] [id number] [place] [address] Jul, [facility] [place] [facility] [address] [id number] [place] [address] Jul, [facility] [place] [facility] [address] [id number] [place] [address] 7395 Jul, [facility] [place] [facility] [address] [facility] [id number], [place] [address] Jul, [facility] [place] [facility] [address] [id number] [place] [address]- 7057 Jul, [facility] [place] [facility] [address] [id number] [place] [address] Jul, [facility] [place] [facility] [address] [id number] [place] [address]- 4[address] Jul, [facility] [place] [facility] [address] [id number] [place] [address]- 7710 Jul, [facility] [place] [facility] [address] [id number] [place] [address]- [address] Jul, [facility] [place] [facility] [address] [id number] [place] [address]- 6549 Jul, [facility] [place] [facility] [address] [id number] [place] [address]- 6261 Jul, [facility] [place] [facility] [address] [id number] [place] [address]- 2800 Jul, [facility] [place] [facility] [address] [id number] [place] [address]- 6679 Jul, [facility] [place] [facility] [address] [id number] [place] [address]- 2905 Jun, [facility] [place] [facility] [address] [id number] [place] [address]- 8[address] Jun, [facility] [place] [facility] [address] [id number] [place] [address]- 7845 Jun, [facility] [place] [facility] [address] [id number] [place] [address]- 9112 Jun, [facility] [place] [facility] [address] [id number] [place] [address]- [address]115 Jun, [facility] [place] [facility] [address] [id number] [place] [address]- 4656 Jun, [facility] [place] [facility] [address] [id number] [place] [address]- 2062 Jun, [facility] [place] [facility] [address] [id number] [place] [address]- 8652 Apr, [facility] [place] [facility] [address] [id number] [place] [address]- 9706 Apr, [facility] [place] [facility] [address] [id number] [place] [address]- 3802 Mar, [facility] [place] [facility] [address] [id number] [place] [address]- 2299 Feb, [facility] [place] [facility] [address] [id number] [place] [address]- 0742 Feb, [facility] [place] [facility] [address] [id number] [place] [address]- 2313 January, [facility] [place] [facility] [address] [id number] [place] [address]- 1656 January, [facility] [place] [facility] [address] [id number] [place] [address]- 7972 Dec, [facility] [place] [facility] [address] [id number] [place] [address]- 3620 Dec, [facility] [place] [facility] [address] [id number] [place] [address]- 7857 Nov, [facility] [place] [facility] [address] [id number] [place] [address]- 8724 Oct, [facility] [place] [facility] [address] [id number] [place] [address]- 0440 Oct, [facility] [place] [facility] [address] [id number] [place] [address]- 0486 Oct, [facility] [place] [facility] [address] [id number] [place] [address]- 6166 Sep, [facility] [place] [facility] [address] [id number] [place] [address]- 1366 Aug, [facility] [place] [facility] [address] [id number] [place] [address]- [address]277 14 Aug, 2011 [facility] [address] [id number] [place] [address]- 7769 13 Aug, 2011 [facility] [place] [facility] [address] [id number] [place] [address]- 6146 05 Aug, 2011 [facility] [address] [id number] [place] [address]- 5166 02 Aug, 2011 [facility] [place] [facility] [address] [id number] [place] [address]- 7046 Jul, [facility] [address] [id number] [place] [address]- 9093 Jul, [facility] [place] [facility] [address] [id number] [place] [address]- 5462 Jul, [facility] [place] [facility] [address] [id number] [place] [address]- 9918 Jul, [facility] [address] [id number] [place] [address]- 9600 29 Aug, 2010 [facility] [place] [facility] [address] [id number] [place] [address]- 7915 28 Aug, 2010 [facility] [place] [facility] [address] [id number] [place] [address]- 3727 13 Aug, 2010 [facility] [place] [facility] [address] [id number] [place] [address]- 6983 25 Jun, 2010 [facility] [place] [facility] [address] [id number] [place] [address]- 2889 18 Jun, 2010 [facility] [place] [facility] [address] [id number] [place] [address]- 3991 18 Jun, 2010 [facility] [place] [facility] [address] [id number] [place] [address]- 0793 Jun, [facility] [place] [facility] [address] [id number] [place] [address]- 6748 Jun, [facility] [address] [facility] [id number], [place] [address] Jul, [facility] [address] [facility] [id number], [place] [address]46 Jul, [facility] [address] [facility] [id number], [place] [address]- 2546 Jun, [facility] [address] [facility] [id number], [place] [address]- [address]46 Jun, IMMUNIZATIONS No Known Immunizations SOCIAL HISTORY Never Assessed REASON FOR VISIT Controlled Med Refill PLAN OF CARE VITAL SIGNS MEDICATIONS Medication [...]
--- OUTSIDE RECORDS SUMMARY | 2018-12-19 18:40 | XMS REPORT ---
Author Author LASHAY BLACK Organization [facility] Address [address] [place] [address] Care Team Providers Care Cone Runner Name Role Phone LASHAY BLACK Unavailable PROBLEMS Type Condition ICD9-CM Code QAE50-IJ Code Onset Dates Condition Status SNOMED Code Problem Irritable bowel syndrome with diarrhea K58.0 Active 704506664 Problem Venous vascular malformations Q27.9 Active 629599162 Problem Chronic obstructive pulmonary disease, unspecified COPD type J44.9 Active 74580541 Problem Primary insomnia F51.01 Active 8919343 Problem Migraine without aura and without status migrainosus, not intractable G43.009 Active 220998885 Problem 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 658037353 Problem Hypercholesterolemia E78.00 Active 83498306 Problem Post concussion syndrome F07.81 Active 71166034 Problem Other headache syndrome G44.89 Active 987686274 Problem Decreased renal function N28.9 Active 05128351 Problem Unspecified asthma, uncomplicated J45.909 Active 529964353 Problem Cervicalgia M54.2 Active 12803442 Problem Other chronic pain G89.29 Active 60416803 Problem Hypertension I10 Active 79823366 Problem Idiopathic sleep related nonobstructive alveolar 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 Active 19660655 Problem Anxiety F41.9 Active 81913485 Problem Obstructive sleep apnea G47.33 Active 94515956 ALLERGIES No Information ENCOUNTERS Encounter Location Date Diagnosis [facility] [address] [facility] [id number] [address] Jul, Other chronic pain G89.29 [facility] [address] [id number] [address] Jun, Encounter for immunization Z23 [facility] [address] [id number] [address] Jun, Other chronic pain G89.29 [facility] [id number] [place] [address] 95506- 9821 Apr, Other chronic pain G89.29 [facility] [id number] [place] [address] 46915- 9097 Mar, Other chronic pain G89.29 [facility] [id number] [place] [address] 59210- 0586 Mar, Decreased renal function N28.9 [facility] [id number] [place] [address] 94445- 8634 Feb, Xyphoidalgia R07.89 [facility] [id number] [place] [address] 41733- 9807 January, Arthralgia, unspecified joint M25.50 and Other chronic pain G89.29 [place] [id number] [place] [address] 57055- 3734 Dec, Drug-induced constipation K59.03 ; Fatigue, unspecified type R53.83 ; Forgetfulness R68.89 ; Other chronic pain G89.29 and Primary insomnia F51.01 [facility] [id number] [place] [address] 89683- 2786 Nov, [facility] [id number] [place] [address] 12083- 9675 Oct, Other chronic pain G89.29 [facility] [id number] [place] [address] 13883- 2300 Sep, Other chronic pain G89.29 [facility] [id number] [place] [address] 91283- 1478 Sep, Other chronic pain G89.29 [facility] [id number] [place] [address] 03773- 7563 Aug, Other chronic pain G89.29 [facility] [id number] [place] [address] 98600- 9792 Jul, Other chronic pain G89.29 ; Encounter for immunization Z23 and Side effects of treatment, initial encounter T88.9XXA [place] [address] 89333- 2531 Jul, Other chronic pain G89.29 [facility] [address] [address] -[address]93 Jul, [facility] [address] 08485- 7497 Jul, Encounter for immunization Z23 [place] [address] 14310- 3875 Jun, Hypertension I10 ; Other headache syndrome G44.89 ; Post concussion syndrome F07.81 and Other chronic pain G89.29 [place] [address] 04369- 6209 May, [place] [address] 16906- 0740 May, Migraine without aura and without status migrainosus, not intractable G43.009 [place] [address] 48156- 4344 May, 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 [place] [address] 89347- 2766 May, Other chronic pain G89.29 [facility] [address] 47008- 6825 Apr, Chronic obstructive pulmonary disease, unspecified COPD type J44.9 [place] [address] 17186- 1838 Apr, Chronic obstructive pulmonary disease, unspecified COPD type J44.9 [place] [id number] [place] [address] 29270- 6228 Apr, Other chronic pain G89.29 ; Irritable bowel syndrome with diarrhea K58.0 and Hypercholesterolemia E78.00 [facility] [address] [address] 8417 Apr, Other chronic pain G89.29 [facility] [address] [address] 3923 Mar, Other chronic pain G89.29 [facility] [address] [address] 5676 Feb, 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 [facility] [address] [address] 3539 Feb, Other chronic pain G89.29 [facility] [id number] [place] [address] 42539- 4593 Feb, [facility] [id number] [place] [address] 25763- 8484 January, [facility] [id number] [place] [address] 44060- 4307 January, Other chronic pain G89.29 [facility] [address] [place] [address] 00713- 2043 January, [facility] [address] [address]- 0513 January, [facility] [address] [address]- 7059 January, Other chronic pain G89.29 ; Irritable bowel syndrome with diarrhea K58.0 and Hypercholesterolemia E78.00 [facility] [address] [address]- 3697 January, Other chronic pain G89.29 ; Hypertension I10 ; Irritable bowel syndrome with diarrhea K58.0 ; Chronic obstructive pulmonary disease, unspecified COPD type J44.9 and Venous vascular malformations Q27.9 [facility] [address] [address] January, Acute otitis externa of right ear, unspecified type H60.501 [facility] [id number] [place] [address] 18922- 1696 Dec, Other chronic pain G89.29 [facility] [id number] [place] [address] 90569- 1241 Dec, Hypertension I10 [facility] [id number] [place] [address] 93284- 4566 Nov, Other chronic pain G89.29 [facility] [id number] [place] [address] 43818- 7135 Oct, Other chronic pain G89.29 [place] [id number] [place] [address] 58129- 7442 Sep, Other chronic pain G89.29 [place] [id number] [place] [address] 48141- 8774 Sep, Hypertension I10 [facility] [id number] [place] [address] 76203- 7766 Sep, Other chronic pain G89.29 [place] [id number] [place] [address] 73740- 7035 Aug, Arthralgia, unspecified joint M25.50 ; Other chronic pain G89.29 ; Obstructive sleep apnea G47.33 and Idiopathic sleep related nonobstructive alveolar 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 [place] [id number] [place] [address] 09681- 3220 Aug, [place] [id number] [place] [address] 97019- 5317 Aug, Other chronic pain G89.29 [place] [id number] [place] [address] 59101- 2800 Jul, Chronic obstructive pulmonary disease, unspecified COPD type J44.9 and Diarrhea, unspecified type R19.7 [place] [id number] [place] [address] 43002- 9844 Jul, Other chronic pain G89.29 [facility] [id number] [place] [address] 26482- 7952 Jul, Skin tags, multiple acquired L91.8 [facility] [id number] [place] [address] 12544- 9714 Jun, [facility] [address] 55407- 2196 Jun, Hypertension I10 [place] [address] 40137- 0909 May, Mouth pain K13.79 and Other chronic pain G89.29 [place] [id number] [place] [address] 88394- 6926 May, [place] [address] 11706- 2579 May, [place] [address] 32838- 8879 May, Pain in right knee M25.561 and Other chronic pain G89.29 [place] [id number] [place] [address] 44957- 8521 Apr, Cervicalgia M54.2 [place] [id number] [place] [address] 41077- 7861 Mar, Cervicalgia M54.2 [place] [id number] [place] [address] 10454- 8090 Feb, Fever, unspecified fever cause R50.9 and Arthralgia, unspecified joint M25.50 [place] [address] 36264- 5160 Feb, Hypertension I10 and Chronic pain syndrome G89.4 [place] [id number] [place] [address] 91780- 3381 Feb, Cervicalgia M54.2 [place] [id number] [place] [address] 39038- 3407 January, [place] [address] 48906- 7198 Dec, Chest pain R07.9 ; Family history of early CAD Z82.49 ; Hypertension I10 ; Fatigue R53.83 and History of IBS Z87.19 [place] [address] 77074- 1428 Dec, [place] [id number] [place] [address] 86166- 5957 Nov, Allergic rhinitis J30.9 [place] [address] 30933- 5014 Nov, [place] [id number] [place] [address] 39103- 3320 Nov, Hypertension I10 and Anxiety F41.9 [place] [id number] [place] [address] 61282- 6081 Nov, [place] [id number] [place] [address] 16550- 4659 Oct, [place] [id number] [place] [address] 51551- 2435 Oct, Chest pain R07.9 ; Family history of early CAD Z82.49 ; Hypertension I10 ; Fatigue R53.83 and History of IBS Z87.19 [place] [id number] [place] [address] 29902- 9356 Oct, [place] [id number] [place] [address] 63406- 5169 Oct, Chest pain, unspecified R07.9 [place] [id number] [place] [address] 51459- 8314 08 Oct, 2015 Chest pain, unspecified R07.9 ; Irritable bowel syndrome with diarrhea K58.0 ; Fatigue R53.83 and Degenerative disc disease, cervical M50.30 [facility] [id number] [place] [address] 92781- 7190 Oct, [facility] [id number] [place] [address] 89355- 2126 Oct, [facility] [id number] [place] [address] 78468- 1675 Sep, [facility] [address] 43520- 8357 Sep, [facility] [id number] [place] [address] 97964- 4190 Aug, [facility] [id number] [place] [address] 97056- 3506 Aug, [facility] [id number] [place] [address] 77839- 0983 Aug, [facility] [id number] [place] [address] 71932- 7947 Jul, Cervicalgia M54.2 ; Headache R51 ; Post-traumatic headache, unspecified, not intractable G44.309 and Unspecified intracranial injury without loss of consciousness, sequela S06.9X0S [facility] [id number] [place] [address] 11582- 6892 Jul, [facility] [id number] [place] [address] 48803- 3948 Jul, [facility] [id number] [place] [address] 51845- 1374 Jun, [facility] [address] 36157- 5549 Jun, Encounter for immunization Z23 [facility] [id number] [place] [address] 89964- 7934 Jun, [facility] [address] 70372- 7161 May, [facility] [place] [facility] [address] [id number] [place] [address]- 9624 May, [facility] [place] [facility] [address] [id number] [place] [address]- 1086 Apr, [facility] [place] [facility] [address] [id number] [place] [address]- 9353 Apr, [facility] [place] [facility] [address] [id number] [place] [address]- 9792 Apr, [facility] [place] [facility] [address] [id number] [place] [address]- 9332 Mar, [facility] [place] [facility] [address] [id number] [place] [address]- 2212 Mar, [facility] [place] [facility] [address] [id number] [place] [address]- 3656 Mar, [facility] [place] [facility] [address] [id number] [place] [address]- 3883 Feb, [facility] [place] [facility] [address] [id number] [place] [address]- 5849 Feb, [facility] [place] [facility] [address] [id number] [place] [address]- 0880 January, [facility] [place] [facility] [address] [id number] [place] [address]- 2620 January, [facility] [place] [facility] [address] [id number] [place] [address]- 2360 Dec, [facility] [place] [facility] [address] [id number] [place] [address]- 0780 Dec, [facility] [place] [facility] [address] [id number] [place] [address]- 0273 Nov, [facility] [place] [facility] [address] [id number] [place] [address]- 5082 Nov, [facility] [place] [facility] [address] [id number] [place] [address]- 8008 Nov, [facility] [place] [facility] [address] [id number] [place] [address]- 7390 Nov, [facility] [place] [facility] [address] [id number] [place] [address]- 6526 Nov, [facility] [place] [facility] [address] [id number] [place] [address]- 3486 Nov, [facility] [place] [facility] [address] [id number] [place] [address]- 8363 Nov, [facility] [place] [facility] [address] [id number] [place] [address]- 0368 Nov, [facility] [place] [facility] [address] [id number] [place] [address]- 8414 Nov, [facility] [place] [facility] [address] [id number] [place] [address]- 0636 Nov, [facility] [place] [facility] [address] [id number] [place] [address]- 6625 Nov, [facility] [place] [facility] [address] [id number] [place] [address]- 5711 Nov, [facility] [place] [facility] [address] [facility] [id number] [place] [address]- 2798 Nov, [facility] [place] [facility] [address] [id number] [place] [address]- 9571 Nov, [facility] [place] [facility] [address] [id number] [place] [address]- 0790 Oct, [facility] [place] [facility] [address] [id number] [place] [address]- 4622 Oct, [facility] [place] [facility] [address] [id number] [place] [address]- 5357 Oct, [facility] [place] [facility] [address] [id number] [place] [address]- 6874 Oct, [facility] [place] [facility] [address] [id number] [place] [address]- 8724 Sep, [facility] [place] [facility] [address] [id number] [place] [address]- 5206 Sep, [facility] [place] [facility] [address] [id number] [place] [address]- 8647 Sep, [facility] [place] [facility] [address] [id number] [place] [address]- 0194 Sep, [facility] [place] [facility] [address] [id number] [place] [address]- 4106 Sep, [facility] [place] [facility] [address] [id number] [place] [address]- 4364 Sep, [facility] [place] [facility] [address] [id number] [place] [address]- 6851 Sep, [facility] [place] [facility] [address] [id number] [place] [address]- 5856 Sep, [facility] [place] [facility] [address] [id number] [place] [address]- 9233 Aug, [facility] [place] [facility] [address] [id number] [place] [address]- 1788 Aug, [facility] [place] [facility] [address] [id number] [place] [address]- 3880 Aug, [facility] [place] [facility] [address] [id number] [address]- 4795 Aug, [facility] [place] [facility] [address] [id number] [place] [address]- 2824 Aug, [facility] [place] [facility] [address] [id number] [place] [address]- 3345 Aug, [facility] [place] [facility] [address] [id number] [place] [address]- 1537 Aug, [facility] [place] [facility] [address] [id number] [place] [address]- 3579 Aug, [facility] [place] [facility] [address] [id number] [place] [address]- 3031 Jul, [facility] [place] [facility] [address] [id number] [place] [address]- 1751 Jul, [facility] [place] [facility] [address] [id number] [place] [address]- 6703 Jul, [facility] [place] [facility] [address] [id number] [place] [address]- 2601 Jul, [facility] [place] [facility] [address] [id number] [place] [address]- 2177 Jul, [facility] [place] [facility] [address] [id number] [place] [address]- 2123 Jul, [facility] [place] [facility] [address] [id number] [place] [address]- 3117 Jul, [facility] [place] [facility] [address] [id number] [place] [address]- 8630 Jul, [facility] [place] [facility] [address] [id number] [place] [address]- 9802 Jul, [facility] [place] [facility] [address] [facility] [id number] [place] [address]- 3289 Jul, [facility] [place] [facility] [address] [id number] [place] [address]- 7062 Jul, [facility] [place] [facility] [address] [id number] [address]- 9760 Jun, [facility] [place] [facility] [address] [id number] [place] [address]- 4255 Jun, [facility] [place] [facility] [address] [id number] [place] [address]- 2934 Jun, [facility] [place] [facility] [address] [id number] [place] [address]- 5516 Jun, [facility] [place] [facility] [address] [id number] [place] [address]- 4461 Jun, 2013 [facility] [place] [facility] [address] [id number] [place] [address]- 7406 Jun, [facility] [place] [facility] [address] [id number] [place] [address]- 1402 Jun, [facility] [place] [facility] [address] [id number] [place] [address]- 8261 Jun, [facility] [place] [facility] [address] [id number] [place] [address]- 3929 Jun, [facility] [place] [facility] [address] [id number] [place] [address]- 4922 Jun, [facility] [place] [facility] [address] [id number] [place] [address]- 3331 Jun, [facility] [place] [facility] [address] [id number] [place] [address]- 9070 Jun, [facility] [place] [facility] [address] [id number] [place] [address]- 7775 Jun, [facility] [place] [facility] [address] [id number] [place] [address]- 6908 Jun, [facility] [place] [facility] [address] [id number] [place] [address]- 9513 Jun, [facility] [place] [facility] [address] [id number] [place] [address]- 3677 Jun, [facility] [place] [facility] [address] [id number] [place] 3990 Jun, [facility] [place] [facility] [address] [id number] [place] [address]- 3101 25 May, 2014 [facility] [place] [facility] [address] [id number] [place] [address]- 5708 11 May, 2014 [facility] [place] [facility] [address] [id number] [place] [address]- 0473 11 May, 2014 [facility] [place] [facility] [address] [id number] [place] [address]- 7038 04 May, 2014 [facility] [place] [facility] [address] [id number] [place] [address]- 8913 04 May, 2014 [facility] [place] [facility] [address] [id number] [place] [address]- 8560 May, [facility] [place] [facility] [address] [id number] [place] [address]- 2805 May, [facility] [place] [facility] [address] [id number] [place] [address]- 0745 Apr, [facility] [place] [facility] [address] [id number] [place] [address]- 6446 Apr, [facility] [place] [facility] [address] [id number] [place] [address] Apr, [facility] [place] [facility] [address] [id number] [place] [address] Apr, [facility] [place] [facility] [address] [id number] [place] [address] Apr, [facility] [place] [facility] [address] [id number] [place] [address] Apr, [facility] [place] [facility] [address] [id number] [place] [address] Apr, [facility] [place] [facility] [address] [id number] [place] [address] Apr, [facility] [place] [facility] [address] [id number] [place] [address] Apr, [facility] [place] [facility] [address] [id number] [place] [address] Apr, [facility] [place] [facility] [address] [id number] [place] [address] Apr, [facility] [place] [facility] [address] [id number] [place] [address] Mar, [facility] [place] [facility] [address] [id number] [place] [address] Mar, [facility] [place] [facility] [address] [id number] [place] [address] Mar, [facility] [place] [facility] [address] [id number] [place] [address] Mar, [facility] [place] [facility] [address] [id number] [place] [address] Feb, [facility] [place] [facility] [address] [id number] [place] [address] Feb, [facility] [place] [facility] [address] [id number] [place] [address] Feb, [facility] [place] [facility] [address] [id number] [place] [address] Feb, [facility] [place] [facility] [address] [id number] [place] [address] Feb, [facility] [place] [facility] [address] [id number] [place] [address] Feb, [facility] [place] [facility] [address] [id number] [place] [address] Feb, [facility] [place] [facility] [address] [id number] [place] [address] Feb, [facility] [place] [facility] [address] [id number] [place] [address] January, [facility] [place] [facility] [address] [id number] [place] [address] January, [facility] [place] [facility] [address] [id number] [place] [address] January, [facility] [place] [facility] [address] [id number] [place] [address] January, [facility] [place] [facility] [address] [id number] [place] [address] Dec, [facility] [place] [facility] [address] [id number] [place] [address] Dec, [facility] [place] [facility] [address] [id number] [place] [address] Dec, [facility] [place] [facility] [address] [id number] [place] [address]- [address] Dec, [facility] [place] [facility] [address] [id number] [place] [address] Dec, [facility] [place] [facility] [address] [id number] [place] [address] Dec, [facility] [place] [facility] [address] [id number] [place] [address] Dec, [facility] [place] [facility] [address] [id number] [place] [address] Dec, [facility] [place] [facility] [address] [id number] [place] [address] Dec, [facility] [place] [facility] [address] [id number] [place] [address] Dec, [facility] [place] [facility] [address] [id number] [place] [address] Nov, [facility] [place] [facility] [address] [id number] [place] [address] Nov, [facility] [place] [facility] [address] [id number] [place] [address] Nov, [facility] [place] [facility] [address] [id number] [place] [address] Nov, [facility] [place] [facility] [address] [id number] [place] [address] Nov, [facility] [place] [facility] [address] [id number] [address] Oct, [facility] [address] [id number] [place] [address] Oct, [facility] [place] [facility] [address] [id number] [place] [address] Sep, [facility] [place] [facility] [address] [facility] [id number] [place] [address] Sep, [facility] [place] [facility] [address] [id number] [place] [address] Sep, [facility] [place] [facility] [address] [facility] [id number] [place] [address] Sep, [facility] [place] [facility] [address] [facility] [id number] [place] [address] Aug, [facility] [address] [facility] [id number] [place] [address]- [address] Aug, [facility] [place] [facility] [address] [facility] [id number] [place] [address] Aug, [facility] [place] [facility] [address] [facility] [id number] [place] [address] Aug, [facility] [place] [facility] [address] [facility] [id number] [place] [address] Aug, [facility] [place] [facility] [address] [facility] [id number] [address] Aug, [facility] [place] [facility] [address] [id number] [address] Aug, [facility] [place] [facility] [address] [id number] [address] Aug, [facility] [place] [facility] [address] [facility] [id number] [address] Jul, [facility] [place] [facility] [address] [facility] [id number] [address] Jul, [facility] [place] [facility] [address] [id number] [place] [address] Jul, [facility] [place] [facility] [address] [id number] [place] [address] Jul, [facility] [place] [facility] [address] [id number] [place] [address] Jun, [facility] [place] [facility] [address] [id number] [place] [address] Jun, [facility] [place] [facility] [address] [id number] [place] [address] 66[address] Jun, [facility] [place] [facility] [address] [id number] [place] [address] 27[address] Jun, [facility] [place] [facility] [address] [id number] [place] [address] Jun, [facility] [place] [facility] [address] [id number] [place] [address] 2020 May, [facility] [place] [facility] [address] [id number] [place] [address] 9465 Apr, [facility] [place] [facility] [address] [id number] [place] [address] Apr, [facility] [place] [facility] [address] [id number] [place] [address] Mar, [facility] [place] [facility] [address] [id number] [place] [address] Feb, [facility] [place] [facility] [address] [id number] [place] [address]365 Feb, [facility] [place] [facility] [address] [id number] [place] [address]656 January, [facility] [place] [facility] [address] [id number] [place] [address]46 January, [facility] [place] [facility] [address] [id number] [place] [address] January, [facility] [place] [facility] [address] [id number] [place] [address] 30[address] Nov, [facility] [place] [facility] [address] [id number] [place] [address] Oct, [facility] [place] [facility] [address] [facility] [id number] [place] Oct, [facility] [place] [facility] [address] [id number] [place] [address] 4785 Oct, [facility] [place] [facility] [address] [id number] [place] [address] Sep, [facility] [place] [facility] [address] [id number] [place] [address] Sep, [facility] [place] [facility] [address] [id number] [place] [address]- 8974 Aug, [facility] [place] [facility] [address] [id number] [place] [address] 9637 Aug, [facility] [place] [facility] [address] [id number] [place] [address] 0495 Jul, [facility] [place] [facility] [address] [id number] [place] [address]75 Jul, [facility] [place] [facility] [address] [id number] [place] [address] Jul, [facility] [place] [facility] [address] [id number] [address] Jul, [facility] [place] [facility] [address] [id number] [place] [address] 1878 Jul, [facility] [place] [facility] [address] [facility] [id number] [place] [address] 1553 Jul, [facility] [place] [facility] [address] [facility] [id number] [place] [address] 3697 Jul, [facility] [place] [facility] [address] [id number] [place] [address] 57[address] Jul, [facility] [place] [facility] [address] [id number] [place] [address] 9532 Jul, [facility] [place] [facility] [address] [id number] [place] [address] 49[address] Jul, [facility] [place] [facility] [address] [id number] [place] [address]- 8937 Jul, [facility] [place] [facility] [address] [id number] [place] [address] Jul, [facility] [place] [facility] [address] [id number] [place] [address] 1115 Jul, [facility] [place] [facility] [address] [id number] [place] [address] 265[address] Jul, [facility] [place] [facility] [address] [facility] [id number] [place] [address]146 Jun, [facility] [place] [facility] [address] [id number] [place] [address] 1357 Jun, [facility] [place] [facility] [address] [facility] [id number] [place] [address]- 4937 Jun, [facility] [place] [facility] [address] [facility] [id number] [place] [address]- 6288 Jun, [facility] [place] [facility] [address] [facility] [id number] [place] [address]- 0286 Jun, [facility] [place] [facility] [address] [id number] [place] [address]- 0[address] Jun, [facility] [place] [facility] [address] [id number] [place] [address] Jun, [facility] [place] [facility] [address] [facility] [id number] [place] [address]- 96[address] Apr, [facility] [place] [facility] [address] [facility] [id number] [place] [address] 8497 Apr, [facility] [address] [id number] [place] [address] 6588 Mar, [facility] [place] [facility] [address] [id number] [place] [address]- 3746 Feb, [facility] [place] [facility] [address] [id number] [place] [address]- 7256 Feb, [facility] [place] [facility] [address] [id number] [place] [address]- 8926 January, [facility] [place] [facility] [address] [id number] [place] [address]- 4056 January, [facility] [place] [facility] [address] [id number] [place] [address]- 6606 Dec, [facility] [place] [facility] [address] [id number] [place] [address]- 5116 Dec, [facility] [place] [facility] [address] [id number] [place] [address]- 4786 Nov, [facility] [place] [facility] [address] [id number] [place] [address]- 8900 Oct, [facility] [place] [facility] [address] [id number] [place] [address]- [address]576 Oct, [facility] [place] [facility] [address] [id number] [place] [address]- 8546 Oct, [facility] [place] [facility] [address] [id number] [place] [address]- 8146 Sep, [facility] [place] [facility] [address] [id number] [place] [address]- 3776 Aug, [facility] [place] [facility] [address] [id number] [place] [address]- 3346 Aug, [facility] [place] [facility] [address] [id number] [place] [address] Aug, [facility] [place] [facility] [address] [id number] [place] [address]- 8[address] 05 Aug, 2011 [facility] [place] [facility] [address] [id number] [place] [address]- 9430 02 Aug, 2011 [facility] [place] [facility] [address] [id number] [place] [address]- 5545 Jul, [facility] [place] [facility] [address] [id number] [place] [address]- 8556 Jul, [facility] [place] [facility] [address] [id number] [place] [address]- 4512 Jul, [facility] [place] [facility] [address] [id number] [place] [address]- 6364 08 Jul, 2011 [facility] [place] [facility] [address] [id number] [place] [address]- 4495 29 Aug, 2010 [facility] [place] [facility] [address] [id number] [place] [address]- 8199 28 Aug, 2010 [facility] [place] [facility] [address] [id number] [place] [address]- 6292 Aug, [facility] [place] [facility] [address] [id number] [place] [address]- 1798 25 Jun, 2010 [facility] [place] [facility] [address] [facility] [id number] [place] [address]- 0852 Jun, [facility] [place] [facility] [address] [id number] [place] [address]- 6128 18 Jun, 2010 [facility] [place] [facility] [address] [id number] [place] [address]- 0484 Jun, [facility] [place] [facility] [address] [id number] [place] [address]- 9658 Jun, [facility] [place] [facility] [address] [facility] [id number] [place] [address]- 1432 30 Jul, 2009 [facility] [place] [facility] [address] [facility] [id number] [place] [address] Jul, [facility] [place] [facility] [address] [facility] [id number] [place] [address]- [address]265 Jun, [facility] [address] [facility] [id number] [address] Jun, IMMUNIZATIONS No Known Immunizations SOCIAL HISTORY Never Assessed REASON FOR VISIT Controlled Med Refill PRN PLAN OF CARE VITAL SIGNS MEDICATIONS Medication Instructions Dosage Frequency Start Date End Date Duration Status Hydrocodone-Acetaminophen 7.5-325 MG Orally 3 times a day 1 tablet as needed for pain 8h Jul, 28 days Active RESULTS No Results PROCEDURES [...]
--- OUTSIDE RECORDS SUMMARY | 2018-12-19 18:41 | XMS REPORT ---
Author Author LASHAY BLACK [facility] Address [address] [place] [address] Care Team Providers Care Binding End Stitcher Name Role Phone LASHAY BLACK Unavailable PROBLEMS Type Condition ICD9-CM Code SGG67-AX Code Onset Dates Condition Status SNOMED Code Problem Irritable bowel syndrome with diarrhea K58.0 Active 660039282 Problem Venous vascular malformations Q27.9 Active 179281128 Problem Chronic obstructive pulmonary disease, unspecified COPD type J44.9 Active 16661479 Problem Primary insomnia F51.01 Active 8380998 Problem Migraine without aura and without status migrainosus, not intractable G43.009 Active 400973089 Problem 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 075299067 Problem Hypercholesterolemia E78.00 Active 71465347 Problem Post concussion syndrome F07.81 Active 19197833 Problem Other headache syndrome G44.89 Active 323203315 Problem Decreased renal function N28.9 Active 45079170 Problem Unspecified asthma, uncomplicated J45.909 Active 070037456 Problem Cervicalgia M54.2 Active 87336113 Problem Other chronic pain G89.29 Active 65808299 Problem Hypertension I10 Active 66764040 Problem Idiopathic sleep related nonobstructive alveolar 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 Active 08500128 Problem Anxiety F41.9 Active 67796995 Problem Obstructive sleep apnea G47.33 Active 97287908 ALLERGIES No Information ENCOUNTERS Encounter Location Date Diagnosis [facility], [place] [address] [facility] [id number] [address] Jun, Encounter for immunization Z23 [facility], [place] [id number] [place] [address] 77447- 1271 Jun, Other chronic pain G89.29 [facility], [place] [address] [id number] [address] 4480 Apr, Other chronic pain G89.29 [facility], [place] [id number] [place] [address] 32393- 0045 Mar, Other chronic pain G89.29 [facility] [id number] [place] [address] 04293- 6105 Mar, Decreased renal function N28.9 [facility] [id number] [place] [address] 65005- 0247 Feb, Xyphoidalgia R07.89 [facility], [place] [id number] [place] [address] 30595- 8844 January, Arthralgia, unspecified joint M25.50 and Other chronic pain G89.29 [facility] [id number] [place] [address] 69331- 2062 Dec, Drug-induced constipation K59.03 ; Fatigue, unspecified type R53.83 ; Forgetfulness R68.89 ; Other chronic pain G89.29 and Primary insomnia F51.01 [facility], [place] [id number] [place] [address] 96482- 4076 Nov, [facility] [id number] [place] [address] 54673- 6802 Oct, Other chronic pain G89.29 [facility] [id number] [place] [address] 90177- 3873 Sep, Other chronic pain G89.29 [facility] [id number] [place] [address] 17176- 5312 Sep, Other chronic pain G89.29 [facility] [id number] [place] [address] 57349- 5269 Aug, Other chronic pain G89.29 [facility] [id number] [place] [address] 69255- 1585 Jul, Other chronic pain G89.29 ; Encounter for immunization Z23 and Side effects of treatment, initial encounter T88.9XXA [place] [id number] [place] [address] 42204- 8071 07 Jul, 2017 Other chronic pain G89.29 [facility] [address] 45686 -1303 Jul, [place] [address] 28884- 2631 Jul, Encounter for immunization Z23 [place] [address] 34168- 9436 Jun, Hypertension I10 ; Other headache syndrome G44.89 ; Post concussion syndrome F07.81 and Other chronic pain G89.29 [place] [address] 49367- 0958 May, [facility] [address] 44334- 3951 May, Migraine without aura and without status migrainosus, not intractable G43.009 [place] [address] 23255- 3873 22 May, 2017 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 29990- 6747 May, Other chronic pain G89.29 [place] [address] 11054- 5751 Apr, Chronic obstructive pulmonary disease, unspecified COPD type J44.9 [facility] [place] [address] 33127- 3247 Apr, Chronic obstructive pulmonary disease, unspecified COPD type J44.9 [place] [address] 00388- 2287 16 Apr, 2017 Other chronic pain G89.29 ; Irritable bowel syndrome with diarrhea K58.0 and Hypercholesterolemia E78.00 [place] [address] 95242- 5103 15 Apr, 2017 Other chronic pain G89.29 [facility], [place] [address] [address] 2293 Mar, Other chronic pain G89.29 [facility], [place] [id number] [place] [address] 57046- 1839 Feb, 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 [facility], [place] [id number] [place] [address] 84362- 6980 Feb, Other chronic pain G89.29 [facility], [place] [id number] [place] [address] 79273- 6792 Feb, [facility], [place] [id number] [place] [address] 68571- 8662 January, [facility], [place] [id number] [place] [address] 66405- 8821 January, Other chronic pain G89.29 [facility], [place] [id number] [place] [address] 84218- 4279 January, [facility], [place] [id number] [place] [address] 98723- 3239 January, [facility], [place] [id number] [place] [address] 86728- 4994 January, Other chronic pain G89.29 ; Irritable bowel syndrome with diarrhea K58.0 and Hypercholesterolemia E78.00 [facility], [place] [id number] [place] [address] 24484- 8972 January, Other chronic pain G89.29 ; Hypertension I10 ; Irritable bowel syndrome with diarrhea K58.0 ; Chronic obstructive pulmonary disease, unspecified COPD type J44.9 and Venous vascular malformations Q27.9 [facility] [id number] [place] [address] 73187 -3210 January, Acute otitis externa of right ear, unspecified type H60.501 [facility], [place] [id number] [place] [address] 56132- 7329 Dec, Other chronic pain G89.29 [facility], [place] [address] [address] 2108 Dec, Hypertension I10 [facility], [place] [id number] [place] [address] 04967- 6102 Nov, Other chronic pain G89.29 [facility], [place] [id number] [place] [address] 54211- 6424 Oct, Other chronic pain G89.29 [facility], [place] [id number] [place] [address] 44825- 1892 Sep, Other chronic pain G89.29 [facility], [place] [id number] [place] [address] 67546- 4857 Sep, Hypertension I10 [facility], [place] [id number] [place] [address] 45773- 1010 Sep, Other chronic pain G89.29 [facility], [place] [id number] [place] [address] 17839- 7743 Aug, Arthralgia, unspecified joint M25.50 ; Other chronic pain G89.29 ; Obstructive sleep apnea G47.33 and Idiopathic sleep related nonobstructive alveolar 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 [facility], [place] [id number] [place] [address] 95723- 3633 Aug, [facility], [place] [id number] [place] [address] 27833- 1064 Aug, Other chronic pain G89.29 [facility], [place] [id number] [place] [address] 61285- 7949 Jul, Chronic obstructive pulmonary disease, unspecified COPD type J44.9 and Diarrhea, unspecified type R19.7 [facility], [place] [id number] [place] [address] 66141- 6420 Jul, Other chronic pain G89.29 [facility], [place] [id number] [place] [address] 83237- 7942 Jul, Skin tags, multiple acquired L91.8 [facility], [place] [id number] [place] [address] 27515- 2378 Jun, [facility], [place] [id number] [place] [address] 89494- 4047 Jun, Hypertension I10 [facility], [place] [address] 27375- 4989 May, Mouth pain K13.79 and Other chronic pain G89.29 [facility], [place] [id number] [place] [address] 50130- 2157 May, [facility], [place] [address] 23849- 3258 May, [facility], [place] [address] 25433- 6316 May, Pain in right knee M25.561 and Other chronic pain G89.29 [facility], [place] [id number] [place] [address] 50276- 9613 Apr, Cervicalgia M54.2 [facility] [place] [id number] [place] [address] 70776- 3068 Mar, Cervicalgia M54.2 [place] [id number] [place] [address] 94366- 7400 Feb, Fever, unspecified fever cause R50.9 and Arthralgia, unspecified joint M25.50 [facility], [place] [id number] [place] [address] 26602- 9116 15 Feb, 2016 Hypertension I10 and Chronic pain syndrome G89.4 [facility], [place] [id number] [place] [address] 46898- 1967 Feb, Cervicalgia M54.2 [facility], [place] [id number] [place] [address] 75659- 9152 January, [facility], [place] [address] 52246- 7345 13 Dec, 2015 Chest pain R07.9 ; Family history of early CAD Z82.49 ; Hypertension I10 ; Fatigue R53.83 and History of IBS Z87.19 [facility] [id number] [place] [address] 88531- 5969 Dec, [place] [address] 50976- 1701 Nov, Allergic rhinitis J30.9 [place] [address] 74167- 8257 Nov, [place] [address] 10274- 3390 Nov, Hypertension I10 and Anxiety F41.9 [place] [address] 20463- 5487 Nov, [place] [address] 86452- 7146 Oct, [place] [address] 84136- 8199 Oct, Chest pain R07.9 ; Family history of early CAD Z82.49 ; Hypertension I10 ; Fatigue R53.83 and History of IBS Z87.19 [place] [address] 91713- 5457 Oct, [place] [address] 64446- 4504 Oct, Chest pain, unspecified R07.9 [place] [address] 21008- 0660 Oct, Chest pain, unspecified R07.9 ; Irritable bowel syndrome with diarrhea K58.0 ; Fatigue R53.83 and Degenerative disc disease, cervical M50.30 [place] [address] 61090- 1919 Oct, [facility], [place] [id number] [place] [address] 07296- 1903 Oct, [facility], [place] [id number] [place] [address] 80227- 1785 Sep, [facility], [place] [id number] [place] [address] 26309- 1013 Sep, [facility], [place] [id number] [place] [address] 013565- 3659 Aug, [facility], [place] [id number] [place] [address] 617799- 5724 Aug, [facility], [place] [id number] [place] [address] 925562- 5608 Aug, [facility], [place] [id number] [place] [address] 11735- 5142 Jul, Cervicalgia M54.2 ; Headache R51 ; Post-traumatic headache, unspecified, not intractable G44.309 and Unspecified intracranial injury without loss of consciousness, sequela S06.9X0S [facility], [place] [id number] [place] [address] 29727- 0818 Jul, [facility], [place] [id number] [place] [address] 08181- 1554 Jul, [facility], [place] [id number] [place] [address] 274745- 7892 Jun, [facility], [place] [id number] [place] [address] 12505- 0926 Jun, Encounter for immunization Z23 [facility], [place] [address] 72835- 8205 Jun, [facility], [place] [id number] [place] [address] 14705- 7504 May, [facility], [place] [id number] [place] [address] 667338- 6277 May, [facility] [place] [facility] [address] [id number] [place] [address]- 5821 Apr, [facility] [place] [facility] [address] [id number] [place] [address]- 5728 Apr, [facility] [place] [facility] [address] [id number] [place] [address]- 7877 Apr, [facility] [place] [facility] [address] [id number] [place] [address]- 0675 Mar, [facility] [place] [facility] [address] [id number] [place] [address]- 8591 Mar, [facility] [place] [facility] [address] [id number] [place] [address]- 5466 Mar, [facility] [place] [facility] [address] [id number] [place] [address]- 9403 Feb, [facility] [place] [facility] [address] [id number] [place] [address]- 0543 Feb, [facility] [place] [facility] [address] [id number] [place] [address]- 2403 January, [facility] [place] [facility] [address] [id number] [place] [address]- 7127 January, [facility] [place] [facility] [address] [id number] [place] [address]- 0566 Dec, [facility] [place] [facility] [address] [id number] [place] [address]- 7056 Dec, [facility] [place] [facility] [address] [id number] [place] [address]- 3105 Nov, [facility] [place] [facility] [address] [id number] [place] [address]- 9077 Nov, [facility] [place] [facility] [address] [id number] [place] [address]- 2129 Nov, [facility] [place] [facility] [address] [id number], [place] [address]- 2066 Nov, [facility] [place] [facility] [address] [id number] [place] [address]- 5043 Nov, [facility] [place] [facility] [address] [id number] [place] [address]- 5318 Nov, [facility] [place] [facility] [address] [id number] [place] [address]- 2805 Nov, [facility] [place] [facility] [address] [id number] [place] [address]- 0498 Nov, [facility] [place] [facility] [address] [id number] [place] [address]- 6170 Nov, [facility] [place] [facility] [address] [facility] [id number] [place] [address]- 7591 Nov, [facility] [place] [facility] [address] [facility] [id number] [place] [address]- 4365 Nov, [facility] [place] [facility] [address] [facility] [id number] [place] [address]- 4150 Nov, [facility] [place] [facility] [address] [id number] [place] [address]- 3879 Nov, [facility] [place] [facility] [address] [facility] [id number] [place] [address]- 9007 Nov, [facility] [place] [facility] [address] [id number] [place] [address]- 3087 Oct, [facility] [place] [facility] [address] [id number] [place] [address]- 7671 Oct, [facility] [place] [facility] [address] [id number] [place] [address]- 8906 Oct, [facility] [place] [facility] [address] [id number] [place] 1000 Oct, [facility] [place] [facility] [address] [id number], [place] [address]- 3619 Sep, [facility] [place] [facility] [address] [id number] [place] [address]- 5356 Sep, [facility] [place] [facility] [address] [id number] [place] [address]- 6575 Sep, [facility] [place] [facility] [address] [id number] [place] [address]- 4659 Sep, [facility] [place] [facility] [address] [id number] [place] [address]- 5482 Sep, [facility] [place] [facility] [address] [id number] [place] [address]- 4983 Sep, [facility] [place] [facility] [address] [id number] [place] [address]- 3297 Sep, [facility] [place] [facility] [address] [id number] [place] [address]- 7757 Sep, [facility] [place] [facility] [address] [id number] [place] [address]- 0335 Aug, [facility] [place] [facility] [address] [id number] [place] [address]- 6525 Aug, [facility] [place] [facility] [address] [id number] [place] [address]- 2472 Aug, [facility] [place] [facility] [address] [id number] [place] [address]- 0056 Aug, [facility] [place] [facility] [address] [id number] [place] [address]- 4986 Aug, [facility] [place] [facility] [address] [id number] [place] [address]- 4006 Aug, [facility] [place] [facility] [address] [id number] [place] [address]- 6930 Aug, [facility] [place] [facility] [address] [id number] [place] [address]- 4600 Aug, [facility] [place] [facility] [address] [id number], [place] [address]- 7601 Jul, [facility] [place] [facility] [address] [id number] [place] [address]- 7988 Jul, [facility] [place] [facility] [address] [id number] [place] [address]- 0373 Jul, [facility] [place] [facility] [address] [id number] [place] [address]- 1930 Jul, [facility] [place] [facility] [address] [id number] [place] [address]- 4559 Jul, [facility] [place] [facility] [address] [id number] [place] [address]- 2967 Jul, [facility] [place] [facility] [address] [id number] [place] [address]- 1269 Jul, [facility] [place] [facility] [address] [id number] [place] [address]- 2674 Jul, [facility] [place] [facility] [address] [id number], [place] [address]- 9453 Jul, [facility] [place] [facility] [address] [id number], [place] [address]- 2722 Jul, [facility] [place] [facility] [address] [id number], [place] [address]- 3753 Jul, [facility] [place] [facility] [address] [id number], [place] [address]- 3062 Jun, [facility] [place] [facility] [address] [id number], [place] [address]- 9885 Jun, [facility] [place] [facility] [address] [id number] [place] [address]- 9712 Jun, [facility] [place] [facility] [address] [id number], [place] [address]- 6236 Jun, [facility] [place] [facility] [address] [id number], [place] [address]- 8955 Jun, [facility] [place] [facility] [address] [id number] [place] [address]- 2132 Jun, 2013 [facility] [place] [facility] [address] [id number] [place] [address]- 5805 Jun, [facility] [place] [facility] [address] [id number] [place] [address]- 5349 Jun, [facility] [place] [facility] [address] [id number] [place] [address]- 6420 Jun, [facility] [place] [facility] [address] [id number] [place] [address]- 8704 24 Jun, 2014 [facility] [place] [facility] [address] [id number] [place] [address]- 4079 Jun, [facility] [place] [facility] [address] [id number] [place] [address]- 6875 Jun, [facility] [place] [facility] [address] [id number] [place] [address]- 1133 Jun, 2013 [facility] [place] [facility] [address] [id number] [place] [address]- 1327 Jun, [facility] [place] [facility] [address] [id number] [place] [address]- 6083 Jun, [facility] [place] [facility] [address] [id number] [place] [address]- 1636 Jun, [facility] [place] [facility] [address] [id number] [place] [address]- 5044 Jun, 2013 [facility] [place] [facility] [address] [id number] [place] [address]- 3492 25 May, 2013 [facility] [place] [facility] [address] [id number] [place] 2043 11 May, 2013 [facility] [place] [facility] [address] [id number] [place] [address]- 3369 11 May, 2013 [facility] [place] [facility] [address] [id number] [place] 8215 May, [facility] [place] [facility] [address] [id number] [place] [address]- 2289 May, [facility] [place] [facility] [address] [id number] [place] [address] May, [facility] [place] [facility] [address] [id number] [place] [address] May, [facility] [place] [facility] [address] [id number] [place] [address] Apr, [facility] [place] [facility] [address] [id number] [place] [address] Apr, [facility] [place] [facility] [address] [id number] [place] [address] Apr, [facility] [place] [facility] [address] [id number] [place] [address] Apr, [facility] [place] [facility] [address] [id number] [place] [address] Apr, [facility] [place] [facility] [address] [id number] [place] [address] Apr, [facility] [place] [facility] [address] [id number] [place] [address] Apr, [facility] [place] [facility] [address] [id number] [place] [address] Apr, [facility] [place] [facility] [address] [id number] [place] [address] Apr, [facility] [place] [facility] [address] [id number] [place] [address] Apr, [facility] [place] [facility] [address] [id number] [place] [address] Apr, [facility] [place] [facility] [address] [id number] [place] [address] Mar, [facility] [place] [facility] [address] [id number] [place] [address] Mar, [facility] [place] [facility] [address] [id number] [place] [address] Mar, [facility] [place] [facility] [address] [id number] [place] [address] Mar, [facility] [place] [facility] [address] [id number] [place] [address] Feb, [facility] [place] [facility] [address] [id number] [place] [address] Feb, [facility] [place] [facility] [address] [id number] [place] [address] Feb, [facility] [place] [facility] [address] [id number] [place] [address] Feb, [facility] [place] [facility] [address] [id number] [place] [address] Feb, [facility] [place] [facility] [address] [id number] [place] [address] Feb, [facility] [place] [facility] [address] [id number] [place] [address] Feb, [facility] [place] [facility] [address] [id number] [place] [address] Feb, [facility] [place] [facility] [address] [id number] [place] [address] January, [facility] [place] [facility] [address] [id number] [place] [address] January, [facility] [place] [facility] [address] [id number] [place] [address] January, [facility] [place] [facility] [address] [id number] [place] [address] January, [facility] [place] [facility] [address] [id number] [place] [address] Dec, [facility] [place] [facility] [address] [id number] [place] [address] Dec, [facility] [place] [facility] [address] [id number] [place] [address] Dec, [facility] [place] [facility] [address] [id number] [place] [address] Dec, [facility] [place] [facility] [address] [id number] [place] [address] Dec, [facility] [place] [facility] [address] [id number] [place] [address] Dec, [facility] [place] [facility] [address] [id number] [place] [address] Dec, [facility] [place] [facility] [address] [id number] [place] [address]- [address] Dec, [facility] [place] [facility] [address] [id number] [place] [address] Dec, [facility] [place] [facility] [address] [id number] [place] [address] Dec, [facility] [place] [facility] [address] [id number] [place] [address] Nov, [facility] [place] [facility] [address] [id number] [place] [address] Nov, [facility] [place] [facility] [address] [id number] [place] [address] Nov, [facility] [place] [facility] [address] [id number] [place] [address] Nov, [facility] [place] [facility] [address] [id number] [place] [address] Nov, [facility] [place] [facility] [address] [id number] [place] [address] Oct, [facility] [place] [facility] [address] [id number] [place] [address] Oct, [facility] [place] [facility] [address] [id number] [place] [address] Sep, [facility] [place] [facility] [address] [id number] [place] [address] Sep, [facility] [place] [facility] [address] [facility] [id number] [place] [address] Sep, [facility] [place] [facility] [address] [id number] [place] [address] Sep, [facility] [place] [facility] [address] [id number] [place] [address] Aug, [facility] [place] [facility] [address] [id number] [place] [address] Aug, [facility] [place] [facility] [address] [facility] [id number] [place] [address] Aug, [facility] [place] [facility] [address] [id number], [place] [address] Aug, [facility] [place] [facility] [address] [facility] [id number] [place] [address] Aug, [facility] [place] [facility] [address] [facility] [id number] [place] [address] Aug, [facility] [place] [facility] [address] [facility] [id number], [place] [address] Aug, [facility] [place] [facility] [address] [id number], [place] [address] Aug, [facility] [place] [facility] [address] [facility] [id number], [place] [address] Jul, [facility] [place] [facility] [address] [facility] [id number], [place] [address] Jul, [facility] [place] [facility] [address] [facility] [id number], [place] [address] Jul, [facility] [place] [facility] [address] [id number] [place] [address] 45[address] Jul, [facility] [address] [id number] [place] [address] 16[address] Jun, [facility] [place] [facility] [address] [id number] [place] [address]- 0686 Jun, [facility] [place] [facility] [address] [id number] [place] [address] Jun, [facility] [place] [facility] [address] [id number] [place] [address] Jun, [facility] [place] [facility] [address] [id number] [place] [address] 4605 Jun, [facility] [place] [facility] [address] [id number] [place] [address] May, [facility] [place] [facility] [address] [id number] [place] [address] 9325 Apr, [facility] [place] [facility] [address] [id number] [place] [address] 1477 Apr, [facility] [place] [facility] [address] [id number] [place] [address] Mar, [facility] [place] [facility] [address] [id number] [place] [address]- [address] Feb, [facility] [place] [facility] [address] [id number] [place] [address] Feb, [facility] [place] [facility] [address] [id number] [place] [address] January, [facility] [place] [facility] [address] [id number] [place] [address] January, [facility] [place] [facility] [address] [id number] [place] [address]46 January, [facility] [place] [facility] [address] [id number] [place] [address] Nov, [facility] [place] [facility] [address] [id number] [place] [address] 69[address] Oct, [facility] [place] [facility] [address] [id number] [place] [address] 0210 Oct, [facility] [place] [facility] [address] [id number] [place] [address] Oct, [facility] [place] [facility] [address] [id number] [place] [address] 4969 Sep, [facility] [place] [facility] [address] [id number] [place] [address] Sep, [facility] [place] [facility] [address] [id number] [place] [address]138 Aug, [facility] [place] [facility] [address] [id number] [place] [address] 9899 Aug, [facility] [place] [facility] [address] [id number] [place] [address] Jul, [facility] [place] [facility] [address] [id number] [place] [address] Jul, [facility] [place] [facility] [address] [id number], [place] [address] Jul, [facility] [place] [facility] [address] [id number], [place] [address] 97[address] Jul, [facility] [place] [facility] [address] [id number], [place] [address]- [address] Jul, [facility] [place] [facility] [address] [id number] [place] [address]- 8040 Jul, [facility] [place] [facility] [address] [id number], [place] [address] Jul, [facility] [place] [facility] [address] [id number], [place] [address] 3315 Jul, [facility] [place] [facility] [address] [id number], [place] [address] 96[address] Jul, [facility] [place] [facility] [address] [id number] [place] [address]- 9925 Jul, [facility] [place] [facility] [address] [facility] [id number][place] [address] Jul, [facility] [place] [facility] [address] [facility] [id number] [place] [address]- 9139 Jul, [facility] [place] [facility] [address] [id number] [place] [address]- 9297 Jul, [facility] [place] [facility] [address] [facility] [id number] [place] [address], [place] [address] 36[address] Jul, [facility] [place] [facility] [address] [facility] [id number] [place] [address]- 2819 Jun, [facility] [place] [facility] [id number] [place] [address] Jun, [facility] [place] [facility] [address] [facility] [id number] [place] [address]- 0348 Jun, [facility] [place] [facility] [address] [id number] [place] [address] Jun, [facility] [place] [facility] [address] [id number], [place] [address] 28[address] Jun, [facility] [place] [facility] [address] [facility] [id number], [place] [address]- 1190 Jun, [facility] [place] [facility] [address] [facility] [id number], [place] [address]- 6988 Jun, [facility] [place] [facility] [address] [facility] [id number], [place] [address]- 13[address] Apr, [facility] [place] [facility] [address] [facility] [id number], [place] [address]- 2671 Apr, [facility] [place] [facility] [address] [id number], [place] [address] 4185 Mar, [facility] [place] [facility] [address] [id number] [place] [address]- 4892 Feb, [facility] [place] [facility] [address] [id number] [place] [address]- 3769 Feb, [facility] [place] [facility] [address] [id number] [place] [address]- 7796 January, [facility] [place] [facility] [address] [id number] [place] [address]- 4790 January, [facility] [place] [facility] [address] [id number] [place] [address]- 5039 Dec, [facility] [place] [facility] [address] [id number] [place] [address]- 5893 Dec, [facility] [place] [facility] [address] [id number] [place] [address]- 4906 Nov, [facility] [place] [facility] [address] [id number] [place] [address]- 6622 Oct, [facility] [place] [facility] [address] [id number] [place] [address]- 8021 Oct, [facility] [place] [facility] [address] [id number] [place] [address]- 7337 Oct, [facility] [place] [facility] [address] [id number] [place] [address]- 6441 Sep, [facility] [place] [facility] [address] [id number] [place] [address]- 6218 Aug, [facility] [place] [facility] [address] [id number] [place] [address]- 4061 Aug, [facility] [place] [facility] [address] [id number] [place] [address]- 4654 Aug, [facility] [place] [facility] [address] [id number] [place] [address]- 4506 05 Aug, 2011 [facility] [place] [facility] [address] [id number], [place] [address]- 3119 02 Aug, 2011 [facility] [place] [facility] [address] [id number] [place] [address]- 8445 Jul, [facility] [place] [facility] [address] [id number] [place] [address]- 0827 Jul, [facility] [place] [facility] [address] [id number] [place] [address]- 4506 Jul, [facility] [place] [facility] [address] [id number] [place] [address]- 9528 08 Jul, 2011 [facility] [place] [facility] [address] [id number] [place] [address]- 4818 29 Aug, 2010 [facility] [place] [facility] [address] [id number] [place] [address]- 9517 28 Aug, 2010 [facility] [place] [facility] [address] [id number] [place] [address]- 2973 Aug, [facility] [place] [facility] [address] [id number] [place] [address]- 8138 Jun, [facility] [place] [facility] [address] [id number], [place] [address]- 9035 Jun, [facility] [place] [facility] [address] [id number] [place] [address]- 0286 Jun, [facility] [place] [facility] [address] [id number], [place] [address]- 2069 Jun, [facility] [place] [facility] [address] [id number], [place] [address]- 1254 Jun, [facility] [place] [facility] [address] [id number] [place] [address]- 5734 30 Jul, 2009 [facility] [place] [facility] [address] [id number], [place] [address]- 1830 Jul, [facility] [place] [facility] [address] [id number], [place] [address]- 3659 Jun, [facility] [place] [facility] [address] [facility] [id number] [place] [address]- 0095 Jun, IMMUNIZATIONS No Known Immunizations SOCIAL HISTORY Never Assessed REASON FOR VISIT Controlled Med Refill/PRN PLAN OF CARE VITAL SIGNS MEDICATIONS Medication Instructions Dosage Frequency Start Date End Date Duration Status Hydrocodone-Acetaminophen 7.5-325 MG Orally 3 times a day 1 tablet as needed for pain 8h Jun, 28 days Active RESULTS No Results PROCEDURES [...]
--- OUTSIDE RECORDS SUMMARY | 2018-12-19 18:41 | XMS REPORT ---
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 Role Phone LASHAY BLACK Unavailable PROBLEMS Type Condition ICD9-CM Code TLP84-IT Code Onset Dates Condition Status SNOMED Code Problem Irritable bowel syndrome with diarrhea K58.0 Active 275882986 Problem Venous vascular malformations Q27.9 Active 417573375 Problem Chronic obstructive pulmonary disease, unspecified COPD type J44.9 Active 02111329 Problem Primary insomnia F51.01 Active 0861777 Problem Migraine without aura and without status migrainosus, not intractable G43.009 Active 179182054 Problem 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 652916196 Problem Hypercholesterolemia E78.00 Active 90701946 Problem Post concussion syndrome F07.81 Active 97602327 Problem Other headache syndrome G44.89 Active 535672639 Problem Decreased renal function N28.9 Active 60108441 Problem Unspecified asthma, uncomplicated J45.909 Active 519297668 Problem Cervicalgia M54.2 Active 79043460 Problem Other chronic pain G89.29 Active 96625351 Problem Hypertension I10 Active 02853483 Problem Idiopathic sleep related nonobstructive alveolar 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 Active 03480255 Problem Anxiety F41.9 Active 81577720 Problem Obstructive sleep apnea G47.33 Active 13156156 ALLERGIES No Information ENCOUNTERS Encounter Location Date Diagnosis [facility] [address] [facility] [id number] [address] Apr, Other chronic pain G89.29 [facility] [address] [id number] [address] Mar, Other chronic pain G89.29 [facility] [address] [facility] [id number], [place] [address] Mar, Decreased renal function N28.9 [facility] [place] [facility] [id number] [place] [address] 44847- 3677 Feb, Xyphoidalgia R07.89 [facility] [id number] [place] [address] 86255- 6477 January, Arthralgia, unspecified joint M25.50 and Other chronic pain G89.29 [place] [address] [address]98- 2550 Dec, Drug-induced constipation K59.03 ; Fatigue, unspecified type R53.83 ; Forgetfulness R68.89 ; Other chronic pain G89.29 and Primary insomnia F51.01 [place] [address] 73831- 4486 Nov, [place] [address] 67476- 8847 Oct, Other chronic pain G89.29 [facility] [id number] [place] [address] 16623- 9019 Sep, Other chronic pain G89.29 [facility] [address] [address]79- 2884 Sep, Other chronic pain G89.29 [place] [id number] [place] [address] 40935- 1045 Aug, Other chronic pain G89.29 [facility] [address] 75292- 2996 Jul, Other chronic pain G89.29 ; Encounter for immunization Z23 and Side effects of treatment, initial encounter T88.9XXA [place] [address] 11095- 5027 Jul, Other chronic pain G89.29 [facility] [id number] [place] [address] 06004 -3883 Jul, [facility] [address] [place] [address]- 6257 Jul, Encounter for immunization Z23 [place] [address] 09208- 5260 Jun, Hypertension I10 ; Other headache syndrome G44.89 ; Post concussion syndrome F07.81 and Other chronic pain G89.29 [place] [address] 44478- 3651 May, [place] [address] 26504- 4268 May, Migraine without aura and without status migrainosus, not intractable G43.009 [place] [address] 27488- 2282 May, 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 56552- 5303 May, Other chronic pain G89.29 [place] [address] 75258- 7166 Apr, Chronic obstructive pulmonary disease, unspecified COPD type J44.9 [place] [address] 17661- 4558 Apr, Chronic obstructive pulmonary disease, unspecified COPD type J44.9 [place] [address] 68781- 9659 Apr, Other chronic pain G89.29 ; Irritable bowel syndrome with diarrhea K58.0 and Hypercholesterolemia E78.00 [place] [id number] [place] [address] 84943- 3500 Apr, Other chronic pain G89.29 [place] [address] 73179- 0592 Mar, Other chronic pain G89.29 [place] [address] 68258- 4061 Feb, 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 [facility] [address], [place] [address] 2473 Feb, Other chronic pain G89.29 [facility] [id number] [place] [address] 91180- 5454 Feb, [facility] [id number] [place] [address] 64805- 2828 January, [facility] [id number] [place] [address] 09435- 7572 January, Other chronic pain G89.29 [facility] [id number] [place] [address] 09046- 6325 January, [facility] [id number] [place] [address] 40131- 1968 January, [facility] [id number] [place] [address] 54571- 3861 January, Other chronic pain G89.29 ; Irritable bowel syndrome with diarrhea K58.0 and Hypercholesterolemia E78.00 [facility] [id number] [place] [address] 78931- 1296 January, Other chronic pain G89.29 ; Hypertension I10 ; Irritable bowel syndrome with diarrhea K58.0 ; Chronic obstructive pulmonary disease, unspecified COPD type J44.9 and Venous vascular malformations Q27.9 [facility] [address], [place] [address] January, Acute otitis externa of right ear, unspecified type H60.501 [facility] [address] [place] [address] 63764- 0415 Dec, Other chronic pain G89.29 [facility] [id number] [place] [address] 92985- 9365 Dec, Hypertension I10 [facility] [id number] [place] [address] 48123- 4925 Nov, Other chronic pain G89.29 [facility] [id number] [place] [address] 82190- 3730 Oct, Other chronic pain G89.29 [facility] [id number] [place] [address] 11159- 7477 Sep, Other chronic pain G89.29 [facility] [address] 99812- 2640 Sep, Hypertension I10 [facility] [id number] [place] [address] 66201- 8143 Sep, Other chronic pain G89.29 [facility] [address] 93381- 0241 Aug, Arthralgia, unspecified joint M25.50 ; Other chronic pain G89.29 ; Obstructive sleep apnea G47.33 and Idiopathic sleep related nonobstructive alveolar 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 [place] [id number] [place] [address] 11845- 1360 Aug, [facility] [address] 88200- 3451 Aug, Other chronic pain G89.29 [facility] [id number] [place] [address] 18442- 4514 Jul, Chronic obstructive pulmonary disease, unspecified COPD type J44.9 and Diarrhea, unspecified type R19.7 [facility] [id number] [place] [address] 04570- 3041 Jul, Other chronic pain G89.29 [facility] [id number] [place] [address] 07020- 4240 Jul, Skin tags, multiple acquired L91.8 [facility] [id number] [place] [address] 05482- 8667 Jun, [facility] [address] 95845- 7587 Jun, Hypertension I10 [place] [id number] [place] [address] 85131- 7398 May, Mouth pain K13.79 and Other chronic pain G89.29 [place] [id number] [place] [address] 05554- 3166 May, [place] [address] 53324- 9117 May, [place] [address] 54296- 1085 May, Pain in right knee M25.561 and Other chronic pain G89.29 [place] [address] 71317- 1399 Apr, Cervicalgia M54.[address] 56413- 8704 Mar, Cervicalgia M54.2 [place] [address] 30967- 5945 Feb, Fever, unspecified fever cause R50.9 and Arthralgia, unspecified joint M25.50 [place] [id number] [place] [address] 95624- 0490 15 Feb, 2016 Hypertension I10 and Chronic pain syndrome G89.4 [place] [id number] [place] [address] 13061- 0492 Feb, Cervicalgia M54.2 [place] [id number] [place] [address] 19882- 5621 January, [place] [address] 77715- 9437 13 Dec, 2015 Chest pain R07.9 ; Family history of early CAD Z82.49 ; Hypertension I10 ; Fatigue R53.83 and History of IBS Z87.19 [place] [id number] [place] [address] 11680- 2241 Dec, [facility] [id number] [place] [address] 79053- 1324 Nov, Allergic rhinitis J30.9 [facility] [address] 85494- 4478 Nov, [facility] [address] 58374- 0281 Nov, Hypertension I10 and Anxiety F41.9 [facility] [address] 30987- 5755 Nov, [place] [address] 19293- 4623 Oct, [place] [address] 41717- 1186 Oct, Chest pain R07.9 ; Family history of early CAD Z82.49 ; Hypertension I10 ; Fatigue R53.83 and History of IBS Z87.19 [place] [id number] [place] [address] 03681- 8758 Oct, [place] [address] 56592- 0737 Oct, Chest pain, unspecified R07.9 [place] [id number] [place] [address] 81758- 3522 08 Oct, 2015 Chest pain, unspecified R07.9 ; Irritable bowel syndrome with diarrhea K58.0 ; Fatigue R53.83 and Degenerative disc disease, cervical M50.30 [facility] [id number] [place] [address] 36769- 0264 Oct, [facility] [id number] [place] [address] 68744- 7928 Oct, [facility] [id number] [place] [address] 48606- 6283 Sep, [facility] [address] [id number] [address]- 1029 Sep, [facility] [id number] [place] [address] 00091- 2865 Aug, [facility] [id number] [place] [address] 62875- 5154 Aug, [facility] [id number] [place] [address] 352105- 4584 Aug, [facility] [id number] [place] [address] 42422- 4854 Jul, Cervicalgia M54.2 ; Headache R51 ; Post-traumatic headache, unspecified, not intractable G44.309 and Unspecified intracranial injury without loss of consciousness, sequela S06.9X0S [facility] [address] [place] [address] 50879- 6851 Jul, [facility] [id number] [place] [address] 17960- 1375 Jul, [facility] [address] [place] [address] 54101- 6877 Jun, [facility] [id number] [place] [address] 67904- 6563 Jun, Encounter for immunization Z23 [facility] [address] [place] [address] 37377- 4641 Jun, [facility] [id number] [place] [address] 17959- 9396 May, [facility] [address] [place] [address] 11662- 3896 May, [facility] [id number] [place] [address] 76797- 0345 Apr, [facility] [address] [place] [address] 18690- 6543 Apr, [facility] [id number] [address]- 7311 Apr, [facility] [address] [id number] [place] [address]- 5243 Mar, [facility] [place] [facility] [address] [id number] [place] [address]- 8556 Mar, [facility] [place] [facility] [address] [id number] [place] [address]- 9181 Mar, [facility] [place] [facility] [address] [id number] [place] [address]- 1164 Feb, [facility] [place] [facility] [address] [id number] [place] [address]- 6898 Feb, [facility] [place] [facility] [address] [id number] [place] [address]- 2594 January, [facility] [place] [facility] [address] [id number] [place] [address]- 6003 January, [facility] [place] [facility] [address] [id number] [place] [address]- 5067 Dec, [facility] [place] [facility] [address] [id number] [place] [address]- 4840 Dec, [facility] [place] [facility] [address] [id number] [place] [address]- 4650 Nov, [facility] [place] [facility] [address] [id number] [place] [address]- 8919 Nov, [facility] [place] [facility] [address] [id number] [place] [address]- 9911 Nov, [facility] [place] [facility] [address] [id number] [place] [address]- 4886 Nov, [facility] [place] [facility] [address] [id number] [place] [address]- 0219 Nov, [facility] [place] [facility] [address] [id number] [place] [address]- 9343 Nov, [facility] [place] [facility] [address] [id number] [place] [address]- 3466 Nov, [facility] [place] [facility] [address] [id number] [place] [address]- 0348 Nov, [facility] [place] [facility] [address] [id number] [place] [address]- 5405 Nov, [facility] [place] [facility] [address] [id number] [place] [address]- 7419 Nov, [facility] [place] [facility] [address] [id number] [place] [address]- 6057 Nov, [facility] [place] [facility] [address] [id number] [place] [address]- 3511 Nov, [facility] [place] [facility] [address] [id number] [place] [address]- 8131 Nov, [facility] [place] [facility] [address] [id number] [place] [address]- 0045 Nov, [facility] [place] [facility] [address] [id number] [place] [address]- 1377 Oct, [facility] [place] [facility] [address] [id number] [place] [address]- 8213 Oct, [facility] [place] [facility] [address] [id number] [place] [address]- 9076 Oct, [facility] [place] [facility] [address] [id number], [place] [address]- 5650 Oct, [facility] [place] [facility] [address] [id number] [place] [address]- 7789 Sep, [facility] [place] [facility] [address] [id number] [place] [address]- 8070 Sep, [facility] [place] [facility] [address] [id number] [place] [address]- 0718 Sep, [facility] [place] [facility] [address] [id number] [place] [address]- 0004 Sep, [facility] [address] [id number] [place] [address]- 8430 Sep, [facility] [place] [facility] [address] [id number] [place] [address]- 9884 Sep, [facility] [place] [facility] [address] [id number] [place] [address]- 3425 Sep, [facility] [place] [facility] [address] [id number] [place] [address]- 5578 Sep, [facility] [place] [facility] [address] [id number] [place] [address]- 1463 Aug, [facility] [place] [facility] [address] [id number] [place] [address]- 8936 Aug, [facility] [place] [facility] [address] [id number] [place] [address]- 9076 Aug, [facility] [place] [facility] [address] [id number] [place] [address]- 8585 Aug, [facility] [place] [facility] [address] [id number] [place] [address]- 5875 Aug, [facility] [place] [facility] [address] [id number] [place] [address]- 8029 Aug, [facility] [place] [facility] [address] [id number] [place] [address]- 7667 Aug, [facility] [place] [facility] [address] [id number] [place] [address]- 8119 Aug, [facility] [place] [facility] [address] [id number] [place] [address]- 7315 Jul, [facility] [place] [facility] [address] [id number] [place] [address]- 6789 Jul, [facility] [place] [facility] [address] [id number] [place] [address]- 7182 Jul, [facility] [place] [facility] [address] [id number] [place] [address]- 1043 Jul, [facility] [place] [facility] [address] [id number] [place] [address]- 0268 Jul, [facility] [place] [facility] [address] [id number] [place] [address]- 2603 Jul, [facility] [place] [facility] [address] [id number] [place] [address]- 8644 Jul, [facility] [place] [facility] [address] [id number] [place] [address]- 0435 Jul, [facility] [place] [facility] [address] [id number] [place] [address]- 0346 Jul, [facility] [place] [facility] [address] [id number] [place] [address]- 1511 Jul, [facility] [place] [facility] [address] [id number] [place] [address]- 0023 Jul, [facility] [place] [facility] [address] [id number] [place] [address]- 7042 Jun, [facility] [place] [facility] [address] [id number] [place] [address]- 5112 Jun, [facility] [place] [facility] [address] [id number] [place] [address]- 0178 Jun, [facility] [place] [facility] [address] [id number] [place] [address]- 3063 Jun, [facility] [place] [facility] [address] [id number] [place] [address]- 2802 Jun, [facility] [place] [facility] [address] [id number] [place] [address]- 7173 Jun, [facility] [place] [facility] [address] [id number] [place] [address]- 7622 Jun, [facility] [place] [facility] [address] [id number], [place] [address]- 5850 Jun, [facility] [place] [facility] [address] [id number] [place] [address]- 3530 Jun, [facility] [place] [facility] [address] [id number] [place] [address]- 8885 Jun, [facility] [place] [facility] [address] [id number] [place] [address]- 4677 Jun, [facility] [place] [facility] [address] [id number] [place] [address]- 9585 Jun, [facility] [place] [facility] [address] [id number] [place] [address]- 7107 Jun, [facility] [place] [facility] [address] [id number] [place] [address]- 6274 Jun, [facility] [place] [facility] [address] [id number] [place] [address]- 2383 Jun, [facility] [place] [facility] [address] [id number] [place] [address]- 1625 Jun, [facility] [place] [facility] [address] [id number] [place] [address]- 1326 Jun, [facility] [place] [facility] [address] [id number] [place] [address]- 6836 25 May, 2013 [facility] [place] [facility] [address] [id number], [place] [address]- 4919 11 May, 2013 [facility] [place] [facility] [address] [id number], [place] [address]- 1827 11 May, 2013 [facility] [place] [facility] [address] [id number] [place] [address]- 7797 04 Sep, 2013 [facility] [place] [facility] [address] [id number] [place] [address]- 7661 04 Sep, 2013 [facility] [place] [facility] [address] [id number] [place] [address]- 8070 03 Sep, 2013 [facility] [place] [facility] [address] [id number] [place] [address]- 7284 May, [facility] [place] [facility] [address] [id number] [place] [address]- 3174 Apr, [facility] [place] [facility] [address] [id number] [place] [address]- 7836 Apr, [facility] [place] [facility] [address] [id number] [place] [address]- 9209 Apr, [facility] [place] [facility] [address] [id number] [place] [address]- 1583 Apr, [facility] [place] [facility] [address] [id number] [place] [address]- 0589 Apr, [facility] [place] [facility] [address] [id number] [place] [address]- 3956 Apr, [facility] [place] [facility] [address] [id number] [place] [address]- 3043 Apr, [facility] [place] [facility] [address] [id number] [place] [address]- 1378 Apr, [facility] [place] [facility] [address] [id number] [place] [address]- 7513 Apr, [facility] [place] [facility] [address] [id number] [place] [address]- 9447 Apr, [facility] [place] [facility] [address] [id number] [place] [address]- 1399 Apr, [facility] [place] [facility] [address] [id number] [place] [address]- 4704 Mar, [facility] [place] [facility] [address] [id number] [place] [address]- 6647 Mar, [facility] [place] [facility] [address] [id number] [place] [address]- 2391 Mar, [facility] [place] [facility] [address] [id number] [place] [address]- 7636 Mar, [facility] [place] [facility] [address] [id number] [place] [address] Feb, [facility] [place] [facility] [address] [id number] [place] [address] Feb, [facility] [place] [facility] [address] [id number] [place] [address] Feb, [facility] [place] [facility] [address] [id number] [place] [address] Feb, [facility] [place] [facility] [address] [id number] [place] [address] Feb, [facility] [place] [facility] [address] [id number] [place] [address] Feb, [facility] [place] [facility] [address] [id number] [place] [address] Feb, [facility] [place] [facility] [address] [id number] [place] [address] Feb, [facility] [place] [facility] [address] [id number] [place] [address] January, [facility] [place] [facility] [address] [id number] [place] [address] January, [facility] [place] [facility] [address] [id number] [place] [address] January, [facility] [place] [facility] [address] [id number] [place] [address] January, [facility] [place] [facility] [address] [id number] [place] [address] Dec, [facility] [place] [facility] [address] [id number] [place] [address] Dec, [facility] [place] [facility] [address] [id number] [place] [address] Dec, [facility] [place] [facility] [address] [id number] [place] [address] Dec, [facility] [address] [id number] [place] [address] Dec, [facility] [place] [facility] [address] [id number] [place] [address] Dec, [facility] [place] [facility] [address] [id number] [place] [address] Dec, [facility] [place] [facility] [address] [id number] [place] [address] Dec, [facility] [place] [facility] [address] [id number] [place] [address]- [address] Dec, [facility] [place] [facility] [address] [id number] [place] [address] Dec, [facility] [place] [facility] [address] [id number] [place] [address] Nov, [facility] [place] [facility] [address] [id number] [place] [address]- [address] Nov, [facility] [place] [facility] [address] [id number] [place] [address] Nov, [facility] [place] [facility] [address] [id number] [place] [address] Nov, [facility] [place] [facility] [address] [id number] [place] [address] Nov, [facility] [place] [facility] [address] [id number] [place] [address] Oct, [facility] [place] [facility] [address] [id number] [place] [address] Oct, [facility] [place] [facility] [address] [id number] [place] [address] Sep, [facility] [place] [facility] [address] [id number] [place] [address] Sep, [facility] [place] [facility] [address] [id number] [place] [address] Sep, [facility] [place] [facility] [address] [id number] [place] [address] Sep, [facility] [place] [facility] [address] [id number] [place] [address] Aug, [facility] [place] [facility] [address] [id number] [place] [address]85 Aug, [facility] [place] [facility] [address] [id number] [place] [address] Aug, [facility] [place] [facility] [address] [id number] [place] [address] Aug, [facility] [place] [facility] [address] [id number] [place] [address] Aug, [facility] [place] [facility] [address] [id number] [place] [address] Aug, [facility] [place] [facility] [address] [id number] [place] [address] Aug, [facility] [place] [facility] [address] [id number] [place] [address] Aug, [facility] [place] [facility] [address] [facility] [id number] [place] [address] Jul, [facility] [place] [facility] [address] [id number] [place] [address] Jul, [facility] [place] [facility] [address] [id number] [place] [address] Jul, [facility] [place] [facility] [address] [id number] [place] [address] Jul, [facility] [place] [facility] [address] [id number] [place] [address] Jun, [facility] [place] [facility] [address] [id number] [place] [address] 15 Jun, 2013 [facility] [address] [id number] [place] [address] Jun, [facility] [place] [facility] [address] [id number] [place] [address] Jun, [facility] [place] [facility] [address] [facility] [id number] [place] [address]46 Jun, [facility] [place] [facility] [address] [id number] [place] [address] May, [facility] [place] [facility] [address] [id number] [place] [address] Apr, [facility] [place] [facility] [address] [id number] [place] [address] Apr, [facility] [place] [facility] [address] [id number] [place] [address] Mar, [facility] [place] [facility] [address] [id number], [place] [address] Feb, [facility] [place] [facility] [address] [id number], [place] [address] Feb, [facility] [place] [facility] [address] [facility] [id number], [place] [address] January, [facility] [place] [facility] [address] [id number], [place] [address] January, [facility] [place] [facility] [address] [id number], [place] [address] January, [facility] [place] [facility] [address] [id number] [place] [address] Nov, [facility] [place] [facility] [address] [id number], [place] [address] Oct, [facility] [place] [facility] [address] [facility] [id number], [place] [address] Oct, [facility] [place] [facility] [address] [id number] [place] [address] Oct, [facility] [address] [id number] [place] [address] Sep, [facility] [address] [id number] [place] [address] Sep, [facility] [address] [id number] [place] [address] Aug, [facility] [address] [id number] [place] [address] Aug, [facility] [address] [id number] [place] [address] Jul, [facility] [address] [id number] [place] [address] Jul, [facility] [address] [id number] [place] [address] Jul, [facility] [address] [id number] [place] [address] 8328 Jul, [facility] [address] [id number] [place] [address] Jul, [facility] [address] [id number] [place] [address]- [address]28 Jul, [facility] [address] [id number] [place] [address]- 9686 Jul, [facility] [address] [id number] [place] [address]- 278[address] Jul, [facility] [place] [facility] [address] [id number] [place] [address]- 1808 Jul, [facility] [place] [facility] [address] [id number] [place] [address] Jul, [facility] [address] [id number] [place] [address]- 7436 Jul, [facility] [place] [facility] [address] [id number] [place] [address]- 8754 Jul, [facility] [place] [facility] [address] [id number] [place] [address]- 6746 Jul, [facility] [place] [facility] [address] [id number] [place] [address]- 0962 Jul, [facility] [place] [facility] [address] [id number] [place] [address]- [address] Jun, [facility] [place] [facility] [address] [id number] [place] [address] Jun, [facility] [place] [facility] [address] [id number] [place] [address]- [address]226 Jun, [facility] [place] [facility] [address] [id number] [place] [address]- 8584 Jun, [facility] [place] [facility] [address] [id number], [place] [address]- [address] Jun, [facility] [place] [facility] [address] [id number] [place] [address]- 6080 Jun, [facility] [place] [facility] [address] [facility] [id number], [place] [address] Jun, [facility] [place] [facility] [address] [facility] [id number], [place] [address]- 98[address] Apr, [facility] [place] [facility] [address] [id number], [place] [address] Apr, [facility] [place] [facility] [address] [id number], [place] [address] Mar, [facility] [place] [facility] [address] [id number], [place] [address] Feb, [facility] [place] [facility] [address] [facility] [id number], [place] [address] Feb, [facility] [place] [facility] [address] [id number], [place] [address] 17[address] January, [facility] [address] [id number] [place] [address]- 0731 January, [facility] [place] [facility] [address] [id number] [place] [address]- 27[address] Dec, [facility] [address] [id number] [place] [address]- 0336 Dec, [facility] [place] [facility] [address] [id number] [place] [address]- [address]107 Nov, [facility] [address] [id number] [place] [address]- 4876 Oct, [facility] [place] [facility] [address] [id number] [place] [address]- 1296 Oct, [facility] [address] [id number] [place] [address]- 4797 Oct, [facility] [place] [facility] [address] [id number] [place] [address]- 3805 Sep, [facility] [address] [id number] [place] [address]- 4788 Aug, [facility] [address] [facility] [id number] [place] [address]- 5885 Aug, [facility] [address] [id number] [place] [address]- 3545 Aug, [facility] [place] [facility] [address] [id number] [place] [address]- [address]86 05 Aug, 2011 [facility] [place] [facility] [address] [id number] [place] [address]- 7418 Aug, [facility] [place] [facility] [address] [id number] [place] [address]- 6320 Jul, [facility] [place] [facility] [address] [id number] [place] [address]- 2980 Jul, [facility] [address] [facility] [id number], [place] [address] Jul, [facility] [address] [facility] [id number], [place] [address]- [address] Jul, [facility] [address] [facility] [id number], [place] [address]- 6075 Aug, [facility] [address] [facility] [id number] [place] [address]- 6961 Aug, [facility] [address] [facility] [id number] [place] [address]- 5[address] Aug, [facility] [address] [facility] [id number] [place] [address]- 7068 Jun, [facility] [id number] [place] [address]- 6535 Jun, [facility] [id number] [place] [address]- 3364 Jun, [facility] [id number], [place] [address]- 1551 Jun, [facility] [id number] [place] [address]- 9480 Jun, [facility] [id number], [place] [address] Jul, [facility] [id number], [place] [address]- 3467 Jul, [facility] [address] [id number], [place] [address] Jun, [facility] [id number], [place] [address]- 2544 Jun, IMMUNIZATIONS No Known Immunizations SOCIAL HISTORY Never Assessed REASON FOR VISIT Controlled Med Refill PLAN OF CARE VITAL SIGNS MEDICATIONS Medication Instructions Dosage Frequency Start Date End Date Duration Status Hydrocodone-Acetaminophen 7.5-325 MG Orally 3 times a day 1 tablet as needed for pain 8h Apr, 28 days Active RESULTS No Results PROCEDURES [...]
--- OUTSIDE RECORDS SUMMARY | 2018-12-19 18:59 | XMS REPORT | Continuity of Care Document ---
Author Author Replaced By [facility] Address Unknown Phone Unavailable Allergies Active Description Code Type Severity Reaction Onset Reported/Identified Relationship to Patient Clinical Status Yes Penicillins [id number] Drug Allergy Unknown N/A 07/11/2007 Yes Penicillins Drug Allergy N/A N/A 02/19/2010 Yes Penicillins Drug Allergy 02/19/2010 Yes Cardura XL 4 mg Tablet Extended Rel 24 hr Drug Allergy N/A N/A 2011 Yes Cardura XL 4 mg Tablet Extended Rel 24 hr Drug Allergy 04/20/2012 Medications There is no data. Problems Date Dx Coded Attending Type Code [...] Pain In Joint Involving Lower Leg 08/21/2008 ARNAV BLACK APRNNDA S 569.3 Bleeding Rectal 08/21/2008 ARNAV BLACK [...] In Joint Involving Upper Arm 08/21/2008 SOFIA COMPUTER TRAINING SPECIALIST LASHAY S 719.46 Pain In Joint Involving Lower Leg 08/21/2008 SOFIA COMPUTER TRAINING SPECIALIST LASHAY S 569.3 Bleeding Rectal 08/21/2008 SOFIA COMPUTER TRAINING SPECIALIST, LASHAY S 719.42 Pain In Joint Involving Upper Arm 08/21/2008 SOFIA COMPUTER TRAINING SPECIALIST LASHAY S 719.46 Pain In Joint Involving Lower Leg 08/21/2008 SOFIA COMPUTER TRAINING SPECIALIST LASHAY S 569.3 Bleeding Rectal 08/21/2008 SOFIA COMPUTER TRAINING SPECIALIST LASHAY S 719.42 Pain In Joint Involving Upper Arm 08/21/2008 SOFIA COMPUTER TRAINING SPECIALIST LASHAY S 719.46 Pain In Joint Involving Lower Leg 08/21/2008 SOFIA COMPUTER TRAINING SPECIALIST LASHAY S 569.3 Bleeding Rectal 08/21/2008 SOFIA COMPUTER TRAINING SPECIALIST LASHAY S 719.42 Pain In Joint Involving Upper Arm 08/21/2008 SOFIA CHILDS LASHAY S 719.46 Pain In Joint Involving Lower Leg 08/21/2008 HALEY DPM, KRYSTLE 569.3 Bleeding Rectal 08/21/2008 HALEY DPM, KRYSTLE 719.42 Pain In Joint Involving Upper Arm 08/21/2008 HALEY DPM, KRYSTLE 719.46 Pain In Joint Involving Lower Leg 08/21/2008 MADL COMPUTER TRAINING SPECIALIST, RAJIV L 569.3 Bleeding Rectal 08/21/2008 MADL COMPUTER TRAINING SPECIALIST, RAJIV L 719.42 Pain In Joint Involving Upper Arm 08/21/2008 MADL COMPUTER TRAINING SPECIALIST, RAJIV L 719.46 Pain In Joint Involving Lower Leg 08/21/2008 SOFIA COMPUTER TRAINING SPECIALIST LASHAY S 569.3 Bleeding Rectal 08/21/2008 SOFIA COMPUTER TRAINING SPECIALIST LASHAY S 719.42 Pain In Joint Involving Upper Arm 08/21/2008 SOFIA COMPUTER TRAINING SPECIALIST, LASHAY S 719.46 Pain In Joint Involving Lower Leg 09/23/2008 LOPEZ DO, PARADISE K 272.0 HYPERCHOLESTEROLEMIA PURE 09/23/2008 LOPEZ DO, PARADISE K 401.1 HYPERTENSION, BENIGN ESSENTIAL 09/23/2008 LOPEZ DO, PARADISE K 272.0 HYPERCHOLESTEROLEMIA PURE 09/23/2008 LOPEZ DO, PARADISE K 401.1 HYPERTENSION, BENIGN ESSENTIAL 09/23/2008 SOFIA COMPUTER TRAINING SPECIALIST, LASHAY S 272.0 HYPERCHOLESTEROLEMIA PURE 09/23/2008 SOFIA COMPUTER TRAINING SPECIALIST, LASHAY S 401.1 HYPERTENSION, BENIGN ESSENTIAL 09/23/2008 [...] K 401.1 HYPERTENSION, BENIGN ESSENTIAL 09/23/2008 SOFIA COMPUTER TRAINING SPECIALIST, LASHAY S 272.0 HYPERCHOLESTEROLEMIA PURE 09/23/2008 SOFIA COMPUTER TRAINING SPECIALIST, LASHAY S 401.1 HYPERTENSION, BENIGN ESSENTIAL 09/23/2008 SOFIA COMPUTER TRAINING SPECIALIST, LASHAY S 272.0 HYPERCHOLESTEROLEMIA PURE 09/23/2008 SOFIA COMPUTER TRAINING SPECIALIST, LASHAY S 401.1 HYPERTENSION, BENIGN ESSENTIAL 09/23/2008 ESVIN LINDA MD 272.0 HYPERCHOLESTEROLEMIA PURE 09/23/2008 ESVIN LINDA MD 401.1 HYPERTENSION, BENIGN ESSENTIAL 09/23/2008 SOFIA COMPUTER TRAINING SPECIALIST, LASHAY S 272.0 HYPERCHOLESTEROLEMIA PURE 09/23/2008 SOFIA COMPUTER TRAINING SPECIALIST, LASHAY S 401.1 HYPERTENSION, BENIGN ESSENTIAL 09/23/2008 SOFIA COMPUTER TRAINING SPECIALIST, LASHAY S 272.0 HYPERCHOLESTEROLEMIA PURE 09/23/2008 SOFIA COMPUTER TRAINING SPECIALIST, LASHAY S 401.1 HYPERTENSION, BENIGN ESSENTIAL 09/23/2008 SOFIA COMPUTER TRAINING SPECIALIST, LASHAY S 272.0 HYPERCHOLESTEROLEMIA PURE 09/23/2008 SOFIA COMPUTER TRAINING SPECIALIST, LASHAY S 401.1 HYPERTENSION, BENIGN ESSENTIAL 09/23/2008 SOFIA COMPUTER TRAINING SPECIALIST, LASHAY S 272.0 HYPERCHOLESTEROLEMIA PURE 09/23/2008 SOFIA COMPUTER TRAINING SPECIALIST, LASHAY S 401.1 HYPERTENSION, BENIGN ESSENTIAL 09/23/2008 SOFIA COMPUTER TRAINING SPECIALIST, LASHAY S 272.0 HYPERCHOLESTEROLEMIA PURE 09/23/2008 SOFIA COMPUTER TRAINING SPECIALIST, LASHAY S 401.1 HYPERTENSION, BENIGN ESSENTIAL 09/23/2008 SOFIA COMPUTER TRAINING SPECIALIST, LASHAY S 272.0 HYPERCHOLESTEROLEMIA PURE 09/23/2008 SOFIA COMPUTER TRAINING SPECIALIST, LASHAY S 401.1 HYPERTENSION, BENIGN ESSENTIAL 09/23/2008 HALEY DPM, KRYSTLE 272.0 HYPERCHOLESTEROLEMIA PURE 09/23/2008 HALEY DPM, KRYSTLE 401.1 HYPERTENSION, BENIGN ESSENTIAL 09/23/2008 MADL COMPUTER TRAINING SPECIALIST, RAJIV L 272.0 HYPERCHOLESTEROLEMIA PURE 09/23/2008 MADL COMPUTER TRAINING SPECIALIST, RAJIV L 401.1 HYPERTENSION, BENIGN ESSENTIAL 09/23/2008 SOFIA COMPUTER TRAINING SPECIALIST, LASHAY S 272.0 HYPERCHOLESTEROLEMIA PURE 09/23/2008 SOFIA COMPUTER TRAINING SPECIALIST, LASHAY S 401.1 HYPERTENSION, BENIGN ESSENTIAL 10/03/2008 [...] Ankle And Foot 10/03/2008 PARADISE LOPEZ DO 719.47 Pain In Joint Involving Ankle And [...] In Joint Involving Ankle And Foot 10/03/2008 BOB BLACK APRNA S 719.47 Pain In Joint Involving Ankle And Foot 10/03/2008 LASHAY BLACK APRN S 719.47 Pain In Joint Involving Ankle And Foot 10/03/2008 SOFIA COMPUTER TRAINING SPECIALIST, LASHAY S 719.47 Pain In Joint Involving Ankle And Foot 10/03/2008 SOFIA COMPUTER TRAINING SPECIALIST, LASHAY S 719.47 Pain In Joint Involving Ankle And Foot 10/03/2008 HALEY DPKRYSTLE Gutierrez 719.47 Pain In Joint Involving Ankle And Foot 10/03/2008 MADL COMPUTER TRAINING SPECIALIST, RAJIV L 719.47 Pain In Joint Involving Ankle And Foot 10/03/2008 SOFIA COMPUTER TRAINING SPECIALIST, LASHAY S 719.47 Pain In Joint Involving Ankle And Foot 10/25/2008 LOPEZ DO, PARADISE K 726.79 Other Enthesopathy Of Ankle And Tarsus 10/25/2008 LOPEZ DO, PARADISE K 726.79 Other Enthesopathy Of Ankle And Tarsus 10/25/2008 SOFIA COMPUTER TRAINING SPECIALIST, LASHAY S 726.79 Other Enthesopathy Of Ankle And Tarsus 10/25/2008 726.79 Other Enthesopathy Of Ankle And Tarsus 10/25/2008 LOPEZ DO, PARADISE K 726.79 Other Enthesopathy Of Ankle And Tarsus 10/25/2008 LOPEZ DO, PARADISE K 726.79 Other Enthesopathy Of Ankle And Tarsus 10/25/2008 LOPEZ DO, PARADISE K 726.79 Other Enthesopathy Of Ankle And Tarsus 10/25/2008 SOFIA COMPUTER TRAINING SPECIALIST, LASHAY S 726.79 Other Enthesopathy Of Ankle And Tarsus 10/25/2008 SOFIA COMPUTER TRAINING SPECIALIST, LASHAY S 726.79 Other Enthesopathy Of Ankle And Tarsus 10/25/2008 ESVIN LINDA MD 726.79 Other Enthesopathy Of Ankle And Tarsus 10/25/2008 SOFIA COMPUTER TRAINING SPECIALIST, LASHAY S 726.79 Other Enthesopathy Of Ankle And Tarsus 10/25/2008 SOFIA COMPUTER TRAINING SPECIALIST, LASHAY S 726.79 Other Enthesopathy Of Ankle And Tarsus 10/25/2008 SOFIA COMPUTER TRAINING SPECIALIST, LASHAY S 726.79 Other Enthesopathy Of Ankle And Tarsus 10/25/2008 SOFIA COMPUTER TRAINING SPECIALIST, LASHAY S 726.79 Other Enthesopathy Of Ankle And Tarsus 10/25/2008 SOFIA COMPUTER TRAINING SPECIALIST, LASHAY S 726.79 Other Enthesopathy Of Ankle And Tarsus 10/25/2008 SOFIA COMPUTER TRAINING SPECIALIST, LASHAY S 726.79 Other Enthesopathy Of Ankle And Tarsus 10/25/2008 HALEY DPM, KRYSTLE 726.79 Other Enthesopathy Of Ankle And Tarsus 10/25/2008 MADL COMPUTER TRAINING SPECIALIST, RAJIV L 726.79 Other Enthesopathy Of Ankle And Tarsus 10/25/2008 SOFIA COMPUTER TRAINING SPECIALIST, LASHAY S 726.79 Other Enthesopathy Of Ankle And Tarsus 05/14/2009 LOPEZ DO, PARADISE K 789.00 Abdominal Pain Of Childhood 05/14/2009 LOPEZ DO, PARADISE K 789.00 Abdominal Pain Of Childhood 05/14/2009 SOFIA COMPUTER TRAINING SPECIALIST, LASHAY S 789.00 Abdominal Pain Of Childhood 05/14/2009 789.00 Abdominal Pain Of Childhood 05/14/2009 LOPEZ DO, PARADISE K 789.00 Abdominal Pain Of Childhood 05/14/2009 LOPEZ DO, PARADISE K 789.00 Abdominal Pain Of Childhood 05/14/2009 LOPEZ DO, PARADISE K 789.00 Abdominal Pain Of Childhood 05/14/2009 SOFIA COMPUTER TRAINING SPECIALIST, LASHAY S 789.00 Abdominal Pain Of Childhood 05/14/2009 SOFIA COMPUTER TRAINING SPECIALIST, LASHAY S 789.00 Abdominal Pain Of Childhood 05/14/2009 ESVIN LINDA MD 789.00 Abdominal Pain Of Childhood 05/14/2009 SOFIA COMPUTER TRAINING SPECIALIST, LASHAY S 789.00 Abdominal Pain Of Childhood 05/14/2009 SOFIA COMPUTER TRAINING SPECIALIST, ALSHAY S 789.00 Abdominal Pain Of Childhood 05/14/2009 SOFIA COMPUTER TRAINING SPECIALIST, LASHAY S 789.00 Abdominal Pain Of Childhood 05/14/2009 SOFIA COMPUTER TRAINING SPECIALIST, LASHAY S 789.00 Abdominal Pain Of Childhood 05/14/2009 SOFIA COMPUTER TRAINING SPECIALIST, LASHAY S 789.00 Abdominal Pain Of Childhood 05/14/2009 SOFIA COMPUTER TRAINING SPECIALIST, LASHAY S 789.00 Abdominal Pain Of Childhood 05/14/2009 HALEY DPM, KRYSTLE 789.00 Abdominal Pain Of Childhood 05/14/2009 MADL COMPUTER TRAINING SPECIALIST, RAJIV L 789.00 Abdominal Pain Of Childhood 05/14/2009 SOFIA CHILDS LASHAY S 789.00 Abdominal Pain Of Childhood 05/21/2009 LOPEZ DO, PARADISE K 601.0 Prostatitis Acute Bacterial 05/21/2009 LOPEZ DO, PARADISE K 601.0 Prostatitis Acute Bacterial 05/21/2009 SOFIA OLMOSN, LASHAY S 601.0 Prostatitis Acute Bacterial 05/21/2009 601.0 Prostatitis Acute Bacterial 05/21/2009 LOPEZ DO, PARADISE K 601.0 Prostatitis Acute Bacterial 05/21/2009 LOPEZ DO, PARADISE K 601.0 Prostatitis Acute Bacterial 05/21/2009 LOPEZ DO, PARADISE K 601.0 Prostatitis Acute Bacterial 05/21/2009 SOFIA CHILDS, LASHAY S 601.0 Prostatitis Acute Bacterial 05/21/2009 SOFIA COMPUTER TRAINING SPECIALIST, LASHAY S 601.0 Prostatitis Acute Bacterial 05/21/2009 ESVIN LINDA MD 601.0 Prostatitis Acute Bacterial 05/21/2009 SOFIA COMPUTER TRAINING SPECIALIST, LASHAY S 601.0 Prostatitis Acute Bacterial 05/21/2009 SOFIA COMPUTER TRAINING SPECIALIST, LASHAY S 601.0 Prostatitis Acute Bacterial 05/21/2009 SOFIA COMPUTER TRAINING SPECIALIST, LASHAY S 601.0 Prostatitis Acute Bacterial 05/21/2009 SOFIA COMPUTER TRAINING SPECIALIST, LASHAY S 601.0 Prostatitis Acute Bacterial 05/21/2009 SOFIA COMPUTER TRAINING SPECIALIST, LASHAY S 601.0 Prostatitis Acute Bacterial 05/21/2009 SOFIA COMPUTER TRAINING SPECIALIST, LASHAY S 601.0 Prostatitis Acute Bacterial 05/21/2009 HALEY DPM, KRYSTLE 601.0 Prostatitis Acute Bacterial 05/21/2009 MADL COMPUTER TRAINING SPECIALIST, RAJIV L 601.0 Prostatitis Acute Bacterial 05/21/2009 SOFIA COMPUTER TRAINING SPECIALIST, LASHAY S 601.0 Prostatitis Acute Bacterial 02/19/2010 LOPEZ DO, PARADISE K 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 02/19/2010 LOPEZ DO, PARADISE K 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 02/19/2010 SOFIA CHILDS, LASHAY S 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 02/19/2010 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 02/19/2010 LOPEZ DO, PARADISE K 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 02/19/2010 LOPEZ DO, PARADISE K 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 02/19/2010 LOPEZ DO, PARADISE K 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 02/19/2010 SOFIA COMPUTER TRAINING SPECIALIST, LASHAY S 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 02/19/2010 SOFIA COMPUTER TRAINING SPECIALIST, LASHAY S 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 02/19/2010 ESVIN LINDA MD 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 02/19/2010 SOFIA COMPUTER TRAINING SPECIALIST, LASHAY S 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 02/19/2010 SOFIA COMPUTER TRAINING SPECIALIST, LASHAY S 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 02/19/2010 SOFIA COMPUTER TRAINING SPECIALIST, LASHAY S 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 02/19/2010 SOFIA COMPUTER TRAINING SPECIALIST, LASHAY S 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 02/19/2010 SOFIA COMPUTER TRAINING SPECIALIST, LASHAY S 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 02/19/2010 SOFIA COMPUTER TRAINING SPECIALIST, LASHAY S 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 02/19/2010 HALEY DPM, KRYSTLE 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 02/19/2010 MADL COMPUTER TRAINING SPECIALIST, RAJIV L 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 02/19/2010 SOFIA COMPUTER TRAINING SPECIALIST, LASHAY S 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 06/22/2010 LOPEZ DO, PARADISE K 788.1 Dysuria 06/22/2010 LOPEZ DO, PARADISE K 788.1 Dysuria 06/22/2010 SOFIA COMPUTER TRAINING SPECIALIST, LASHAY S 788.1 Dysuria 06/22/2010 788.1 Dysuria 06/22/2010 LOPEZ DO, PARADISE K 788.1 Dysuria 06/22/2010 LOPEZ DO, PARDAISE K 788.1 Dysuria 06/22/2010 LOPEZ DO, PARADISE K 788.1 Dysuria 06/22/2010 SOFIA COMPUTER TRAINING SPECIALIST, LASHAY S 788.1 Dysuria 06/22/2010 SOFIA COMPUTER TRAINING SPECIALIST, LASHAY S 788.1 Dysuria 06/22/2010 ESVIN LINDA MD 788.1 Dysuria 06/22/2010 SOFIA COMPUTER TRAINING SPECIALIST, LASHAY S 788.1 Dysuria 06/22/2010 SOFIA COMPUTER TRAINING SPECIALIST, LASHAY S 788.1 Dysuria 06/22/2010 SOFIA COMPUTER TRAINING SPECIALIST, LASHAY S 788.1 Dysuria 06/22/2010 SOFIA COMPUTER TRAINING SPECIALIST, LASHAY S 788.1 Dysuria 06/22/2010 SOFIA COMPUTER TRAINING SPECIALIST, LASHAY S 788.1 Dysuria 06/22/2010 SOFIA COMPUTER TRAINING SPECIALIST, LASHAY S 788.1 Dysuria 06/22/2010 HALEY DPM, KRYSTLE 788.1 Dysuria 06/22/2010 MADL COMPUTER TRAINING SPECIALIST, RAJIV L 788.1 Dysuria 06/22/2010 SOFIA COMPUTER TRAINING SPECIALIST, LASHAY S 788.1 Dysuria 06/29/2010 LOPEZ DO PARADISE K 465.9 Acute Upper Respiratory Infections Of Unspecified Site 06/29/2010 JOHN DO PARADISE K V70.0 GENERAL MEDICAL EXAM, ROUTINE, AT HEALTH CARE FACILITY 06/29/2010 LOPEZ DO PARADISE K 465.9 Acute Upper Respiratory Infections Of Unspecified Site 06/29/2010 JOHN PENNINGTON PARADISE K V70.0 GENERAL MEDICAL EXAM, ROUTINE, AT HEALTH CARE FACILITY 06/29/2010 SOFIA OLMOSN, LASHAY S 465.9 Acute Upper Respiratory Infections Of Unspecified Site 06/29/2010 ARNAV BLACK APRNNDA S V70.0 GENERAL MEDICAL EXAM, ROUTINE, AT [...] EXAM, ROUTINE, AT HEALTH CARE FACILITY 06/29/2010 ARNAV BLACK APRNNDA S 465.9 Acute Upper Respiratory Infections Of Unspecified Site 06/29/2010 SOFIA COMPUTER TRAINING SPECIALIST, LASHAY S V70.0 GENERAL MEDICAL EXAM, ROUTINE, AT HEALTH CARE FACILITY 06/29/2010 SOFIA COMPUTER TRAINING SPECIALIST, LASHAY S 465.9 Acute Upper Respiratory Infections Of Unspecified Site 06/29/2010 SOFIA COMPUTER TRAINING SPECIALIST, LASHAY S V70.0 GENERAL MEDICAL EXAM, ROUTINE, AT HEALTH CARE FACILITY 06/29/2010 ESVIN LINDA MD 465.9 Acute Upper Respiratory Infections Of Unspecified Site 06/29/2010 ESVIN LINDA MD V70.0 GENERAL MEDICAL EXAM, ROUTINE, AT HEALTH CARE FACILITY 06/29/2010 SOFIA COMPUTER TRAINING SPECIALIST, LASHAY S 465.9 Acute Upper Respiratory Infections Of Unspecified Site 06/29/2010 SOFIA COMPUTER TRAINING SPECIALIST, LASHAY S V70.0 GENERAL MEDICAL EXAM, ROUTINE, AT HEALTH CARE FACILITY 06/29/2010 SOFIA COMPUTER TRAINING SPECIALIST, LASHAY S 465.9 Acute Upper Respiratory Infections Of Unspecified Site 06/29/2010 SOFIA COMPUTER TRAINING SPECIALIST, LASHAY S V70.0 GENERAL MEDICAL EXAM, ROUTINE, AT HEALTH CARE FACILITY 06/29/2010 SOFIA COMPUTER TRAINING SPECIALIST, LASHAY S 465.9 Acute Upper Respiratory Infections Of Unspecified Site 06/29/2010 SOFIA COMPUTER TRAINING SPECIALIST, LASHAY S V70.0 GENERAL MEDICAL EXAM, ROUTINE, AT HEALTH CARE FACILITY 06/29/2010 SOFIA COMPUTER TRAINING SPECIALIST, LASHAY S 465.9 Acute Upper Respiratory Infections Of Unspecified Site 06/29/2010 SOFIA COMPUTER TRAINING SPECIALIST, LASHAY S V70.0 GENERAL MEDICAL EXAM, ROUTINE, AT HEALTH CARE FACILITY 06/29/2010 SOFIA COMPUTER TRAINING SPECIALIST, LASHAY S 465.9 Acute Upper Respiratory Infections Of Unspecified Site 06/29/2010 SOFIA COMPUTER TRAINING SPECIALIST, LASHAY S V70.0 GENERAL MEDICAL EXAM, ROUTINE, AT HEALTH CARE FACILITY 06/29/2010 SOFIA COMPUTER TRAINING SPECIALIST, LASHAY S 465.9 Acute Upper Respiratory Infections Of Unspecified Site 06/29/2010 SOFIA COMPUTER TRAINING SPECIALIST, LASHAY S V70.0 GENERAL MEDICAL EXAM, ROUTINE, AT HEALTH CARE FACILITY 06/29/2010 HALEY DPM, KRYSTLE 465.9 Acute Upper Respiratory Infections Of Unspecified Site 06/29/2010 HALEY DPM, KRYSTLE V70.0 GENERAL MEDICAL EXAM, ROUTINE, AT HEALTH CARE FACILITY 06/29/2010 MADL COMPUTER TRAINING SPECIALIST, RAJIV L 465.9 Acute Upper Respiratory Infections Of Unspecified Site 06/29/2010 MADL COMPUTER TRAINING SPECIALIST, RAJIV L V70.0 GENERAL MEDICAL EXAM, ROUTINE, AT HEALTH CARE FACILITY 06/29/2010 SOFIA COMPUTER TRAINING SPECIALIST, LASHAY S 465.9 Acute Upper Respiratory Infections Of Unspecified Site 06/29/2010 SOFIA COMPUTER TRAINING SPECIALIST, LASHAY S V70.0 GENERAL MEDICAL EXAM, ROUTINE, AT HEALTH CARE FACILITY 07/06/2010 LOPEZ DO, PARADISE K 702.0 Actinic Keratosis 07/06/2010 LOPEZ DO, PARADISE K 702.0 Actinic Keratosis 07/06/2010 SOFIA COMPUTER TRAINING SPECIALIST, LASHAY S 702.0 Actinic Keratosis 07/06/2010 702.0 Actinic Keratosis 07/06/2010 LOPEZ DO, PARADISE K 702.0 Actinic Keratosis 07/06/2010 LOPEZ DO, PARADISE K 702.0 Actinic Keratosis 07/06/2010 LOPEZ DO, PARADISE K 702.0 Actinic Keratosis 07/06/2010 SOFIA COMPUTER TRAINING SPECIALIST, LASHAY S 702.0 Actinic Keratosis 07/06/2010 SOFIA COMPUTER TRAINING SPECIALIST, LASHAY S 702.0 Actinic Keratosis 07/06/2010 ESVIN LINDA MD 702.0 Actinic Keratosis 07/06/2010 SOFIA COMPUTER TRAINING SPECIALIST, LASHAY S 702.0 Actinic Keratosis 07/06/2010 SOFIA COMPUTER TRAINING SPECIALIST, LASHAY S 702.0 Actinic Keratosis 07/06/2010 SOFIA COMPUTER TRAINING SPECIALIST, LASHAY S 702.0 Actinic Keratosis 07/06/2010 SOFIA COMPUTER TRAINING SPECIALIST, LASHAY S 702.0 Actinic Keratosis 07/06/2010 SOFIA COMPUTER TRAINING SPECIALIST, LASHAY S 702.0 Actinic Keratosis 07/06/2010 SOFIA COMPUTER TRAINING SPECIALIST, LASHAY S 702.0 Actinic Keratosis 07/06/2010 HALEY WELCH, KRYSTLE 702.0 Actinic Keratosis 07/06/2010 FIORDALIZA COMPUTER TRAINING SPECIALIST, RAJIV L 702.0 Actinic Keratosis 07/06/2010 SOFIA CHILDS LASHAY S 702.0 Actinic Keratosis 09/29/2010 Ot 530.81 ESOPHAGEAL REFLUX 09/29/2010 Ot 553.3 DIAPHRAGMATIC HERNIA 09/29/2010 Ot 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 09/29/2010 Ot 709.9 SKIN DISORDER NOS 09/29/2010 Ot V76.51 SCREEN MAL NEOP-COLON 06/15/2011 PARADISE LOPEZ DO K 729.1 Myalgia And Myositis Unspecified 06/15/2011 DANIELA LOPEZ DOA K 729.1 Myalgia And Myositis Unspecified 06/15/2011 SOFIA CHILDS LASHAY S 729.1 Myalgia And Myositis Unspecified 06/15/2011 729.1 Myalgia And Myositis Unspecified 06/15/2011 DANIELA LOPEZ DOA K 729.1 Myalgia And Myositis Unspecified 06/15/2011 DANIELA LOPEZ DOA K 729.1 Myalgia And Myositis Unspecified 06/15/2011 DANIELA LOPEZ DOA K 729.1 Myalgia And Myositis Unspecified 06/15/2011 SOFIA COMPUTER TRAINING SPECIALIST, LASHAY S 729.1 Myalgia And Myositis Unspecified 06/15/2011 SOFIA COMPUTER TRAINING SPECIALIST, LASHAY S 729.1 Myalgia And Myositis Unspecified 06/15/2011 ALEXEI WELLER, ESVIN 729.1 Myalgia And Myositis Unspecified 06/15/2011 SOFIA COMPUTER TRAINING SPECIALIST, LASHAY S 729.1 Myalgia And Myositis Unspecified 06/15/2011 SOFIA COMPUTER TRAINING SPECIALIST, LASHAY S 729.1 Myalgia And Myositis Unspecified 06/15/2011 SOFIA COMPUTER TRAINING SPECIALIST, LASHAY S 729.1 Myalgia And Myositis Unspecified 06/15/2011 SOFIA COMPUTER TRAINING SPECIALIST, LASHAY S 729.1 Myalgia And Myositis Unspecified 06/15/2011 SOFIA COMPUTER TRAINING SPECIALIST, LASHAY S 729.1 Myalgia And Myositis Unspecified 06/15/2011 SOFIA COMPUTER TRAINING SPECIALIST, LASHAY S 729.1 Myalgia And Myositis Unspecified 06/15/2011 HALEY DPM, KRYSTLE 729.1 Myalgia And Myositis Unspecified 06/15/2011 MADL COMPUTER TRAINING SPECIALISTRAJIV 729.1 Myalgia And Myositis Unspecified 06/15/2011 SOFIA COMPUTER TRAINING SPECIALIST, LASHAY S 729.1 Myalgia And Myositis Unspecified 07/27/2011 LOPEZ DO, PARADISE K 461.9 Sinusitis Acute 07/27/2011 LOPEZ DO, PARADISE K 466.0 Bronchitis, Acute 07/27/2011 LOPEZ DO, PARADISE K 461.9 Sinusitis Acute 07/27/2011 LOPEZ DO, PARADISE K 466.0 Bronchitis, Acute 07/27/2011 SOFIA COMPUTER TRAINING SPECIALIST, LASHAY S 461.9 Sinusitis Acute 07/27/2011 SOFIA COMPUTER TRAINING SPECIALIST, LASHAY S 466.0 Bronchitis, Acute 07/27/2011 461.9 Sinusitis Acute 07/27/2011 466.0 Bronchitis, Acute 07/27/2011 LOPEZ DO, PARADISE K 461.9 Sinusitis Acute 07/27/2011 LOPEZ DO, PARADISE K 466.0 Bronchitis, Acute 07/27/2011 LOPEZ DO, PARADISE K 461.9 Sinusitis Acute 07/27/2011 LOPEZ DO, PARADISE K 466.0 Bronchitis, Acute 07/27/2011 LOPEZ DO, PARADISE K 461.9 Sinusitis Acute 07/27/2011 LOPEZ DO, PARADISE K 466.0 Bronchitis, Acute 07/27/2011 SOFIA COMPUTER TRAINING SPECIALIST, LASHAY S 461.9 Sinusitis Acute 07/27/2011 SOFIA COMPUTER TRAINING SPECIALIST, LASHAY S 466.0 Bronchitis, Acute 07/27/2011 SOFIA COMPUTER TRAINING SPECIALIST, LASHAY S 461.9 Sinusitis Acute 07/27/2011 SOFIA COMPUTER TRAINING SPECIALIST, LASHAY S 466.0 Bronchitis, Acute 07/27/2011 ESVIN LINDA MD 461.9 Sinusitis Acute 07/27/2011 ESVIN LINDA MD 466.0 Bronchitis, Acute 07/27/2011 SOFIA COMPUTER TRAINING SPECIALIST, LASHAY S 461.9 Sinusitis Acute 07/27/2011 SOFIA COMPUTER TRAINING SPECIALIST, LASHAY S 466.0 Bronchitis, Acute 07/27/2011 SOFIA COMPUTER TRAINING SPECIALIST, LASHAY S 461.9 Sinusitis Acute 07/27/2011 SOFIA COMPUTER TRAINING SPECIALIST, LASHAY S 466.0 Bronchitis, Acute 07/27/2011 SOFIA COMPUTER TRAINING SPECIALIST, LASHAY S 461.9 Sinusitis Acute 07/27/2011 SOFIA COMPUTER TRAINING SPECIALIST, LASHAY S 466.0 Bronchitis, Acute 07/27/2011 SOFIA COMPUTER TRAINING SPECIALIST, LASHAY S 461.9 Sinusitis Acute 07/27/2011 SOFIA COMPUTER TRAINING SPECIALIST, LASHAY S 466.0 Bronchitis, Acute 07/27/2011 SOFIA COMPUTER TRAINING SPECIALIST, LASHAY S 461.9 Sinusitis Acute 07/27/2011 SOFIA COMPUTER TRAINING SPECIALIST, LASHAY S 466.0 Bronchitis, Acute 07/27/2011 SOFIA COMPUTER TRAINING SPECIALIST, LASHAY S 461.9 Sinusitis Acute 07/27/2011 SOFIA COMPUTER TRAINING SPECIALIST, LASHAY S 466.0 Bronchitis, Acute 07/27/2011 HALEY DPM, KRYSTLE 461.9 Sinusitis Acute 07/27/2011 HALEY DPM, KRYSTLE 466.0 Bronchitis, Acute 07/27/2011 MADL COMPUTER TRAINING SPECIALIST, RAJIV L 461.9 Sinusitis Acute 07/27/2011 MADL COMPUTER TRAINING SPECIALIST, RAJIV L 466.0 Bronchitis, Acute 07/27/2011 SOFIA COMPUTER TRAINING SPECIALIST, LASHAY S 461.9 Sinusitis Acute 07/27/2011 SOFIA COMPUTER TRAINING SPECIALIST, LASHAY S 466.0 Bronchitis, Acute 08/20/2011 LOPEZ [...] LOWER URINARY TRACT SYMPTOMS (LUTS) 08/20/2011 SOFIA COMPUTER TRAINING SPECIALIST, LASHAY S 455.6 UNSPECIFIED HEMORRHOIDS WITHOUT COMPLICATION 08/20/2011 SOFIA COMPUTER TRAINING SPECIALIST, LASHAY S 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 AND OTHER LOWER URINARY TRACT SYMPTOMS (LUTS) 08/20/2011 455.6 UNSPECIFIED HEMORRHOIDS WITHOUT COMPLICATION 08/20/2011 600.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 ( BENIGN) OF 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 AND OTHER [...] LOWER URINARY TRACT SYMPTOMS (LUTS) 08/20/2011 SOFIA COMPUTER TRAINING SPECIALIST, LASHAY S 455.6 UNSPECIFIED HEMORRHOIDS WITHOUT COMPLICATION 08/20/2011 [employer] TRAINING SPECIALIST, LASHAY S 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 AND OTHER LOWER URINARY TRACT SYMPTOMS (LUTS) 08/20/2011 [employer] COM[employer] TRAINING SPECIALIST, LASHAY S 455.6 UNSPECIFIED HEMORRHOIDS WITHOUT COMPLICATION 08/20/2011 [employer] COMPUT[employer] TRAINING SPECIALIST, LASHAY S 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 AND OTHER LOWER URINARY TRACT SYMPTOMS (LUTS) 08/20/2011 ESVIN LINDA MD 455.6 UNSPECIFIED HEMORRHOIDS WITHOUT COMPLICATION 08/20/2011 ESVIN LINDA MD 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 AND OTHER LOWER URINARY TRACT SYMPTOMS (LUTS) 08/20/2011 [employer] TRAINING SPECIALIST, LASHAY S 455.6 UNSPECIFIED HEMORRHOIDS WITHOUT COMPLICATION 08/20/2011 [employer] COMPUT[employer] TRAINING SPECIALIST, LASHAY S 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 AND OTHER LOWER URINARY TRACT SYMPTOMS (LUTS) 08/20/2011 [employer] COMPUT[employer] TRAINING SPECIALIST, LASHAY S 455.6 UNSPECIFIED HEMORRHOIDS WITHOUT COMPLICATION 08/20/2011 [employer] COMPUT[employer] TRAINING SPECIALIST, LASHAY S 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 AND OTHER LOWER URINARY TRACT SYMPTOMS (LUTS) 08/20/2011 [employer] COMPUT[employer] TRAINING SPECIALIST, LASHAY S 455.6 UNSPECIFIED HEMORRHOIDS WITHOUT COMPLICATION 08/20/2011 [employer] COMPUT[employer] TRAINING SPECIALIST, LASHAY S 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 AND OTHER LOWER URINARY TRACT SYMPTOMS (LUTS) 08/20/2011 [employer] COM[employer] TRAINING SPECIALIST, LASHAY S 455.6 UNSPECIFIED HEMORRHOIDS WITHOUT COMPLICATION 08/20/2011 [employer] COMPUT[employer] TRAINING SPECIALIST, LASHAY S 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 AND OTHER LOWER URINARY TRACT SYMPTOMS (LUTS) 08/20/2011 SOFIA COMPUTER TRAINING SPECIALIST, LASHAY S 455.6 UNSPECIFIED HEMORRHOIDS WITHOUT COMPLICATION 08/20/2011 SOFIA COMPUTER TRAINING SPECIALIST, LASHAY S 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 AND OTHER LOWER URINARY TRACT SYMPTOMS (LUTS) 08/20/2011 SOFIA COMPUTER TRAINING SPECIALIST, LASHAY S 455.6 UNSPECIFIED HEMORRHOIDS WITHOUT COMPLICATION 08/20/2011 SOFIA COMPUTER TRAINING SPECIALIST, LASHAY S 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 AND OTHER LOWER URINARY TRACT SYMPTOMS (LUTS) 08/20/2011 HALEY DPM, KRYSTLE 455.6 UNSPECIFIED HEMORRHOIDS WITHOUT COMPLICATION 08/20/2011 HALEY DPM, KRYSTLE 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 AND OTHER LOWER URINARY TRACT SYMPTOMS (LUTS) 08/20/2011 MADL COMPUTER TRAINING SPECIALIST, RAJIV L 455.6 UNSPECIFIED HEMORRHOIDS WITHOUT COMPLICATION 08/20/2011 MADL COMPUTER TRAINING SPECIALIST, RAJIV L 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 AND OTHER LOWER URINARY TRACT SYMPTOMS (LUTS) 08/20/2011 SOFIA COMPUTER TRAINING SPECIALIST, LASHAY S 455.6 UNSPECIFIED HEMORRHOIDS WITHOUT COMPLICATION 08/20/2011 SOFIA COMPUTER TRAINING SPECIALIST, LASHAY S 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 AND OTHER LOWER URINARY TRACT SYMPTOMS (LUTS) 10/28/2011 LOPEZ DANIELA PENNINGTONA K 558.9 OTHER AND UNSPECIFIED NONINFECTIOUS GASTROENTERITIS AND COLITIS 10/28/2011 LOPEZ DO PARADISE K 564.00 CONSTIPATION 10/28/2011 LOPEZ DO PARADISE K 558.9 OTHER AND UNSPECIFIED NONINFECTIOUS GASTROENTERITIS AND COLITIS 10/28/2011 LOPEZ DO PARADISE K 564.00 CONSTIPATION 10/28/2011 SOFIA COMPUTER TRAINING SPECIALIST, LASHAY S 558.9 OTHER AND UNSPECIFIED NONINFECTIOUS GASTROENTERITIS AND COLITIS 10/28/2011 SOFIA COMPUTER TRAINING SPECIALIST, LASHAY S 564.00 CONSTIPATION 10/28/2011 558.9 OTHER [...] LOPEZ DO, PARADISE K 564.00 CONSTIPATION 10/28/2011 SOFIA COMPUTER TRAINING SPECIALISTARNAV AlmaguerNDA S 558.9 OTHER AND UNSPECIFIED NONINFECTIOUS GASTROENTERITIS AND COLITIS 10/28/2011 SOFIA CHILDS LASHAY S 564.00 CONSTIPATION 10/28/2011 ARNAV BLACK APRNNDA S 558.9 OTHER AND UNSPECIFIED NONINFECTIOUS GASTROENTERITIS AND COLITIS 10/28/2011 SOFIA COMPUTER TRAINING SPECIALIST, LASHAY S 564.00 CONSTIPATION 10/28/2011 ESVIN LINDA MD 558.9 OTHER AND UNSPECIFIED NONINFECTIOUS GASTROENTERITIS AND COLITIS 10/28/2011 ESVIN LINDA MD 564.00 CONSTIPATION 10/28/2011 SOFIA COMPUTER TRAINING SPECIALIST, LASHAY S 558.9 OTHER AND UNSPECIFIED NONINFECTIOUS GASTROENTERITIS AND COLITIS 10/28/2011 SOFIA COMPUTER TRAINING SPECIALIST, LASHAY S 564.00 CONSTIPATION 10/28/2011 SOFIA COMPUTER TRAINING SPECIALIST, LASHAY S 558.9 OTHER AND UNSPECIFIED NONINFECTIOUS GASTROENTERITIS AND COLITIS 10/28/2011 SOFIA COMPUTER TRAINING SPECIALIST, LASHAY S 564.00 CONSTIPATION 10/28/2011 SOFIA COMPUTER TRAINING SPECIALIST, LASHAY S 558.9 OTHER AND UNSPECIFIED NONINFECTIOUS GASTROENTERITIS AND COLITIS 10/28/2011 SOFIA COMPUTER TRAINING SPECIALIST, LASHAY S 564.00 CONSTIPATION 10/28/2011 SOFIA OLMOSN LASHAY S 558.9 OTHER AND UNSPECIFIED NONINFECTIOUS GASTROENTERITIS AND COLITIS 10/28/2011 SOFIA COMPUTER TRAINING SPECIALIST, LASHAY S 564.00 CONSTIPATION 10/28/2011 SOFIA COMPUTER TRAINING SPECIALIST, LASHAY S 558.9 OTHER AND UNSPECIFIED NONINFECTIOUS GASTROENTERITIS AND COLITIS 10/28/2011 SOFIA COMPUTER TRAINING SPECIALIST, LASHAY S 564.00 CONSTIPATION 10/28/2011 SOFIA COMPUTER TRAINING SPECIALIST, LASHAY S 558.9 OTHER AND UNSPECIFIED NONINFECTIOUS GASTROENTERITIS AND COLITIS 10/28/2011 SOFIA COMPUTER TRAINING SPECIALIST, LASHAY S 564.00 CONSTIPATION 10/28/2011 HALEY DPM, KRYSTLE 558.9 OTHER AND UNSPECIFIED NONINFECTIOUS GASTROENTERITIS AND COLITIS 10/28/2011 HALEY DPM, KRYSTLE 564.00 CONSTIPATION 10/28/2011 MADL COMPUTER TRAINING SPECIALIST, RAJIV L 558.9 OTHER AND UNSPECIFIED NONINFECTIOUS GASTROENTERITIS AND COLITIS 10/28/2011 MADL COMPUTER TRAINING SPECIALIST, RAJIV L 564.00 CONSTIPATION 10/28/2011 SOFIA COMPUTER TRAINING SPECIALIST, LASHAY S 558.9 OTHER AND UNSPECIFIED NONINFECTIOUS GASTROENTERITIS AND COLITIS 10/28/2011 SOFIA COMPUTER TRAINING SPECIALIST, LASHAY S 564.00 CONSTIPATION 12/09/2011 LOPEZ DO, PARADISE K 338.29 CHRONIC PAIN 12/09/2011 LOPEZ DO PARADISE K 338.29 CHRONIC PAIN 12/09/2011 SOFIA COMPUTER TRAINING SPECIALIST, LASHAY S 338.29 CHRONIC PAIN 12/09/2011 338.29 CHRONIC PAIN 12/09/2011 LOPEZ DO PARADISE K 338.29 CHRONIC PAIN 12/09/2011 LOPEZ DO PARADISE K 338.29 CHRONIC PAIN 12/09/2011 LOPEZ DO, PARADISE K 338.29 CHRONIC PAIN 12/09/2011 SOFIA COMPUTER TRAINING SPECIALIST, LASHAY S 338.29 CHRONIC PAIN 12/09/2011 SOFIA OLMOSN, LASHAY S 338.29 CHRONIC PAIN 12/09/2011 ESVIN LINDA MD 338.29 CHRONIC PAIN 12/09/2011 SOFIA COMPUTER TRAINING SPECIALIST, LASHAY S 338.29 CHRONIC PAIN 12/09/2011 SOFIA COMPUTER TRAINING SPECIALISTARNAVLASHAY S 338.29 CHRONIC PAIN 12/09/2011 SOFIA OLMOSN, LASHAY S 338.29 CHRONIC PAIN 12/09/2011 SOFIA COMPUTER TRAINING SPECIALIST, LASHAY S 338.29 CHRONIC PAIN 12/09/2011 SOFIA COMPUTER TRAINING SPECIALIST, LASHAY S 338.29 CHRONIC PAIN 12/09/2011 SOFIA COMPUTER TRAINING SPECIALIST, LASHAY S 338.29 CHRONIC PAIN 12/09/2011 HALEY DPM, KRYSTLE 338.29 CHRONIC PAIN 12/09/2011 MADL COMPUTER TRAINING SPECIALIST, RAJIV L 338.29 CHRONIC PAIN 12/09/2011 SOFIA COMPUTER TRAINING SPECIALIST, LASHAY S 338.29 CHRONIC PAIN 12/23/2011 LOPEZ DO, PARADISE K 723.1 CERVICALGIA 12/23/2011 LOPEZ DO, PARADISE K 785.6 ENLARGEMENT OF LYMPH NODES 12/23/2011 LOPEZ DO, PARADISE K 723.1 CERVICALGIA 12/23/2011 LOPEZ DO, PARADISE K 785.6 ENLARGEMENT OF LYMPH NODES 12/23/2011 SOFIA COMPUTER TRAINING SPECIALIST, LASHAY S 723.1 CERVICALGIA 12/23/2011 SOFIA COMPUTER TRAINING SPECIALIST, LASHAY S 785.6 ENLARGEMENT OF LYMPH NODES [...] 785.6 ENLARGEMENT OF LYMPH NODES 12/23/2011 SOFIA COMPUTER TRAINING SPECIALIST, LASHAY S 723.1 CERVICALGIA 12/23/2011 SOFIA COMPUTER TRAINING SPECIALIST, LASHAY S 785.6 ENLARGEMENT OF LYMPH NODES 12/23/2011 SOFIA COMPUTER TRAINING SPECIALIST, LASHAY S 723.1 CERVICALGIA 12/23/2011 SOFIA COMPUTER TRAINING SPECIALIST, LASHAY S 785.6 ENLARGEMENT OF LYMPH NODES 12/23/2011 ESVIN LINDA MD 723.1 CERVICALGIA 12/23/2011 ESVIN LINDA MD 785.6 ENLARGEMENT OF LYMPH NODES 12/23/2011 SOFIA COMPUTER TRAINING SPECIALIST, LASHAY S 723.1 CERVICALGIA 12/23/2011 SOFIA COMPUTER TRAINING SPECIALIST, LASHAY S 785.6 ENLARGEMENT OF LYMPH NODES 12/23/2011 SOFIA COMPUTER TRAINING SPECIALIST, LASHAY S 723.1 CERVICALGIA 12/23/2011 SOFIA COMPUTER TRAINING SPECIALIST, LASHAY S 785.6 ENLARGEMENT OF LYMPH NODES 12/23/2011 SOFIA COMPUTER TRAINING SPECIALIST, LASHAY S 723.1 CERVICALGIA 12/23/2011 SOFIA COMPUTER TRAINING SPECIALIST, LASHAY S 785.6 ENLARGEMENT OF LYMPH NODES 12/23/2011 SOFIA COMPUTER TRAINING SPECIALIST, LASHAY S 723.1 CERVICALGIA 12/23/2011 SOFIA COMPUTER TRAINING SPECIALIST, LASHAY S 785.6 ENLARGEMENT OF LYMPH NODES 12/23/2011 SOFIA COMPUTER TRAINING SPECIALIST, LASHAY S 723.1 CERVICALGIA 12/23/2011 SOFIA COMPUTER TRAINING SPECIALIST, LASHAY S 785.6 ENLARGEMENT OF LYMPH NODES 12/23/2011 SOFIA COMPUTER TRAINING SPECIALIST, LASHAY S 723.1 CERVICALGIA 12/23/2011 SOFIA COMPUTER TRAINING SPECIALIST, LASHAY S 785.6 ENLARGEMENT OF LYMPH NODES 12/23/2011 HALEY DPM, KRYSTLE 723.1 CERVICALGIA 12/23/2011 HALEY DPM, KRYSTLE 785.6 ENLARGEMENT OF LYMPH NODES 12/23/2011 MADL COMPUTER TRAINING SPECIALIST, RAJIV L 723.1 CERVICALGIA 12/23/2011 MADL COMPUTER TRAINING SPECIALIST, RAJIV L 785.6 ENLARGEMENT OF LYMPH NODES 12/23/2011 SOFIA COMPUTER TRAINING SPECIALIST, LASHAY S 723.1 CERVICALGIA 12/23/2011 SOFIA COMPUTER TRAINING SPECIALIST, LASHAY S 785.6 ENLARGEMENT OF LYMPH NODES 03/14/2012 LOPEZ DO, PARADISE K 389.9 UNSPECIFIED HEARING LOSS 03/14/2012 LOPEZ DO, PARADISE K 690.10 SEBORRHEIC DERMATITIS UNSPECIFIED 03/14/2012 LOPEZ DO, PARADISE K 389.9 UNSPECIFIED HEARING LOSS 03/14/2012 LOPEZ DO, PARADISE K 690.10 SEBORRHEIC DERMATITIS UNSPECIFIED 03/14/2012 SOFIA COMPUTER TRAINING SPECIALIST, LASHAY S 389.9 UNSPECIFIED HEARING LOSS 03/14/2012 SOFIA COMPUTER TRAINING SPECIALIST, LASHAY S 690.10 SEBORRHEIC DERMATITIS UNSPECIFIED 03/14/2012 [...] PARADISE K 690.10 SEBORRHEIC DERMATITIS UNSPECIFIED 03/14/2012 BOB BLACK APRNA S 389.9 UNSPECIFIED HEARING LOSS 03/14/2012 BOB BLACK APRNA S 690.10 SEBORRHEIC DERMATITIS UNSPECIFIED 03/14/2012 BOB BLACK APRNA S 389.9 UNSPECIFIED HEARING LOSS 03/14/2012 BOB BLACK APRNA S 690.10 SEBORRHEIC DERMATITIS UNSPECIFIED 03/14/2012 ESVIN LINDA MD 389.9 UNSPECIFIED HEARING LOSS 03/14/2012 ESVIN LINDA MD 690.10 SEBORRHEIC DERMATITIS UNSPECIFIED 03/14/2012 ARNAV BLACK APRNNDA S 389.9 UNSPECIFIED HEARING LOSS 03/14/2012 ARNAV BLACK APRNNDA S 690.10 SEBORRHEIC DERMATITIS UNSPECIFIED 03/14/2012 SOFIA CHILDS LASHAY S 389.9 UNSPECIFIED HEARING LOSS 03/14/2012 ARNAV BLACK APRNNDA S 690.10 SEBORRHEIC DERMATITIS UNSPECIFIED 03/14/2012 SOFIA CHILDS LASHAY S 389.9 UNSPECIFIED HEARING LOSS 03/14/2012 SOFIA CHILDS LASHAY S 690.10 SEBORRHEIC DERMATITIS UNSPECIFIED 03/14/2012 SOFIA CHILDS LASHAY S 389.9 UNSPECIFIED HEARING LOSS 03/14/2012 SOFIA CHILDS LASHAY S 690.10 SEBORRHEIC DERMATITIS UNSPECIFIED 03/14/2012 SOFIA CHILDS LASHAY S 389.9 UNSPECIFIED HEARING LOSS 03/14/2012 SOFIA COMPUTER TRAINING SPECIALIST, LASHAY S 690.10 SEBORRHEIC DERMATITIS UNSPECIFIED 03/14/2012 SOFIA COMPUTER TRAINING SPECIALIST, LASHAY S 389.9 UNSPECIFIED HEARING LOSS 03/14/2012 SOFIA COMPUTER TRAINING SPECIALIST, LASHAY S 690.10 SEBORRHEIC DERMATITIS UNSPECIFIED 03/14/2012 HALEY DPM, KRYSTLE 389.9 UNSPECIFIED HEARING LOSS 03/14/2012 HALEY DPM, KRYSTLE 690.10 SEBORRHEIC DERMATITIS UNSPECIFIED 03/14/2012 MADL COMPUTER TRAINING SPECIALIST, RAJIV L 389.9 UNSPECIFIED HEARING LOSS 03/14/2012 MADL COMPUTER TRAINING SPECIALIST, RAJIV L 690.10 SEBORRHEIC DERMATITIS UNSPECIFIED 03/14/2012 SOFIA COMPUTER TRAINING SPECIALIST, LASHAY S 389.9 UNSPECIFIED HEARING LOSS 03/14/2012 SOFIA COMPUTER TRAINING SPECIALIST, LASHAY S 690.10 SEBORRHEIC DERMATITIS UNSPECIFIED 07/11/2012 [...] 493.92 ASTHMA WITH ACUTE EXACERBATION 07/11/2012 SOFIA COMPUTER TRAINING SPECIALIST, LASHAY S 493.92 ASTHMA WITH ACUTE EXACERBATION 07/11/2012 SOFIA COMPUTER TRAINING SPECIALIST, LASHAY S 493.92 ASTHMA WITH ACUTE EXACERBATION 07/11/2012 SOFIA COMPUTER TRAINING SPECIALIST, LASHAY S 493.92 ASTHMA WITH ACUTE EXACERBATION 07/11/2012 SOFIA COMPUTER TRAINING SPECIALIST, LASHAY S 493.92 ASTHMA WITH ACUTE EXACERBATION 07/11/2012 SOFIA COMPUTER TRAINING SPECIALIST, LASHAY S 493.92 ASTHMA WITH ACUTE EXACERBATION 07/11/2012 SOFIA COMPUTER TRAINING SPECIALIST, LASHAY S 493.92 ASTHMA WITH ACUTE EXACERBATION 07/11/2012 HALEY DPM, KRYSTLE 493.92 ASTHMA WITH ACUTE EXACERBATION 07/11/2012 FIORDALIZA COMPUTER TRAINING SPECIALIST, RAJIV Kuldeep 493.92 ASTHMA WITH ACUTE EXACERBATION 07/11/2012 SOFIA COMPUTER TRAINING SPECIALIST, LASHAY S 493.92 ASTHMA WITH ACUTE EXACERBATION 08/07/2012 LOPEZ DO, PARADISE K 729.2 NEURALGIA NEURITIS AND RADICULITIS UNSPECIFIED 08/07/2012 LOPEZ DO, PARADISE K V05.8 ZOSTAVAX DX 08/07/2012 LOPEZ DO, PARADISE K 729.2 NEURALGIA NEURITIS AND RADICULITIS UNSPECIFIED 08/07/2012 LOPEZ DO, PARADISE K V05.8 ZOSTAVAX DX 08/07/2012 SOFIA COMPUTER TRAINING SPECIALIST, LASHAY S 729.2 NEURALGIA NEURITIS AND RADICULITIS UNSPECIFIED 08/07/2012 SOFIA COMPUTER TRAINING SPECIALIST, LASHAY S V05.8 ZOSTAVAX DX 08/07/2012 729.2 NEURALGIA [...] PARADISE K V05.8 ZOSTAVAX DX 08/07/2012 SOFIA COMPUTER TRAINING SPECIALIST, LASHAY S 729.2 NEURALGIA NEURITIS AND RADICULITIS UNSPECIFIED 08/07/2012 SOFIA COMPUTER TRAINING SPECIALIST, LASHAY S V05.8 ZOSTAVAX DX 08/07/2012 SOFIA COMPUTER TRAINING SPECIALIST, LASHAY S 729.2 NEURALGIA NEURITIS AND RADICULITIS UNSPECIFIED 08/07/2012 SOFIA COMPUTER TRAINING SPECIALIST, LASHAY S V05.8 ZOSTAVAX DX 08/07/2012 ESVIN LINDA MD 729.2 NEURALGIA NEURITIS AND RADICULITIS UNSPECIFIED 08/07/2012 ESVIN LINDA MD V05.8 ZOSTAVAX DX 08/07/2012 SOFIA COMPUTER TRAINING SPECIALIST, LASHAY S 729.2 NEURALGIA NEURITIS AND RADICULITIS UNSPECIFIED 08/07/2012 SOFIA COMPUTER TRAINING SPECIALIST, LASHAY S V05.8 ZOSTAVAX DX 08/07/2012 SOFIA COMPUTER TRAINING SPECIALIST, LASHAY S 729.2 NEURALGIA NEURITIS AND RADICULITIS UNSPECIFIED 08/07/2012 SOFIA COMPUTER TRAINING SPECIALIST, LASHAY S V05.8 ZOSTAVAX DX 08/07/2012 SOFIA COMPUTER TRAINING SPECIALIST, LASHAY S 729.2 NEURALGIA NEURITIS AND RADICULITIS UNSPECIFIED 08/07/2012 SOFIA COMPUTER TRAINING SPECIALIST, LASHAY S V05.8 ZOSTAVAX DX 08/07/2012 SOFIA COMPUTER TRAINING SPECIALIST, LASHAY S 729.2 NEURALGIA NEURITIS AND RADICULITIS UNSPECIFIED 08/07/2012 SOFIA COMPUTER TRAINING SPECIALIST, LASHAY S V05.8 ZOSTAVAX DX 08/07/2012 SOFIA COMPUTER TRAINING SPECIALIST, LASHAY S 729.2 NEURALGIA NEURITIS AND RADICULITIS UNSPECIFIED 08/07/2012 SOFIA COMPUTER TRAINING SPECIALIST, LASHAY S V05.8 ZOSTAVAX DX 08/07/2012 SOFIA COMPUTER TRAINING SPECIALIST, LASHAY S 729.2 NEURALGIA NEURITIS AND RADICULITIS UNSPECIFIED 08/07/2012 SOFIA COMPUTER TRAINING SPECIALIST, LASHAY S V05.8 ZOSTAVAX DX 08/07/2012 HALEY DPM, KRYSTLE 729.2 NEURALGIA NEURITIS AND RADICULITIS UNSPECIFIED 08/07/2012 HALEY DPM, KRYSTLE V05.8 ZOSTAVAX DX 08/07/2012 MADL COMPUTER TRAINING SPECIALIST, RAJIV L 729.2 NEURALGIA NEURITIS AND RADICULITIS UNSPECIFIED 08/07/2012 MADL COMPUTER TRAINING SPECIALIST, RAJIV L V05.8 ZOSTAVAX DX 08/07/2012 SOFIA COMPUTER TRAINING SPECIALIST, LASHAY S 729.2 NEURALGIA NEURITIS AND RADICULITIS UNSPECIFIED 08/07/2012 SOFIA CHILDS LASHAY S V05.8 ZOSTAVAX DX 10/29/2012 Ot 487.1 FLU W RESP MANIFEST NEC 10/29/2012 Ot 786.2 COUGH 06/25/2013 LOPEZ DO, PARADISE K V04.81 FLU SHOT 06/25/2013 LOPEZ DO, PARADISE K V04.81 FLU SHOT 06/25/2013 LOPEZ DO, PARADISE K V04.81 FLU SHOT 06/25/2013 SOFIA COMPUTER TRAINING SPECIALIST LASHAY S V04.81 FLU SHOT 06/25/2013 SOFIA CHILDS, LASHAY S V04.81 FLU SHOT 06/25/2013 ESVIN LINDA MD V04.81 FLU SHOT 06/25/2013 SOFIA COMPUTER TRAINING SPECIALIST, LASHAY S V04.81 FLU SHOT 06/25/2013 SOFIA COMPUTER TRAINING SPECIALIST, LASHAY S V04.81 FLU SHOT 06/25/2013 SOFIA COMPUTER TRAINING SPECIALIST, LASHAY S V04.81 FLU SHOT 06/25/2013 SOFIA COMPUTER TRAINING SPECIALIST, LASHAY S V04.81 FLU SHOT 06/25/2013 SOFIA COMPUTER TRAINING SPECIALIST LASHAY S V04.81 FLU SHOT 06/25/2013 SOFIA COMPUTER TRAINING SPECIALIST, LASHAY S V04.81 FLU SHOT 06/25/2013 HALEY DPM, KRYSTLE V04.81 FLU SHOT 06/25/2013 MADKuldeep COMPUTER TRAINING SPECIALISTRAJIV Almaguer L V04.81 FLU SHOT 06/25/2013 SOFIA COMPUTER TRAINING SPECIALIST, LASHAY S V04.81 FLU SHOT 07/25/2013 LOPEZ DO, PARADISE K 786.2 COUGH 07/25/2013 LOPEZ DO, PARADISE K 786.2 COUGH 07/25/2013 SOFIA COMPUTER TRAINING SPECIALIST, LASHAY S 786.2 COUGH 07/25/2013 SOFIA CHILDS, LASHAY S 786.2 COUGH 07/25/2013 ESVIN LINDA MD 786.2 COUGH 07/25/2013 SOFIA COMPUTER TRAINING SPECIALIST, LASHAY S 786.2 COUGH 07/25/2013 SOFIA COMPUTER TRAINING SPECIALIST, LASHAY S 786.2 COUGH 07/25/2013 SOFIA COMPUTER TRAINING SPECIALIST, LASHAY S 786.2 COUGH 07/25/2013 SOFIA COMPUTER TRAINING SPECIALIST, LASHAY S 786.2 COUGH 07/25/2013 SOFIA COMPUTER TRAINING SPECIALIST, LASHAY S 786.2 COUGH 07/25/2013 SOFIA COMPUTER TRAINING SPECIALIST, LASHAY S 786.2 COUGH 07/25/2013 HALEY DPM, KRYSTLE 786.2 COUGH 07/25/2013 MADL COMPUTER TRAINING SPECIALIST, RAJIV L 786.2 COUGH 07/25/2013 SOFIA COMPUTER TRAINING SPECIALIST, LASHAY S 786.2 COUGH 08/23/2013 LOPEZ DO, PARADISE K 338.11 PAIN - ACUTE PAIN DUE TO TRAUMA 08/23/2013 LOPEZ DO, PARADISE K 733.92 CHONDROMALACIA 08/23/2013 SOFIA COMPUTER TRAINING SPECIALIST, LASHAY S 338.11 PAIN - ACUTE PAIN DUE TO TRAUMA 08/23/2013 SOFIA COMPUTER TRAINING SPECIALIST, LASHAY S 733.92 CHONDROMALACIA 08/23/2013 SOFIA COMPUTER TRAINING SPECIALIST, LASHAY S 338.11 PAIN - ACUTE PAIN DUE TO TRAUMA 08/23/2013 SOFIA COMPUTER TRAINING SPECIALIST, LASHAY S 733.92 CHONDROMALACIA 08/23/2013 ESVIN LINDA MD 338.11 PAIN - ACUTE PAIN DUE TO TRAUMA 08/23/2013 ESVIN LINDA MD 733.92 CHONDROMALACIA 08/23/2013 SOFIA COMPUTER TRAINING SPECIALIST, LASHAY S 338.11 PAIN - ACUTE PAIN DUE TO TRAUMA 08/23/2013 SOFIA COMPUTER TRAINING SPECIALIST, LASHAY S 733.92 CHONDROMALACIA 08/23/2013 SOFIA COMPUTER TRAINING SPECIALIST, LASHAY S 338.11 PAIN - ACUTE PAIN DUE TO TRAUMA 08/23/2013 SOFIA COMPUTER TRAINING SPECIALIST, LASHAY S 733.92 CHONDROMALACIA 08/23/2013 SOFIA COMPUTER TRAINING SPECIALIST, LASHAY S 338.11 PAIN - ACUTE PAIN DUE TO TRAUMA 08/23/2013 SOFIA COMPUTER TRAINING SPECIALIST, LASHAY S 733.92 CHONDROMALACIA 08/23/2013 SOFIA COMPUTER TRAINING SPECIALIST, LASHAY S 338.11 PAIN - ACUTE PAIN DUE TO TRAUMA 08/23/2013 SOFIA COMPUTER TRAINING SPECIALIST, LASHAY S 733.92 CHONDROMALACIA 08/23/2013 SOFIA COMPUTER TRAINING SPECIALIST, LASHAY S 338.11 PAIN - ACUTE PAIN DUE TO TRAUMA 08/23/2013 SOFIA COMPUTER TRAINING SPECIALIST, LASHAY S 733.92 CHONDROMALACIA 08/23/2013 SOFIA CHILDS, LASHAY S 338.11 PAIN - ACUTE PAIN DUE TO TRAUMA 08/23/2013 SOFIA CHILDS, LAHSAY S 733.92 CHONDROMALACIA 08/23/2013 HALEY DPM, KRYSTLE 338.11 PAIN - ACUTE PAIN DUE TO TRAUMA 08/23/2013 HALEY DPM, KRYSTLE 733.92 CHONDROMALACIA 08/23/2013 MADL COMPUTER TRAINING SPECIALIST, RAJIV L 338.11 PAIN - ACUTE PAIN DUE TO TRAUMA 08/23/2013 MADL COMPUTER TRAINING SPECIALIST, RAJIV L 733.92 CHONDROMALACIA 08/23/2013 SOFIA CHILDS, LASHAY S 338.11 PAIN - ACUTE PAIN DUE TO TRAUMA 08/23/2013 ARNAV BLACK APRNNDA S 733.92 CHONDROMALACIA 10/16/2013 ARNAV BLACK APRNNDA S 389.9 HEARING LOSS UNSPEC 10/16/2013 ARNAV BLACK APRNNDA S 729.5 PAIN- HAND 10/16/2013 ARNAV BLACK APRNNDA S 389.9 HEARING LOSS UNSPEC 10/16/2013 SOFIA CHILDS LASHAY S 729.5 PAIN- HAND 10/16/2013 ESVIN LINDA [...] S 389.9 HEARING LOSS UNSPEC 10/16/2013 SOFIA COMPUTER TRAINING SPECIALIST, LASHAY S 729.5 PAIN- HAND 10/16/2013 SOFIA COMPUTER TRAINING SPECIALIST, LASHAY S 389.9 HEARING LOSS UNSPEC 10/16/2013 SOFIA COMPUTER TRAINING SPECIALIST, LASHAY S 729.5 PAIN- HAND 10/16/2013 HALEY DPM, KRYSTLE 389.9 HEARING LOSS UNSPEC 10/16/2013 HALEY DPM, KRYSTLE 729.5 PAIN- HAND 10/16/2013 MADL COMPUTER TRAINING SPECIALIST, RAJIV L 389.9 HEARING LOSS UNSPEC 10/16/2013 MADL COMPUTER TRAINING SPECIALIST, RAJIV L 729.5 PAIN- HAND 10/16/2013 SOFIA COMPUTER TRAINING SPECIALIST, LASHAY S 389.9 HEARING LOSS UNSPEC 10/16/2013 SOFIA CHILDS LASHAY S 729.5 PAIN- HAND 02/22/2014 ALEXEI WELLER, ESVIN 728.85 SPASM OF MUSCLE 02/22/2014 SOFIA COMPUTER TRAINING SPECIALIST, LASHAY S 728.85 SPASM OF MUSCLE 02/22/2014 SOFIA COMPUTER TRAINING SPECIALIST, LASHAY S 728.85 SPASM OF MUSCLE 02/22/2014 SOFIA COMPUTER TRAINING SPECIALIST, LASHAY S 728.85 SPASM OF MUSCLE 02/22/2014 SOFIA COMPUTER TRAINING SPECIALIST, LASHAY S 728.85 SPASM OF MUSCLE 02/22/2014 SOFIA COMPUTER TRAINING SPECIALIST, LASHAY S 728.85 SPASM OF MUSCLE 02/22/2014 SOFIA COMPUTER TRAINING SPECIALIST, LASHAY S 728.85 SPASM OF MUSCLE 02/22/2014 HALEY DPM, KRYSTLE 728.85 SPASM OF MUSCLE 02/22/2014 MADL COMPUTER TRAINING SPECIALIST, RAJIV L 728.85 SPASM OF MUSCLE 02/22/2014 SOFIA COMPUTER TRAINING SPECIALIST, LASHAY S 728.85 SPASM OF MUSCLE 03/26/2014 SOFIA COMPUTER TRAINING SPECIALIST, LASHAY S 719.47 PAIN- FOOT 03/26/2014 SOFIA COMPUTER TRAINING SPECIALIST, LASHAY S 787.91 DIARRHEA 03/26/2014 SFOIA COMPUTER TRAINING SPECIALIST, LASHAY S 789.04 ABDOMINAL PAIN LEFT LOWER QUADRANT 03/26/2014 SOFIA CHILDS, LASHAY S 719.47 PAIN- FOOT 03/26/2014 SOFIA COMPUTER TRAINING SPECIALIST, LASHAY S 787.91 DIARRHEA 03/26/2014 SOFIA COMPUTER TRAINING SPECIALIST, LASHAY S 789.04 ABDOMINAL PAIN LEFT LOWER QUADRANT 03/26/2014 SOFIA COMPUTER TRAINING SPECIALIST, LASHAY S 719.47 PAIN- FOOT 03/26/2014 SOFIA COMPUTER TRAINING SPECIALIST, LASHAY S 787.91 DIARRHEA 03/26/2014 SOFIA COMPUTER TRAINING SPECIALIST, LASHAY S 789.04 ABDOMINAL PAIN LEFT LOWER QUADRANT 03/26/2014 SOFIA COMPUTER TRAINING SPECIALIST, LASHAY S 719.47 PAIN- FOOT 03/26/2014 SOFIA COMPUTER TRAINING SPECIALIST, LASHAY S 787.91 DIARRHEA 03/26/2014 SOFIA COMPUTER TRAINING SPECIALIST, LASHAY S 789.04 ABDOMINAL PAIN LEFT LOWER QUADRANT 03/26/2014 SOFIA COMPUTER TRAINING SPECIALIST, LASHAY S 719.47 PAIN- FOOT 03/26/2014 SOFIA COMPUTER TRAINING SPECIALIST, LASHAY S 787.91 DIARRHEA 03/26/2014 SOFIA COMPUTER TRAINING SPECIALIST, LASHAY S 789.04 ABDOMINAL PAIN LEFT LOWER QUADRANT 03/26/2014 SOFIA COMPUTER TRAINING SPECIALIST, LASHAY S 719.47 PAIN- FOOT 03/26/2014 SOFIA COMPUTER TRAINING SPECIALIST, LASHAY S 787.91 DIARRHEA 03/26/2014 SOFIA COMPUTER TRAINING SPECIALIST, LASHAY S 789.04 ABDOMINAL PAIN LEFT LOWER QUADRANT 03/26/2014 HALEY DPM, KRYSTLE 719.47 PAIN- FOOT 03/26/2014 HALEY DPM, KRYSTLE 787.91 DIARRHEA 03/26/2014 HALEY DPM, KRYSTLE 789.04 ABDOMINAL PAIN LEFT LOWER QUADRANT 03/26/2014 MADL COMPUTER TRAINING SPECIALIST, RAJIV L 719.47 PAIN- FOOT 03/26/2014 MADL COMPUTER TRAINING SPECIALIST, RAJIV L 787.91 DIARRHEA 03/26/2014 MADL COMPUTER TRAINING SPECIALIST, RAJIV L 789.04 ABDOMINAL PAIN LEFT LOWER QUADRANT 03/26/2014 SOFIA COMPUTER TRAINING SPECIALIST, LASHAY S 719.47 PAIN- FOOT 03/26/2014 SOFIA COMPUTER TRAINING SPECIALIST, LASHAY S 787.91 DIARRHEA 03/26/2014 SOFIA COMPUTER TRAINING SPECIALIST, LASHAY S 789.04 ABDOMINAL PAIN LEFT LOWER QUADRANT 04/30/2014 SOFIA COMPUTER TRAINING SPECIALIST, LASHAY S 719.40 ARTHRAIGIA UNSPEC 04/30/2014 SOFIA COMPUTER TRAINING SPECIALIST, LASHAY S 719.40 ARTHRAIGIA UNSPEC 04/30/2014 SOFIA COMPUTER TRAINING SPECIALIST, LASHAY S 719.40 ARTHRAIGIA UNSPEC 04/30/2014 SOFIA COMPUTER TRAINING SPECIALIST, LASHAY S 719.40 ARTHRAIGIA UNSPEC 04/30/2014 SOFIA COMPUTER TRAINING SPECIALIST, LASHAY S 719.40 ARTHRAIGIA UNSPEC 04/30/2014 HALEY DPM, KRYSTLE 719.40 ARTHRAIGIA UNSPEC 04/30/2014 MADL COMPUTER TRAINING SPECIALIST, RAJIV L 719.40 ARTHRAIGIA UNSPEC 04/30/2014 SOFIA COMPUTER TRAINING SPECIALIST, LASHAY S 719.40 ARTHRAIGIA UNSPEC 06/26/2014 CAMILA WELLER, DANGELO A Ot 723.1 06/26/2014 CAMILA WELLER, DANGELO A Ot 847.0 06/26/2014 CAMILA WELLER, DANGELO A Ot 959.01 06/26/2014 CAMLIA WELLER, DANGELO A Ot E000.8 06/26/2014 CAMILA WELLER, DANGELO A Ot E812.0 07/04/2014 SOFIA COMPUTER TRAINING SPECIALIST, LASHAY S 289.3 LYMPHADENITIS (PRIMARY) 07/04/2014 SOFIA COMPUTER TRAINING SPECIALIST, LASHAY S 339.20 POSTTRAUMATIC HEADACHE UNSPECIFIED 07/04/2014 SOFIA COMPUTER TRAINING SPECIALIST, LASHAY S V03.82 PPV23 (PNEUMOVAX) DX 07/04/2014 SOFIA COMPUTER TRAINING SPECIALIST, LASHAY S V06.1 TDAP DX 07/04/2014 SOFIA COMPUTER TRAINING SPECIALIST, LASHAY S 289.3 LYMPHADENITIS (PRIMARY) 07/04/2014 SOFIA COMPUTER TRAINING SPECIALIST, LASHAY S 339.20 POSTTRAUMATIC HEADACHE UNSPECIFIED 07/04/2014 SOFIA COMPUTER TRAINING SPECIALIST, LASHAY S V03.82 PPV23 (PNEUMOVAX) DX 07/04/2014 SOFIA COMPUTER TRAINING SPECIALIST, LASHAY S V06.1 TDAP DX 07/04/2014 SOFIA COMPUTER TRAINING SPECIALIST, LASHAY S 289.3 LYMPHADENITIS (PRIMARY) 07/04/2014 SOFIA COMPUTER TRAINING SPECIALIST, LASHAY S 339.20 POSTTRAUMATIC HEADACHE UNSPECIFIED 07/04/2014 SOFIA COMPUTER TRAINING SPECIALIST, LASHAY S V03.82 PPV23 (PNEUMOVAX) DX 07/04/2014 SOFIA CHILDS, LASHAY S V06.1 TDAP DX 07/04/2014 HALEY DPM, KRYSTLE 289.3 LYMPHADENITIS (PRIMARY) 07/04/2014 HALEY DPM, KRYSTLE 339.20 POSTTRAUMATIC HEADACHE UNSPECIFIED 07/04/2014 HALEY DPM, KRYSTLE V03.82 PPV23 (PNEUMOVAX) DX 07/04/2014 HALEY DPM, KRYSTLE V06.1 TDAP DX 07/04/2014 MADL COMPUTER TRAINING SPECIALIST, RAJIV L 289.3 LYMPHADENITIS (PRIMARY) 07/04/2014 MADL COMPUTER TRAINING SPECIALIST, RAJIV L 339.20 POSTTRAUMATIC HEADACHE UNSPECIFIED 07/04/2014 MADL COMPUTER TRAINING SPECIALIST, RAJIV L V03.82 PPV23 (PNEUMOVAX) DX 07/04/2014 MADL COMPUTER TRAINING SPECIALIST, RAJIV L V06.1 TDAP DX 07/04/2014 BOB BLACK APRNA S 289.3 LYMPHADENITIS (PRIMARY) 07/04/2014 ARNAV BLACK APRNNDA S 339.20 POSTTRAUMATIC HEADACHE UNSPECIFIED 07/04/2014 ARNAV BLACK APRNNDA S V03.82 PPV23 (PNEUMOVAX) DX 07/04/2014 ARNAV BLACK APRNNDA S V06.1 TDAP DX 07/30/2014 BOB BLACK APRNA S 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 07/30/2014 BOB BLACK APRNA S 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 07/30/2014 HALEY DPM, KRYSTLE 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 07/30/2014 MADL COMPUTER TRAINING SPECIALIST, RAJIV L 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 07/30/2014 ARNAV BLACK APRNNDA S 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 07/31/2014 LASHAY BLACK MANAGER DISTRIBUTION CENTER Ot 289.3 08/13/2014 LASHAY BLACK [facility] Ot 782.2 09/06/2014 HALEY DPM, KRYSTLE 727.42 GANGLION OF TENDON SHEATH 09/06/2014 MADL COMPUTER TRAINING SPECIALIST, RAJIV L 727.42 GANGLION OF TENDON SHEATH 09/06/2014 LASHAY BLACK APRN S 727.42 GANGLION OF TENDON SHEATH 10/04/2014 MAGDALENOL COMPUTER TRAINING SPECIALISTKENNETHRAJIV L 465.9 UPPER RESPIRATORY INFECTION 10/04/2014 MADL COMPUTER TRAINING SPECIALIST, RAJIV L 719.41 PAIN IN JOINT INVOLVING SHOULDER REGION 10/04/2014 LASHAY BLACK APRN S 465.9 UPPER RESPIRATORY INFECTION 10/04/2014 LASHAY BLACK APRN S 719.41 PAIN IN JOINT INVOLVING SHOULDER REGION 10/31/2014 LASHAY BLACKP Ot 289.3 10/31/2014 LASHAY BLACKP Ot 339.20 [...] LASHAY BLACKP Ot 289.3 12/31/2014 [facility] Ot 723.1 12/31/2014 LASHAY BLACKP Ot 729.2 12/31/2014 [facility] Ot V57.1 12/31/2014 [facility] Ot 723.0 12/31/2014 LASHAY BLACKP Ot 723.1 12/31/2014 [facility] Ot 729.2 12/31/2014 LASHAY BLACKP Ot V57.1 12/31/2014 LASHAY BLACKP Ot 723.1 12/31/2014 LASHAY BLACKP Ot 729.2 12/31/2014 LASHAY BLACKP Ot V57.1 02/14/2015 LASHAY BLACKP Ot 723.1 [...] 11/19/2015 Ot V72.81 11/19/2015 Ot V74.8 11/19/2015 LASHAY BLACKP Ot 289.3 11/19/2015 LASHAY BLACKP Ot 723.0 11/19/2015 LASHAY BLACKP Ot M54.2 11/20/2015 ERIC LOPEZ COMPUTER TRAINING SPECIALIST Ot I10 ESSENTIAL (PRIMARY) HYPERTENSION 11/20/2015 ERIC LOPEZ COMPUTER TRAINING SPECIALIST Ot R51 HEADACHE 11/21/2015 JERSON MORGAN MD Ot I10 ESSENTIAL (PRIMARY) HYPERTENSION 11/21/2015 JERSON MORGAN MD Ot R10.84 GENERALIZED ABDOMINAL PAIN 11/21/2015 JERSON MORGAN MD Ot R11.2 NAUSEA WITH VOMITING, UNSPECIFIED 11/21/2015 JERSON MORGAN MD Ot R51 HEADACHE 11/21/2015 JERSON MORGAN MD Ot Z79.899 OTHER HALF-WAY (CURRENT) DRUG THERAPY 11/21/2015 JERSON MORGAN MD Ot Z87.891 PERSONAL HISTORY OF NICOTINE DEPENDENCE 11/21/2015 JERSON MORGAN MD Ot I10 11/21/2015 JERSON MORGAN MD Ot R10.84 11/21/2015 JERSON MORGAN MD Ot R11.2 11/21/2015 JERSON MORGAN MD Ot R51 11/21/2015 JERSON MORGAN MD Ot Z79.899 11/21/2015 JERSON MORGAN MD, Ot Z87.891 02/02/2016 MORELIA HERNANDEZ DO Ot G89.29 OTHER CHRONIC PAIN 02/02/2016 MORELIA HERNANDEZ DO Ot K57.90 DVRTCLOS OF INTEST, PART UNSP, W/O PERF 02/02/2016 MORELIA HERNANDEZ DO Ot M54.5 LOW BACK PAIN 02/02/2016 MORELIA HERNANDEZ DO Ot R11.2 NAUSEA WITH VOMITING, UNSPECIFIED 02/02/2016 DAVID DO, MORELIA K Ot R19.7 DIARRHEA, UNSPECIFIED 02/02/2016 DAVID DO, MORELIA K Ot Z79.891 COMMISSIONING SPECIALIST (CURRENT) USE OF OPIATE ANALGE 02/03/2016 DAVID [...] 02/03/2016 DAVID DO, MORELIA K Ot Z79.891 COMMISSIONING SPECIALIST (CURRENT) USE OF OPIATE ANALGE 02/08/2016 DAVID [...] 02/08/2016 DAVID DO, MORELIA K Ot Z79.891 HALF-WAY (CURRENT) USE OF OPIATE ANALGE 02/28/2016 DAVID [...] 02/28/2016 DAVID DO, MORELIA K Ot Z79.891 HALF-WAY (CURRENT) USE OF OPIATE ANALGE 03/08/2016 Ot 573.8 LIVER DISORDERS NEC 03/08/2016 Ot 574.20 CHOLELITHIASIS NOS 03/08/2016 Ot 530.81 ESOPHAGEAL REFLUX 03/08/2016 Ot 553.3 DIAPHRAGMATIC HERNIA 03/08/2016 Ot 569.3 RECTAL ANAL HEMORRHAGE 03/08/2016 Ot 574.20 CHOLELITHIASIS NOS 03/08/2016 Ot 709.9 SKIN DISORDER NOS 03/08/2016 Ot V72.63 PRE- PROCEDURAL LABORATORY EXAMINATION 03/08/2016 Ot V72.81 EXAM-PRE- OPERATIVE CARDIOVASCULAR 03/08/2016 Ot V74.8 SCREEN- BACTERIAL DIS NEC 03/08/2016 LASHAY BLACK Ot 289.3 [...] 709.9 SKIN DISORDER NOS 03/10/2016 Ot V72.63 PRE- PROCEDURAL LABORATORY EXAMINATION 03/10/2016 Ot V72.81 EXAM-PRE- OPERATIVE CARDIOVASCULAR 03/10/2016 Ot V74.8 SCREEN- BACTERIAL DIS NEC 03/10/2016 LASHAY BLACK Ot 289.3 LYMPHADENITIS NOS 03/10/2016 LASHAY BLACK Ot 723.0 CERVICAL SPINAL STENOSIS 03/10/2016 [facility]AY [facility] Ot M54.2 CERVICALGIA 03/10/2016 MIRIAN WELLER FACC, ALI FACP CCDS Ot R07.9 CHEST PAIN, UNSPECIFIED 03/10/2016 Ot R07.9 CHEST PAIN, UNSPECIFIED 03/10/2016 JACKSON DO, KODY L Ot E86.0 DEHYDRATION 03/10/2016 JACKSON DO, KODY L Ot T67.5XXA HEAT EXHAUSTION, UNSPECIFIED, INITIAL EN 03/16/2016 [facility] Ot M25.50 PAIN IN UNSPECIFIED JOINT 03/16/2016 [facility] Ot R50.9 FEVER, UNSPECIFIED 05/25/2016 Ot R07.9 CHEST PAIN, UNSPECIFIED 05/25/2016 [facility] Ot M25.50 PAIN IN UNSPECIFIED JOINT 05/25/2016 [facility] Ot R50.9 FEVER, UNSPECIFIED 06/09/2016 [facility] Ot 289.3 LYMPHADENITIS NOS 06/09/2016 [facility] Ot 723.0 CERVICAL SPINAL STENOSIS 06/09/2016 [facility] Ot M54.2 CERVICALGIA 06/09/2016 MIRIAN WELLER FAC, HAZEL BENNETT CCDS Ot R07.9 CHEST PAIN, UNSPECIFIED 06/09/2016 Ot R07.9 CHEST PAIN, UNSPECIFIED 06/09/2016 [facility] Ot M25.50 PAIN IN UNSPECIFIED JOINT 06/09/2016 [facility] Ot R50.9 FEVER, UNSPECIFIED 06/09/2016 IDMA FOSS APRN Ot G47.33 OBSTRUCTIVE SLEEP APNEA (ADULT) (PEDIATR 06/14/2016 DIMA FOSS APRN Ot G47.33 OBSTRUCTIVE SLEEP APNEA (ADULT) (PEDIATR 06/14/2016 DIMA FOSS APRN Ot J45.909 UNSPECIFIED ASTHMA, UNCOMPLICATED 06/14/2016 DIMA FOSS APRN Ot R06.02 SHORTNESS OF BREATH 06/14/2016 DIMA FOSS APRN Ot G47.33 OBSTRUCTIVE SLEEP APNEA (ADULT) (PEDIATR 09/02/2016 ESTEVAN KINGSLEY DO Ot K21.9 GASTRO-ESOPHAGEAL REFLUX DISEASE WITHOUT 09/02/2016 ESTEVAN KINGSLEY DO Ot R19.7 DIARRHEA, UNSPECIFIED 09/02/2016 ESTEVAN KINGSLEY DO Ot Z01.818 ENCOUNTER FOR OTHER PREPROCEDURAL EXAMIN 09/03/2016 KINGSLEYESTEVAN CANALES DO D Ot K21.9 GASTRO-ESOPHAGEAL REFLUX DISEASE WITHOUT 09/03/2016 KINGSLEY DO, ESTEVAN D Ot R19.7 DIARRHEA, UNSPECIFIED 09/03/2016 KINGSLEY ESTEVAN [place]ENN[place] D Ot Z01.818 ENCOUNTER FOR OTHER PREPROCEDURAL EXAMIN 09/07/2016 DIMA FOSS COMPUTER TRAINING SPECIALIST Ot G47.33 OBSTRUCTIVE SLEEP APNEA (ADULT) (PEDIATR 09/07/2016 DIMA FOSS COMPUTER TRAINING SPECIALIST Ot J45.909 UNSPECIFIED ASTHMA, UNCOMPLICATED 09/07/2016 DIMA FOSS COMPUTER TRAINING SPECIALIST Ot R06.02 SHORTNESS OF BREATH 09/07/2016 KINGSLEY DO ESTEVAN D Ot D12.4 BENIGN NEOPLASM OF DESCENDING COLON 09/07/2016 KINGSLEY DO ESTEVAN D Ot K25.7 CHRONIC GASTRIC ULCER WITHOUT HEMORRHAGE 09/07/2016 KINGSLEY DO, ESTEVAN D Ot K29.70 GASTRITIS, UNSPECIFIED, WITHOUT BLEEDING 09/07/2016 KINGSLEY DO ESTEVAN D Ot K44.9 DIAPHRAGMATIC HERNIA WITHOUT OBSTRUCTION 09/07/2016 KINGSLEY DO, ESTEVAN D Ot K57.30 DVRTCLOS OF LG INT W/O PERFORATION OR AB 09/07/2016 KINGSLEY DO, ESTEVAN D Ot R19.7 DIARRHEA, UNSPECIFIED 09/09/2016 KINGSLEY DO ESTEVAN D Ot D12.4 BENIGN NEOPLASM OF DESCENDING COLON 09/09/2016 KINGSLEY DO, ESTEVAN D Ot K25.7 CHRONIC GASTRIC ULCER WITHOUT HEMORRHAGE 09/09/2016 KINGSLEY DO, ESTEVAN D Ot K29.70 GASTRITIS, UNSPECIFIED, WITHOUT BLEEDING 09/09/2016 KINGSLEY DOARNAVTT D Ot K44.9 DIAPHRAGMATIC HERNIA WITHOUT OBSTRUCTION 09/09/2016 KINGSLEY DO, ESTEVAN D Ot K57.30 DVRTCLOS OF LG INT W/O PERFORATION OR AB 09/09/2016 KINGSLEY DO ESTEVAN D Ot R19.7 DIARRHEA, UNSPECIFIED 10/04/2016 DIMA FOSS COMPUTER TRAINING SPECIALIST Ot G47.33 OBSTRUCTIVE SLEEP APNEA (ADULT) (PEDIATR 10/04/2016 DIMA FOSS COMPUTER TRAINING SPECIALIST Ot J45.909 UNSPECIFIED ASTHMA, UNCOMPLICATED 10/04/2016 DIMA FOSS COMPUTER TRAINING SPECIALIST Ot R06.02 SHORTNESS OF BREATH 02/02/2017 SOFIA, LASHAY [facility] Ot 289.3 LYMPHADENITIS NOS 02/02/2017 BOB BLACKA MANA[facility] Ot 723.0 CERVICAL SPINAL STENOSIS 02/02/2017 BOB BLACKA [facility]NA[facility] Ot M54.2 CERVICALGIA 02/02/2017 MIRIAN HA, ALI [facility] CCDS Ot R07.9 CHEST PAIN, UNSPECIFIED 02/02/2017 Ot R07.9 CHEST PAIN, UNSPECIFIED 02/02/2017 LASHAY BLACK [facility] Ot M25.50 PAIN IN UNSPECIFIED JOINT 02/02/2017 LASHAY BLACK [facility] Ot R50.9 FEVER, UNSPECIFIED 02/02/2017 DIMA FOSS APRN Ot G47.33 OBSTRUCTIVE SLEEP APNEA (ADULT) (PEDIATR 02/02/2017 DIMA FOSS COMPUTER TRAINING SPECIALIST Ot J45.909 UNSPECIFIED ASTHMA, UNCOMPLICATED 02/02/2017 DIMA FOSS COMPUTER TRAINING SPECIALIST Ot R06.02 SHORTNESS OF BREATH 02/18/2017 LASHAY [facility]ACK [facility] Ot 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 02/18/2017 LASHAY BLACK [facility] Ot R22.42 LOCALIZED SWELLING, MASS AND LUMP, LEFT 02/28/2017 LASHAY [facility]ACK [facility] Ot 289.3 LYMPHADENITIS NOS 02/28/2017 LASHAY [facility]ACK [facility] Ot 723.0 CERVICAL SPINAL STENOSIS 02/28/2017 LASHAY BLACK [facility] Ot M54.2 CERVICALGIA 02/28/2017 MIRIAN HA, ALI [facility] CCDS Ot R07.9 CHEST PAIN, UNSPECIFIED 02/28/2017 Ot R07.9 CHEST PAIN, UNSPECIFIED 02/28/2017 LASHAY BLACK [facility] Ot M25.50 PAIN IN UNSPECIFIED JOINT 02/28/2017 LASHAY BLACK [facility] Ot R50.9 FEVER, UNSPECIFIED 02/28/2017 DIMA FOSS APRN Ot G47.33 OBSTRUCTIVE SLEEP APNEA (ADULT) (PEDIATR 02/28/2017 DIMA FOSS COMPUTER TRAINING SPECIALIST Ot J45.909 UNSPECIFIED ASTHMA, UNCOMPLICATED 02/28/2017 DIMA FOSS COMPUTER TRAINING SPECIALIST Ot R06.02 SHORTNESS OF BREATH 02/28/2017 SOFIA, L[facility]AY [facility] Ot 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 02/28/2017 LASHAY BLACK [facility] Ot R22.42 LOCALIZED SWELLING, MASS AND LUMP, LEFT 03/04/2017 TIFFANY WELLER, JONAH Gutierrez Ot C44.709 UNSP MALIGNANT NEOPLASM SKIN/ LEFT LOWER 03/04/2017 JONAH NAVARRETE MD Ot F17.220 NICOTINE DEPENDENCE, CHEWING TOBACCO, UN 03/04/2017 JONAH NAVARRETE MD Ot I10 ESSENTIAL (PRIMARY) HYPERTENSION 03/04/2017 JONAH NAVARRETE MD Ot J44.9 CHRONIC OBSTRUCTIVE PULMONARY DISEASE, U 03/04/2017 JONAH NAVARRETE MD Ot J45.909 UNSPECIFIED ASTHMA, UNCOMPLICATED 03/04/2017 JONAH NAVARRETE MD Ot Z79.899 OTHER HALF-WAY (CURRENT) DRUG THERAPY 03/20/2017 JONAH NAVARRETE MD Ot C44.709 UNSP MALIGNANT NEOPLASM SKIN/ LEFT LOWER 03/20/2017 JONAH NAVARRETE MD Ot F17.220 NICOTINE DEPENDENCE, CHEWING TOBACCO, UN 03/20/2017 JONAH NAVARRETE MD Ot I10 ESSENTIAL (PRIMARY) HYPERTENSION 03/20/2017 JONAH NAVARRETE MD Ot J44.9 CHRONIC OBSTRUCTIVE PULMONARY DISEASE, U 03/20/2017 JONAH NAVARRETE MD Ot J45.909 UNSPECIFIED ASTHMA, UNCOMPLICATED 03/20/2017 JONAH NAVARRETE MD Ot Z79.899 OTHER HALF-WAY (CURRENT) DRUG THERAPY 03/26/2017 JONAH NAVARRETE MD Ot C44.709 UNSP MALIGNANT NEOPLASM SKIN/ LEFT LOWER 03/26/2017 JONAH NAVARRETE MD Ot F17.220 NICOTINE DEPENDENCE, CHEWING TOBACCO, UN 03/26/2017 JONAH NAVARRETE MD Ot I10 ESSENTIAL (PRIMARY) HYPERTENSION 03/26/2017 JONAH NAVARRETE MD Ot J44.9 CHRONIC OBSTRUCTIVE PULMONARY DISEASE, U 03/26/2017 JONAH NAVARRETE MD Ot J45.909 UNSPECIFIED ASTHMA, UNCOMPLICATED 03/26/2017 JONAH NAVARRETE MD Ot Z79.899 OTHER COMMISSIONING SPECIALIST (CURRENT) DRUG THERAPY 04/27/2017 YUNIER HESS MD Ot E78.00 PURE HYPERCHOLESTEROLEMIA, UNSPECIFIED 04/27/2017 YUNIER HESS MD Ot G43.909 MIGRAINE, UNSP, NOT INTRACTABLE, WITHOUT 04/27/2017 YUNIER HESS MD Ot G47.30 SLEEP APNEA, UNSPECIFIED 04/27/2017 YUNIER HESS MD Ot G89.29 OTHER CHRONIC PAIN 04/27/2017 YUNIER HESS MD Ot I10 ESSENTIAL (PRIMARY) HYPERTENSION 04/27/2017 YUNIER HESS MD, Ot J44.9 CHRONIC OBSTRUCTIVE PULMONARY DISEASE, U 04/27/2017 YUNIER HESS MD Ot K21.9 GASTRO-ESOPHAGEAL REFLUX DISEASE WITHOUT 04/27/2017 YUNIER HESS MD Ot M19.90 UNSPECIFIED OSTEOARTHRITIS, UNSPECIFIED 04/27/2017 YUNIER HESS MD Ot M54.9 DORSALGIA, UNSPECIFIED 04/27/2017 YUNIER HESS MD Ot N40.0 BENIGN PROSTATIC HYPERPLASIA WITHOUT LOW 04/27/2017 YUNIER HESS MD Ot S01.01XA LACERATION WITHOUT FOREIGN BODY OF SCALP 04/27/2017 YUNIER HESS MD Ot S06.0X0A CONCUSSION WITHOUT LOSS OF CONSCIOUSNESS 04/27/2017 YUNIER HESS MD Ot V80.010A ANIML-RIDR INJURED BY FALL FR HORSE IN N 04/27/2017 YUNIER HESS MD Ot W22.09XA STRIKING AGAINST OTHER STATIONARY OBJECT 04/27/2017 YUNIER HESS MD Ot Z87.891 PERSONAL HISTORY OF NICOTINE DEPENDENCE 04/27/2017 YUNIER HESS MD Ot Z90.49 ACQUIRED ABSENCE OF OTHER SPECIFIED PART 05/14/2017 YUNIER HESS MD Ot E78.00 PURE HYPERCHOLESTEROLEMIA, UNSPECIFIED 05/14/2017 YUNIER HESS MD Ot G43.909 MIGRAINE, UNSP, NOT INTRACTABLE, WITHOUT 05/14/2017 YUNIER HESS MD Ot G47.30 SLEEP APNEA, UNSPECIFIED 05/14/2017 YUNIER HESS MD Ot G89.29 OTHER CHRONIC PAIN 05/14/2017 YUNIER HESS MD Ot I10 ESSENTIAL (PRIMARY) HYPERTENSION 05/14/2017 YUNIER HESS MD, Ot J44.9 CHRONIC OBSTRUCTIVE PULMONARY DISEASE, U 05/14/2017 YUNIER HESS MD Ot K21.9 GASTRO-ESOPHAGEAL REFLUX DISEASE WITHOUT 05/14/2017 YUNIER HESS MD Ot M19.90 UNSPECIFIED OSTEOARTHRITIS, UNSPECIFIED 05/14/2017 YUNIER HESS MD, Ot M54.9 DORSALGIA, UNSPECIFIED 05/14/2017 YUNIER HESS MD Ot N40.0 BENIGN PROSTATIC HYPERPLASIA WITHOUT LOW 05/14/2017 YUNIER HESS MD, Ot S01.01XA LACERATION WITHOUT FOREIGN BODY OF SCALP 05/14/2017 YUNIER HESS MD, Ot S06.0X0A CONCUSSION WITHOUT LOSS OF CONSCIOUSNESS 05/14/2017 YUNIER HESS MD Ot V80.010A ANIML-RIDR INJURED BY FALL FR HORSE IN N 05/14/2017 YUNIER HESS MD, Ot W22.09XA STRIKING AGAINST OTHER STATIONARY OBJECT 05/14/2017 YUNIER HESS MD, Ot Z87.891 PERSONAL HISTORY OF NICOTINE DEPENDENCE 05/14/2017 YUNIER HESS MD Ot Z90.49 ACQUIRED ABSENCE OF OTHER SPECIFIED PART 07/07/2017 PONCHO ALTMAN MD Ot C44.99 OTHER SPECIFIED MALIGNANT NEOPLASM OF SK 07/07/2017 PONCHO ALTMAN MD Ot K57.30 DVRTCLOS OF LG INT W/O PERFORATION OR AB 07/07/2017 PONCHO ALTMAN MD Ot K76.9 LIVER DISEASE, UNSPECIFIED 07/07/2017 PONCHO ALTMAN MD Ot R91.8 OTHER NONSPECIFIC ABNORMAL FINDING OF JAMES 07/07/2017 PONCHO ALTMAN MD Ot Z98.890 OTHER SPECIFIED POSTPROCEDURAL STATES 07/15/2017 PONCHO ALTMAN MD Ot C44.99 OTHER SPECIFIED MALIGNANT NEOPLASM OF SK 07/15/2017 PONCHO ALTMAN MD Ot K57.30 DVRTCLOS OF LG INT W/O PERFORATION OR AB 07/15/2017 PONCHO ALTMAN MD Ot K76.9 LIVER DISEASE, UNSPECIFIED 07/15/2017 PONCHO ALTMAN MD Ot R91.8 OTHER NONSPECIFIC ABNORMAL FINDING OF JAMES 07/15/2017 PONCHO ALTMAN MD Ot Z98.890 OTHER SPECIFIED POSTPROCEDURAL STATES 05/29/2018 DAVID MORELIA PENNINGTON Ot E78.00 PURE HYPERCHOLESTEROLEMIA, UNSPECIFIED 05/29/2018 DAVID MORELIA PENNINGTON K Ot G43.909 MIGRAINE, UNSP, NOT INTRACTABLE, WITHOUT 05/29/2018 DAVID MARU PENNINGTONA K Ot G47.30 SLEEP APNEA, UNSPECIFIED 05/29/2018 DAVID MARU PENNINGTONA K Ot I10 ESSENTIAL (PRIMARY) HYPERTENSION 05/29/2018 DAVID MORELIA PENNINGTON K Ot J44.9 CHRONIC OBSTRUCTIVE PULMONARY DISEASE, U 05/29/2018 DAVID MORELIA PENNINGTON K Ot K21.9 GASTRO-ESOPHAGEAL REFLUX DISEASE WITHOUT 05/29/2018 DAVID MARU PENNINGTONA Lakhwinder Ot R07.89 OTHER CHEST PAIN 05/29/2018 MORELIA HERNANDEZ DO K Ot Z79.51 COMMISSIONING SPECIALIST (CURRENT) USE OF INHALED STERO 05/29/2018 MORELIA HERNANDEZ DO K Ot Z85.9 PERSONAL HISTORY OF MALIGNANT NEOPLASM, 05/29/2018 MORELIA HERNANDEZ DO Ot Z87.19 PERSONAL HISTORY OF OTHER DISEASES OF TH 05/29/2018 MORELIA HERNANDEZ DO Ot Z87.891 PERSONAL HISTORY OF NICOTINE DEPENDENCE 05/29/2018 MORELIA HERNANDEZ DO Ot Z88.0 ALLERGY STATUS TO PENICILLIN 05/29/2018 MARU HERNANDEZ DOA K Ot Z98.890 OTHER SPECIFIED POSTPROCEDURAL STATES Procedures Code Description Performed By Performed On [facility] Jonah Navarrete 07/14/2012 68635 ROUTINE VENIPUNCTURE 07/21/2012 80767 CMP 07/21/2012 27463 LIPID PANEL 07/21/2012 [id number] GFR CALC (RESULT ONLY) 07/21/2012 Podiatry Krystle Man 08/07/2012 60292 URINE DRUG SCREEN (IN-HOUSE ) 10/11/2012 82499 XRAY KNEE RIGHT 3 VIEWS 06/25/2013 39352 URINE DRUG SCREEN (IN-HOUSE ) 06/25/2013 13791 JOINT INJECTION- LARGE JOINT (SPECIFY MEDCIN DESCRIPTION) 06/30/2013 ORTHOPEDUARDO TRAMMELL 07/25/2013 78586 XRAY RIBS LEFT UNILATERAL 2 OR MORE VIEWS 08/23/2013 54811 XRAY HAND RIGHT MIN 3 VIEWS 10/16/2013 35048 ROUTINE VENIPUNCTURE 01/09/2014 03270 CBC 01/09/2014 [id number] GFR CALC (RESULT ONLY) 01/09/2014 91941 CMP 01/09/2014 79059 LIPID PANEL 01/09/2014 17669 PSA TOTAL 01/09/2014 38904 TSH 01/09/2014 560606 [employer] DRUG SCREEN 01/11/2014 93268 ROUTINE VENIPUNCTURE 03/26/2014 74213 UA W/ CULTURE IF INDICATED 03/26/2014 31042 CBC 03/26/2014 51929 ROUTINE VENIPUNCTURE 04/30/2014 04899 SED/ESR RATE (IN HOUSE) 04/30/2014 79944 URIC ACID 04/30/2014 32693 CRP 04/30/2014 21778 RA FACTOR 05/01/2014 87006 ASO 05/01/2014 ANAANA TONY ANALYZER (SCREEN) 05/01/2014 852979 [employer] DRUG SCREEN 05/17/2014 48018 ROUTINE VENIPUNCTURE 07/04/2014 22000 CBC 07/05/2014 65639 US HEAD (SOFT TISSUE) ULTRASOUND, HEAD 07/10/2014 59536 MRI SOFT TISSUE NECK, W AND W/O CONTRAST 07/24/2014 12139 XRAY FOOT LEFT COMP MIN 3 VIEWS 07/30/2014 846682 [employer] DRUG SCREEN 08/13/2014 03694 ASPIRATE/INJ GANGLION CYST 09/06/2014 79954 XRAY SHOULDER RIGHT COMP 2 VIEWS 10/04/2014 81211 INFLUENZA A & B (IN-HOUSE) 10/04/2014 85443 EMG, ONE LIMB 11/27/2014 Neurology Faye Jama 11/27/2014 63166 MRI SPINE (CERVICAL) W/O CONTRAST 12/17/2014 Results Test Result Range Methicillin resistant Staphylococcus aureus (MRSA) screening culture - 08:07 Methicillin resistant Staphylococcus aureus (MRSA) screening culture NEG NRG Lipid Panel - 05/04/17 12:37 Cholesterol, Total 185 mg/dL 100-199 Triglycerides 130 mg/dL 0-149 HDL Cholesterol 35 mg/dL >39 VLDL Cholesterol Alec 26 mg/dL 5-40 LDL Cholesterol Calc 124 mg/dL 0-99 Complete blood count (CBC) with automated white blood cell (WBC) differential - 07/06/17 14:03 Blood leukocytes automated count (number/volume) 6.5 10*3/uL 4.3-11.0 Blood erythrocytes automated count (number/volume) 4.93 10*6/uL 4.35-5.85 Venous blood hemoglobin measurement (mass/volume) 15.1 g/dL 13.3-17.7 Blood hematocrit (volume fraction) 45 % 40-54 Automated erythrocyte mean corpuscular volume 91 [foz_us] 80-99 Automated erythrocyte mean corpuscular hemoglobin (mass per erythrocyte) 31 pg 25-34 Automated erythrocyte mean corpuscular hemoglobin concentration measurement ( mass/volume) 34 g/dL 32-36 Automated erythrocyte distribution width ratio 12.7 % 10.0-14.5 Automated blood platelet count (count/volume) 219 10*3/uL 130-400 Automated blood platelet mean volume measurement 9.2 [foz_us] 7.4-10.4 Automated blood neutrophils/100 leukocytes 68 % 42-75 Automated blood lymphocytes/100 leukocytes 21 % 12-44 Blood monocytes/100 leukocytes 6 % 0-12 Automated blood eosinophils/100 leukocytes 4 % 0-10 Automated blood basophils/100 leukocytes 1 % 0-10 Blood neutrophils automated count (number/volume) 4.5 10*3 1.8-7.8 Blood lymphocytes automated count (number/volume) 1.4 10*3 1.0-4.0 Blood monocytes automated count (number/volume) 0.4 10*3 0.0-1.0 Automated eosinophil count 0.2 10*3/uL 0.0-0.3 Automated blood basophil count (count/volume) 0.1 10*3/uL 0.0-0.1 Comprehensive metabolic panel - 07/06/17 14:03 Serum or plasma sodium measurement (moles/volume) 135 mmol/L 135-145 Serum or plasma potassium measurement (moles/volume) 4.1 mmol/L 3.6-5.0 Serum or plasma chloride measurement (moles/volume) 104 mmol/L 98-107 Carbon dioxide 23 mmol/L 21-32 Serum or plasma anion gap determination (moles/volume) 8 mmol/L 5-14 Serum or plasma urea nitrogen measurement (mass/volume) 8 mg/dL 7-18 Serum or plasma creatinine measurement (mass/volume) 0.96 mg/dL 0.60-1.30 Serum or plasma urea nitrogen/creatinine mass ratio 8 NRG Serum or plasma creatinine measurement with calculation of estimated glomerular filtration rate > NRG Serum or plasma glucose measurement (mass/volume) 148 mg/dL 70-105 Serum or plasma calcium measurement (mass/volume) 9.1 mg/dL 8.5-10.1 Serum or plasma total bilirubin measurement (mass/volume) 0.6 mg/dL 0.1-1.0 Serum or plasma alkaline phosphatase measurement (enzymatic activity/volume) 73 U/L 40-136 Serum or plasma aspartate aminotransferase measurement (enzymatic activity/ volume) 13 U/L 5-34 Serum or plasma alanine aminotransferase measurement (enzymatic activity/volume ) 20 U/L 0-55 Serum or plasma protein measurement (mass/volume) 7.0 g/dL 6.4-8.2 Serum or plasma albumin measurement (mass/volume) 4.0 g/dL 3.2-4.5 TSH - 12/21/17 17:00 TSH 0.80 mIU/L 0.40-4.50 CRP - 03/15/18 17:53 C-REACTIVE PROTEIN 0.9 mg/L <8.0 Complete blood count (CBC) with automated white blood cell (WBC) differential - 05/26/18 08:30 Blood leukocytes automated count (number/volume) 7.8 10*3/uL 4.3-11.0 Blood erythrocytes automated count (number/volume) 5.23 10*6/uL 4.35-5.85 Venous blood hemoglobin measurement (mass/volume) 16.1 g/dL 13.3-17.7 Blood hematocrit (volume fraction) 47 % 40-54 Automated erythrocyte mean corpuscular volume 89 [foz_us] 80-99 Automated erythrocyte mean corpuscular hemoglobin (mass per erythrocyte) 31 pg 25-34 Automated erythrocyte mean corpuscular hemoglobin concentration measurement ( mass/volume) 35 g/dL 32-36 Automated erythrocyte distribution width ratio 13.4 % 10.0-14.5 Automated blood platelet count (count/volume) 236 10*3/uL 130-400 Automated blood platelet mean volume measurement 9.7 [foz_us] 7.4-10.4 Automated blood neutrophils/100 leukocytes 78 % 42-75 Automated blood lymphocytes/100 leukocytes 13 % 12-44 Blood monocytes/100 leukocytes 7 % 0-12 Automated blood eosinophils/100 leukocytes 2 % 0-10 Automated blood basophils/100 leukocytes 0 % 0-10 Blood neutrophils automated count (number/volume) 6.1 10*3 1.8-7.8 Blood lymphocytes automated count (number/volume) 1.0 10*3 1.0-4.0 Blood monocytes automated count (number/volume) 0.6 10*3 0.0-1.0 Automated eosinophil count 0.1 10*3/uL 0.0-0.3 Automated blood basophil count (count/volume) 0.0 10*3/uL 0.0-0.1 PT panel in platelet poor plasma by coagulation assay - 05/26/18 08:30 Prothrombin time (PT) in platelet poor plasma by coagulation assay 13.3 s 12.2-14.7 INR in platelet poor plasma or blood by coagulation assay 1.0 0.8-1.4 Activated partial thromboplastin time (aPTT) in platelet poor plasma bycoagulation assay - 05/26/18 08:30 Activated partial thromboplastin time (aPTT) in platelet poor plasma bycoagulation assay 26 s 24-35 Comprehensive metabolic panel - 05/26/18 08:30 Serum or plasma sodium measurement (moles/volume) 138 mmol/L 135-145 Serum or plasma potassium measurement (moles/volume) 3.9 mmol/L 3.6-5.0 Serum or plasma chloride measurement (moles/volume) 105 mmol/L 98-107 Carbon dioxide 22 mmol/L 21-32 Serum or plasma anion gap determination (moles/volume) 11 mmol/L 5-14 Serum or plasma urea nitrogen measurement (mass/volume) 11 mg/dL 7-18 Serum or plasma creatinine measurement (mass/volume) 0.94 mg/dL 0.60-1.30 Serum or plasma urea nitrogen/creatinine mass ratio 12 NRG Serum or plasma creatinine measurement with calculation of estimated glomerular filtration rate > NRG Serum or plasma glucose measurement (mass/volume) 102 mg/dL 70-105 Serum or plasma calcium measurement (mass/volume) 9.4 mg/dL 8.5-10.1 Serum or plasma total bilirubin measurement (mass/volume) 0.9 mg/dL 0.1-1.0 Serum or plasma alkaline phosphatase measurement (enzymatic activity/volume) 60 U/L 40-136 Serum or plasma aspartate aminotransferase measurement (enzymatic activity/ volume) 16 U/L 5-34 Serum or plasma alanine aminotransferase measurement (enzymatic activity/volume ) 23 U/L 0-55 Serum or plasma protein measurement (mass/volume) 6.9 g/dL 6.4-8.2 Serum or plasma albumin measurement (mass/volume) 4.3 g/dL 3.2-4.5 CALCIUM CORRECTED 9.2 mg/dL 8.5-10.1 Magnesium - 05/26/18 08:30 Magnesium 2.3 mg/dL 1.8-2.4 Serum or plasma creatine kinase measurement (enzymatic activity/volume) - 05/26 08:30 Serum or plasma creatine kinase measurement (enzymatic activity/volume) 66 U/L 30-200 Serum or plasma creatine kinase MB measurement (enzymatic activity/volume) - 08:30 Serum or plasma creatine kinase MB measurement (enzymatic activity/volume) 4.6 ng/mL <6.6 Serum or plasma troponin i.cardiac measurement (mass/volume) - 05/26/18 08:30 Serum or plasma troponin i.cardiac measurement (mass/volume) < ng/ mL <0.30 Serum or plasma lithium measurement (moles/volume) - 05/26/18 08:30 BNP level 61.4 pg/mL <100.0 Myoglobin, serum - 05/26/18 08:30 Myoglobin, serum 42.9 ng/mL 10.0-92.0 Serum or plasma amylase measurement (enzymatic activity/volume) - 05/26/18 08: 30 Serum or plasma amylase measurement (enzymatic activity/volume) 65 U /L 25-125 Lipase - 05/26/18 08:30 Lipase 7 U/L 8-78 Complete blood count (CBC) with automated white blood cell (WBC) differential - 12/19/18 15:25 Blood leukocytes automated count (number/volume) 8.6 10*3/uL 4.3-11.0 Blood erythrocytes automated count (number/volume) 5.24 10*6/uL 4.35-5.85 Venous blood hemoglobin measurement (mass/volume) 16.1 g/dL 13.3-17.7 Blood hematocrit (volume fraction) 47 % 40-54 Automated erythrocyte mean corpuscular volume 89 [foz_us] 80-99 Automated erythrocyte mean corpuscular hemoglobin (mass per erythrocyte) 31 pg 25-34 Automated erythrocyte mean corpuscular hemoglobin concentration measurement ( mass/volume) 34 g/dL 32-36 Automated erythrocyte distribution width ratio 13.0 % 10.0-14.5 Automated blood platelet count (count/volume) 246 10*3/uL 130-400 Automated blood platelet mean volume measurement 9.1 [foz_us] 7.4-10.4 Automated blood neutrophils/100 leukocytes 79 % 42-75 Automated blood lymphocytes/100 leukocytes 13 % 12-44 Blood monocytes/100 leukocytes 5 % 0-12 Automated blood eosinophils/100 leukocytes 3 % 0-10 Automated blood basophils/100 leukocytes 1 % 0-10 Blood neutrophils automated count (number/volume) 6.8 10*3 1.8-7.8 Blood lymphocytes automated count (number/volume) 1.1 10*3 1.0-4.0 Blood monocytes automated count (number/volume) 0.4 10*3 0.0-1.0 Automated eosinophil count 0.2 10*3/uL 0.0-0.3 Automated blood basophil count (count/volume) 0.1 10*3/uL 0.0-0.1 Comprehensive metabolic panel - 12/19/18 15:25 Serum or plasma sodium measurement (moles/volume) 138 mmol/L 135-145 Serum or plasma potassium measurement (moles/volume) 4.7 mmol/L 3.6-5.0 Serum or plasma chloride measurement (moles/volume) 105 mmol/L 98-107 Carbon dioxide 21 mmol/L 21-32 Serum or plasma anion gap determination (moles/volume) 12 mmol/L 5-14 Serum or plasma urea nitrogen measurement (mass/volume) 13 mg/dL 7-18 Serum or plasma creatinine measurement (mass/volume) 1.91 mg/dL 0.60-1.30 Serum or plasma urea nitrogen/creatinine mass ratio 7 NRG Serum or plasma creatinine measurement with calculation of estimated glomerular filtration rate 35 NRG Serum or plasma glucose measurement (mass/volume) 173 mg/dL 70-105 Serum or plasma calcium measurement (mass/volume) 9.8 mg/dL 8.5-10.1 Serum or plasma total bilirubin measurement (mass/volume) 0.4 mg/dL 0.1-1.0 Serum or plasma alkaline phosphatase measurement (enzymatic activity/volume) 69 U/L 40-136 Serum or plasma aspartate aminotransferase measurement (enzymatic activity/ volume) 17 U/L 5-34 Serum or plasma alanine aminotransferase measurement (enzymatic activity/volume ) 17 U/L 0-55 Serum or plasma protein measurement (mass/volume) 7.5 g/dL 6.4-8.2 Serum or plasma albumin measurement (mass/volume) 4.5 g/dL 3.2-4.5 CALCIUM CORRECTED 9.4 mg/dL 8.5-10.1 Encounters ACCT No. Visit Date/Time Discharge Status Pt. Type Provider Facility Loc./Unit Complaint [id number] 11/27/2014 00:00:00 11/27/2014 23:59:59 CLS Outpatient LASHAY BLACK APRN S [id number] 10/04/2014 08:27:00 10/04/2014 23:59:59 CLS Outpatient MAGDALENOL NAZRAJIV Kuldeep [id number] 09/06/2014 09:42:00 09/06/2014 23:59:59 CLS Outpatient KRYSTLE MAN DPM [id number] 08/13/2014 09:10:00 08/13/2014 23:59:59 CLS Outpatient BOB BLACK APRNA S [id number] 07/30/2014 08:38:00 07/30/2014 23:59:59 CLS Outpatient BOB BLACK APRNA S [id number] 07/04/2014 17:44:00 07/04/2014 23:59:59 CLS Outpatient BOB BLACK APRNA S [id number] 05/15/2014 09:11:00 05/15/2014 23:59:59 CLS Outpatient BOB BLACK APRNA S [id number] 04/30/2014 08:35:00 04/30/2014 23:59:59 CLS Outpatient BOB BLACK APRNA S [id number] 03/26/2014 11:24:00 03/26/2014 23:59:59 CLS Outpatient ARNAV BLACK APRNNDA S [id number] 02/22/2014 13:14:00 02/22/2014 23:59:59 CLS Outpatient ESVIN LINDA MD [id number] 01/09/2014 08:29:00 01/09/2014 23:59:59 CLS Outpatient BOB BLACK APRNA S [id number] 10/16/2013 10:54:00 10/16/2013 23:59:59 CLS Outpatient BOB BLACK APRNA S [id number] 08/23/2013 15:46:00 08/23/2013 23:59:59 CLS Outpatient PARADISE LOPEZ DO [id number] 07/25/2013 15:57:00 07/25/2013 23:59:59 CLS Outpatient PARADISE LOPEZ DO [id number] 06/29/2013 13:19:00 06/29/2013 23:59:59 CLS Outpatient PARADISE LOPEZ DO [id number] 10/11/2012 14:34:00 10/11/2012 23:59:59 CLS Outpatient LASHAY BLACK APRN [id number] 08/07/2012 09:13:00 08/07/2012 23:59:59 CLS Outpatient PARADISE LOPEZ DO [id number] 07/11/2012 15:52:00 07/11/2012 23:59:59 CLS Outpatient PARADISE LOPEZ DO [id number] 02/23/2013 10:20:00 Document Registration [id number] 02/17/2015 10:52:42 ACT Document Registration [id number] 05/26/2018 08:12:00 05/26/2018 10:59:00 DIS Outpatient MORELIA HERNANDEZ DO Lakhw[facility] ER CP,SOB [id number] 07/06/2017 13:57:00 07/06/2017 23:59:59 CLS Outpatient PONCHO ALTMAN MD [facility] RAD ECCRINE CARCINOMA OF SKIN [id number] 04/27/2017 16:28:00 04/27/2017 18:45:00 DIS Emergency YUNIER HESS MD [facility] ER HEAD LACERATION [id number] 03/04/2017 07:40:00 03/04/2017 12:48:00 DIS Outpatient JONAH NAVARRETE MD [facility] SDC LEFT FOOT PALPABLE LUMP [id number] 02/28/2017 05:34:00 02/28/2017 11:19:00 DIS Outpatient JONAH NAVARRETE MD [facility] PREOP LEFT FOOT PALPABLE LUMP [id number] 02/02/2017 13:36:00 02/02/2017 23:59:59 CLS Outpatient LASHAY BLACK [facility] RAD Q27.9 VENOUS VASCULAR MALFORMATIONS [id number] 09/07/2016 10:04:00 09/07/2016 12:07:00 DIS Outpatient ESTEVAN KINGSLEY DO [facility] SDC DIARRHEA [id number] 09/02/2016 05:49:00 09/02/2016 13:48:00 DIS Outpatient ESTEVAN KINGSLEY DO Susanne [facility] PREOP DIARRHEA [id number] 06/09/2016 13:57:00 06/09/2016 23:59:59 CLS Outpatient DIMA FOSS APRN [facility] RT ASTHMA,SOB,DYSPNEA [id number] 06/09/2016 12:50:00 06/09/2016 15:38:00 DIS Outpatient DIMA FOSS APRN [facility] SLEEP SOB,ASTHMA, OBSERVED APNEA,SNORING,EDS [id number] 03/15/2016 12:54:00 03/15/2016 23:59:59 CLS Outpatient LASHAY BLACK [facility] LAB FEVER [id number] 03/10/2016 08:34:00 03/10/2016 12:09:00 DIS Emergency KODY JACKSON DO L [facility] ER VOMITING/DIARRHEA [id number] 02/02/2016 13:29:00 02/02/2016 16:25:00 DIS Emergency MORELIA HERNANDEZ DO K [facility] ER DEHYDRATION;LIGHT HEADED [id number] 11/20/2015 22:37:00 11/21/2015 15:35:00 DIS Inpatient JERSON MORGAN MD [facility] 4TH INTRACTABLE H/A, N/V/D, ABD PAIN [id number] 11/20/2015 11:40:00 11/20/2015 13:56:00 DIS Emergency ERIC LOPEZ APRN [facility] ER HEADACHE [id number] 11/18/2015 10:19:00 11/18/2015 23:59:59 CLS Outpatient MIRIAN WELLER FACC, HAZEL BENNETT CCDS [facility] CARD CHEST PAIN [id number] 08/25/2015 13:20:00 08/25/2015 23:59:59 CLS Outpatient ARNAV BLACKNDA [facility] [employer] RAD CERVICALGIA [id number] 01/23/2015 10:30:00 02/14/2015 08:59:00 DIS Outpatient ARNAV BLACKNDA [facility] REHAB CERVICALGIA; NEURALGIA AND RADICULITIS [id number] 12/17/2014 15:05:00 12/17/2014 23:59:59 CLS Outpatient ARNAV BLACKNDA [facility] [employer] RAD CERVICALGIA [id number] 07/23/2014 16:27:00 07/23/2014 23:59:59 CLS Outpatient ARNAV BLACKNDA [facility] [employer] RAD MASS BEHIND LT EAR [id number] 07/22/2014 10:13:00 07/22/2014 23:59:59 CLS Outpatient ARNAV BLACKNDA [facility] [employer] RAD [id number] 07/10/2014 10:01:00 07/10/2014 23:59:59 CLS Outpatient ARNAV BLACKNDA [facility] [employer] RAD [id number] 06/26/2014 11:47:00 06/26/2014 13:21:00 DIS Emergency DANGELO JENSEN MD [facility] ER [id number] 12/19/2018 18:05:00 ACT Inpatient ESTEVAN KINGSLEY DO D [facility] ICU SMALL PNEUMOTHORAX [id number] 12/18/2015 07:22:00 Document Registration [id number] 10/29/2012 14:45:00 Document Registration [id number] 09/28/2010 05:41:00 Document Registration [id number] 09/24/2010 10:57:00 Document Registration [id number] 09/23/2010 07:56:00 Document Registration [id number] 10/19/2018 14:20:00 10/19/2018 23:59:59 CLS Outpatient LASHAY BLACK APRN [facility] [id number] 03/15/2018 16:40:00 Document Registration [id number] 12/21/2017 16:00:00 Document Registration [id number] 05/05/2017 10:10:00 Document Registration
[2018-12-19] MEDS: CATHETER FLUSH 10 ML SYR IV SCH (20:10)
[2018-12-19] MEDS ORDERED: CATHETER FLUSH 10 ML SYR IV PRN (20:15)
--- NOTE | 2018-12-19 20:35 | NUR ---
JOSE HYMAN JR admitted to room CU7-1, with an admitting diagnosis of Small pneumothorax and fractured ribs, on 12/19/18 from ED via stretcher, accompanied by staff.JOSE HYMAN JR introduced to surroundings, call light, bed controls, phone, TV, temperature control, lights, meal times, smoking policy, visitor policy, side rail policy, bathrooms and showers. Patient Rights given to patient in the handbook. JOSE HYMAN JR verbalizes understanding that [facility] is not responsible for the loss or damage to any personal effects or valuables that are kept in the patients possession during their hospitalization. The following Patient Care Plans were discussed with the patient: Discharge Planning, pain,activity, and Resp distress. JOSE HYMAN JR verbalizes understanding of Interdisciplinary Patient Education. Patient and/or family were informed about the Rapid Response Team and its purpose.
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
[2018-12-20] VITALS (17 sets, daily range): BP systolic 124–160; BP diastolic 83–118
--- NOTE | 2018-12-20 | NUR ---
NPO at midnight per order.
[2018-12-20] MEDS: HYDROmorphone 2 MG/ML VIAL (DILAUDID) IV PRN ×6 (00:14→18:56)
--- NOTE | 2018-12-20 00:58 | NUR ---
Call to E ICU at this time to update on continued HTN. Patient takes home bp medication but did miss tonight dose.
[2018-12-20] MEDS ORDERED: PROPRANOLOL 20 MG (INDERAL) TABLET ONE (01:20)
[2018-12-20] MEDS ORDERED: PROPRANOLOL 20 MG (INDERAL) TABLET PO ONE (01:30)
[2018-12-20 03:53] LABS: BASOPHILS % (AUTO) 0 % (0-10); EOSINOPHILS # (AUTO) 0.1 10^3/uL (0.0-0.3); EOSINOPHILS % (AUTO) 2 % (0-10); HEMATOCRIT 44 % (40-54); HEMOGLOBIN 15.1 G/DL (13.3-17.7); LYMPHOCYTES # (AUTO) 1.3 X 10^3 (1.0-4.0); LYMPHOCYTES % (AUTO) 14 % (12-44); MEAN CORPUSCULAR HEMOGLOBIN 31 PG (25-34); MEAN CORPUSCULAR HGB CONC 34 G/DL (32-36); MEAN CORPUSCULAR VOLUME 91 FL (80-99); MEAN PLATELET VOLUME 9.3 FL (7.4-10.4); MONOCYTES % (AUTO) 10 % (0-12); NEUTROPHILS % (AUTO) 74 % (42-75); PLATELET COUNT 224 10^3/uL (130-400); RED CELL DISTRIBUTION WIDTH 13.4 % (10.0-14.5); WHITE BLOOD COUNT 9.4 10^3/uL (4.3-11.0)
[2018-12-20] MEDS: CATHETER FLUSH 10 ML SYR IV SCH ×3 (03:56→20:50)
[2018-12-20 04:14] LABS: CALCIUM 9.1 MG/DL (8.5-10.1); CREATININE SERUM 1.38 MG/DL (0.60-1.30); MAGNESIUM 2.2 MG/DL (1.8-2.4); PHOSPHORUS 3.5 MG/DL (2.3-4.7); POTASSIUM 4.2 MMOL/L (3.6-5.0)
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
[2018-12-20] MEDS ORDERED: KCL 20 MEQ TAB (K-DUR) PO SCH (06:00)
[2018-12-20] MEDS ORDERED: POTASSIUM CL 10MEQ/50ML IVPB 50 ML IV SCH (06:00)
[2018-12-20] MEDS ORDERED: MAGNESIUM 1 GM/100 ML IVPB 100 ML IV SCH (06:00)
[2018-12-20] MEDS ORDERED: ONDANSETRON 4 MG/2 ML (SDV) Z0FRAN IVP PRN (07:45)
--- NOTE | 2018-12-20 08:08 | Diagnostic Imaging Report ---
Indication: Followup pneumothorax. Comparison with previous CT chest again shows fractured ribs involving the right seventh and eighth ribs. Right basilar atelectasis with small pleural effusion. The pneumothorax noted on the CT chest is not appreciated on the portable chest x-ray. No definite mediastinal adenopathy. Heart is not enlarged. Upper lungs are clear. IMPRESSION: 1. Known rib fractures from previous CT chest and pneumothorax. There has been no evidence of increasing pneumothorax. No pleural effusion has developed. Dictated by: Dictated on workstation # [id number]
--- NOTE | 2018-12-20 08:53 | Diagnostic Imaging Report ---
INDICATION: Followup pneumothorax. FINDINGS: The portable chest shows mild bibasilar atelectasis. No definite pneumothorax is seen. No rib fracture is identified. The heart is not enlarged. IMPRESSION: 1. The right rib fractures and minimal pneumothorax noted on the previous CT scan of the chest on 12/19/2018 are not visualized on the current portable chest. 2. Bibasilar atelectasis is present. Dictated by: Dictated on workstation # [id number]
[2018-12-20] MEDS: RT-ALBUTEROL/IPRATROPIUM 3 ML (DUONEB) VIAL INH SCH ×3 (10:13→20:58)
[2018-12-20] MEDS ORDERED: HYDROcodone/APAP 7.5 MG/325 MG (LORTAB, LORCET PLUS) TABLET PO PRN (10:45)
[2018-12-20] MEDS: PROPRANOLOL 20 MG (INDERAL) TABLET PO SCH ×2 (10:52→20:49)
[2018-12-20] MEDS: LIDOCAINE 4% (SALONPAS) PATCH TOP SCH (10:52)
--- NOTE | 2018-12-20 11:05 | NUR ---
Pastoral care visit.
[2018-12-20] MEDS ORDERED: AMLO10TA7 PO (11:11)
[2018-12-20] MEDS ORDERED: DONE5TAB30 PO (11:11)
[2018-12-20] MEDS ORDERED: TIOT18CA2 IH (11:11)
[2018-12-20] MEDS ORDERED: PROP160C2 PO (11:11)
[2018-12-20] MEDS ORDERED: PANT40TA2 PO (11:11)
[2018-12-20] MEDS ORDERED: FLUT16SP22 NS (11:11)
[2018-12-20] MEDS ORDERED: TAMS0.4C98 PO (11:11)
[2018-12-20] MEDS ORDERED: FLUT1DIS26 IH (11:11)
[2018-12-20] MEDS ORDERED: ASPI-999 PO (11:11)
[2018-12-20] MEDS ORDERED: TRAZ-189 PO (11:11)
[2018-12-20] MEDS ORDERED: CYCL10TA9 PO (11:11)
[2018-12-20] MEDS ORDERED: DICY20TA10 PO (11:11)
[2018-12-20] MEDS ORDERED: RT-ALBUINH IH (11:11)
[2018-12-20] MEDS ORDERED: GLUC-144 PO (11:18)
[2018-12-20] MEDS ORDERED: SAW/1TAB2 PO (11:18)
--- NOTE | 2018-12-20 11:27 | NUR ---
PATIENT HAD HIS MEDICATION BOTTLES IN THE ROOM WITH HIM. WE WENT OVER THOSE BOTTLES AND HE VERIFIED HOW HE TAKES THEM. BOTTLES HE HAD FROM REPOSITORY AT [facility]: 10-31-18 PROPRANOLOL ER 160MG CAP DAILY #90 BOTTLES HE HAD FROM [facility]: 12-14-18 FLOMAX 0.4MG AFTER EVENING MEAL #30 (TAKES AT HS) 12-06-18 PROTONIX 40MG DAILY #90 (TAKES AT HS) 12-14-18 TRAZODONE 50MG 1-2 HS PRN #60 (TAKES 2 HS SCHEDULED) 12-04-18 FLEXERIL 10MG TID PRN #90 12-04-18 DONEPEZIL 5MG HS #30 12-04-18 AMLODIPINE 10MG DAILY #90 10-16-18 DICYCLOMINE 20MG QID #120 (TAKES 2-4 TIMES DAILY PRN) HE HAS A BOTTLE OF ZOLOFT FILLED 04-04-17 BUT STATES HE NO LONGER TAKES IT AND HE IS NOT SURE WHY IT IS WITH HIS OTHER PILL BOTTLES. HE ALSO STATES HE USES HYDROCODONE PRN, [facility] FILLED HYDROCODONE 7.5-325MG TID PRN FOR A 28 DAY SUPPLY ON 11-22-18 - HE DID NOT HAVE THIS BOTTLE WITH HIM. HE ALSO HAD ADVAIR 250/50 HE STATES HE USES BID HOWEVER [facility] HAS NOT FILLED IT SINCE 11-08-18. HE ALSO HAD A PROAIR INHALER HE STATES HE USES NEEDED, [facility] HAS NOT FILLED THAT RECENTLY. HE REPORTS HE USES SPIRIVA BUT DID NOT BRING IT WITH HIM, [facility] LAST FILLED THAT 10-28-18. HE ALSO REPORTS HE USES FLONASE NASAL SPRAY. OTC MEDS: ASPIRIN 81MG CHEW DAILY OSTEO BI FLEX BID PROSTATE HEALTH DAILY WHEN I ASKED HIM ABOUT MEDICATIONS WE HAD ON FILE FROM PREVIOUS VISITS THAT HE DOES NOT HAVE IN HIS BAG HE STATED HE DOES TAKE THE FOLLOWING HOWEVER THEY HAVE NOT BEEN FILLED IN QUITE SOME TIME SO I DID NOT INCLUDE THEM ON THE MED REC AT THIS TIME: AUGUST- CARAFATE 1GM QID #120 FEBRUARY 2018- ZOFRAN 8MG TID #20 IMITREX- NOT ON FILE AT [facility]
--- NOTE | 2018-12-20 12:13 | Diagnostic Imaging Report ---
INDICATION: Trauma with hydronephrosis. There is residual contrast media within the urinary bladder. No contrast extravasation. There is no appreciable retention of contrast within the previously noted dilated left renal collecting system. No bowel obstruction. Radiopacities compatible with a lower abdominal wall hernia repair noted. There is old deformities to the left pubic bone chronic. IMPRESSION: Residual contrast in the bladder without extravasation. No identifiable residual renal cortical or collecting system contrast media. Dictated by: Dictated on workstation # [id number]
--- NOTE | 2018-12-20 12:40 | CONSULTATION REPORT ---
DATE OF SERVICE: 12/20/2018 ATTENDING PHYSICIAN: Dr. Borges. SUMMARY: A 68-year-old white man who was kicked by a cow, sustained fracture of 6 and 7 ribs on the right side, small pneumothorax on that side. Incidental finding on his CAT scan was significant hydronephrosis with caliectasis on the left side. This was not present in the CAT scan done in 2017. He did not have any contrast excreted on the delayed film on that side. There was no calcification visualized and no filling defect visualized. The patient has no symptoms related to this. Review of his records show that there is a creatinine of 1.38 with an estimated GFR of 52. As of today, he is feeling better. He is ambulating. He is breathing well. He has no flank pain, no tenderness in the flank on the left side. He has some symptoms of prostatism in the form of frequency, nocturia and slowing of the stream. PHYSICAL EXAMINATION: RECTAL: Exam deferred at this point. IMPRESSION: 1. Left hydronephrosis, etiology unknown at this point. 2. BPH with prostatism. PLAN: Once he recover from that pneumothorax and actually goes back to normal, we will plan cystoscopy, left retrograde urogram, possible ureteroscopy. We do not want to give him any anesthesia in order not to increase the pneumothorax, so we do make it worse. Recommend to follow his creatinine to make sure it stays stable. We will order one tomorrow. We will see him back in the office sometime next week. Work him up as well for his BPH and prostatism. The plan was fully explained to the patient and discussed with Dr. Borges and Dr. Oliveira. Job ID: [id number] DocumentID: [id number] Dictated Date: 12/20/2018 11:34:20 [employer] Date: 12/20/2018 12:39:23 Dictated By: CHRISTA DAMICO MD [facility]
[2018-12-20] MEDS ORDERED: CYCLOBENZAPRINE 10 MG (FLEXERIL) TAB PO PRN (19:30)
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
[2018-12-20] MEDS ORDERED: DONEPEZIL 5 MG (ARICEPT) TAB PO SCH (21:00)
[2018-12-20] MEDS ORDERED: PANTOPRAZOLE 40 MG (PROTONIX) TAB PO SCH (21:00)
[2018-12-20] MEDS ORDERED: TAMSULOSIN 0.4 MG (FLOMAX) CAP PO SCH (21:00)
[2018-12-21 00:10] VITALS: BP 127/60
[2018-12-21] MEDS: HYDROmorphone 2 MG/ML VIAL (DILAUDID) IV PRN ×3 (04:12→12:30)
[2018-12-21 04:34] LABS: BASOPHILS # (AUTO) 0.1 10^3/uL (0.0-0.1); BASOPHILS % (AUTO) 1 % (0-10); EOSINOPHILS # (AUTO) 0.1 10^3/uL (0.0-0.3); EOSINOPHILS % (AUTO) 2 % (0-10); HEMATOCRIT 46 % (40-54); HEMOGLOBIN 15.3 G/DL (13.3-17.7); LYMPHOCYTES # (AUTO) 0.9 X 10^3 (1.0-4.0); LYMPHOCYTES % (AUTO) 11 % (12-44); MEAN CORPUSCULAR HEMOGLOBIN 30 PG (25-34); MEAN CORPUSCULAR HGB CONC 33 G/DL (32-36); MEAN CORPUSCULAR VOLUME 92 FL (80-99); MEAN PLATELET VOLUME 9.4 FL (7.4-10.4); MONOCYTES # (AUTO) 0.5 X 10^3 (0.0-1.0); MONOCYTES % (AUTO) 6 % (0-12); NEUTROPHILS # (AUTO) 6.5 X 10^3 (1.8-7.8); NEUTROPHILS % (AUTO) 80 % (42-75); PLATELET COUNT 204 10^3/uL (130-400); WHITE BLOOD COUNT 8.1 10^3/uL (4.3-11.0)
[2018-12-21 04:44] VITALS: BP 150/85
[2018-12-21 05:02] LABS: BILIRUBIN,TOTAL 0.7 MG/DL (0.1-1.0); CALCIUM 9.4 MG/DL (8.5-10.1); CREATININE SERUM 1.31 MG/DL (0.60-1.30); POTASSIUM 4.2 MMOL/L (3.6-5.0); TOTAL PROTEIN 6.7 GM/DL (6.4-8.2)
[2018-12-21] MEDS: CATHETER FLUSH 10 ML SYR IV SCH (06:45)
[2018-12-21 08:00] VITALS: BP 140/87
--- NOTE | 2018-12-21 08:41 | Pulmonary Progress Note ---
Subjective Time Seen by a Provider: 08:39 Subjective/Events-last exam NO complications noted. PT wants to go home. Sepsis Event Evaluation Height, Weight, BMI Height: 5'8.00" Weight: 168lbs. 11.0oz. 76.637971di; 25.6 BMI Method:Stated Exam Exam Vital Signs Date Time Temp Pulse Resp B/P (MAP) Pulse Ox O2 Delivery O2 Flow Rate FiO2 12/21/18 04:44 98.4 88 18 150/85 (106) 93 Room Air 12/21/18 00:10 98.2 70 18 127/60 (82) 92 Room Air 12/20/18 21:00 92 Room Air 12/20/18 21:00 Room Air 12/20/18 20:30 99.4 77 18 141/89 (106) 94 Room Air 12/20/18 16:09 92 Room Air 12/20/18 16:00 71 153/100 (117) Room Air 12/20/18 16:00 97 Nasal Cannula 2.00 12/20/18 15:00 75 154/118 (130) Room Air 12/20/18 14:41 76 125/83 (97) 95 Room Air 12/20/18 13:41 97 Nasal Cannula 2.00 12/20/18 13:00 66 12/20/18 13:00 67 134/89 (104) 94 Room Air 12/20/18 12:00 66 136/101 (113) 92 Room Air 12/20/18 12:00 97 Nasal Cannula 2.00 12/20/18 11:00 74 127/93 (104) 94 Room Air 12/20/18 10:41 77 127/93 (104) 94 Room Air 12/20/18 10:14 98 Room Air I & O 12/21/18 07:00 Intake Total 1070 ml Output Total 500 ml Balance 570 ml Height & Weight Height: 5'8.00" Weight: 168lbs. 11.0oz. 76.886352ff; 25.6 BMI Method:Stated General Appearance: No Apparent Distress, WD/WN HEENT: PERRL/EOMI, Normal ENT Inspection Neck: Full Range of Motion, Normal Inspection, Non Tender, Supple Respiratory: Lungs Clear, No Accessory Muscle Use, No Respiratory Distress ( right side tenderness lower rib cage about same as yesterday) Cardiovascular: Regular Rate, Rhythm, Normal Peripheral Pulses Capillary Refill: Less Than 3 Seconds Gastrointestinal: normal bowel sounds, non tender, soft Extremity: Normal Capillary Refill, Normal Inspection, Normal Range of Motion, Non Tender, No Calf Tenderness Neurologic/Psychiatric: Alert, Oriented x3, No Motor/Sensory Deficits, Normal 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 I will f/u with him next week and repeat CXR. COPD hx -Pt has home oxygen -SVNS, advair Rib fractures 7 & 8 -Pain control -Add Lidoderm patch Atelectasis -IS Renal failure- probably chronic -Monitor RICK JUAREZ DO Dec 21, 2018 08:41
[2018-12-21] MEDS: PROPRANOLOL 20 MG (INDERAL) TABLET PO SCH (08:49)
[2018-12-21] MEDS: LIDOCAINE 4% (SALONPAS) PATCH TOP SCH ×3 (08:49→12:30)
[2018-12-21] MEDS ORDERED: ASPIRIN 81 MG CHEW (CHILDREN'S ASA) PO SCH (09:00)
[2018-12-21] MEDS ORDERED: PROPRANOLOL HCL 160 MG PO SCH (09:00)
[2018-12-21] MEDS: RT-ALBUTEROL/IPRATROPIUM 3 ML (DUONEB) VIAL INH SCH (09:00)
[2018-12-21] MEDS ORDERED: amLODIPine 10 MG (NORVASC) TAB PO SCH (09:00)
--- NOTE | 2018-12-21 10:01 | Diagnostic Imaging Report ---
Indication: Dyspnea. Comparison: 12/20/2018. Findings: Bibasilar linear opacities have improved but persist. Potential small left pleural effusion is similar. No pneumothorax. Stable cardiomediastinal silhouette. Impression: Improving but persistent basilar subsegmental atelectasis. No adverse development. Dictated by: Dictated on workstation # [id number]
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
--- NOTE | 2018-12-21 10:59 | Discharge Inst-Simple/Standard ---
Discharge Inst-Standard Patient Instructions/Follow Up Plan of Care/Instructions/FU: Dr. Azar Tuesday or Tuesday. Dr. Kingsley 1-[address] Garza 1-2 weeks. Activity as Tolerated: No Discharge Diet: Regular Diet Other Inst to Patient Follow up Appt: Make appointments Jony Arteaga Bailey Instructions: No lifting greater than 10 pounds. No strenuous activity. May shower Use incentive spirometer at home as directed. No Smoking Symptoms to Report: Appetite Changes, Extremity Discoloration, Numbness/Tingling, Swelling Increased , Bleeding Excessive, Eyesight Changes, Pain Increased, Urine Color Change, Constipation(Persistent), Fever over 101 degree F, Pain/Pressure in chest, Urinating Difficulty, Cough Up/Vomit Blood, Heart Beat Irreg/Pounding, Pain/ Pressure in jaw, Vaginal Bleeding Increase, Cramps in feet or legs, Lightheadedness, Pain/Pressure in shoulder, Diarrhea(Persistent), Memory Changes Suddenly, Questions/Concerns, Weight gain consecutive days, Dizziness/ Fainting, Nausea/Vomiting, Shortness of Breath, Weight gain over 2 pounds If questions or concerns contact your physician Or seek help at emergency department. ESTEVAN KINGSLEY DO Dec 21, 2018 10:59
--- NOTE | 2018-12-21 11:46 | Progress Note-Urology ---
Progress Note-Urology Progress Notes/Assess & Plan Progress/Assessment & Plan DOING BETTER. CREATININE 1.31. KUB NO RESIDUAL CONTRAST IN KIDNEYS Final Diagnosis LT HYDRONEPHROSIS CHRISTA DAMICO MD Dec 21, 2018 11:46
--- NOTE | 2018-12-21 13:50 | NUR ---
JOSE HYMAN JR demonstrates understanding of discharge instructions and accurately returns instructions upon questioning. Copy of Post-Discharge Instructions and Medication Discharge Instructions given to patient . JOSE HYMAN JR is able to manage continuing needs after discharge. Patients belongings returned to patient. Skin dry and intact; no breakdown noted. Patient discharged from [facility] on 12/21/18 at 1350. JOSE HYMAN JR left floor ambulatory, accompanied by staff and .
[2018-12-21] MEDS ORDERED: RT-ADVAIR HFA 115/21 MCG PER PUFF IH SCH (20:00)
== END 2018-12-21 10:56 | disposition home or self-care (01) ==
LOC: EDUNIT# 15:18 → ER 15:19 → UNDOADMOB 18:05 → ICU 18:05 → 4TH 12-20 17:34 → ICU 12-20 17:34 → UNDODISOB 12-21 13:50
PROVIDERS: ADMIT Surgery; ATTEND Surgery
DX: S22.41XA Multiple fractures of ribs, right side, initial encounter for closed fracture (principal); S27.0XXA Traumatic pneumothorax, initial encounter; J98.2 Interstitial emphysema; J44.9 Chronic obstructive pulmonary disease, unspecified; J98.11 Atelectasis; N19 Unspecified kidney failure; N40.1 Benign prostatic hyperplasia with lower urinary tract symptoms; N13.30 Unspecified hydronephrosis; R35.1 Nocturia; R35.0 Frequency of micturition; N13.5 Crossing vessel and stricture of ureter without hydronephrosis; Z79.899 Other long term (current) drug therapy; Z88.0 Allergy status to penicillin; Z87.891 Personal history of nicotine dependence; G47.30 Sleep apnea, unspecified; E78.00 Pure hypercholesterolemia, unspecified; I10 Essential (primary) hypertension; K21.9 Gastro-esophageal reflux disease without esophagitis; M19.91 Primary osteoarthritis, unspecified site; M79.7 Fibromyalgia; W64.XXXA Exposure to other animate mechanical forces, initial encounter
CPT/HCPCS: 36415; 71045; 71260; 73030; 74018; 74177; 80048; 80053; 83735; 84100; 85025; 87081; 94640; 94760; 96374; 96375; 96376; G0378

== ENCOUNTER → 2018-12-27 | Outpatient (CLI) | payer OTHER ==
[~2018-12-27] MED LIST changes: +AMLO10TA7 PO; +ASPI-999 PO; +DONE5TAB30 PO; +GLUC-144 PO; +PROP160C2 PO; +RT-ALBUINH IH; +SAW/1TAB2 PO; +TAMS0.4C98 PO; +TRAZ-189 PO
--- NOTE | 2018-12-27 16:07 | Diagnostic Imaging Report ---
INDICATION: Shortness of breath. EXAMINATION: PA and lateral chest. FINDINGS: The heart size and pulmonary vascularity are normal. The lungs are clear. There are no effusions or pneumothoraces. IMPRESSION: Negative chest. Dictated by: Dictated on workstation # [id number]
== END ==
LOC: RAD 14:33
PROVIDERS: ATTEND Nurse Practitioner Family
DX: J44.9 Chronic obstructive pulmonary disease, unspecified (principal); G47.33 Obstructive sleep apnea (adult) (pediatric); S22.49XD Multiple fractures of ribs, unspecified side, subsequent encounter for fracture with routine healing
CPT/HCPCS: 71046

== ENCOUNTER 2018-12-29 05:49 | Outpatient (CLI) | payer OTHER ==
[~2018-12-29] VITALS: Ht 172.7 cm; Wt 76.5 kg
== END 2018-12-29 11:35 | disposition home or self-care (01) ==
LOC: PREOP 05:49
PROVIDERS: ATTEND Urology
DX: Z01.818 Encounter for other preprocedural examination (principal)

== ENCOUNTER 2019-01-02 05:51 | Day surgery (SDC) | payer OTHER ==
[~2019-01-02] VITALS: Ht 172.7 cm; Wt 76.5 kg
--- OUTSIDE RECORDS SUMMARY | 2019-01-02 05:56 | XMS REPORT | Clinical Summary ---
Author Author [facility] Organization [facility] Address Unknown Phone Unavailable Care Team Providers Care Shirt Ironer Name Role Phone Shaina Fabian WATER PUMPER PCP Source Comments Some departments are not documenting in the electronic medical record. 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 [...] be done, he can get them at [facility] since they have some sort of arrangement [...] have been able to get lab/imaging done [facility] [address] somehow and can get whatever we need through that hospital. So Ирина, our CNC, will arrange for this to be completed. We will also get routine labs as well. Once the imaging is available for review, I plan on discussing his case at the [facility]. RTC planned in 2 weeks after completion [...] (1 of 2 - PCV13) INFLUENZA VACCINE 04/19/2019 07/23/2008 Results Not on filefrom Last 3 Months Advance Directives Patient has advance care planning documents on file. For more information, please contact: [address] [place] [address]
--- OUTSIDE RECORDS SUMMARY | 2019-01-02 05:57 | XMS REPORT ---
Author Author Migration, Doctor Organization [facility] Address Unknown Phone Unavailable Care Team Providers Care Home Care Associate Name Role Phone Migration, Doctor Unavailable Unavailable PROBLEMS Type Condition ICD9-CM Code WCB55-CS Code Onset Dates Condition Status SNOMED Code Problem Decreased renal function N28.9 Active 24047483 Problem Hypertension I10 Active 47910249 Problem Unspecified asthma, uncomplicated J45.909 Active 999952860 Problem Cervicalgia M54.2 Active 77433410 Problem Anxiety F41.9 Active 37987229 Problem Idiopathic sleep related nonobstructive alveolar 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 Active 20983380 Problem Other chronic pain G89.29 Active 62609194 Problem Chronic obstructive pulmonary disease, unspecified COPD type J44.9 Active 88457629 Problem Venous vascular malformations Q27.9 Active 612128056 Problem Hypercholesterolemia E78.00 Active 14372737 Problem Primary insomnia F51.01 Active 3940542 Problem Irritable bowel syndrome with diarrhea K58.0 Active 682826589 Problem Benign prostatic hyperplasia with lower urinary tract symptoms N40.1 Active 155152505 Problem Obstructive sleep apnea G47.33 Active 66635054 Problem 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 605996745 Problem Other headache syndrome G44.89 Active 694905676 Problem Post concussion syndrome F07.81 Active 78584550 Problem Migraine without aura and without status migrainosus, not intractable G43.009 Active 667862769 ALLERGIES No Information ENCOUNTERS Encounter Location Date Diagnosis [facility] [address] [address] Nov, Other chronic pain G89.29 [facility] [id number] [place] [address] 89310- 1704 Nov, [facility] [address] [address] 3988 Oct, Other chronic pain G89.29 [facility] [id number] [place] [address] 48596- 0340 Oct, Chronic obstructive pulmonary disease, unspecified COPD type J44.9 [facility] [id number] [place] [address] 72041- 2346 Oct, [facility] [id number] [place] [address] 35642- 7758 Oct, Other chronic pain G89.29 [facility] [id number] [place] [address] 07637- 3017 Sep, Benign prostatic hyperplasia with lower urinary tract symptoms N40.1 and Frequency of micturition R35.0 [facility] [address] [address]81- 7549 Sep, Other chronic pain G89.29 [facility] [id number] [place] [address] 34361- 6091 Sep, Chronic obstructive pulmonary disease, unspecified COPD type J44.9 [facility] [id number] [place] [address] 21681- 2039 Sep, [facility] [id number] [place] [address] 67813- 2389 Aug, Irritable bowel syndrome with diarrhea K58.0 ; Other chronic pain G89.29 and Primary insomnia F51.01 [facility] [id number] [place] [address] 33703- 3047 Aug, Other chronic pain G89.29 [facility] [id number] [place] [address] 29557- 2455 Jul, Other chronic pain G89.29 [facility] [id number] [place] [address] 00929- 7316 Jun, Encounter for immunization Z23 [facility] [id number] [place] [address] 17997- 3621 Jun, Other chronic pain G89.29 [facility] [address] [place] [address] 2547 Apr, Other chronic pain G89.29 [facility] [id number] [place] [address] 85003- 3423 Mar, Other chronic pain G89.29 [facility] [id number] [place] [address] 36967- 6709 Mar, Decreased renal function N28.9 [facility] [address] 92298- 2797 Feb, Xyphoidalgia R07.89 [place] [address] [address]25- 6557 January, Arthralgia, unspecified joint M25.50 and Other chronic pain G89.29 [place] [id number] [place] [address] 64537- 5390 Dec, Drug-induced constipation K59.03 ; Fatigue, unspecified type R53.83 ; Forgetfulness R68.89 ; Other chronic pain G89.29 and Primary insomnia F51.01 [place] [id number] [place] [address] 96858- 5376 Nov, [facility] [id number] [place] [address] 26472- 3921 Oct, Other chronic pain G89.29 [facility] [id number] [place] [address] 10440- 1911 Sep, Other chronic pain G89.29 [facility] [id number] [place] [address] 72512- 9724 Sep, Other chronic pain G89.29 [place] [id number] [place] [address] 40316- 0335 Aug, Other chronic pain G89.29 [facility] [id number] [place] [address] 62198- 6977 Jul, Other chronic pain G89.29 ; Encounter for immunization Z23 and Side effects of treatment, initial encounter T88.9XXA [facility] [id number] [place] [address] 07691- 1771 Jul, Other chronic pain G89.29 [facility] [id number] [place] [address] 04970 -6191 Jul, [facility] [address] 07627- 4807 Jul, Encounter for immunization Z23 [facility] [address] 63555- 4730 Jun, Hypertension I10 ; Other headache syndrome G44.89 ; Post concussion syndrome F07.81 and Other chronic pain G89.29 [place] [id number] [place] [address] 17498- 9684 May, [facility] [address] 90196- 6765 May, Migraine without aura and without status migrainosus, not intractable G43.009 [facility] [id number] [place] [address] 02073- 9017 May, 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 [place] [id number] [place] [address] 80741- 0682 May, Other chronic pain G89.29 [facility] [address] 93371- 6763 Apr, Chronic obstructive pulmonary disease, unspecified COPD type J44.9 [facility] [id number] [place] [address] 02051- 7720 Apr, Chronic obstructive pulmonary disease, unspecified COPD type J44.9 [place] [id number] [place] [address] 82850- 3730 Apr, Other chronic pain G89.29 ; Irritable bowel syndrome with diarrhea K58.0 and Hypercholesterolemia E78.00 [place] [address] [address]- 8905 Apr, Other chronic pain G89.29 [facility] [id number] [place] [address] 13301- 5572 Mar, Other chronic pain G89.29 [facility] [id number] [place] [address] 25574- 5601 Feb, 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 [facility] [id number] [place] [address] 00929- 1384 Feb, Other chronic pain G89.29 [facility] [id number] [place] [address] 74884- 4735 Feb, [facility] [id number] [place] [address] 77799- 1285 January, [facility] [id number] [place] [address] 76306- 1923 January, Other chronic pain G89.29 [facility] [id number] [place] [address] 60518- 8048 January, [facility] [id number] [place] [address] 07325- 2125 January, [facility] [address] [address]- 0374 January, Other chronic pain G89.29 ; Irritable bowel syndrome with diarrhea K58.0 and Hypercholesterolemia E78.00 [facility] [address] [address]- 3586 January, Other chronic pain G89.29 ; Hypertension I10 ; Irritable bowel syndrome with diarrhea K58.0 ; Chronic obstructive pulmonary disease, unspecified COPD type J44.9 and Venous vascular malformations Q27.9 [facility] [address] [address] January, Acute otitis externa of right ear, unspecified type H60.501 [facility] [address] [address]- 4936 Dec, Other chronic pain G89.29 [facility] [id number] [place] [address] 39502- 5862 Dec, Hypertension I10 [facility] [address] [place] [address] 24259- 7856 Nov, Other chronic pain G89.29 [facility] [id number] [place] [address] 01393- 7897 Oct, Other chronic pain G89.29 [facility] [id number] [place] [address] 95909- 1210 Sep, Other chronic pain G89.29 [facility] [id number] [place] [address] 25703- 0144 Sep, Hypertension I10 [facility] [id number] [place] [address] 02967- 2514 Sep, Other chronic pain G89.29 [facility] [address] [place] [address] 91624- 5097 Aug, Arthralgia, unspecified joint M25.50 ; Other chronic pain G89.29 ; Obstructive sleep apnea G47.33 and Idiopathic sleep related nonobstructive alveolar 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 [facility] [address] [place] [address] 04100- 0925 Aug, [facility] [id number] [place] [address] 01965- 8674 Aug, Other chronic pain G89.29 [facility] [id number] [place] [address] 18097- 9505 Jul, Chronic obstructive pulmonary disease, unspecified COPD type J44.9 and Diarrhea, unspecified type R19.7 [facility] [address] [place] [address] 08204- 9699 Jul, Other chronic pain G89.29 [facility] [id number] [place] [address] 62655- 2558 Jul, Skin tags, multiple acquired L91.8 [facility] [id number] [place] [address] 32620- 9065 Jun, [facility] [address] 17258- 5987 Jun, Hypertension I10 [place] [address] 13483- 6332 May, Mouth pain K13.79 and Other chronic pain G89.29 [place] [address] 93574- 6410 May, [place] [id number] [place] [address] 66972- 2000 May, [place] [address] 41968- 2052 May, Pain in right knee M25.561 and Other chronic pain G89.29 [place] [id number] [place] [address] 93014- 4791 Apr, Cervicalgia M54.2 [place] [id number] [place] [address] 14289- 3751 Mar, Cervicalgia M54.2 [place] [id number] [place] [address] 13194- 8453 Feb, Fever, unspecified fever cause R50.9 and Arthralgia, unspecified joint M25.50 [place] [id number] [place] [address] 32948- 3518 15 Feb, 2016 Hypertension I10 and Chronic pain syndrome G89.4 [place] [id number] [place] [address] 17281- 9002 08 Feb, 2016 Cervicalgia M54.2 [place] [address] 21767- 4742 January, [place] [address] [place] [address] 21267- 1312 Dec, Chest pain R07.9 ; Family history of early CAD Z82.49 ; Hypertension I10 ; Fatigue R53.83 and History of IBS Z87.19 [place] [id number] [place] [address] 34204- 4493 Dec, [place] [id number] [place] [address] 37021- 4720 Nov, Allergic rhinitis J30.9 [place] [id number] [place] [address] 25121- 8178 Nov, [place] [id number] [place] [address] 68969- 7575 Nov, Hypertension I10 and Anxiety F41.9 [place] [id number] [place] [address] 70368- 2965 Nov, [place] [id number] [place] [address] 72142- 6001 Oct, [place] [id number] [place] [address] 41648- 5230 Oct, Chest pain R07.9 ; Family history of early CAD Z82.49 ; Hypertension I10 ; Fatigue R53.83 and History of IBS Z87.19 [place] [id number] [place] [address] 58377- 3843 Oct, [place] [id number] [place] [address] 73092- 5961 Oct, Chest pain, unspecified R07.9 [place] [id number] [place] [address] 49806- 9757 08 Oct, 2015 Chest pain, unspecified R07.9 ; Irritable bowel syndrome with diarrhea K58.0 ; Fatigue R53.83 and Degenerative disc disease, cervical M50.30 [place] [id number] [place] [address] 84515- 9526 Oct, [facility] [id number] [place] [address] 520770- 7046 Oct, [facility] [id number] [place] [address] 945997- 3091 Sep, [facility] [id number] [place] [address] 365784- 6650 Sep, [facility] [id number] [place] [address] 771411- 2901 Aug, [facility] [id number] [place] [address] 820193- 2676 Aug, [facility] [id number] [place] [address] 978123- 9061 Aug, [facility] [id number] [place] [address] 88398- 6435 Jul, Cervicalgia M54.2 ; Headache R51 ; Post-traumatic headache, unspecified, not intractable G44.309 and Unspecified intracranial injury without loss of consciousness, sequela S06.9X0S [facility] [id number] [place] [address] 22507- 2517 Jul, [facility] [id number] [place] [address] 767158- 5999 Jul, [facility] [id number] [place] [address] 562323- 6817 Jun, [facility] [id number] [place] [address] 569261- 0499 Jun, Encounter for immunization Z23 [facility] [id number] [place] [address] 864143- 8989 Jun, [facility] [id number] [place] [address] 175563- 1757 May, [facility] [address] [facility] [id number] [place] [address]- 2546 May, [facility] [place] [facility] [address] [id number] [place] [address]- 7169 Apr, [facility] [place] [facility] [address] [id number] [place] [address] 2546 Apr, [facility] [place] [facility] [address] [id number] [place] [address]- 3616 Apr, [facility] [place] [facility] [address] [id number] [place] [address]- 0636 Mar, [facility] [place] [facility] [address] [id number] [place] [address]- 3220 Mar, [facility] [place] [facility] [address] [id number] [place] [address]- 9560 Mar, [facility] [place] [facility] [address] [id number] [place] [address]- 5527 Feb, [facility] [place] [facility] [address] [id number] [place] [address]- 6206 Feb, [facility] [place] [facility] [address] [id number] [place] [address]- 8853 January, [facility] [place] [facility] [address] [id number] [place] [address]- 3301 January, [facility] [place] [facility] [address] [id number] [place] [address]- 1071 Dec, [facility] [place] [facility] [address] [id number] [place] [address]- 8223 Dec, [facility] [place] [facility] [address] [id number] [place] [address]- 3736 Nov, [facility] [place] [facility] [address] [id number] [place] [address]- 2546 Nov, [facility] [place] [facility] [address] [id number] [place] [address]- 1164 Nov, [facility] [place] [facility] [address] [id number] [place] [address]- 4804 Nov, [facility] [place] [facility] [address] [id number] [place] [address]- 5170 Nov, [facility] [place] [facility] [address] [id number] [place] [address]- 9114 Nov, [facility] [place] [facility] [address] [id number] [place] [address]- 7083 Nov, [facility] [place] [facility] [address] [id number] [place] [address]- 9510 Nov, [facility] [place] [facility] [address] [id number] [place] [address]- 3592 Nov, [facility] [place] [facility] [address] [id number] [place] [address]- 5309 Nov, [facility] [place] [facility] [address] [id number] [place] [address]- 0146 Nov, [facility] [place] [facility] [address] [id number] [place] [address]- 9405 Nov, [facility] [place] [facility] [address] [id number] [place] [address]- 6792 Nov, [facility] [place] [facility] [address] [id number] [address]- 2799 Nov, [facility] [place] [facility] [address] [id number] [address]- 0130 Oct, [facility] [place] [facility] [address] [id number] [place] [address]- 3115 Oct, [facility] [place] [facility] [address] [id number] [place] [address]- 1659 Oct, [facility] [place] [facility] [address] [id number] [place] [address]- 1407 Oct, [facility] [place] [facility] [address] [id number] [place] [address]- 8627 Sep, [facility] [address] [id number] [place] [address]- 0642 Sep, [facility] [address] [id number] [place] [address]- 8804 Sep, [facility] [address] [id number] [place] [address]- 6977 Sep, [facility] [address] [id number] [place] [address]- 0145 Sep, [facility] [address] [id number] [place] [address]- 6510 Sep, [facility] [address] [id number] [place] [address]- 8142 Sep, [facility] [address] [id number] [place] [address]- 8852 Sep, [facility] [address] [id number] [place] [address]- 0339 Aug, [facility] [address] [id number] [place] [address]- 4577 Aug, [facility] [address] [id number] [place] [address]- 8572 Aug, [facility] [address] [id number] [place] [address]- 4560 Aug, [facility] [address] [id number] [place] [address]- 0791 Aug, [facility] [place] [facility] [address] [id number] [place] [address]- 8350 Aug, [facility] [place] [facility] [address] [id number] [place] [address]- 8575 Aug, [facility] [address] [id number] [place] [address]- 7442 Aug, [facility] [place] [facility] [address] [id number] [place] [address]- 6376 Jul, [facility] [place] [facility] [address] [id number] [place] [address]- 4523 Jul, [facility] [place] [facility] [address] [id number] [place] [address]- 8112 Jul, [facility] [place] [facility] [address] [id number] [place] [address] Jul, [facility] [place] [facility] [address] [id number] [place] [address] Jul, [facility] [place] [facility] [address] [id number] [place] [address] Jul, [facility] [place] [facility] [address] [id number] [place] [address] Jul, [facility] [place] [facility] [address] [id number] [place] [address] Jul, [facility] [place] [facility] [address] [id number] [place] [address] Jul, [facility] [place] [facility] [address] [id number] [place] [address] Jul, [facility] [place] [facility] [address] [id number] [place] [address] Jul, [facility] [place] [facility] [address] [id number] [address] Jun, [facility] [place] [facility] [address] [id number] [place] [address] Jun, [facility] [place] [facility] [address] [id number] [place] [address] Jun, [facility] [place] [facility] [address] [id number] [place] [address] Jun, [facility] [place] [facility] [address] [id number] [place] [address] Jun, [facility] [place] [facility] [address] [id number] [place] [address] Jun, [facility] [place] [facility] [address] [id number] [place] [address] Jun, [facility] [place] [facility] [address] [id number] [place] [address] Jun, [facility] [place] [facility] [address] [id number] [place] [address] Jun, [facility] [place] [facility] [address] [id number] [place] [address]- [address] Jun, [facility] [place] [facility] [address] [id number] [place] [address] Jun, [facility] [place] [facility] [address] [id number] [place] [address]- [address] Jun, [facility] [place] [facility] [address] [id number] [place] [address] 2010 Jun, [facility] [place] [facility] [address] [id number] [place] [address] Jun, [facility] [place] [facility] [address] [id number] [place] [address] Jun, [facility] [place] [facility] [address] [id number] [place] [address] Jun, [facility] [place] [facility] [address] [id number] [place] [address] Jun, [facility] [place] [facility] [address] [id number] [place] [address] 25 May, 2013 [facility] [place] [facility] [address] [id number] [place] [address] May, 2013 [facility] [place] [facility] [address] [id number] [place] [address] May, 2013 [facility] [place] [facility] [address] [id number] [place] [address] 04 May, 2013 [facility] [place] [facility] [address] [id number] [place] [address] 04 May, 2014 [facility] [place] [facility] [address] [id number] [place] [address] May, [facility] [place] [facility] [address] [id number] [place] [address] May, [facility] [place] [facility] [address] [id number] [place] [address]- [address] Apr, [facility] [place] [facility] [address] [id number] [place] [address] Apr, [facility] [place] [facility] [address] [id number] [place] [address] Apr, [facility] [place] [facility] [address] [id number] [place] [address] Apr, [facility] [place] [facility] [address] [id number] [place] [address] Apr, [facility] [place] [facility] [address] [id number] [place] [address] Apr, [facility] [place] [facility] [address] [id number] [place] [address] Apr, [facility] [place] [facility] [address] [address] [id number] [place] [address] Apr, [facility] [place] [facility] [address] [id number] [place] [address] Apr, [facility] [place] [facility] [address] [id number] [place] [address] Apr, [facility] [place] [facility] [address] [id number] [place] [address] Apr, [facility] [place] [facility] [address] [id number] [place] [address] 8679 Mar, [facility] [place] [facility] [address] [id number] [place] [address] 6318 Mar, [facility] [place] [facility] [address] [id number] [place] [address] 6790 Mar, [facility] [place] [facility] [address] [id number] [place] [address] 2702 Mar, [facility] [place] [facility] [address] [id number] [place] [address] 9695 Feb, [facility] [place] [facility] [address] [id number] [place] [address]- 7246 Feb, [facility] [place] [facility] [address] [id number] [place] [address] 7142 Feb, [facility] [place] [facility] [address] [id number] [place] [address]- 9898 Feb, [facility] [place] [facility] [address] [id number] [place] [address]- 2166 Feb, [facility] [place] [facility] [address] [id number] [place] [address]- 7180 Feb, [facility] [place] [facility] [address] [id number] [place] [address] 4615 Feb, [facility] [place] [facility] [address] [id number] [place] [address]- 8683 Feb, [facility] [place] [facility] [address] [id number] [place] [address]- 7669 January, [facility] [place] [facility] [address] [id number] [place] [address] 2049 January, [facility] [place] [facility] [address] [id number] [place] [address]- 8868 January, [facility] [place] [facility] [address] [id number] [place] [address] 8150 January, [facility] [place] [facility] [address] [id number] [place] [address] 4178 Dec, [facility] [place] [facility] [address] [id number] [place] [address] 1196 Dec, [facility] [place] [facility] [address] [id number] [place] [address]- 8274 Dec, [facility] [place] [facility] [address] [id number] [place] [address]- 3927 Dec, [facility] [place] [facility] [address] [id number] [place] [address]- 8820 Dec, [facility] [place] [facility] [address] [id number] [place] [address]- 2432 Dec, [facility] [place] [facility] [address] [id number] [place] [address]- 4400 Dec, [facility] [place] [facility] [address] [id number] [place] [address]- 1213 Dec, [facility] [place] [facility] [address] [id number] [place] [address]- 9125 Dec, [facility] [place] [facility] [address] [id number] [place] [address]- 1091 Dec, [facility] [place] [facility] [address] [id number] [place] [address]- 3835 Nov, [facility] [place] [facility] [address] [id number] [place] [address]- 1835 Nov, [facility] [place] [facility] [address] [id number] [place] [address]- 8616 Nov, [facility] [place] [facility] [address] [id number] [place] [address]- 8468 Nov, [facility] [place] [facility] [address] [id number] [place] [address]- 9535 Nov, [facility] [place] [facility] [address] [id number] [place] [address]- 5072 Oct, [facility] [place] [facility] [address] [id number] [place] [address] 1643 Oct, [facility] [place] [facility] [address] [id number] [place] [address]- 9999 Sep, [facility] [place] [facility] [address] [id number] [place] [address]- 0238 Sep, [facility] [address] [id number] [place] [address]- 5372 Sep, [facility] [address] [id number] [place] [address]- 2275 Sep, [facility] [place] [facility] [address] [id number] [place] [address]- 4846 Aug, [facility] [address] [id number] [place] [address] 1815 Aug, [facility] [address] [id number] [place] [address]- 8364 Aug, [facility] [place] [facility] [address] [id number] [place] [address]- 3537 Aug, [facility] [place] [facility] [address] [id number] [place] [address]- 6743 Aug, [facility] [place] [facility] [address] [id number] [place] [address]- 1761 Aug, [facility] [place] [facility] [address] [id number] [place] [address]- 1667 Aug, [facility] [place] [facility] [address] [id number] [place] [address]- 3883 Aug, [facility] [place] [facility] [address] [id number] [place] [address]- 3516 Jul, [facility] [place] [facility] [address] [id number] [place] [address]- 5620 Jul, [facility] [place] [facility] [address] [id number] [place] [address]- 0586 Jul, [facility] [place] [facility] [address] [id number] [place] [address]- 6844 Jul, [facility] [place] [facility] [address] [id number] [place] [address]- 9736 Jun, [facility] [place] [facility] [address] [id number] [place] [address]- 1124 Jun, [facility] [place] [facility] [address] [id number] [place] [address]- 7949 Jun, [facility] [place] [facility] [address] [id number] [place] [address]- 6204 Jun, [facility] [place] [facility] [address] [id number] [place] [address]- 2845 Jun, [facility] [place] [facility] [address] [id number] [place] [address]- 5327 May, [facility] [place] [facility] [address] [id number] [place] [address]- 3295 Apr, [facility] [place] [facility] [address] [id number] [place] [address]- 0026 Apr, [facility] [place] [facility] [address] [id number] [place] [address]- 6752 Mar, [facility] [place] [facility] [address] [id number] [place] [address]- 5995 Feb, [facility] [place] [facility] [address] [id number] [place] [address]- 0077 Feb, [facility] [place] [facility] [address] [id number] [place] [address]- 6770 January, [facility] [place] [facility] [address] [id number] [place] [address]- 2834 January, [facility] [place] [facility] [address] [id number] [place] [address]- 3915 January, [facility] [place] [facility] [address] [id number] [place] [address]- 1871 Nov, [facility] [place] [facility] [address] [id number] [place] [address]- 3189 Oct, [facility] [place] [facility] [address] [id number] [place] [address]- 1956 Oct, [facility] [place] [facility] [address] [id number] [place] [address]- 0856 Oct, [facility] [place] [facility] [address] [id number] [place] [address]- 1789 Sep, [facility] [place] [facility] [address] [id number] [place] [address]- 3370 Sep, [facility] [place] [facility] [address] [id number] [place] [address]- 5761 Aug, [facility] [place] [facility] [address] [id number] [place] [address]- 9566 Aug, [facility] [place] [facility] [address] [id number] [place] [address]- 9971 Jul, [facility] [place] [facility] [address] [id number] [place] [address]- 0566 Jul, [facility] [place] [facility] [address] [id number] [place] [address]- 5336 Jul, [facility] [place] [facility] [address] [id number] [place] [address]- 2710 Jul, [facility] [place] [facility] [address] [id number] [place] [address]- 6205 Jul, [facility] [place] [facility] [address] [id number] [place] [address]- 3431 Jul, [facility] [place] [facility] [address] [id number] [place] [address]- 3958 Jul, [facility] [place] [facility] [address] [id number] [place] [address]- 9550 Jul, [facility] [place] [facility] [address] [id number] [place] [address]- 0734 Jul, [facility] [place] [facility] [address] [id number] [place] [address]- 7853 Jul, [facility] [place] [facility] [address] [id number] [place] [address]- 0798 Jul, [facility] [place] [facility] [address] [id number] [place] [address]- 5191 Jul, [facility] [place] [facility] [address] [id number] [place] [address]- 6583 Jul, [facility] [place] [facility] [address] [id number] [place] [address]- 8963 Jul, [facility] [place] [facility] [address] [facility] [id number] [place] [address]- 6917 Jun, [facility] [place] [facility] [address] [id number] [place] [address]- 1256 Jun, [facility] [place] [facility] [address] [id number] [place] [address]- 0994 Jun, [facility] [place] [facility] [address] [id number] [place] [address]- 6597 Jun, [facility] [place] [facility] [address] [id number] [address]- 1604 Jun, [facility] [place] [facility] [address] [id number] [place] [address]- 3390 Jun, [facility] [place] [facility] [address] [id number] [place] [address]- 8129 Jun, [facility] [place] [facility] [address] [id number] [address]- 5549 Apr, [facility] [place] [facility] [address] [facility] [id number] [place] [address]- 5752 Apr, [facility] [place] [facility] [address] [id number] [place] [address]- 6144 Mar, [facility] [address] [id number] [place] [address]- 3686 Feb, [facility] [address] [id number] [place] [address]- 7573 Feb, [facility] [address] [id number] [place] [address]- 4954 January, [facility] [address] [id number] [place] [address]- 0282 January, [facility] [address] [id number] [place] [address]- 4326 Dec, [facility] [address] [id number] [place] [address]- 0976 Dec, [facility] [address] [id number] [place] [address]- 9128 Nov, [facility] [address] [id number] [place] [address]- 9239 Oct, [facility] [address] [id number] [place] [address]- 9852 Oct, [facility] [address] [id number] [place] [address]- 2569 Oct, [facility] [address] [id number] [place] [address]- 3742 Sep, [facility] [address] [id number] [place] [address]- 1256 Aug, [facility] [place] [facility] [address] [id number] [place] [address]- 0251 Aug, [facility] [place] [facility] [address] [id number] [place] [address]- 3436 Aug, [facility] [place] [facility] [address] [id number] [place] [address]- 0336 05 Aug, 2011 [facility] [place] [facility] [address] [id number] [place] [address]- 5506 02 Aug, 2011 [facility] [place] [facility] [address] [id number] [place] [address] Jul, [facility] [place] [facility] [address] [id number] [place] [address]- 6305 Jul, [facility] [place] [facility] [address] [id number] [place] [address]- 8526 Jul, [facility] [place] [facility] [address] [id number] [place] [address] 08 Jul, 2011 [facility] [place] [facility] [address] [id number] [place] [address]- 0534 29 Aug, 2010 [facility] [place] [facility] [address] [id number] [place] [address]- 0052 28 Aug, 2010 [facility] [place] [facility] [address] [id number] [place] [address]- 5062 Aug, [facility] [place] [facility] [address] [id number] [place] [address]- 7969 Jun, [facility] [place] [facility] [address] [id number] [place] [address]- 9629 Jun, [facility] [place] [facility] [address] [id number] [place] [address]- 5854 Jun, [facility] [place] [facility] [address] [id number] [place] [address]- 2445 Jun, [facility] [place] [facility] [address] [id number] [place] [address]- 3428 Jun, [facility] [place] [facility] [address] [id number] [place] [address]- 8652 30 Jul, 2009 [facility] [place] [facility] [address] [id number] [address]- 6875 02 Jul, 2009 [facility] [place] [facility] [address] [id number] [place] [address]- 2326 Jun, [facility] [address] [facility] [id number] [place] [address]- 7081 Jun, IMMUNIZATIONS No Known Immunizations SOCIAL HISTORY Never Assessed REASON FOR VISIT EMR-[facility] [place] PLAN OF CARE VITAL SIGNS MEDICATIONS Unknown [...]
--- OUTSIDE RECORDS SUMMARY | 2019-01-02 06:19 | XMS REPORT | Continuity of Care Document ---
Author Organization Unknown Address Unknown Allergies Active Description Code Type Severity Reaction Onset Reported/Identified Relationship to Patient Clinical Status Yes Penicillins [id number] Drug Allergy Unknown N/A 07/11/2007 Yes Penicillins [...] PARADISE K 569.3 Bleeding Rectal 08/21/2008 LOPEZ DO, PARADISE K 719.42 Pain In Joint Involving Upper Arm 08/21/2008 LOPEZ DO, PARADISE K 719.46 Pain In Joint Involving Lower Leg 08/21/2008 LOPEZ DO, PARADISE K 569.3 Bleeding Rectal 08/21/2008 LOPEZ DO, PARADISE K 719.42 Pain In Joint Involving Upper Arm 08/21/2008 LOPEZ DO, PARADISE K 719.46 Pain In Joint Involving Lower Leg 08/21/2008 SOFIA FACILITIES ADMINISTRATOR LASHAY S 569.3 Bleeding Rectal 08/21/2008 SOFIA FACILITIES ADMINISTRATOR LASHAY S 719.42 Pain In Joint Involving Upper Arm 08/21/2008 SOFIA FACILITIES ADMINISTRATOR, LASHAY S 719.46 Pain In Joint Involving Lower Leg 08/21/2008 SOFIA FACILITIES ADMINISTRATOR, LASHAY S 569.3 Bleeding Rectal 08/21/2008 SOFIA [...] In Joint Involving Lower Leg 08/21/2008 SOFIA FACILITIES ADMINISTRATOR, LASHAY S 569.3 Bleeding Rectal 08/21/2008 SOFIA CHILDS LASHAY S 719.42 Pain In Joint Involving Upper Arm 08/21/2008 SOFIA FACILITIES ADMINISTRATOR, LASHAY S 719.46 Pain In Joint Involving Lower Leg 08/21/2008 SOFIA FACILITIES ADMINISTRATOR LASHAY S 569.3 Bleeding Rectal 08/21/2008 SOFIA FACILITIES ADMINISTRATOR LASHAY S 719.42 Pain In Joint Involving Upper Arm 08/21/2008 SOFIA FACILITIES ADMINISTRATOR, LASHAY S 719.46 Pain In Joint Involving Lower Leg 08/21/2008 SOFIA FACILITIES ADMINISTRATOR LASHAY S 569.3 Bleeding Rectal 08/21/2008 SOFIA FACILITIES ADMINISTRATOR LASHAY S 719.42 Pain In Joint Involving Upper Arm 08/21/2008 SOFIA FACILITIES ADMINISTRATOR LASHAY S 719.46 Pain In Joint Involving Lower Leg 08/21/2008 SOFIA FACILITIES ADMINISTRATOR LASHAY S 569.3 Bleeding Rectal 08/21/2008 SOFIA FACILITIES ADMINISTRATOR, LASHAY S 719.42 Pain In Joint Involving Upper Arm 08/21/2008 SOFIA FACILITIES ADMINISTRATOR LASHAY S 719.46 Pain In Joint Involving Lower Leg 08/21/2008 SOFIA FACILITIES ADMINISTRATOR LASHAY S 569.3 Bleeding Rectal 08/21/2008 SOFIA FACILITIES ADMINISTRATOR LASHAY S 719.42 Pain In Joint Involving Upper Arm 08/21/2008 SOFIA FACILITIES ADMINISTRATOR, LASHAY S 719.46 Pain In Joint Involving Lower Leg 08/21/2008 HALEY DPM, KRYSTLE 569.3 Bleeding Rectal 08/21/2008 HALEY DPM, KRYSTLE 719.42 Pain In Joint Involving Upper Arm 08/21/2008 HALEY DPM, KRYSTLE 719.46 Pain In Joint Involving Lower Leg 08/21/2008 MADL FACILITIES ADMINISTRATOR, RAJIV L 569.3 Bleeding Rectal 08/21/2008 MADL FACILITIES ADMINISTRATOR, RAJIV L 719.42 Pain In Joint Involving Upper Arm 08/21/2008 MADL FACILITIES ADMINISTRATOR, RAJIV L 719.46 Pain In Joint Involving Lower Leg 08/21/2008 SOFIA FACILITIES ADMINISTRATOR, LASHAY S 569.3 Bleeding Rectal 08/21/2008 SOFIA FACILITIES ADMINISTRATOR, LASHAY S 719.42 Pain In Joint Involving Upper Arm 08/21/2008 SOFIA FACILITIES ADMINISTRATOR LASHAY S 719.46 Pain In Joint Involving Lower Leg 09/23/2008 LOPEZ DO, PARADISE K 272.0 HYPERCHOLESTEROLEMIA PURE 09/23/2008 LOPEZ DO, PARADISE K 401.1 HYPERTENSION, BENIGN ESSENTIAL 09/23/2008 LOEPZ DO, PARADISE K 272.0 HYPERCHOLESTEROLEMIA PURE 09/23/2008 LOPEZ DO, PARADISE K 401.1 HYPERTENSION, BENIGN ESSENTIAL 09/23/2008 SOFIA FACILITIES ADMINISTRATOR, LASHAY S 272.0 HYPERCHOLESTEROLEMIA PURE 09/23/2008 SOFIA FACILITIES ADMINISTRATOR, LASHAY S 401.1 HYPERTENSION, BENIGN ESSENTIAL 09/23/2008 [...] K 401.1 HYPERTENSION, BENIGN ESSENTIAL 09/23/2008 SOFIA FACILITIES ADMINISTRATOR, LASHAY S 272.0 HYPERCHOLESTEROLEMIA PURE 09/23/2008 SOFIA FACILITIES ADMINISTRATOR, LASHAY S 401.1 HYPERTENSION, BENIGN ESSENTIAL 09/23/2008 SOFIA FACILITIES ADMINISTRATOR, LASHAY S 272.0 HYPERCHOLESTEROLEMIA PURE 09/23/2008 SOFIA FACILITIES ADMINISTRATOR, LASHAY S 401.1 HYPERTENSION, BENIGN ESSENTIAL 09/23/2008 ESVIN LINDA MD 272.0 HYPERCHOLESTEROLEMIA PURE 09/23/2008 ESVIN LINDA MD 401.1 HYPERTENSION, BENIGN ESSENTIAL 09/23/2008 SOFIA FACILITIES ADMINISTRATOR, LASHAY S 272.0 HYPERCHOLESTEROLEMIA PURE 09/23/2008 SOFIA FACILITIES ADMINISTRATOR, LASHAY S 401.1 HYPERTENSION, BENIGN ESSENTIAL 09/23/2008 SOFIA FACILITIES ADMINISTRATOR, LASHAY S 272.0 HYPERCHOLESTEROLEMIA PURE 09/23/2008 SOFIA FACILITIES ADMINISTRATOR, LASHAY S 401.1 HYPERTENSION, BENIGN ESSENTIAL 09/23/2008 SOFIA FACILITIES ADMINISTRATOR, LASHAY S 272.0 HYPERCHOLESTEROLEMIA PURE 09/23/2008 SOFIA FACILITIES ADMINISTRATOR, LAHSAY S 401.1 HYPERTENSION, BENIGN ESSENTIAL 09/23/2008 SOFIA FACILITIES ADMINISTRATOR, LASHAY S 272.0 HYPERCHOLESTEROLEMIA PURE 09/23/2008 SOFIA FACILITIES ADMINISTRATOR, LASHAY S 401.1 HYPERTENSION, BENIGN ESSENTIAL 09/23/2008 SOFIA FACILITIES ADMINISTRATOR, LASHAY S 272.0 HYPERCHOLESTEROLEMIA PURE 09/23/2008 SOFIA FACILITIES ADMINISTRATOR, LASHAY S 401.1 HYPERTENSION, BENIGN ESSENTIAL 09/23/2008 SOFIA CHILDS, LASHAY S 272.0 HYPERCHOLESTEROLEMIA PURE 09/23/2008 SOFIA FACILITIES ADMINISTRATOR, LASHAY S 401.1 HYPERTENSION, BENIGN ESSENTIAL 09/23/2008 HALEY DPM, KRYSTLE 272.0 HYPERCHOLESTEROLEMIA PURE 09/23/2008 HALEY DPM, KRYSTLE 401.1 HYPERTENSION, BENIGN ESSENTIAL 09/23/2008 MADL FACILITIES ADMINISTRATOR, RAJIV L 272.0 HYPERCHOLESTEROLEMIA PURE 09/23/2008 MADL FACILITIES ADMINISTRATOR, RAJIV L 401.1 HYPERTENSION, BENIGN ESSENTIAL 09/23/2008 SOFIA OLMOSN, LASHAY S 272.0 HYPERCHOLESTEROLEMIA PURE 09/23/2008 SOFIA OLMOSN, LASHAY S 401.1 HYPERTENSION, BENIGN ESSENTIAL 10/03/2008 [...] Joint Involving Ankle And Foot 10/03/2008 SOFIA FACILITIES ADMINISTRATOR, LASHAY S 719.47 Pain In Joint Involving Ankle And Foot 10/03/2008 SOFIA FACILITIES ADMINISTRATOR, LASHAY S 719.47 Pain In Joint Involving Ankle And Foot 10/03/2008 HALEY DPBrendaKRYSTLE 719.47 Pain In Joint Involving Ankle And Foot 10/03/2008 MADL FACILITIES ADMINISTRATOR, RAJIV L 719.47 Pain In Joint Involving Ankle And Foot 10/03/2008 SOFIA FACILITIES ADMINISTRATOR, ALSHAY S 719.47 Pain In Joint Involving Ankle And Foot 10/25/2008 LOPEZ DO, PARADISE K 726.79 Other Enthesopathy Of Ankle And Tarsus 10/25/2008 LOPEZ DO, PARADISE K 726.79 Other Enthesopathy Of Ankle And Tarsus 10/25/2008 SOFIA FACILITIES ADMINISTRATOR, LASHAY S 726.79 Other Enthesopathy Of Ankle And Tarsus 10/25/2008 726.79 Other Enthesopathy Of Ankle And Tarsus 10/25/2008 LOPEZ DO, PARADISE K 726.79 Other Enthesopathy Of Ankle And Tarsus 10/25/2008 LOPEZ DO, PARADISE K 726.79 Other Enthesopathy Of Ankle And Tarsus 10/25/2008 LOPEZ DO, PARADISE K 726.79 Other Enthesopathy Of Ankle And Tarsus 10/25/2008 SOFIA FACILITIES ADMINISTRATOR, LASHAY S 726.79 Other Enthesopathy Of Ankle And Tarsus 10/25/2008 SOFIA FACILITIES ADMINISTRATOR, LASHAY S 726.79 Other Enthesopathy Of Ankle And Tarsus 10/25/2008 ESVIN LINDA MD 726.79 Other Enthesopathy Of Ankle And Tarsus 10/25/2008 SOFIA FACILITIES ADMINISTRATOR, LASHAY S 726.79 Other Enthesopathy Of Ankle And Tarsus 10/25/2008 SOFIA FACILITIES ADMINISTRATOR, LASHAY S 726.79 Other Enthesopathy Of Ankle And Tarsus 10/25/2008 SOFIA FACILITIES ADMINISTRATOR, LASHAY S 726.79 Other Enthesopathy Of Ankle And Tarsus 10/25/2008 SOFIA FACILITIES ADMINISTRATOR, LASHAY S 726.79 Other Enthesopathy Of Ankle And Tarsus 10/25/2008 SOFIA FACILITIES ADMINISTRATOR, LASHAY S 726.79 Other Enthesopathy Of Ankle And Tarsus 10/25/2008 SOFIA FACILITIES ADMINISTRATOR, LASHAY S 726.79 Other Enthesopathy Of Ankle And Tarsus 10/25/2008 HALEY DPM, KRYSTLE 726.79 Other Enthesopathy Of Ankle And Tarsus 10/25/2008 MADL FACILITIES ADMINISTRATOR, RAJIV L 726.79 Other Enthesopathy Of Ankle And Tarsus 10/25/2008 SOFIA FACILITIES ADMINISTRATOR, LASHAY S 726.79 Other Enthesopathy Of Ankle And Tarsus 05/14/2009 LOPEZ DO, PARADISE K 789.00 Abdominal Pain Of Childhood 05/14/2009 LOPEZ DO, PARADISE K 789.00 Abdominal Pain Of Childhood 05/14/2009 SOFIA FACILITIES ADMINISTRATOR, LASHAY S 789.00 Abdominal Pain Of Childhood 05/14/2009 789.00 Abdominal Pain Of Childhood 05/14/2009 LOPEZ DO, PARADISE K 789.00 Abdominal Pain Of Childhood 05/14/2009 LOPEZ DO, PARADISE K 789.00 Abdominal Pain Of Childhood 05/14/2009 LOPEZ DO, PARADISE K 789.00 Abdominal Pain Of Childhood 05/14/2009 SOFIA FACILITIES ADMINISTRATOR, LASHAY S 789.00 Abdominal Pain Of Childhood 05/14/2009 SOFIA FACILITIES ADMINISTRATOR, LASHAY S 789.00 Abdominal Pain Of Childhood 05/14/2009 ESVIN LINDA MD 789.00 Abdominal Pain Of Childhood 05/14/2009 SOFIA FACILITIES ADMINISTRATOR, LASHAY S 789.00 Abdominal Pain Of Childhood 05/14/2009 SOFIA FACILITIES ADMINISTRATOR, LASHAY S 789.00 Abdominal Pain Of Childhood 05/14/2009 SOFIA FACILITIES ADMINISTRATOR, LASHAY S 789.00 Abdominal Pain Of Childhood 05/14/2009 SOFIA FACILITIES ADMINISTRATOR, LASHAY S 789.00 Abdominal Pain Of Childhood 05/14/2009 SOFIA FACILITIES ADMINISTRATOR, LASHAY S 789.00 Abdominal Pain Of Childhood 05/14/2009 SOFIA FACILITIES ADMINISTRATOR, LASHAY S 789.00 Abdominal Pain Of Childhood 05/14/2009 HALEY DPM, KRYSTLE 789.00 Abdominal Pain Of Childhood 05/14/2009 MADL FACILITIES ADMINISTRATOR, RAJIV L 789.00 Abdominal Pain Of Childhood 05/14/2009 SOFIA FACILITIES ADMINISTRATOR, LASHAY S 789.00 Abdominal Pain Of Childhood 05/21/2009 LOPEZ DO, PARADISE K 601.0 Prostatitis Acute Bacterial 05/21/2009 LOPEZ DO, PARADISE K 601.0 Prostatitis Acute Bacterial 05/21/2009 SOFIA FACILITIES ADMINISTRATOR, LASHAY S 601.0 Prostatitis Acute Bacterial 05/21/2009 601.0 Prostatitis Acute Bacterial 05/21/2009 LOPEZ DO, PARADISE K 601.0 Prostatitis Acute Bacterial 05/21/2009 LOPEZ DO, PARADISE K 601.0 Prostatitis Acute Bacterial 05/21/2009 LOPEZ DO, PARADISE K 601.0 Prostatitis Acute Bacterial 05/21/2009 SOFIA FACILITIES ADMINISTRATOR, LASHAY S 601.0 Prostatitis Acute Bacterial 05/21/2009 SOFIA FACILITIES ADMINISTRATOR, LASHAY S 601.0 Prostatitis Acute Bacterial 05/21/2009 ESVIN LINDA MD 601.0 Prostatitis Acute Bacterial 05/21/2009 SOFIA FACILITIES ADMINISTRATOR, LASHAY S 601.0 Prostatitis Acute Bacterial 05/21/2009 SOFIA FACILITIES ADMINISTRATOR, LASHAY S 601.0 Prostatitis Acute Bacterial 05/21/2009 SOFIA FACILITIES ADMINISTRATOR, LASHAY S 601.0 Prostatitis Acute Bacterial 05/21/2009 SOFIA FACILITIES ADMINISTRATOR, LASHAY S 601.0 Prostatitis Acute Bacterial 05/21/2009 SOFIA FACILITIES ADMINISTRATOR, LASHAY S 601.0 Prostatitis Acute Bacterial 05/21/2009 SOFIA FACILITIES ADMINISTRATOR, LASHAY S 601.0 Prostatitis Acute Bacterial 05/21/2009 HALEY PHELANM, KRYSTLE 601.0 Prostatitis Acute Bacterial 05/21/2009 MADKuldeep FACILITIES ADMINISTRATOR, RAJIV L 601.0 Prostatitis Acute Bacterial 05/21/2009 SOFIA FACILITIES ADMINISTRATOR, LASHAY S 601.0 Prostatitis Acute Bacterial 02/19/2010 LOPEZ DO, PARADISE K 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 02/19/2010 LOPEZ DO, PARADISE K 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 02/19/2010 SOFIA FACILITIES ADMINISTRATOR, LASHAY S 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 02/19/2010 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 02/19/2010 LOPEZ DO, PARADISE K 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 02/19/2010 LOPEZ DO, PARADISE K 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 02/19/2010 LOPEZ DO, PARADISE K 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 02/19/2010 SOFIA FACILITIES ADMINISTRATOR, LASHAY S 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 02/19/2010 SOFIA FACILITIES ADMINISTRATOR, LASHAY S 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 02/19/2010 ESVIN LINDA MD 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 02/19/2010 SOFIA FACILITIES ADMINISTRATOR, LASHAY S 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 02/19/2010 SOFIA FACILITIES ADMINISTRATOR, LASHAY S 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 02/19/2010 SOFIA FACILITIES ADMINISTRATOR, LASHAY S 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 02/19/2010 SOFIA FACILITIES ADMINISTRATOR, LASHAY S 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 02/19/2010 SOFIA FACILITIES ADMINISTRATOR, LASHAY S 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 02/19/2010 SOFIA FACILITIES ADMINISTRATOR, LASHAY S 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 02/19/2010 HALEY DPM, KRYSTLE 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 02/19/2010 MADL FACILITIES ADMINISTRATOR, RAJIV L 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 02/19/2010 SOFIA FACILITIES ADMINISTRATOR, LASHAY S 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 06/22/2010 LOPEZ DO, PARADISE K 788.1 Dysuria 06/22/2010 LOEPZ DO, PARADISE K 788.1 Dysuria 06/22/2010 SOFIA FACILITIES ADMINISTRATOR, LASHAY S 788.1 Dysuria 06/22/2010 788.1 Dysuria 06/22/2010 LOPEZ DO, PARADISE K 788.1 Dysuria 06/22/2010 LOPEZ DO, PARADISE K 788.1 Dysuria 06/22/2010 LOPEZ DO, PARADISE K 788.1 Dysuria 06/22/2010 SOFIA FACILITIES ADMINISTRATOR, LASHAY S 788.1 Dysuria 06/22/2010 SOFIA FACILITIES ADMINISTRATOR, LASHAY S 788.1 Dysuria 06/22/2010 ESVIN LINDA MD 788.1 Dysuria 06/22/2010 SOFIA FACILITIES ADMINISTRATOR, LASHAY S 788.1 Dysuria 06/22/2010 SOFIA FACILITIES ADMINISTRATOR, LASHAY S 788.1 Dysuria 06/22/2010 SOFIA FACILITIES ADMINISTRATOR, LASHAY S 788.1 Dysuria 06/22/2010 SOFIA FACILITIES ADMINISTRATOR, LASHAY S 788.1 Dysuria 06/22/2010 SOFIA FACILITIES ADMINISTRATOR, LASHAY S 788.1 Dysuria 06/22/2010 SOFIA FACILITIES ADMINISTRATOR, LASHAY S 788.1 Dysuria 06/22/2010 HALEY DPM, KRYSTLE 788.1 Dysuria 06/22/2010 MADL FACILITIES ADMINISTRATOR, RAJIV L 788.1 Dysuria 06/22/2010 SOFIA FACILITIES ADMINISTRATOR, LASHAY S 788.1 Dysuria 06/29/2010 LOPEZ DO, [...] Respiratory Infections Of Unspecified Site 06/29/2010 SOFIA CHILDS, LASHAY S V70.0 GENERAL MEDICAL EXAM, ROUTINE, [...] Respiratory Infections Of Unspecified Site 06/29/2010 SOFIA FACILITIES ADMINISTRATOR, LASHAY S V70.0 GENERAL MEDICAL EXAM, ROUTINE, AT HEALTH CARE FACILITY 06/29/2010 SOFIA FACILITIES ADMINISTRATOR, LASHAY S 465.9 Acute Upper Respiratory Infections Of Unspecified Site 06/29/2010 SOFIA FACILITIES ADMINISTRATOR, LASHAY S V70.0 GENERAL MEDICAL EXAM, ROUTINE, AT HEALTH CARE FACILITY 06/29/2010 ESVIN LINDA MD 465.9 Acute Upper Respiratory Infections Of Unspecified Site 06/29/2010 ESVIN LINDA MD V70.0 GENERAL MEDICAL EXAM, ROUTINE, AT HEALTH CARE FACILITY 06/29/2010 SOFIA FACILITIES ADMINISTRATOR, LASHAY S 465.9 Acute Upper Respiratory Infections Of Unspecified Site 06/29/2010 SOFIA FACILITIES ADMINISTRATOR, LASHAY S V70.0 GENERAL MEDICAL EXAM, ROUTINE, AT HEALTH CARE FACILITY 06/29/2010 SOFIA FACILITIES ADMINISTRATOR, LASHAY S 465.9 Acute Upper Respiratory Infections Of Unspecified Site 06/29/2010 SOFIA FACILITIES ADMINISTRATOR, LASHAY S V70.0 GENERAL MEDICAL EXAM, ROUTINE, AT HEALTH CARE FACILITY 06/29/2010 SOFIA FACILITIES ADMINISTRATOR, LASHAY S 465.9 Acute Upper Respiratory Infections Of Unspecified Site 06/29/2010 SOFIA FACILITIES ADMINISTRATOR, LASHAY S V70.0 GENERAL MEDICAL EXAM, ROUTINE, AT HEALTH CARE FACILITY 06/29/2010 SOFIA FACILITIES ADMINISTRATOR, LASHAY S 465.9 Acute Upper Respiratory Infections Of Unspecified Site 06/29/2010 SOFIA FACILITIES ADMINISTRATOR, LASHAY S V70.0 GENERAL MEDICAL EXAM, ROUTINE, AT HEALTH CARE FACILITY 06/29/2010 SOFIA FACILITIES ADMINISTRATOR, LASHAY S 465.9 Acute Upper Respiratory Infections Of Unspecified Site 06/29/2010 SOFIA FACILITIES ADMINISTRATOR, LASHAY S V70.0 GENERAL MEDICAL EXAM, ROUTINE, AT HEALTH CARE FACILITY 06/29/2010 SOFIA FACILITIES ADMINISTRATOR, LASHAY S 465.9 Acute Upper Respiratory Infections Of Unspecified Site 06/29/2010 SOFIA FACILITIES ADMINISTRATOR, LASHAY S V70.0 GENERAL MEDICAL EXAM, ROUTINE, AT HEALTH CARE FACILITY 06/29/2010 HALEY DPM, KRYSTLE 465.9 Acute Upper Respiratory Infections Of Unspecified Site 06/29/2010 HALEY DPM, KRYSTLE V70.0 GENERAL MEDICAL EXAM, ROUTINE, AT HEALTH CARE FACILITY 06/29/2010 MADL FACILITIES ADMINISTRATOR, RAJIV L 465.9 Acute Upper Respiratory Infections Of Unspecified Site 06/29/2010 MADL FACILITIES ADMINISTRATOR, RAJIV L V70.0 GENERAL MEDICAL EXAM, ROUTINE, AT HEALTH CARE FACILITY 06/29/2010 SOFIA FACILITIES ADMINISTRATOR, LASHAY S 465.9 Acute Upper Respiratory Infections Of Unspecified Site 06/29/2010 SOFIA FACILITIES ADMINISTRATOR, LASHAY S V70.0 GENERAL MEDICAL EXAM, ROUTINE, AT HEALTH CARE FACILITY 07/06/2010 LOPEZ DO, PARADISE K 702.0 Actinic Keratosis 07/06/2010 LOPEZ DO, PARADISE K 702.0 Actinic Keratosis 07/06/2010 SOFIA FACILITIES ADMINISTRATOR, LASHAY S 702.0 Actinic Keratosis 07/06/2010 702.0 Actinic Keratosis 07/06/2010 LOPEZ DO, PARADISE K 702.0 Actinic Keratosis 07/06/2010 LOPEZ DO, PARADISE K 702.0 Actinic Keratosis 07/06/2010 LOPEZ DO, PARADISE K 702.0 Actinic Keratosis 07/06/2010 SOFIA FACILITIES ADMINISTRATOR, LASHAY S 702.0 Actinic Keratosis 07/06/2010 SOFIA FACILITIES ADMINISTRATOR, LASHAY S 702.0 Actinic Keratosis 07/06/2010 ALEXEI WELLER, ESVIN 702.0 Actinic Keratosis 07/06/2010 SOFIA FACILITIES ADMINISTRATOR, LASHAY S 702.0 Actinic Keratosis 07/06/2010 SOFIA FACILITIES ADMINISTRATOR, LASHAY S 702.0 Actinic Keratosis 07/06/2010 SOFIA FACILITIES ADMINISTRATOR, LASHAY S 702.0 Actinic Keratosis 07/06/2010 SOFIA FACILITIES ADMINISTRATOR, LASHAY S 702.0 Actinic Keratosis 07/06/2010 SOFIA FACILITIES ADMINISTRATOR, LASHAY S 702.0 Actinic Keratosis 07/06/2010 SOFIA FACILITIES ADMINISTRATOR, LASHAY S 702.0 Actinic Keratosis 07/06/2010 KRYSTLE MAN DPM 702.0 Actinic Keratosis 07/06/2010 MAGDALENOL FACILITIES ADMINISTRATOR, RAJIV L 702.0 Actinic Keratosis 07/06/2010 SOFIA FACILITIES ADMINISTRATOR, LASHAY S 702.0 Actinic Keratosis 09/29/2010 Ot 530.81 ESOPHAGEAL REFLUX 09/29/2010 Ot 553.3 DIAPHRAGMATIC HERNIA 09/29/2010 Ot 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 09/29/2010 Ot 709.9 SKIN DISORDER NOS 09/29/2010 Ot V76.51 SCREEN MAL NEOP-COLON 06/15/2011 PARADISE LOPEZ DO K 729.1 Myalgia And Myositis Unspecified 06/15/2011 PARADISE LOPEZ DO K 729.1 Myalgia And Myositis Unspecified 06/15/2011 SOFIA FACILITIES ADMINISTRATOR, LASHAY S 729.1 Myalgia And Myositis Unspecified 06/15/2011 729.1 Myalgia And Myositis Unspecified 06/15/2011 PARADISE LOPEZ DO K 729.1 Myalgia And Myositis Unspecified 06/15/2011 DANIELA LOPEZ DOA K 729.1 Myalgia And Myositis Unspecified 06/15/2011 DANIELA LOPEZ DOA K 729.1 Myalgia And Myositis Unspecified 06/15/2011 SOFIA FACILITIES ADMINISTRATOR, LASHAY S 729.1 Myalgia And Myositis Unspecified 06/15/2011 SOFIA FACILITIES ADMINISTRATOR, LASHAY S 729.1 Myalgia And Myositis Unspecified 06/15/2011 ALEXEI WELLER, ESVIN 729.1 Myalgia And Myositis Unspecified 06/15/2011 SOFIA FACILITIES ADMINISTRATOR, LASHAY S 729.1 Myalgia And Myositis Unspecified 06/15/2011 SOFIA FACILITIES ADMINISTRATOR, LASHAY S 729.1 Myalgia And Myositis Unspecified 06/15/2011 SOFIA FACILITIES ADMINISTRATOR, LASHAY S 729.1 Myalgia And Myositis Unspecified 06/15/2011 SOFIA FACILITIES ADMINISTRATOR, LASHAY S 729.1 Myalgia And Myositis Unspecified 06/15/2011 SOFIA FACILITIES ADMINISTRATOR, LASHAY S 729.1 Myalgia And Myositis Unspecified 06/15/2011 SOFIA FACILITIES ADMINISTRATOR, LASHAY S 729.1 Myalgia And Myositis Unspecified 06/15/2011 HALEY DPM, KRYSTLE 729.1 Myalgia And Myositis Unspecified 06/15/2011 MADL FACILITIES ADMINISTRATOR, RAJIV L 729.1 Myalgia And Myositis Unspecified 06/15/2011 SOFIA FACILITIES ADMINISTRATOR, LASHAY S 729.1 Myalgia And Myositis Unspecified 07/27/2011 LOPEZ DO, PARADISE K 461.9 Sinusitis Acute 07/27/2011 LOPEZ DO, PARADISE K 466.0 Bronchitis, Acute 07/27/2011 LOPEZ DO, PARADISE K 461.9 Sinusitis Acute 07/27/2011 LOPEZ DO, PARADISE K 466.0 Bronchitis, Acute 07/27/2011 SOFIA FACILITIES ADMINISTRATOR, LASHAY S 461.9 Sinusitis Acute 07/27/2011 SOFIA FACILITIES ADMINISTRATOR, LASHAY S 466.0 Bronchitis, Acute 07/27/2011 461.9 Sinusitis Acute 07/27/2011 466.0 Bronchitis, Acute 07/27/2011 LOPEZ DO, PARADISE K 461.9 Sinusitis Acute 07/27/2011 LOPEZ DO, PARADISE K 466.0 Bronchitis, Acute 07/27/2011 LOPEZ DO, PARADISE K 461.9 Sinusitis Acute 07/27/2011 LOPEZ DO, PARADISE K 466.0 Bronchitis, Acute 07/27/2011 LOPEZ DO, PARADISE K 461.9 Sinusitis Acute 07/27/2011 LOPEZ DO, PARADISE K 466.0 Bronchitis, Acute 07/27/2011 SOFIA FACILITIES ADMINISTRATOR, LASHAY S 461.9 Sinusitis Acute 07/27/2011 OSFIA FACILITIES ADMINISTRATOR, LASHAY S 466.0 Bronchitis, Acute 07/27/2011 SOFIA FACILITIES ADMINISTRATOR, LASHAY S 461.9 Sinusitis Acute 07/27/2011 SOFIA FACILITIES ADMINISTRATOR, LASHAY S 466.0 Bronchitis, Acute 07/27/2011 ESVIN LINDA MD 461.9 Sinusitis Acute 07/27/2011 ESVIN LINDA MD 466.0 Bronchitis, Acute 07/27/2011 SOFIA FACILITIES ADMINISTRATOR, LASHAY S 461.9 Sinusitis Acute 07/27/2011 SOFIA FACILITIES ADMINISTRATOR, LASHAY S 466.0 Bronchitis, Acute 07/27/2011 SOFIA FACILITIES ADMINISTRATOR, LASHAY S 461.9 Sinusitis Acute 07/27/2011 SOFIA FACILITIES ADMINISTRATOR, LASHAY S 466.0 Bronchitis, Acute 07/27/2011 SOFIA FACILITIES ADMINISTRATOR, LASHAY S 461.9 Sinusitis Acute 07/27/2011 SOFIA FACILITIES ADMINISTRATOR, LASHAY S 466.0 Bronchitis, Acute 07/27/2011 SOFIA FACILITIES ADMINISTRATOR, LASHAY S 461.9 Sinusitis Acute 07/27/2011 SOFIA FACILITIES ADMINISTRATOR, LASHAY S 466.0 Bronchitis, Acute 07/27/2011 SOFIA FACILITIES ADMINISTRATOR, LASHAY S 461.9 Sinusitis Acute 07/27/2011 SOFIA FACILITIES ADMINISTRATOR, LASHAY S 466.0 Bronchitis, Acute 07/27/2011 SOFIA FACILITIES ADMINISTRATOR, LASHAY S 461.9 Sinusitis Acute 07/27/2011 SOFIA FACILITIES ADMINISTRATOR, LASHAY S 466.0 Bronchitis, Acute 07/27/2011 HALEY DPM, KRYSTLE 461.9 Sinusitis Acute 07/27/2011 HALEY DPM, KRYSTLE 466.0 Bronchitis, Acute 07/27/2011 MADL FACILITIES ADMINISTRATOR, RAJIV L 461.9 Sinusitis Acute 07/27/2011 MADL FACILITIES ADMINISTRATOR, RAJIV L 466.0 Bronchitis, Acute 07/27/2011 SOFIA FACILITIES ADMINISTRATOR, LASHAY S 461.9 Sinusitis Acute 07/27/2011 SOFIA FACILITIES ADMINISTRATOR, LASHAY S 466.0 Bronchitis, Acute 08/20/2011 LOPEZ DO, PARADISE K 455.6 UNSPECIFIED HEMORRHOIDS WITHOUT COMPLICATION 08/20/2011 LOPEZ DO, APRADISE K 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 AND OTHER LOWER URINARY TRACT SYMPTOMS (LUTS) 08/20/2011 LOPEZ DO, PARADISE K 455.6 UNSPECIFIED HEMORRHOIDS WITHOUT COMPLICATION 08/20/2011 LOPEZ DO, PARADISE K 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 AND OTHER LOWER URINARY TRACT SYMPTOMS (LUTS) 08/20/2011 SOFIA FACILITIES ADMINISTRATOR, LASHAY S 455.6 UNSPECIFIED HEMORRHOIDS WITHOUT COMPLICATION 08/20/2011 SOFIA FACILITIES ADMINISTRATOR, LASHAY S 600.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 (BENIGN) OF PROSTATE [...] LOWER URINARY TRACT SYMPTOMS (LUTS) 08/20/2011 SOFIA FACILITIES ADMINISTRATOR, LASHAY S 455.6 UNSPECIFIED HEMORRHOIDS WITHOUT COMPLICATION 08/20/2011 SOFIA FACILITIES ADMINISTRATOR, LASHAY S 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 AND OTHER LOWER URINARY TRACT SYMPTOMS (LUTS) 08/20/2011 SOFIA FACILITIES ADMINISTRATOR, LASHAY S 455.6 UNSPECIFIED HEMORRHOIDS WITHOUT COMPLICATION 08/20/2011 SOFIA FACILITIES ADMINISTRATOR, LASHAY S 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 AND OTHER LOWER URINARY TRACT SYMPTOMS (LUTS) 08/20/2011 ESVIN LINDA MD 455.6 UNSPECIFIED HEMORRHOIDS WITHOUT COMPLICATION 08/20/2011 ESVIN LINDA MD 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 AND OTHER LOWER URINARY TRACT SYMPTOMS (LUTS) 08/20/2011 SOFIA FACILITIES ADMINISTRATOR, LASHAY S 455.6 UNSPECIFIED HEMORRHOIDS WITHOUT COMPLICATION 08/20/2011 SOFIA FACILITIES ADMINISTRATOR, LASHAY S 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 AND OTHER LOWER URINARY TRACT SYMPTOMS (LUTS) 08/20/2011 SOFIA FACILITIES ADMINISTRATOR, LASHAY S 455.6 UNSPECIFIED HEMORRHOIDS WITHOUT COMPLICATION 08/20/2011 SOFIA FACILITIES ADMINISTRATOR, LASHAY S 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 AND OTHER LOWER URINARY TRACT SYMPTOMS (LUTS) 08/20/2011 SOFIA FACILITIES ADMINISTRATOR, LASHAY S 455.6 UNSPECIFIED HEMORRHOIDS WITHOUT COMPLICATION 08/20/2011 SOFIA FACILITIES ADMINISTRATOR, LASHAY S 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 AND OTHER LOWER URINARY TRACT SYMPTOMS (LUTS) 08/20/2011 SOFIA FACILITIES ADMINISTRATOR, LASHAY S 455.6 UNSPECIFIED HEMORRHOIDS WITHOUT COMPLICATION 08/20/2011 SOFIA FACILITIES ADMINISTRATOR, LASHAY S 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 AND OTHER LOWER URINARY TRACT SYMPTOMS (LUTS) 08/20/2011 SOFIA FACILITIES ADMINISTRATOR, LASHAY S 455.6 UNSPECIFIED HEMORRHOIDS WITHOUT COMPLICATION 08/20/2011 SOFIA FACILITIES ADMINISTRATOR, LASHAY S 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 AND OTHER LOWER URINARY TRACT SYMPTOMS (LUTS) 08/20/2011 SOFIA FACILITIES ADMINISTRATOR, LASHAY S 455.6 UNSPECIFIED HEMORRHOIDS WITHOUT COMPLICATION 08/20/2011 SOFIA FACILITIES ADMINISTRATOR, LASHAY S 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 AND OTHER LOWER URINARY TRACT SYMPTOMS (LUTS) 08/20/2011 HALEY DPM, KRYSTLE 455.6 UNSPECIFIED HEMORRHOIDS WITHOUT COMPLICATION 08/20/2011 HALEY DPM, KRYSTLE 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 AND OTHER LOWER URINARY TRACT SYMPTOMS (LUTS) 08/20/2011 MADL FACILITIES ADMINISTRATOR, RAJIV L 455.6 UNSPECIFIED HEMORRHOIDS WITHOUT COMPLICATION 08/20/2011 MADL FACILITIES ADMINISTRATOR, RAJIV L 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 AND OTHER LOWER URINARY TRACT SYMPTOMS (LUTS) 08/20/2011 SOFIA CHILDS, LASHAY S 455.6 UNSPECIFIED HEMORRHOIDS WITHOUT COMPLICATION 08/20/2011 SOFIA FACILITIES ADMINISTRATOR, LASHAY S 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 AND OTHER LOWER URINARY TRACT SYMPTOMS (LUTS) 10/28/2011 LOPEZ DO, PARADISE K 558.9 OTHER AND UNSPECIFIED NONINFECTIOUS GASTROENTERITIS AND COLITIS 10/28/2011 LOPEZ DO, PARADISE K 564.00 CONSTIPATION 10/28/2011 LOPEZ DO, PARADISE K 558.9 OTHER AND UNSPECIFIED NONINFECTIOUS GASTROENTERITIS AND COLITIS 10/28/2011 LOPEZ DO, PARADISE K 564.00 CONSTIPATION 10/28/2011 SOFIAANTHONY CHILDS LASHAY S 558.9 OTHER AND UNSPECIFIED NONINFECTIOUS GASTROENTERITIS AND COLITIS 10/28/2011 SOFIA FACILITIES ADMINISTRATOR, LASHAY S 564.00 CONSTIPATION 10/28/2011 558.9 OTHER [...] ESVIN LINDA MD 564.00 CONSTIPATION 10/28/2011 SOFIA CHILDS LASHAY S 558.9 OTHER AND UNSPECIFIED NONINFECTIOUS GASTROENTERITIS AND COLITIS 10/28/2011 SOFIA CHILDS LASHAY S 564.00 CONSTIPATION 10/28/2011 SOFIA CHILDS LASHAY S 558.9 OTHER AND UNSPECIFIED NONINFECTIOUS GASTROENTERITIS AND COLITIS 10/28/2011 SOFIA FACILITIES ADMINISTRATOR, LASHAY S 564.00 CONSTIPATION 10/28/2011 SOFIA CHILDS LASHAY S 558.9 OTHER AND UNSPECIFIED NONINFECTIOUS GASTROENTERITIS AND COLITIS 10/28/2011 SOFIA FACILITIES ADMINISTRATOR, LASHAY S 564.00 CONSTIPATION 10/28/2011 SOFIA CHILDS LASHAY S 558.9 OTHER AND UNSPECIFIED NONINFECTIOUS GASTROENTERITIS AND COLITIS 10/28/2011 SOFIA FACILITIES ADMINISTRATOR, LASHAY S 564.00 CONSTIPATION 10/28/2011 SOFIA FACILITIES ADMINISTRATOR, LASHAY S 558.9 OTHER AND UNSPECIFIED NONINFECTIOUS GASTROENTERITIS AND COLITIS 10/28/2011 SOFAI FACILITIES ADMINISTRATOR, LASHAY S 564.00 CONSTIPATION 10/28/2011 SOFIA FACILITIES ADMINISTRATOR, LASHAY S 558.9 OTHER AND UNSPECIFIED NONINFECTIOUS GASTROENTERITIS AND COLITIS 10/28/2011 SOFIA FACILITIES ADMINISTRATOR, LASHAY S 564.00 CONSTIPATION 10/28/2011 HALEY DPM, KRYSTLE 558.9 OTHER AND UNSPECIFIED NONINFECTIOUS GASTROENTERITIS AND COLITIS 10/28/2011 HALEY DPM, KRYSTLE 564.00 CONSTIPATION 10/28/2011 MADL FACILITIES ADMINISTRATOR, RAJIV L 558.9 OTHER AND UNSPECIFIED NONINFECTIOUS GASTROENTERITIS AND COLITIS 10/28/2011 MADL FACILITIES ADMINISTRATOR, RAJIV L 564.00 CONSTIPATION 10/28/2011 SOFIA FACILITIES ADMINISTRATOR, LASHAY S 558.9 OTHER AND UNSPECIFIED NONINFECTIOUS GASTROENTERITIS AND COLITIS 10/28/2011 SOFIA FACILITIES ADMINISTRATOR, LASHAY S 564.00 CONSTIPATION 12/09/2011 LOPEZ DO, PARADISE K 338.29 CHRONIC PAIN 12/09/2011 LOPEZ DO, PARADISE K 338.29 CHRONIC PAIN 12/09/2011 SOFIA FACILITIES ADMINISTRATOR, LASHAY S 338.29 CHRONIC PAIN 12/09/2011 338.29 CHRONIC PAIN 12/09/2011 LOPEZ DO, PARADISE K 338.29 CHRONIC PAIN 12/09/2011 LOPEZ DO, PARADISE K 338.29 CHRONIC PAIN 12/09/2011 LOPEZ DO, PARADISE K 338.29 CHRONIC PAIN 12/09/2011 SOFIA FACILITIES ADMINISTRATOR, LASHAY S 338.29 CHRONIC PAIN 12/09/2011 SOFIA FACILITIES ADMINISTRATOR, LASHAY S 338.29 CHRONIC PAIN 12/09/2011 ESVIN LINDA MD 338.29 CHRONIC PAIN 12/09/2011 SOFIA FACILITIES ADMINISTRATOR, LASHAY S 338.29 CHRONIC PAIN 12/09/2011 SOFIA FACILITIES ADMINISTRATOR, LASHAY S 338.29 CHRONIC PAIN 12/09/2011 SOFIA FACILITIES ADMINISTRATOR, LASHAY S 338.29 CHRONIC PAIN 12/09/2011 SOFIA FACILITIES ADMINISTRATOR, LASHAY S 338.29 CHRONIC PAIN 12/09/2011 SOFIA FACILITIES ADMINISTRATOR, LASHAY S 338.29 CHRONIC PAIN 12/09/2011 SOFIA FACILITIES ADMINISTRATOR, LASHAY S 338.29 CHRONIC PAIN 12/09/2011 HALEY DPM, KRYSTLE 338.29 CHRONIC PAIN 12/09/2011 FIORDALIZA FACILITIES ADMINISTRATOR, RAJIV Light 338.29 CHRONIC PAIN 12/09/2011 SOFIA FACILITIES ADMINISTRATOR, LASHAY S 338.29 CHRONIC PAIN 12/23/2011 LOPEZ DO, PARADISE K 723.1 CERVICALGIA 12/23/2011 LOPEZ DO, PARADISE K 785.6 ENLARGEMENT OF LYMPH NODES 12/23/2011 LOPEZ DO, PARADISE K 723.1 CERVICALGIA 12/23/2011 LOPEZ DO, PARADISE K 785.6 ENLARGEMENT OF LYMPH NODES 12/23/2011 SOFIA FACILITIES ADMINISTRATOR, LASHAY S 723.1 CERVICALGIA 12/23/2011 SOFIA FACILITIES ADMINISTRATOR, LASHAY S 785.6 ENLARGEMENT OF LYMPH NODES [...] 785.6 ENLARGEMENT OF LYMPH NODES 12/23/2011 SOFIA FACILITIES ADMINISTRATOR, LASHAY S 723.1 CERVICALGIA 12/23/2011 SOFIA FACILITIES ADMINISTRATOR, LASHAY S 785.6 ENLARGEMENT OF LYMPH NODES 12/23/2011 SOFIA FACILITIES ADMINISTRATOR, LASHAY S 723.1 CERVICALGIA 12/23/2011 SOFIA FACILITIES ADMINISTRATOR, LASHAY S 785.6 ENLARGEMENT OF LYMPH NODES 12/23/2011 ESVIN LINDA MD 723.1 CERVICALGIA 12/23/2011 ESVIN LINDA MD 785.6 ENLARGEMENT OF LYMPH NODES 12/23/2011 SOFIA FACILITIES ADMINISTRATOR, LASHAY S 723.1 CERVICALGIA 12/23/2011 SOFIA FACILITIES ADMINISTRATOR, LASHAY S 785.6 ENLARGEMENT OF LYMPH NODES 12/23/2011 SOFIA FACILITIES ADMINISTRATOR, LASHAY S 723.1 CERVICALGIA 12/23/2011 SOFIA FACILITIES ADMINISTRATOR, LASHAY S 785.6 ENLARGEMENT OF LYMPH NODES 12/23/2011 SOFIA FACILITIES ADMINISTRATOR, LASHAY S 723.1 CERVICALGIA 12/23/2011 SOFIA FACILITIES ADMINISTRATOR, LASHAY S 785.6 ENLARGEMENT OF LYMPH NODES 12/23/2011 SOFIA FACILITIES ADMINISTRATOR, LASHAY S 723.1 CERVICALGIA 12/23/2011 SOFIA FACILITIES ADMINISTRATOR, LASHAY S 785.6 ENLARGEMENT OF LYMPH NODES 12/23/2011 SOFIA FACILITIES ADMINISTRATOR, LASHAY S 723.1 CERVICALGIA 12/23/2011 SOFIA FACILITIES ADMINISTRATOR, LASHAY S 785.6 ENLARGEMENT OF LYMPH NODES 12/23/2011 SOFIA FACILITIES ADMINISTRATOR, LASHAY S 723.1 CERVICALGIA 12/23/2011 SOFIA FACILITIES ADMINISTRATOR, LASHAY S 785.6 ENLARGEMENT OF LYMPH NODES 12/23/2011 HALEY DPM, KRYSTLE 723.1 CERVICALGIA 12/23/2011 HALEY DPM, KRYSTLE 785.6 ENLARGEMENT OF LYMPH NODES 12/23/2011 MADL FACILITIES ADMINISTRATOR, RAJIV L 723.1 CERVICALGIA 12/23/2011 MADL FACILITIES ADMINISTRATOR, RAJIV L 785.6 ENLARGEMENT OF LYMPH NODES 12/23/2011 SOFIA FACILITIES ADMINISTRATOR, LASHAY S 723.1 CERVICALGIA 12/23/2011 SOFIA FACILITIES ADMINISTRATOR, LASHAY S 785.6 ENLARGEMENT OF LYMPH NODES 03/14/2012 LOPEZ DO, PARADISE K 389.9 UNSPECIFIED HEARING LOSS 03/14/2012 LOPEZ DO, PARADISE K 690.10 SEBORRHEIC DERMATITIS UNSPECIFIED 03/14/2012 LOPEZ DO, PARADISE K 389.9 UNSPECIFIED HEARING LOSS 03/14/2012 LOPEZ DO, PARADISE K 690.10 SEBORRHEIC DERMATITIS UNSPECIFIED 03/14/2012 SOFIA FACILITIES ADMINISTRATOR, LASHAY S 389.9 UNSPECIFIED HEARING LOSS 03/14/2012 SOFIA FACILITIES ADMINISTRATOR, LASHAY S 690.10 SEBORRHEIC DERMATITIS UNSPECIFIED 03/14/2012 [...] APRNA S 690.10 SEBORRHEIC DERMATITIS UNSPECIFIED 03/14/2012 SOFIA CHILDS LASHAY S 389.9 UNSPECIFIED HEARING LOSS 03/14/2012 ARNAV BLACK APRNNDA S 690.10 SEBORRHEIC DERMATITIS UNSPECIFIED 03/14/2012 SOFIA CHILDS LASHAY S 389.9 UNSPECIFIED HEARING LOSS 03/14/2012 SOFIA CHILDS LASHAY S 690.10 SEBORRHEIC DERMATITIS UNSPECIFIED 03/14/2012 SOFIA CHILDS LASHAY S 389.9 UNSPECIFIED HEARING LOSS 03/14/2012 ARNAV BLACK APRNNDA S 690.10 SEBORRHEIC DERMATITIS UNSPECIFIED 03/14/2012 SOFIA FACILITIES ADMINISTRATOR, LASHAY S 389.9 UNSPECIFIED HEARING LOSS 03/14/2012 SOFIA FACILITIES ADMINISTRATOR, LASHAY S 690.10 SEBORRHEIC DERMATITIS UNSPECIFIED 03/14/2012 HALEY DPM, KRYSTLE 389.9 UNSPECIFIED HEARING LOSS 03/14/2012 HALEY DPM, KRYSTLE 690.10 SEBORRHEIC DERMATITIS UNSPECIFIED 03/14/2012 MADL FACILITIES ADMINISTRATOR, RAJIV L 389.9 UNSPECIFIED HEARING LOSS 03/14/2012 MADL FACILITIES ADMINISTRATOR, RAJIV L 690.10 SEBORRHEIC DERMATITIS UNSPECIFIED 03/14/2012 SOFIA FACILITIES ADMINISTRATOR, LASHAY S 389.9 UNSPECIFIED HEARING LOSS 03/14/2012 SOFIA FACILITIES ADMINISTRATOR, LASHAY S 690.10 SEBORRHEIC DERMATITIS UNSPECIFIED 07/11/2012 PARADISE LOPEZ DO K 493.92 ASTHMA WITH ACUTE EXACERBATION 07/11/2012 PARADISE LOPEZ DO K 493.92 ASTHMA WITH ACUTE EXACERBATION 07/11/2012 SOFIA CHILDS LASHAY S 493.92 ASTHMA WITH ACUTE EXACERBATION 07/11/2012 493.92 ASTHMA WITH ACUTE EXACERBATION 07/11/2012 PARADISE LOPEZ DO K 493.92 ASTHMA WITH ACUTE EXACERBATION 07/11/2012 PARADISE LOPEZ DO K 493.92 ASTHMA WITH ACUTE EXACERBATION 07/11/2012 PARADISE LOPEZ DO K 493.92 ASTHMA WITH ACUTE EXACERBATION 07/11/2012 SOFIA CHILDS LASHAY S 493.92 ASTHMA WITH ACUTE EXACERBATION 07/11/2012 SOFIA CHILDS LASHAY S 493.92 ASTHMA WITH ACUTE EXACERBATION 07/11/2012 ESVIN LINDA MD 493.92 ASTHMA WITH ACUTE EXACERBATION 07/11/2012 SOFIA FACILITIES ADMINISTRATOR, LASHAY S 493.92 ASTHMA WITH ACUTE EXACERBATION 07/11/2012 SOFIA FACILITIES ADMINISTRATOR, LASHAY S 493.92 ASTHMA WITH ACUTE EXACERBATION 07/11/2012 SOFIA FACILITIES ADMINISTRATOR, LASHAY S 493.92 ASTHMA WITH ACUTE EXACERBATION 07/11/2012 SOFIA FACILITIES ADMINISTRATOR, LASHAY S 493.92 ASTHMA WITH ACUTE EXACERBATION 07/11/2012 SOFIA FACILITIES ADMINISTRATOR, LASHAY S 493.92 ASTHMA WITH ACUTE EXACERBATION 07/11/2012 SOFIA FACILITIES ADMINISTRATOR, LASHAY S 493.92 ASTHMA WITH ACUTE EXACERBATION 07/11/2012 HALEY DPMKRYSTLE 493.92 ASTHMA WITH ACUTE EXACERBATION 07/11/2012 FIORDALIZA FACILITIES ADMINISTRATORRAJIV 493.92 ASTHMA WITH ACUTE EXACERBATION 07/11/2012 ARNAV BLACK APRNNDA S 493.92 ASTHMA WITH ACUTE EXACERBATION 08/07/2012 LOPEZ DO PARADISE K 729.2 NEURALGIA NEURITIS AND RADICULITIS UNSPECIFIED 08/07/2012 LOPEZ DO PARADISE K V05.8 ZOSTAVAX DX 08/07/2012 LOPEZ DO, PARADISE K 729.2 NEURALGIA NEURITIS AND RADICULITIS UNSPECIFIED 08/07/2012 LOPEZ DO, PARADISE K V05.8 ZOSTAVAX DX 08/07/2012 ARNAV BLACK APRNNDA S 729.2 NEURALGIA NEURITIS AND RADICULITIS UNSPECIFIED [...] PARADISE K V05.8 ZOSTAVAX DX 08/07/2012 SOFIA FACILITIES ADMINISTRATORARNAV AlmaguerNDA S 729.2 NEURALGIA NEURITIS AND RADICULITIS UNSPECIFIED 08/07/2012 ARNAV BLACK APRNNDA S V05.8 ZOSTAVAX DX 08/07/2012 SOFIA FACILITIES ADMINISTRATOR, LASHAY S 729.2 NEURALGIA NEURITIS AND RADICULITIS UNSPECIFIED 08/07/2012 BOB BLACK APRNA S V05.8 ZOSTAVAX DX 08/07/2012 ALEXEI WELLER, ESVIN 729.2 NEURALGIA NEURITIS AND RADICULITIS UNSPECIFIED 08/07/2012 ALEXEI WELLER, ESVIN V05.8 ZOSTAVAX DX 08/07/2012 SOFIA FACILITIES ADMINISTRATOR, LASHAY S 729.2 NEURALGIA NEURITIS AND RADICULITIS UNSPECIFIED 08/07/2012 SOFIA FACILITIES ADMINISTRATOR, LASHAY S V05.8 ZOSTAVAX DX 08/07/2012 SOFIA FACILITIES ADMINISTRATOR, LASHAY S 729.2 NEURALGIA NEURITIS AND RADICULITIS UNSPECIFIED 08/07/2012 SOFIA FACILITIES ADMINISTRATOR, LASHAY S V05.8 ZOSTAVAX DX 08/07/2012 SOFIA FACILITIES ADMINISTRATOR, LASHAY S 729.2 NEURALGIA NEURITIS AND RADICULITIS UNSPECIFIED 08/07/2012 SOFIA FACILITIES ADMINISTRATOR, LASHAY S V05.8 ZOSTAVAX DX 08/07/2012 SOFIA FACILITIES ADMINISTRATOR, LASHAY S 729.2 NEURALGIA NEURITIS AND RADICULITIS UNSPECIFIED 08/07/2012 SOFIA FACILITIES ADMINISTRATOR, LASHAY S V05.8 ZOSTAVAX DX 08/07/2012 SOFIA FACILITIES ADMINISTRATOR, LASHAY S 729.2 NEURALGIA NEURITIS AND RADICULITIS UNSPECIFIED 08/07/2012 SOFIA FACILITIES ADMINISTRATOR, LASHAY S V05.8 ZOSTAVAX DX 08/07/2012 SOFIA FACILITIES ADMINISTRATOR, LASHAY S 729.2 NEURALGIA NEURITIS AND RADICULITIS UNSPECIFIED 08/07/2012 SOFIA FACILITIES ADMINISTRATOR, LASHAY S V05.8 ZOSTAVAX DX 08/07/2012 HALEY DPM, KRYSTLE 729.2 NEURALGIA NEURITIS AND RADICULITIS UNSPECIFIED 08/07/2012 HALEY DPM, KRYSTLE V05.8 ZOSTAVAX DX 08/07/2012 MADL FACILITIES ADMINISTRATOR, RAJIV L 729.2 NEURALGIA NEURITIS AND RADICULITIS UNSPECIFIED 08/07/2012 MADL FACILITIES ADMINISTRATOR, RAJIV L V05.8 ZOSTAVAX DX 08/07/2012 SOFIA FACILITIES ADMINISTRATOR, LASHAY S 729.2 NEURALGIA NEURITIS AND RADICULITIS UNSPECIFIED 08/07/2012 SOFIA FACILITIES ADMINISTRATOR, LASHAY S V05.8 ZOSTAVAX DX 10/29/2012 Ot 487.1 FLU W RESP MANIFEST NEC 10/29/2012 Ot 786.2 COUGH 06/25/2013 LOPEZ DO, PARADISE K V04.81 FLU SHOT 06/25/2013 LOPEZ DO, PARADISE K V04.81 FLU SHOT 06/25/2013 LOPEZ DO, PARADISE K V04.81 FLU SHOT 06/25/2013 SOFIA FACILITIES ADMINISTRATOR, LASHAY S V04.81 FLU SHOT 06/25/2013 SOFIA FACILITIES ADMINISTRATOR, LASHAY S V04.81 FLU SHOT 06/25/2013 ESVIN LINDA MD V04.81 FLU SHOT 06/25/2013 SOFIA FACILITIES ADMINISTRATOR, LASHAY S V04.81 FLU SHOT 06/25/2013 SOFIA FACILITIES ADMINISTRATOR, LASHAY S V04.81 FLU SHOT 06/25/2013 SOFIA FACILITIES ADMINISTRATOR, LASHAY S V04.81 FLU SHOT 06/25/2013 SOFIA FACILITIES ADMINISTRATOR, LASHAY S V04.81 FLU SHOT 06/25/2013 SOFIA FACILITIES ADMINISTRATOR, LASHAY S V04.81 FLU SHOT 06/25/2013 SOFIA FACILITIES ADMINISTRATOR, LASHAY S V04.81 FLU SHOT 06/25/2013 HALEY DPM, KRYSTLE V04.81 FLU SHOT 06/25/2013 MADRAJIV Light APRN L V04.81 FLU SHOT 06/25/2013 SOFIA FACILITIES ADMINISTRATOR, LASHAY S V04.81 FLU SHOT 07/25/2013 LOPEZ DO, PARADISE K 786.2 COUGH 07/25/2013 LOPEZ DO, PARADISE K 786.2 COUGH 07/25/2013 SOFIA FACILITIES ADMINISTRATOR, LASHAY S 786.2 COUGH 07/25/2013 SOFIA FACILITIES ADMINISTRATOR, LASHAY S 786.2 COUGH 07/25/2013 ESVIN LINDA MD 786.2 COUGH 07/25/2013 SOFIA CHILDS, LASHAY S 786.2 COUGH 07/25/2013 SOFIA FACILITIES ADMINISTRATOR, LASHAY S 786.2 COUGH 07/25/2013 SOFIA FACILITIES ADMINISTRATOR, LASHAY S 786.2 COUGH 07/25/2013 SOFIA OLMOSN, LASHAY S 786.2 COUGH 07/25/2013 SOFIA FACILITIES ADMINISTRATOR, LASHAY S 786.2 COUGH 07/25/2013 SOFIA FACILITIES ADMINISTRATOR, LASHAY S 786.2 COUGH 07/25/2013 HALEY DPBrenda, KRYSTLE 786.2 COUGH 07/25/2013 MADL FACILITIES ADMINISTRATOR, RAJIV L 786.2 COUGH 07/25/2013 SOFIA FACILITIES ADMINISTRATOR, LASHAY S 786.2 COUGH 08/23/2013 LOPEZ DO, PARADISE K 338.11 PAIN - ACUTE PAIN DUE TO TRAUMA 08/23/2013 LOPEZ DO, PARADISE K 733.92 CHONDROMALACIA 08/23/2013 SOFIA FACILITIES ADMINISTRATOR, LASHAY S 338.11 PAIN - ACUTE PAIN DUE TO TRAUMA 08/23/2013 SOFIA FACILITIES ADMINISTRATOR, LASHAY S 733.92 CHONDROMALACIA 08/23/2013 SOFIA FACILITIES ADMINISTRATOR, LASHAY S 338.11 PAIN - ACUTE PAIN DUE TO TRAUMA 08/23/2013 SOFIA FACILITIES ADMINISTRATOR, LASHAY S 733.92 CHONDROMALACIA 08/23/2013 ESVIN LINDA MD 338.11 PAIN - ACUTE PAIN DUE TO TRAUMA 08/23/2013 ESVIN LINDA MD 733.92 CHONDROMALACIA 08/23/2013 SOFIA FACILITIES ADMINISTRATOR, LASHAY S 338.11 PAIN - ACUTE PAIN DUE TO TRAUMA 08/23/2013 SOFIA FACILITIES ADMINISTRATOR, LASHAY S 733.92 CHONDROMALACIA 08/23/2013 SOFIA FACILITIES ADMINISTRATOR, LASHAY S 338.11 PAIN - ACUTE PAIN DUE TO TRAUMA 08/23/2013 SOFIA FACILITIES ADMINISTRATOR, LASHAY S 733.92 CHONDROMALACIA 08/23/2013 SOFIA FACILITIES ADMINISTRATOR, LASHAY S 338.11 PAIN - ACUTE PAIN DUE TO TRAUMA 08/23/2013 SOFIA FACILITIES ADMINISTRATOR, LASHAY S 733.92 CHONDROMALACIA 08/23/2013 SOFIA FACILITIES ADMINISTRATOR, LASHAY S 338.11 PAIN - ACUTE PAIN DUE TO TRAUMA 08/23/2013 SOFIA FACILITIES ADMINISTRATOR, LASHAY S 733.92 CHONDROMALACIA 08/23/2013 SOFIA FACILITIES ADMINISTRATOR, LASHAY S 338.11 PAIN - ACUTE PAIN DUE TO TRAUMA 08/23/2013 SOFIA FACILITIES ADMINISTRATOR, LASHAY S 733.92 CHONDROMALACIA 08/23/2013 SOFIA CHILDS LASHAY S 338.11 PAIN - ACUTE PAIN DUE TO TRAUMA 08/23/2013 SOFIA CHILDS, LASHAY S 733.92 CHONDROMALACIA 08/23/2013 HALEY DPM, KRYSTLE 338.11 PAIN - ACUTE PAIN DUE TO TRAUMA 08/23/2013 HALEY DPM, KRYSTLE 733.92 CHONDROMALACIA 08/23/2013 MADL FACILITIES ADMINISTRATOR, RAJIV L 338.11 PAIN - ACUTE PAIN DUE TO TRAUMA 08/23/2013 MADL FACILITIES ADMINISTRATOR, RAJIV L 733.92 CHONDROMALACIA 08/23/2013 SOFIA CHILDS LASHAY S 338.11 PAIN - ACUTE PAIN DUE TO TRAUMA 08/23/2013 SOFIA CHILDS LASHAY S 733.92 CHONDROMALACIA 10/16/2013 ARNAV BLACK APRNNDA S 389.9 HEARING LOSS UNSPEC 10/16/2013 ARNAV BLACK APRNNDA S 729.5 PAIN- HAND 10/16/2013 ARNAV BLACK APRNNDA S 389.9 HEARING LOSS UNSPEC 10/16/2013 ARNAV BLACK APRNNDA S 729.5 PAIN- HAND 10/16/2013 ESVIN LINDA MD 389.9 HEARING LOSS UNSPEC 10/16/2013 ESVIN LINDA MD 729.5 PAIN- HAND 10/16/2013 SOFIA CHILDS LASHAY [...] S 389.9 HEARING LOSS UNSPEC 10/16/2013 SOFIA FACILITIES ADMINISTRATOR, LASHAY S 729.5 PAIN- HAND 10/16/2013 SOFIA FACILITIES ADMINISTRATOR, LASHAY S 389.9 HEARING LOSS UNSPEC 10/16/2013 SOFIA FACILITIES ADMINISTRATOR, LASHAY S 729.5 PAIN- HAND 10/16/2013 HALEY DPM, KRYSTLE 389.9 HEARING LOSS UNSPEC 10/16/2013 HALEY DPM, KRYSTLE 729.5 PAIN- HAND 10/16/2013 MADL FACILITIES ADMINISTRATOR, RAJIV L 389.9 HEARING LOSS UNSPEC 10/16/2013 MADL FACILITIES ADMINISTRATOR, RAJIV L 729.5 PAIN- HAND 10/16/2013 SOFIA FACILITIES ADMINISTRATOR, LASHAY S 389.9 HEARING LOSS UNSPEC 10/16/2013 SOFIA CHILDS LASHAY S 729.5 PAIN- HAND 02/22/2014 ESVIN LINDA MD 728.85 SPASM OF MUSCLE 02/22/2014 SOFIA FACILITIES ADMINISTRATOR, LASHAY S 728.85 SPASM OF MUSCLE 02/22/2014 SOFIA CHILDS LASHAY S 728.85 SPASM OF MUSCLE 02/22/2014 SOFIA FACILITIES ADMINISTRATOR, LASHAY S 728.85 SPASM OF MUSCLE 02/22/2014 SOFIA FACILITIES ADMINISTRATOR, LASHAY S 728.85 SPASM OF MUSCLE 02/22/2014 SOFIA FACILITIES ADMINISTRATOR, LASHAY S 728.85 SPASM OF MUSCLE 02/22/2014 SOFIA FACILITIES ADMINISTRATOR, LASHAY S 728.85 SPASM OF MUSCLE 02/22/2014 HALEY DPM, KRYSTLE 728.85 SPASM OF MUSCLE 02/22/2014 MAGDALENOL FACILITIES ADMINISTRATOR, RAJIV L 728.85 SPASM OF MUSCLE 02/22/2014 SOFIA FACILITIES ADMINISTRATOR, LASHAY S 728.85 SPASM OF MUSCLE 03/26/2014 SOFIA FACILITIES ADMINISTRATOR, LASHAY S 719.47 PAIN- FOOT 03/26/2014 SOFIA FACILITIES ADMINISTRATOR, LASHAY S 787.91 DIARRHEA 03/26/2014 SOFIA FACILITIES ADMINISTRATOR, LASHAY S 789.04 ABDOMINAL PAIN LEFT LOWER QUADRANT 03/26/2014 SOFIA FACILITIES ADMINISTRATOR, LASHAY S 719.47 PAIN- FOOT 03/26/2014 SOFIA CHILDS LASHAY S 787.91 DIARRHEA 03/26/2014 SOFIA FACILITIES ADMINISTRATOR, LASHAY S 789.04 ABDOMINAL PAIN LEFT LOWER QUADRANT 03/26/2014 SOFIA FACILITIES ADMINISTRATOR, LASHAY S 719.47 PAIN- FOOT 03/26/2014 SOFIA FACILITIES ADMINISTRATOR, LASHAY S 787.91 DIARRHEA 03/26/2014 SOFIA FACILITIES ADMINISTRATOR, LASHAY S 789.04 ABDOMINAL PAIN LEFT LOWER QUADRANT 03/26/2014 SOFIA FACILITIES ADMINISTRATOR, LASHAY S 719.47 PAIN- FOOT 03/26/2014 SOFIA FACILITIES ADMINISTRATOR, LASHAY S 787.91 DIARRHEA 03/26/2014 SOFIA FACILITIES ADMINISTRATOR, LASHAY S 789.04 ABDOMINAL PAIN LEFT LOWER QUADRANT 03/26/2014 SOFIA FACILITIES ADMINISTRATOR, LASHAY S 719.47 PAIN- FOOT 03/26/2014 SOFIA FACILITIES ADMINISTRATOR, LASHAY S 787.91 DIARRHEA 03/26/2014 SOFIA FACILITIES ADMINISTRATOR, LASHAY S 789.04 ABDOMINAL PAIN LEFT LOWER QUADRANT 03/26/2014 SOFIA FACILITIES ADMINISTRATOR, LASHAY S 719.47 PAIN- FOOT 03/26/2014 SOFIA FACILITIES ADMINISTRATOR, LASHAY S 787.91 DIARRHEA 03/26/2014 SOFIA FACILITIES ADMINISTRATOR, LASHAY S 789.04 ABDOMINAL PAIN LEFT LOWER QUADRANT 03/26/2014 HALEY DPM, KRYSTLE 719.47 PAIN- FOOT 03/26/2014 HALEY DPM, KRYSTLE 787.91 DIARRHEA 03/26/2014 HALEY DPM, KRYSTLE 789.04 ABDOMINAL PAIN LEFT LOWER QUADRANT 03/26/2014 MADL FACILITIES ADMINISTRATOR, RAJIV L 719.47 PAIN- FOOT 03/26/2014 MADL FACILITIES ADMINISTRATOR, RAJIV L 787.91 DIARRHEA 03/26/2014 MADL FACILITIES ADMINISTRATOR, RAJIV L 789.04 ABDOMINAL PAIN LEFT LOWER QUADRANT 03/26/2014 SOFIA FACILITIES ADMINISTRATOR, LASHAY S 719.47 PAIN- FOOT 03/26/2014 SOFIA FACILITIES ADMINISTRATOR, LASHAY S 787.91 DIARRHEA 03/26/2014 SOFIA FACILITIES ADMINISTRATOR, LASHAY S 789.04 ABDOMINAL PAIN LEFT LOWER QUADRANT 04/30/2014 SOFIA FACILITIES ADMINISTRATOR, LASHAY S 719.40 ARTHRAIGIA UNSPEC 04/30/2014 SOFIA FACILITIES ADMINISTRATOR, LASHAY S 719.40 ARTHRAIGIA UNSPEC 04/30/2014 SOFIA FACILITIES ADMINISTRATOR, LASHAY S 719.40 ARTHRAIGIA UNSPEC 04/30/2014 SOFIA FACILITIES ADMINISTRATOR, LASHAY S 719.40 ARTHRAIGIA UNSPEC 04/30/2014 SOFIA FACILITIES ADMINISTRATOR, LASHAY S 719.40 ARTHRAIGIA UNSPEC 04/30/2014 HALEY DPM, KRYSTLE 719.40 ARTHRAIGIA UNSPEC 04/30/2014 MADL FACILITIES ADMINISTRATOR, RAJIV L 719.40 ARTHRAIGIA UNSPEC 04/30/2014 SOFIA FACILITIES ADMINISTRATOR, LASHAY S 719.40 ARTHRAIGIA UNSPEC 06/26/2014 CAMILA WELLER, DANGELO A Ot 723.1 06/26/2014 CAMILA WELLER, DANGELO A Ot 847.0 06/26/2014 CAMILA WELLER, DANGELO A Ot 959.01 06/26/2014 CAMILA WELLER, DANGELO A Ot E000.8 06/26/2014 CAMILA WELLER, DANGELO A Ot E812.0 07/04/2014 SOFIA FACILITIES ADMINISTRATOR, LASHAY S 289.3 LYMPHADENITIS (PRIMARY) 07/04/2014 SOFIA FACILITIES ADMINISTRATOR, LASHAY S 339.20 POSTTRAUMATIC HEADACHE UNSPECIFIED 07/04/2014 SOFIA FACILITIES ADMINISTRATOR, LASHAY S V03.82 PPV23 (PNEUMOVAX) DX 07/04/2014 SOFIA FACILITIES ADMINISTRATOR, LASHAY S V06.1 TDAP DX 07/04/2014 SOFIA FACILITIES ADMINISTRATOR, LASHAY S 289.3 LYMPHADENITIS (PRIMARY) 07/04/2014 SOFIA FACILITIES ADMINISTRATOR, LASHAY S 339.20 POSTTRAUMATIC HEADACHE UNSPECIFIED 07/04/2014 SOFIA FACILITIES ADMINISTRATOR, LASHAY S V03.82 PPV23 (PNEUMOVAX) DX 07/04/2014 SOFIA FACILITIES ADMINISTRATOR, LASHAY S V06.1 TDAP DX 07/04/2014 SOFIA FACILITIES ADMINISTRATOR, LASHAY S 289.3 LYMPHADENITIS (PRIMARY) 07/04/2014 SOFIA FACILITIES ADMINISTRATOR, LASHAY S 339.20 POSTTRAUMATIC HEADACHE UNSPECIFIED 07/04/2014 SOFIA FACILITIES ADMINISTRATOR, LASHAY S V03.82 PPV23 (PNEUMOVAX) DX 07/04/2014 ARNAV BLACK APRNNDA S V06.1 TDAP DX 07/04/2014 HALEY DPM, KRYSTLE 289.3 LYMPHADENITIS (PRIMARY) 07/04/2014 HALEY DPM, KRYSTLE 339.20 POSTTRAUMATIC HEADACHE UNSPECIFIED 07/04/2014 HALEY DPM, KRYSTLE V03.82 PPV23 (PNEUMOVAX) DX 07/04/2014 HALEY DPM, KRYSTLE V06.1 TDAP DX 07/04/2014 MADL FACILITIES ADMINISTRATOR, RAJIV L 289.3 LYMPHADENITIS (PRIMARY) 07/04/2014 MADL FACILITIES ADMINISTRATOR, RAJIV L 339.20 POSTTRAUMATIC HEADACHE UNSPECIFIED 07/04/2014 MADL FACILITIES ADMINISTRATOR, RAJIV L V03.82 PPV23 (PNEUMOVAX) DX 07/04/2014 MADL FACILITIES ADMINISTRATOR, RAJIV L V06.1 TDAP DX 07/04/2014 LASHAY BLACK APRN S 289.3 LYMPHADENITIS (PRIMARY) 07/04/2014 BOB BLACK APRNA S 339.20 POSTTRAUMATIC HEADACHE UNSPECIFIED 07/04/2014 ARNAV BLACK APRNNDA S V03.82 PPV23 (PNEUMOVAX) DX 07/04/2014 ARNAV BLACK APRNNDA S V06.1 TDAP DX 07/30/2014 BOB BLACK APRNA S 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 07/30/2014 BOB BLACK APRNA S 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 07/30/2014 HALEY DPM, KRYSTLE 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 07/30/2014 MAGDALENOL FACILITIES ADMINISTRATOR, RAJIV L 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 07/30/2014 ARNAV BLACK APRNNDA S 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 07/31/2014 LASHAY BLACK FREIGHT AND PASSENGER AGENT Ot 289.3 08/13/2014 LASHAY BLACK FREIGHT AND PASSENGER AGENT Ot 782.2 09/06/2014 HALEY DPM, KRYSTLE 727.42 GANGLION OF TENDON SHEATH 09/06/2014 MADL FACILITIES ADMINISTRATOR, RAJIV L 727.42 GANGLION OF TENDON SHEATH 09/06/2014 LASHAY BLACK APRN S 727.42 GANGLION OF TENDON SHEATH 10/04/2014 MAGDALENOL FACILITIES ADMINISTRATOR, RAJIV L 465.9 UPPER RESPIRATORY INFECTION 10/04/2014 MAGDALENOL FACILITIES ADMINISTRATOR, RAJIV L 719.41 PAIN IN JOINT INVOLVING [...] 12/31/2014 LASHAY BLACKP Ot 289.3 12/31/2014 LASHAY BLACKP Ot 723.1 12/31/2014 LASHAY BLACKP Ot 729.2 12/31/2014 LASHAY BLACKP Ot V57.1 12/31/2014 LASHAY BLACK FREIGHT AND PASSENGER AGENT Ot 723.0 12/31/2014 LASHAY BLACK FREIGHT AND PASSENGER AGENT Ot 723.1 12/31/2014 LASHAY BLACKP Ot 729.2 12/31/2014 LASHAY BLACK FREIGHT AND PASSENGER AGENT Ot V57.1 12/31/2014 LASHAY BLACKP Ot 723.1 12/31/2014 LASHAY BLACK FREIGHT AND PASSENGER AGENT Ot 729.2 12/31/2014 LASHAY BLACKP Ot V57.1 02/14/2015 LASHAY BLACKP Ot 723.1 CERVICALGIA 02/14/2015 LASHAY BLACK FREIGHT AND PASSENGER AGENT Ot 729.2 NEURALGIA/NEURITIS NOS 02/14/2015 LASHAY BLACK FREIGHT AND PASSENGER AGENT Ot V57.1 PHYSICAL THERAPY NEC 11/18/2015 Ot [...] Ot V72.81 11/19/2015 Ot V74.8 11/19/2015 LASHAY BLACK FREIGHT AND PASSENGER AGENT Ot 289.3 11/19/2015 SOFIALASHAY CRUZ FREIGHT AND PASSENGER AGENT Ot 723.0 11/19/2015 SOFIALASHAY CRUZ FREIGHT AND PASSENGER AGENT Ot M54.2 11/20/2015 ERIC LOPEZ FACILITIES ADMINISTRATOR Ot I10 ESSENTIAL (PRIMARY) HYPERTENSION 11/20/2015 ERIC LOPEZ FACILITIES ADMINISTRATOR Ot R51 HEADACHE 11/21/2015 JERSON MORGAN MD Ot I10 ESSENTIAL (PRIMARY) HYPERTENSION 11/21/2015 JERSON MORGAN MD Ot R10.84 GENERALIZED ABDOMINAL PAIN 11/21/2015 JERSON MORGAN MD Ot R11.2 NAUSEA WITH VOMITING, UNSPECIFIED 11/21/2015 JERSON MORGAN MD Ot R51 HEADACHE 11/21/2015 JERSON MORGAN MD Ot Z79.899 OTHER ART DEALER (CURRENT) DRUG THERAPY 11/21/2015 JERSON MORGAN MD [...] 02/02/2016 DAVID DO, MORELIA K Ot Z79.891 ART DEALER (CURRENT) USE OF OPIATE ANALGE 02/03/2016 DAVID [...] 02/03/2016 DAVID DO, MORELIA K Ot Z79.891 RESIDENTIAL (CURRENT) USE OF OPIATE ANALGE 02/08/2016 DAVID DO MORELIA K Ot G89.29 OTHER CHRONIC PAIN 02/08/2016 DAVID DO, MORELIA K Ot K57.90 DVRTCLOS OF INTEST, PART UNSP, W/O PERF 02/08/2016 DAVID DO, MORELIA K Ot M54.5 LOW BACK PAIN 02/08/2016 DAVID DO, MORELIA K Ot R11.2 NAUSEA WITH VOMITING, UNSPECIFIED 02/08/2016 DAVID DO, MORELIA K Ot R19.7 DIARRHEA, UNSPECIFIED 02/08/2016 DAVID DO, MORELIA K Ot Z79.891 ART DEALER (CURRENT) USE OF OPIATE ANALGE 02/28/2016 DAVID DO MORELIA K Ot G89.29 OTHER CHRONIC PAIN 02/28/2016 DAVID DO, MORELIA K Ot K57.90 DVRTCLOS OF INTEST, PART UNSP, W/O PERF 02/28/2016 DAVID DO, MORELIA K Ot M54.5 LOW BACK PAIN 02/28/2016 DAVID DO, MORELIA K Ot R11.2 NAUSEA WITH VOMITING, UNSPECIFIED 02/28/2016 DAVID DO, MORELIA K Ot R19.7 DIARRHEA, UNSPECIFIED 02/28/2016 DAVID DO, MORELIA K Ot Z79.891 ART DEALER (CURRENT) USE OF OPIATE ANALGE 03/08/2016 Ot [...] SCREEN- BACTERIAL DIS NEC 03/08/2016 LASHAY BLACK [employer] Ot 289.3 LYMPHADENITIS NOS 03/08/2016 LASHAY BLACKP Ot 723.0 CERVICAL SPINAL STENOSIS 03/08/2016 LASHAY [...] DO, KODY L Ot E86.0 DEHYDRATION 03/10/2016 BONNIE JACKSON DOR L Ot T67.5XXA HEAT EXHAUSTION, UNSPECIFIED, INITIAL EN 03/16/2016 LASHAY BLACKP Ot M25.50 PAIN IN UNSPECIFIED JOINT 03/16/2016 LASHAY BLACK [employer]EN[employer] AGENT Ot R50.9 FEVER, UNSPECIFIED 05/25/2016 Ot R07.9 CHEST PAIN, UNSPECIFIED 05/25/2016 LASHAY BLACK [employer]ENT Ot M25.50 PAIN IN UNSPECIFIED JOINT 05/25/2016 LASHAY BLACK [employer]ENT Ot R50.9 FEVER, UNSPECIFIED 06/09/2016 LASHAY BLACK [employer] Ot 289.3 LYMPHADENITIS NOS 06/09/2016 LASHAY BLACK [employer]ENT Ot 723.0 CERVICAL SPINAL STENOSIS 06/09/2016 LASHAY BLACK [employer] AGENT Ot M54.2 CERVICALGIA 06/09/2016 MIRIAN WELLER FAC, HAZEL BENNETT CCDS Ot R07.9 CHEST PAIN, UNSPECIFIED 06/09/2016 Ot R07.9 CHEST PAIN, UNSPECIFIED 06/09/2016 LASHAY BLACK [employer]ENT Ot M25.50 PAIN IN UNSPECIFIED JOINT 06/09/2016 LASHAY BLACKP Ot R50.9 FEVER, UNSPECIFIED 06/09/2016 DIMA FOSS [...] D Ot R19.7 DIARRHEA, UNSPECIFIED 09/03/2016 KINGSLEY DO ESTEVAN D Ot Z01.818 ENCOUNTER FOR OTHER PREPROCEDURAL EXAMIN 09/07/2016 DIMA FOSS APRN Ot G47.33 OBSTRUCTIVE SLEEP APNEA (ADULT) (PEDIATR 09/07/2016 DIMA FOSS FACILITIES ADMINISTRATOR Ot J45.909 UNSPECIFIED ASTHMA, UNCOMPLICATED 09/07/2016 DIMA FOSS FACILITIES ADMINISTRATOR Ot R06.02 SHORTNESS OF BREATH 09/07/2016 KINGSLEY DO ESTEVAN D Ot D12.4 BENIGN NEOPLASM OF DESCENDING COLON 09/07/2016 KINGSLEY DO, ESTEVAN D Ot K25.7 CHRONIC [...] K29.70 GASTRITIS, UNSPECIFIED, WITHOUT BLEEDING 09/09/2016 KINGSLEY DO ESTEVAN D Ot K44.9 DIAPHRAGMATIC HERNIA WITHOUT OBSTRUCTION 09/09/2016 KINGSLEY DO, ESTEVAN D Ot K57.30 DVRTCLOS OF LG INT W/O PERFORATION OR AB 09/09/2016 KINGSLEY DO, ESTEVAN D Ot R19.7 DIARRHEA, UNSPECIFIED 10/04/2016 DIMA FOSS APRN Ot G47.33 OBSTRUCTIVE SLEEP APNEA (ADULT) (PEDIATR 10/04/2016 DIMA FOSS FACILITIES ADMINISTRATOR Ot J45.909 UNSPECIFIED ASTHMA, UNCOMPLICATED 10/04/2016 DIMA FOSS FACILITIES ADMINISTRATOR Ot R06.02 SHORTNESS OF BREATH 02/02/2017 LASHAY BLACK [facility] Ot 289.3 LYMPHADENITIS NOS 02/02/2017 LASHAY BLACK [employer]ENT Ot 723.0 CERVICAL SPINAL STENOSIS 02/02/2017 LASHAY BLACK [employer] PASSENGER AGENT Ot M54.2 CERVICALGIA 02/02/2017 MIRIAN HA, [facility] CCDS Ot R07.9 CHEST PAIN, UNSPECIFIED 02/02/2017 Ot R07.9 CHEST PAIN, UNSPECIFIED 02/02/2017 LASHAY BLACK [employer]ENGER AGENT Ot M25.50 PAIN IN UNSPECIFIED JOINT 02/02/2017 LASHAY BLACK [employer]EN[employer] AGENT Ot R50.9 FEVER, UNSPECIFIED 02/02/2017 DIMA FOSS FACILITIES ADMINISTRATOR Ot G47.33 OBSTRUCTIVE SLEEP APNEA (ADULT) (PEDIATR 02/02/2017 DIMA FOSS FACILITIES ADMINISTRATOR Ot J45.909 UNSPECIFIED ASTHMA, UNCOMPLICATED 02/02/2017 DIMA FOSS FACILITIES ADMINISTRATOR Ot R06.02 SHORTNESS OF BREATH 02/18/2017 LASHAY BLACKP Ot 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 CCDS Ot R07.9 CHEST PAIN, UNSPECIFIED 02/28/2017 Ot R07.9 CHEST PAIN, UNSPECIFIED 02/28/2017 LASHAY BLACK [employer] P[employer]ENGER AGENT Ot M25.50 PAIN IN UNSPECIFIED JOINT 02/28/2017 LASHAY BLACK [employer]RE[employer] AND P[employer]ENGER AGENT Ot R50.9 FEVER, UNSPECIFIED 02/28/2017 DIMA FOSS FACILITIES ADMINISTRATOR Ot G47.33 OBSTRUCTIVE SLEEP APNEA (ADULT) (PEDIATR 02/28/2017 DIMA FOSS FACILITIES ADMINISTRATOR Ot J45.909 UNSPECIFIED ASTHMA, UNCOMPLICATED 02/28/2017 DIMA FOSS FACILITIES ADMINISTRATOR Ot R06.02 SHORTNESS OF BREATH 02/28/2017 LASHAY BLACK FRE[employer] AND PASSENGER AGENT Ot 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 02/28/2017 LASHAY BLACK [employer]RE[employer] AND PASSENGER AGENT Ot R22.42 LOCALIZED SWELLING, MASS AND LUMP, LEFT 02/28/2017 LANDON WELLER, JONAH Gutierrez Ot R22.42 LOCALIZED SWELLING, MASS AND LUMP, LEFT 02/28/2017 JONAH ALLEN MD Ot Z01.818 ENCOUNTER FOR OTHER PREPROCEDURAL EXAMIN 03/04/2017 JONAH ALLEN MD Ot C44.709 UNSP MALIGNANT NEOPLASM SKIN/ LEFT LOWER 03/04/2017 JONAH ALLEN MD Ot F17.220 NICOTINE DEPENDENCE, CHEWING TOBACCO, UN 03/04/2017 JONAH ALLEN MD Ot I10 ESSENTIAL (PRIMARY) HYPERTENSION 03/04/2017 JONAH ALLEN MD Ot J44.9 CHRONIC OBSTRUCTIVE PULMONARY DISEASE, U 03/04/2017 JONAH ALLEN MD Ot J45.909 UNSPECIFIED ASTHMA, UNCOMPLICATED 03/04/2017 JONAH ALLEN MD Ot Z79.899 OTHER RESIDENTIAL (CURRENT) DRUG THERAPY 03/20/2017 JONAH ALLEN MD Ot C44.709 UNSP MALIGNANT NEOPLASM SKIN/ LEFT LOWER 03/20/2017 JONAH ALLEN MD Ot F17.220 NICOTINE DEPENDENCE, CHEWING TOBACCO, UN 03/20/2017 JONAH ALLEN MD Ot I10 ESSENTIAL (PRIMARY) HYPERTENSION 03/20/2017 JONAH ALLEN MD Ot J44.9 CHRONIC OBSTRUCTIVE PULMONARY DISEASE, U 03/20/2017 JONAH ALLEN MD Ot J45.909 UNSPECIFIED ASTHMA, UNCOMPLICATED 03/20/2017 JONAH ALLEN MD Ot Z79.899 OTHER ART DEALER (CURRENT) DRUG THERAPY 03/26/2017 JONAH ALLEN MD Ot C44.709 UNSP MALIGNANT NEOPLASM SKIN/ LEFT LOWER 03/26/2017 JOANH ALLEN MD Ot F17.220 NICOTINE DEPENDENCE, CHEWING TOBACCO, UN 03/26/2017 JONAH ALLEN MD Ot I10 ESSENTIAL (PRIMARY) HYPERTENSION 03/26/2017 JONAH ALLEN MD Ot J44.9 CHRONIC OBSTRUCTIVE PULMONARY DISEASE, U 03/26/2017 JONAH ALLEN MD Ot J45.909 UNSPECIFIED ASTHMA, UNCOMPLICATED 03/26/2017 JONAH ALLEN MD Ot Z79.899 OTHER RESIDENTIAL (CURRENT) DRUG THERAPY 04/27/2017 YUNIER HESS MD, Ot E78.00 PURE HYPERCHOLESTEROLEMIA, UNSPECIFIED 04/27/2017 YUNIER HESS MD, Ot G43.909 MIGRAINE, UNSP, NOT INTRACTABLE, WITHOUT 04/27/2017 YUNIER HESS MD, Ot G47.30 SLEEP APNEA, UNSPECIFIED 04/27/2017 YUNIER HESS MD, Ot G89.29 OTHER CHRONIC PAIN 04/27/2017 YUNIER HESS MD, Ot I10 ESSENTIAL (PRIMARY) HYPERTENSION 04/27/2017 YUNIRE HESS MD, Ot J44.9 CHRONIC OBSTRUCTIVE PULMONARY DISEASE, U 04/27/2017 YUNIER HESS MD, Ot K21.9 GASTRO-ESOPHAGEAL REFLUX DISEASE WITHOUT 04/27/2017 YUNIER HESS MD, Ot M19.90 UNSPECIFIED OSTEOARTHRITIS, UNSPECIFIED 04/27/2017 YUNIER HESS MD, Ot M54.9 DORSALGIA, UNSPECIFIED 04/27/2017 YUNIER HESS MD Ot N40.0 BENIGN PROSTATIC HYPERPLASIA WITHOUT LOW 04/27/2017 YUNIER HESS MD, Ot S01.01XA LACERATION WITHOUT FOREIGN BODY OF SCALP 04/27/2017 YUNIER HESS MD, Ot S06.0X0A CONCUSSION WITHOUT LOSS OF CONSCIOUSNESS 04/27/2017 YUNIER HESS MD Ot V80.010A ANIML-RIDR INJURED BY FALL FR HORSE IN N 04/27/2017 YUNIER HESS MD Ot W22.09XA STRIKING AGAINST OTHER STATIONARY OBJECT 04/27/2017 YUNIER HESS MD Ot Z87.891 PERSONAL HISTORY OF NICOTINE DEPENDENCE 04/27/2017 YUNIER HESS MD Ot Z90.49 ACQUIRED ABSENCE OF OTHER SPECIFIED PART 05/14/2017 YUNIER HESS MD, Ot E78.00 PURE HYPERCHOLESTEROLEMIA, UNSPECIFIED 05/14/2017 YUNIER HESS MD Ot G43.909 MIGRAINE, UNSP, NOT INTRACTABLE, WITHOUT 05/14/2017 YUNIER HESS MD Ot G47.30 SLEEP APNEA, UNSPECIFIED 05/14/2017 YUNIER HESS MD, Ot G89.29 OTHER CHRONIC PAIN 05/14/2017 YUNIER HESS MD Ot I10 ESSENTIAL (PRIMARY) HYPERTENSION 05/14/2017 YUNIER HESS MD Ot J44.9 CHRONIC OBSTRUCTIVE PULMONARY DISEASE, U 05/14/2017 YUNIER HESS MD Ot K21.9 GASTRO-ESOPHAGEAL REFLUX DISEASE WITHOUT 05/14/2017 YUNIER HESS MD Ot M19.90 UNSPECIFIED OSTEOARTHRITIS, UNSPECIFIED 05/14/2017 YUNIER HESS MD Ot M54.9 DORSALGIA, UNSPECIFIED 05/14/2017 YUNIER HESS MD Ot N40.0 BENIGN PROSTATIC HYPERPLASIA WITHOUT LOW 05/14/2017 YUNIER HESS MD Ot S01.01XA LACERATION WITHOUT FOREIGN BODY OF SCALP 05/14/2017 YUNIER HESS MD, Ot S06.0X0A CONCUSSION WITHOUT LOSS OF CONSCIOUSNESS 05/14/2017 YUNIER HESS MD Ot V80.010A ANIML-RIDR INJURED BY FALL FR HORSE IN N 05/14/2017 YUNIER HESS MD Ot W22.09XA STRIKING AGAINST OTHER STATIONARY OBJECT 05/14/2017 YUNIER HESS MD Ot Z87.891 PERSONAL HISTORY [...] MD Ot K76.9 LIVER DISEASE, UNSPECIFIED 07/15/2017 AGAPITO WELLER, PONCHO Tate Ot R91.8 OTHER NONSPECIFIC ABNORMAL FINDING OF JAMES 07/15/2017 PONCHO ALTMAN MD Ot Z98.890 OTHER SPECIFIED POSTPROCEDURAL STATES 05/26/2018 DAVID MORELIA PENNINGTON Ot E78.00 PURE HYPERCHOLESTEROLEMIA, UNSPECIFIED 05/26/2018 DAVID , MORELIA K Ot G43.909 MIGRAINE, UNSP, NOT INTRACTABLE, WITHOUT 05/26/2018 DAVID DO, MORELIA K Ot G47.30 SLEEP APNEA, UNSPECIFIED 05/26/2018 DAVID DO, MORELIA K Ot I10 ESSENTIAL (PRIMARY) HYPERTENSION 05/26/2018 DAVID DO MORELIA K Ot J44.9 CHRONIC OBSTRUCTIVE PULMONARY DISEASE, U 05/26/2018 DAVID DO MORELIA K Ot K21.9 GASTRO-ESOPHAGEAL REFLUX DISEASE WITHOUT 05/26/2018 DAVID DO, MORELIA K Ot R07.89 OTHER CHEST PAIN 05/26/2018 DAVID PENNINGTON MORELIA K Ot Z79.51 RESIDENTIAL (CURRENT) USE OF INHALED STERO 05/26/2018 DAVID PENNINGTON MORELIA K Ot Z85.9 PERSONAL HISTORY OF MALIGNANT NEOPLASM, 05/26/2018 DAVID EPNNINGTON MORELIA K Ot Z87.19 PERSONAL HISTORY OF OTHER DISEASES OF TH 05/26/2018 DAVID PENNINGTON MORELIA Keane Ot Z87.891 PERSONAL HISTORY OF NICOTINE DEPENDENCE 05/26/2018 DAVID PENNINGTON MORELIA K Ot Z88.0 ALLERGY STATUS TO PENICILLIN 05/26/2018 DAVID PENNINGTON MORELIA K Ot Z98.890 OTHER SPECIFIED POSTPROCEDURAL STATES 05/29/2018 DAVID DOMARUA Lakhwinder Ot E78.00 PURE HYPERCHOLESTEROLEMIA, UNSPECIFIED 05/29/2018 DAVID DO, MORELIA K Ot G43.909 MIGRAINE, UNSP, NOT INTRACTABLE, WITHOUT 05/29/2018 DAVID DO, MORELIA K Ot G47.30 SLEEP APNEA, UNSPECIFIED 05/29/2018 DAVID DO MORELIA K Ot I10 ESSENTIAL (PRIMARY) HYPERTENSION 05/29/2018 DAVID DO, MORELIA K Ot J44.9 CHRONIC OBSTRUCTIVE PULMONARY DISEASE, U 05/29/2018 DAVID DO, MORELIA K Ot K21.9 GASTRO-ESOPHAGEAL REFLUX DISEASE WITHOUT 05/29/2018 DAVID DO MORELIA K Ot R07.89 OTHER CHEST PAIN 05/29/2018 MORELIA HERNANDEZ DO Ot Z79.51 RESIDENTIAL (CURRENT) USE OF INHALED STERO 05/29/2018 MORELIA HERNANDEZ DO Ot Z85.9 PERSONAL HISTORY OF MALIGNANT NEOPLASM, 05/29/2018 MORELIA HERNANDEZ DO Ot Z87.19 PERSONAL HISTORY OF OTHER DISEASES OF TH 05/29/2018 MORELIA HERNANDEZ DO Ot Z87.891 PERSONAL HISTORY OF NICOTINE DEPENDENCE 05/29/2018 MORELIA HERNANDEZ DO Ot Z88.0 ALLERGY STATUS TO PENICILLIN 05/29/2018 MORELIA HERNANDEZ DO Ot Z98.890 OTHER SPECIFIED POSTPROCEDURAL STATES 12/21/2018 ESTEVAN KINGSLEY DO Ot E78.00 PURE HYPERCHOLESTEROLEMIA, UNSPECIFIED 12/21/2018 ESTEVAN KINGSLEY DO Ot G47.30 SLEEP APNEA, UNSPECIFIED 12/21/2018 ESTEVAN KINGSLEY DO Ot I10 ESSENTIAL (PRIMARY) HYPERTENSION 12/21/2018 ESTEVAN KINGSLEY DO Ot J44.9 CHRONIC OBSTRUCTIVE PULMONARY DISEASE, U 12/21/2018 ESTEVAN KINGSLEY DO Ot J98.11 ATELECTASIS 12/21/2018 ESTEVAN KINGSLEY DO Ot 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 12/21/2018 ESTEVAN KINGSLEY DO Ot K21.9 GASTRO-ESOPHAGEAL REFLUX DISEASE WITHOUT 12/21/2018 ESTEVAN KINGSLEY DO Ot M19.91 PRIMARY OSTEOARTHRITIS, UNSPECIFIED SITE 12/21/2018 ESTEVAN KINGSLEY DO Ot M79.7 FIBROMYALGIA 12/21/2018 ESTEVAN KINGSLEY DO Ot N13.30 UNSPECIFIED HYDRONEPHROSIS 12/21/2018 ESTEVAN KINGSLEY DO Ot N13.5 CROSSING VESSEL AND STRICTURE OF URETER 12/21/2018 ESTEVAN KINGSLEY DO Ot N19 UNSPECIFIED KIDNEY FAILURE 12/21/2018 ESTEVAN KINGSLEY DO Ot N40.1 BENIGN PROSTATIC HYPERPLASIA WITH LOWER 12/21/2018 ESTEVAN KINGSLEY DO Ot R35.0 FREQUENCY OF MICTURITION 12/21/2018 ESTEVAN KINGSLEY DO Ot R35.1 NOCTURIA 12/21/2018 ESTEVNA KINGSLEY DO Ot S22.41XA MULTIPLE FRACTURES OF RIBS, RIGHT SIDE, 12/21/2018 ESTEVAN KINGSLEY DO Ot S27.0XXA TRAUMATIC PNEUMOTHORAX, INITIAL ENCOUNTE 12/21/2018 ESTEVAN KINGSLEY DO Ot W64.XXXA EXPOSURE TO OTHER ANIMATE MECHANICAL FOR 12/21/2018 ESTEVAN KINGSLEY DO Ot Z79.899 OTHER RESIDENTIAL (CURRENT) DRUG THERAPY 12/21/2018 ESTEVAN KINGSLEY DO Ot Z87.891 PERSONAL HISTORY OF NICOTINE DEPENDENCE 12/21/2018 ESTEVAN KINGSLEY DO Ot Z88.0 ALLERGY STATUS TO PENICILLIN 12/27/2018 LASHAY BLACK FREIGHT AND PASSENGER AGENT Ot 289.3 LYMPHADENITIS NOS 12/27/2018 LASHAY BLACKP Ot 723.0 CERVICAL SPINAL STENOSIS 12/27/2018 LASHAY BLACKP Ot M54.2 CERVICALGIA 12/27/2018 MIRIAN WELLER FAC, HAZEL FACP CCDS Ot R07.9 CHEST PAIN, UNSPECIFIED 12/27/2018 Ot R07.9 CHEST PAIN, UNSPECIFIED 12/27/2018 LASHAY BLACKP Ot M25.50 PAIN IN UNSPECIFIED JOINT 12/27/2018 LASHAY BLACKP Ot R50.9 FEVER, UNSPECIFIED 12/27/2018 DIMA FOSS APRN Ot G47.33 OBSTRUCTIVE SLEEP APNEA (ADULT) (PEDIATR 12/27/2018 DIMA FOSS APRN Ot J45.909 UNSPECIFIED ASTHMA, UNCOMPLICATED 12/27/2018 DIMA FOSS APRN Ot R06.02 SHORTNESS OF BREATH 12/27/2018 LASHAY BLACKP Ot 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 12/27/2018 LASHAY BLACKP Ot R22.42 LOCALIZED SWELLING, MASS AND LUMP, LEFT 12/27/2018 PONCHO ALTMAN MD Ot C44.99 OTHER SPECIFIED MALIGNANT NEOPLASM OF SK 12/27/2018 PONCHO ALTMAN MD Ot K57.30 DVRTCLOS OF LG INT W/O PERFORATION OR AB 12/27/2018 PONCHO ALTMAN MD Ot K76.9 LIVER DISEASE, UNSPECIFIED 12/27/2018 PONCHO ALTMAN MD Ot R91.8 OTHER NONSPECIFIC ABNORMAL FINDING OF JAMES 12/27/2018 PONCHO ALTMAN MD, Ot Z98.890 OTHER SPECIFIED POSTPROCEDURAL STATES 12/27/2018 DIMA FOSS APRN Ot G47.33 OBSTRUCTIVE SLEEP APNEA (ADULT) (PEDIATR 12/27/2018 DIMA FOSS APRN Ot J44.9 CHRONIC OBSTRUCTIVE PULMONARY DISEASE, U 12/27/2018 DIMA FOSS APRN Ot S22.49XD MULTIPLE FX OF RIBS, UNSP SIDE, SUBS FOR 01/01/2019 MOOKIE WELLER, CHRISTA Wong Ot Z01.818 ENCOUNTER FOR OTHER PREPROCEDURAL EXAMIN Procedures Code Description Performed By Performed On General S Landon Jonah 07/14/2012 17152 ROUTINE VENIPUNCTURE 07/21/2012 81109 CMP 07/21/2012 75974 LIPID PANEL 07/21/2012 [id number] GFR CALC (RESULT ONLY) 07/21/2012 Podiatry Krystle Man 08/07/2012 28123 URINE DRUG SCREEN (IN-HOUSE ) 10/11/2012 86056 XRAY KNEE RIGHT 3 VIEWS 06/25/2013 79159 URINE DRUG SCREEN (IN-HOUSE ) 06/25/2013 92560 JOINT INJECTION- LARGE JOINT (SPECIFY MEDCIN DESCRIPTION) 06/30/2013 ORTHOPEDI EDUARDO GOMES 07/25/2013 30697 XRAY RIBS LEFT UNILATERAL 2 OR MORE VIEWS 08/23/2013 80284 XRAY HAND RIGHT MIN 3 VIEWS 10/16/2013 07357 ROUTINE VENIPUNCTURE 01/09/2014 28208 CBC 01/09/2014 [id number] GFR CALC (RESULT ONLY) 01/09/2014 37021 CMP 01/09/2014 06108 LIPID PANEL 01/09/2014 19296 PSA TOTAL 01/09/2014 70900 TSH 01/09/2014 708538 [employer] DRUG SCREEN 01/11/2014 53348 ROUTINE VENIPUNCTURE 03/26/2014 52775 UA W/ CULTURE IF INDICATED 03/26/2014 20181 CBC 03/26/2014 23429 ROUTINE VENIPUNCTURE 04/30/2014 84497 SED/ESR RATE (IN HOUSE) 04/30/2014 19738 URIC ACID 04/30/2014 84457 CRP 04/30/2014 50125 RA FACTOR 05/01/2014 96336 ASO 05/01/2014 ANAANA TONY ANALYZER (SCREEN) 05/01/2014 541060 [employer] DRUG SCREEN 05/17/2014 42696 ROUTINE VENIPUNCTURE 07/04/2014 90209 CBC 07/05/2014 38351 US HEAD (SOFT TISSUE) ULTRASOUND, HEAD 07/10/2014 13232 MRI SOFT TISSUE NECK, W AND W/O CONTRAST 07/24/2014 37342 XRAY FOOT LEFT COMP MIN 3 VIEWS 07/30/2014 121666 [employer] DRUG SCREEN 08/13/2014 60040 ASPIRATE/INJ GANGLION CYST 09/06/2014 40708 XRAY SHOULDER RIGHT COMP 2 VIEWS 10/04/2014 93046 INFLUENZA A & B (IN-HOUSE) 10/04/2014 43345 EMG, ONE LIMB 11/27/2014 Neurology Faye Jama 11/27/2014 53697 MRI SPINE (CERVICAL) W/O CONTRAST 12/17/2014 Results [...] g/dL 3.2-4.5 CALCIUM CORRECTED 9.4 mg/dL 8.5-10.1 Methicillin resistant Staphylococcus aureus (MRSA) screening culture - 20:30 Methicillin resistant Staphylococcus aureus (MRSA) screening culture NEG NRG Complete blood count (CBC) with automated white blood cell (WBC) differential - 12/20/18 03:15 Blood leukocytes automated count (number/volume) 9.4 10*3/uL 4.3-11.0 Blood erythrocytes automated count (number/volume) 4.85 10*6/uL 4.35-5.85 Venous blood hemoglobin measurement (mass/volume) 15.1 g/dL 13.3-17.7 Blood hematocrit (volume fraction) 44 % 40-54 Automated erythrocyte mean corpuscular volume 91 [foz_us] 80-99 Automated erythrocyte mean corpuscular hemoglobin (mass per erythrocyte) 31 pg 25-34 Automated erythrocyte mean corpuscular hemoglobin concentration measurement ( mass/volume) 34 g/dL 32-36 Automated erythrocyte distribution width ratio 13.4 % 10.0-14.5 Automated blood platelet count (count/volume) 224 10*3/uL 130-400 Automated blood platelet mean volume measurement 9.3 [foz_us] 7.4-10.4 Automated blood neutrophils/100 leukocytes 74 % 42-75 Automated blood lymphocytes/100 leukocytes 14 % 12-44 Blood monocytes/100 leukocytes 10 % 0-12 Automated blood eosinophils/100 leukocytes 2 % 0-10 Automated blood basophils/100 leukocytes 0 % 0-10 Blood neutrophils automated count (number/volume) 7.0 10*3 1.8-7.8 Blood lymphocytes automated count (number/volume) 1.3 10*3 1.0-4.0 Blood monocytes automated count (number/volume) 1.0 10*3 0.0-1.0 Automated eosinophil count 0.1 10*3/uL 0.0-0.3 Automated blood basophil count (count/volume) 0.0 10*3/uL 0.0-0.1 Whole blood basic metabolic panel - 12/20/18 03:15 Serum or plasma sodium measurement (moles/volume) 136 mmol/L 135-145 Serum or plasma potassium measurement (moles/volume) 4.2 mmol/L 3.6-5.0 Serum or plasma chloride measurement (moles/volume) 105 mmol/L 98-107 Carbon dioxide 22 mmol/L 21-32 Serum or plasma anion gap determination (moles/volume) 9 mmol/L 5-14 Serum or plasma urea nitrogen measurement (mass/volume) 11 mg/dL 7-18 Serum or plasma creatinine measurement (mass/volume) 1.38 mg/dL 0.60-1.30 Serum or plasma urea nitrogen/creatinine mass ratio 8 NRG Serum or plasma creatinine measurement with calculation of estimated glomerular filtration rate 52 NRG Serum or plasma glucose measurement (mass/volume) 88 mg/dL 70-105 Serum or plasma calcium measurement (mass/volume) 9.1 mg/dL 8.5-10.1 Serum or plasma phosphate measurement (mass/volume) - 12/20/18 03:15 Serum or plasma phosphate measurement (mass/volume) 3.5 mg/dL 2.3-4.7 Magnesium - 12/20/18 03:15 Magnesium 2.2 mg/dL 1.8-2.4 Complete blood count (CBC) with automated white blood cell (WBC) differential - 12/21/18 04:00 Blood leukocytes automated count (number/volume) 8.1 10*3/uL 4.3-11.0 Blood erythrocytes automated count (number/volume) 5.03 10*6/uL 4.35-5.85 Venous blood hemoglobin measurement (mass/volume) 15.3 g/dL 13.3-17.7 Blood hematocrit (volume fraction) 46 % 40-54 Automated erythrocyte mean corpuscular volume 92 [foz_us] 80-99 Automated erythrocyte mean corpuscular hemoglobin (mass per erythrocyte) 30 pg 25-34 Automated erythrocyte mean corpuscular hemoglobin concentration measurement ( mass/volume) 33 g/dL 32-36 Automated erythrocyte distribution width ratio 13.0 % 10.0-14.5 Automated blood platelet count (count/volume) 204 10*3/uL 130-400 Automated blood platelet mean volume measurement 9.4 [foz_us] 7.4-10.4 Automated blood neutrophils/100 leukocytes 80 % 42-75 Automated blood lymphocytes/100 leukocytes 11 % 12-44 Blood monocytes/100 leukocytes 6 % 0-12 Automated blood eosinophils/100 leukocytes 2 % 0-10 Automated blood basophils/100 leukocytes 1 % 0-10 Blood neutrophils automated count (number/volume) 6.5 10*3 1.8-7.8 Blood lymphocytes automated count (number/volume) 0.9 10*3 1.0-4.0 Blood monocytes automated count (number/volume) 0.5 10*3 0.0-1.0 Automated eosinophil count 0.1 10*3/uL 0.0-0.3 Automated blood basophil count (count/volume) 0.1 10*3/uL 0.0-0.1 Comprehensive metabolic panel - 12/21/18 04:00 Serum or plasma sodium measurement (moles/volume) 138 mmol/L 135-145 Serum or plasma potassium measurement (moles/volume) 4.2 mmol/L 3.6-5.0 Serum or plasma chloride measurement (moles/volume) 104 mmol/L 98-107 Carbon dioxide 24 mmol/L 21-32 Serum or plasma anion gap determination (moles/volume) 10 mmol/L 5-14 Serum or plasma urea nitrogen measurement (mass/volume) 13 mg/dL 7-18 Serum or plasma creatinine measurement (mass/volume) 1.31 mg/dL 0.60-1.30 Serum or plasma urea nitrogen/creatinine mass ratio 10 NRG Serum or plasma creatinine measurement with calculation of estimated glomerular filtration rate 55 NRG Serum or plasma glucose measurement (mass/volume) 96 mg/dL 70-105 Serum or plasma calcium measurement (mass/volume) 9.4 mg/dL 8.5-10.1 Serum or plasma total bilirubin measurement (mass/volume) 0.7 mg/dL 0.1-1.0 Serum or plasma alkaline phosphatase measurement (enzymatic activity/volume) 69 U/L 40-136 Serum or plasma aspartate aminotransferase measurement (enzymatic activity/ volume) 15 U/L 5-34 Serum or plasma alanine aminotransferase measurement (enzymatic activity/volume ) 15 U/L 0-55 Serum or plasma protein measurement (mass/volume) 6.7 g/dL 6.4-8.2 Serum or plasma albumin measurement (mass/volume) 4.0 g/dL 3.2-4.5 CALCIUM CORRECTED 9.4 mg/dL 8.5-10.1 Encounters ACCT No. Visit Date/Time Discharge Status Pt. Type Provider Facility Loc./Unit Complaint [id number] 11/27/2014 00:00:00 11/27/2014 23:59:59 CLS Outpatient LASHAY BLACK APRN [id number] 10/04/2014 08:27:00 10/04/2014 23:59:59 CLS Outpatient RAJIV MANCERA APRN [id number] 09/06/2014 09:42:00 09/06/2014 23:59:59 CLS Outpatient KRYSTLE MAN DPM [id number] 08/13/2014 09:10:00 08/13/2014 23:59:59 CLS Outpatient LASHAY BLACK APRN [id number] 07/30/2014 08:38:00 07/30/2014 23:59:59 CLS Outpatient LASHAY BLACK APRN [id number] 07/04/2014 17:44:00 07/04/2014 23:59:59 CLS Outpatient LASHAY BLACK APRN [id number] 05/15/2014 09:11:00 05/15/2014 23:59:59 CLS Outpatient LASHAY BLACK APRN S [id number] 04/30/2014 08:35:00 04/30/2014 23:59:59 CLS Outpatient LASHAY BLACK APRN S [id number] 03/26/2014 11:24:00 03/26/2014 23:59:59 CLS Outpatient LASHAY BLACK APRN S [id number] 02/22/2014 13:14:00 02/22/2014 23:59:59 CLS Outpatient ESVIN LINDA MD [id number] 01/09/2014 08:29:00 01/09/2014 23:59:59 CLS Outpatient LASHAY BLACK APRN [id number] 10/16/2013 10:54:00 10/16/2013 23:59:59 CLS Outpatient LASHAY BLACK APRN S [id number] 08/23/2013 15:46:00 08/23/2013 23:59:59 CLS Outpatient LOPEZ DODANIELAMarvin Keane [id number] 07/25/2013 15:57:00 07/25/2013 23:59:59 CLS Outpatient LOPEZ DOPARADISE [id number] 06/29/2013 13:19:00 06/29/2013 23:59:59 CLS Outpatient DANIELA LOPEZ DOMarvin Keane [id number] 10/11/2012 14:34:00 10/11/2012 23:59:59 CLS Outpatient LASHAY BLACK APRN S [id number] 08/07/2012 09:13:00 08/07/2012 23:59:59 CLS Outpatient LOPEZ DOPARADISE [id number] 07/11/2012 15:52:00 07/11/2012 23:59:59 CLS Outpatient LOPEZ DOPARADISE [id number] 02/23/2013 10:20:00 Document Registration [id number] 02/17/2015 10:52:42 ACT Document Registration [id number] 12/29/2018 05:49:00 12/29/2018 11:35:00 DIS Outpatient MOOKIE WELLER, CHRISTA Crews [facility] PREOP LEFT HYDRONEPHROSIS [id number] 12/27/2018 14:33:00 12/27/2018 23:59:59 CLS Outpatient DIMA FOSS APRN [facility] RAD G47.9 [id number] 12/19/2018 18:05:00 12/19/2018 23:59:59 CLS Outpatient ESTEVAN KINGSLEY DO [facility] 4TH SMALL PNEUMOTHORAX [id number] 05/26/2018 08:12:00 05/26/2018 10:59:00 DIS Emergency MORELIA HERNANDEZ DO [facility] ER CP,SOB [id number] 07/06/2017 13:57:00 07/06/2017 23:59:59 CLS Outpatient PONCHO ALTMAN MD [facility] RAD ECCRINE CARCINOMA OF SKIN [id number] 04/27/2017 16:28:00 04/27/2017 18:45:00 DIS Emergency YUNIER HESS MD [facility] ER HEAD LACERATION [id number] 03/04/2017 07:40:00 03/04/2017 12:48:00 DIS Outpatient JONAH ALLEN MD [facility] LEFT FOOT PALPABLE LUMP [id number] 02/28/2017 05:34:00 02/28/2017 11:19:00 DIS Outpatient JONAH ALLEN MD [facility] PREOP LEFT FOOT PALPABLE LUMP [id number] 02/02/2017 13:36:00 02/02/2017 23:59:59 CLS Outpatient LASHAY BLACK [facility] RAD Q27.9 VENOUS VASCULAR MALFORMATIONS [id number] 09/07/2016 10:04:00 09/07/2016 12:07:00 DIS Outpatient [facility] DI[facility] [id number] 09/02/2016 05:49:00 09/02/2016 13:48:00 DIS Outpatient ESTEVAN KINGSLEY DO [facility] PREOP DIARRHEA [id number] 06/09/2016 13:57:00 06/09/2016 23:59:59 CLS Outpatient DIMA FOSS APRN [facility] RT ASTHMA,SOB,DYSPNEA [id number] 06/09/2016 12:50:00 06/09/2016 15:38:00 DIS Outpatient DIMA FOSS APRN [facility] SLEEP SOB,ASTHMA, OBSERVED APNEA,SNORING,EDS [id number] 03/15/2016 12:54:00 03/15/2016 23:59:59 CLS Outpatient LASHAY BLACK [facility] LAB FEVER [id number] 03/10/2016 08:34:00 03/10/2016 12:09:00 DIS Emergency JACKSON DO KODY L [facility] ER VOMITING/DIARRHEA [id number] 02/02/2016 13:29:00 02/02/2016 16:25:00 DIS Emergency DAVID DO, MORELIA K [facility] ER DEHYDRATION;LIGHT HEADED [id number] 11/20/2015 22:37:00 11/21/2015 15:35:00 DIS Inpatient JERSON MORGAN MD [facility] 4TH INTRACTABLE H/A, N/V/D, ABD PAIN [id number] 11/20/2015 11:40:00 11/20/2015 13:56:00 DIS Emergency ERIC LOPEZ APRN [facility] ER HEADACHE [id number] 11/18/2015 10:19:00 11/18/2015 23:59:59 CLS Outpatient MIRIAN WELLER FACCHAZEL FACP CCDS [facility] CARD CHEST PAIN [id number] 08/25/2015 13:20:00 08/25/2015 23:59:59 CLS Outpatient LASHAY BLACK [facility] RAD CERVICALGIA [id number] 01/23/2015 10:30:00 02/14/2015 08:59:00 DIS Outpatient LASHAY BLACK [facility] REHAB CERVICALGIA; NEURALGIA AND RADICULITIS [id number] 12/17/2014 15:05:00 12/17/2014 23:59:59 CLS Outpatient LASHAY BLACK [facility] RAD CERVICALGIA [id number] 07/23/2014 16:27:00 07/23/2014 23:59:59 CLS Outpatient BOB BLACKA [employer]IGHT [employer] PASSENGER AGENT [facility] RAD MASS BEHIND LT EAR [id number] 07/22/2014 10:13:00 07/22/2014 23:59:59 CLS Outpatient ARNAV BLACKNDA [employer]GER [employer]ENT [facility] RAD [id number] 07/10/2014 10:01:00 07/10/2014 23:59:59 CLS Outpatient BOB BLACKA [employer]ENT [facility] RAD [id number] 06/26/2014 11:47:00 06/26/2014 13:21:00 DIS Emergency CAMILA WELLER, DANGELO Wong [facility] ER [id number] 01/02/2019 05:51:00 ACT Outpatient CHRISTA DAMICO MD [facility] SDC LEFT HYDRONEPHROSIS [id number] 12/18/2015 07:22:00 Document Registration [id number] 10/29/2012 14:45:00 Document Registration [id number] 09/28/2010 05:41:00 Document Registration [id number] 09/24/2010 10:57:00 Document Registration [id number] 09/23/2010 07:56:00 Document Registration [id number] 10/19/2018 14:20:00 10/19/2018 23:59:59 CLS Outpatient LASHAY BLACK APRN [facility] [id number] 03/15/2018 16:40:00 Document Registration [id number] 12/21/2017 16:00:00 Document Registration [id number] 05/05/2017 10:10:00 Document Registration
[2019-01-02 06:20] VITALS: BP 140/93
[2019-01-02] MEDS: LACTATED RINGERS 1,000 ML IV PRN ×2 (06:20→12:17)
[2019-01-02] MEDS ORDERED: CATHETER FLUSH 10 ML SYR IV PRN (07:00)
[2019-01-02] MEDS ORDERED: cefTRIAXone FOR IV USE 1,000 MG in WATER (STERILE) FOR INJECTION 10 ML IV ONE (07:00)
--- NOTE | 2019-01-02 07:04 | Progress Note-Pre Operative ---
Pre-Operative Progress Note H&P Reviewed The H&P was reviewed, patient examined and no changes noted. Date Seen by Provider: Jan 02, 2019 Time Seen by Provider: 07:03 Date H&P Reviewed: Jan 02, 2019 Time H&P Reviewed: 07:03 Pre-Operative Diagnosis: LT UPJ OBSTRUCTION CHRISTA DAMICO MD Jan 02, 2019 07:04
[2019-01-02] MEDS ORDERED: fentaNYL INJECTION 100 MCG/2 ML AMP ONE ×2 (10:12→11:43)
[2019-01-02] MEDS ORDERED: fentaNYL INJECTION 100 MCG/2 ML AMP IV ONE (10:30)
[2019-01-02] MEDS ORDERED: MIDAZOLAM 2 MG/2 ML (VERSED) VIAL ONE (11:43)
[2019-01-02] MEDS ORDERED: cefTRIAXone 1,000 MG IV (ROCEPHIN) VIAL ONE (11:57)
[2019-01-02] MEDS ORDERED: proPOfol 200 MG/20 ML (DIPRIVAN) VIAL IV ONE (12:26)
[2019-01-02] MEDS ORDERED: LIDOCAINE PF 2% 5 ML (XYLOCAINE) VIAL ONE (12:26)
[2019-01-02] MEDS ORDERED: SEVOFLURANE (ULTANE) 15 ML INHAL SOLN ONE ×2 (12:26)
[2019-01-02] MEDS ORDERED: ONDANSETRON 4 MG/2 ML (SDV) Z0FRAN ONE (12:27)
--- NOTE | 2019-01-02 12:37 | Progress Note-Post Operative ---
Post-Operative Progess Note Surgeon (s)/Automobile Service Station Mechanic (s) Surgeon CHRISTA DAMICO MD Automobile Service Station Mechanic: NONE Pre-Operative Diagnosis LT UPJ OBSTRUCTION Post-Operative Diagnosis SAME Procedure & Operative Findings Date of Procedure 01/02/19 Procedure Performed/Findings CYSTOSCOPY AND LT RETROGRADE UROGRAM Anesthesia Type GENERAL Estimated Blood Loss Estimated blood loss (mL): NONE Specimens/Packing Specimens Removed NONE Packing: NONE CHRISTA DAMICO MD Jan 02, 2019 12:37
--- NOTE | 2019-01-02 12:40 | Discharge Inst-Urology ---
Discharge Inst-Urology Discharge Medications New, Converted, or Re-newed RX: RX on Chart Patient Instructions/Follow Up Plan Please make appointment to been seen in office in 2 weeks. Please schedule "Diuretic Nuclear Renal Scan" as O.P in 2-3 days, label "Lt UPJ obstruction" Increase oral fluids for 48 hours and then as needed. Diet and Activity as tolerated. If questions or concerns contact your physician Or seek help at emergency department. CHRISTA DAMICO MD Jan 02, 2019 12:40
[2019-01-02] MEDS ORDERED: MEPERIDINE (DEMEROL) INJ 50 MG/ML IVP ONE (12:45)
[2019-01-02] MEDS ORDERED: morphine INJ 10 MG/ML 1ML (SYR OR VIAL) IVP ONE (12:45)
[2019-01-02] MEDS ORDERED: ONDANSETRON 4 MG/2 ML (SDV) Z0FRAN IVP PRN (12:45)
[2019-01-02] MEDS ORDERED: IOPAMIDOL 61% 30 ML (ISOVUE 300) VIAL IV ONE (12:47)
[2019-01-02] MEDS ORDERED: SULF1TAB35 PO (12:50)
[2019-01-02] MEDS ORDERED: PHEN-640 PO (12:50)
[2019-01-02 13:35] VITALS: BP 139/91
[2019-01-02] MEDS ORDERED: PHENAZOPYRIDINE 100 MG (PYRIDIUM) TABLET ONE (13:42)
[2019-01-02] MEDS ORDERED: PHENAZOPYRIDINE 100 MG (PYRIDIUM) TABLET PO ONE (14:00)
[2019-01-02 14:05] VITALS: BP 141/85
[2019-01-02 14:30] VITALS: BP 141/85
[2019-01-02 14:35] VITALS: BP 136/73
--- NOTE | 2019-01-02 17:10 | OPERATIVE REPORT ---
DATE OF SERVICE: 01/02/2019 PREOPERATIVE DIAGNOSIS: Left ureteropelvic junction obstruction. POSTOPERATIVE DIAGNOSIS: Left ureteropelvic junction obstruction. OPERATION PERFORMED: Cystoscopy with left retrograde urogram. SURGEON: Guillermo Damico MD ANESTHESIA: General. COMPLICATIONS: None. DESCRIPTION OF PROCEDURE: Under satisfactory general anesthesia, the patient in lithotomy position, genitalia were prepped and draped in the usual sterile fashion. Cystoscope was introduced under vision. The anterior urethra was normal. The prostate revealed some enlargement of the lateral lobes and a median bar causing some bladder neck obstruction. The bladder was entered and revealed some trabeculations. The ureteral orifices were normal in shape, size and configuration with clear efflux, sluggish on the left side. Using the foroblique lens, I passed a catheter into the left ureteral orifice and injected contrast, which showed and confirmed the left UPJ obstruction. I removed the ureteral catheter and ureter was emptying nicely while there was still over the contrast in the pelvocaliceal system. The bladder was evacuated. The cystoscope was removed. The patient tolerated the procedure and anesthesia well and was sent to recovery room in stable condition. PLAN: As an outpatient, diuretic nuclear renal scan and manage accordingly. Job ID: [id number] DocumentID: [id number] Dictated Date: 01/02/2019 12:42:18 Revenue Research Analyst Date: 01/02/2019 17:10:05 Dictated By: GUILLERMO DAMICO MD
--- NOTE | 2019-01-02 18:01 | Diagnostic Imaging Report ---
INDICATION: Left-sided hydronephrosis. FINDINGS: Fluoroscopy was provided for Dr. Azar during a retrograde pyelogram. 34 seconds of fluoroscopy was utilized. Images demonstrate contrast in the left renal collecting system and left renal pelvis which does appear to be dilated. No filling defects are seen. IMPRESSION: Fluoroscopy during left retrograde pyelography. Dictated by: Dictated on workstation # [id number]
== END 2019-01-02 14:40 | disposition home or self-care (01) ==
LOC: SDC 05:51
PROVIDERS: ATTEND Urology
DX: N13.5 Crossing vessel and stricture of ureter without hydronephrosis (principal); N40.0 Benign prostatic hyperplasia without lower urinary tract symptoms; I10 Essential (primary) hypertension; J44.9 Chronic obstructive pulmonary disease, unspecified; G47.33 Obstructive sleep apnea (adult) (pediatric); K21.9 Gastro-esophageal reflux disease without esophagitis; K44.9 Diaphragmatic hernia without obstruction or gangrene; G56.91 Unspecified mononeuropathy of right upper limb; Z79.82 Long term (current) use of aspirin; Z79.899 Other long term (current) drug therapy
CPT/HCPCS: 87081

== ENCOUNTER → 2019-01-08 | Outpatient (CLI) | payer OTHER ==
[~2019-01-08] MED LIST changes: +CATHETER FLUSH 10 ML SYR IV PRN; +FUROSEMIDE 40 MG/4 ML INJ (LASIX) IVP ONE; +FUROSEMIDE 40 MG/4 ML INJ (LASIX) ONE; +PHEN-640 PO; +SULF1TAB35 PO
--- NOTE | 2019-01-08 14:19 | Diagnostic Imaging Report ---
INDICATION: Left UPJ obstruction. TECHNIQUE: Patient was administered 5.3 mCi technetium 99m MAG3 intravenously and imaging over the abdomen was performed. At the midpoint of the exam, patient was administered 40 mg of Lasix intravenously and imaging over the abdomen was performed. FINDINGS: Asymmetric perfusion to the kidneys is noted. There is appears to be prompt normal perfusion to the right kidney. Vague, asymmetric and delayed perfusion to the left kidney is seen. In addition, there is normal tubular uptake throughout the right kidney with prompt excretion of activity into the left renal collecting system and left ureter. Only vague tubular uptake is seen within the left kidney. No definite activity is seen within the left renal collecting system or left ureter. The right kidney renogram curve has a normal downslope. Left renogram curve is flattened. No significant change in curves is seen following Lasix administration. Overall differential renal function is approximately 10% for the left and 90% for the right. IMPRESSION: Marked asymmetry. There is significant delay in perfusion to the left kidney. Only minimal tubular uptake is seen within the left kidney. No definite excretion of activity into the left renal collecting system or left ureter is identified. The right kidney has a normal appearance. Dictated by: Dictated on workstation # [id number]
== END ==
LOC: CARD 08:34
PROVIDERS: ATTEND Urology
DX: N13.5 Crossing vessel and stricture of ureter without hydronephrosis (principal)
CPT/HCPCS: 78708

== ENCOUNTER → 2019-04-09 | Outpatient (CLI) | payer OTHER ==
[~2019-04-09] MED LIST changes: -CATHETER FLUSH 10 ML SYR IV PRN; -FUROSEMIDE 40 MG/4 ML INJ (LASIX) IVP ONE; -FUROSEMIDE 40 MG/4 ML INJ (LASIX) ONE; +RT-ALBUTEROL SULF 2.5 MG/3 ML PRE-MIX VIAL INH ONE; +RT-ALBUTEROL SULF 2.5 MG/3 ML PRE-MIX VIAL ONE; -TRAZ-189 PO; +TRAZ-222 PO
== END ==
LOC: RT 14:07
PROVIDERS: ATTEND Nurse Practitioner Family
DX: J44.9 Chronic obstructive pulmonary disease, unspecified (principal); G47.33 Obstructive sleep apnea (adult) (pediatric)
CPT/HCPCS: 94060; 94726; 94729

== ENCOUNTER 2020-12-16 05:38 | Outpatient (CLI) | payer MEDICARE ==
[~2020-12-16] VITALS: Ht 172.7 cm; Wt 75.7 kg
[~2020-12-16 05:38] MED LIST changes: +AMLO-251 PO; -AMLO10TA7 PO; -ONDA8TAB12 PO; +ONDA8TAB15 PO; -RT-ALBUTEROL SULF 2.5 MG/3 ML PRE-MIX VIAL INH ONE; -RT-ALBUTEROL SULF 2.5 MG/3 ML PRE-MIX VIAL ONE; +SERT-413 PO; -SERT50TA9 PO; -TAMS0.4C98 PO; +TMSL.4C PO; -TRAZ-222 PO; +TRZ50T PO
== END 2020-12-16 16:36 | disposition home or self-care (01) ==
LOC: PREOP 05:38
PROVIDERS: ATTEND Surgery
DX: Z01.818 Encounter for other preprocedural examination (principal)

== ENCOUNTER 2020-12-23 09:16 | Day surgery (SDC) | payer MEDICARE, OTHER ==
[~2020-12-23] VITALS: Ht 172.7 cm; Wt 77.6 kg
[2020-12-23] VITALS (9 sets, daily range): BP systolic 88–123; BP diastolic 55–92
[2020-12-23] MEDS ORDERED: LACTATED RINGERS 1,000 ML IV ONE (09:20)
[2020-12-23] MEDS ORDERED: LACTATED RINGERS 1,000 ML IV STA (09:23)
[2020-12-23] MEDS ORDERED: PROPOFOL INJECTION 50 ML IV ONE (09:59)
[2020-12-23] MEDS ORDERED: MIDAZOLAM 2 MG/2 ML (VERSED) VIAL ONE (09:59)
--- NOTE | 2020-12-23 10:46 | Progress Note-Pre Operative ---
Pre-Operative Progress Note H&P Reviewed The H&P was reviewed, patient examined and no changes noted. Date Seen by Provider: Dec 23, 2020 Time Seen by Provider: 10:46 Date H&P Reviewed: Dec 23, 2020 Time H&P Reviewed: 10:46 Pre-Operative Diagnosis: change in bowel habits ESTEVAN KINGSLEY DO Dec 23, 2020 10:46
--- NOTE | 2020-12-23 11:19 | Progress Note-Post Operative ---
Post-Operative Progess Note Surgeon (s)/Social Contact Worker (s) Surgeon ESTEVAN KINGSLEY DO Social Contact Worker: na Pre-Operative Diagnosis change in bowel habits Post-Operative Diagnosis diverticulosis, sigmoid polyp Procedure & Operative Findings Date of Procedure 12/23/20 Procedure Performed/Findings colonoscopy c hot bx polypectomy x 1 Anesthesia Type per director of housing Estimated Blood Loss Estimated blood loss (mL): none Specimens/Packing Specimens Removed sigmoid polyp ESTEVAN KINGSLEY DO Dec 23, 2020 11:19
--- NOTE | 2020-12-23 11:21 | Discharge Inst-Simple/Standard ---
Discharge Inst-Standard Patient Instructions/Follow Up Plan of Care/Instructions/FU: 2 weeks Jony Activity as Tolerated: Yes Discharge Diet: Regular Diet (high fiber) ESTEVAN KINGSLEY DO Dec 23, 2020 11:21
--- NOTE | 2020-12-23 11:23 | Anesthesia-General Post-Op ---
MAC Patient Condition Mental Status/LOC: Same as Preop Cardiovascular: Satisfactory Nausea/Vomiting: Absent Respiratory: Satisfactory Pain: Controlled Complications: Absent Post Op Complications Complications None Follow Up Care/Instructions Patient Instructions None needed. Anesthesiology Discharge Order Discharge Order Patient is doing well, no complaints, stable vital signs, no apparent adverse anesthesia problems. No complications reported per nursing. WILMAR ARAGON CRNA Dec 23, 2020 11:23
--- NOTE | 2020-12-23 14:38 | OPERATIVE REPORT ---
DATE OF SERVICE: 12/23/2020 PREOPERATIVE DIAGNOSIS: Change in bowel habits. POSTOPERATIVE DIAGNOSES: Diverticulosis, sigmoid colon polyp. PROCEDURE: Colonoscopy with hot biopsy polypectomy x1. SURGEON: Estevan Borges DO ANESTHESIA: Per NET FINISHER. ESTIMATED BLOOD LOSS: None. COMPLICATIONS: None. INDICATIONS: The patient is a 70-year-old male with change in bowel habits. He understands risks and benefits of procedure and wished to proceed with procedure. Consent was signed in the chart. DESCRIPTION OF PROCEDURE: The patient was taken to the endoscopy suite, placed in left lateral recumbent position. Timeout was performed. A digital rectal exam was performed. There were no palpable polyps, masses or ulcerations. Some internal hemorrhoids. Scope was inserted into the rectum and advanced all the way to cecum with minimal difficulty. Prep was adequate. Scope was then slowly retracted back. There were no polyps, masses or ulcerations in the cecum, ascending, transverse, descending colon. In the sigmoid colon, small polyp was present, which hot biopsy polypectomy was performed. Moderate diverticulosis through the sigmoid colon. Once in the rectum, scope was retroflexed noting no other pathology except for internal hemorrhoids. Scope was returned to its normal position, slowly withdrawn until completely removed. The patient tolerated procedure well without any complications, taken to recovery room in stable condition. RECOMMENDATIONS: The patient recommended to have a repeat colonoscopy in 5 years. Recommended high fiber diet. Any issues before that be seen at that time. If hemorrhoids are bothersome, we would recommend hemorrhoidectomy. The patient will follow up in 2 to 3 weeks. Job ID: [id number] DocumentID: [id number] Dictated Date: 12/23/2020 11:24:58 [employer]aker Surveying Date: 12/23/2020 14:36:24 Dictated By: ESTEVAN BORGES DO
== END 2020-12-23 12:27 | disposition home or self-care (01) ==
LOC: ENDO 09:16
PROVIDERS: ATTEND Surgery
DX: K63.5 Polyp of colon (principal); K57.30 Diverticulosis of large intestine without perforation or abscess without bleeding; I10 Essential (primary) hypertension; J44.9 Chronic obstructive pulmonary disease, unspecified; G47.33 Obstructive sleep apnea (adult) (pediatric); G43.909 Migraine, unspecified, not intractable, without status migrainosus; G62.9 Polyneuropathy, unspecified; K44.9 Diaphragmatic hernia without obstruction or gangrene; Z79.899 Other long term (current) drug therapy; Z79.51 Long term (current) use of inhaled steroids; Z79.82 Long term (current) use of aspirin; Z79.02 Long term (current) use of antithrombotics/antiplatelets; Z88.0 Allergy status to penicillin

== ENCOUNTER 2021-01-21 09:55 | Emergency (ER) | payer MEDICARE ==
[~2021-01-21] VITALS: Ht 172 cm; Wt 76.0 kg
[2021-01-21] MEDS ORDERED: diphenhydrAMINE 50 MG/ML INJ (BENADRYL) IV STA (10:00)
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
[2021-01-21] MEDS ORDERED: FAMOTIDINE 20MG/2ML IV (PEPCID) IVP ONE (10:45)
[2021-01-21] MEDS ORDERED: methylPREDNISolone 125 MG (Solu-MEDROL) VIAL IVP ONE (10:45)
[2021-01-21] MEDS ORDERED: EPINEPHrine INJECTION 1 MG/ML AMP IM ONE (10:45)
[2021-01-21] MEDS ORDERED: TRANEXAMIC ACID INJECTION 1,000 MG in NS (IVPB) 100 ML IV ONE (11:30)
[2021-01-21] MEDS ORDERED: GLUCAGON EMERGENCY 1 MG/KIT IM ONE (11:30)
[2021-01-21 12:43] VITALS: BP 146/93
== END 2021-01-21 12:43 | disposition home or self-care (01) ==
LOC: EDUNIT# 09:55 → ER 09:57
DX: T78.3XXA Angioneurotic edema, initial encounter (principal); J44.9 Chronic obstructive pulmonary disease, unspecified; I10 Essential (primary) hypertension; K21.9 Gastro-esophageal reflux disease without esophagitis; N40.0 Benign prostatic hyperplasia without lower urinary tract symptoms; G89.29 Other chronic pain; M54.9 Dorsalgia, unspecified; Z88.0 Allergy status to penicillin; Z88.8 Allergy status to other drugs, medicaments and biological substances; Z87.891 Personal history of nicotine dependence; Z79.82 Long term (current) use of aspirin; Z79.899 Other long term (current) drug therapy; Z79.891 Long term (current) use of opiate analgesic

== ENCOUNTER → 2021-08-25 | Outpatient (CLI) | payer MEDICARE ==
[~2021-08-25] MED LIST changes: +CYCL10TA25 PO; -CYCL10TA9 PO; +DICY20TA PO; -DICY20TA10 PO; +GADOTERATE 0.5 MMOL/ML (CLARISCAN) 15 ML VIAL IV ONE; +ONDA-106 PO; -ONDA8TAB15 PO; -SULF1TAB35 PO; +SULF1TAB38 PO
--- NOTE | 2021-08-25 11:49 | Diagnostic Imaging Report ---
PROCEDURE: MRI left lower extremity with and without contrast. TECHNIQUE: Multiplanar, multisequence pre and post contrast-enhanced MRI of the left lower extremity was accomplished. INDICATION: Palpable abnormality along the lateral aspect of the midfoot. COMPARISON: None available. FINDINGS: A skin marker was placed on the lateral aspect of the foot to demarcate the site of palpable concern. This is located at the junction of the midfoot and hindfoot and there is some focal masslike thickening of the skin measuring 6 x 13 mm. This does have some superficial infiltration of the subcutaneous fat. There is no separate underlying mass lesion. The underlying base of the 5th is normal in appearance. No stress fracture or concerning focal osseous lesion within the hindfoot or midfoot. No osteochondral lesion talar dome. No ankle joint effusion. Sinus tarsi is normal in appearance. No features of plantar fasciitis. No nodular thickening of plantar fascia. Achilles is intact. Peroneus longus and brevis tendons are normal. The posterior tibialis, flexor digitorum longus, flexor hallucis longus, anterior tibialis, extensor hallucis longus and extensor digitorum longus are all normal where visualized. The anterior and lateral ligamentous complexes of the ankle are intact. IMPRESSION: 1. At the site of palpable concern on the lateral midfoot, there is focal masslike thickening of the skin which partially invades the superficial aspect of the subcutaneous fat. This appearance may be due to scar tissue. If there is prior surgery in this region. Otherwise, an inflammatory neoplastic process may give this appearance and correlation with tissue sampling may be warranted. Dictated by: Dictated on workstation # [id number]
== END ==
LOC: RAD 09:21
PROVIDERS: ATTEND Internal Medicine Hematology & Oncology
DX: C44.99 Other specified malignant neoplasm of skin, unspecified (principal)
CPT/HCPCS: 73720

== ENCOUNTER → 2021-09-01 | Outpatient (CLI) | payer MEDICARE ==
[~2021-09-01] MED LIST changes: +BARIUM SUSPENSION 2.1% (VANILLA SILQ) 450 ML PO ONE; +CATHETER FLUSH 10 ML SYR IV PRN; -GADOTERATE 0.5 MMOL/ML (CLARISCAN) 15 ML VIAL IV ONE; +HOLD METFORMIN - RECEIVED CONTRAST 20 ML VIAL IV SCH; +IOHEXOL 350 MG/ML 100 ML (OMNIPAQUE 350) VIAL IV ONE; +NS 100 ML (IVPB) BAG IV ONE
--- NOTE | 2021-09-01 10:27 | Diagnostic Imaging Report ---
PROCEDURE: CT chest with contrast, CT abdomen and pelvis with and without contrast. TECHNIQUE: Pre and post intravenous contrast axial imaging of the abdomen and pelvis and post contrast axial imaging of the chest were performed. Auto Exposure Controls were utilized during the CT exam to meet ALARA standards for radiation dose reduction. INDICATION: History of cutaneous malignancy. COMPARISON: 12/19/2018. FINDINGS: CHEST: A 5 mm juxta fissural nodule in the left lung is stable abd believed benign, probably a lymph node. No suspicious lung mass. No findings suggestive of pulmonary parenchymal metastatic disease. There is no suspicious thoracic lymph node. No focal pneumonia. No effusion or pneumothorax. No destructive or suspicious osseous lesion. ABDOMEN/PELVIS: Scattered cysts in the liver are stable. No solid or suspicious liver mass. The adrenals are negative. The pancreas is unremarkable. The spleen is unremarkable. The benign mesenteric fatty nodule in the right hemiabdomen is a chronic and likely old omental infarct or other chronic benign process. Noninflamed diverticulosis of the sigmoid is present. There are prior surgical changes to the anterior abdominal wall without recurrent hernia. The prostate, seminal vesicles, and urinary bladder are nonacute. There is no appendicitis or diverticulitis. This patient has progressive but chronic appearing left hydronephrosis. Transition at the ureteropelvic junction with no visualized stone. No urinoma or perinephric stranding or edema. The unobstructed right kidney has a simple cortical cyst and a nonobstructing calculus within a lower pole calyx, chronic. There is no abdominal, pelvic, mesenteric, or retroperitoneal lymphadenopathy. There is no acute or suspect bony lesion. IMPRESSION: CHEST: Stable benign interfissural nodule on the left. No evidence of metastatic disease or acute pathology. ABDOMEN/PELVIS: No findings of metastatic disease. Progressive but chronic left hydronephrosis. Transition at the ureteropelvic junction. Nonobstructing lower pole calculus right kidney. No left-sided stone disease. No lymphadenopathy. Benign hepatorenal cysts, chronic. Noninflamed diverticulosis. Dictated by: Dictated on workstation # [id number]
== END ==
LOC: RAD 09:24
PROVIDERS: ATTEND Internal Medicine Hematology & Oncology
DX: N13.30 Unspecified hydronephrosis (principal); N20.0 Calculus of kidney; N28.1 Cyst of kidney, acquired; K76.89 Other specified diseases of liver; K57.30 Diverticulosis of large intestine without perforation or abscess without bleeding; C44.99 Other specified malignant neoplasm of skin, unspecified; R91.1 Solitary pulmonary nodule
CPT/HCPCS: 71260; 74178

== ENCOUNTER 2021-09-03 09:18 | Outpatient (RCR) | payer MEDICARE ==
[2021-08-20 10:17] LABS: BASOPHILS # (AUTO) 0.1 10^3/uL (0.0-0.1); BASOPHILS % (AUTO) 1 % (0-10); EOSINOPHILS # (AUTO) 0.2 10^3/uL (0.0-0.3); EOSINOPHILS % (AUTO) 3 % (0-10); HEMATOCRIT 50 % (40-54); HEMOGLOBIN 16.7 g/dL (13.3-17.7); LYMPHOCYTES # (AUTO) 0.9 10^3/uL (1.0-4.0); LYMPHOCYTES % (AUTO) 12 % (12-44); MEAN CORPUSCULAR HEMOGLOBIN 31 pg (25-34); MEAN CORPUSCULAR HGB CONC 34 g/dL (32-36); MEAN CORPUSCULAR VOLUME 93 fL (80-99); MEAN PLATELET VOLUME 9.5 fL (9.0-12.2); MONOCYTES # (AUTO) 0.5 10^3/uL (0.0-1.0); MONOCYTES % (AUTO) 7 % (0-12); NEUTROPHILS # (AUTO) 5.8 10^3/uL (1.8-7.8); NEUTROPHILS % (AUTO) 76 % (42-75); PLATELET COUNT 193 10^3/uL (130-400); WHITE BLOOD COUNT 7.6 10^3/uL (4.3-11.0)
[2021-08-20 10:35] LABS: BILIRUBIN,TOTAL 0.5 MG/DL (0.1-1.0); CALCIUM 9.4 MG/DL (8.5-10.1); CREATININE SERUM 1.48 MG/DL (0.60-1.30); TOTAL PROTEIN 7.1 GM/DL (6.4-8.2)
[~2021-09-03 09:18] MED LIST changes: -BARIUM SUSPENSION 2.1% (VANILLA SILQ) 450 ML PO ONE; -CATHETER FLUSH 10 ML SYR IV PRN; -HOLD METFORMIN - RECEIVED CONTRAST 20 ML VIAL IV SCH; -IOHEXOL 350 MG/ML 100 ML (OMNIPAQUE 350) VIAL IV ONE; -NS 100 ML (IVPB) BAG IV ONE; +NS IV 1000 ML (CANCER CTR) 1,000 ML ONE
== END 2021-09-18 | disposition home or self-care (01) ==
LOC: ONC 09:18
PROVIDERS: ATTEND Internal Medicine Hematology & Oncology
DX: C44.99 Other specified malignant neoplasm of skin, unspecified (principal); I10 Essential (primary) hypertension; J44.9 Chronic obstructive pulmonary disease, unspecified; R53.82 Chronic fatigue, unspecified
CPT/HCPCS: 80053; 83615; 85025; G0463; 36591; 96360; 96368; 99213; 99214

== ENCOUNTER → 2021-12-10 | Outpatient (CLI) | payer MEDICARE ==
[~2021-12-10] MED LIST changes: -NS IV 1000 ML (CANCER CTR) 1,000 ML ONE
== END ==
LOC: WOUNDCARE 14:03
PROVIDERS: ATTEND Family Medicine
DX: T81.31XA Disruption of external operation (surgical) wound, not elsewhere classified, initial encounter (principal); T86.828 Other complications of skin graft (allograft) (autograft); L03.115 Cellulitis of right lower limb; N18.30 Chronic kidney disease, stage 3 unspecified; I70.234 Atherosclerosis of native arteries of right leg with ulceration of heel and midfoot; L74.8 Other eccrine sweat disorders
CPT/HCPCS: 87070; 87077; 87186; 87205; 97597; A6260; G0463

== ENCOUNTER → 2021-12-14 | Outpatient (CLI) | payer MEDICARE ==
--- NOTE | 2021-12-14 13:34 | Diagnostic Imaging Report ---
Exam: MRI left foot without contrast. Date: December 14, 2021. 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 Nonhealing wound. Comparison: MRI left foot August 25, 2021. Technique: Multiple noncontrast MRI sequences of the left foot were obtained. Findings: The fifth metatarsal and fifth digit phalanges are absent. There is irregularity of the skin contour laterally centered in the region of the base of the fourth metatarsal. There is contiguous underlying abnormal signal within the soft tissues. Sensitivity for detection of fluid collection or abscess is limited given lack of postcontrast imaging. There is a fairly focal area of T2 hyperintense signal measuring 10 x 9 mm in axial extent and approximately 24 mm in proximal to distal length along the lateral aspect of the fourth metatarsal. This is nearly directly contacting the bone. There are foci of low signal within the soft tissues which could relate to soft tissue gas or relate to susceptibility from prior surgery. Calcifications would also be considered. There is no identified T1 marrow signal loss or aggressive bone destruction. There is low-level edema in the base of the fourth metatarsal and lateral and distal aspect of the cuboid. There is nonspecific diffuse subcutaneous edema at the level of the foot. Joint spaces appear well preserved. There is no joint effusion. There are limitations for assessment of residual or recurrent malignancy given lack of postcontrast imaging. The visualized tendons are intact and without evidence of tenosynovitis. The visualized portions of the plantar fascia are intact. Lisfranc ligament proper is intact. Impression: 1. Contiguous abnormal signal in the soft tissues laterally where there is overlying irregularity of the skin contour. There is a focal area of fluid signal concerning for focal fluid collection or abscess measuring 10 x 9 x 24 mm in extent. 2. Edema-like signal in the base of the fourth metatarsal and lateral and distal aspect of the cuboid which is nonspecific. There is no T1 marrow signal loss or bone destruction to specifically diagnose osteomyelitis although early osteomyelitis is a consideration. 3. Nondiagnostic assessment for residual or recurrent skin malignancy, especially without postcontrast imaging. Dictated by: Dictated on workstation # [id number]
== END ==
LOC: RAD 12:30
PROVIDERS: ATTEND Family Medicine
DX: T81.31XA Disruption of external operation (surgical) wound, not elsewhere classified, initial encounter (principal); T86.828 Other complications of skin graft (allograft) (autograft); L03.115 Cellulitis of right lower limb; I70.234 Atherosclerosis of native arteries of right leg with ulceration of heel and midfoot; N18.30 Chronic kidney disease, stage 3 unspecified; L74.8 Other eccrine sweat disorders; Z85.828 Personal history of other malignant neoplasm of skin

== ENCOUNTER → 2021-12-16 | Outpatient (CLI) | payer MEDICARE | LOC: WOUNDCARE 14:52 | PROVIDERS: ATTEND Family Medicine | DX: T81.31XA Disruption of external operation (surgical) wound, not elsewhere classified, initial encounter (principal); T86.828 Other complications of skin graft (allograft) (autograft); L03.115 Cellulitis of right lower limb; N18.30 Chronic kidney disease, stage 3 unspecified; I70.234 Atherosclerosis of native arteries of right leg with ulceration of heel and midfoot; L74.8 Other eccrine sweat disorders; I96 Gangrene, not elsewhere classified | CPT/HCPCS: 11042; A6197; G0463 ==

== ENCOUNTER 2021-12-17 09:42 | Outpatient (CLI) | payer MEDICARE ==
[~2021-12-17] VITALS: Ht 172.7 cm; Wt 76.0 kg
[2021-12-17 10:22] VITALS: BP 132/95
[2021-12-17] MEDS ORDERED: TOBRAMYCIN IV SCH (11:00)
[2021-12-17] MEDS ORDERED: NS IV SCH (11:00)
[2021-12-17 11:18] LABS: ALBUMIN 3.5 GM/DL (3.2-4.5); POTASSIUM 3.8 MMOL/L (3.6-5.0)
[2021-12-17 11:20] LABS: TOTAL PROTEIN 6.4 GM/DL (6.4-8.2)
[2021-12-17 11:22] LABS: BILIRUBIN,TOTAL 0.5 MG/DL (0.1-1.0)
[2021-12-17 11:24] LABS: CREATININE SERUM 1.12 MG/DL (0.60-1.30)
[2021-12-17] MEDS ORDERED: TROUGH ORDER-PHARMACY XX NR (17:00)
== END 2021-12-17 12:35 ==
LOC: SDC 09:42
PROVIDERS: ATTEND Family Medicine
DX: Z45.2 Encounter for adjustment and management of vascular access device (principal); L03.115 Cellulitis of right lower limb
CPT/HCPCS: 36569; 76937; 80053; 85652; 86141; 96365; C1751; 36415

== ENCOUNTER → 2021-12-17 | Outpatient (CLI) | payer OTHER | LOC: LAB 07:45 | PROVIDERS: ATTEND Nurse Practitioner Family | DX: T81.31XA Disruption of external operation (surgical) wound, not elsewhere classified, initial encounter (principal); L03.115 Cellulitis of right lower limb; I70.234 Atherosclerosis of native arteries of right leg with ulceration of heel and midfoot; N18.30 Chronic kidney disease, stage 3 unspecified; J45.909 Unspecified asthma, uncomplicated | CPT/HCPCS: 36415; 80200 ==

== ENCOUNTER → 2021-12-21 | Outpatient (CLI) | payer MEDICARE ==
[2021-12-21 11:35] LABS: BASOPHILS # (AUTO) 0.1 10^3/uL (0.0-0.1); BASOPHILS % (AUTO) 1 % (0-10); EOSINOPHILS # (AUTO) 0.4 10^3/uL (0.0-0.3); EOSINOPHILS % (AUTO) 6 % (0-10); HEMATOCRIT 41 % (40-54); HEMOGLOBIN 13.7 g/dL (13.3-17.7); LYMPHOCYTES # (AUTO) 0.9 10^3/uL (1.0-4.0); LYMPHOCYTES % (AUTO) 13 % (12-44); MEAN CORPUSCULAR HEMOGLOBIN 31 pg (25-34); MEAN CORPUSCULAR HGB CONC 33 g/dL (32-36); MEAN CORPUSCULAR VOLUME 92 fL (80-99); MEAN PLATELET VOLUME 9.8 fL (9.0-12.2); MONOCYTES # (AUTO) 0.5 10^3/uL (0.0-1.0); MONOCYTES % (AUTO) 8 % (0-12); NEUTROPHILS # (AUTO) 4.8 10^3/uL (1.8-7.8); NEUTROPHILS % (AUTO) 71 % (42-75); PLATELET COUNT 189 10^3/uL (130-400); WHITE BLOOD COUNT 6.7 10^3/uL (4.3-11.0)
[2021-12-21 11:45] LABS: ALBUMIN 3.3 GM/DL (3.2-4.5); POTASSIUM 3.7 MMOL/L (3.6-5.0)
[2021-12-21 11:46] LABS: CALCIUM 8.5 MG/DL (8.5-10.1)
[2021-12-21 11:47] LABS: TOTAL PROTEIN 5.5 GM/DL (6.4-8.2)
[2021-12-21 11:49] LABS: BILIRUBIN,TOTAL 0.4 MG/DL (0.1-1.0)
[2021-12-21 11:51] LABS: CREATININE SERUM 1.29 MG/DL (0.60-1.30)
[2021-12-21 11:52] LABS: TOBRAMYCIN,TROUGH 0.9 UG/ML (<2.0)
== END ==
LOC: LABNPT 11:29
PROVIDERS: ATTEND Family Medicine
DX: T81.31XA Disruption of external operation (surgical) wound, not elsewhere classified, initial encounter (principal); T86.828 Other complications of skin graft (allograft) (autograft); L03.115 Cellulitis of right lower limb; N18.9 Chronic kidney disease, unspecified
CPT/HCPCS: 80053; 80200; 85025

== ENCOUNTER → 2021-12-23 | Outpatient (CLI) | payer MEDICARE | LOC: WOUNDCARE 12:46 | PROVIDERS: ATTEND Family Medicine | DX: L03.115 Cellulitis of right lower limb (principal); T81.31XA Disruption of external operation (surgical) wound, not elsewhere classified, initial encounter; T86.828 Other complications of skin graft (allograft) (autograft); N18.30 Chronic kidney disease, stage 3 unspecified; I96 Gangrene, not elsewhere classified | CPT/HCPCS: 11042; G0463 ==

== ENCOUNTER 2021-12-24 09:51 | Outpatient (CLI) | payer MEDICARE ==
[~2021-12-24] VITALS: Ht 177.8 cm; Wt 76.0 kg
[2021-12-24] MEDS ORDERED: NS (IVPB) 50 ML ONE (10:03)
[2021-12-24] MEDS ORDERED: CEFEPIME 2 GM/20 ML (MAXIPIME) VIAL ONE (10:03)
[2021-12-24 10:24] VITALS: BP 131/89
[2021-12-24 13:32] VITALS: BP 131/89
[2021-12-24] MEDS ORDERED: CEFEPIME 2,000 MG/NS 50 ML IVPB IV SCH ×2 (21:00)
== END 2021-12-24 11:00 | disposition home or self-care (01) ==
LOC: SDC 09:51
PROVIDERS: ATTEND Family Medicine
DX: T81.31XA Disruption of external operation (surgical) wound, not elsewhere classified, initial encounter (principal); T86.828 Other complications of skin graft (allograft) (autograft); L03.115 Cellulitis of right lower limb; N18.30 Chronic kidney disease, stage 3 unspecified; I70.234 Atherosclerosis of native arteries of right leg with ulceration of heel and midfoot; L74.8 Other eccrine sweat disorders; H91.03 Ototoxic hearing loss, bilateral
CPT/HCPCS: 96365

== ENCOUNTER → 2021-12-28 | Outpatient (CLI) | payer MEDICARE ==
[2021-12-28 17:59] LABS: BASOPHILS # (AUTO) 0.1 10^3/uL (0.0-0.1); BASOPHILS % (AUTO) 1 % (0-10); EOSINOPHILS # (AUTO) 0.3 10^3/uL (0.0-0.3); EOSINOPHILS % (AUTO) 5 % (0-10); HEMATOCRIT 42 % (40-54); HEMOGLOBIN 13.9 g/dL (13.3-17.7); LYMPHOCYTES # (AUTO) 1.3 10^3/uL (1.0-4.0); LYMPHOCYTES % (AUTO) 17 % (12-44); MEAN CORPUSCULAR HEMOGLOBIN 30 pg (25-34); MEAN CORPUSCULAR HGB CONC 33 g/dL (32-36); MEAN CORPUSCULAR VOLUME 92 fL (80-99); MONOCYTES # (AUTO) 0.8 10^3/uL (0.0-1.0); MONOCYTES % (AUTO) 11 % (0-12); NEUTROPHILS # (AUTO) 4.9 10^3/uL (1.8-7.8); NEUTROPHILS % (AUTO) 65 % (42-75); PLATELET COUNT 215 10^3/uL (130-400); WHITE BLOOD COUNT 7.5 10^3/uL (4.3-11.0)
[2021-12-28 18:09] LABS: ALBUMIN 3.6 GM/DL (3.2-4.5); POTASSIUM 4.2 MMOL/L (3.6-5.0)
[2021-12-28 18:10] LABS: CALCIUM 8.6 MG/DL (8.5-10.1)
[2021-12-28 18:12] LABS: TOTAL PROTEIN 5.8 GM/DL (6.4-8.2)
[2021-12-28 18:14] LABS: BILIRUBIN,TOTAL 0.3 MG/DL (0.1-1.0)
[2021-12-28 18:15] LABS: CREATININE SERUM 1.39 MG/DL (0.60-1.30)
[2021-12-28 19:52] LABS: EOSINOPHILS % (MANUAL) 6 %; LYMPHOCYTES % (MANUAL) 17 %; MONOCYTES % (MANUAL) 9 %; NEUTROPHILS % (MANUAL) 68 %; RBC MORPH NORMAL
== END ==
LOC: LABNPT 17:54
PROVIDERS: ATTEND Family Medicine
DX: N18.9 Chronic kidney disease, unspecified (principal); T81.31XA Disruption of external operation (surgical) wound, not elsewhere classified, initial encounter; T86.828 Other complications of skin graft (allograft) (autograft); L03.115 Cellulitis of right lower limb
CPT/HCPCS: 80053; 85007; 85027

== ENCOUNTER → 2021-12-31 | Outpatient (CLI) | payer MEDICARE | LOC: WOUNDCARE 14:17 | PROVIDERS: ATTEND Family Medicine | DX: T81.31XA Disruption of external operation (surgical) wound, not elsewhere classified, initial encounter (principal); T86.828 Other complications of skin graft (allograft) (autograft); N18.30 Chronic kidney disease, stage 3 unspecified; L74.8 Other eccrine sweat disorders; L97.522 Non-pressure chronic ulcer of other part of left foot with fat layer exposed; M86.172 Other acute osteomyelitis, left ankle and foot; I96 Gangrene, not elsewhere classified | CPT/HCPCS: 11042; G0463 ==

== ENCOUNTER → 2022-01-04 | Outpatient (CLI) | payer MEDICARE ==
[2022-01-04 10:51] LABS: BASOPHILS # (AUTO) 0.1 10^3/uL (0.0-0.1); BASOPHILS % (AUTO) 2 % (0-10); EOSINOPHILS # (AUTO) 0.2 10^3/uL (0.0-0.3); EOSINOPHILS % (AUTO) 3 % (0-10); HEMATOCRIT 44 % (40-54); HEMOGLOBIN 14.6 g/dL (13.3-17.7); LYMPHOCYTES # (AUTO) 0.9 10^3/uL (1.0-4.0); LYMPHOCYTES % (AUTO) 13 % (12-44); MEAN CORPUSCULAR HEMOGLOBIN 30 pg (25-34); MEAN CORPUSCULAR HGB CONC 33 g/dL (32-36); MEAN CORPUSCULAR VOLUME 92 fL (80-99); MEAN PLATELET VOLUME 9.8 fL (9.0-12.2); MONOCYTES # (AUTO) 0.5 10^3/uL (0.0-1.0); MONOCYTES % (AUTO) 8 % (0-12); NEUTROPHILS # (AUTO) 4.9 10^3/uL (1.8-7.8); NEUTROPHILS % (AUTO) 72 % (42-75); PLATELET COUNT 196 10^3/uL (130-400); WHITE BLOOD COUNT 6.7 10^3/uL (4.3-11.0)
[2022-01-04 11:05] LABS: ALBUMIN 3.6 GM/DL (3.2-4.5); BILIRUBIN,TOTAL 0.3 MG/DL (0.1-1.0); CREATININE SERUM 1.37 MG/DL (0.60-1.30); POTASSIUM 4.3 MMOL/L (3.6-5.0); TOTAL PROTEIN 6.2 GM/DL (6.4-8.2)
[2022-01-04 11:43] LABS: BAND NEUTROPHILS 1 %; EOSINOPHILS % (MANUAL) 4 %; LYMPHOCYTES % (MANUAL) 11 %; MONOCYTES % (MANUAL) 6 %; NEUTROPHILS % (MANUAL) 78 %; RBC MORPH NORMAL
== END ==
LOC: LABNPT 10:41
PROVIDERS: ATTEND Family Medicine
DX: N18.9 Chronic kidney disease, unspecified (principal); T81.31XA Disruption of external operation (surgical) wound, not elsewhere classified, initial encounter; T86.828 Other complications of skin graft (allograft) (autograft); L03.115 Cellulitis of right lower limb
CPT/HCPCS: 80053; 85007; 85027

== ENCOUNTER → 2022-01-04 | Outpatient (CLI) | payer MEDICARE ==
--- NOTE | 2022-01-04 13:30 | Diagnostic Imaging Report ---
PROCEDURE: US Renal Bilateral. TECHNIQUE: Multiple Real-time grayscale images were obtained over the kidneys in various projections bilaterally. INDICATION: Chronic kidney disease stage 3B. Nephrolithiasis. FINDINGS: The right kidney measures 10.9 x 5.1 x 6.0 cm and the left kidney measures 11.3 x 6.7 x 6.6 cm. The cortical thickness and echogenicity are normal in the right kidney. No calculus or hydronephrosis on the right is detected. There appears to be significant hydronephrosis on the left with significant cortical thinning. This correlates with the CT study from 09/01/2021. The left renal pelvis is markedly dilated. No calculi are identified. The bladder volume is 63 mL. No post void volume is seen. The ureteral jets were not visualized. IMPRESSION: Severe chronic appearing left-sided hydronephrosis with cortical thinning, similar to the CT study from 09/01/2021. No right-sided hydronephrosis is detected. No calculi are identified. Dictated by: Dictated on workstation # [id number]
== END ==
LOC: RAD 12:30
PROVIDERS: ATTEND Internal Medicine Nephrology
DX: N18.32 Chronic kidney disease, stage 3b (principal); N13.2 Hydronephrosis with renal and ureteral calculous obstruction
CPT/HCPCS: 76770

== ENCOUNTER → 2022-01-07 | Outpatient (CLI) | payer MEDICARE | LOC: WOUNDCARE 14:02 | PROVIDERS: ATTEND Family Medicine | DX: T81.31XA Disruption of external operation (surgical) wound, not elsewhere classified, initial encounter (principal); T86.828 Other complications of skin graft (allograft) (autograft); L97.522 Non-pressure chronic ulcer of other part of left foot with fat layer exposed; N18.30 Chronic kidney disease, stage 3 unspecified; L74.8 Other eccrine sweat disorders; M86.172 Other acute osteomyelitis, left ankle and foot; I96 Gangrene, not elsewhere classified | CPT/HCPCS: 11042; G0463 ==

== ENCOUNTER → 2022-01-14 | Outpatient (CLI) | payer MEDICARE | LOC: WOUNDCARE 14:14 | PROVIDERS: ATTEND Family Medicine | DX: T81.31XA Disruption of external operation (surgical) wound, not elsewhere classified, initial encounter (principal); T86.828 Other complications of skin graft (allograft) (autograft); N18.30 Chronic kidney disease, stage 3 unspecified; L74.8 Other eccrine sweat disorders; L97.522 Non-pressure chronic ulcer of other part of left foot with fat layer exposed; M86.172 Other acute osteomyelitis, left ankle and foot; I96 Gangrene, not elsewhere classified | CPT/HCPCS: 11042; G0463 ==

== ENCOUNTER 2022-01-20 09:03 | Emergency (ER) | payer MEDICARE ==
[~2022-01-20] VITALS: Ht 172 cm; Wt 108.8 kg
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
[2022-01-20] MEDS ORDERED: ONDANSETRON 4 MG/2 ML (SDV) Z0FRAN IVP ONE (09:45)
[2022-01-20] MEDS ORDERED: NS IV 1000 ML 1,000 ML IV SCH (09:45)
[2022-01-20 10:09] LABS: BASOPHILS % (AUTO) 1 % (0-10); EOSINOPHILS # (AUTO) 0.3 10^3/uL (0.0-0.3); EOSINOPHILS % (AUTO) 4 % (0-10); HEMATOCRIT 45 % (40-54); HEMOGLOBIN 15.1 g/dL (13.3-17.7); LYMPHOCYTES # (AUTO) 0.7 10^3/uL (1.0-4.0); LYMPHOCYTES % (AUTO) 11 % (12-44); MEAN CORPUSCULAR HEMOGLOBIN 30 pg (25-34); MEAN CORPUSCULAR HGB CONC 33 g/dL (32-36); MEAN CORPUSCULAR VOLUME 91 fL (80-99); MEAN PLATELET VOLUME 9.8 fL (9.0-12.2); MONOCYTES # (AUTO) 0.7 10^3/uL (0.0-1.0); MONOCYTES % (AUTO) 10 % (0-12); NEUTROPHILS # (AUTO) 4.8 10^3/uL (1.8-7.8); NEUTROPHILS % (AUTO) 73 % (42-75); PLATELET COUNT 154 10^3/uL (130-400); WHITE BLOOD COUNT 6.5 10^3/uL (4.3-11.0)
[2022-01-20 10:28] LABS: ALBUMIN 3.5 GM/DL (3.2-4.5); BILIRUBIN,TOTAL 0.5 MG/DL (0.1-1.0); CALCIUM 8.7 MG/DL (8.5-10.1); CREATININE SERUM 1.26 MG/DL (0.60-1.30); POTASSIUM 3.8 MMOL/L (3.6-5.0); TOTAL PROTEIN 6.1 GM/DL (6.4-8.2)
[2022-01-20] MEDS ORDERED: fentaNYL INJ 100 MCG/2 ML AMP IVP ONE (12:00)
--- NOTE | 2022-01-20 12:48 | Diagnostic Imaging Report ---
PROCEDURE: CT abdomen and pelvis without contrast. TECHNIQUE: Multiple contiguous axial images were obtained through the abdomen and pelvis without the use of intravenous contrast. Auto Exposure Controls were utilized during the CT exam to meet ALARA standards for radiation dose reduction. INDICATION: Diarrhea. Correlation is made with prior CT from 09/01/2021. FINDINGS: The lung bases are clear. The liver contains low-attenuation lesions suggestive of cysts. The gallbladder is surgically absent. No biliary ductal dilatation is seen. Pancreas and spleen are unremarkable. No adrenal mass is detected. A right kidney contains a tiny nonobstructing calculus in the lower pole. Small cortical low-attenuation lesion upper pole right kidney appears stable. There is continued significant chronic appearing hydronephrosis on the left with marked cortical thinning present. 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 Ureter does not appear to be dilated. Aorta is non-aneurysmal. No central retroperitoneal or mesenteric lymphadenopathy is identified. The small and large bowel loops are normal caliber. No obstruction is seen. No significant wall thickening is present to suggest enteritis or colitis. There is moderate amount of diverticula present within the sigmoid colon but no evidence of acute diverticulitis. No free fluid or fluid collection is seen. The bladder is unremarkable. The prostate appears enlarged. IMPRESSION: 1. Hepatic and renal cysts as well as nonobstructing right renal calculus. 2. Chronic left-sided hydronephrosis with renal cortical thinning. 3. Uncomplicated diverticulosis. 4. Prostatomegaly. 5. No acute feature in the abdomen or pelvis is identified. Dictated by: Dictated on workstation # [id number]
[2022-01-20] MEDS ORDERED: METR-145 PO (13:04)
[2022-01-20 13:10] VITALS: BP 126/78
[2022-01-20] MEDS ORDERED: ACHD5005 PO (13:10)
[2022-01-20] MEDS ORDERED: metroNIDAZOLE 500 MG (FLAGYL) TAB PO ONE (13:15)
== END 2022-01-20 13:10 | disposition home or self-care (01) ==
LOC: EDUNIT# 09:03 → ER 09:04
DX: K52.1 Toxic gastroenteritis and colitis (principal); T36.1X5A Adverse effect of cephalosporins and other beta-lactam antibiotics, initial encounter; F17.200 Nicotine dependence, unspecified, uncomplicated; M86.9 Osteomyelitis, unspecified; Z95.9 Presence of cardiac and vascular implant and graft, unspecified
CPT/HCPCS: 36415; 74176; 80053; 85025; 99283

== ENCOUNTER → 2022-01-21 | Outpatient (CLI) | payer MEDICARE ==
[~2022-01-21] MED LIST changes: +METR-145 PO
== END ==
LOC: LAB 11:19
PROVIDERS: ATTEND Emergency Medicine
DX: R19.7 Diarrhea, unspecified (principal)
CPT/HCPCS: 87015; 87045; 87046; 87324; 87328; 87329; 87449; 87899

== ENCOUNTER → 2022-01-25 | Outpatient (CLI) | payer MEDICARE | LOC: WOUNDCARE 11:57 | PROVIDERS: ATTEND Family Medicine | DX: T86.828 Other complications of skin graft (allograft) (autograft) (principal); N18.30 Chronic kidney disease, stage 3 unspecified; L74.8 Other eccrine sweat disorders; M86.172 Other acute osteomyelitis, left ankle and foot | CPT/HCPCS: 99213 ==

== ENCOUNTER → 2022-02-02 | Outpatient (CLI) | payer MEDICARE ==
[~2022-02-02] MED LIST changes: +GADOTERATE 0.5 MMOL/ML (CLARISCAN) 15 ML VIAL IV ONE
--- NOTE | 2022-02-02 14:37 | Diagnostic Imaging Report ---
Exam: MRI left foot without contrast. Date: February 02, 2022. Indication: 71-year-old male, provided history of left foot malignancy. Foot ulcers. Comparison: MRI left foot without contrast December 14, 2021. MRI left foot without with intravenous contrast August 25, 2021. Technique: Multiple noncontrast MRI sequences of the foot were obtained. Findings: There are limitations for assessment of residual or recurrent malignancy given the lack of postcontrast imaging. There is abnormal signal within the subcutaneous tissues extending to the skin surface laterally located extending from the proximal margin of the included [id number] which is at the level of the distal cuboid to the level of the distal aspect of the fourth metatarsal. The fifth metatarsal and fifth digit phalanges are absent. This area of soft tissue abnormality includes the region of previous abnormality and history of malignancy. There is susceptibility artifact in this region at the level of the proximal metadiaphysis of the fourth metatarsal within the lateral subcutaneous tissues which may reflect a soft tissue gas or procedural related changes. A radiopaque foreign body would also be considered. The abnormal signal within the subcutaneous tissues does appear to directly contact the distal cuboid and fourth metatarsal base such as on long axis TI sequence image 10. There is nonspecific edema-like signal in the distal cuboid without T1 marrow signal loss or bone destruction. There is edema-like signal in the middle cuneiform with T1 marrow signal loss. There is no visible fracture line. This is new since August 25, 2021. This is also new since December 14, 2021. The edema-like signal in the distal cuboid is present on December 14, 2021. The Lisfranc ligament proper is intact. The imaged portions of the peroneus longus tendon are intact. The posterior flexor tendons are grossly intact in their imaged extent. The visualized portions of the plantar fascia are intact. There is very low level edema-like signal in the second, third, and fourth metatarsal heads without visible fracture line. Impression: 1. Abnormal signal within the lateral subcutaneous tissues extending to the skin surface at site of prior malignancy extending from the proximal margin of the field of view which is the level of the cuboid to the distal aspect of the fourth metatarsal. This is a notable increase in extent of abnormal signal since August 25, 2021 although is seen and largely similar to December 14, 2021. There is substantial limitation for evaluation of residual or recurrent malignancy from lack of postcontrast imaging. This potentially could reflect recurrent malignancy although an infectious or inflammatory process is also in the differential diagnosis. Particularly given persistence, clinical correlation and potential sampling is recommended. 2. Edema-like signal in the distal cuboid is similar to recent comparison MRI and is nonspecific. There is no overt T1 marrow signal loss or bone destruction to specifically diagnose osteomyelitis or suggest contiguous spread of malignancy. 3. Abnormal edema-like signal in the middle cuneiform which is new since December 14, 2021. Without an overlying skin ulcer, this is unlikely reflect osteomyelitis. Metastatic disease to this location would be uncommon. This may reflect stress reaction. Dictated by: Dictated on workstation # [id number]
--- NOTE | 2022-02-02 17:00 | Diagnostic Imaging Report ---
EXAMINATION: Magnetic resonance imaging of the left ankle without contrast. DATE: February 02, 2022. COMPARISON: MRI left foot December 14, 2021. MRI left foot August 25, 2021. HISTORY: 71-year-old male, history of malignancy at the level of the left foot. History of ulcers. TECHNIQUE: Magnetic Resonance Imaging sequences were performed of the ankle without contrast. FINDINGS: TENDONS AND LIGAMENTS: The Achilles tendon is unremarkable. The posterior flexor tendons - tibialis posterior, flexor digitorum longus, flexor hallucis longus - are intact. The peroneal tendons - peroneus longus and peroneus brevis - are intact. The anterior extensor tendons - tibialis anterior, extensor hallucis longus, and extensor digitorum longus tendons - are intact. The anterior and posterior syndesmotic ligaments are intact. The anterior talofibular, posterior talofibular, calcaneofibular, and deltoid ligaments are intact. The plantar fascia is intact. JOINTS: There are very tiny tibiotalar osteophytes without pronounced tibiotalar joint space loss. There is no tibiotalar joint effusion. The subtalar joints are intact. BONE: There is edema-like signal in the middle cuneiform which also demonstrates T1 marrow signal loss. There is no visible fracture line. There is edema-like signal in the lateral aspect of the cuboid without identified T1 marrow signal loss or fracture line. There is degenerative related marrow edema in the medial talar dome. The marrow signal changes in the middle cuneiform are new since the recent comparison MRI of December 14, 2021. The edema-like signal in the cuboid is unchanged. BURSAE AND SOFT TISSUES: There is limited evaluation for residual or recurrent malignancy given lack of post contrast imaging. There is a contour deformity of the inferior and lateral soft tissues centered in the region of the proximal to distal aspect of the calcaneocuboid articulation. There is additional underlying T1 hypointense signal. The proximal extent is near the level of the peroneal tubercle of the calcaneus with distal extent at the distal aspect of the fourth metatarsal correlating with same day MRI foot exam. The comparison MRI on December 14, 2021 did not extend to the level of the peroneal tubercle of the calcaneus. The additional extent is largely unchanged. IMPRESSION: 1. Skin contour abnormality with underlying abnormal signal involving the volar and lateral aspect of the soft tissues with proximal extent at the level of the peroneal tubercle of the calcaneus and distal extent at the level of the distal aspect of the fourth metatarsal. This is at least as large as present on December 14, 2021. There is limited assessment for residual or recurrent skin malignancy given lack of post contrast imaging. There is concern that this may reflect residual or recurrent malignancy. Findings relating to soft tissue ulcer and infectious or inflammatory etiology are also considered. Correlation clinically is needed as well as potential sampling, especially given persistence. 2. No identified focal fluid collection or abscess. 3. Edema-like signal in the cuboid is without T1 marrow signal loss or bone destruction to specifically diagnose osteomyelitis or contiguous spread of malignancy. This is unchanged since December 14, 2021. 4. Edema-like signal in the middle cuneiform is new since December 14, 2021 and does include T1 marrow signal loss; however, there is no clearly identified skin ulcer adjacent to this location. Recommend correlation with physical exam. If there is an adjacent skin ulcer, this would be highly concerning for osteomyelitis; otherwise, metastatic disease to this location would be uncommon. This may potentially reflect stress related marrow changes. Dictated by: Dictated on workstation # [id number]
== END ==
LOC: RAD 12:34
PROVIDERS: ATTEND Family Medicine
DX: T86.828 Other complications of skin graft (allograft) (autograft) (principal); N18.30 Chronic kidney disease, stage 3 unspecified; L74.8 Other eccrine sweat disorders; M86.172 Other acute osteomyelitis, left ankle and foot; Z85.828 Personal history of other malignant neoplasm of skin; L97.509 Non-pressure chronic ulcer of other part of unspecified foot with unspecified severity
CPT/HCPCS: 73721

== ENCOUNTER 2022-08-28 10:28 | Emergency (ER) | payer MEDICARE ==
[~2022-08-28] VITALS: Ht 172.2 cm; Wt 72.7 kg
[~2022-08-28 10:28] MED LIST changes: +ALBU8.5H6 IH; -GADOTERATE 0.5 MMOL/ML (CLARISCAN) 15 ML VIAL IV ONE; -RT-ALBUINH IH
[2022-08-28] MEDS ORDERED: IBUPROFEN 600 MG (MOTRIN) TAB PO ONE (11:30)
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
--- NOTE | 2022-08-28 11:56 | Diagnostic Imaging Report ---
EXAMINATION: Chest 1 view HISTORY: Cough. COMPARISON: 12/21/2018. FINDINGS: The lung volumes are normal. No focal consolidation is seen. No large pleural effusion or pneumothorax is seen. The cardiomediastinal silhouette is normal in size and contour. No acute osseous abnormality is seen. IMPRESSION: 1. No acute pleuroparenchymal process. Dictated by: Dictated on workstation # [id number]
[2022-08-28] MEDS ORDERED: DEXT30SU5 PO ×2 (12:13→12:24)
[2022-08-28 12:25] VITALS: BP 137/94
== END 2022-08-28 12:25 | disposition home or self-care (01) ==
LOC: EDUNIT# 10:28 → ER 10:31
DX: B34.9 Viral infection, unspecified (principal); R05.9 Cough, unspecified; R51.9 Headache, unspecified; R50.9 Fever, unspecified; Z20.822 Contact with and (suspected) exposure to COVID-19; Z28.310 Unvaccinated for COVID-19
CPT/HCPCS: 71045; 87636

== ENCOUNTER 2022-08-29 19:28 | Emergency (ER) | payer MEDICARE ==
[~2022-08-29 19:28] MED LIST changes: +DEXT30SU5 PO
[2022-08-29] MEDS ORDERED: ACETAMINOPHEN 500 MG TAB (TYLENOL) PO STA (19:53)
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
[2022-08-29] MEDS ORDERED: PROMETHAZINE/ CODEINE SYRUP 5 ML UDC PO ONE (20:00)
[2022-08-29] MEDS ORDERED: ONDANSETRON 4 MG/2 ML (SDV) Z0FRAN IVP ONE (20:00)
[2022-08-29 20:21] LABS: BASOPHILS % (AUTO) 0 % (0-10); EOSINOPHILS % (AUTO) 0 % (0-10); HEMATOCRIT 46 % (40-54); LYMPHOCYTES # (AUTO) 0.6 10^3/uL (1.0-4.0); LYMPHOCYTES % (AUTO) 6 % (12-44); MEAN CORPUSCULAR HEMOGLOBIN 31 pg (25-34); MEAN CORPUSCULAR HGB CONC 35 g/dL (32-36); MEAN CORPUSCULAR VOLUME 88 fL (80-99); MEAN PLATELET VOLUME 9.8 fL (9.0-12.2); MONOCYTES # (AUTO) 0.8 10^3/uL (0.0-1.0); MONOCYTES % (AUTO) 10 % (0-12); NEUTROPHILS # (AUTO) 7.2 10^3/uL (1.8-7.8); NEUTROPHILS % (AUTO) 83 % (42-75); PLATELET COUNT 222 10^3/uL (130-400); WHITE BLOOD COUNT 8.6 10^3/uL (4.3-11.0)
[2022-08-29 20:48] LABS: ALBUMIN 3.7 GM/DL (3.2-4.5); BAND NEUTROPHILS 1 %; BILIRUBIN,TOTAL 0.8 MG/DL (0.1-1.0); CREATININE SERUM 1.17 MG/DL (0.60-1.30); LYMPHOCYTES % (MANUAL) 9 %; MONOCYTES % (MANUAL) 3 %; NEUTROPHILS % (MANUAL) 87 %; PLATELET ESTIMATE NORMAL; POTASSIUM 3.4 MMOL/L (3.6-5.0); TOTAL PROTEIN 7.3 GM/DL (6.4-8.2)
[2022-08-29 20:49] LABS: RBC MORPH NORMAL
[2022-08-29] MEDS ORDERED: NS IV 500 ML 500 ML IV ONE (21:30)
[2022-08-29 22:11] LABS: CLARITY,URINE CLEAR; COLOR,URINE YELLOW; GLUCOSE, URINE (UA) NEGATIVE (NEGATIVE); KETONES,URINE 2+ (NEGATIVE); LEUKOCYTE ESTERASE ,URINE NEGATIVE (NEGATIVE); NITRITE,URINE NEGATIVE (NEGATIVE); PH,URINE 6.5 (5-9); PROTEIN,URINE 2+ (NEGATIVE)
[2022-08-29 22:24] LABS: BACTERIA,URINE TRACE /HPF; RBC,URINE 0-2 /HPF; SQUAMOUS EPITHELIAL CELL,UR 0-2 /HPF; WBC,URINE 0-2 /HPF
[2022-08-29 22:25] LABS: AMORPHOUS SEDIMENT,UR FEW AMOR URATES /LPF
[2022-08-29 23:30] VITALS: BP 141/92
[2022-08-30 08:28] LABS: BILIRUBIN,URINE 1+ (NEGATIVE)
== END 2022-08-29 23:30 | disposition home or self-care (01) ==
LOC: EDUNIT# 19:28 → ER 19:30
DX: R50.9 Fever, unspecified (principal); R79.82 Elevated C-reactive protein (CRP); M79.10 Myalgia, unspecified site; R05.8 Other specified cough; R09.81 Nasal congestion; R06.02 Shortness of breath; F17.210 Nicotine dependence, cigarettes, uncomplicated
CPT/HCPCS: 36415; 80053; 81000; 84145; 85007; 85027; 86141; 99283